=== PATIENT | male | born 1985 | race African-American/Black ===

== ENCOUNTER 2019-12-20 09:15 | Outpatient (REF) | payer OTHER, SELFPAY ==
[2019-12-20 11:02] LABS: Alanine Aminotransferase 74 U/L (0-40); Albumin Level 4.4 g/dL (3.5-5.0); Alkaline Phosphatase 53 U/L (39-117); Anion Gap 12 (12-20); Aspartate Amino Transferase 48 U/L (5-37); Bilirubin Total 0.7 mg/dL (0.0-1.0); Blood Urea Nitrogen 11 mg/dL (9-16); Calcium 8.4 mg/dL (8.4-10.2); Carbon Dioxide 24 mmol/L (22-29); Chloride 105 mmol/L (96-108); Cholesterol 246 mg/dL; Estimated Glomerular Filt Rate > 60; Glucose Fasting 88 mg/dL (60-99); HDL Cholesterol 72 mg/dL; LDL Cholesterol Calculated 153 mg/dl; Potassium 4.1 mmol/l (3.3-5.1); Sodium 137 mmol/L (135-145); Total Protein 7.3 g/dL (6.5-8.0); Triglycerides 105 mg/dL
[2019-12-20 11:11] LABS: Estimated Average Glucose 111 mg/dL; Hemoglobin A1c % 5.5 %
[2019-12-20 11:41] LABS: HBsAGNum1 0.24 S/CO (0.00-0.99); HIV AB/AG Nonreactive (Nonreactive); HIV Num 1 0.07 S/CO (0.00-0.99); Hepatitis B Surface Antigen Negative (Negative)
[2019-12-20 11:44] LABS: HBS Num1 133.55 mIU/mL (0-7.99); HBc Num1 0.05 S/CO (0.00-0.79); Hepatitis B Core Antibody Nonreactive (Nonreactive); ~HepC Num1 0.14 S/CO (0.00-0.79); ~Hepatitis B Surface Antibody REACTIVE (Nonreactive); ~Hepatitis C Antibody Nonreactive (Nonreactive)
[2019-12-20 11:47] LABS: Syphilis Screen Nonreactive (Nonreactive)
[2019-12-25 13:52] LABS: Chlamydia Pneumoniae IgA <1:16 titer (<1:16); Chlamydia Pneumoniae IgM <1:10 titer (<1:10); Chlamydia Psittaci IgA <1:16 titer (<1:16); Chlamydia Psittaci IgG <1:64 titer (<1:64); Chlamydia Psittaci IgM <1:10 titer (<1:10); Chlamydia Trachomatis IgA <1:16 titer (<1:16); Chlamydia Trachomatis IgG <1:64 titer (<1:64); Chlamydia Trachomatis IgM <1:10 titer (<1:10)
== END 2019-12-20 09:16 | disposition home or self-care (01) ==
LOC: HO.LAB 09:15
PROVIDERS: Visit Provider Physician Assistant
DX: Z13.1 Encounter for screening for diabetes mellitus (principal); Z13.220 Encounter for screening for lipoid disorders; Z11.3 Encounter for screening for infections with a predominantly sexual mode of transmission; Z11.4 Encounter for screening for human immunodeficiency virus [HIV]
CPT/HCPCS: 80053; 80061; 83036; 86631; 86632; 86704; 86706; 86780; 86803; 87340; 87389

== ENCOUNTER 2020-02-15 23:30 | Emergency (ER) | payer MEDICARE, MEDICAID, SELFPAY ==
[2020-02-15 23:32] VITALS: BP 131/76; PULSE 120; RESP 18; TEMP 36.4; O2SAT 96; BMI 30.7
--- NOTE | 2020-02-16 | ED_ITS ---
HPI - Chest Pain General Chief Complaint: Chest Pain Stated Complaint: CHEST PAIN Time Seen by Provider: 02/15/20 23:54 Source: patient Mode of arrival: ambulatory Limitations: no limitations History of Present Illness HPI narrative: Patient with no significant risk factor for coronary disease been having pain in the right lower part of the chest continues for last 2 days increases on palpation and movements no shortness of breath feels anxious was at [facility] 2 days ago for headache. complaint: chest pain Onset (ago): day(s) (2) Timing of current episode: constant Prior episodes: No Onset: during rest Pain location: right chest Pain radiation: none Severity: mild Quality: dull Relieving factors: nothing Exacerbating factors: palpation and movement Treatment prior to arrival: none Risk Factors Coronary artery disease risk factors: none Related Data Previous Rx's Medication Instructions Recorded albuterol sulfate 90 mcg/actuation 2 puff INHALATION Q6H PRN 30 Days 12/18/19 aerosol inhaler #8.5 g montelukast 10 mg tablet 10 mg PO BEDTIME 30 Days #30 tab 12/18/19 atomoxetine 40 mg capsule 40 mg PO DAILY #30 cap 02/05/20 Allergies Allergy/AdvReac Type Severity Reaction Status Date / Time No Known Allergies Allergy Verified 12/16/19 15:08 [No Known Allergies*] Review of Systems Review of Systems: Constitutional : No Weight loss, No Fever, No Chills ENT/Mouth : No sore throat, No Rhinorrhea Eyes: No Eye Pain, No Swelling Cardiovascular : + Chest Pain, no palpitations Respiratory : No Cough, No Sputum, no shortness of breath Gastrointestinal : no Nausea, No Vomiting, No Diarrhea, No abdominal Pain, no black stools Genitourinary : No Dysuria, No Urinary Frequency Musculoskeletal : No joint pain, No Myalgias, No Joint Swelling Skin : No Skin Lesions, No rash Neuro : No Weakness, No Numbness, No Dizziness, No Headache Psych : No Anxiety/Panic, No Depression Heme/Lymph: No Bruising, No Lymphadenopathy Endocrine : No Polyuria, No Polydipsia All other systems reviewed and are negative [facility] Past Medical History Medical History ADHD Asthma Social History Social History Alcohol intake: current Smoking Status: Never smoker Advance Directives: No Advance Directives Information Provided: No Physical Exam Vital Signs: Vital Signs: Last Vital Signs Temp 97.8 F 02/16/20 00:03 Pulse 106 H 02/16/20 00:03 Resp 20 02/16/20 00:03 BP 124/86 02/16/20 00:03 Pulse Ox 95 02/16/20 00:03 Body Mass Index 30.7 Appearance: Alert. Oriented X3. No acute distress. Anxious Eyes: Pupils equal, round and reactive to light. ENT: Pharynx normal. Neck: Normal inspection. Neck supple. CVS: Normal heart rate and rhythm. Pulses normal. Local muscular tenderness right lower chest in the front Respiratory: No respiratory distress. Breath sounds normal. Abdomen: Soft and nontender. Bowel sounds are present, no mass palpable, no CVA tenderness Skin: Skin warm and dry. Normal skin color. Normal skin turgor. Extremities: No lower extremity edema. No calf tenderness Neuro: Oriented X 3. No motor deficit. No sensory deficit. MDM - Chest Pain Lab Data Attestation: I reviewed the patient's lab results. ECG Data ECG #1: Attestation: I personally reviewed and interpreted this ECG as follows: Interpretation: Sinus tachycardia heart rate [address] T wave changes normal axis normal intervals impression sinus tachycardia no acute ischemia Discharge Plan Discharge Prescriptions: No Action albuterol sulfate 90 mcg/actuation HFA aerosol inhaler 2 puff inhalation Q6H PRN (Reason: shortness of breath or wheezing) 30 Days Qty: 8.5 RF: 3 montelukast [Singulair] 10 mg tablet 10 mg PO BEDTIME 30 Days Qty: 30 RF: 1 atomoxetine 40 mg capsule 40 mg PO DAILY Qty: 30 RF: 0
[2020-02-16 00:03] VITALS: BP 124/86; PULSE 106; RESP 20; TEMP 36.6; O2SAT 95
--- NOTE | 2020-02-16 00:08 | ECG_ITS ---
Test Reason : CP Blood Pressure : / mmHG Vent. Rate : 111 BPM Atrial Rate : 111 BPM P-R Int : 128 ms QRS Dur : 084 ms QT Int : 322 ms P-R-T Axes : 034 -17 027 degrees QTc Int : 437 ms Sinus tachycardia Otherwise normal ECG No previous ECGs available Referred By: Brandon Mathis Electronically Signed By:HADLEY HITCHCOCK
--- NOTE | 2020-02-16 00:08 | XR_ITS ---
EXAMINATION: XR CHEST CLINICAL INFORMATION: Right-sided chest pain COMPARISON: 11/15/2016 TECHNIQUE: Frontal view of the chest was obtained. FINDINGS: Cardiac leads overlie the chest. Lung volumes are low. There is no focal consolidation, edema, or effusion. No pneumothorax. The cardiomediastinal silhouette is within normal limits. No acute osseous abnormality. XR/XR chest 1V IMPRESSION: Hypoexpanded, clear lungs.
[2020-02-16] MEDS: traMADoL HCL 50 MG TABLET PO (01:03)
== END 2020-02-16 01:06 | disposition home or self-care (01) ==
PROVIDERS: Emergency Provider Internal Medicine; PCP Physician Assistant
DX: R07.9 Chest pain, unspecified (principal); Z79.899 Other long term (current) drug therapy
CPT/HCPCS: 71045; 93005; 99284

== ENCOUNTER 2020-02-21 04:40 | Emergency (ER) | payer MEDICARE, SELFPAY ==
[2020-02-21 04:45] VITALS: BP 165/95; PULSE 106; RESP 18; TEMP 36.8; O2SAT 97; BMI 30.7
--- NOTE | 2020-02-21 05:14 | ECG_ITS ---
Test Reason : CHEST PAIN Blood Pressure : / mmHG Vent. Rate : 105 BPM Atrial Rate : 105 BPM P-R Int : 130 ms QRS Dur : 078 ms QT Int : 338 ms P-R-T Axes : 028 -13 012 degrees QTc Int : 446 ms Sinus tachycardia Otherwise normal ECG When compared with ECG of 15-FEB-2020 23:54, No significant change was found Referred By: Milena Hernandez Electronically Signed By:Feroz Londono
--- NOTE | 2020-02-21 05:14 | XR_ITS ---
EXAMINATION: XR CHEST CLINICAL INFORMATION: Pain COMPARISON: 02/16/2020 TECHNIQUE: Frontal view of the chest was obtained. FINDINGS: Lung volumes are low. No consolidation, edema, or effusion. No pneumothorax. The cardiomediastinal silhouette is within normal limits. XR/XR chest 1V IMPRESSION: Clear lungs.
--- NOTE | 2020-02-21 05:15 | ED_ITS ---
HPI - Chest Pain General Chief Complaint: Chest Pain Stated Complaint: Chest pain Time Seen by Provider: 02/21/20 04:51 Source: patient Mode of arrival: ambulatory Limitations: no limitations History of Present Illness HPI narrative: 34 yo male with asthma comes in with c/o 1 week of chest pain that is reproduceable to palpation and also anxiety, he c/o pain worse at night that is burning in nature and he c/o increased bloating/belching and having the taste of regurgitated food. MD complaint: chest pain Onset (ago): week(s) (1) Timing of current episode: episodic Prior episodes: No Onset: awoke with symptoms and other (worse with laying flat) Pain location: substernal and epigastric Pain radiation: none Severity: moderate Quality: burning Relieving factors: nothing Exacerbating factors: eating and supine Associated symptoms: nausea, dyspnea and other (anxiety) Treatment prior to arrival: none Related Data Previous Rx's Medication Instructions Recorded albuterol sulfate 90 mcg/actuation 2 puff INHALATION Q6H PRN 30 Days 12/18/19 aerosol inhaler #8.5 g montelukast 10 mg tablet 10 mg PO BEDTIME 30 Days #30 tab 12/18/19 atomoxetine 40 mg capsule 40 mg PO DAILY #30 cap 02/05/20 lorazepam [Ativan] 1 mg PO BEDTIME PRN #7 tab 02/16/20 tramadol 50 mg PO Q6H PRN #14 tab 02/16/20 cyclobenzaprine 10 mg PO TID PRN #14 tab 02/21/20 Allergies Allergy/AdvReac Type Severity Reaction Status Date / Time No Known Allergies Allergy Verified 12/16/19 15:08 [No Known Allergies*] Review of Systems Review of Systems: Constitutional : No Weight loss, No Fever, No Chills ENT/Mouth : No sore throat, No Rhinorrhea Eyes: No Eye Pain, No Swelling Cardiovascular : pos Chest Pain, pos SOB, no Dyspnea on Exertion, No Orthopnea, No Edema, No Palpitations Respiratory : No Cough, No Sputum Gastrointestinal : pos Nausea, No Vomiting, No Diarrhea, No abdominal Pain, No Hematochezia, No Melena Genitourinary : No Dysuria, No Urinary Frequency Musculoskeletal : No joint pain, No Myalgias, No Joint Swelling Skin : No Skin Lesions, No rash Neuro : No Weakness, No Numbness, No Dizziness, No Headache Psych : No Anxiety/Panic, No Depression Heme/Lymph: No Bruising, No Lymphadenopathy Endocrine : No Polyuria, No Polydipsia All other systems reviewed and are negative [facility] Past Medical History Attestation statement: The following information was validated with the patient. Medical History ADHD Asthma Social History Social History Alcohol intake: current Smoking Status: Never smoker Advance Directives: No Physical Exam Vital Signs: Vital Signs: Last Vital Signs Temp 98.3 F 02/21/20 04:45 Pulse 106 H 02/21/20 04:45 Resp 18 02/21/20 04:45 BP 165/95 H 02/21/20 04:45 Pulse Ox 97 02/21/20 04:45 Body Mass Index 30.7 Appearance: Alert. Oriented X3. No acute distress. Eyes: Pupils equal, round and reactive to light. ENT: Pharynx normal. Neck: Normal inspection. Neck supple. CVS: Normal heart rate and rhythm. Pulses normal. Chest: ttp along bilateral lower ribs Respiratory: No respiratory distress. Breath sounds normal. Abdomen: Soft and nontender. Skin: Skin warm and dry. Normal skin color. Normal skin turgor. Extremities: No lower extremity edema. No calf ttp Neuro: Oriented X 3. No motor deficit. No sensory deficit. Course Course Course Narrative: patient rude to RN , now stating he refuses blood work and wants to leave, explained to him without labs I cannot fully diagnose what is going on, he states I am not doing bloodwork and still wants to leave MDM - Chest Pain MDM Narrative Medical decision making narrative: 34 yo male here with 1 week of reproduceable chest pain worse at night while laying flat c/o bloating/belching and burning in throat, no sig ACS risk factors, no signs of DVT, no hypxoa seems unusual for PE to be worse at night with associated GERD symptoms, labs, EKG, CXR, GI cocktail ordered, dispo per results and findings. ECG Data ECG #1: Attestation: I personally reviewed and interpreted this ECG as follows: ECG interpretation date: 02/21/20 ECG interpretation time: 05:36 Interpretation: Rate: 105 Rhythm: sinus tachycardia [place]: left Normal P waves. Normal [place]. Normal QRS complex. ST T wave : no MONIKA, normal qTC: normal prior studies: no acute ischemia The study has been interpreted contemporaneously by me. . Discharge Plan Discharge Clinical Impression: Chest pain Patient Disposition: Left Against Medical Advice Instructions: Chest Pain (ED), Against Medical Advice (ED) Additional Instructions: return to ED for any worsening symptoms or concerns you left prior to blood work, you had an EKG and CXR but it cannot be determined at this time what is causing your pain please follow up with your doctor Prescriptions: New cyclobenzaprine 10 mg tablet 10 mg PO TID PRN (Reason: muscle spasm) Qty: 14 RF: 0 No Action albuterol sulfate 90 mcg/actuation HFA aerosol inhaler 2 puff inhalation Q6H PRN (Reason: shortness of breath or wheezing) 30 Days Qty: 8.5 RF: 3 montelukast [Singulair] 10 mg tablet 10 mg PO BEDTIME 30 Days Qty: 30 RF: 1 atomoxetine 40 mg capsule 40 mg PO DAILY Qty: 30 RF: 0 tramadol 50 mg tablet 50 mg PO Q6H PRN (Reason: pain) Qty: 14 RF: 0 lorazepam [Ativan] 1 mg tablet 1 mg PO BEDTIME PRN (Reason: anxiety) Qty: 7 RF: 0 Referrals: Giacomo Chu PA-C [Primary Care Provider] - 2 days Stand Alone Forms: Work/School Release
[2020-02-21] MEDS: Magnesium Hydrox/Alum Hydrox 30 ML ORAL.SUSP PO (05:48)
[2020-02-21] MEDS: Lidocaine HCl Viscous 2 % 15 ML SOLUTION MUCOUS MEM (05:48)
[2020-02-21] MEDS: LORazepam 0.5 MG TABLET PO (05:48)
== END 2020-02-21 06:05 | disposition left against medical advice (07) ==
PROVIDERS: Emergency Provider Emergency Medicine; PCP Physician Assistant
DX: R07.9 Chest pain, unspecified (principal); F41.1 Generalized anxiety disorder; F43.0 Acute stress reaction; Z79.899 Other long term (current) drug therapy
CPT/HCPCS: 71045; 93005; 99283

== ENCOUNTER 2020-02-28 23:17 | Emergency (ER) | payer MEDICARE, MEDICAID, SELFPAY ==
[2020-02-28 23:32] VITALS: BP 134/87; PULSE 112; RESP 16; TEMP 36.6; O2SAT 96; BMI 30.7
--- NOTE | 2020-02-29 00:47 | ECG_ITS ---
Test Reason : HEADACHES Blood Pressure : / mmHG Vent. Rate : 097 BPM Atrial Rate : 097 BPM P-R Int : 132 ms QRS Dur : 076 ms QT Int : 342 ms P-R-T Axes : 043 -15 015 degrees QTc Int : 434 ms Normal sinus rhythm Normal ECG When compared with ECG of 21-FEB-2020 05:30, No significant change was found Referred By: Generic ED Physician Electronically Signed By:GIO TRIPATHI MD
[2020-02-29 01:05] LABS: MANUAL DIFF FLAG NO
[2020-02-29 01:10] LABS: Basophils Percent Auto 0.6 % (0-2); Eosinophils Absolute Auto 0.2 X10*3/uL (0.0-0.4); Eosinophils Percent Auto 3.8 % (0-4); Hematocrit 45.1 % (42-52); Hemoglobin 14.8 g/dl (14.0-18.0); Imm Gran Abs Auto 0.02 X10*3/uL (0.00-0.03); Imm Gran Pct Auto 0.4 % (0.0-0.4); Lymphocytes Absolute Auto 1.8 X10*3/uL (1.2-4.9); Mean Corpuscular HGB Conc 32.8 g/dl (31.0-36.0); Mean Corpuscular Hemoglobin 27.4 pg (27.0-33.0); Mean Corpuscular Volume 83.5 fL (80-98); Mean Platelet Volume 9.6 fL (9.4-12.4); Monocytes Absolute Auto 0.6 X10*3/uL (0.1-1.2); Monocytes Percent Auto 12.1 % (2-11); Neutrophils Absolute Auto 2.1 X10*3/uL (2.0-8.3); Neutrophils Percent Auto 45.1 % (45-73); Platelet Count 273 X10*3/uL (160-400); Red Cell Distribution Width 13.2 % (11.0-16.0); White Blood Count 4.7 X10*3/uL (4.8-10.8)
[2020-02-29 01:33] LABS: Anion Gap 13 (12-20); Blood Urea Nitrogen 12 mg/dL (9-16); Calcium 9.1 mg/dL (8.4-10.2); Carbon Dioxide 24 mmol/L (22-29); Chloride 107 mmol/L (96-108); Creatinine Clr Calc Pharmacy 165.7; Estimated Glomerular Filt Rate > 60; Glucose Random 108 mg/dL (60-115); Sodium 140 mmol/L (135-145)
[2020-02-29 01:38] LABS: Troponin-I High Sensitivity < 3.5 ng/L (<3.5-35.0)
[2020-02-29 02:00] VITALS: BP 106/78; PULSE 98; RESP 18; TEMP 36.6; O2SAT 98
--- NOTE | 2020-02-29 03:33 | ED.HA ---
HPI - Headache General Chief Complaint: General Medical Stated Complaint: MIGRAINE Time Seen by Provider: 02/29/20 03:30 Source: patient Mode of arrival: ambulatory History of Present Illness HPI Narrative: This is a 34-year-old male with ADHD, asthma who presents with a headache that he has been experiencing for the past couple of days and denies any falls, visual changes, but does describe some photosensitivity without neck tenderness and otherwise denies any speech or extremity sensory or motor changes. Related Data Previous Rx's Medication Instructions Recorded albuterol sulfate 90 mcg/actuation 2 puff INHALATION Q6H PRN 30 Days 12/18/19 aerosol inhaler #8.5 g montelukast 10 mg tablet 10 mg PO BEDTIME 30 Days #30 tab 12/18/19 atomoxetine 40 mg capsule 40 mg PO DAILY #30 cap 02/05/20 lorazepam [Ativan] 1 mg PO BEDTIME PRN #7 tab 02/16/20 tramadol 50 mg PO Q6H PRN #14 tab 02/16/20 cyclobenzaprine 10 mg PO TID PRN #14 tab 02/21/20 Allergies Allergy/AdvReac Type Severity Reaction Status Date / Time No Known Allergies Allergy Verified 02/28/20 23:31 [No Known Allergies*] Review of Systems Review of Systems: Pertinent positives and negatives as stated in HPI 10 point review of systems is otherwise negative. PMFSH Past Medical History Source: nursing notes reviewed Medical History ADHD Asthma Social History Social History Alcohol intake: current Smoking Status: Never smoker Advance Directives: No Advance Directives Information Provided: No Physical Exam Vital Signs: Vital Signs: Last Vital Signs Temp 97.8 F 02/29/20 02:00 Pulse 95 02/29/20 04:00 Resp 18 02/29/20 04:00 BP 108/72 02/29/20 04:00 Pulse Ox 98 02/29/20 04:00 Body Mass Index 30.7 VITAL SIGNS: Reviewed. GENERAL: Well developed, well nourished, in no acute distress. HEAD: Normocephalic/atraumatic, EYES: PERRLA, EOMI EARS: Ext canals without abnormality NOSE: Nares patent bilateral OROPHARYNX: no oral lesions noted, posterior pharynx clear NECK: Supple, no adenopathy LUNGS: Normal breath sounds. No adventitious sounds or accessory muscle use. SpO2<96> CARDIOVASCULAR: Regular rate and rhythm without noted murmurs, no JVD or lower extremity edema. ABDOMEN: Soft, non-tender, non-distended with bowel sounds. No rigidity. No guarding. No palpable masses or hernias noted SKIN: Inspection of the skin reveals no rashes NEUROLOGIC: Alert and oriented x 4. Strength and sensation to light touch were grossly intact x 4, no pronator drift. Course Course Course Narrative: This is a 34-year-old male with history and clinical presentation consistent headache associated with likely job-related stress and strain without any concerning findings of neurological deficits. No evidence to suggest intracranial bleeds and patient has been worked up for chest pain previously and again presents with an EKG that does not show any acute findings and a negative high sensitivity troponin. On review of remaining lab work there is no evidence systemic infection or anemia and patient responded well to the migraine cocktail and was discharged in stable condition with instructions to follow-up with his primary care provider. MDM - Headache Lab Data Result diagrams: 02/29/20 00:59 02/29/20 00:59 Labs: Lab Results 02/29/20 02/29/20 02/29/20 Range/Units 00:59 00:59 00:59 WBC 4.7 L (4.8-10.8) X10*3/uL RBC 5.40 (4.60-5.80) X10*6/uL Hgb 14.8 (14.0-18.0) g/dl Hct 45.1 (42-52) % MCV 83.5 (80-98) fL MCH 27.4 (27.0-33.0) pg MCHC 32.8 (31.0-36.0) g/dl RDW 13.2 (11.0-16.0) % Plt Count 273 (160-400) X10*3/uL MPV 9.6 (9.4-12.4) fL Immature Gran % (Auto) 0.4 (0.0-0.4) % Neut % (Auto) 45.1 (45-73) % Lymph % (Auto) 38.0 (20-40) % [place] % (Auto) 12.1 H (2-11) % Eos % (Auto) 3.8 (0-4) % Baso % (Auto) 0.6 (0-2) % Lymph # (Auto) 1.8 (1.2-4.9) X10*3/uL [place] # (Auto) 0.6 (0.1-1.2) X10*3/uL Eos # (Auto) 0.2 (0.0-0.4) X10*3/uL Baso # (Auto) 0.0 (0.0-0.2) X10*3/uL Abs Immat Gran (auto) 0.02 (0.00-0.03) X10*3/uL Absolute Neuts (auto) 2.1 (2.0-8.3) X10*3/uL Absolute Nucleated RBC 0.000 (0.0-0.012) X10*3/uL Nucleated RBC % (auto) 0.0 (0.0-0.2) /100WBC Hold Blue Top SEE NOTE Sodium 140 (135-145) mmol/L Potassium 4.0 (3.3-5.1) mmol/l Chloride 107 (96-108) mmol/L Carbon Dioxide 24 (22-29) mmol/L Anion Gap 13 (12-20) BUN 12 (9-16) mg/dL Creatinine 0.77 (0.5-1.4) mg/dL Estim Creat Clear Calc 165.7 Estimated GFR > 60 Random Glucose 108 (60-115) mg/dL Calcium 9.1 D (8.4-10.2) mg/dL Troponin I High Sens (<3.5-35.0) ng/L 02/29/20 Range/Units 00:59 WBC (4.8-10.8) X10*3/uL RBC (4.60-5.80) X10*6/uL Hgb (14.0-18.0) g/dl Hct (42-52) % MCV (80-98) fL MCH (27.0-33.0) pg MCHC (31.0-36.0) g/dl RDW (11.0-16.0) % Plt Count (160-400) X10*3/uL MPV (9.4-12.4) fL Immature Gran % (Auto) (0.0-0.4) % Neut % (Auto) (45-73) % Lymph % (Auto) (20-40) % [place] % (Auto) (2-11) % Eos % (Auto) (0-4) % Baso % (Auto) (0-2) % Lymph # (Auto) (1.2-4.9) X10*3/uL [place] # (Auto) (0.1-1.2) X10*3/uL Eos # (Auto) (0.0-0.4) X10*3/uL Baso # (Auto) (0.0-0.2) X10*3/uL Abs Immat Gran (auto) (0.00-0.03) X10*3/uL Absolute Neuts (auto) (2.0-8.3) X10*3/uL Absolute Nucleated RBC (0.0-0.012) X10*3/uL Nucleated RBC % (auto) (0.0-0.2) /100WBC Hold Blue Top Sodium (135-145) mmol/L Potassium (3.3-5.1) mmol/l Chloride (96-108) mmol/L Carbon Dioxide (22-29) mmol/L Anion Gap (12-20) BUN (9-16) mg/dL Creatinine (0.5-1.4) mg/dL Estim Creat Clear Calc Estimated GFR Random Glucose (60-115) mg/dL Calcium (8.4-10.2) mg/dL Troponin I High Sens < 3.5 (<3.5-35.0) ng/L ECG Data Attestation: I personally reviewed and interpreted this ECG as follows: Prior ECG tracings: available for review (02/21/2020 no acute changes on comparison) Interpretation: Normal sinus rhythm, HR-97, no evidence of acute ischemia, MT/QRS/QTC are within normal limits. Discharge Plan Discharge Clinical Impression: Headache Qualifiers: Headache type: unspecified Headache chronicity pattern: unspecified pattern Intractability: not intractable Qualified Code(s): R51.9 - Headache, unspecified Patient Disposition: Home, Self-Care Instructions: General Headache (ED) Additional Instructions: 1. Increase fluid hydration especially with water. 2. Tylenol 1000 mg, orally, every 6 hours as needed for headache control. Do not exceed 4000 mg within 24 hours. 3. Ibuprofen 400 mg, orally with milk or food, every 6 hours as needed for headache control. You may take in combination with the Tylenol for increased effect of headache control. 4. Please follow-up with your primary care provider by calling the office this morning. Please do not hesitate to return to the emergency department should she experience any worsening or new symptoms. Prescriptions: No Action albuterol sulfate 90 mcg/actuation HFA aerosol inhaler 2 puff inhalation Q6H PRN (Reason: shortness of breath or wheezing) 30 Days Qty: 8.5 RF: 3 montelukast [Singulair] 10 mg tablet 10 mg PO BEDTIME 30 Days Qty: 30 RF: 1 atomoxetine 40 mg capsule 40 mg PO DAILY Qty: 30 RF: 0 cyclobenzaprine 10 mg tablet 10 mg PO TID PRN (Reason: muscle spasm) Qty: 14 RF: 0 tramadol 50 mg tablet 50 mg PO Q6H PRN (Reason: pain) Qty: 14 RF: 0 lorazepam [Ativan] 1 mg tablet 1 mg PO BEDTIME PRN (Reason: anxiety) Qty: 7 RF: 0 Referrals: Giacomo Chu PA-C [Primary Care Provider] - 2 days (Please re-evaluate for headache that is suspected to be tension in nature.)
[2020-02-29 04:00] VITALS: BP 108/72; PULSE 95; RESP 18; O2SAT 98
[2020-02-29] MEDS: 0.9 % Sodium Chloride 1,000 ML 999 ML IV (04:34)
[2020-02-29] MEDS: diphenhydrAMINE HCL 50 MG/ML VIAL 25 MG IVPUSH (04:35)
[2020-02-29] MEDS: Acetaminophen 325 MG TABLET 975 MG PO (04:35)
[2020-02-29] MEDS: Ketorolac Tromethamine 15 MG/ML VIAL IVPUSH (04:36)
[2020-02-29] MEDS: Metoclopramide HCl 10 MG/2 ML VIAL IVPUSH (04:36)
[2020-02-29 06:00] VITALS: BP 111/71; PULSE 88; RESP 18; O2SAT 98
== END 2020-02-29 06:15 | disposition home or self-care (01) ==
PROVIDERS: Emergency Provider Student in an Organized Health Care Education/Training Program; PCP Physician Assistant
DX: G43.909 Migraine, unspecified, not intractable, without status migrainosus (principal); Z79.899 Other long term (current) drug therapy
CPT/HCPCS: 36415; 80048; 84484; 85025; 93005; 96361; 96374; 96375; 99284; J1200; J1885; J2765

== ENCOUNTER 2020-04-17 18:16 | Emergency (ER) | payer MEDICARE, MEDICAID, SELFPAY ==
--- NOTE | ~2020-04-17 | XR_ITS ---
EXAMINATION: XR CHEST CLINICAL INFORMATION: Upper respiratory tract infection COMPARISON: 02/21/2020 TECHNIQUE: Frontal view of the chest was obtained. FINDINGS: The lungs are hypoexpanded. Heart size is normal. No evidence of CHF. There is some patchy density seen at the left lung base with some new obscuration left hemidiaphragm consistent with a left lower lobe infiltrate. No pleural effusions are seen. The right lung is clear. XR/XR chest 1V IMPRESSION: Patchy density left lung base consistent with infiltrate.
[2020-04-17 18:42] VITALS: BP 123/79; PULSE 108; RESP 18; TEMP 36.7; O2SAT 96; BMI 37.0
--- NOTE | 2020-04-17 19:11 | ED.SOB ---
HPI - SOB/Dyspnea General Chief Complaint: Dyspnea Stated Complaint: sob Time Seen by Provider: 04/17/20 18:57 Source: patient Mode of arrival: ambulatory Limitations: no limitations History of Present Illness HPI Narrative: 34-year-old male with past medical history of asthma and ADHD presents with COVID like symptoms, shortness of breath, subjective fever and chills, sore throat and fatigue for the past 2 days. He does not report any chest pain or pressure, palpitations, abdominal pain, abdominal distention, dysuria, hematuria, loss of balance, weakness, or edema. Related Data Previous Rx's Medication Instructions Recorded albuterol sulfate 90 mcg/actuation 2 puff INHALATION Q6H PRN 30 Days 12/18/19 aerosol inhaler #8.5 g montelukast 10 mg tablet 10 mg PO BEDTIME 30 Days #30 tab 12/18/19 atomoxetine 40 mg capsule 40 mg PO DAILY #30 cap 02/05/20 lorazepam [Ativan] 1 mg PO BEDTIME PRN #7 tab 02/16/20 tramadol 50 mg PO Q6H PRN #14 tab 02/16/20 cyclobenzaprine 10 mg PO TID PRN #14 tab 02/21/20 albuterol sulfate 2 puff INHALATION Q4-6H PRN #8.5 g 04/17/20 azithromycin 250 mg PO DAILY 4 Days #4 tab 04/17/20 benzonatate [Tessalon Perles] 100 mg PO TID PRN #30 cap 04/17/20 cefuroxime axetil 500 mg PO Q12H 7 Days #14 tab 04/17/20 Allergies Allergy/AdvReac Type Severity Reaction Status Date / Time No Known Allergies Allergy Verified 04/17/20 18:47 [No Known Allergies*] Review of Systems Review of Systems: Constitutional: positive Fever, positive Chills, positive fatigue, positive Malaise ENT/Mouth: positive sore throat, positive runny nose Eyes: No Discharge Cardiovascular: No Chest Pain, positive SOB Respiratory: No Cough, No Sputum, No Wheezing, No Smoke Exposure, No Dyspnea Gastrointestinal: No Nausea, No Vomiting, No Diarrhea Genitourinary: no irregular bleeding, No Dysuria, No Urinary Frequency, No Hematuria, No Urinary Incontinence, No Urgency, No Flank Pain, Musculoskeletal: positive Myalgia Skin: No rash Neuro: No Headache Yes all other systems are reviewed and are negative [facility] Past Medical History Attestation statement: The following information was validated with the patient. Source: old records reviewed Medical History ADHD Asthma Social History Social History Alcohol intake: never Smoking Status: Never smoker Advance Directives: No Advance Directives Information Provided: Yes Physical Exam Vital Signs: Vital Signs: Last Vital Signs Temp 98.0 F 04/17/20 18:42 Pulse 108 H 04/17/20 18:42 Resp 18 04/17/20 18:42 BP 123/79 04/17/20 18:42 Pulse Ox 96 04/17/20 18:42 Body Mass Index 37.0 Appearance: Alert. Oriented X3. Mild distress. Appears tired Eyes: Pupils equal, round and reactive to light. EOMI, sclera nonicteric ENT: Pharynx normal. Neck: Normal inspection. Neck supple. CVS: Normal heart rate and rhythm. Pulses normal. Respiratory: No respiratory distress. Breath sounds normal. Abdomen: Soft and nontender. Skin: Skin warm and dry. Normal skin color. Normal skin turgor. Extremities: No lower extremity edema. Neuro: No motor deficit. No sensory deficit. Course Course Course Narrative: At 6:55 p.m. Patient was very upset, rolling his eyes that this INGREDIENT SCALER HELPER, stating that ?he is sick? and that he does not feel like he is being treated properly because he is sitting in a hallway chair. He is not forthcoming with information, upon my 1st assessment he stated that he did not speak Portuguese, once the principal automation engineer arrived, patient stated that he does speak Portuguese does not need an director industrial relations. 7:50 p.m. x-ray indicates suspicion of pneumonia, will order CBC, Chem 7 and D-dimer as heart rate elevated to 120 during ambulatory pulse ox. O2 saturation remains at 97% for pulse ox during ambulation. Fluid resuscitation will be done gently as this is highly suspicious for a viral infection. With his history of asthma, obesity, and body habitus consistent with someone that would have sleep apnea we will treat with azithromycin and ceftriaxone. Patient continues to roll his eyes that tawana INGREDIENT SCALER HELPER during re-evaluation assessment questions. 8:03 p.m. patient is asking for food and water, this INGREDIENT SCALER HELPER and RN went into discussed plan of care, patient is NPO until further testing. Patient visibly upset, rolling his eyes stating that nobody is helping him. Patient was politely reminded that he came to us for assistance. At 9:10 a.m. lab called to inform us that COVID swab was unable to be processed, RN into collect another sample. Patient refused. 9:46 p.m. plan of care is for patient to be discharged home with p.o. antibiotics, nebulizers and albuterol. MDM - SOB/Dyspnea Differential Diagnosis Differential diagnosis: Likely pneumonia and asthma with exacerbation Medical Records Attestation: I reviewed the patient's medical records. Lab Data Attestation: I reviewed the patient's lab results. Result diagrams: 04/17/20 20:19 04/17/20 20:19 Labs: Lab Results 04/17/20 04/17/20 04/17/20 Range/Units 20:18 20:19 20:19 WBC 4.4 L (4.8-10.8) X10*3/uL RBC 4.88 (4.60-5.80) X10*6/uL Hgb 13.7 L (14.0-18.0) g/dl Hct 41.2 L (42-52) % MCV 84.4 (80-98) fL MCH 28.1 (27.0-33.0) pg MCHC 33.3 (31.0-36.0) g/dl RDW 14.0 (11.0-16.0) % Plt Count 280 (160-400) X10*3/uL MPV 9.5 (9.4-12.4) fL Immature Gran % (Auto) 0.2 (0.0-0.4) % Neut % (Auto) 48.2 (45-73) % Lymph % (Auto) 40.1 H (20-40) % [place] % (Auto) 7.8 (2-11) % Eos % (Auto) 3.0 (0-4) % Baso % (Auto) 0.7 (0-2) % Lymph # (Auto) 1.8 (1.2-4.9) X10*3/uL [place] # (Auto) 0.3 (0.1-1.2) X10*3/uL Eos # (Auto) 0.1 (0.0-0.4) X10*3/uL Baso # (Auto) 0.0 (0.0-0.2) X10*3/uL Abs Immat Gran (auto) 0.01 (0.00-0.03) X10*3/uL Absolute Neuts (auto) 2.1 (2.0-8.3) X10*3/uL Absolute Nucleated RBC 0.000 (0.0-0.012) X10*3/uL Nucleated RBC % (auto) 0.0 (0.0-0.2) /100WBC D-Dimer < 200 NG/ML Sodium (135-145) mmol/L Potassium (3.3-5.1) mmol/L Chloride (96-108) mmol/L Carbon Dioxide (22-29) mmol/L Anion Gap (12-20) BUN (9-16) mg/dL Creatinine (0.5-1.4) mg/dL Estim Creat Clear Calc Estimated GFR Random Glucose (60-115) mg/dL Lactic Acid (0.5-2.0) mmol/L Calcium (8.4-10.2) mg/dL Troponin I High Sens < 3.5 (<3.5-35.0) ng/L 04/17/20 04/17/20 Range/Units 20:19 20:19 WBC (4.8-10.8) X10*3/uL RBC (4.60-5.80) X10*6/uL Hgb (14.0-18.0) g/dl Hct (42-52) % MCV (80-98) fL MCH (27.0-33.0) pg MCHC (31.0-36.0) g/dl RDW (11.0-16.0) % Plt Count (160-400) X10*3/uL MPV (9.4-12.4) fL Immature Gran % (Auto) (0.0-0.4) % Neut % (Auto) (45-73) % Lymph % (Auto) (20-40) % [place] % (Auto) (2-11) % Eos % (Auto) (0-4) % Baso % (Auto) (0-2) % Lymph # (Auto) (1.2-4.9) X10*3/uL [place] # (Auto) (0.1-1.2) X10*3/uL Eos # (Auto) (0.0-0.4) X10*3/uL Baso # (Auto) (0.0-0.2) X10*3/uL Abs Immat Gran (auto) (0.00-0.03) X10*3/uL Absolute Neuts (auto) (2.0-8.3) X10*3/uL Absolute Nucleated RBC (0.0-0.012) X10*3/uL Nucleated RBC % (auto) (0.0-0.2) /100WBC D-Dimer NG/ML Sodium 141 (135-145) mmol/L Potassium 4.1 (3.3-5.1) mmol/L Chloride 110 H (96-108) mmol/L Carbon Dioxide 23 (22-29) mmol/L Anion Gap 12 (12-20) BUN 10 (9-16) mg/dL Creatinine 0.82 (0.5-1.4) mg/dL Estim Creat Clear Calc 170.9 Estimated GFR > 60 Random Glucose 113 (60-115) mg/dL Lactic Acid 1.5 (0.5-2.0) mmol/L Calcium 8.4 D (8.4-10.2) mg/dL Troponin I High Sens (<3.5-35.0) ng/L Imaging Data Chest x-ray: Attestation: I personally reviewed and interpreted this imaging study as follows: Radiologist's impression: EXAMINATION: XR CHEST CLINICAL INFORMATION: Upper respiratory tract infection COMPARISON: 02/21/2020 TECHNIQUE: Frontal view of the chest was obtained. FINDINGS: The lungs are hypoexpanded. Heart size is normal. No evidence of CHF. There is some patchy density seen at the left lung base with some new obscuration left hemidiaphragm consistent with a left lower lobe infiltrate. No pleural effusions are seen. The right lung is clear. XR/XR chest 1V IMPRESSION: Patchy density left lung base consistent with infiltrate. ECG Data Attestation: I personally reviewed and interpreted this ECG as follows: ECG interpretation date: 03/05/21 ECG interpretation time: 20:03 Interpretation: Vent. Rate : 101 BPM Atrial Rate : 101 BPM P-R Int : 130 ms QRS Dur : 076 ms QT Int : 342 ms P-R-T Axes : 039 001 017 degrees QTc Int : 443 ms Sinus tachycardia Otherwise normal ECG When compared with ECG of 29-FEB-2020 00:53, No significant change was found Discharge Plan Discharge Clinical Impression: COVID-19 Pneumonia Qualifiers: Pneumonia type: due to unspecified organism Laterality: unspecified laterality Lung location: unspecified part of lung Qualified Code(s): J18.9 - Pneumonia, unspecified organism Patient Disposition: Home, Self-Care Instructions: Pneumonia (ED), COVID-19 (Coronavirus Disease 2019) (ED) Additional Instructions: You were evaluated for shortness of breath. Your x-ray indicates pneumonia. You declined a repeat COVID swab. You could possibly be positive for COVID-19, you must socially isolate per State and Federal guidelines. Please take azithromycin and cefpodoxime as directed. These medications are antibiotics. Use albuterol as needed for shortness of breath. Use Tessalon Perles as needed for coughing. Please follow-up with your primary care physician. If symptoms get worse return to the emergency department. Thank you for choosing this emergency department for evaluation. Please follow-up with primary care physician as needed. Return to the emergency department for any new, concerning, or worsening symptoms. Prescriptions: New benzonatate [Tessalon Perles] 100 mg capsule 100 mg PO TID PRN (Reason: cough) Qty: 30 RF: 0 azithromycin 250 mg tablet 250 mg PO DAILY 4 Days Qty: 4 RF: 0 cefuroxime axetil 500 mg tablet 500 mg PO Q12H 7 Days Qty: 14 RF: 0 albuterol sulfate 90 mcg/actuation HFA aerosol inhaler 2 puff inhalation Q4-6H PRN (Reason: shortness of breath or wheezing) Qty: 8.5 RF: 0 No Action albuterol sulfate 90 mcg/actuation HFA aerosol inhaler 2 puff inhalation Q6H PRN (Reason: shortness of breath or wheezing) 30 Days Qty: 8.5 RF: 3 montelukast [Singulair] 10 mg tablet 10 mg PO BEDTIME 30 Days Qty: 30 RF: 1 atomoxetine 40 mg capsule 40 mg PO DAILY Qty: 30 RF: 0 cyclobenzaprine 10 mg tablet 10 mg PO TID PRN (Reason: muscle spasm) Qty: 14 RF: 0 tramadol 50 mg tablet 50 mg PO Q6H PRN (Reason: pain) Qty: 14 RF: 0 lorazepam [Ativan] 1 mg tablet 1 mg PO BEDTIME PRN (Reason: anxiety) Qty: 7 RF: 0
--- NOTE | 2020-04-17 19:48 | ECG_ITS ---
Test Reason : CHEST PAIN Blood Pressure : / mmHG Vent. Rate : 101 BPM Atrial Rate : 101 BPM P-R Int : 130 ms QRS Dur : 076 ms QT Int : 342 ms P-R-T Axes : 039 001 017 degrees QTc Int : 443 ms Sinus tachycardia Otherwise normal ECG When compared with ECG of 29-FEB-2020 00:53, No significant change was found Referred By: Tia Whitfield Electronically Signed By:HADLEY HITCHCOCK
[2020-04-17 20:00] VITALS: BP 120/70; PULSE 98; RESP 20; TEMP 37; O2SAT 96
[2020-04-17 20:37] LABS: MANUAL DIFF FLAG NO
[2020-04-17 20:38] LABS: Basophils Percent Auto 0.7 % (0-2); Eosinophils Absolute Auto 0.1 X10*3/uL (0.0-0.4); Hematocrit 41.2 % (42-52); Hemoglobin 13.7 g/dl (14.0-18.0); Imm Gran Abs Auto 0.01 X10*3/uL (0.00-0.03); Imm Gran Pct Auto 0.2 % (0.0-0.4); Lymphocytes Absolute Auto 1.8 X10*3/uL (1.2-4.9); Lymphocytes Percent Auto 40.1 % (20-40); Mean Corpuscular HGB Conc 33.3 g/dl (31.0-36.0); Mean Corpuscular Hemoglobin 28.1 pg (27.0-33.0); Mean Corpuscular Volume 84.4 fL (80-98); Mean Platelet Volume 9.5 fL (9.4-12.4); Monocytes Absolute Auto 0.3 X10*3/uL (0.1-1.2); Monocytes Percent Auto 7.8 % (2-11); Neutrophils Absolute Auto 2.1 X10*3/uL (2.0-8.3); Neutrophils Percent Auto 48.2 % (45-73); Platelet Count 280 X10*3/uL (160-400); Red Blood Count 4.88 X10*6/uL (4.60-5.80); White Blood Count 4.4 X10*3/uL (4.8-10.8)
[2020-04-17 20:48] LABS: D Dimer < 200 NG/ML
[2020-04-17 21:11] LABS: Lactic Acid 1.5 mmol/L (0.5-2.0)
[2020-04-17 21:12] LABS: Anion Gap 12 (12-20); Blood Urea Nitrogen 10 mg/dL (9-16); Calcium 8.4 mg/dL (8.4-10.2); Carbon Dioxide 23 mmol/L (22-29); Chloride 110 mmol/L (96-108); Creatinine Clr Calc Pharmacy 170.9; Estimated Glomerular Filt Rate > 60; Glucose Random 113 mg/dL (60-115); Potassium 4.1 mmol/L (3.3-5.1); Sodium 141 mmol/L (135-145)
[2020-04-17 21:21] LABS: Troponin-I High Sensitivity < 3.5 ng/L (<3.5-35.0)
[2020-04-17] MEDS: cefTRIAXone sodium 1 GM in 0.9 % Sodium Chloride 50 ML IV (21:28)
[2020-04-17] MEDS: Ibuprofen 600 MG TABLET PO (21:29)
[2020-04-17] MEDS: Azithromycin 500 MG TABLET PO (21:29)
[2020-04-17] MEDS: 0.9 % Sodium Chloride 1,000 ML 999 ML IVCONT (21:29)
[2020-04-17 22:00] VITALS: BP 130/69; PULSE 96; RESP 18; TEMP 37.2; O2SAT 97
== END 2020-04-17 22:30 | disposition home or self-care (01) ==
PROVIDERS: Nurse Practitioner Family; Emergency Provider Internal Medicine
DX: U07.1 COVID-19 (principal); J12.82 Pneumonia due to coronavirus disease 2019; J45.909 Unspecified asthma, uncomplicated; Z79.899 Other long term (current) drug therapy
CPT/HCPCS: 36415; 71045; 80048; 83605; 84484; 85025; 85379; 87040; 93005; 96361; 96365; 99284; J0696

== ENCOUNTER 2020-07-07 11:11 | Emergency (ER) | payer MEDICARE, MEDICAID, SELFPAY ==
--- NOTE | ~2020-07-07 | XR_ITS ---
EXAMINATION: XR CHEST CLINICAL INFORMATION: Upper back pain COMPARISON: None TECHNIQUE: 2 views of the chest were obtained. FINDINGS: No significant abnormality is noted involving the heart, lungs, mediastinum, bony thorax or soft tissues. XR/XR chest 2V IMPRESSION: Unremarkable chest exam.
[2020-07-07 11:37] VITALS: BP 135/95; PULSE 102; RESP 18; O2SAT 97; BMI 41.8
--- NOTE | 2020-07-07 12:48 | ED_ITS ---
HPI - General Adult General Chief complaint: General Medical Stated complaint: back pain Time Seen by Provider: 07/07/20 12:07 Source: patient, RN notes reviewed and old records reviewed Mode of arrival: ambulatory Limitations: no limitations History of Present Illness HPI narrative: 34-year-old male with a past medical history of asthma, ADHD, obesity is coming here today with multiple complaints. Patient reports low back pain with no injury, swelling in his feet, gout like pain, headache, sore throat. Denies any CP, PND, SOB with or without exertion, palpitations, abdominal pain, epigastric pain, diarrhea. Related Data Home Medications Medication Instructions Recorded Confirmed dextroamphetamine-amphetamine ER 1 cap PO DAILY 06/02/20 25 mg 24hr capsule,extend release zolpidem 10 mg tablet 10 mg PO BEDTIME PRN 06/02/20 Previous Rx's Medication Instructions Recorded albuterol sulfate 90 mcg/actuation 2 puff INHALATION Q6H PRN 30 Days 12/18/19 aerosol inhaler #8.5 g montelukast 10 mg tablet 10 mg PO BEDTIME 30 Days #30 tab 12/18/19 atomoxetine 40 mg capsule 40 mg PO DAILY #30 cap 02/05/20 lorazepam [Ativan] 1 mg PO BEDTIME PRN #7 tab 02/16/20 tramadol 50 mg PO Q6H PRN #14 tab 02/16/20 cyclobenzaprine 10 mg PO TID PRN #14 tab 02/21/20 albuterol sulfate 2 puff INHALATION Q4-6H PRN #8.5 g 04/17/20 azithromycin 250 mg PO DAILY 4 Days #4 tab 04/17/20 benzonatate [Tessalon Perles] 100 mg PO TID PRN #30 cap 04/17/20 cefuroxime axetil 500 mg PO Q12H 7 Days #14 tab 04/17/20 ibuprofen 600 mg PO Q8H PRN #20 tab 07/07/20 loratadine [Claritin RediTabs] 10 mg PO DAILY PRN #20 tab 07/07/20 Allergies Allergy/AdvReac Type Severity Reaction Status Date / Time No Known Allergies Allergy Verified 06/02/20 11:28 [No Known Allergies*] Review of Systems Review of Systems: Constitutional : No Weight loss, No Fever, No Chills, No Night Sweats, No Fatigue, No Malaise ENT/Mouth : No Hearing loss, No Ear Pain, No Nasal Congestion, No Sinus Pain, No Hoarseness, No sore throat, No Rhinorrhea, No Swallowing Difficulty Eyes: No Eye Pain, No Swelling, No Redness, No Foreign Body, No Discharge, No Vision Changes Cardiovascular : No Chest Pain, No SOB, No Dyspnea on Exertion, No Orthopnea, No Edema, No Palpitations Respiratory : No Cough, No Sputum, No Wheezing, No Smoke Exposure, No Dyspnea Gastrointestinal : No Nausea, No Vomiting, No Diarrhea, No Constipation, No abdominal Pain, No Hematochezia, No Melena Genitourinary : no irregular bleeding, No Dysuria, No Urinary Frequency, No Hematuria, No Urinary Incontinence, No Urgency, No Flank Pain, No Urinary Flow Changes, No Hesitancy Musculoskeletal : No joint pain, No Myalgias, Joint Swelling ankle, back pain Skin : No Skin Lesions, No rash Neuro : No Weakness, No Numbness, No Paresthesias, No Loss of Consciousness, No Dizziness, No Headache Psych : No Anxiety/Panic, No Depression, No SI/HI/AH/VH, No Social Issues, Heme/Lymph: No Bruising, No Bleeding,No Lymphadenopathy Endocrine : No Polyuria, No Polydipsia, No Temperature Intolerance Yes all o ther systems are reviewed and are negative [facility] Past Medical History Medical History (Updated 07/07/20 @ 14:44 [address] Vandana Taylor [facility]) ADHD Asthma Surgical History No significant past surgical history Family History Family History Mother No problems noted. Father No problems noted. Social History Social History Alcohol intake: current Alcohol intake frequency: holidays/special occasions only Smoking Status: Never smoker Advance Directives: No Advance Directives Information Provided: No Physical Exam Vital Signs: Vital Signs: Last Vital Signs Pulse 94 07/07/20 12:52 Resp 18 07/07/20 12:52 BP 132/95 H 07/07/20 12:52 Pulse Ox 97 07/07/20 12:52 Body Mass Index 41.8 Const: General: healthy appearing, no acute distress and well developed Nutritional Appearance: well nourished Orientation/consciousness: patient oriented x3 Neck: Neck: Yes normal visual inspection, Yes full ROM and Yes trachea midline Thyroid: Thyroid normal Resp: Auscultation: clear to auscultation bilaterally Cardio: Rate: regular rate Rhythm: regular rhythm GI: Inspection: Yes normal to inspection and No distended Palpation (GI): No hepatosplenomegaly present Auscultation: normal bowel sounds Skin: General skin exam: elasticity normal, turgor normal and dry skin Neuro: General: patient oriented x3 Extrem: General: Yes edema Course Course Course Narrative: 34-year-old male here with multiple complaints. Patient reports of upper and lower back pain with known known surgery. Denies any urinary issues. Reports to be having bilateral lower extremity swelling and pain. Patient states that it feels like he has about. Denies any alcohol int mere for over a week. Will check uric acid and CRP, BNP, CBC, BMP, chest x-ray. We will also swab him for COVID. Patient is agreeable to plan of care and verbalizes understanding he was given the opportunity to ask questions and all questions answered. Patient will be medicated with Toradol for pain Reevaluation(s) Reevaluation #1: Patient was medicated with Toradol, reports some relief from the pain medication. Medical Decision Making Lab Data Result diagrams: 07/07/20 12:51 07/07/20 12:51 Labs: Lab Results 07/07/20 07/07/20 07/07/20 Range/Units 12:51 12:51 12:51 WBC 4.0 L (4.8-10.8) X10*3/uL RBC 4.84 (4.60-5.80) X10*6/uL Hgb 13.4 L (14.0-18.0) g/dl Hct 40.9 L (42-52) % MCV 84.5 (80-98) fL MCH 27.7 (27.0-33.0) pg MCHC 32.8 (31.0-36.0) g/dl RDW 13.8 (11.0-16.0) % Plt Count 238 (160-400) X10*3/uL MPV 9.6 (9.4-12.4) fL Immature Gran % (Auto) 0.5 H (0.0-0.4) % Neut % (Auto) 44.7 L (45-73) % Lymph % (Auto) 36.4 (20-40) % [place] % (Auto) 13.2 H (2-11) % Eos % (Auto) 4.7 H (0-4) % Baso % (Auto) 0.5 (0-2) % Lymph # (Auto) 1.5 (1.2-4.9) X10*3/uL [place] # (Auto) 0.5 (0.1-1.2) X10*3/uL Eos # (Auto) 0.2 (0.0-0.4) X10*3/uL Baso # (Auto) 0.0 (0.0-0.2) X10*3/uL Abs Immat Gran (auto) 0.02 (0.00-0.03) X10*3/uL Absolute Neuts (auto) 1.8 L (2.0-8.3) X10*3/uL Absolute Nucleated RBC 0.000 (0.0-0.012) X10*3/uL Nucleated RBC % (auto) 0.0 (0.0-0.2) /100WBC Sodium 139 (135-145) mmol/L Potassium 4.0 (3.3-5.1) mmol/L Chloride 109 H (96-108) mmol/L Carbon Dioxide 21 L (22-29) mmol/L Anion Gap 13 (12-20) BUN 8 L (9-16) mg/dL Creatinine 0.74 (0.5-1.4) mg/dL Estim Creat Clear Calc 201.9 Estimated GFR > 60 Random Glucose 86 (60-115) mg/dL Uric Acid 7.7 H (3.4-7.0) mg/dL Calcium 8.5 (8.4-10.2) mg/dL Total Bilirubin 0.2 (0.0-1.0) mg/dL AST 50 H (5-37) U/L ALT 86 H (0-40) U/L Alkaline Phosphatase 45 (39-117) U/L C-Reactive Protein 0.37 (< or = 0.50) mg/dL B-Natriuretic Peptide 30 (<100) pg/mL Total Protein 6.2 L (6.5-8.0) g/dL Albumin 3.7 (3.5-5.0) g/dL Urine Color Urine Appearance Urine pH (5.0-8.0) Ur Specific [place] (1.005-1.025) Urine Protein (NEG-TRACE) MG/DL Urine Glucose (UA) (NEG) MG/DL Urine Ketones (NEG) MG/DL Urine Blood (NEG) Urine Nitrite (NEG) Ur Leukocyte Esterase (NEG) Coronavirus (PCR) (Negative) Influenza Type A (PCR) (Negative) Influenza Type B (PCR) (Negative) RSV RNA Qual (PCR) (Negative) 07/07/20 07/07/20 Range/Units 12:58 13:15 WBC (4.8-10.8) X10*3/uL RBC (4.60-5.80) X10*6/uL Hgb (14.0-18.0) g/dl Hct (42-52) % MCV (80-98) fL MCH (27.0-33.0) pg MCHC (31.0-36.0) g/dl RDW (11.0-16.0) % Plt Count (160-400) X10*3/uL MPV (9.4-12.4) fL Immature Gran % (Auto) (0.0-0.4) % Neut % (Auto) (45-73) % Lymph % (Auto) (20-40) % [place] % (Auto) (2-11) % Eos % (Auto) (0-4) % Baso % (Auto) (0-2) % Lymph # (Auto) (1.2-4.9) X10*3/uL [place] # (Auto) (0.1-1.2) X10*3/uL Eos # (Auto) (0.0-0.4) X10*3/uL Baso # (Auto) (0.0-0.2) X10*3/uL Abs Immat Gran (auto) (0.00-0.03) X10*3/uL Absolute Neuts (auto) (2.0-8.3) X10*3/uL Absolute Nucleated RBC (0.0-0.012) X10*3/uL Nucleated RBC % (auto) (0.0-0.2) /100WBC Sodium (135-145) mmol/L Potassium (3.3-5.1) mmol/L Chloride (96-108) mmol/L Carbon Dioxide (22-29) mmol/L Anion Gap (12-20) BUN (9-16) mg/dL Creatinine (0.5-1.4) mg/dL Estim Creat Clear Calc Estimated GFR Random Glucose (60-115) mg/dL Uric Acid (3.4-7.0) mg/dL Calcium (8.4-10.2) mg/dL Total Bilirubin (0.0-1.0) mg/dL AST (5-37) U/L ALT (0-40) U/L Alkaline Phosphatase (39-117) U/L C-Reactive Protein (< or = 0.50) mg/dL B-Natriuretic Peptide (<100) pg/mL Total Protein (6.5-8.0) g/dL Albumin (3.5-5.0) g/dL Urine Color YELLOW Urine Appearance CLEAR Urine pH 6.0 (5.0-8.0) Ur Specific [place] 1.020 (1.005-1.025) Urine Protein NEG (NEG-TRACE) MG/DL Urine Glucose (UA) NEG (NEG) MG/DL Urine Ketones NEG (NEG) MG/DL Urine Blood NEG (NEG) Urine Nitrite NEG (NEG) Ur Leukocyte Esterase NEG (NEG) Coronavirus (PCR) NEGATIVE (Negative) Influenza Type A (PCR) NEGATIVE (Negative) Influenza Type B (PCR) NEGATIVE (Negative) RSV RNA Qual (PCR) NEGATIVE (Negative) Discharge Plan Discharge Clinical Impression: Back pain, Seasonal allergies, Bilateral leg edema Patient Disposition: Home, Self-Care Instructions: Leg Edema (ED), Back Pain (ED) Additional Instructions: You were seen here today for back pain, bilateral lower leg swelling headache and a sore throat. We tested you for COVID which was negative. Please follow- up with your primary care doctor to further investigate your swelling of your lower legs. Your inflammatory markers were negative for any inflammation. Your liver enzymes were slightly elevated please follow-up with your primary care doctor. I will be sending you home with ibuprofen and Claritin for seasonal allergies Prescriptions: New ibuprofen 600 mg tablet 600 mg PO Q8H PRN (Reason: pain) Qty: 20 RF: 0 loratadine [Claritin RediTabs] 10 mg tablet,disintegrating 10 mg PO DAILY PRN (Reason: allergy symptoms) Qty: 20 RF: 0 No Action albuterol sulfate 90 mcg/actuation HFA aerosol inhaler 2 puff inhalation Q6H PRN (Reason: shortness of breath or wheezing) 30 Days Qty: 8.5 RF: 3 montelukast [Singulair] 10 mg tablet 10 mg PO BEDTIME 30 Days Qty: 30 RF: 1 atomoxetine 40 mg capsule 40 mg PO DAILY Qty: 30 RF: 0 cyclobenzaprine 10 mg tablet 10 mg PO TID PRN (Reason: muscle spasm) Qty: 14 RF: 0 tramadol 50 mg tablet 50 mg PO Q6H PRN (Reason: pain) Qty: 14 RF: 0 lorazepam [Ativan] 1 mg tablet 1 mg PO BEDTIME PRN (Reason: anxiety) Qty: 7 RF: 0 benzonatate [Tessalon Perles] 100 mg capsule 100 mg PO TID PRN (Reason: cough) Qty: 30 RF: 0 azithromycin 250 mg tablet 250 mg PO DAILY 4 Days Qty: 4 RF: 0 cefuroxime axetil 500 mg tablet 500 mg PO Q12H 7 Days Qty: 14 RF: 0 albuterol sulfate 90 mcg/actuation HFA aerosol inhaler 2 puff inhalation Q4-6H PRN (Reason: shortness of breath or wheezing) Qty: 8.5 RF: 0 Stand Alone Forms: Work/School Release Interventions: ED Discharge Assessment Last Done: 07/07/20 14:48 Discharge Date/Time: 07/07/20 14:49
[2020-07-07 12:52] VITALS: BP 132/95; PULSE 94; RESP 18; O2SAT 97
--- NOTE | 2020-07-07 12:55 | PC.NURSE ---
PT REFUSED NASAL RESPIRATORY PANEL SWAB. RN AND PROVIDER AWARE.
[2020-07-07 13:02] LABS: MANUAL DIFF FLAG NO
[2020-07-07 13:06] LABS: Basophils Percent Auto 0.5 % (0-2); Eosinophils Absolute Auto 0.2 X10*3/uL (0.0-0.4); Eosinophils Percent Auto 4.7 % (0-4); Hematocrit 40.9 % (42-52); Hemoglobin 13.4 g/dl (14.0-18.0); Imm Gran Abs Auto 0.02 X10*3/uL (0.00-0.03); Imm Gran Pct Auto 0.5 % (0.0-0.4); Lymphocytes Absolute Auto 1.5 X10*3/uL (1.2-4.9); Lymphocytes Percent Auto 36.4 % (20-40); Mean Corpuscular HGB Conc 32.8 g/dl (31.0-36.0); Mean Corpuscular Hemoglobin 27.7 pg (27.0-33.0); Mean Corpuscular Volume 84.5 fL (80-98); Mean Platelet Volume 9.6 fL (9.4-12.4); Monocytes Absolute Auto 0.5 X10*3/uL (0.1-1.2); Monocytes Percent Auto 13.2 % (2-11); Neutrophils Absolute Auto 1.8 X10*3/uL (2.0-8.3); Neutrophils Percent Auto 44.7 % (45-73); Platelet Count 238 X10*3/uL (160-400); Red Blood Count 4.84 X10*6/uL (4.60-5.80); Red Cell Distribution Width 13.8 % (11.0-16.0)
[2020-07-07 13:08] LABS: Glucose Urine UA NEG (NEG); Leukocyte Esterase Urine NEG (NEG); Nitrite Urine NEG (NEG); Urine Blood NEG (NEG); Urine Ketones NEG (NEG); Urine Protein NEG (NEG-TRACE)
[2020-07-07 13:09] LABS: Appearance Urine CLEAR; Color Urine YELLOW
[2020-07-07 13:26] LABS: Alanine Aminotransferase 86 U/L (0-40); Albumin Level 3.7 g/dL (3.5-5.0); Alkaline Phosphatase 45 U/L (39-117); Anion Gap 13 (12-20); Aspartate Amino Transferase 50 U/L (5-37); Bilirubin Total 0.2 mg/dL (0.0-1.0); Blood Urea Nitrogen 8 mg/dL (9-16); C Reactive Protein 0.37 mg/dL (< or = 0.50); Calcium 8.5 mg/dL (8.4-10.2); Carbon Dioxide 21 mmol/L (22-29); Chloride 109 mmol/L (96-108); Creatinine Clr Calc Pharmacy 201.9; Estimated Glomerular Filt Rate > 60; Glucose Random 86 mg/dL (60-115); Sodium 139 mmol/L (135-145); Total Protein 6.2 g/dL (6.5-8.0)
[2020-07-07 13:31] LABS: B Type Natriuretic Peptide 30 pg/mL (<100)
[2020-07-07] MEDS: Ketorolac Tromethamine 30 MG/ML VIAL IVPUSH (13:39)
[2020-07-07 13:44] LABS: Uric Acid 7.7 mg/dL (3.4-7.0)
[2020-07-07 14:11] LABS: Influenza A PCR NEGATIVE (Negative); Influenza B PCR NEGATIVE (Negative); Resp Syncy Virus RNA Qual PCR NEGATIVE (Negative); SARS COV2 PCR INHOUSE NEGATIVE (Negative)
== END 2020-07-07 14:49 | disposition home or self-care (01) ==
PROVIDERS: Nurse Practitioner Family; Emergency Provider Emergency Medicine; PCP Internal Medicine
DX: M54.5 Low back pain (principal); R22.43 Localized swelling, mass and lump, lower limb, bilateral; J30.2 Other seasonal allergic rhinitis; Z20.822 Contact with and (suspected) exposure to COVID-19; J45.909 Unspecified asthma, uncomplicated; F90.9 Attention-deficit hyperactivity disorder, unspecified type; E66.9 Obesity, unspecified; Z79.899 Other long term (current) drug therapy; M79.662 Pain in left lower leg; M79.661 Pain in right lower leg
CPT/HCPCS: 0241U; 36415; 71046; 80053; 81003; 83880; 84550; 85025; 86140; 96374; 99283; 99284; J1885

== ENCOUNTER → 2020-10-13 13:25 | Outpatient (BNVA) | payer MEDICARE, MEDICAID, SELFPAY | PROVIDERS: PCP Internal Medicine; Visit Provider Urology | DX: Z30.09 Encounter for other general counseling and advice on contraception (principal); F41.8 Other specified anxiety disorders | CPT/HCPCS: 99202 ==

== ENCOUNTER 2020-10-23 12:43 | Emergency (ER) | payer MEDICARE, MEDICAID, SELFPAY ==
[2020-10-23 13:09] VITALS: BP 132/77; PULSE 96; RESP 16; TEMP 36.6; O2SAT 98; BMI 29.9
[2020-10-23 15:38] LABS: MANUAL DIFF FLAG NO
[2020-10-23 15:39] LABS: Basophils Percent Auto 0.5 % (0-2); Eosinophils Absolute Auto 0.2 X10*3/uL (0.0-0.4); Eosinophils Percent Auto 3.4 % (0-4); Hematocrit 42.6 % (42-52); Imm Gran Abs Auto 0.02 X10*3/uL (0.00-0.03); Imm Gran Pct Auto 0.3 % (0.0-0.4); Lymphocytes Absolute Auto 1.8 X10*3/uL (1.2-4.9); Lymphocytes Percent Auto 29.7 % (20-40); Mean Corpuscular HGB Conc 32.9 g/dl (31.0-36.0); Mean Corpuscular Hemoglobin 27.2 pg (27.0-33.0); Mean Corpuscular Volume 82.7 fL (80-98); Mean Platelet Volume 9.2 fL (9.4-12.4); Monocytes Absolute Auto 0.7 X10*3/uL (0.1-1.2); Monocytes Percent Auto 12.6 % (2-11); Neutrophils Absolute Auto 3.2 X10*3/uL (2.0-8.3); Neutrophils Percent Auto 53.5 % (45-73); Platelet Count 301 X10*3/uL (160-400); Red Blood Count 5.15 X10*6/uL (4.60-5.80); Red Cell Distribution Width 14.3 % (11.0-16.0); White Blood Count 5.9 X10*3/uL (4.8-10.8)
[2020-10-23 15:53] LABS: Anion Gap 11 (12-20); Blood Urea Nitrogen 11 mg/dL (9-16); Calcium 9.3 mg/dL (8.4-10.2); Carbon Dioxide 24 mmol/L (22-29); Chloride 110 mmol/L (96-108); Creatinine Clr Calc Pharmacy 148.9; Estimated Glomerular Filt Rate > 60; Glucose Random 79 mg/dL (60-115); Potassium 3.9 mmol/L (3.3-5.1); Sodium 141 mmol/L (135-145)
[2020-10-23 15:59] LABS: B Type Natriuretic Peptide < 10 pg/mL (<100)
== END 2020-10-23 17:18 | disposition left against medical advice (07) ==
PROVIDERS: Emergency Provider Emergency Medicine; PCP Internal Medicine
DX: R60.0 Localized edema (principal); M79.662 Pain in left lower leg; M79.661 Pain in right lower leg
CPT/HCPCS: 36415; 80048; 83880; 85025; 99282; 99283

== ENCOUNTER 2020-12-24 10:20 | Outpatient (REF) | payer MEDICARE, MEDICAID, SELFPAY ==
[2020-12-24 12:08] LABS: Cholesterol 212 mg/dL; HDL Cholesterol 69 mg/dL; LDL Cholesterol Calculated 124 mg/dl; Triglycerides 99 mg/dL
[2020-12-24 12:10] LABS: Thyroid Stimulating Hormone 0.69 uIU/mL (0.32-4.0)
== END 2020-12-24 10:21 | disposition home or self-care (01) ==
LOC: HO.LAB 10:20
PROVIDERS: PCP Internal Medicine; Visit Provider Internal Medicine
DX: Z00.00 Encounter for general adult medical examination without abnormal findings (principal); E03.9 Hypothyroidism, unspecified
CPT/HCPCS: 36415; 80061; 84443

== ENCOUNTER 2021-05-31 10:45 | Outpatient (REF) | payer MEDICARE, MEDICAID, SELFPAY ==
[2021-05-31 11:04] LABS: MANUAL DIFF FLAG NO
[2021-05-31 11:12] LABS: Basophils Percent Auto 0.6 % (0-2); Eosinophils Absolute Auto 0.2 X10*3/uL (0.0-0.4); Eosinophils Percent Auto 3.6 % (0-4); Hematocrit 41.5 % (42.0-52.0); Hemoglobin 13.7 g/dl (14.0-18.0); Imm Gran Abs Auto 0.02 X10*3/uL (0.00-0.03); Imm Gran Pct Auto 0.4 % (0.0-0.4); Lymphocytes Absolute Auto 1.6 X10*3/uL (1.2-4.9); Lymphocytes Percent Auto 34.2 % (20-40); Mean Corpuscular Hemoglobin 27.6 pg (27.0-33.0); Mean Corpuscular Volume 83.7 fL (80.0-98.0); Mean Platelet Volume 9.7 fL (9.4-12.4); Monocytes Absolute Auto 0.6 X10*3/uL (0.1-1.2); Neutrophils Absolute Auto 2.3 x10*3/uL (2.0-8.3); Neutrophils Percent Auto 49.2 % (45-73); Platelet Count 263 X10*3/uL (160-400); Red Blood Count 4.96 X10*6/uL (4.60-5.80); Red Cell Distribution Width 14.2 % (11.0-16.0); White Blood Count 4.8 X10*3/uL (4.8-10.8)
[2021-05-31 11:56] LABS: Alanine Aminotransferase 53 U/L (0-40); Albumin Level 3.8 g/dL (3.5-5.0); Alkaline Phosphatase 52 U/L (39-117); Anion Gap 9 (12-20); Aspartate Amino Transferase 45 U/L (5-37); Bilirubin Total 0.5 mg/dL (0.0-1.0); Blood Urea Nitrogen 12 mg/dL (9-16); Calcium 9.3 mg/dL (8.4-10.2); Carbon Dioxide 27 mmol/L (22-29); Chloride 106 mmol/L (96-108); Cholesterol 229 mg/dL; Estimated Glomerular Filt Rate > 60; Glucose Fasting 92 mg/dL (60-99); HDL Cholesterol 66 mg/dL; LDL Cholesterol Calculated 147 mg/dl; Potassium 4.1 mmol/L (3.3-5.1); Sodium 138 mmol/L (135-145); Total Protein 6.8 g/dL (6.5-8.0); Triglycerides 81 mg/dL
[2021-05-31 12:05] LABS: Thyroid Stimulating Hormone 0.85 uIU/mL (0.32-4.0); Vitamin D 25-OH Total 10.6 ng/mL (>30)
== END 2021-05-31 10:46 | disposition home or self-care (01) ==
LOC: HO.LAB 10:45
PROVIDERS: PCP Internal Medicine; Visit Provider Internal Medicine
DX: Z00.00 Encounter for general adult medical examination without abnormal findings (principal); Z13.0 Encounter for screening for diseases of the blood and blood-forming organs and certain disorders involving the immune mechanism; Z13.9 Encounter for screening, unspecified
CPT/HCPCS: 36415; 80053; 80061; 82306; 84443; 85025

== ENCOUNTER 2021-06-08 09:41 | Emergency (ER) | payer MEDICARE, MEDICAID, SELFPAY ==
--- NOTE | ~2021-06-08 | XR_ITS ---
EXAMINATION: XR CHEST CLINICAL INFORMATION: Bilateral lower extremity edema. Rule out CHF. COMPARISON: Prior chest radiographs, most recently 07/07/2020 TECHNIQUE: Frontal view of the chest was obtained. FINDINGS: No significant abnormality is noted involving the heart, lungs, mediastinum, bony thorax or soft tissues. XR/XR chest 1V IMPRESSION: Unremarkable examination.
--- NOTE | ~2021-06-08 | US_ITS ---
EXAMINATION: US VENOUS ULTRASOUND WITH DOPPLER LOWER EXTREMITY, BILATERAL CLINICAL INFORMATION: Bilateral lower extremity edema and pain COMPARISON: None TECHNIQUE: Ultrasound of the deep veins is performed from the hip to the calf with compression sonography and color and pulse Doppler assessment. Spectral analysis with color-flow imaging is performed. FINDINGS: RIGHT: There is normal venous compression and respiratory variation and augmented flow. The visualized common femoral vein, superficial femoral vein, profunda femoral vein, popliteal vein, and the trifurcation region shows no evidence of deep venous thrombosis. There is no significant popliteal fossa cyst. LEFT: There is normal venous compression and respiratory variation and augmented flow. The visualized common femoral vein, superficial femoral vein, profunda femoral vein, popliteal vein, and the trifurcation region shows no evidence of deep venous thrombosis. There is no significant popliteal fossa cyst. If the patient's symptoms persist, followup ultrasound in 5 days 7 days might be of value to exclude proximal propagation from a non-visualized calf vein. US/US venous duplex LE BI IMPRESSION: No DVT demonstrated in the bilateral lower extremities.
[2021-06-08 10:02] VITALS: BP 145/82; PULSE 111; RESP 18; TEMP 36.1; O2SAT 95; BMI 40.0
--- NOTE | 2021-06-08 11:05 | ED.LOWEXIN ---
HPI - Extremity Injury (Lower) General Chief Complaint: Extremity Injury, Lower Stated Complaint: ?gout, foot swelling Time Seen by Provider: 06/08/21 10:55 Source: patient Mode of arrival: ambulatory History of Present Illness HPI Narrative: 35-year-old male with a past medical history of alcoholism, asthma, bipolar, obesity, ADHD, presenting to the ED complaining of bilateral LE pain and swelling x a few weeks. Admits symptoms began after was discharged from [facility]. Admits was seen at urgent care 1 week ago, prescribed Lasix daily with minimal relief. Reports mild intermittent SOB. Denies fever, chills, CP, abdominal pain, history of clots, recent travel Onset (ago): week(s) Related Data Previous Rx's Medication Instructions Recorded albuterol sulfate 2.5 mg (3 mL) INHALATION Q4-6H PRN 11/20/20 #180 ml montelukast 10 mg tablet 10 mg PO BEDTIME #30 tab 03/22/21 (Singulair) naltrexone 50 mg tablet 50 mg PO DAILY #30 tab 03/22/21 thiamine HCl (vitamin B1) 100 mg 100 mg PO DAILY #90 tab 03/22/21 tablet vitamin B comp and C no.3 15 mg-10 1 cap PO DAILY #60 cap 05/26/21 mg-50 mg-5 mg-300 mg capsule (B Complex Plus Vitamin C) albuterol sulfate 90 mcg/actuation 2 puff INHALATION Q4-6H PRN #8.5 g 06/07/21 aerosol inhaler cholecalciferol (vitamin D3) 25 25 mcg PO DAILY #90 tab 06/07/21 mcg (1,000 unit) tablet nicotine 21 mg/24 hr daily 1 patch TRANSDERMAL DAILY #28 ea 06/07/21 transdermal patch furosemide 20 mg tablet (Lasix) 10 mg PO QAM #10 tab 06/08/21 Allergies Allergy/AdvReac Type Severity Reaction Status Date / Time pineapple Allergy Itching Verified 06/08/21 10:02 Review of Systems Review of Systems: Constitutional: No Fever, No Chills, No [place] Fatigue, No Malaise ENT/Mouth: No Ear Pain, No Nasal Congestion, No sore throat, No Rhinorrhea, No Swallowing Difficulty Eyes: No Eye Pain, No Swelling, No Redness Cardiovascular: No Chest Pain, +intermittent SOB, No Dyspnea on Exertion, No Orthopnea, + Edema, No Palpitations Respiratory: No Cough, No Sputum, No Dyspnea Gastrointestinal: No Nausea, No Vomiting, No Diarrhea, No Constipation, No Abdominal pain Genitourinary: No Dysuria, No Urinary Frequency, No Hematuria, No Flank Pain, No Urinary Flow Changes Musculoskeletal: No joint pain, No Myalgias, No Joint Swelling Skin: No Skin Lesions, No rash Neuro: No Weakness, No Dizziness, No Headache Yes all other systems are reviewed and are negative [facility] Past Medical History Attestation statement: The following information was validated with the patient. Medical History ADHD Alcoholism Asthma Bipolar disorder Obesity Surgical History No significant past surgical history Family History Family History Mother No problems noted. Father No problems noted. Social History Social History Housing: Apartment Alcohol intake: current Alcohol intake frequency: does not drink Patient Tobacco Use Status: Never used Tobacco Tobacco use type: Cigarette Smoked in Last 30 Days: No e-Cigarette/Vaping Use: Never Used Second Hand Smoke Exposure: No Use of substances other than those prescribed or required for medical reasons: No Advance Directives: No Advance Directives Information Provided: No service: No Current occupational status: disabled Cognitive needs: No Hearing needs: No Vision needs: No Physical Exam Vital Signs: Vital Signs: Last Vital Signs Temp 97.0 F 06/08/21 10:02 Pulse 111 H 06/08/21 10:02 Resp 18 06/08/21 10:02 BP 145/82 H 06/08/21 10:02 Pulse Ox 95 06/08/21 10:02 BMI result Body Mass Index 40.0 Const: General: cooperative, healthy appearing, no acute distress, alert and awake Orientation/consciousness: patient oriented x3 Limitations: no limitations HEENT: Head: Yes normal to inspection and Yes atraumatic Ears: hearing grossly normal bilaterally General nose exam: Normal external nose present Face and sinus: Yes normal facial exam Eyes: General: appearance normal, both eyes and all related structures EOM: EOMs intact bilaterally Neck: Neck: Yes normal visual inspection and Yes no meningeal signs Resp: Effort & Inspection: normal respiratory effort and no respiratory distress Auscultation: clear to auscultation bilaterally, no rales, no rhonchi and no wheezes Cardio: Rate: regular rate Heart sounds: S1 normal heart sound present and S2 normal heart sound present Peripheral pulses: dorsalis pedis present GI: Inspection: Yes normal to inspection Palpation (GI): Soft to palpation, nontender, no guarding and not rigid Skin: Rashes: no rashes Wounds: no wounds Neuro: General: patient oriented x3, tone normal and no meningeal signs Gait exam (Neuro): Normal gait present Extrem: Other: + bilateral LE nonpitting edema > RLE. + bilateral calf pain. Neurovascular intact distally. No erythema or warmth Course Course Course Narrative: -[id number]--no leukocytosis. H/H stable. AST/ALT chronically elevated. BNP WNL. XR chest 1V IMPRESSION: Unremarkable examination. US venous duplex LE BI IMPRESSION: No DVT demonstrated in the bilateral lower extremities. > results discussed with patient including worrisome signs and symptoms and strict return precautions and need close follow-up with PCP. He verbalized understanding feel safe for discharge home MDM - Extremity Injury (Lower) MDM Narrative Medical decision making narrative: 35-year-old male with a past medical history of alcoholism, asthma, bipolar, obesity, ADHD, presenting to the ED complaining of bilateral LE pain and swelling x a few weeks. On exam tachycardic, NAD/nontoxic, lungs CTA, bilateral LE edema noted with calf tenderness. Concern for edema vs DVT vs CHF. Lower concern for PE. [id number] Medication side effect from Olanzapine started on 05/24/21-- 1-3% of people experience peripheral edema Plan: Labs, venous duplex ultrasound, CXR Medical Records Attestation: I reviewed the patient's medical records. Lab Data Attestation: I reviewed the patient's lab results. Result diagrams: 06/08/21 11:48 06/08/21 11:48 Labs: Lab Results 06/08/21 06/08/21 06/08/21 Range/Units 11:48 11:48 11:48 WBC 5.1 (4.8-10.8) X10*3/uL RBC 4.95 (4.60-5.80) X10*6/uL Hgb 13.6 L (14.0-18.0) g/dl Hct 40.9 L (42.0-52.0) % MCV 82.6 (80.0-98.0) fL MCH 27.5 (27.0-33.0) pg MCHC 33.3 (31.0-36.0) g/dl RDW 14.2 (11.0-16.0) % Plt Count 323 (160-400) X10*3/uL MPV 9.4 (9.4-12.4) fL Immature Gran % (Auto) 0.2 (0.0-0.4) % Neut % (Auto) 50.5 (45-73) % Lymph % (Auto) 32.2 (20-40) % [place] % (Auto) 13.8 H (2-11) % Eos % (Auto) 2.7 (0-4) % Baso % (Auto) 0.6 (0-2) % Lymph # (Auto) 1.7 (1.2-4.9) X10*3/uL [place] # (Auto) 0.7 (0.1-1.2) X10*3/uL Eos # (Auto) 0.1 (0.0-0.4) X10*3/uL Baso # (Auto) 0.0 (0.0-0.2) X10*3/uL Abs Immat Gran (auto) 0.01 (0.00-0.03) X10*3/uL Absolute Neuts (auto) 2.6 (2.0-8.3) x10*3/uL Absolute Nucleated RBC 0.000 (0.0-0.012) X10*3/uL Nucleated RBC % (auto) 0.0 (0.0-0.2) /100WBC Sodium 140 (135-145) mmol/L Potassium 4.1 (3.3-5.1) mmol/L Chloride 110 H (96-108) mmol/L Carbon Dioxide 25 (22-29) mmol/L Anion Gap 9 L (12-20) BUN 13 (9-16) mg/dL Creatinine 0.94 (0.5-1.4) mg/dL Estim Creat Clear Calc 153.8 Estimated GFR > 60 Random Glucose 93 (60-115) mg/dL Calcium 9.1 (8.4-10.2) mg/dL Magnesium 2.1 (1.6-2.6) mg/dL Total Bilirubin 0.5 (0.0-1.0) mg/dL Direct Bilirubin 0.2 (0.0-0.5) mg/dL AST 48 H (5-37) U/L ALT 51 H (0-40) U/L Alkaline Phosphatase 54 (39-117) U/L B-Natriuretic Peptide < 10 (<100) pg/mL Total Protein 6.8 (6.5-8.0) g/dL Albumin 3.8 (3.5-5.0) g/dL Discharge Plan Discharge Clinical Impression: Pedal edema Patient Disposition: Home, Self-Care Instructions: Leg Edema (ED) Additional Instructions: Your ultrasound is negative for any blood clots. The your blood work is also reassuring. your chest x-ray is negative. Continue taking Lasix 20 mg for the next 10 days Elevate her legs. Wear compression stockings. You need to follow-up with her primary care doctor. If symptoms persist or worsen, pain becomes unbearable, if shortness of breath or fever please return to the ED Prescriptions: New furosemide [Lasix] 20 mg tablet 10 mg PO QAM Qty: 10 0RF No Action albuterol sulfate 2.5 mg /3 mL (0.083 %) solution for nebulization 2.5 mg inhalation Q4-6H PRN (Reason: shortness of breath or wheezing) Qty: 180 0RF albuterol sulfate 90 mcg/actuation HFA aerosol inhaler 2 puff inhalation Q4-6H PRN (Reason: shortness of breath or wheezing) Qty: 8.5 7RF cholecalciferol (vitamin D3) 25 mcg (1,000 unit) tablet 25 mcg PO DAILY Qty: 90 8RF nicotine 21 mg/24 hr patch 24 hour 1 patch transdermal DAILY Qty: 28 0RF B Complex Plus Vitamin C 98-15-30-5-300 mg capsule 1 cap PO DAILY Qty: 60 8RF Rx Instructions: give with food (meal/snack) montelukast [Singulair] 10 mg tablet 10 mg PO BEDTIME Qty: 30 8RF naltrexone 50 mg tablet 50 mg PO DAILY Qty: 30 8RF thiamine HCl (vitamin B1) 100 mg tablet 100 mg PO DAILY Qty: 90 8RF Referrals: Joshua Martínez MD [Primary Care Provider] - 3 days
[2021-06-08 11:52] LABS: MANUAL DIFF FLAG NO
[2021-06-08 11:57] LABS: Basophils Percent Auto 0.6 % (0-2); Eosinophils Absolute Auto 0.1 X10*3/uL (0.0-0.4); Eosinophils Percent Auto 2.7 % (0-4); Hematocrit 40.9 % (42.0-52.0); Hemoglobin 13.6 g/dl (14.0-18.0); Imm Gran Abs Auto 0.01 X10*3/uL (0.00-0.03); Imm Gran Pct Auto 0.2 % (0.0-0.4); Lymphocytes Absolute Auto 1.7 X10*3/uL (1.2-4.9); Lymphocytes Percent Auto 32.2 % (20-40); Mean Corpuscular HGB Conc 33.3 g/dl (31.0-36.0); Mean Corpuscular Hemoglobin 27.5 pg (27.0-33.0); Mean Corpuscular Volume 82.6 fL (80.0-98.0); Mean Platelet Volume 9.4 fL (9.4-12.4); Monocytes Absolute Auto 0.7 X10*3/uL (0.1-1.2); Monocytes Percent Auto 13.8 % (2-11); Neutrophils Absolute Auto 2.6 x10*3/uL (2.0-8.3); Neutrophils Percent Auto 50.5 % (45-73); Platelet Count 323 X10*3/uL (160-400); Red Blood Count 4.95 X10*6/uL (4.60-5.80); Red Cell Distribution Width 14.2 % (11.0-16.0); White Blood Count 5.1 X10*3/uL (4.8-10.8)
[2021-06-08 12:12] LABS: B Type Natriuretic Peptide < 10 pg/mL (<100)
[2021-06-08 12:27] LABS: Alanine Aminotransferase 51 U/L (0-40); Albumin Level 3.8 g/dL (3.5-5.0); Alkaline Phosphatase 54 U/L (39-117); Anion Gap 9 (12-20); Aspartate Amino Transferase 48 U/L (5-37); Bilirubin Direct 0.2 mg/dL (0.0-0.5); Bilirubin Total 0.5 mg/dL (0.0-1.0); Blood Urea Nitrogen 13 mg/dL (9-16); Calcium 9.1 mg/dL (8.4-10.2); Carbon Dioxide 25 mmol/L (22-29); Chloride 110 mmol/L (96-108); Creatinine Clr Calc Pharmacy 153.8; Estimated Glomerular Filt Rate > 60; Glucose Random 93 mg/dL (60-115); Magnesium 2.1 mg/dL (1.6-2.6); Potassium 4.1 mmol/L (3.3-5.1); Sodium 140 mmol/L (135-145); Total Protein 6.8 g/dL (6.5-8.0)
== END 2021-06-08 14:30 | disposition home or self-care (01) ==
PROVIDERS: Physician Assistant; Emergency Provider Emergency Medicine; PCP Internal Medicine
DX: R60.0 Localized edema (principal); M79.605 Pain in left leg; M79.604 Pain in right leg; J45.909 Unspecified asthma, uncomplicated
CPT/HCPCS: 36415; 71045; 80048; 80076; 83735; 83880; 85025; 93970; 99284

== ENCOUNTER → 2021-08-05 10:24 | Outpatient (BNVA) | payer MEDICARE, MEDICAID, SELFPAY | PROVIDERS: PCP Internal Medicine; Visit Provider Nurse Practitioner | DX: K59.09 Other constipation (principal) | CPT/HCPCS: 99202 ==

== ENCOUNTER 2021-08-25 15:03 | Emergency (ER) | payer MEDICARE, MEDICAID, SELFPAY ==
--- NOTE | ~2021-08-25 | XR_ITS ---
EXAMINATION: XR CHEST CLINICAL INFORMATION: Cough. Chest pain. COMPARISON: Chest x-ray 06/08/2021 TECHNIQUE: 2 views of the chest were obtained. FINDINGS: No significant abnormality is noted involving the heart, lungs, mediastinum, bony thorax or soft tissues. XR/XR chest 2V IMPRESSION: Unremarkable examination.
[2021-08-25 15:11] VITALS: BP 134/74; PULSE 97; O2SAT 97
[2021-08-25 16:07] VITALS: BP 122/82; PULSE 103; RESP 18; TEMP 36.4; O2SAT 96; BMI 39.1
--- NOTE | 2021-08-25 16:11 | ECG_ITS ---
Test Reason : chest pain Blood Pressure : / mmHG Vent. Rate : 097 BPM Atrial Rate : 097 BPM P-R Int : 136 ms QRS Dur : 082 ms QT Int : 356 ms P-R-T Axes : 030 -18 016 degrees QTc Int : 452 ms Normal sinus rhythm Normal ECG When compared with ECG of 17-APR-2020 20:03, No significant change was found Referred By: Generic ED Physician Electronically Signed By:GIO TRIPATHI MD
--- NOTE | 2021-08-25 16:24 | PC.NURSE ---
pt now stating he has SI. no plan but racing thoughts and anxiety
[2021-08-25 16:30] LABS: MANUAL DIFF FLAG NO
[2021-08-25 16:32] LABS: Basophils Percent Auto 0.6 % (0-2); Eosinophils Absolute Auto 0.1 X10*3/uL (0.0-0.4); Eosinophils Percent Auto 2.7 % (0-4); Hematocrit 43.3 % (42.0-52.0); Hemoglobin 14.2 g/dl (14.0-18.0); Imm Gran Abs Auto 0.02 X10*3/uL (0.00-0.03); Imm Gran Pct Auto 0.4 % (0.0-0.4); Lymphocytes Absolute Auto 1.8 X10*3/uL (1.2-4.9); Lymphocytes Percent Auto 38.3 % (20-40); Mean Corpuscular HGB Conc 32.8 g/dl (31.0-36.0); Mean Corpuscular Volume 82.5 fL (80.0-98.0); Monocytes Absolute Auto 0.5 X10*3/uL (0.1-1.2); Monocytes Percent Auto 9.6 % (2-11); Neutrophils Absolute Auto 2.3 x10*3/uL (2.0-8.3); Neutrophils Percent Auto 48.4 % (45-73); Platelet Count 277 X10*3/uL (160-400); Red Blood Count 5.25 X10*6/uL (4.60-5.80); Red Cell Distribution Width 14.2 % (11.0-16.0); White Blood Count 4.8 X10*3/uL (4.8-10.8)
[2021-08-25 16:46] LABS: COVID-19 Test Negative (Negative); IDNOW Serial# 08D9AD1C
[2021-08-25 16:48] LABS: Alanine Aminotransferase 47 U/L (0-40); Albumin Level 3.9 g/dL (3.5-5.0); Alkaline Phosphatase 60 U/L (39-117); Anion Gap 12 (12-20); Aspartate Amino Transferase 36 U/L (5-37); Bilirubin Total 0.3 mg/dL (0.0-1.0); Blood Urea Nitrogen 10 mg/dL (9-16); Calcium 8.2 mg/dL (8.4-10.2); Carbon Dioxide 23 mmol/L (22-29); Chloride 111 mmol/L (96-108); Creatinine Clr Calc Pharmacy 185.3; Estimated Glomerular Filt Rate > 60; Ethanol 126 mg/dL; Glucose Random 87 mg/dL (60-115); Potassium 4.4 mmol/L (3.3-5.1); Sodium 142 mmol/L (135-145); Total Protein 7.1 g/dL (6.5-8.0)
[2021-08-25 16:53] LABS: Troponin-I High Sensitivity < 3.5 ng/L (<3.5-35.0)
[2021-08-25] MEDS: Acetaminophen 325 MG TABLET 650 MG PO (17:48)
--- NOTE | 2021-08-25 21:26 | ED.CHESTPAIN ---
HPI - Chest Pain General Chief Complaint: Chest Pain Stated Complaint: WEAKNESS,ETOH INTOXX PER EMS Time Seen by Provider: 08/25/21 16:26 Source: patient Mode of arrival: EMS History of Present Illness HPI narrative: 35-year-old male with history of asthma and alcohol dependence as well as smoking and chronic lymphedema presents via EMS where he was found on a park bench with the smell of alcohol complaining of a cough without fevers or chills. Related Data Previous Rx's Medication Instructions Recorded thiamine HCl (vitamin B1) 100 mg 100 mg PO DAILY #90 tabs 03/22/21 tablet vitamin B comp and C no.3 15 mg-10 1 cap PO DAILY #60 caps 05/26/21 mg-50 mg-5 mg-300 mg capsule (B Complex Plus Vitamin C) cholecalciferol (vitamin D3) 25 25 mcg PO DAILY #90 tabs 06/07/21 mcg (1,000 unit) tablet albuterol sulfate 2.5 mg (3 mL) inhalation Q4-6H PRN 06/11/21 shortness of breath or wheezing #180 mL albuterol sulfate 90 mcg/actuation 2 puff inhalation Q4-6H PRN 06/11/21 aerosol inhaler shortness of breath or wheezing #8.5 grams furosemide 40 mg tablet 40 mg PO QAM #15 tabs 08/05/21 linaclotide 72 mcg capsule 72 mcg PO QAM #30 caps 08/05/21 (Linzess) nicotine 21 mg/24 hr daily 1 patch transdermal DAILY #28 ea 08/05/21 transdermal patch prednisone 50 mg tablet 50 mg PO DAILY 4 days #4 tabs 08/25/21 Allergies Allergy/AdvReac Type Severity Reaction Status Date / Time pineapple Allergy Itching Verified 08/25/21 16:07 Review of Systems Review of Systems: Pertinent positives and negatives as stated in HPI 10 point review of systems is otherwise negative. [facility] Past Medical History Source: nursing notes reviewed Medical History ADHD Alcoholism Asthma Bipolar disorder Elevated LFTs Obesity Obesity (BMI 30-39.9) Pure hypercholesterolemia Smoker Vitamin D deficiency Surgical History No significant past surgical history Family History Family History Mother No problems noted. Father No problems noted. Social History Social History Housing: Apartment Alcohol intake: current Alcohol intake frequency: holidays/special occasions only Patient Tobacco Use Status: Current everyday Tobacco user Tobacco use type: Cigarette Cigarettes Per Day: 5 e-Cigarette/Vaping Use: Never Used Second Hand Smoke Exposure: No Advance Directives: No Advance Directives Information Provided: No service: No Current occupational status: disabled Cognitive needs: No Hearing needs: No Vision needs: No Physical Exam Vital Signs: Vital Signs: Last Vital Signs Temp 97.5 F 08/25/21 16:07 Pulse 103 H 08/25/21 16:07 Resp 18 08/25/21 16:07 BP 122/82 08/25/21 16:07 Pulse Ox 96 08/25/21 16:07 O2 Del Method 08/25/21 16:07 BMI result Body Mass Index 39.1 VITAL SIGNS: Reviewed. GENERAL: Well developed, well nourished, in no acute distress. HEAD: Normocephalic/atraumatic EYES: PERRLA, EOMI, conjunctival injection EARS: Ext canals without abnormality, TMs non-bulging and non-erythematous NOSE: Nares patent bilateral OROPHARYNX: no oral lesions noted, posterior pharynx clear and non-erythematous without noted tonsillar enlargement/erythema/exudates NECK: Supple, no adenopathy LUNGS: Good inspiratory effort with minimal expiratory wheeze, no retractions or tachypnea. SpO2<96> CARDIOVASCULAR: Regular rate and rhythm without noted murmurs, no JVD but bilateral lower extremity nonpitting edema baseline ABDOMEN: Soft, non-tender, non-distended with bowel sounds. MUSCULOSKELETAL: No tenderness, deformities, or effusions noted on gross inspection. EXTREMITIES: No cyanosis, clubbing or edema. SKIN: Inspection of the skin reveals no rashes NEUROLOGIC: Sleepy but arousable and oriented x 4. Strength and sensation to light touch were grossly intact x 4. Course Course Course Narrative: 35-year-old male with history and clinical presentation consistent with alcohol intoxication and possible mild asthma exacerbation with trace expiratory wheeze but no tachypnea and patient appears to be oxygenating well on room air. On review of all investigations there are no acute findings other than alcohol intoxication. Patient is COVID-19 was negative. Patient received a Ventolin inhaler as well as initial prednisone and will be discharged with remaining course of steroids. He is otherwise stable for discharge. MDM - Chest Pain Lab Data Result diagrams: 08/25/21 16:24 08/25/21 16:24 Labs: Lab Results 08/25/21 08/25/21 08/25/21 Range/Units 16:24 16:24 16:24 WBC 4.8 (4.8-10.8) X10*3/uL RBC 5.25 (4.60-5.80) X10*6/uL Hgb 14.2 (14.0-18.0) g/dl Hct 43.3 (42.0-52.0) % MCV 82.5 (80.0-98.0) fL MCH 27.0 (27.0-33.0) pg MCHC 32.8 (31.0-36.0) g/dl RDW 14.2 (11.0-16.0) % Plt Count 277 (160-400) X10*3/uL MPV 9.0 L (9.4-12.4) fL Immature Gran % (Auto) 0.4 (0.0-0.4) % Neut % (Auto) 48.4 (45-73) % Lymph % (Auto) 38.3 (20-40) % [place] % (Auto) 9.6 (2-11) % Eos % (Auto) 2.7 (0-4) % Baso % (Auto) 0.6 (0-2) % Lymph # (Auto) 1.8 (1.2-4.9) X10*3/uL [place] # (Auto) 0.5 (0.1-1.2) X10*3/uL Eos # (Auto) 0.1 (0.0-0.4) X10*3/uL Baso # (Auto) 0.0 (0.0-0.2) X10*3/uL Abs Immat Gran (auto) 0.02 (0.00-0.03) X10*3/uL Absolute Neuts (auto) 2.3 (2.0-8.3) x10*3/uL Absolute Nucleated RBC 0.000 (0.0-0.012) X10*3/uL Nucleated RBC % (auto) 0.0 (0.0-0.2) /100WBC Sodium 142 (135-145) mmol/L Potassium 4.4 (3.3-5.1) mmol/L Chloride 111 H (96-108) mmol/L Carbon Dioxide 23 (22-29) mmol/L Anion Gap 12 (12-20) BUN 10 (9-16) mg/dL Creatinine 0.77 (0.5-1.4) mg/dL Estim Creat Clear Calc 185.3 Estimated GFR > 60 Random Glucose 87 (60-115) mg/dL Calcium 8.2 L D (8.4-10.2) mg/dL Total Bilirubin 0.3 (0.0-1.0) mg/dL AST 36 (5-37) U/L ALT 47 H (0-40) U/L Alkaline Phosphatase 60 (39-117) U/L Troponin I High Sens < 3.5 (<3.5-35.0) ng/L B-Natriuretic Peptide (<100) pg/mL Total Protein 7.1 (6.5-8.0) g/dL Albumin 3.9 (3.5-5.0) g/dL Ethyl Alcohol 126 mg/dL COVID-19 ([facility]LEEN) (Negative) COVID-19 Clin Com 08/25/21 08/25/21 Range/Units 16:24 22:08 WBC (4.8-10.8) X10*3/uL RBC (4.60-5.80) X10*6/uL Hgb (14.0-18.0) g/dl Hct (42.0-52.0) % MCV (80.0-98.0) fL MCH (27.0-33.0) pg MCHC (31.0-36.0) g/dl RDW (11.0-16.0) % Plt Count (160-400) X10*3/uL MPV (9.4-12.4) fL Immature Gran % (Auto) (0.0-0.4) % Neut % (Auto) (45-73) % Lymph % (Auto) (20-40) % [place] % (Auto) (2-11) % Eos % (Auto) (0-4) % Baso % (Auto) (0-2) % Lymph # (Auto) (1.2-4.9) X10*3/uL [place] # (Auto) (0.1-1.2) X10*3/uL Eos # (Auto) (0.0-0.4) X10*3/uL Baso # (Auto) (0.0-0.2) X10*3/uL Abs Immat Gran (auto) (0.00-0.03) X10*3/uL Absolute Neuts (auto) (2.0-8.3) x10*3/uL Absolute Nucleated RBC (0.0-0.012) X10*3/uL Nucleated RBC % (auto) (0.0-0.2) /100WBC Sodium (135-145) mmol/L Potassium (3.3-5.1) mmol/L Chloride (96-108) mmol/L Carbon Dioxide (22-29) mmol/L Anion Gap (12-20) BUN (9-16) mg/dL Creatinine (0.5-1.4) mg/dL Estim Creat Clear Calc Estimated GFR Random Glucose (60-115) mg/dL Calcium (8.4-10.2) mg/dL Total Bilirubin (0.0-1.0) mg/dL AST (5-37) U/L ALT (0-40) U/L Alkaline Phosphatase (39-117) U/L Troponin I High Sens (<3.5-35.0) ng/L B-Natriuretic Peptide 20 (<100) pg/mL Total Protein (6.5-8.0) g/dL Albumin (3.5-5.0) g/dL Ethyl Alcohol mg/dL COVID-19 ([facility]LEEN) Negative (Negative) COVID-19 Clin Com See Note ECG Data ECG #1: Attestation: I personally reviewed and interpreted this ECG as follows: Prior ECG tracings: available for review Interpretation: NSR, HR-97, no STEMI, NM/QRS/QTC are within normal limits. Discharge Plan Discharge Clinical Impression: Alcohol intoxication, Bipolar disorder, Lymphedema, Asthma Patient Disposition: Home, Self-Care Instructions: Asthma (ED), Bipolar Disorder (ED), Alcohol Intoxication (ED), Lymphedema (ED), Alcohol Use Disorder (ED) Additional Instructions: 1. Resume your home medications as prescribed. 2. Follow-up with your primary care provider by calling the office in the morning. Return to the ER for worsening symptoms. Prescriptions: New prednisone 50 mg tablet 50 mg PO DAILY 4 Days Qty: 4 0RF No Action cholecalciferol (vitamin D3) 25 mcg (1,000 unit) tablet 25 mcg PO DAILY Qty: 90 8RF furosemide 40 mg tablet 40 mg PO QAM Qty: 15 3RF nicotine 21 mg/24 hr patch 24 hour 1 patch transdermal DAILY Qty: 28 3RF B Complex Plus Vitamin C 41-38-81-5-300 mg capsule 1 cap PO DAILY Qty: 60 8RF Rx Instructions: give with food (meal/snack) albuterol sulfate 2.5 mg /3 mL (0.083 %) solution for nebulization 2.5 mg inhalation Q4-6H PRN (Reason: shortness of breath or wheezing) Qty: 180 0RF albuterol sulfate 90 mcg/actuation HFA aerosol inhaler 2 puff inhalation Q4-6H PRN (Reason: shortness of breath or wheezing) Qty: 8.5 7RF thiamine HCl (vitamin B1) 100 mg tablet 100 mg PO DAILY Qty: 90 8RF Linzess 72 mcg capsule 72 mcg PO QAM Qty: 30 6RF
[2021-08-25] MEDS: predniSONE 10 MG TABLET 50 MG PO (22:15)
[2021-08-25] MEDS: Albuterol Sulfate 90 MCG 8 GM INHALER 4 PUFF INHALE (22:15)
--- NOTE | 2021-08-25 22:49 | PC.NURSE ---
administered medications per MAR
[2021-08-25 22:53] LABS: B Type Natriuretic Peptide 20 pg/mL (<100)
== END 2021-08-25 23:25 | disposition home or self-care (01) ==
PROVIDERS: Emergency Provider Student in an Organized Health Care Education/Training Program
DX: F10.220 Alcohol dependence with intoxication, uncomplicated (principal); Y90.6 Blood alcohol level of 120-199 mg/100 ml; F31.9 Bipolar disorder, unspecified; I89.0 Lymphedema, not elsewhere classified; J45.909 Unspecified asthma, uncomplicated; E78.00 Pure hypercholesterolemia, unspecified; F17.210 Nicotine dependence, cigarettes, uncomplicated; E66.9 Obesity, unspecified; Z68.39 Body mass index [BMI] 39.0-39.9, adult; Z20.822 Contact with and (suspected) exposure to COVID-19; Z79.899 Other long term (current) drug therapy
CPT/HCPCS: 36415; 71046; 80053; 82077; 83880; 84484; 85025; 87635; 93005; 99283; 99284

== ENCOUNTER → 2021-09-09 15:07 | Outpatient (BNVA) | payer MEDICARE, MEDICAID, SELFPAY | PROVIDERS: PCP Internal Medicine; Visit Provider Dietitian, Registered | DX: E66.9 Obesity, unspecified (principal) | CPT/HCPCS: 97802 ==

== ENCOUNTER → 2022-01-12 09:54 | Outpatient (REF) | payer OTHER, SELFPAY ==
--- NOTE | 2022-01-12 10:11 | CA_ITS ---
Acquisition Time: 2022-01-12 10:03:42 Total Exercise Time: 00:06:35 Test Indications: CP Medications: SEE CHART Protocol: JOVANA Max HR: 171 BPM 91% of Pred: 186 BPM Max BP: 140/058 mmHG Max Work Load: 7.9 METS Exercise stress test with exercise 6 min 35 sec of Jovana protocol, achieving 91% MPHR, 7.9 METs, with fatigue and request to stop, without anginal symptoms, with isolated PVC, with normotensive response to exercise, without EKG changes meeting criteria for ischemia, with T wave inversions lead III and V6, slight V5 at baseline and throughtout test and recovery. In later recovery there is T wave inversion in asVF as well. He did have prolonged sinus tachycardia in recovery which gradually improved with relaxation and laying in supine position. Test reviewed with Dr Londono. Referred By: Livan Rosales Overread By: DOYLE GOMEZ
== END ==
LOC: HO.CARD 09:54
PROVIDERS: PCP Internal Medicine; Visit Provider Internal Medicine
DX: R07.9 Chest pain, unspecified (principal)
CPT/HCPCS: 93017

== ENCOUNTER 2022-05-05 12:50 | Outpatient (REF) | payer OTHER, SELFPAY ==
--- NOTE | ~2022-05-05 | XR_ITS ---
EXAMINATION: XR lumbar spine 2-3V CLINICAL INFORMATION: Reason for Exam M54.50 - Low back pain, unspecified COMPARISON: None TECHNIQUE: 3 views of the lumbar spine FINDINGS: 5 nonrib-bearing lumbar-type vertebral bodies. Vertebral body heights are maintained. Alignment is maintained. Disc space heights are maintained. Paravertebral soft tissues are unremarkable. XR/XR lumbar spine 2-3V IMPRESSION: Unremarkable examination.
--- NOTE | ~2022-05-05 | XR_ITS ---
EXAMINATION: XR chest 2V CLINICAL INFORMATION: Reason for Exam R60.9 - Edema, unspecified COMPARISON: Chest radiograph 08/25/2021 TECHNIQUE: 2 views of the chest FINDINGS: Clear lungs. No pneumothorax or pleural effusion. Unchanged cardiomediastinal silhouette. XR/XR chest 2V Impression: No acute cardiopulmonary findings.
[2022-05-05 13:05] LABS: MANUAL DIFF FLAG NO
[2022-05-05 14:08] LABS: Basophils Percent Auto 0.8 % (0-2); Eosinophils Absolute Auto 0.1 X10*3/uL (0.0-0.4); Eosinophils Percent Auto 1.3 % (0-4); Hemoglobin 15.1 g/dl (14.0-18.0); Imm Gran Abs Auto 0.01 X10*3/uL (0.00-0.03); Imm Gran Pct Auto 0.2 % (0.0-0.4); Lymphocytes Absolute Auto 2.1 X10*3/uL (1.2-4.9); Lymphocytes Percent Auto 40.9 % (20-40); Mean Corpuscular HGB Conc 32.1 g/dl (31.0-36.0); Mean Corpuscular Hemoglobin 26.6 pg (27.0-33.0); Mean Corpuscular Volume 82.7 fL (80.0-98.0); Monocytes Absolute Auto 0.4 X10*3/uL (0.1-1.2); Monocytes Percent Auto 8.3 % (2-11); Neutrophils Absolute Auto 2.5 x10*3/uL (2.0-8.3); Neutrophils Percent Auto 48.5 % (45-73); Platelet Count 311 X10*3/uL (160-400); Red Blood Count 5.68 X10*6/uL (4.60-5.80); Red Cell Distribution Width 14.2 % (11.0-16.0); White Blood Count 5.2 X10*3/uL (4.8-10.8)
[2022-05-05 14:09] LABS: Appearance Urine Clear; Color Urine Yellow; Glucose Urine UA Negative (Negative); Leukocyte Esterase Urine Negative (Negative); Nitrite Urine Negative (Negative); PH 7.5 (5.0-9.0); Specific Gravity - Urine 1.015 (1.005-1.025); Urine Blood Negative (Negative); Urine Ketones Negative (Negative); Urine Protein Negative (Neg-Trace)
[2022-05-05 14:30] LABS: B Type Natriuretic Peptide < 10 pg/mL (<100)
[2022-05-05 14:32] LABS: Anion Gap 17 (12-20); Blood Urea Nitrogen 14 mg/dL (9-16); Calcium 9.4 mg/dL (8.4-10.2); Carbon Dioxide 24 mmol/L (22-29); Chloride 105 mmol/L (96-108); Estimated Glomerular Filt Rate > 60; Glucose Random 83 mg/dL (60-115); Potassium 4.3 mmol/L (3.3-5.1); Sodium 142 mmol/L (135-145)
[2022-05-05 14:49] LABS: Alanine Aminotransferase 51 U/L (0-40); Albumin Level 4.2 g/dL (3.5-5.0); Alkaline Phosphatase 60 U/L (39-117); Anion Gap 14 (12-20); Aspartate Amino Transferase 39 U/L (5-37); Bilirubin Total 0.5 mg/dL (0.0-1.0); Blood Urea Nitrogen 14 mg/dL (9-16); Calcium 9.4 mg/dL (8.4-10.2); Carbon Dioxide 26 mmol/L (22-29); Chloride 105 mmol/L (96-108); Cholesterol 224 mg/dL; Estimated Glomerular Filt Rate > 60; Glucose Fasting 84 mg/dL (60-99); HDL Cholesterol 64 mg/dL; LDL Cholesterol Calculated 149 mg/dl; Potassium 4.4 mmol/L (3.3-5.1); Sodium 141 mmol/L (135-145); Total Protein 7.3 g/dL (6.5-8.0); Triglycerides 55 mg/dL
[2022-05-05 14:51] LABS: TSH reflex Free T4 1.41 uIU/mL (0.32-4.0); Vitamin D 25-OH Total 25.2 ng/mL (>30)
[2022-05-05 14:54] LABS: Thyroid Stimulating Hormone 1.36 uIU/mL (0.32-4.0)
[2022-05-05 15:09] LABS: Lithium < 0.10 mmol/L (0.60-1.20)
[2022-05-11 06:08] LABS: Vitamin B1 39 nmol/L (8-30)
[2022-05-11 15:13] LABS: Vitamin B6 95.2 ng/mL (2.1-21.7)
== END 2022-05-05 12:51 | disposition home or self-care (01) ==
LOC: HO.XRAY 12:50
PROVIDERS: Clinical Nurse Specialist Psychiatric/Mental Health, Adult; PCP Internal Medicine; Visit Provider Internal Medicine
DX: R60.9 Edema, unspecified (principal); E78.00 Pure hypercholesterolemia, unspecified; R06.00 Dyspnea, unspecified; F10.20 Alcohol dependence, uncomplicated; R30.0 Dysuria; E55.9 Vitamin D deficiency, unspecified; M54.50 Low back pain, unspecified; Z79.899 Other long term (current) drug therapy
CPT/HCPCS: 36415; 71046; 72100; 80048; 80053; 80061; 80178; 81003; 82306; 83880; 84207; 84425; 84443; 85025

== ENCOUNTER → 2022-06-01 09:08 | Outpatient (REF) | payer OTHER, SELFPAY ==
--- NOTE | 2022-06-01 | CA_ITS ---
Transthoracic Echocardiogram Patient (Last, First, Middle): Danielle Villar H Gender: Male Date of : 1985 Age: 36 Procedure Date: 06/01/2022 Procedure Type: Transthoracic Echocardiogram Location: OP Height: 180.34 cm Weight: 142.88 kg BSA: 2.56 m2 Heart Rate: bpm BP: 120 / 70 mmHg Crop Specialist: TO Referring MD: Livan Rosales MD Symptoms: R06.09 - Other forms of dyspnea Study Quality: Fair/exam terminated by patient ECG Rhythm: Sinus Conclusions: - The left ventricular systolic function is normal. The visually estimated ejection fraction is between 65-70%. - Mild to moderate septal hypertrophy, but difficult to assess. - Small intraventricular/LVOT gradient. - No obvious valvular pathology seen on this study. - Patient could not tolerate examination and terminated it. Anxious. Findings Procedure Information The study quality is limited by the patients inability to tolerate the test. Left Ventricle Normal left ventricular cavity size. The left ventricular systolic function is normal. The visually estimated ejection fraction is between 65-70%. There is no evidence of regional wall motion abnormalities. Diastolic function is normal for age. Mild to moderate septal hypertrophy, but difficult to assess. Small intraventricular/LVOT gradient. No significant change with valsalva. Right Ventricle Normal right ventricular cavity size. Atria Both atria are normal in size. Aortic Valve There is a normal trileaflet aortic valve. There is no aortic valve stenosis. There is no aortic valve regurgitation. Mitral Valve The mitral valve appears normal. There is no mitral valve regurgitation. There is no mitral valve stenosis. Pulmonic Valve The pulmonic valve is likely normal. Tricuspid Valve There is no tricuspid valve regurgitation. Tricuspid regurgitation envelope is inadequate for calculation of right ventricular systolic pressure. Great Vessels The asc aorta is normal in size. Venous The inferior vena cava was not well visualized. Pericardium/Pleural There is no evidence of pericardial effusion. Prior Study Comparison No prior study available for comparison. Recommendations, Care & Conclusions No obvious valvular pathology seen on this study. Measurements 2D Linear Measurements IVSd: 1.71 0.6-0.9/0.6-1.0 cm LVIDd: 4.26 3.9-5.3/4.2-5.9 cm LVIDd Index: 1.66 2.4-3.2/2.2-3.1 cm/m2 LVIDs: 2.09 2.0-3.6 cm LVPWd: 1.15 0.7-1.1 cm LA Diam: 2.80 2.7-3.8/3.0-4.0 cm LAIDs Index: 1.09 1.5-2.3 cm/m2 LV Mass: 294.98 67-162/88-224 g LV Mass Index: 115.23 43-95/49-115 g/m2 LVOT Diam: 2.20 3.0+(-)1.3 cm Mitral Valve MV Pk E: 0.57 MV PK A: 0.47 MV Decel Time: 229.00 E/A: 1.20 E'Lateral: 10.30 E'Medial: 8.38 E/E' Med: 6.80 E/E' Lat: 5.60 PHT: 67.00 MVA PHT: 3.28 Decel Casey: 2.51 LVOT LVOT Pk Eric: 1.27 LVOT Mn Eric: 0.78 LVOT VTI: 0.20 LVOT Pk Grad: 6.00 LVOT Mn Grad: 3.00 LVOT Diam: 2.20 LVOT Area: 3.80 Diastolic Function MV Pk E: 0.57 MV Pk A: 0.47 E/A: 1.20 E'Medial: 8.38 E/E' Med: 6.80 E' Laterial: 10.30 E/E' Lat: 5.60 Great Vessels Aorta Sinus of Valsalva: 3.39 2.0-3.5 cm Ao Asc: 3.10 2.1-3.4 cm Updated in Other Vendor System with Status of Final Adam Baker MD electronically signed on 06/03/2022 1:19:53 PM with status of Final
== END ==
LOC: HO.CARD 09:08
PROVIDERS: PCP Internal Medicine; Visit Provider Internal Medicine
DX: R06.09 Other forms of dyspnea (principal); R60.9 Edema, unspecified
CPT/HCPCS: 93306

== ENCOUNTER 2022-06-20 14:42 | Outpatient (REF) | payer OTHER, SELFPAY ==
--- NOTE | ~2022-06-20 | US_ITS ---
EXAMINATION: Noninvasive assessment of the bilateral lower extremities with ARTERIAL DUPLEX CLINICAL INFORMATION: Peripheral vascular disease with lower extremity claudication TECHNIQUE: Duplex Doppler techniques with waveform analysis and measurement of velocities in the bilateral common femoral, profunda femoris, superficial femoral, popliteal and tibial arteries were performed. COMPARISON: None FINDINGS: DIRECT DUPLEX DOPPLER FINDINGS: RIGHT LEG: Common femoral artery: 88.4 cm/s, phasicity: Triphasic Profunda femoris artery: 60.4 cm/s, phasicity: Triphasic Superficial femoral artery (proximal): 78.5 cm/s, phasicity: Triphasic Superficial femoral artery (mid): 72.4 cm/s, phasicity: Triphasic Superficial femoral artery (distal): 63.2 cm/s, phasicity: Triphasic Popliteal artery: 48.6 cm/s, phasicity: Triphasic Posterior tibial artery: 67.3 cm/s, phasicity: Triphasic Peroneal artery: 39.7 cm/s, phasicity: Triphasic LEFT LEG: Common femoral artery: 93.9 cm/s, phasicity: Triphasic Profunda femoris artery: 80.1 cm/s, phasicity: Triphasic Superficial femoral artery (proximal): 77.0 cm/s, phasicity: Triphasic Superficial femoral artery (mid): 77.7 cm/s, phasicity: Triphasic Superficial femoral artery (distal): 68.8 cm/s, phasicity: Triphasic Popliteal artery: 58.0 cm/s, phasicity: Triphasic Posterior tibial artery: 79.1 cm/s, phasicity: Triphasic Peroneal artery: 37.3 cm/s, phasicity: Triphasic US/US arterial duplex LE BI IMPRESSION: Right leg: Normal duplex arterial evaluation Left leg: Normal duplex arterial evaluation
== END 2022-06-20 14:43 | disposition home or self-care (01) ==
LOC: HO.US 14:42
PROVIDERS: Visit Provider Internal Medicine
DX: I73.9 Peripheral vascular disease, unspecified (principal); I89.0 Lymphedema, not elsewhere classified
CPT/HCPCS: 93925

== ENCOUNTER 2022-10-14 13:26 | Outpatient (AMB) | payer OTHER, SELFPAY ==
--- NOTE | 2022-10-14 13:27 | A.OFFPC_ITS ---
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 Processor Required: No Accompanied by: Self / Same As Patient Allergies pineapple Allergy (Verified 10/14/22 13:50) Itching Medication List - Last Reconciled 10/14/22 by Livan Rosales MD albuterol sulfate 90 mcg/actuation 2 puffs inhalation Q4-6H PRN albuterol sulfate 2.5 mg (3 mL) inhalation Q4-6H PRN bumetanide 2 mg PO DAILY PRN 30 days cholecalciferol (vitamin D3) 25 mcg PO DAILY 90 days dextroamphetamine-amphetamine 30 mg ER (Adderall XR) 30 mg PO QAM dextroamphetamine-amphetamine 5 mg ER (Adderall XR) 5 mg PO QAM linaclotide (Linzess) 72 mcg PO QAM nicotine 1 patch transdermal DAILY 28 days thiamine HCl (vitamin B1) 100 mg PO DAILY 90 days tizanidine 4 mg PO Q8H PRN 30 days vitamin B comp and C no.3 (B Complex Plus Vitamin C) 1 cap PO DAILY 90 days zolpidem 5 mg PO BEDTIME Tobacco use date assessed: 10/14/22 Dental Screening Dental Screen Date: 10/14/22 Did you have a dental visit in the last 12 months?: Yes Did you have a dental problem in the last 6 months where you did not have access to dental care?: No Was dental information given to patient?: Patient has dentist HPI Back Pain HPI Details Patient comes in today for his follow up visit Has gained about 20 pounds again since his last visit States that he eats pretty much the same thing everyday and has not changed much with his diet and daily activities and does not know why he has gained so much weight States that he stopped taking his Aripiprazole injections and also stopped taking his Tecolote as he was concerned that those were contributing to his weight gain - notes that his psychiatrist agreed to him coming off his above meds and states that he is now being prescribed Adderall XR 35 mg total daily dose (30 mg + 5 mg) as well as Zolpidem 5 mg Q HS for sleep and is not taking anything else for his mood or depression Relates increased pain again over his lower back lately (lumbar spine x-rays done in April 2022 came out completely normal) Adds that his stomach often feels bloated and he has a hard time walking or moving around and even bending over - feels that his stomach gets in the way and his stomach now has gotten so big it is interfering with his mobility He denies any nausea/vomiting, abdominal pain or heartburns; states that his bowel movements are normal/regular He denies any headaches or dizziness Denies any chest pains but notes (+) ARMENTA since his weight gain Has also noticed some sweling and tightness over his feet and lower legs lately [facility]LY [facility], [facility] Medical History Alcoholism Asthma Elevated LFTs Morbid obesity with BMI of 40.0-44.9, adult Pure hypercholesterolemia Schizoaffective disorder, bipolar type Smoker Vitamin D deficiency Surgical History No significant past surgical history Family History Mother No problems noted. Father No problems noted. Social History Housing: Apartment Alcohol intake: current Alcohol intake frequency: holidays/special occasions only Patient Tobacco Use Status: Current everyday Tobacco user Tobacco use type: Cigarette Cigarettes Per Day: 5 e-Cigarette/Vaping Use: Never Used Second Hand Smoke Exposure: No service: No Current occupational status: disabled Cognitive needs: No Hearing needs: No Vision needs: No Questionnaire PHQ-9 Over the last 2 weeks, how often have you been bothered by any of the following problems? 1. Little interest or pleasure in doing things: nearly every day 2. Feeling down, depressed, or hopeless: nearly every day 3. Trouble falling or staying asleep, or sleeping too much: nearly every day 4. Feeling tired or having little energy: nearly every day 5. Poor appetite or overeating: nearly every day 6. Feeling bad about yourself - or that you are a failure or have let yourself or your family down: nearly every day 7. Trouble concentrating on things, such as reading the newspaper or watching television: nearly every day 8. Moving or speaking so slowly that other people could have noticed. Or the opposite - being so fidgety or restless that you have been moving around a lot more than usual: not at all 9. Thoughts that you would be better off or of hurting yourself in some way: not at all Total score: 21 Depression Screening Interpretation: Positive Depression Screening Follow-up: Existing condition and In treatment 06903 - PHQ-9 Billing: Yes Source: Developed by Drs. Zay Lopez, Tonya Ornelas, Holger Bourgeois and colleagues, with an educational suellen from [employer]. Thrive Questionnaire Date Thrive assessed: 10/14/22 I am a: Patient What is your living situation today?: I have a steady place to live Within the past 12 months, did the food you bought not last and you didn't have the money to get more?: Never true Within the past 12 months, did you worry whether your food would run out before you got money to buy more?: Never true Do you have trouble paying for medicines?: No Do you have trouble getting transportation to medical appointments?: No Do you have trouble paying your heating and electricity bill?: No Do you have trouble taking care of your child, family member or friend?: No Do you have trouble with day-to-day activities such as bathing, preparing meals, shopping, managing finances, etc.?: No Are you currently unemployed and looking for a job?: No Are you interested in more education?: No Please select the resources that you would like help with: None Currently or been in a relationship where the following occur: no concerns reported AUDIT C Alcohol Use Questionnaire (AUDIT-C) 1. How often do you have a drink containing alcohol?: Never 3. How often do you have six or more drinks on one occasion?: Never Total Score: 0 Score Reviewed/Action Taken: Yes KITTY-7 AMB Questionnaire KITTY-7 Date KITTY - 7 assessed: 10/14/22 Feeling nervous, anxious, or on edge: 0 = Not at all Not being able to stop or control worryin = Not at all Worrying too much about different things: 0 = Not at all Trouble relaxin = Not at all Being so restless that it is hard to sit still: 0 = Not at all Becoming easily annoyed or irritable: 0 = Not at all Feeling afraid as if something awful might happen: 0 = Not at all Total KITTY-7 score (0-4 normal; 5-9 mild; 10-14 moderate; 15-21 severe): 0 Source: Developed by Drs. Zay Lopez, Tonya Ornelas, Holger Bourgeois and colleagues, with an educational suellen from [employer]. Review of Systems Const Reports difficulty sleeping (is now on Zolpidem 5 m Q HS), Reports fatigue, Denies fever(s), Denies headache(s) and Reports weight gain ENT Denies dysphagia, Denies dizziness, Denies otalgia, Denies headache(s), Denies neck pain, Denies odynophagia and Denies sore throat Card Denies chest pain, Reports pedal edema (on and off), Reports leg edema (on and off) and Reports dyspnea on exertion (mild) Resp Denies chest congestion, Denies cough, Reports dyspnea on exertion (mild) and Denies wheezing GI Denies abdominal pain, Reports bloating, Reports constipation (chronic - better with Rx), Denies dysphagia, Denies diarrhea, Denies nausea, Denies odynophagia and Denies vomiting Denies hematuria, Reports nocturia and Reports urinary frequency Musc Details: recurrent leg pain/cramps with walking Reports back pain and Denies neck pain Neuro Denies dizziness and Denies headache(s) Psych Reports anxiety, Denies depression and Denies irritability Endo Reports fatigue Aller/Immun Denies wheezing Physical exam (Primary Care) Vital Signs: Last Vital Signs Pulse 100 10/14/22 13:28 BP 138/76 10/14/22 13:28 Pulse Ox 96 10/14/22 13:28 Oxygen Delivery Method Room Air 10/14/22 13:28 BMI result Body Mass Index 45.3 Tobacco/Smoking Status: Tobacco use Status Tobacco use date assessed 10/14/22 10/14/22 13:34 Patient Tobacco Use Status Current everyday Tobacco 10/14/22 13:34 Tobacco use type Cigarette 10/14/22 13:34 e-Cigarette/Vaping Use Never Used 10/14/22 13:34 PHQ-9: PHQ-9 Score PHQ-9: Total score 21 10/14/22 14:13 Depression Screening Interpretation: Positive Depression Screening Follow-up: Existing condition and In treatment Thrive Assessment: Date of Thrive Assessment Date Thrive assessed 10/14/22 10/14/22 13:34 Currently or been in a relationship where the following occur: no concerns reported Const General: no acute distress and alert HENMT Ears: TM's normal bilaterally and EAC's normal Throat: Yes posterior oropharynx normal and Yes tonsils normal (no TP congestion) Neck Neck: Yes no lymphadenopathy and Yes supple Resp Auscultation: clear to auscultation bilaterally, no rales and no wheezes Cardio Rate: regular rate Rhythm: regular rhythm Heart sounds: no murmurs GI Inspection: Yes Abdominal wall edema and Yes distended (abdomen appears globularly enlarged and distended) Palpation (GI): Soft to palpation, nontender, no guarding and No Rebound tenderness present Auscultation: normal bowel sounds Back/Spine/Pelvis Thoracic/Lumbar Spine: paraspinal muscle tenderness bilaterally in the upper lumbar, in the mid lumbar and in the lower lumbar and lumbar spinal tenderness Skin Rashes: no rashes Extrem General: Yes edema (1+ edema over both lower extremities) Assessment and Plan Assessment & Plan (1) Edema: Code(s): R60.9 - Edema, unspecified Qualifiers: Edema type: generalized Qualified Code(s): R60.1 - Generalized edema Plan: Patient is again advised that his labs done back in April 2022 all came back normal - his renal function was normal Echocardiogram done on 06/01/22 also came back normal with LVEF between 65 to 70%; there is moderate septal hypertrophy but no valvular pathology was seen Arterial duplex done a few months ago came back completely normal as well Patient states that he stopped taking his Tecolote and Abilify a while back and so far has had no significant issues since States that his psychiatrist is aware that he stopped the Rx and is agreeable to this and he is now on Rx for ADHD (Adderall XR) Will have patient start back on Bumetanide 2 mg Q AM x 7 days, then as needed, for his edema Will have him get some labs rechecked ABIGAIL for further evaluation (2) Exertional dyspnea: Code(s): R06.09 - Other forms of dyspnea Plan: Reminded again that this is mostly multifactorial, including due to his weight (gain), edema and physical deconditioning His labs, echocardiogram and chest x-rays done a few months ago all came out normal (3) Asthma: Code(s): J45.909 - Unspecified asthma, uncomplicated Qualifiers: Asthma complication type: uncomplicated Asthma persistence: intermittent Asthma severity: mild Qualified Code(s): J45.20 - Mild intermittent asthma, uncomplicated Plan: Controlled Continue Albuterol HFA 1 to 2 inhalations Q 6 hours as needed (4) Low back pain: Code(s): M54.50 - Low back pain, unspecified Qualifiers: Back pain laterality: midline Chronicity: unspecified Sciatica presence: without sciatica Qualified Code(s): M54.50 - Low back pain, unspecified Plan: Lumbar spine x-rays done back in April 2022 came out unremarkable Will refer him to physical therapy for further evaluation and management Continue Tizanidine 4 mg TID PRN (5) Chronic constipation: Code(s): K59.09 - Other constipation Plan: Currently well-controlled Reinforced increased oral fluids and dietary fiber Continue Linzess 72 mcg QD Follow up with GI as scheduled (6) Abdominal bloating: Code(s): R14.0 - Abdominal distension (gaseous) Plan: Discussed that this is likely due to his globularly distended abdomen, likely related to his weight but patient is concerned about his digestion Will refer him to GI for further evaluation and management (7) Vitamin D deficiency: Code(s): E55.9 - Vitamin D deficiency, unspecified Plan: Continue Vitamin D3 1000 units QD (8) Alcoholism: Code(s): F10.20 - Alcohol dependence, uncomplicated Plan: States that he has not had any alcohol to drink in months now Encouraged to continue to stay sober Continue Thiamine 100 mg QD as well as his Vitamin B complex and Vitamin C daily (9) Schizoaffective disorder, bipolar type: Code(s): F25.0 - Schizoaffective disorder, bipolar type Plan: Was on Aripiprazole ER 400 mg IM Q 30 days and Tecolote 300 mg QD and 600 mg Q HS previously but states that he stopped taking these on his own and that his psychiatrist is agreeable to this and currently has him on Adderall XR 35 mg t otal daily dose QD instead Follow up with psychiatry as scheduled (sees Johnny Macias) (10) Smoker: Code(s): F17.200 - Nicotine dependence, unspecified, uncomplicated Plan: Counseled again on smoking cessation Continue Nicotine patch 21 mg QD (11) Morbid obesity with BMI of 40.0-44.9, adult: Code(s): E66.01 - Morbid (severe) obesity due to excess calories; Z68.41 - Body mass index [BMI] 40.0-44.9, adult Plan: Reinforced diet/exercise as tolerated/lose weight - has gained about 20 pounds since his last visit Plan Follow up in 4 months Orders: Orders PT Evaluation and Treatment Today M54.50 - Low back pain, unspecified Complete Blood Count Auto Diff Today I10 - Essential (primary) hypertension, R63.5 - Abnormal weight gain Comprehensive [place]. Panel Fast Today E78.00 - Pure hypercholesterolemia, unspecified, R63.5 - Abnormal weight gain Lipid Panel Today E78.00 - Pure hypercholesterolemia, unspecified, R63.5 - Abnormal weight gain TSH reflex Free T4 Today E78.00 - Pure hypercholesterolemia, unspecified, R63.5 - Abnormal weight gain UA CC w/rflx Micro + Cult Today R30.0 - Dysuria, R63.5 - Abnormal weight gain Referrals Gastroenterology Referral R14.0 - Abdominal distension (gaseous) Medications: New dextroamphetamine-amphetamine 30 mg ER (Adderall XR) Partial Fill upon patient request. 30 mg PO QAM 30 caps 0RF dextroamphetamine-amphetamine 5 mg ER (Adderall XR) Partial Fill upon patient request. 5 mg PO QAM 30 caps 0RF zolpidem 5 mg PO BEDTIME 30 tabs 0RF Changed From bumetanide 2 mg PO DAILY 30 days 30 tabs 2RF edema To bumetanide 2 mg PO DAILY 30 days PRN 30 tabs 0RF edema Coding Level of Care Code Est Pt Level 4 (04847) Diagnoses Edema R60.1 Edema type: generalized Exertional dyspnea R06.09 Asthma J45.20 Asthma complication type: uncomplicated Asthma persistence: intermittent Asthma severity: mild Low back pain M54.50 Back pain laterality: midline Chronicity: unspecified Sciatica presence: without sciatica Chronic constipation K59.09 Abdominal bloating R14.0 Vitamin D deficiency E55.9 Alcoholism F10.20 Schizoaffective disorder, bipolar type F25.0 Smoker F17.200 Morbid obesity with BMI of 40.0-44.9, adult E66.01; Z68.41
[2022-10-14 13:28] VITALS: BP 138/76; PULSE 100; O2SAT 96; BMI 45.3
== END 2022-10-14 14:03 | disposition home or self-care (01) ==
PROVIDERS: PCP Internal Medicine; Visit Provider Internal Medicine
DX: J45.20 Mild intermittent asthma, uncomplicated (principal); E55.9 Vitamin D deficiency, unspecified; Z68.41 Body mass index [BMI] 40.0-44.9, adult; E66.01 Morbid (severe) obesity due to excess calories; R60.1 Generalized edema; R06.09 Other forms of dyspnea; M54.50 Low back pain, unspecified; K59.09 Other constipation; F10.20 Alcohol dependence, uncomplicated; F25.0 Schizoaffective disorder, bipolar type; R14.0 Abdominal distension (gaseous); F17.210 Nicotine dependence, cigarettes, uncomplicated
CPT/HCPCS: 99214

== ENCOUNTER 2022-11-11 15:37 | Emergency (ER) | payer OTHER, SELFPAY ==
[2022-11-11 15:49] VITALS: BP 162/94; PULSE 118; RESP 18; TEMP 36.8; O2SAT 98; BMI 45.9
--- NOTE | 2022-11-11 15:49 | ED.ANXIETY ---
HPI - Anxiety General Chief Complaint: Anxiety Stated Complaint: Anxiety Time Seen by Provider: 11/11/22 16:03 Source: patient Mode of arrival: ambulatory Limitations: no limitations History of Present Illness HPI narrative: 37 yo male with PMH of obesity, HLD, lymphedema, schizoaffective disorder, alcoholism, here with c/o panic attack today but no SI/HI/ AH/ VH he states he feels safe at home. He states he has had some stress and bad thoughts but no thoughts of self harm and doesn't want to . He has had panic attacks before and this is the same. complaint: anxiety Onset (ago): hour(s) (couple) Symptoms: palpitations, perioral numbness/tingling and sense of impending doom Severity: similar to previous episodes Quality: constant Place: home History of similar episodes: Yes Provoking factors: emotional stress Relieving factors: nothing Exacerbating factors: nothing Associated symptoms: denies other symptoms Related Data Previous Rx's Medication Instructions Recorded albuterol sulfate 90 mcg/actuation 2 puff inhalation Q4-6H PRN 09/10/21 aerosol inhaler shortness of breath or wheezing #8.5 grams albuterol sulfate 2.5 mg/3 mL 2.5 mg (3 mL) inhalation Q4-6H PRN 11/18/21 (0.083 %) solution for nebulization shortness of breath or wheezing #180 mL cholecalciferol (vitamin D3) 25 25 mcg PO DAILY 90 days #90 tabs 05/03/22 mcg (1,000 unit) tablet linaclotide 72 mcg capsule 72 mcg PO QAM #30 caps 05/03/22 (Linzess) nicotine 21 mg/24 hr daily 1 patch transdermal DAILY 28 days 05/03/22 transdermal patch #28 ea thiamine HCl (vitamin B1) 100 mg 100 mg PO DAILY 90 days #90 tabs 05/03/22 tablet vitamin B comp and C no.3 15 mg-10 1 cap PO DAILY 90 days #90 caps 05/03/22 mg-50 mg-5 mg-300 mg capsule (B Complex Plus Vitamin C) tizanidine 4 mg tablet 4 mg PO Q8H PRN low back pain 30 07/22/22 days #90 tabs bumetanide 2 mg tablet 2 mg PO DAILY PRN edema 30 days 09/01/23 #30 tabs dextroamphetamine-amphetamine ER 30 mg PO QAM #30 caps 10/14/22 30 mg 24hr capsule,extend release (Adderall XR) dextroamphetamine-amphetamine ER 5 5 mg PO QAM #30 caps 10/14/22 mg 24hr capsule,extend release (Adderall XR) zolpidem 5 mg tablet 5 mg PO BEDTIME #30 tabs 10/14/22 Allergies Allergy/AdvReac Type Severity Reaction Status Date / Time pineapple Allergy Itching Verified 11/11/22 15:49 Review of Systems Review of Systems: Constitutional : No Fever, No Chills Cardiovascular : No Chest Pain, No SOB, pos heart racing Respiratory : No Cough, No Sputum, No Dyspnea Gastrointestinal : No Nausea, No Vomiting, No Diarrhea, No Hematochezia, No Melena Musculoskeletal : No Myalgias Skin : No Skin Lesions, No rash Neuro : No Weakness, No Numbness, No Paresthesias, No Dizziness, No Headache Psych : positive Anxiety, positive Depression, no SI/HI Heme/Lymph: No Lymphadenopathy Endocrine : No Polyuria, No Polydipsia All other systems reviewed and are negative [facility] Past Medical History Source: old records reviewed Medical History Morbid obesity with BMI of 40.0-44.9, adult Schizoaffective disorder, bipolar type Smoker Vitamin D deficiency Pure hypercholesterolemia Elevated LFTs Alcoholism Asthma Surgical History No significant past surgical history Family History Family History Mother No problems noted. Father No problems noted. Social History Social History Housing: Apartment Alcohol intake: current Alcohol intake frequency: holidays/special occasions only Patient Tobacco Use Status: Current everyday Tobacco user Tobacco use type: Cigarette Cigarettes Per Day: 5 e-Cigarette/Vaping Use: Never Used Second Hand Smoke Exposure: No Advance Directives: No Advance Directives Information Provided: No service: No Current occupational status: disabled Cognitive needs: No Hearing needs: No Vision needs: No Physical Exam Vital Signs: Vital Signs: Last Vital Signs Temp 98.3 F 11/11/22 15:49 Pulse 118 H 11/11/22 15:49 Resp 18 11/11/22 15:49 BP 162/94 H 11/11/22 15:49 Pulse Ox 98 11/11/22 15:49 O2 Del Method Room Air 11/11/22 15:49 BMI result Body Mass Index 45.9 Appearance: Alert. Oriented X3. No acute distress. Eyes: Pupils equal, round and reactive to light. ENT: Pharynx normal. Neck: Normal inspection. Neck supple. CVS: Normal heart rate and rhythm when talking about issues HR up to 115. Pulses normal. Respiratory: No respiratory distress. Breath sounds normal. Abdomen: Soft and non-tender. Skin: Skin warm and dry. Normal skin color. Normal skin turgor. Extremities: No lower extremity edema. Neuro: Oriented X 3. No motor deficit. No sensory deficit. Course Course Course Narrative: This is an RME: Additional HPI, ROS, PE not included below will be deferred to primary provider. Patient is a 37 year male who presents to the emergency department complaining of bad anxiety for the past 30 minutes, denies precipitating events. Denies SI/HI. States he would like testing ran to see that he is okay. Denies any physical complaints when asked. Does not have any therapist or psychiatrist. Not on medication for anxiety currently. Denies drug or alcohol usage. He is calm, cooperative, answering questions appropriately, no apparent distress. Reevaluation(s) Reevaluation #1: asked patient multiple times if they want to talk to CARE team. Medications Administered Discontinued Medications Generic Name Dose Route Start Last Admin Trade Name Mahogany PRN Reason Stop Dose Admin Lorazepam 1 mg 11/11/22 16:14 11/11/22 16:44 Lorazepam 1 Mg Tablet PO 11/11/22 16:15 1 mg ONCE ONE Administration Medical Decision Making Medical Decision Making MDM Narrative: 37 yo male with PMH of obesity, HLD, lymphedema, schizoaffective disorder, alcoholism, here with c/o panic attack today but no SI/HI/ AH/ VH here with panic attacks denies medical complaints to me states this is chronic and he has had this before. He states that this is chronic and not new. He has a psychiatrist and working with [facility] for therapist. At this time will give PO ativan and DC home at his request. Differential Diagnosis Differential Diagnoses: The differential diagnosis associated with the presentation includes anxiety, panic attack Admission/Observation Consideration of admission/observation: Escalation of care including admission/observation considered offered observation for CARE team but declined denies SI/HI External Record Review External record reviewed: Inpatient record Tests considered The following testing was considered but not selected: basic labs and EKG but patient denied any medical complaints Discharge Plan Discharge Clinical Impression: Panic disorder Patient Disposition: Home, Self-Care Instructions: Panic Disorder (ED) Additional Instructions: return for any thoughts of self harm or any other mental health issues. national suicide hotline is 988. Please follow up with your prescribers. you can come back at any time to talk to our CARE team if you feel worse and unsafe. Prescriptions: No Action albuterol sulfate 90 mcg/actuation HFA aerosol inhaler 2 puff inhalation Q4-6H PRN (Reason: shortness of breath or wheezing) Qty: 8.5 7RF albuterol sulfate 2.5 mg /3 mL (0.083 %) solution for nebulization 2.5 mg inhalation Q4-6H PRN (Reason: shortness of breath or wheezing) Qty: 180 0RF tizanidine 4 mg tablet 4 mg PO Q8H PRN (Reason: low back pain) 30 Days Qty: 90 1RF cholecalciferol (vitamin D3) 25 mcg (1,000 unit) tablet 25 mcg PO DAILY 90 Days Qty: 90 3RF Linzess 72 mcg capsule 72 mcg PO QAM Qty: 30 6RF thiamine HCl (vitamin B1) 100 mg tablet 100 mg PO DAILY 90 Days Qty: 90 3RF nicotine 21 mg/24 hr patch 24 hour 1 patch transdermal DAILY 28 Days Qty: 28 1RF B Complex Plus Vitamin C 70-05-95-5-300 mg capsule 1 cap PO DAILY 90 Days Qty: 90 3RF Rx Instructions: give with food (meal/snack) dextroamphetamine-amphetamine [Adderall XR] 30 mg capsule,extended release 24hr 30 mg PO QAM Qty: 30 0RF Rx Instructions: Partial Fill upon patient request. dextroamphetamine-amphetamine [Adderall XR] 5 mg capsule,extended release 24hr 5 mg PO QAM Qty: 30 0RF Rx Instructions: Partial Fill upon patient request. zolpidem 5 mg tablet 5 mg PO BEDTIME Qty: 30 0RF bumetanide 2 mg tablet 2 mg PO DAILY PRN (Reason: edema) 30 Days Qty: 30 0RF
[2022-11-11] MEDS: LORazepam 1 MG TABLET PO (16:44)
[2022-11-11 17:27] VITALS: PULSE 107; RESP 18; O2SAT 98
--- NOTE | 2022-11-11 17:27 | PC.NURSE ---
Pt A&Ox3, slow to responding to questions, reports having a panic attack at home and having voices in my head , denies SI/HI, denies wanting to talk to crisis team. Med given per APR. Pt ambulated independently with steady gait.
== END 2022-11-11 17:32 | disposition home or self-care (01) ==
PROVIDERS: Emergency Provider Emergency Medicine; PCP Internal Medicine
DX: F41.1 Generalized anxiety disorder (principal); F43.0 Acute stress reaction; F41.0 Panic disorder [episodic paroxysmal anxiety]; F17.210 Nicotine dependence, cigarettes, uncomplicated; Z71.6 Tobacco abuse counseling; Z79.899 Other long term (current) drug therapy
CPT/HCPCS: 99283; 99284

== ENCOUNTER 2022-11-25 08:30 | Outpatient (AMB) | payer OTHER, SELFPAY ==
--- NOTE | 2022-11-25 08:59 | MHC.PC.OV ---
Vital Signs 11/25/22 08:59 Height 5 ft 11 in Blood Pressure Location Lt brachial Position Sitting Pulse Source Pulse Oximeter Oxygen Delivery Method Room Air Intake Visit Reasons: Colonoscopy request Intake Note: Telehelth call with pt for vomiting, stomach ache, bloating for 2 months. 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 Accompanied by: Self / Same As Patient Allergies pineapple Allergy (Verified 11/25/22 09:14) Itching Medication List - Last Reconciled 11/25/22 by Livan Rosales MD albuterol sulfate 90 mcg/actuation 2 puffs inhalation Q4-6H PRN albuterol sulfate 2.5 mg (3 mL) inhalation Q4-6H PRN bumetanide 2 mg PO DAILY PRN 30 days cholecalciferol (vitamin D3) 25 mcg PO DAILY 90 days dextroamphetamine-amphetamine 30 mg ER (Adderall XR) 30 mg PO QAM dextroamphetamine-amphetamine 5 mg ER (Adderall XR) 5 mg PO QAM linaclotide (Linzess) 72 mcg PO QAM nicotine 1 patch transdermal DAILY 28 days thiamine HCl (vitamin B1) 100 mg PO DAILY 90 days tizanidine 4 mg PO Q8H PRN 30 days vitamin B comp and C no.3 (B Complex Plus Vitamin C) 1 cap PO DAILY 90 days zolpidem 5 mg PO BEDTIME Tobacco use date assessed: 10/14/22 HPI Colonoscopy request HPI Details Patient's follow-up visit / consultation today is done over the phone - this is a Telehealth visit States that he has been experiencing on and off vomiting and prefers not to come into the office Patient's current medications have been reviewed and verified with patient and / or caregiver / proxy and have been updated accordingly in the medication list Patient states that he would like to get his colon checked out or cleansed as he has been experiencing frequent abdominal bloating and recurrent diffuse abdominal pain and discomfort States that he has been gaining a lot of weight and does not know why Feels that his stomach is getting bigger and bigger with his weight gain and he now feels bloated often Relates also (+) on and off nausea and occasional vomiting and feels that there is something wrong with his bowels and believes that having them cleaned out will help him a lot, not only with his symptoms but may also help him lose some weight Patient has schizoaffective disorder and bipolar disorder and has poor insight and also appears to have some intellectual deficit and it is very difficult to explain to him that his symptoms seem likely more related to his stomach (he has a Hx of alcohol abuse) and not his bowels and he seems to be convinced that he has some bowel issues and procedures involving the bowels are what will help him Also needs his Zolpidem Rx refilled PFSH Medical History Morbid obesity with BMI of 40.0-44.9, adult Schizoaffective disorder, bipolar type Smoker Vitamin D deficiency Pure hypercholesterolemia Elevated LFTs Alcoholism Asthma Surgical History (Reviewed 11/25/22 @ 09: by Livan Rosales MD) No significant past surgical history Family History (Reviewed 11/25/22 @ : by Livan Rosales MD) Mother No problems noted. Father No problems noted. Social History (Reviewed 11/25/22 @ : by Livan Rosales MD) Housing: Apartment Alcohol intake: current Alcohol intake frequency: holidays/special occasions only Patient Tobacco Use Status: Current everyday Tobacco user Tobacco use type: Cigarette Cigarettes Per Day: 5 e-Cigarette/Vaping Use: Never Used Second Hand Smoke Exposure: No Substance Use Type: Marijuana service: No Current occupational status: disabled Cognitive needs: No Hearing needs: No Vision needs: No Questionnaire Thrive Questionnaire Date Thrive assessed: 10/14/22 KITTY-7 AMB Questionnaire KITTY-7 Date KITTY - 7 assessed: 10/14/22 Source: Developed by Drs. Zay Lopez, Tonya Ornelas, Holger Bourgeois and colleagues, with an educational suellen from [employer]. Review of Systems Const Reports difficulty sleeping (Zolpidem helps), Reports fatigue, Denies fever(s), Denies headache(s) and Reports weight gain ENT Denies dysphagia, Denies dizziness, Denies otalgia, Denies headache(s), Denies neck pain, Denies odynophagia and Denies sore throat Card Denies chest pain, Reports pedal edema (on and off), Reports leg edema (on and off) and Reports dyspnea on exertion (mild) Resp Denies chest congestion, Denies cough, Reports dyspnea on exertion (mild) and Denies wheezing GI Reports abdominal pain (on and off), Reports bloating (frequent), Reports constipation (chronic athough he reports moving his bowels daily), Denies dysphagia, Denies diarrhea, Reports nausea (on and off), Denies odynophagia and Reports vomiting (occasional) Denies hematuria, Reports nocturia and Reports urinary frequency Musc Details: recurrent leg pain/cramps with walking Reports back pain and Denies neck pain Neuro Denies dizziness and Denies headache(s) Psych Reports as per HPI, Reports anxiety, Denies depression and Denies irritability Endo Reports fatigue Aller/Immun Denies wheezing Physical exam (Primary Care) Vital Signs: Oxygen Delivery Method Room Air 11/25/22 08:59 Physical examination is not performed as visit / consultation today is done over the phone - Telehealth visit All physical findings indicated here, if present, are as per patient's and / or caregivers / proxy's report Tobacco/Smoking Status: Tobacco use Status Tobacco use date assessed 10/14/22 11/25/22 09:01 Patient Tobacco Use Status Current everyday Tobacco 11/25/22 09:01 Tobacco use type Cigarette 11/25/22 09:01 e-Cigarette/Vaping Use Never Used 11/25/22 09:01 Thrive Assessment: Date of Thrive Assessment Date Thrive assessed 10/14/22 11/25/22 09:01 Telehealth Telehealth Location of provider rendering services: practice address Location of patient: address on file Patient Identification confirmed using: Name, : Yes Telehealth method: voice only Patient verbally consented to treatment: Yes Patient verbally consented to billing insurance company: Yes Patient informed of any privacy concerns related to visit: Yes Minutes spent on Phone/Video with Pt.: 17 Assessment and Plan Assessment & Plan (1) Abdominal pain: Code(s): R10.9 - Unspecified abdominal pain Qualifiers: Abdominal location: generalized Qualified Code(s): R10.84 - Generalized abdominal pain Plan: Patient is advised that given his GI symptoms, it seems more likely that he has some problems with his stomach (he has a Hx of alcohol abuse) rather than his bowels and that an upper endoscopy may be more helpful and informative but he is convinced that he has some bowel issues and that procedures involving the bowels are what will help him better as he has been experiencing frequent abdominal bloating and recurrent diffuse abdominal pain and discomfort and feels that his stomach is getting bigger and bigger with his weight gain and making him feel bloated often Advised that I will refer him to GI and they will see and evaluate him and do what is appropriate Referral done (2) Abdominal bloating: Code(s): R14.0 - Abdominal distension (gaseous) Plan: Advised again that his GI symptoms are more suggestive of a gastric issue and that an EGD may be more appropriate He is insistent that he needs his colon checked out and cleansed Will refer him to GI for further evaluation and management (3) Chronic constipation: Code(s): K59.09 - Other constipation Plan: Reinforced increased oral fluids and dietary fiber Continue Linzess 72 mcg QD Follow up with GI as scheduled (4) Edema: Code(s): R60.9 - Edema, unspecified Qualifiers: Edema type: generalized Qualified Code(s): R60.1 - Generalized edema Plan: Likely multifactorial, including related to his weight and stasis/dependent edema Continue Bumetanide 2 mg Q AM as needed for his edema (5) Asthma: Code(s): J45.909 - Unspecified asthma, uncomplicated Qualifiers: Asthma severity: mild Asthma persistence: intermittent Asthma complication type: uncomplicated Qualified Code(s): J45.20 - Mild intermittent asthma, uncomplicated Plan: Appears controlled Continue Albuterol HFA 1 to 2 inhalations Q 6 hours as needed (6) Vitamin D deficiency: Code(s): E55.9 - Vitamin D deficiency, unspecified Plan: Continue Vitamin D3 1000 units QD (7) Alcoholism: Code(s): F10.20 - Alcohol dependence, uncomplicated Plan: States that he has not had any alcohol to drink for months now Encouraged to continue to stay sober Continue Thiamine 100 mg QD and Vitamin B complex and Vitamin C daily (8) Insomnia: Code(s): G47.00 - Insomnia, unspecified Qualifiers: Insomnia type: unspecified Qualified Code(s): G47.00 - Insomnia, unspecified Plan: Continue Zolpidem 5 mg Q HS PRN - Rx refilled (9) Schizoaffective disorder, bipolar type: Code(s): F25.0 - Schizoaffective disorder, bipolar type Plan: Was on Aripiprazole ER 400 mg IM Q 30 days and Freeman 300 mg QD and 600 mg Q HS previously but states that he stopped taking these on his own and that his psychiatrist is agreeable to this and currently has him on Adderall XR 35 mg total daily dose QD instead Follow up with psychiatry as scheduled (sees Johnny Macias) (10) Smoker: Code(s): F17.200 - Nicotine dependence, unspecified, uncomplicated Plan: Counseled again on smoking cessation Continue Nicotine patch 21 mg QD (11) Morbid obesity with BMI of 40.0-44.9, adult: Code(s): E66.01 - Morbid (severe) obesity due to excess calories; Z68.41 - Body mass index [BMI] 40.0-44.9, adult Plan: Reinforced diet/exercise as tolerated/lose weight Plan Follow up as scheduled next month Orders: Referrals Gastroenterology Referral K59.09 - Other constipation, R10.9 - Unspecified abdominal pain, R14.0 - Abdominal distension (gaseous), R19.00 - Intra-abdominal and pelvic swelling, mass and lump, unspecified site Medications: Refilled zolpidem 5 mg PO BEDTIME 30 tabs 0RF Coding Level of Care Code Tele Est Pt Level 3 (27118) Diagnoses Generalized abdominal pain R10.84 Abdominal location: generalized Abdominal bloating R14.0 Chronic constipation K59.09 Generalized edema R60.1 Edema type: generalized Mild intermittent asthma without complication J45.20 Asthma severity: mild Asthma persistence: intermittent Asthma complication type: uncomplicated Vitamin D deficiency E55.9 Alcoholism F10.20 Insomnia, unspecified type G47.00 Insomnia type: unspecified Schizoaffective disorder, bipolar type F25.0 Smoker F17.200 Morbid obesity with BMI of 40.0-44.9, adult E66.01; Z68.41
== END 2022-11-25 10:11 | disposition home or self-care (01) ==
PROVIDERS: PCP Internal Medicine; Visit Provider Internal Medicine
DX: R10.84 Generalized abdominal pain (principal); F25.0 Schizoaffective disorder, bipolar type; E66.01 Morbid (severe) obesity due to excess calories; Z68.41 Body mass index [BMI] 40.0-44.9, adult; F10.20 Alcohol dependence, uncomplicated; R14.0 Abdominal distension (gaseous); K59.09 Other constipation; R60.1 Generalized edema; J45.20 Mild intermittent asthma, uncomplicated; E55.9 Vitamin D deficiency, unspecified; G47.00 Insomnia, unspecified; F17.200 Nicotine dependence, unspecified, uncomplicated
CPT/HCPCS: 99442

== ENCOUNTER 2022-12-20 11:00 | Outpatient (RCR) | payer OTHER, SELFPAY ==
[2022-12-13 11:20] VITALS: BP 136/92; PULSE 114; O2SAT 99
--- NOTE | 2022-12-13 15:00 | MHC.PT.EP ---
[facility] [place] Office [place] Office [place] Office [address] Coco Chaves [address] [phone] F: [phone] F: [phone] F: [phone] F: [phone] Physical Therapy Plan of Care Date of Evaluation: 12/13/22 Date of Surgery: Diagnosis: low back pain Assessment: Patient is a 37 y.o. male who is referred to PT by Dr. Livan Rosales MD, with Dx of low back pain. His pain is chronic in nature, normal x-ray imaging of lumbar spine. Other concerns regarding patient care include cardiac sxs of angina upon exertion (pt had stress test and echocardiogram but it is unclear if he had appropriate FUPs with diamond cleaver.) as well as possible GERD and/or sxs of abdominal pain, is good candidate for referral to GI specialist. Patient impairments include pain, weakness in hips and core, generalized deconditioning due to sedentary lifestyle. Patient current functional limitations are worse with prolonged walking, bend/squat, avoids stairs ?due to LBP, difficulty putting on shoes/socks. Patient will benefit from skilled PT to address aforementioned impairments and functional limitations to meet established goals. Frequency and Duration: The patient will be seen 1x/week for 4 weeks Short Term Goals: 2 weeks Patient demonstrates consistency and independence with HEP to self manage symptoms. Nursing Home Goals: 4 weeks Patient is able to demonstrate proper bending and good lumbar spine posture/positioning to reduce LBP/strain. Patient presents with increased bilateral hip flexion 5/5 to be able to walk for longer distances at work. Treatment Plan: Modalities to reduce pain, spasms and effusion. Manual therapy to restore motion and function. Therapeutic exercise to improve strength and flexibility. Neuromuscular re-education for posture and balance. Therapeutic activities to return to functional activities of daily living. Electronically signed by: Swetha Betts, PT, DPT Please sign and return to therapist. Thank you for your referral.
--- NOTE | 2023-01-24 11:34 | MHC.PT.DC ---
[facility] [place] Office [place] Office [place] Office [address] Coco Chaves [address] [phone] F: [phone] F: [phone] F: [phone] F: [phone] Physical Therapy Discharge Report Diagnosis: low back pain Date of Surgery: Date of Evaluation: 12/13/22 Date of Discharge: 01/24/23 Treatments to Date: 2 Cancellations to Date: No Shows to Date: 1 Discharge Status: Patient Elected to Stop Visit Non-compliance Discharge Summary: Danielle was only seen for 2 sessions and he ceased attending PT on his own accord and did not show to his last scheduled visit. His last PT treatment on 12/20/22 the assessment reads, I am cautious with his movements, cues for breathing to not hold breath or forcefully hold breath as last session he had some discomfort in chest and abdomen after bending and trying to lift. I focus on massage for tight paraspinals prior to exercises, then began gentle exercises with adequate rest breaks in supine and s/l. I showed him stretching for LEs in supine and standing to practice at home to reduce leg cramps at night to see if it would help. He did not report pain and no SOB during session. Electronically signed by: Swetha Betts, PT, DPT Please sign and return to therapist. Thank you for your referral.
== END 2023-01-24 11:34 | disposition home or self-care (01) ==
LOC: HO.PT 11:00
PROVIDERS: PCP Internal Medicine; Visit Provider Internal Medicine
DX: M54.50 Low back pain, unspecified (principal)
CPT/HCPCS: 97110; 97140; 97162

== ENCOUNTER 2022-12-22 09:16 | Outpatient (AMB) | payer OTHER, SELFPAY ==
--- NOTE | 2022-12-22 09:21 | A.OFFVIS_ITS ---
Intake Vital Signs 12/22/22 09:25 Height 5 ft 11 in Weight 318 lb 12.615 oz BMI 44.5 BP 141/89 H Blood Pressure Location Lt brachial Position Sitting Pulse 104 H Intake Visit Reasons: F/u constipation/abdominal distention Intake Note: Patient presents to in office visit today in follow up of constipation and abdominal distention. CC: Ptient c/o abdominal bloating, gaining a lot of weight. He also reports he sometimes feels like his food is not digesting and it stays in my stomach . He also reports heartburn, constipation, and occasional diarrhea. Dexigraph Operator Required: No Accompanied by: Self / Same As Patient Allergies cat dander Allergy (Severe, Verified 12/22/22 09:30) Itchy Eyes No Known Drug Allergies Allergy (Severe, Verified 12/22/22:30) none Seasonal Allergies Allergy (Intermediate, Verified 12/22/22:30) snee pineapple Allergy (Verified 12/22/22 09:30) Itching HPI F/u constipation/abdominal distention HPI Details Assessment & Plan (1) Chronic constipation: ?Code(s): K59.09 - Other constipation ?Plan: He says this started many years ago, I feel that the bacteria is not coming out and I feel that I can't push everything out of my body. He thinks he needs a colon cleanse - discussed this. He has had trouble since he has been unable to afford to eat healthful foods. He is currently homeless. He does not know his FHX to know if there are similar sx. He has a lot of gas and bloating, he has occasional lower abd sharp pains. Pt very limited understanding, begins yelling at me about his swollen legs why don't you people tell me whats wrong just with talking to me? You always want to do tests and do not give me any answers! He also is very easily distracted and I frequently need repeat when I am trying to tell him because she admits ?I spaced out. ?? He also states that he continues to hear music that is distracting him and I cannot hear any music during the appointment.? He frequently gets up to check his phone.? His behavior is very odd any frequently can not give me an answer as to how frequently he is experiencing various symptoms. Obviously has poor insight and psych issues that are going to complicate his care.? This added on to water obviously psychosocial in income problems could make resolution of all of his health problems quite challenging. ROV 6 weeks. ? ? ? Orders: Orders TSH reflex Free T4 Today K59.09 - Other con stipation ? XR abdomen w decub itus Today K59.09 - Other con stipation ? Medications: New linaclotide (Linze ss) 72 mcg? PO QAM 30 caps 6RF K59.09 - Other con stipation ? linaclotide (Linze ss) 72 mcg? PO QAM 30 caps 6RF K59.09 - Other con stipation LABS: Laboratory Tests 05/05/22 13:03 TSH 1.36 X-RAY OF THE ABDOMEN NOT OBTAINED TODAY'S VISIT This patient has been lost to follow-up since 07/2021 He has been using an OTC supplement with psyllium, alisa and aloe that has moved his bowels well. Long discussion re: wt loss, discussed Wegovy but may be contraindicated in bipolar disorder. Also could consider wt mgmt or metal riveting machine operator referral. He wants me to try to rx magnesium, may not be covered (same with fiber). I will try rx both. ROV 6mos. PFSH Medical History Morbid obesity with BMI of 40.0-44.9, adult Schizoaffective disorder, bipolar type Smoker Vitamin D deficiency Pure hypercholesterolemia Elevated LFTs Alcoholism Asthma Surgical History No significant past surgical history Family History Mother No problems noted. Father No problems noted. Social History (Reviewed 12/22/22 @ 09:34 by TONIA Patricia Housing: Apartment Alcohol intake: current Alcohol intake frequency: holidays/special occasions only Patient Tobacco Use Status: Current everyday Tobacco user Tobacco use type: Cigarette Cigarettes Per Day: 5 e-Cigarette/Vaping Use: Never Used Second Hand Smoke Exposure: No Substance Use Type: Marijuana service: No Current occupational status: disabled Cognitive needs: No Hearing needs: No Vision needs: No Review of Systems Const Denies fatigue, Denies fever(s), Denies night sweats, Denies poor appetite and Denies weight loss ENT Reports Normal hearing present, Denies dysphagia, Denies odynophagia, Denies throat swelling and Denies tongue swelling Card Reports no additional complaints Resp Reports no additional complaints GI Denies abdominal pain, Denies melena, Denies bloating, Denies hematochezia, Re ports constipation, Denies GI cramping, Denies dysphagia, Denies excessive flatus, Denies early satiety, Denies heartburn, Denies diarrhea, Denies nausea, Denies odynophagia, Denies vomiting and Denies hematemesis Skin/Breast Denies pruritus, Denies lesions, Denies rash and Denies jaundice Neuro Reports Normal hearing present and Denies Abnormal speech present Endo Denies fatigue Aller/Immun Denies throat swelling and Denies tongue swelling Physical Exam Vital Signs: Last Vital Signs Pulse 104 H 12/22/22 09:25 BP 141/89 H 12/22/22 09:25 BMI result Body Mass Index 44.5 Const General: cooperative, no acute distress, well developed and well groomed Nutritional Appearance: well nourished and obese Orientation/consciousness: oriented to person, oriented to place and oriented to time Limitations: No language barrier HEENT Head: Yes normocephalic and Yes atraumatic Eyes General: appearance normal, both eyes and all related structures Pupils: Equal, round and reactive pupils present Neck Neck: Yes normal visual inspection and Yes no lymphadenopathy Thyroid: Thyroid normal Resp Effort & Inspection: normal respiratory effort and able to speak in complete sentences Auscultation: clear to auscultation bilaterally Cardio Rate: regular rate Rhythm: regular rhythm Heart sounds: Normal, physiologic split S2 sound present Peripheral pulses: radial pulses present and posterior tibial pulses present GI Inspection: No distended, No Abdominal panniculus present and Yes obesity Palpation (GI): Soft to palpation, nontender, no guarding, not rigid and No hepatosplenomegaly present Percussion: Yes normal to percussion Auscultation: normal bowel sounds Rectal Exam - Male: Yes deferred Skin General skin exam: no rashes or lesions noted, turgor normal, skin not dry, no jaundice, No spider nevi and no striae Rashes: no rashes Nails: normal Neuro General: oriented to person, oriented to place and oriented to time Cranial nerves: Yes Equal, round and reactive pupils present and Yes Normal hearing present Speech: No Abnormal speech present Extrem General: Yes normal to inspection, No clubbing, No cyanosis and No edema Psych Appearance: grossly normal and well kempt Mental Status: mental status grossly normal Speech and movement: Normal speech and movement present Affect: normal affect Attitude: cooperative Thought process: Normal thought process present and not confabulating Thought content: Normal thought content present Insight: Fair insight present (Psych) Judgement: Fair judgement present (Psych) Assessment & Plan Assessment & Plan (1) Chronic constipation: Code(s): K59.09 - Other constipation Plan This patient has been lost to follow-up since 07/2021 He has been using an OTC supplement with psyllium, alisa and aloe that has moved his bowels well. Long discussion re: wt loss, discussed Wegovy but may be contraindicated in bipolar disorder. Also could consider wt mgmt or metal riveting machine operator referral. He wants me to try to rx magnesium, may not be covered (same with fiber). I will try rx both. ROV 6mos. Medications: New psyllium husk (Metamucil) 0.4 grams PO BID PRN 60 caps 6RF constipation K59.09 - Other constipation magnesium oxide 500 mg PO BID 60 caps 6RF K59.09 - Other constipation Coding Level of Care Code Est Pt Level 3 (28163) Diagnoses Chronic constipation K59.09
[2022-12-22 09:25] VITALS: BP 141/89; PULSE 104; BMI 44.5
== END 2022-12-22 10:16 | disposition home or self-care (01) ==
PROVIDERS: PCP Internal Medicine; Visit Provider Nurse Practitioner
DX: K59.09 Other constipation (principal)
CPT/HCPCS: 99213

== ENCOUNTER → 2022-12-22 09:16 | Outpatient (BNVA) | payer OTHER, SELFPAY | PROVIDERS: PCP Internal Medicine; Visit Provider Nurse Practitioner | DX: K59.09 Other constipation (principal) | CPT/HCPCS: 99212 ==

== ENCOUNTER 2023-03-22 08:40 | Outpatient (AMB) | payer OTHER, SELFPAY ==
[2023-03-22 08:54] VITALS: BP 140/98; PULSE 108; O2SAT 96; BMI 44.2
--- NOTE | 2023-03-22 08:54 | A.OFFPC_ITS ---
Vital Signs 03/22/23 08:54 Height 5 ft 11 in Weight 317 lb 4 oz BMI 44.2 BP 140/98 H Blood Pressure Location Lt brachial Position Sitting Pulse 108 H Pulse Source Pulse Oximeter Pulse Oximetry (%) 96 Oxygen Delivery Method Room Air Intake Visit Reasons: FUP MOOD/Requesting new referrals for Derm. & ENT Delivery Driver Required: No Accompanied by: Self / Same As Patient Allergies cat dander Allergy (Severe, Verified 03/22/23 09:52) Itchy Eyes No Known Drug Allergies Allergy (Severe, Verified 03/22/23 09:52) none Seasonal Allergies Allergy (Intermediate, Verified 03/22/23 09:52) snee pineapple Allergy (Verified 03/22/23 09:52) Itching Medication List - Last Reconciled 03/22/23 by Livna Rosales MD albuterol sulfate 90 mcg/actuation 2 puffs inhalation Q4-6H PRN albuterol sulfate 2.5 mg (3 mL) inhalation Q4-6H PRN cholecalciferol (vitamin D3) 25 mcg PO DAILY 90 days dextroamphetamine-amphetamine 30 mg ER (Adderall XR) 30 mg PO QAM dextroamphetamine-amphetamine 5 mg ER (Adderall XR) 5 mg PO QAM duloxetine 30 mg PO DAILY linaclotide (Linzess) 72 mcg PO QAM magnesium oxide 500 mg PO BID nicotine 1 patch transdermal DAILY 28 days psyllium husk (Metamucil) 0.4 grams PO BID PRN thiamine HCl (vitamin B1) 100 mg PO DAILY 90 days vitamin B comp and C no.3 (B Complex Plus Vitamin C) 1 cap PO DAILY 90 days zolpidem 5 mg PO BEDTIME Tobacco use date assessed: 03/22/23 Dental Screening Dental Screen Date: 03/22/23 Did you have a dental visit in the last 12 months?: Yes Did you have a dental problem in the last 6 months where you did not have access to dental care?: No Was dental information given to patient?: Patient has dentist HPI FUP MOOD/Requesting new referrals for Derm. & ENT HPI Details Patient comes in today for his follow up visit States that he is not requesting for referrals to ENT or dermatology so he does not know why these were indicated on his visit report today He actually seems unsure as to what he wants to talk about today and kept looking into some notes he wrote down for himself He appears very easily distracted and jumps from one conversation to the next rapidly, often not even finishing the previous topic that he was talking about He started to say that he feels that the current Adderall XR dose he is on is not helping BUT I have again emphasized to him that he needs to discuss this with his treating psychiatrist as they are now the ones managing and prescribing his psych meds He states that he has gained some weight again lately and is wondering if there are any nutritional supplements that he can take that will help with his weight Still reports some ARMENTA but this has not gotten any worse than before; denies any chest pains Would like to get a nebulizer that he can use when needed for his asthma He denies any headaches or dizziness (+) occasional nausea but he denies any vomiting or abdominal pain No change in bowel habits noted [facility] Medical History Morbid obesity with BMI of 40.0-44.9, adult Schizoaffective disorder, bipolar type Smoker Vitamin D deficiency Pure hypercholesterolemia Elevated LFTs Alcoholism Asthma Surgical History No significant past surgical history Family History Mother No problems noted. Father No problems noted. Social History Housing: Apartment Alcohol intake: current Alcohol intake frequency: holidays/special occasions only Patient Tobacco Use Status: Current everyday Tobacco user Tobacco use type: Cigarette Cigarettes Per Day: 5 e-Cigarette/Vaping Use: Never Used Second Hand Smoke Exposure: No Substance Use Type: Marijuana service: No Current occupational status: disabled Cognitive needs: No Hearing needs: No Vision needs: No Questionnaire PHQ-9 Over the last 2 weeks, how often have you been bothered by any of the following problems? 1. Little interest or pleasure in doing things: nearly every day 2. Feeling down, depressed, or hopeless: nearly every day 3. Trouble falling or staying asleep, or sleeping too much: nearly every day 4. Feeling tired or having little energy: nearly every day 5. Poor appetite or overeating: nearly every day 6. Feeling bad about yourself - or that you are a failure or have let yourself or your family down: nearly every day 7. Trouble concentrating on things, such as reading the newspaper or watching television: nearly every day 8. Moving or speaking so slowly that other people could have noticed. Or the opposite - being so fidgety or restless that you have been moving around a lot more than usual: not at all 9. Thoughts that you would be better off or of hurting yourself in some way: not at all Total score: 21 Depression Screening Interpretation: Positive Depression Screening Follow-up: Existing condition and In treatment Depression Screening Done: Yes 87742 - PHQ-9 Billing: Yes Source: Developed by Drs. Zay Lopez, Tonya Ornelas, Holger Bourgeois and colleagues, with an educational suellen from [employer]. Thrive Questionnaire Date Thrive assessed: 03/22/23 I am a: Patient What is your living situation today?: I have a steady place to live Within the past 12 months, did the food you bought not last and you didn't have the money to get more?: Never true Within the past 12 months, did you worry whether your food would run out before you got money to buy more?: Never true Do you have trouble paying for medicines?: No Do you have trouble getting transportation to medical appointments?: No Do you have trouble paying your heating and electricity bill?: No Do you have trouble taking care of your child, family member or friend?: No Do you have trouble with day-to-day activities such as bathing, preparing meals, shopping, managing finances, etc.?: No Are you currently unemployed and looking for a job?: No Are you interested in more education?: No Please select the resources that you would like help with: None Currently or been in a relationship where the following occur: no concerns reported THRIVE Score: 0 AUDIT C Alcohol Use Questionnaire (AUDIT-C) 1. How often do you have a drink containing alcohol?: Never 3. How often do you have six or more drinks on one occasion?: Never Total Score: 0 Score Reviewed/Action Taken: Yes KITTY-7 AMB Questionnaire KITTY-7 Date KITTY - 7 assessed: 03/22/23 Feeling nervous, anxious, or on edge: 0 = Not at all Not being able to stop or control worryin = Not at all Worrying too much about different things: 0 = Not at all Trouble relaxin = Not at all Being so restless that it is hard to sit still: 0 = Not at all Becoming easily annoyed or irritable: 0 = Not at all Feeling afraid as if something awful might happen: 0 = Not at all Total KITTY-7 score (0-4 normal; 5-9 mild; 10-14 moderate; 15-21 severe): 0 Source: Developed by Drs. Zay Lopez, Tonya Ornelas, Holger Bourgeois and colleagues, with an educational suellen from [employer]. Review of Systems Const Reports difficulty sleeping (Zolpidem helps), Reports fatigue, Denies fever(s), Denies headache(s) and Reports weight gain ENT Denies dysphagia, Denies dizziness, Denies otalgia, Denies headache(s), Denies neck pain, Denies odynophagia and Denies sore throat Card Denies chest pain, Denies pedal edema, Denies leg edema and Reports dyspnea on exertion (mild) Resp Denies chest congestion, Denies cough, Reports dyspnea on exertion (mild) and Denies wheezing GI Denies abdominal pain, Reports constipation (chronic athough he reports moving his bowels daily), Denies dysphagia, Denies diarrhea, Reports nausea (on and off), Denies odynophagia and Denies vomiting Denies hematuria, Reports nocturia and Reports urinary frequency Musc Details: recurrent leg pain/cramps with walking Reports back pain and Denies neck pain Skin/Breast Denies rash Neuro Denies dizziness and Denies headache(s) Psych Reports anxiety, Denies depression, Reports difficulty concentrating and Denies irritability Endo Reports fatigue Aller/Immun Denies wheezing Physical exam (Primary Care) Vital Signs: Last Vital Signs Pulse 108 H 03/22/23 08:54 BP 140/98 H 03/22/23 08:54 Pulse Ox 96 03/22/23 08:54 Oxygen Delivery Method Room Air 03/22/23 08:54 BMI result Body Mass Index 44.2 Tobacco/Smoking Status: Tobacco use Status Tobacco use date assessed 02/07/24 02/07/24 08:58 Patient Tobacco Use Status Current everyday Tobacco 03/22/23 08:58 Tobacco use type Cigarette 03/22/23 08:58 e-Cigarette/Vaping Use Never Used 03/22/23 08:58 PHQ-9: PHQ-9 Score PHQ-9: Total score 21 03/22/23 10:00 Depression Screening Interpretation: Positive Depression Screening Follow-up: Existing condition and In treatment Thrive Assessment: Date of Thrive Assessment Date Thrive assessed 03/22/23 03/22/23 08:58 Currently or been in a relationship where the following occur: no concerns reported Const General: no acute distress and alert HENMT Ears: TM's normal bilaterally and EAC's normal Throat: Yes posterior oropharynx normal and Yes tonsils normal (no TP congestion) Neck Neck: Yes no lymphadenopathy and Yes supple Thyroid: Thyroid normal Resp Auscultation: clear to auscultation bilaterally, no rales and no wheezes Cardio Rate: regular rate Rhythm: regular rhythm Heart sounds: no murmurs GI Inspection: Yes Abdominal wall edema and Yes distended (abdomen appears globularly enlarged and distended) Palpation (GI): Soft to palpation and nontender Auscultation: normal bowel sounds General: Yes no CVA tenderness Back/Spine/Pelvis Back: no CVA tenderness Thoracic/Lumbar Spine: No lumbar spinal tenderness Skin Rashes: no rashes Extrem General: Yes no clubbing, cyanosis or edema Assessment and Plan Assessment & Plan (1) Asthma: Code(s): J45.909 - Unspecified asthma, uncomplicated Qualifiers: Asthma complication type: uncomplicated Asthma persistence: intermittent Asthma severity: mild Qualified Code(s): J45.20 - Mild intermittent asthma, uncomplicated Plan: Continue Albuterol HFA 1 to 2 inhalations Q 6 hours as needed Per request, Rx for nebulizer was printed out and sent to his medical supply store; Rx for Albuterol nebulizer solution was sent to his local pharmacy as well (2) Chronic constipation: Code(s): K59.09 - Other constipation Plan: Currently well-controlled Reinforced increased oral fluids and dietary fiber Continue Metamucil 0.4 gm BID PRN and MagOx 500 mg BID Follow up with GI as scheduled (3) Vitamin D deficiency: Code(s): E55.9 - Vitamin D deficiency, unspecified Plan: Continue Vitamin D3 1000 units QD (4) Edema: Code(s): R60.9 - Edema, unspecified Qualifiers: Edema type: generalized Qualified Code(s): R60.1 - Generalized edema Plan: This appears to be resolved as he states that he has not had any swelling of his legs and feet over the past few months His labs done back in April 2022 all came back normal; his renal function was normal as well Echocardiogram done on 06/01/22 also came back normal with LVEF between 65 to 70%; there is moderate septal hypertrophy but no valvular pathology was seen Arterial duplex also came back completely normal as well Patient feels that his problems improved after he stopped taking his Lilly and Abilify and that they were a significant cause of his edema (5) Exertional dyspnea: Code(s): R06.09 - Other forms of dyspnea Plan: Reminded again that this is mostly multifactorial, including due to his weight (gain) and physical deconditioning His labs, echocardiogram and chest x-rays done last year all came out normal (6) Low back pain: Code(s): M54.50 - Low back pain, unspecified Qualifiers: Back pain laterality: midline Chronicity: unspecified Sciatica presence: without sciatica Qualified Code(s): M54.50 - Low back pain, unspecified Plan: Lumbar spine x-rays done back in April 2022 came out unremarkable Reinforced activity and weight-lifting restrictions Continue Tizanidine 4 mg TID PRN (7) Alcoholism: Code(s): F10.20 - Alcohol dependence, uncomplicated Plan: States that he has not had any alcohol to drink in months now Is encouraged to continue to stay sober Continue Thiamine 100 mg QD as well as his Vitamin B complex and Vitamin C daily (8) Schizoaffective disorder, bipolar type: Code(s): F25.0 - Schizoaffective disorder, bipolar type Plan: Have advised patient again that IF he has any issues, problems or concerns regarding his psych meds and symptoms, his prescribing psychiatrist is the one he should be discussing these with as I tend NOT to interfere or get involved with psychiatric prescriptions when patient has a psychiatrist who is managing and prescribing their Rx to help facilitate continuity and consistence of patient care Have advised him that psychiatrists also do not like other doctors messing with their prescriptions Was on Aripiprazole ER 400 mg IM Q 30 days and Lilly 300 mg QD and 600 mg Q HS previously but states that he stopped taking these on his own and that his psychiatrist is agreeable to this Continue Adderall XR 35 mg total daily dose (30 mg + 5 mg) QD instead Follow up with psychiatry as scheduled (sees Johnny Macias) (9) Smoker: Code(s): F17.200 - Nicotine dependence, unspecified, uncomplicated Plan: Counseled again to continue attempts at smoking cessation Continue Nicotine patch 21 mg QD (10) Morbid obesity with BMI of 40.0-44.9, adult: Code(s): E66.01 - Morbid (severe) obesity due to excess calories; Z68.41 - Body mass index [BMI] 40.0-44.9, adult Plan: Reinforced diet/exercise as tolerated/lose weight - states that he has gained some weight again since his last visit Will send him to get some follow up labs ABIGAIL and will include some additional tests to look into his recent weight gain Plan Follow up in 4 months Orders: Orders Complete Blood Count Auto Diff Today D64.9 - Anemia, unspecified, R63.5 - Abnormal weight gain, R79.89 - Other specified abnormal findings of blood chemistry Comprehensive [employer]. Panel Fast Today E78.00 - Pure hypercholesterolemia, unspecified, R63.5 - Abnormal weight gain, R79.89 - Other specified abnormal findings of blood chemistry Lipid Panel Today E78.00 - Pure hypercholesterolemia, unspecified, R63.5 - Abnormal weight gain, R79.89 - Other specified abnormal findings of blood chemistry Vitamin B12 and Folate Today E53.8 - Deficiency of other specified B group vitamins, R63.5 - Abnormal weight gain, R79.89 - Other specified abnormal findings of blood chemistry Vitamin D 25-OH Total Today E55.9 - Vitamin D deficiency, unspecified, R63.5 - Abnormal weight gain, R79.89 - Other specified abnormal findings of blood chemistry Hemoglobin A1c Today R63.5 - Abnormal weight gain, R73.01 - Impaired fasting glucose, R79.89 - Other specified abnormal findings of blood chemistry Testosterone, Free/Total Today R79.89 - Other specified abnormal findings of blood chemistry TSH reflex Free T4 Today E78.00 - Pure hypercholesterolemia, unspecified, R63.5 - Abnormal weight gain, R79.89 - Other specified abnormal findings of blood chemistry UA CC w/rflx Micro + Cult Today R30.0 - Dysuria, R63.5 - Abnormal weight gain, R79.89 - Other specified abnormal findings of blood chemistry Medications: New [NEBULIZER and all related supplies] Use as directed up to 4 times a day as needed 1 ea 0RF shortness of breath or wheezing J45.909 - Unspecified asthma, uncomplicated Changed From albuterol sulfate 2.5 mg (3 mL) inhalation Q4-6H PRN 180 mL 0RF shortness of breath or wheezing J45.20 - Mild intermittent asthma, uncomplicated To albuterol sulfate 2.5 mg (3 mL) continuous nebulization Q6-8H PRN 180 mL 5RF shortness of breath or wheezing J45.20 - Mild intermittent asthma, uncomplicated Coding Level of Care Code Est Pt Level 4 (35704) Diagnoses Mild intermittent asthma without complication J45.20 Asthma complication type: uncomplicated Asthma persistence: intermittent Asthma severity: mild Chronic constipation K59.09 Vitamin D deficiency E55.9 Generalized edema R60.1 Edema type: generalized Exertional dyspnea R06.09 Midline low back pain without sciatica, unspecified chronicity M54.50 Back pain laterality: midline Chronicity: unspecified Sciatica presence: without sciatica Alcoholism F10.20 Schizoaffective disorder, bipolar type F25.0 Smoker F17.200 Morbid obesity with BMI of 40.0-44.9, adult E66.01; Z68.41
== END 2023-03-22 10:49 | disposition home or self-care (01) ==
PROVIDERS: PCP Internal Medicine; Visit Provider Internal Medicine
DX: J45.20 Mild intermittent asthma, uncomplicated (principal); F10.20 Alcohol dependence, uncomplicated; F25.0 Schizoaffective disorder, bipolar type; E66.01 Morbid (severe) obesity due to excess calories; Z68.41 Body mass index [BMI] 40.0-44.9, adult; K59.09 Other constipation; E55.9 Vitamin D deficiency, unspecified; R60.1 Generalized edema; R06.09 Other forms of dyspnea; M54.50 Low back pain, unspecified; F17.200 Nicotine dependence, unspecified, uncomplicated
CPT/HCPCS: 99214

== ENCOUNTER 2023-03-28 10:48 | Inpatient (IN) | payer OTHER, SELFPAY ==
[2023-03-28 10:51] VITALS: BP 148/97; PULSE 106; RESP 20; TEMP 36.8; O2SAT 96; BMI 44.6
[2023-03-28 11:45] LABS: MANUAL DIFF FLAG NO
[2023-03-28 11:48] LABS: Basophils Percent Auto 0.7 % (0-2); Eosinophils Absolute Auto 0.1 X10*3/uL (0.0-0.4); Hematocrit 45.2 % (42.0-52.0); Hemoglobin 14.9 g/dl (14.0-18.0); Imm Gran Abs Auto 0.01 X10*3/uL (0.00-0.03); Imm Gran Pct Auto 0.2 % (0.0-0.4); Lymphocytes Absolute Auto 1.7 X10*3/uL (1.2-4.9); Lymphocytes Percent Auto 38.8 % (20-40); Mean Corpuscular Hemoglobin 26.7 pg (27.0-33.0); Mean Corpuscular Volume 80.9 fL (80.0-98.0); Mean Platelet Volume 9.5 fL (9.4-12.4); Monocytes Absolute Auto 0.5 X10*3/uL (0.1-1.2); Monocytes Percent Auto 11.1 % (2-11); Neutrophils Absolute Auto 2.1 x10*3/uL (2.0-8.3); Neutrophils Percent Auto 47.2 % (45-73); Platelet Count 276 X10*3/uL (160-400); Red Blood Count 5.59 X10*6/uL (4.60-5.80); Red Cell Distribution Width 13.7 % (11.0-16.0); White Blood Count 4.5 X10*3/uL (4.8-10.8)
[2023-03-28 11:48] LABS: Appearance Urine Clear; Color Urine Dark Yellow; Glucose Urine UA Negative (Negative); Leukocyte Esterase Urine Negative (Negative); Nitrite Urine Negative (Negative); Specific Gravity - Urine >= 1.030 (1.005-1.025); UMIC TRIGGER UACC YES; Urine Blood Negative (Negative); Urine Ketones Trace mg/dL (Negative); Urine Protein 30 (1+) mg/dL (Neg-Trace)
[2023-03-28 11:56] LABS: Amphetamine Screen Urine Not Detected (Not Detect); Barbiturates, Urine Not Detected (Not Detect); Benzodiazepines Screen Urine POSITIVE (Not Detect); Cannabinoid Screen Urine Not Detected (Not Detect); Cocaine Screen Urine Not Detected (Not Detect); Fentanyl, urine Not Detected (Not Detect); Opiate Screen Urine Not Detected (Not Detect); Phencyclidine Screen Urine Not Detected (Not Detect)
[2023-03-28 12:01] LABS: COVID-19 Test Negative (Negative); IDNOW Serial# 152EDE1D
[2023-03-28 12:12] LABS: Alanine Aminotransferase 43 U/L (0-40); Albumin Level 3.9 g/dL (3.5-5.0); Alkaline Phosphatase 73 U/L (39-117); Anion Gap 13 (12-20); Aspartate Amino Transferase 37 U/L (5-37); Bilirubin Total 0.4 mg/dL (0.0-1.0); Blood Urea Nitrogen 9 mg/dL (9-16); Calcium 8.9 mg/dL (8.4-10.2); Carbon Dioxide 25 mmol/L (22-29); Chloride 109 mmol/L (96-108); Estimated Glomerular Filt Rate > 60; Ethanol < 10 mg/dL; Glucose Random 90 mg/dL (60-115); Potassium 4.5 mmol/L (3.3-5.1); Sodium 142 mmol/L (135-145); Total Protein 7.5 g/dL (6.5-8.0)
[2023-03-28 12:18] LABS: Bacteria Urine None Seen (None Seen); Hyaline Casts Urine 0-2 /LPF (0-2); RBC Urine 0-2 /HPF (0-2); Squamous Epithelial Cell Urine 0-2 /HPF (0-2); WBC Urine 0-5 /HPF (0-5)
--- NOTE | 2023-03-28 13:08 | ED_ITS ---
HPI - Psych General Chief Complaint: Psychiatric Symptoms Stated Complaint: Q tip in L ear/Crisis Time Seen by Provider: 03/28/23 11:32 History of Present Illness HPI Narrative: Patient is a 37-year-old male presented today with having care voices, the voices are telling him to kill himself. There was no specific plan. In addition patient elected to use Q-tips. Left some cotton tipped in the left ear. Patient denies any specific plans. Denies recreational drugs. Complaining of pain to the left ear. Related Data Home Medications Medication Instructions Recorded Confirmed duloxetine 30 mg capsule,delayed 30 mg PO DAILY 12/22/22 03/22/23 release Previous Rx's Medication Instructions Recorded albuterol sulfate 90 mcg/actuation 2 puff inhalation Q4-6H PRN 09/10/21 aerosol inhaler shortness of breath or wheezing #8.5 grams cholecalciferol (vitamin D3) 25 25 mcg PO DAILY 90 days #90 tabs 05/03/22 mcg (1,000 unit) tablet linaclotide 72 mcg capsule 72 mcg PO QAM #30 caps 05/03/22 (Linzess) thiamine HCl (vitamin B1) 100 mg 100 mg PO DAILY 90 days #90 tabs 05/03/22 tablet vitamin B comp and C no.3 15 mg-10 1 cap PO DAILY 90 days #90 caps 05/03/22 mg-50 mg-5 mg-300 mg capsule (B Complex Plus Vitamin C) dextroamphetamine-amphetamine ER 30 mg PO QAM #30 caps 10/14/22 30 mg 24hr capsule,extend release (Adderall XR) dextroamphetamine-amphetamine ER 5 5 mg PO QAM #30 caps 10/14/22 mg 24hr capsule,extend release (Adderall XR) zolpidem 5 mg tablet 5 mg PO BEDTIME #30 tabs 11/25/22 magnesium oxide 500 mg capsule 500 mg PO BID #60 caps 12/22/22 psyllium husk 0.4 gram capsule 0.4 g PO BID PRN constipation #60 12/22/22 (Metamucil) caps nicotine 21 mg/24 hr daily 1 patch transdermal DAILY 28 days 02/19/23 transdermal patch #28 ea NEBULIZER and all related supplies #1 ea 03/22/23 albuterol sulfate 2.5 mg/3 mL 2.5 mg (3 mL) continuous 03/22/23 (0.083 %) solution for nebulization nebulization Q6-8H PRN shortness of breath or wheezing #180 mL Allergies Allergy/AdvReac Type Severity Reaction Status Date / Time cat dander Allergy Severe Itchy Eyes Verified 03/28/23 10:57 No Known Drug Allergies Allergy Severe none Verified 03/28/23 10:57 Seasonal Allergies Allergy Intermediate snee Verified 03/28/23 10:57 pineapple Allergy Itching Verified 03/28/23 10:57 Review of Systems 2 Review of Systems: No fever no chills no chest pain Positive foreign body to the left ear Yes all other systems are reviewed and are negative [facility] Past Medical History Attestation statement: The following information was validated with the patient. Medical History Morbid obesity with BMI of 40.0-44.9, adult Schizoaffective disorder, bipolar type Smoker Vitamin D deficiency Pure hypercholesterolemia Elevated LFTs Alcoholism Asthma Surgical History No significant past surgical history Family History Family History Mother No problems noted. Father No problems noted. Social History Social History Housing: Apartment Alcohol intake: current Alcohol intake frequency: holidays/special occasions only Patient Tobacco Use Status: Current everyday Tobacco user Tobacco use type: Cigarette Cigarettes Per Day: 5 e-Cigarette/Vaping Use: Never Used Second Hand Smoke Exposure: No Substance Use Type: Marijuana Advance Directives: No Advance Directives Information Provided: No service: No Current occupational status: disabled Cognitive needs: No Hearing needs: No Vision needs: No Physical Exam 2 Vital Signs: Vital Signs: Last Vital Signs Temp 98.3 F 03/28/23 10:51 Pulse 106 H 03/28/23 10:51 Resp 20 03/28/23 10:51 BP 148/97 H 03/28/23 10:51 Pulse Ox 96 03/28/23 10:51 O2 Del Method Room Air 03/28/23 10:51 BMI result Body Mass Index 44.6 Appearance: Alert. Oriented X3. No acute distress. Eyes: Pupils equal, round and reactive to light. ENT: Pharynx normal. Positive cotton balls in the left ear external canal Neck: Normal inspection. Neck supple. No lymph nodes noted. No crepitus CVS: Normal heart rate and rhythm. Pulses normal. Normal S1 and S2 Respiratory: No respiratory distress. Breath sounds normal. No Wheezing. No rales Abdomen: Soft and nontender. No rigidity. No distention. good BS x4 Skin: Skin warm and dry. Normal skin color. Normal skin turgor. Extremities: No lower extremity edema. Neurovascular intact to all extremities. No Lacerations. No Rash Neuro: Oriented X 3. No motor deficit. No sensory deficit. Moving all extermities. No slurred speech cranial nerves grossly intact Medical Decision Making Medical Decision Making [facility] Narrative: Positive hearing voices with suicidal ideation. Will get crisis evaluate patient. Labs ordered. Tox screen ordered. Previous history of psychiatric illness. 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 03/28/23 11:38 03/28/23 11:38 Labs: Lab Results 03/28/23 03/28/23 Range/Units 11:33 11:38 WBC 4.5 L (4.8-10.8) X10*3/uL RBC 5.59 (4.60-5.80) X10*6/uL Hgb 14.9 (14.0-18.0) g/dl Hct 45.2 (42.0-52.0) % MCV 80.9 (80.0-98.0) fL MCH 26.7 L (27.0-33.0) pg MCHC 33.0 (31.0-36.0) g/dl RDW 13.7 (11.0-16.0) % Plt Count 276 (160-400) X10*3/uL MPV 9.5 (9.4-12.4) fL Immature Gran % (Auto) 0.2 (0.0-0.4) % Neut % (Auto) 47.2 (45-73) % Lymph % (Auto) 38.8 (20-40) % [place] % (Auto) 11.1 H (2-11) % Eos % (Auto) 2.0 (0-4) % Baso % (Auto) 0.7 (0-2) % Lymph # (Auto) 1.7 (1.2-4.9) X10*3/uL [place] # (Auto) 0.5 (0.1-1.2) X10*3/uL Eos # (Auto) 0.1 (0.0-0.4) X10*3/uL Baso # (Auto) 0.0 (0.0-0.2) X10*3/uL Abs Immat Gran (auto) 0.01 (0.00-0.03) X10*3/uL Absolute Neuts (auto) 2.1 (2.0-8.3) x10*3/uL Absolute Nucleated RBC 0.000 (0.0-0.012) X10*3/uL Nucleated RBC % (auto) 0.0 (0.0-0.2) /100WBC Sodium 142 (135-145) mmol/L Potassium 4.5 (3.3-5.1) mmol/L Chloride 109 H (96-108) mmol/L Carbon Dioxide 25 (22-29) mmol/L Anion Gap 13 (12-20) BUN 9 (9-16) mg/dL Creatinine 0.78 (0.5-1.4) mg/dL Estim Creat Clear Calc 193.0 Estimated GFR > 60 Random Glucose 90 (60-115) mg/dL Calcium 8.9 (8.4-10.2) mg/dL Total Bilirubin 0.4 (0.0-1.0) mg/dL AST 37 (5-37) U/L ALT 43 H (0-40) U/L Alkaline Phosphatase 73 (39-117) U/L Total Protein 7.5 (6.5-8.0) g/dL Albumin 3.9 (3.5-5.0) g/dL Urine Color Dark Yellow Urine Appearance Clear Urine pH 7.0 (5.0-9.0) Ur Specific [place] >= 1.030 H (1.005-1.025) Urine Protein 30 (1+) H (Neg-Trace) mg/dL Urine Glucose (UA) Negative (Negative) mg/dL Urine Ketones Trace (Negative) mg/dL Urine Blood Negative (Negative) Urine Nitrite Negative (Negative) Ur Leukocyte Esterase Negative (Negative) Urine RBC 0-2 (0-2) /HPF Urine WBC 0-5 (0-5) /HPF Ur Squamous Epith Cells 0-2 (0-2) /HPF Urine Bacteria None Seen (None Seen) Hyaline Casts 0-2 (0-2) /LPF Urine Opiates Screen Not Detected (Not Detect) Urine Fentanyl Screen Not Detected (Not Detect) Ur Barbiturates Screen Not Detected (Not Detect) Ur Phencyclidine Scrn Not Detected (Not Detect) Ur Amphetamines Screen Not Detected (Not Detect) U Benzodiazepines Scrn POSITIVE H (Not Detect) Urine Cocaine Screen Not Detected (Not Detect) U Marijuana (THC) Screen Not Detected (Not Detect) Ethyl Alcohol < 10 mg/dL COVID-19 ([facility]LEEN) Negative (Negative) COVID-19 Clin Com See Note Procedures Procedure Narrative Procedure Narrative: An otoscope was used. Subsequently using a alligator forceps. To cotton tip was removed from the left ear. There was no complication. Eardrums is grossly intact afterwards. There was no other foreign body noted. Discharge Plan Discharge Clinical Impression: Schizoaffective disorder, Foreign body in left ear Patient Disposition: Still a Patient Prescriptions: No Action albuterol sulfate 90 mcg/actuation HFA aerosol inhaler 2 puff inhalation Q4-6H PRN (Reason: shortness of breath or wheezing) Qty: 8.5 7RF nicotine 21 mg/24 hr patch 24 hour 1 patch transdermal DAILY 28 Days Qty: 28 1RF cholecalciferol (vitamin D3) 25 mcg (1,000 unit) tablet 25 mcg PO DAILY 90 Days Qty: 90 3RF Linzess 72 mcg capsule 72 mcg PO QAM Qty: 30 6RF thiamine HCl (vitamin B1) 100 mg tablet 100 mg PO DAILY 90 Days Qty: 90 3RF B Complex Plus Vitamin C 16-07-10-5-300 mg capsule 1 cap PO DAILY 90 Days Qty: 90 3RF Rx Instructions: give with food (meal/snack) albuterol sulfate 2.5 mg /3 mL (0.083 %) solution for nebulization 2.5 mg continuous nebulization Q6-8H PRN (Reason: shortness of breath or wheezing) Qty: 180 5RF (DME) NEBULIZER and all related supplies See Rx Instructions .Route .MEDSUPPLY Qty: 1 0RF Rx Instructions: Use as directed up to 4 times a day as needed dextroamphetamine-amphetamine [Adderall XR] 30 mg capsule,extended release 24hr 30 mg PO QAM Qty: 30 0RF Rx Instructions: Partial Fill upon patient request. dextroamphetamine-amphetamine [Adderall XR] 5 mg capsule,extended release 24hr 5 mg PO QAM Qty: 30 0RF Rx Instructions: Partial Fill upon patient request. zolpidem 5 mg tablet 5 mg PO BEDTIME Qty: 30 0RF duloxetine 30 mg capsule,delayed release(DR/EC) 30 mg PO DAILY magnesium oxide 500 mg capsule 500 mg PO BID Qty: 60 6RF psyllium husk [Metamucil] 0.4 gram capsule 0.4 g PO BID PRN (Reason: constipation) Qty: 60 6RF
--- NOTE | 2023-03-28 13:58 | PC.NURSE ---
provider meeting with patient, able to remove qtip piece successfully from ear which patient tolerated well. resting quietly at this time, labs/urine obtained and sent. pending care team consult.
--- NOTE | 2023-03-28 15:44 | PC.NURSE ---
patient remains calm and cooperative at this time, sitting on couch in common area watching tv. awaiting consult from care team. no obvious signs/symptoms of distress noted.
--- NOTE | 2023-03-28 20:19 | MHC.CARE ---
CARE Team evaluation complete. Pt is a voluntary inpatient bedsearch and is on a Section 12A. ED provider, POD RN and Pt are aware.
--- NOTE | 2023-03-28 22:50 | MHC.CARE ---
RAD Team conducted a bed search for this pt, bed search is exhausted and will resume tomorrow (03/29) if deemed necessary
[2023-03-29] MEDS: hydrOXYzine HCL 50 MG TABLET PO (01:16)
[2023-03-29 04:22] VITALS: BP 126/68; PULSE 93; RESP 18; TEMP 37.1; O2SAT 98
[2023-03-29] MEDS: Amphetamine Mixed Salts 10 MG TABLET 15 MG PO (08:49)
[2023-03-29] MEDS: Amphetamine Mixed Salts 10 MG TABLET 5 MG PO (08:49)
[2023-03-29] MEDS: Nicotine 21 MG PATCH.TD24 TRANSDERMA (08:50)
[2023-03-29 09:03] VITALS: BP 147/85; PULSE 94; RESP 18; TEMP 37.2; O2SAT 98
--- NOTE | 2023-03-29 09:26 | PC.NURSE ---
Report taken from Lavonne RN assumed care of pt at 0700. Pt resting on bed easily awoken, skin pwd respirations even unlabored. Offers no complaints. Breakfast tray provided 100% consumed. Safety maintained in pod. S12 IPBS continues.Will continue to monitor.
--- NOTE | 2023-03-29 12:55 | PC.NURSE ---
Pt remains calm and cooperative with care, safety maintained in pod, plan for admit to M5 later today. Will continue to monitor.
[2023-03-29] MEDS: hydrOXYzine HCL 25 MG TABLET PO ×2 (13:47→20:53)
[2023-03-29 16:45] VITALS: BP 154/93; PULSE 112; RESP 20; TEMP 37.1; O2SAT 95
[2023-03-29 17:00] VITALS: BP 139/101; PULSE 128; RESP 18; O2SAT 97
--- NOTE | 2023-03-29 17:47 | PC.ADMIT ---
Danielle is a 37-year-old male admitted from [facility] Pod to M3 on a CV for treatment of unspecified psychosis. Tox screen positive for benzodiazepines, pt denies substance use. Pt reports drinking 1 pint adriana on a typical day, last drink was on Monday 03/27. Pt self presented to the ED secondary to command auditory hallucinations to kill himself. Pt has a hx of multiple SI attempts, last being in 2014 with overdose of prescription medications. During admission assessment, pt was pleasant, cooperative but appeared flat, guarded and had delayed responses to questions. Pt appeared paranoid and would frequently look around the room when answering questions. Pt was alert and oriented x4. Pt reports taking Ambien to help with sleep. Pt has medical hx asthma. Pt endorses CAH to harm self and SI but no plan while on the unit. Pt placed on 15 minute safety checks.
[2023-03-29] MEDS: Zolpidem Tartrate 5 MG TABLET PO (23:07)
[2023-03-30] MEDS: hydrOXYzine HCL 25 MG TABLET PO ×2 (05:36→12:40)
[2023-03-30 07:42] VITALS: BP 123/56; PULSE 86; RESP 12; TEMP 36.8; O2SAT 95
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
[2023-03-30] MEDS: Nicotine 21 MG PATCH.TD24 TRANSDERMA (09:18)
[2023-03-30 12:57] VITALS: BMI 43.7
--- NOTE | 2023-03-30 14:25 | PC.NURSE ---
Submitted 3 day notice, up on Monday04/05/23. Treatment team notified.
[2023-03-30] MEDS: LORazepam 1 MG TABLET PO (17:16)
[2023-03-30] MEDS: diphenhydrAMINE HCL 25 MG CAPSULE 50 MG PO (17:17)
[2023-03-30] MEDS: HaloperidoL 5 MG TABLET PO ×2 (17:17→21:07)
[2023-03-30] MEDS: diphenhydrAMINE HCL 25 MG CAPSULE PO (21:07)
[2023-03-30] MEDS: traZODone HCL 50 MG TABLET PO (21:07)
[2023-03-31 09:00] VITALS: BP 127/76; PULSE 92; RESP 20; TEMP 36.7; O2SAT 95
[2023-03-31] MEDS: diphenhydrAMINE HCL 25 MG CAPSULE PO ×2 (09:08→21:06)
[2023-03-31] MEDS: HaloperidoL 5 MG TABLET PO ×2 (09:08→21:05)
[2023-03-31] MEDS: Nicotine 21 MG PATCH.TD24 TRANSDERMA (09:09)
--- NOTE | 2023-03-31 09:41 | PC.NURSE ---
Submitted 3 day notice which is up on 05/05/23. Treatment team notified.
[2023-03-31] MEDS: hydrOXYzine HCL 25 MG TABLET PO (16:41)
[2023-03-31 19:45] VITALS: BP 147/86; PULSE 116; RESP 18; TEMP 36.4; O2SAT 97
[2023-03-31] MEDS: traZODone HCL 50 MG TABLET PO (21:05)
--- NOTE | 2023-03-31 22:42 | HO.PSYCHPN ---
Subjective Subjective Date of Service: 03/31/23 Reason For Visit: Psychosis Interim History: sleeping heavily, difficult to rouse. agreeable to reschedule all meds for HS. per staff, 3-day up . 11/22 anx/dep. flat. eating 50%. slept 8 hours overnight. CIWA 4 this morning, scored for anxiety only. Mental Status Exam Mental Status Exam Narrative: multiple face piercings, obese. calm, cooperative. no PMA/PMR. speech decr rate, amount. soft, flattened tone. incr latency of response. thoughts linear and logical. affect blunted. mood not assessed. no SI/SIBI/HI/AVH expressed. Diagnostics Vital Signs (24Hr): Vital Signs - 24 hr 03/31/23 09:00 03/31/23 20:03 Temperature 98.0 F 97.5 F Pulse Rate 92 100 Respiratory Rate 20 18 Blood Pressure 127/76 146/91 H Pulse Oximetry 95 98 Oxygen Delivery Method Room Air Room Air BMI result Body Mass Index 43.7 Labs 03/28/23 11:38 03/28/23 11:38 Medications Medications Current Medications Acetaminophen (Acetaminophen 325 Mg Tablet) 650 mg PO Q6H PRN PRN Reason: Headache/Pain Mild Scale (1-3) Al Hydroxide/Mg Hydroxide (Magnesium Hydrox/Alum Hydrox 30 Ml Oral.Susp) 30 ml PO Q6H PRN PRN Reason: Heartburn/Nausea Albuterol Sulfate (Albuterol Sulfate 90 Mcg 8 Gm Inhaler) 2 puff INHALE RQ4H PRN PRN Reason: shortness of breath or wheezing Hydroxyzine HCl (Hydroxyzine Hcl 25 Mg Tablet) 25 mg PO Q6H PRN PRN Reason: Anxiety Last Admin: 03/31/23 16:41 Dose: 25 mg Lorazepam (Lorazepam 1 Mg Tablet) 1 mg PO Q2H PRN PRN Reason: CIWA 8-11 Lorazepam (Lorazepam 1 Mg Tablet) 2 mg PO Q2H PRN PRN Reason: CIWA 12-15 Lorazepam (Lorazepam 1 Mg Tablet) 3 mg PO Q2H PRN PRN Reason: CIWA > 15; and call Magnesium Hydroxide (Milk Of Magnesia 30 Ml Oral.Susp) 30 ml PO DAILY PRN PRN Reason: Constipation Nicotine (Nicotine 21 Mg Patch.Td24) 21 mg TRANSDERMA DAILY EDER Last Admin: 03/31/23 09:09 Dose: 21 mg Nicotine Polacrilex (Nicotine Polacrilex 2 Mg Gum) 4 mg BUCCAL Q2H PRN PRN Reason: Nicotine Cravings Trazodone HCl (Trazodone Hcl 50 Mg Tablet) 50 mg PO BEDTIME MRX1 PRN PRN Reason: Insomnia Trazodone HCl (Trazodone Hcl 50 Mg Tablet) 50 mg PO BEDTIME EDER Last Admin: 03/31/23 21:05 Dose: 50 mg Allergies Allergies Allergy/AdvReac Type Severity Reaction Status Date / Time cat dander Allergy Severe Itchy Eyes Verified 03/28/23 10:57 No Known Drug Allergies Allergy Severe none Verified 03/28/23 10:57 Seasonal Allergies Allergy Intermediate snee Verified 03/28/23 10:57 pineapple Allergy Itching Verified 03/28/23 10:57 Assessment & Plan Assessment & Plan (1) Schizoaffective disorder: Status: Acute Code(s): F25.9 - Schizoaffective disorder, unspecified Plan 03/30: start haldol 5 BID, benadryl 25 BID, and trazodone 50 QHS. DC adderall and ambien. T/C antidepressant once psychosis is better addressed. ativan per CIWA protocol for alcohol detox; unclear if necessary, but will start for now to clarify. 03/31: appears sedated. scored 4 on CIWA. reschedule all meds at HS. otherwise continue current mgmt. Reason for continued inpatient stay Substantial Risk for: harm to self, harm to others, inability to function and rapid decompensation Time Spent With Patient Time: Total time managing care of this patient today ____ minutes.
[2023-04-01] MEDS: LORazepam 1 MG TABLET 2 MG PO (01:42)
[2023-04-01] MEDS: hydrOXYzine HCL 25 MG TABLET PO (01:42)
[2023-04-01] MEDS: traZODone HCL 50 MG TABLET PO ×2 (01:42→21:12)
[2023-04-01] MEDS: Acetaminophen 325 MG TABLET 650 MG PO ×2 (07:08→21:14)
[2023-04-01 08:35] VITALS: BP 109/56; PULSE 88; RESP 20; TEMP 37; O2SAT 96
[2023-04-01] MEDS: Throat Lozenge, Medicated LOZENGE 1 LOZENGE MUCOUS MEM ×2 (08:38→21:14)
[2023-04-01] MEDS: Nicotine 21 MG PATCH.TD24 TRANSDERMA (08:39)
--- NOTE | 2023-04-01 11:03 | HO.PSYCHPN ---
Subjective Subjective Date of Service: 04/01/23 Reason For Visit: Psychosis Subjective Notes: Conditional Voluntary Interim History: Pt presents as paranoid, reports hearing voices telling him that someone is trying to harm him and that while he is here on the unit, someone is breaking into his apartment. He asks abruptly to be discharged today as he wants to see who is getting in his apartment. He denied SI/HI. He did agree to increase haldol add morning dose. Review of Systems Review of Systems No fever no chills no chest pain Positive foreign body to the left ear Yes all other systems are reviewed and are negative Mental Status Exam Mental Status Exam Narrative: multiple face piercings, obese. calm, cooperative. no PMA/PMR. speech decr rate, amount. soft, flattened tone. incr latency of response. thoughts linear and logical. affect blunted. mood not assessed. no SI/SIBI/HI/AVH expressed. Diagnostics Vital Signs (24Hr): Vital Signs - 24 hr 03/31/23 19:45 Temperature 97.5 F Pulse Rate 116 H Respiratory Rate 18 Blood Pressure 147/86 H Pulse Oximetry 97 Oxygen Delivery Method Room Air BMI result Body Mass Index 43.7 Labs 03/28/23 11:38 03/28/23 11:38 Medications Medications Current Medications Acetaminophen (Acetaminophen 325 Mg Tablet) 650 mg PO Q6H PRN PRN Reason: Headache/Pain Mild Scale (1-3) Last Admin: 04/01/23 07:08 Dose: 650 mg Al Hydroxide/Mg Hydroxide (Magnesium Hydrox/Alum Hydrox 30 Ml Oral.Susp) 30 ml PO Q6H PRN PRN Reason: Heartburn/Nausea Albuterol Sulfate (Albuterol Sulfate 90 Mcg 8 Gm Inhaler) 2 puff INHALE RQ4H PRN PRN Reason: shortness of breath or wheezing Benzocaine (Throat Lozenge, Medicated Lozenge) 1 lozenge MUCOUS MEM Q2H PRN PRN Reason: Sore Throat Last Admin: 04/01/23 08:38 Dose: 1 lozenge Diphenhydramine HCl (Diphenhydramine Hcl 25 Mg Capsule) 50 mg PO BEDTIME [facility] Haloperidol (Haloperidol 5 Mg Tablet) 10 mg PO BEDTIME [facility] Hydroxyzine HCl (Hydroxyzine Hcl 25 Mg Tablet) 25 mg PO Q6H PRN PRN Reason: Anxiety Last Admin: 04/01/23 01:42 Dose: 25 mg Lorazepam (Lorazepam 1 Mg Tablet) 1 mg PO Q2H PRN PRN Reason: CIWA 8-11 Lorazepam (Lorazepam 1 Mg Tablet) 2 mg PO Q2H PRN PRN Reason: CIWA 12-15 Last Admin: 04/01/23 01:42 Dose: 2 mg Lorazepam (Lorazepam 1 Mg Tablet) 3 mg PO Q2H PRN PRN Reason: CIWA > 15; and call Magnesium Hydroxide (Milk Of Magnesia 30 Ml Oral.Susp) 30 ml PO DAILY PRN PRN Reason: Constipation Nicotine (Nicotine 21 Mg Patch.Td24) 21 mg TRANSDERMA DAILY [facility] Last Admin: 04/01/23 08:39 Dose: 21 mg Nicotine Polacrilex (Nicotine Polacrilex 2 Mg Gum) 4 mg BUCCAL Q2H PRN PRN Reason: Nicotine Cravings Trazodone HCl (Trazodone Hcl 50 Mg Tablet) 50 mg PO BEDTIME MRX1 PRN PRN Reason: Insomnia Last Admin: 04/01/23 01:42 Dose: 50 mg Trazodone HCl (Trazodone Hcl 50 Mg Tablet) 50 mg PO BEDTIME [facility] Last Admin: 03/31/23 21:05 Dose: 50 mg Allergies Allergies Allergy/AdvReac Type Severity Reaction Status Date / Time cat dander Allergy Severe Itchy Eyes Verified 03/28/23 10:57 No Known Drug Allergies Allergy Severe none Verified 03/28/23 10:57 Seasonal Allergies Allergy Intermediate snee Verified 03/28/23 10:57 pineapple Allergy Itching Verified 03/28/23 10:57 Assessment & Plan Assessment & Plan (1) Schizoaffective disorder: Status: Acute Code(s): F25.9 - Schizoaffective disorder, unspecified Plan 03/30: start haldol 5 BID, benadryl 25 BID, and trazodone 50 QHS. DC adderall and ambien. T/C antidepressant once psychosis is better addressed. ativan per CIWA protocol for alcohol detox; unclear if necessary, but will start for now to clarify. 03/31: appears sedated. scored 4 on CIWA. reschedule all meds at HS. otherwise continue current mgmt. 04/01 increase haldol 10mg po qhs and 5mg po daily. Reason for continued inpatient stay Substantial Risk for: inability to function Time Spent With Patient Time: Total time managing care of this patient today ____ minutes.
[2023-04-01] MEDS: clonazePAM 0.5 MG TABLET PO ×3 (12:52→21:11)
[2023-04-01] MEDS: HaloperidoL 5 MG TABLET PO (12:52)
--- NOTE | 2023-04-01 15:04 | MHC.RECOVRN ---
AUDIT-C Brief Intervention Pt had positive screen for unhealthy alcohol use on admission, subsequently met with t/w to discuss alcohol use and recovery supports/options. Pt voices concern regarding alcohol use and is aware that drinking at unhealthy levels is known to increase risk of alcohol related health problems. Pt reports 7-12 nips adriana daily x a long time. Pt expresses how alcohol use has impacted health, including negative impact on mental health. Discussed risk reduction strategies including drinking below the recommended limit. Provided pt with written resources including information on inpatient and outpatient treatment, TAM, harm reduction, and recovery coaching. Pt plans to review resources, specifically TAM, and follow up with outpatient provider. Pt provided with t/w contact information if questions or concerns arise. Denies other questions or concerns at this time.
[2023-04-01 18:20] VITALS: BP 127/74; PULSE 108; RESP 20; TEMP 36.4; O2SAT 95
[2023-04-01] MEDS: HaloperidoL 5 MG TABLET 10 MG PO (21:11)
[2023-04-01] MEDS: diphenhydrAMINE HCL 25 MG CAPSULE 50 MG PO (21:11)
[2023-04-02] MEDS: Acetaminophen 325 MG TABLET 650 MG PO (03:30)
[2023-04-02] MEDS: Throat Lozenge, Medicated LOZENGE 1 LOZENGE MUCOUS MEM ×2 (03:31→08:36)
[2023-04-02] MEDS: hydrOXYzine HCL 25 MG TABLET PO ×3 (03:32→18:52)
[2023-04-02 08:20] VITALS: BP 141/82; PULSE 111; RESP 20; TEMP 36.9; O2SAT 93
[2023-04-02] MEDS: HaloperidoL 5 MG TABLET PO (08:33)
[2023-04-02] MEDS: clonazePAM 0.5 MG TABLET PO ×2 (08:33→20:20)
[2023-04-02] MEDS: Nicotine 21 MG PATCH.TD24 TRANSDERMA (08:34)
[2023-04-02 10:52] LABS: IDNOW Serial# 08D9AD1C; Strep A Nucleic Acid Invalid (Negative)
[2023-04-02 11:22] LABS: IDNOW Serial# 58CA691E; Strep A Nucleic Acid Negative (Negative)
--- NOTE | 2023-04-02 15:36 | P.PNPSI_ITS ---
Subjective Subjective Date of Service: 04/02/23 Reason For Visit: Psychosis Subjective Notes: Conditional Voluntary Interim History: Pt presents as paranoid, reports hearing voices telling him that someone is trying to harm him and that while he is here on the unit, someone is breaking into his apartment. He asks abruptly to be discharged today as he wants to see who is getting in his apartment. He denied SI/HI. He did agree to increase haldol add morning dose. He reports sore throat- strep throat ordered. Review of Systems Review of Systems No fever no chills no chest pain Positive foreign body to the left ear Yes all other systems are reviewed and are negative Mental Status Exam Mental Status Exam Narrative: multiple face piercings, obese. calm, cooperative. no PMA/PMR. speech decr rate, amount. soft, flattened tone. incr latency of response. thoughts linear and logical. affect blunted. mood not assessed. no SI/SIBI/HI/AVH expressed. Diagnostics Vital Signs (24Hr): Vital Signs - 24 hr 04/01/23 18:20 04/02/23 08:20 Temperature 97.5 F 98.4 F Pulse Rate 108 H 111 H Respiratory Rate 20 20 Blood Pressure 127/74 141/82 H Pulse Oximetry 95 93 Oxygen Delivery Method Room Air Room Air BMI result Body Mass Index 43.7 Labs 03/28/23 11:38 03/28/23 11:38 Labs: Laboratory Results - last 48 hr 04/02/23 04/02/23 09:38 11:08 S. pyogenes GrpA MARÍA Invalid Negative Medications Medications Current Medications Acetaminophen (Acetaminophen 325 Mg Tablet) 650 mg PO Q6H PRN PRN Reason: Headache/Pain Mild Scale (1-3) Last Admin: 04/02/23 03:30 Dose: 650 mg Al Hydroxide/Mg Hydroxide (Magnesium Hydrox/Alum Hydrox 30 Ml Oral.Susp) 30 ml PO Q6H PRN PRN Reason: Heartburn/Nausea Albuterol Sulfate (Albuterol Sulfate 90 Mcg 8 Gm Inhaler) 2 puff INHALE RQ4H PRN PRN Reason: shortness of breath or wheezing Benzocaine (Throat Lozenge, Medicated Lozenge) 1 lozenge MUCOUS MEM Q2H PRN PRN Reason: Sore Throat Last Admin: 04/02/23 08:36 Dose: 1 lozenge Clonazepam (Clonazepam 0.5 Mg Tablet) 0.5 mg PO BID [facility] Last Admin: 04/02/23 08:33 Dose: 0.5 mg Diphenhydramine HCl (Diphenhydramine Hcl 25 Mg Capsule) 50 mg PO BEDTIME [facility] Last Admin: 04/01/23 21:11 Dose: 50 mg Haloperidol (Haloperidol 5 Mg Tablet) 10 mg PO BEDTIME [facility] Last Admin: 04/01/23 21:11 Dose: 10 mg Haloperidol (Haloperidol 5 Mg Tablet) 5 mg PO DAILY [facility] Last Admin: 04/02/23 08:33 Dose: 5 mg Hydroxyzine HCl (Hydroxyzine Hcl 25 Mg Tablet) 25 mg PO Q6H PRN PRN Reason: Anxiety Last Admin: 04/02/23 15:18 Dose: 25 mg Magnesium Hydroxide (Milk Of Magnesia 30 Ml Oral.Susp) 30 ml PO DAILY PRN PRN Reason: Constipation Nicotine (Nicotine 21 Mg Patch.Td24) 21 mg TRANSDERMA DAILY [facility] Last Admin: 04/02/23 08:34 Dose: 21 mg Nicotine Polacrilex (Nicotine Polacrilex 2 Mg Gum) 4 mg BUCCAL Q2H PRN PRN Reason: Nicotine Cravings Trazodone HCl (Trazodone Hcl 50 Mg Tablet) 50 mg PO BEDTIME MRX1 PRN PRN Reason: Insomnia Last Admin: 04/01/23 01:42 Dose: 50 mg Trazodone HCl (Trazodone Hcl 50 Mg Tablet) 50 mg PO BEDTIME [facility] Last Admin: 04/01/23 21:12 Dose: 50 mg Allergies Allergies Allergy/AdvReac Type Severity Reaction Status Date / Time cat dander Allergy Severe Itchy Eyes Verified 03/28/23 10:57 No Known Drug Allergies Allergy Severe none Verified 03/28/23 10:57 Seasonal Allergies Allergy Intermediate snee Verified 03/28/23 10:57 pineapple Allergy Itching Verified 03/28/23 10:57 Assessment & Plan Assessment & Plan (1) Schizoaffective disorder: Status: Acute Code(s): F25.9 - Schizoaffective disorder, unspecified Plan 03/30: start haldol 5 BID, benadryl 25 BID, and trazodone 50 QHS. DC adderall and ambien. T/C antidepressant once psychosis is better addressed. ativan per [facility] protocol for alcohol detox; unclear if necessary, but will start for now to clarify. 03/31: appears sedated. scored 4 on CIWA. reschedule all meds at HS. otherwise continue current mgmt. 04/01 increase haldol due to paranoia delusions and psychosis. Reason for continued inpatient stay Substantial Risk for: inability to function Time Spent With Patient Time: Total time managing care of this patient today ____ minutes.
[2023-04-02 19:45] VITALS: BP 131/76; PULSE 115; RESP 15; TEMP 36.8; O2SAT 95
[2023-04-02] MEDS: traZODone HCL 50 MG TABLET PO (20:19)
[2023-04-02] MEDS: HaloperidoL 5 MG TABLET 10 MG PO (20:20)
[2023-04-02] MEDS: diphenhydrAMINE HCL 25 MG CAPSULE 50 MG PO (20:20)
[2023-04-03 07:40] VITALS: BP 132/63; PULSE 106; RESP 16; TEMP 36.8; O2SAT 95
[2023-04-03] MEDS: guaiFENesin DM 100/10/5 ML 5 ML SYRUP PO (09:46)
[2023-04-03] MEDS: Nicotine 21 MG PATCH.TD24 TRANSDERMA (09:47)
[2023-04-03 10:30] LABS: Influenza A PCR NEGATIVE (Negative); Influenza B PCR NEGATIVE (Negative); Resp Syncy Virus RNA Qual PCR NEGATIVE (Negative); SARS COV2 PCR INHOUSE NEGATIVE (Negative)
[2023-04-03] MEDS: Throat Lozenge, Medicated LOZENGE 1 LOZENGE MUCOUS MEM (11:46)
[2023-04-03] MEDS: Magnesium Hydrox/Alum Hydrox 30 ML ORAL.SUSP PO (19:18)
[2023-04-03 19:50] VITALS: BP 149/90; PULSE 131; RESP 16; TEMP 36.5; O2SAT 96
[2023-04-03] MEDS: traZODone HCL 50 MG TABLET PO ×2 (20:21→21:23)
[2023-04-03] MEDS: clonazePAM 0.5 MG TABLET PO (20:21)
[2023-04-03] MEDS: HaloperidoL 5 MG TABLET 10 MG PO (20:21)
[2023-04-03] MEDS: diphenhydrAMINE HCL 25 MG CAPSULE 50 MG PO (20:21)
--- NOTE | 2023-04-03 20:30 | HO.PSYCHPN ---
Subjective Subjective Date of Service: 04/03/23 Reason For Visit: Psychosis Subjective Notes: Conditional Voluntary Interim History: Pt presents as paranoid, reports hearing voices telling him that someone is trying to harm him and that while he is here on the unit, someone is breaking into his apartment. He asks abruptly to be discharged today as he wants to see who is getting in his apartment. He denied SI/HI. He did agree to increase haldol add morning dose. continues to report sore throat and not feeling well. ordered flu/rsv/covid. afebrile. Review of Systems Review of Systems No fever no chills no chest pain Positive foreign body to the left ear Yes all other systems are reviewed and are negative Mental Status Exam Mental Status Exam Narrative: multiple face piercings, obese. calm, cooperative. no PMA/PMR. speech decr rate, amount. soft, flattened tone. incr latency of response. thoughts linear and logical. affect blunted. mood not assessed. no SI/SIBI/HI/AVH expressed. Diagnostics Vital Signs (24Hr): Vital Signs - 24 hr 04/03/23 07:40 Temperature 98.2 F Pulse Rate 106 H Respiratory Rate 16 Blood Pressure 132/63 Pulse Oximetry 95 Oxygen Delivery Method Room Air BMI result Body Mass Index 43.7 Labs 03/28/23 11:38 03/28/23 11:38 Labs: Laboratory Results - last 48 hr 04/02/23 04/02/23 04/03/23 09:38 11:08 09:35 Influenza Type A (PCR) NEGATIVE Influenza Type B (PCR) NEGATIVE RSV RNA Qual (PCR) NEGATIVE SARS-CoV-2 RNA (RT-PCR) NEGATIVE S. pyogenes GrpA MARÍA Invalid Negative Medications Medications Current Medications Acetaminophen (Acetaminophen 325 Mg Tablet) 650 mg PO Q6H PRN PRN Reason: Headache/Pain Mild Scale (1-3) Last Admin: 04/02/23 03:30 Dose: 650 mg Al Hydroxide/Mg Hydroxide (Magnesium Hydrox/Alum Hydrox 30 Ml Oral.Susp) 30 ml PO Q6H PRN PRN Reason: Heartburn/Nausea Last Admin: 04/03/23 19:18 Dose: 30 ml Albuterol Sulfate (Albuterol Sulfate 90 Mcg 8 Gm Inhaler) 2 puff INHALE RQ4H PRN PRN Reason: shortness of breath or wheezing Benzocaine (Throat Lozenge, Medicated Lozenge) 1 lozenge MUCOUS MEM Q2H PRN PRN Reason: Sore Throat Last Admin: 04/03/23 11:46 Dose: 1 lozenge Clonazepam (Clonazepam 0.5 Mg Tablet) 0.5 mg PO BID [facility] Last Admin: 04/03/23 20:21 Dose: 0.5 mg Diphenhydramine HCl (Diphenhydramine Hcl 25 Mg Capsule) 50 mg PO BEDTIME [facility] Last Admin: 04/03/23 20:21 Dose: 50 mg Guaifenesin/Dextromethorphan (Guaifenesin Dm 100/10/5 Ml 5 Ml Syrup) 5 ml PO Q6H PRN PRN Reason: cough/congestion Last Admin: 04/03/23 09:46 Dose: 5 ml Haloperidol (Haloperidol 5 Mg Tablet) 10 mg PO BEDTIME [facility] Last Admin: 04/03/23 20:21 Dose: 10 mg Haloperidol (Haloperidol 5 Mg Tablet) 5 mg PO DAILY [facility] Last Admin: 04/03/23 09:50 Dose: Not Given Magnesium Hydroxide (Milk Of Magnesia 30 Ml Oral.Susp) 30 ml PO DAILY PRN PRN Reason: Constipation Nicotine (Nicotine 21 Mg Patch.Td24) 21 mg TRANSDERMA DAILY [facility] Last Admin: 04/03/23 09:47 Dose: 21 mg Nicotine Polacrilex (Nicotine Polacrilex 2 Mg Gum) 4 mg BUCCAL Q2H PRN PRN Reason: Nicotine Cravings Olanzapine (Olanzapine Odt 10 Mg Tab.Rapdis) 10 mg TRANSLINGU Q6H PRN PRN Reason: agitation Trazodone HCl (Trazodone Hcl 50 Mg Tablet) 50 mg PO BEDTIME MRX1 PRN PRN Reason: Insomnia Last Admin: 04/01/23 01:42 Dose: 50 mg Trazodone HCl (Trazodone Hcl 50 Mg Tablet) 50 mg PO BEDTIME [facility] Last Admin: 04/03/23 20:21 Dose: 50 mg Allergies Allergies Allergy/AdvReac Type Severity Reaction Status Date / Time cat dander Allergy Severe Itchy Eyes Verified 03/28/23 10:57 No Known Drug Allergies Allergy Severe none Verified 03/28/23 10:57 Seasonal Allergies Allergy Intermediate snee Verified 03/28/23 10:57 pineapple Allergy Itching Verified 03/28/23 10:57 Assessment & Plan Assessment & Plan (1) Schizoaffective disorder: Status: Acute Code(s): F25.9 - Schizoaffective disorder, unspecified Plan 03/30: start haldol 5 BID, benadryl 25 BID, and trazodone 50 QHS. DC adderall and ambien. T/C antidepressant once psychosis is better addressed. ativan per CIWA protocol for alcohol detox; unclear if necessary, but will start for now to clarify. 03/31: appears sedated. scored 4 on CIWA. reschedule all meds at HS. otherwise continue current mgmt. 04/01 increase haldol. throat culture sore throat 04/02 pt reports congestion, added rsv/flu/covid. continues to present as very paranoid and psychotic. Reason for continued inpatient stay Substantial Risk for: inability to function Time Spent With Patient Time: Total time managing care of this patient today ____ minutes.
[2023-04-03] MEDS: Dry Mouth Spray 60 ML SPRAY 1 SPRAY MUCOUS MEM (21:18)
[2023-04-03] MEDS: OLANZapine ODT 10 MG TAB.RAPDIS TRANSLINGU (21:23)
[2023-04-04] MEDS: Dry Mouth Spray 60 ML SPRAY 1 SPRAY MUCOUS MEM ×2 (03:05→11:46)
[2023-04-04] MEDS: Throat Lozenge, Medicated LOZENGE 1 LOZENGE MUCOUS MEM (04:54)
[2023-04-04] MEDS: guaiFENesin DM 100/10/5 ML 5 ML SYRUP PO (04:54)
[2023-04-04] MEDS: Acetaminophen 325 MG TABLET 650 MG PO ×3 (04:54→20:01)
--- NOTE | 2023-04-04 08:09 | HO.PSYCHPN ---
Subjective Subjective Date of Service: 04/03/23 Reason For Visit: Psychosis Interim History: Pt presents as paranoid, reports hearing voices telling him that someone is trying to harm him and that while he is here on the unit, someone is breaking into his apartment. He asks abruptly to be discharged today as he wants to see who is getting in his apartment. He denied SI/HI. He did agree to increase haldol add morning dose. continues to report sore throat and not feeling well. ordered flu/rsv/covid. afebrile. Review of Systems Review of Systems No fever no chills no chest pain Positive foreign body to the left ear Yes all other systems are reviewed and are negative Mental Status Exam Mental Status Exam Narrative: multiple face piercings, obese. calm, cooperative. no PMA/PMR. speech decr rate, amount. soft, flattened tone. incr latency of response. thoughts linear and logical. affect blunted. mood not assessed. no SI/SIBI/HI/AVH expressed. Diagnostics Vital Signs (24Hr): Vital Signs - 24 hr 04/03/23 19:50 Temperature 97.7 F Pulse Rate 131 H Respiratory Rate 16 Blood Pressure 149/90 H Pulse Oximetry 96 Oxygen Delivery Method Room Air BMI result Body Mass Index 43.7 Labs 03/28/23 11:38 03/28/23 11:38 Labs: Laboratory Results - last 48 hr 04/02/23 04/02/23 04/03/23 09:38 11:08 09:35 Influenza Type A (PCR) NEGATIVE Influenza Type B (PCR) NEGATIVE RSV RNA Qual (PCR) NEGATIVE SARS-CoV-2 RNA (RT-PCR) NEGATIVE S. pyogenes GrpA MARÍA Invalid Negative Medications Medications Current Medications Acetaminophen (Acetaminophen 325 Mg Tablet) 650 mg PO Q6H PRN PRN Reason: Headache/Pain Mild Scale (1-3) Last Admin: 04/04/23 04:54 Dose: 650 mg Al Hydroxide/Mg Hydroxide (Magnesium Hydrox/Alum Hydrox 30 Ml Oral.Susp) 30 ml PO Q6H PRN PRN Reason: Heartburn/Nausea Last Admin: 04/03/23 19:18 Dose: 30 ml Albuterol Sulfate (Albuterol Sulfate 90 Mcg 8 Gm Inhaler) 2 puff INHALE RQ4H PRN PRN Reason: shortness of breath or wheezing Benzocaine (Throat Lozenge, Medicated Lozenge) 1 lozenge MUCOUS MEM Q2H PRN PRN Reason: Sore Throat Last Admin: 04/04/23 04:54 Dose: 1 lozenge Clonazepam (Clonazepam 0.5 Mg Tablet) 0.5 mg PO BID [facility] Last Admin: 04/03/23 20:21 Dose: 0.5 mg Diphenhydramine HCl (Diphenhydramine Hcl 25 Mg Capsule) 50 mg PO BEDTIME [facility] Last Admin: 04/03/23 20:21 Dose: 50 mg Guaifenesin/Dextromethorphan (Guaifenesin Dm 100/10/5 Ml 5 Ml Syrup) 5 ml PO Q6H PRN PRN Reason: cough/congestion Last Admin: 04/04/23 04:54 Dose: 5 ml Haloperidol (Haloperidol 5 Mg Tablet) 10 mg PO BEDTIME [facility] Last Admin: 04/03/23 20:21 Dose: 10 mg Haloperidol (Haloperidol 5 Mg Tablet) 5 mg PO DAILY [facility] Last Admin: 04/03/23 09:50 Dose: Not Given Magnesium Hydroxide (Milk Of Magnesia 30 Ml Oral.Susp) 30 ml PO DAILY PRN PRN Reason: Constipation Nicotine (Nicotine 21 Mg Patch.Td24) 21 mg TRANSDERMA DAILY [facility] Last Admin: 04/03/23 09:47 Dose: 21 mg Nicotine Polacrilex (Nicotine Polacrilex 2 Mg Gum) 4 mg BUCCAL Q2H PRN PRN Reason: Nicotine Cravings Olanzapine (Olanzapine Odt 10 Mg Tab.Rapdis) 10 mg TRANSLINGU Q6H PRN PRN Reason: agitation Last Admin: 04/03/23 21:23 Dose: 10 mg Saliva Substitute (Dry Mouth [place] 60 Ml [place]) 1 spray MUCOUS MEM Q2H PRN PRN Reason: Dry Mouth Last Admin: 04/04/23 03:05 Dose: 1 spray Trazodone HCl (Trazodone Hcl 50 Mg Tablet) 50 mg PO BEDTIME MRX1 PRN PRN Reason: Insomnia Last Admin: 04/03/23 21:23 Dose: 50 mg Trazodone HCl (Trazodone Hcl 50 Mg Tablet) 50 mg PO BEDTIME [facility] Last Admin: 04/03/23 20:21 Dose: 50 mg Allergies Allergies Allergy/AdvReac Type Severity Reaction Status Date / Time cat dander Allergy Severe Itchy Eyes Verified 03/28/23 10:57 No Known Drug Allergies Allergy Severe none Verified 03/28/23 10:57 Seasonal Allergies Allergy Intermediate snee Verified 03/28/23 10:57 pineapple Allergy Itching Verified 03/28/23 10:57 Assessment & Plan Assessment & Plan (1) Schizoaffective disorder: Status: Acute Code(s): F25.9 - Schizoaffective disorder, unspecified Plan 03/30: start haldol 5 BID, benadryl 25 BID, and trazodone 50 QHS. DC adderall and ambien. T/C antidepressant once psychosis is better addressed. ativan per [facility] protocol for alcohol detox; unclear if necessary, but will start for now to clarify. 03/31: appears sedated. scored 4 on CIWA. reschedule all meds at HS. otherwise continue current mgmt. 04/01 increase haldol. throat culture sore throat 04/02 pt reports congestion, added rsv/flu/covid. continues to present as very paranoid and psychotic. 04/03 continue tx. Reason for continued inpatient stay Substantial Risk for: inability to function Time Spent With Patient Time: Total time managing care of this patient today ____ minutes.
[2023-04-04] MEDS: HaloperidoL 5 MG TABLET PO ×2 (09:26→17:16)
[2023-04-04] MEDS: clonazePAM 0.5 MG TABLET PO ×2 (09:26→20:01)
[2023-04-04] MEDS: Nicotine 21 MG PATCH.TD24 TRANSDERMA (09:26)
--- NOTE | 2023-04-04 14:00 | HO.PSYCHPN ---
Subjective Subjective Date of Service: 04/04/23 Reason For Visit: Psychosis Interim History: hypersomnolent. c/o daytime sedation, dry mouth. agrees to DC olanzapine and use haldol only for anti-psychotic. agrees to sleep study. per staff, 30-day up . denies AVH but seeing things in pictures. sleeping in sensory room. slept about 7 hours. planning to discharge . Mental Status Exam Mental Status Exam Narrative: multiple face piercings, obese. calm, cooperative. no PMA/PMR. speech decr rate, amount. soft, flattened tone. incr latency of response. thoughts linear and logical. affect blunted. mood not assessed. no SI/SIBI/HI/AVH expressed. Diagnostics Vital Signs (24Hr): Vital Signs - 24 hr 04/03/23 19:50 Temperature 97.7 F Pulse Rate 131 H Respiratory Rate 16 Blood Pressure 149/90 H Pulse Oximetry 96 Oxygen Delivery Method Room Air BMI result Body Mass Index 43.7 Labs 03/28/23 11:38 03/28/23 11:38 Labs: Laboratory Results - last 48 hr 04/03/23 09:35 Influenza Type A (PCR) NEGATIVE Influenza Type B (PCR) NEGATIVE RSV RNA Qual (PCR) NEGATIVE SARS-CoV-2 RNA (RT-PCR) NEGATIVE Medications Medications Current Medications Acetaminophen (Acetaminophen 325 Mg Tablet) 650 mg PO Q6H PRN PRN Reason: Headache/Pain Mild Scale (1-3) Last Admin: 04/04/23 11:46 Dose: 650 mg Al Hydroxide/Mg Hydroxide (Magnesium Hydrox/Alum Hydrox 30 Ml Oral.Susp) 30 ml PO Q6H PRN PRN Reason: Heartburn/Nausea Last Admin: 04/03/23 19:18 Dose: 30 ml Albuterol Sulfate (Albuterol Sulfate 90 Mcg 8 Gm Inhaler) 2 puff INHALE RQ4H PRN PRN Reason: shortness of breath or wheezing Benzocaine (Throat Lozenge, Medicated Lozenge) 1 lozenge MUCOUS MEM Q2H PRN PRN Reason: Sore Throat Last Admin: 04/04/23 04:54 Dose: 1 lozenge Clonazepam (Clonazepam 0.5 Mg Tablet) 0.5 mg PO BID [facility] Last Admin: 04/04/23 09:26 Dose: 0.5 mg Diphenhydramine HCl (Diphenhydramine Hcl 25 Mg Capsule) 50 mg PO BEDTIME [facility] Last Admin: 04/03/23 20:21 Dose: 50 mg Guaifenesin/Dextromethorphan (Guaifenesin Dm 100/10/5 Ml 5 Ml Syrup) 5 ml PO Q6H PRN PRN Reason: cough/congestion Last Admin: 04/04/23 04:54 Dose: 5 ml Haloperidol (Haloperidol 5 Mg Tablet) 10 mg PO BEDTIME [facility] Last Admin: 04/03/23 20:21 Dose: 10 mg Haloperidol (Haloperidol 5 Mg Tablet) 5 mg PO DAILY [facility] Last Admin: 04/04/23 09:26 Dose: 5 mg Haloperidol (Haloperidol 5 Mg Tablet) 5 mg PO Q4H PRN PRN Reason: agitation or insomnia Magnesium Hydroxide (Milk Of Magnesia 30 Ml Oral.Susp) 30 ml PO DAILY PRN PRN Reason: Constipation Nicotine (Nicotine 21 Mg Patch.Td24) 21 mg TRANSDERMA DAILY [facility] Last Admin: 04/04/23 09:26 Dose: 21 mg Nicotine Polacrilex (Nicotine Polacrilex 2 Mg Gum) 4 mg BUCCAL Q2H PRN PRN Reason: Nicotine Cravings Saliva Substitute (Dry Mouth [place] 60 Ml [place]) 1 spray MUCOUS MEM Q2H PRN PRN Reason: Dry Mouth Last Admin: 04/04/23 11:46 Dose: 1 spray Trazodone HCl (Trazodone Hcl 50 Mg Tablet) 50 mg PO BEDTIME MRX1 PRN PRN Reason: Insomnia Last Admin: 04/03/23 21:23 Dose: 50 mg Trazodone HCl (Trazodone Hcl 50 Mg Tablet) 50 mg PO BEDTIME [facility] Last Admin: 04/03/23 20:21 Dose: 50 mg Allergies Allergies Allergy/AdvReac Type Severity Reaction Status Date / Time cat dander Allergy Severe Itchy Eyes Verified 03/28/23 10:57 No Known Drug Allergies Allergy Severe none Verified 03/28/23 10:57 Seasonal Allergies Allergy Intermediate snee Verified 03/28/23 10:57 pineapple Allergy Itching Verified 03/28/23 10:57 Assessment & Plan Assessment & Plan (1) Schizoaffective disorder: Status: Acute Code(s): F25.9 - Schizoaffective disorder, unspecified Plan 03/30: start haldol 5 BID, benadryl 25 BID, and trazodone 50 QHS. DC adderall and ambien. T/C antidepressant once psychosis is better addressed. ativan per [facility] protocol for alcohol detox; unclear if necessary, but will start for now to clarify. 03/31: appears sedated. scored 4 on CIWA. reschedule all meds at HS. otherwise continue current mgmt. 04/01 increase haldol. throat culture sore throat 04/02 pt reports congestion, added rsv/flu/covid. continues to present as very paranoid and psychotic. 04/03 continue tx. 04/04: DC olanzapine as likely causing dry mouth and daytime sedation. sleep study for [facility]. make haldol PRNs available. 3-day up . planning to DC . Reason for continued inpatient stay Substantial Risk for: inability to function and rapid decompensation Time Spent With Patient Time: Total time managing care of this patient today __25__ minutes.
[2023-04-04 18:00] VITALS: BP 134/79; PULSE 109; RESP 20; TEMP 36.5; O2SAT 95
[2023-04-04] MEDS: diphenhydrAMINE HCL 25 MG CAPSULE 50 MG PO (20:00)
[2023-04-04] MEDS: HaloperidoL 5 MG TABLET 10 MG PO (20:00)
[2023-04-04] MEDS: traZODone HCL 50 MG TABLET PO (20:01)
--- NOTE | 2023-04-04 22:11 | PC.RT ---
RN states that patient is refusing sleep study. Patient is asleep now but RN and patient's sister both tried to talk him into it. Patient was agitated and wanted nothing to do with it. I went to show patient what a study would initial but he is now asleep and RN did not want him woken up
[2023-04-05] MEDS: HaloperidoL 5 MG TABLET PO (04:38)
--- NOTE | 2023-04-05 06:30 | MHC.RECOVSUP ---
sleep study ended
--- NOTE | 2023-04-05 06:31 | PC.RT ---
sleep study ended, pt was asleep
[2023-04-05 07:44] VITALS: BP 137/89; PULSE 114; RESP 16; TEMP 36.5; O2SAT 98
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
[2023-04-05] MEDS: Milk of Magnesia 30 ML ORAL.SUSP PO (13:31)
[2023-04-05 19:35] VITALS: BP 142/72; PULSE 113; RESP 16; TEMP 36.7; O2SAT 97
[2023-04-05] MEDS: diphenhydrAMINE HCL 25 MG CAPSULE 50 MG PO (20:12)
[2023-04-05] MEDS: HaloperidoL 5 MG TABLET 10 MG PO (20:12)
[2023-04-05] MEDS: clonazePAM 0.5 MG TABLET PO (20:12)
[2023-04-05] MEDS: traZODone HCL 50 MG TABLET PO ×2 (20:12→20:16)
[2023-04-06] MEDS: Throat Lozenge, Medicated LOZENGE 1 LOZENGE MUCOUS MEM ×2 (00:49→06:30)
[2023-04-06] MEDS: traZODone HCL 50 MG TABLET PO (02:35)
[2023-04-06] MEDS: Acetaminophen 325 MG TABLET 650 MG PO (06:30)
[2023-04-06] MEDS: Dry Mouth Spray 60 ML SPRAY 1 SPRAY MUCOUS MEM (06:31)
--- NOTE | 2023-04-06 06:32 | PC.RT ---
Unable to do sleep study last night due to no sitter staff. Pt will still need a sleep study.
[2023-04-06 08:06] VITALS: BP 137/79; PULSE 108; RESP 16; TEMP 36.8; O2SAT 96
[2023-04-06] MEDS: clonazePAM 0.5 MG TABLET PO (08:22)
[2023-04-06] MEDS: HaloperidoL 5 MG TABLET PO (08:22)
[2023-04-06] MEDS: Nicotine 21 MG PATCH.TD24 TRANSDERMA (08:23)
--- NOTE | 2023-04-06 12:22 | PC.RT ---
pt never got sleep study. 1. refused the first time 2. had no staff to watch pt after he decided to get the sleep study done. pt was d/c today from hospital.Will have to do outpatient sleep study.
== END 2023-04-06 10:10 | disposition home or self-care (01) | DRG 885 ==
LOC: HO.ED 13:14 → HO.PADLT16 03-29 15:15
PROVIDERS: Social Worker; Admitting Provider Psychiatry & Neurology Psychiatry; Emergency Provider Emergency Medicine Emergency Medical Services; PCP Internal Medicine; Visit Provider Psychiatry & Neurology Psychiatry
DX: F25.9 Schizoaffective disorder, unspecified (principal); Z20.822 Contact with and (suspected) exposure to COVID-19; Z23 Encounter for immunization; Z79.899 Other long term (current) drug therapy
CPT/HCPCS: 0241U; 36415; 80053; 80307; 81001; 85025; 87070; 87147; 87635; 87651; 90686; 99285; S9485

== ENCOUNTER → 2023-03-29 15:00 | Outpatient (BNV) | payer OTHER, SELFPAY | PROVIDERS: Admitting Provider Psychiatry & Neurology Psychiatry; Emergency Provider Emergency Medicine Emergency Medical Services; PCP Internal Medicine; Visit Provider Psychiatry & Neurology Psychiatry | DX: F25.0 Schizoaffective disorder, bipolar type (principal) | CPT/HCPCS: 90792; 99231; 99232; 99239; 99499 ==

== ENCOUNTER 2023-06-22 10:02 | Outpatient (AMB) | payer OTHER, SELFPAY ==
--- NOTE | 2023-06-22 10:06 | MHC.OFFVIS ---
Vital Signs 06/22/23 10:08 Height 5 ft 11 in Weight 341 lb 11.464 oz BMI 47.7 BP 146/77 H Blood Pressure Location Lt brachial Position Sitting Pulse 101 H Intake Visit Reasons: 6 month follow up Intake Note: Danielle returns to in office 6 months follow up of constipation. CC: Patient c/o LUQ abdominal pain, abdominal bloating, nausea, constipation, and acid reflux. Zoo Veterinarian Required: No Accompanied by: Self / Same As Patient Allergies cat dander Allergy (Severe, Verified 06/22/23 10:09) Itchy Eyes No Known Drug Allergies Allergy (Severe, Verified 06/22/23 10:09) none Seasonal Allergies Allergy (Intermediate, Verified 06/22/23 10:09) snee pineapple Allergy (Verified 06/22/23 10:09) Itching HPI HPI 6 month follow up: Details: Assessment & Plan (1) Chronic constipation: Code(s): K59.09 - Other constipation Plan This patient has been lost to follow-up since 07/2021 He has been using an OTC supplement with psyllium, alisa and aloe that has moved his bowels well. Long discussion re: wt loss, discussed Wegovy but may be contraindicated in bipolar disorder. Also could consider wt mgmt or safety and health manager referral. He wants me to try to rx magnesium, may not be covered (same with fiber). I will try rx both. ROV 6mos. Medications: New psyllium husk (Metamucil) 0.4 grams PO BID PRN 60 caps 6RF constipation K59.09 - Other constipation magnesium oxide 500 mg PO BID 60 caps 6RF K59.09 - Other constipation TODAY'S VISIT . This patient has been lost to follow-up since 07/2021 He is nearly somnolent today. He is having like a gas pain in the LUQ and is constipated. He says his Haldol and clonapin is new. This has been for quite some time. He is also having HB. He says haldol is taken at night but he did not sleep all last night. Took transportation provided by his insurance, did not drive ot take public transporation (worried about his sleepiness). He can't remember if he ever got the fiber or magnesium we discussed last visit. Wants to restart LInzess as this worked well for him in the past. Will restart at 145mcg and titrate. ROV 4 weeks. [facility] Medical History (Updated 07/05/23 @ 12:12 by MONA Segal) Obese Screening for diabetes mellitus (DM) Abdominal pain Abdominal swelling Annual physical exam Upper respiratory infection with cough and congestion Vasectomy evaluation Screening for STD (sexually transmitted disease) Screening for hypercholesterolemia COVID-19 Physical exam COVID-19 Morbid obesity with BMI of 40.0-44.9, adult Schizoaffective disorder, bipolar type Smoker Vitamin D deficiency Pure hypercholesterolemia Elevated LFTs Alcoholism Asthma Surgical History No significant past surgical history Family History Mother No problems noted. Father No problems noted. Social History Household Members: None Housing: Apartment Do you presently have visiting nurse or other home services: No Alcohol intake: current Alcohol intake frequency: holidays/special occasions only Patient Tobacco Use Status: Current someday Tobacco user Tobacco use type: Cigarette Cigarettes Per Day: 5 e-Cigarette/Vaping Use: Never Used Second Hand Smoke Exposure: No Substance Use Type: Marijuana service: No Current occupational status: disabled Sexual orientation: Don't Know Cognitive needs: No Hearing needs: No Vision needs: No Review of Systems Const Denies fatigue, Denies fever(s), Denies night sweats, Denies poor appetite, Reports weight gain and Denies weight loss ENT Reports Normal hearing present, Denies dental pain, Denies dysphagia, Denies hearing loss, Denies mouth pain, Denies odynophagia, Denies throat swelling, Denies tongue swelling and Reports other (Dentition adequate) Card Reports no additional complaints Resp Reports no additional complaints GI Details: Reports abdominal pain, Denies melena, Reports bloating, Denies hematochezia, Reports constipation, Denies GI cramping, Denies dysphagia, Denies excessive flatus, Denies early satiety, Reports heartburn, Denies diarrhea, Denies nausea, Denies odynophagia, Denies vomiting and Denies hematemesis Skin/Breast Denies pruritus, Denies lesions, Denies rash and Denies jaundice Neuro Reports Normal hearing present and Denies Abnormal speech present Endo Denies fatigue Aller/Immun Denies throat swelling and Denies tongue swelling Physical Exam Vital Signs: Last Vital Signs Pulse 101 H 06/22/23 10:08 BP 146/77 H 06/22/23 10:08 BMI result Body Mass Index 47.7 Const General: cooperative, no acute distress, well developed, lethargic, tired appearing and well groomed; No alert Nutritional Appearance: well nourished and obese morbidly obese Orientation/consciousness: oriented to person, oriented to place, oriented to time and lethargic Limitations: No language barrier and other limitations HEENT Head: Yes normocephalic and Yes atraumatic Eyes General: appearance normal, both eyes and all related structures Pupils: Equal, round and reactive pupils present Neck Neck: Yes normal visual inspection and Yes no lymphadenopathy Thyroid: Thyroid normal Resp Effort & Inspection: normal respiratory effort and able to speak in complete sentences Auscultation: clear to auscultation bilaterally Cardio Rate: regular rate Rhythm: regular rhythm Heart sounds: Normal, physiologic split S2 sound present Peripheral pulses: radial pulses present and posterior tibial pulses present GI Inspection: Yes distended, Yes Abdominal panniculus present and Yes obesity Palpation (GI): Soft to palpation, nontender, no guarding, not rigid and No hepatosplenomegaly present Percussion: Yes normal to percussion Auscultation: normal bowel sounds Rectal Exam - Male: Yes deferred Skin General skin exam: no rashes or lesions noted, turgor normal, skin not dry, no jaundice, No spider nevi and no striae Rashes: no rashes Nails: normal Neuro General: oriented to person, oriented to place and oriented to time Cranial nerves: Yes Equal, round and reactive pupils present and Yes Normal hearing present Speech: No Abnormal speech present Extrem General: Yes normal to inspection, No clubbing, No cyanosis and No edema Psych Appearance: grossly normal and well kempt Mental Status: mental status grossly normal Speech and movement: Normal speech and movement present Affect: normal affect Attitude: cooperative Thought process: not confabulating and Impoverished thought process present Thought content: Normal thought content present Insight: Poor insight present (Psych) Judgement: Poor judgement present (Psych) Assessment & Plan Assessment & Plan (1) Chronic constipation: Code(s): K59.09 - Other constipation Category: Medical (2) Abdominal bloating: Code(s): R14.0 - Abdominal distension (gaseous) Category: Medical (3) Heartburn: Code(s): R12 - Heartburn Category: Medical Plan This patient has been lost to follow-up since 07/2021 He is nearly somnolent today. He is having like a gas pain in the LUQ and is constipated. He says his Haldol and clonapin is new. This has been for quite some time. He is also having HB. He says haldol is taken at night but he did not sleep all last night. Took transportation provided by his insurance, did not drive ot take public transporation (worried about his sleepiness). He can't remember if he ever got the fiber or magnesium we discussed last visit. Wants to restart LInzess as this worked well for him in the past. Will restart at 145mcg and titrate. ROV 4 weeks. Medications: New linaclotide (Linzess) 145 mcg PO QAM 30 caps 6RF K59.09 - Other constipation omeprazole 40 mg PO DAILY 30 caps 3RF 30 days Coding Level of Care Code Est Pt Level 4 (33845) Diagnoses Chronic constipation K59.09 Abdominal bloating R14.0 Heartburn R12
[2023-06-22 10:08] VITALS: BP 146/77; PULSE 101; BMI 47.7
== END 2023-06-22 10:34 | disposition home or self-care (01) ==
PROVIDERS: PCP Internal Medicine; Visit Provider Nurse Practitioner
DX: K59.09 Other constipation (principal); R14.0 Abdominal distension (gaseous); R12 Heartburn
CPT/HCPCS: 99214

== ENCOUNTER → 2023-06-22 10:02 | Outpatient (BNVA) | payer OTHER, SELFPAY | PROVIDERS: PCP Internal Medicine; Visit Provider Nurse Practitioner | DX: K59.09 Other constipation (principal); R14.0 Abdominal distension (gaseous); R12 Heartburn | CPT/HCPCS: 99212 ==

== ENCOUNTER 2023-07-13 14:02 | Outpatient (AMB) | payer OTHER, SELFPAY ==
[2023-07-13 14:08] VITALS: BP 140/88; PULSE 104; O2SAT 94; BMI 47.0
--- NOTE | 2023-07-13 14:08 | MHC.PC.OV ---
Vital Signs 07/13/23 14:08 Height 5 ft 11 in Weight 337 lb BMI 47.0 BP 140/88 H Blood Pressure Location Lt brachial Position Sitting Pulse 104 H Pulse Source Pulse Oximeter Pulse Oximetry (%) 94 Oxygen Delivery Method Room Air Intake Visit Reasons: Physical Mud Analysis Supervisor Required: No Applications Processor: Not Required per policy Accompanied by: Self / Same As Patient Allergies cat dander Allergy (Severe, Verified 02/25/25 14:00) Itchy Eyes No Known Drug Allergies Allergy (Severe, Verified 02/25/25 14:00) none Seasonal Allergies Allergy (Intermediate, Verified 02/25/25 14:00) snee pineapple Allergy (Verified 02/25/25 14:00) Itching aripiprazole (From [facility]) Adverse Reaction (Intermediate, Verified 02/25/25 14:00) Swelling of leg Medication List - Last Reconciled 07/13/23 by Livan Roslaes MD acamprosate 333 mg PO BID 30 days albuterol sulfate 90 mcg/actuation 2 puffs inhalation Q4-6H PRN 30 days albuterol sulfate 2.5 mg (3 mL) inhalation Q4-6H PRN clonazepam 0.5 mg PO BID 30 days diphenhydramine HCl 50 mg (2 x 25 mg) PO BEDTIME 30 days furosemide 40 mg PO QAM PRN 30 days linaclotide (Linzess) 145 mcg PO QAM nebulizers (Aeroneb Go Nebulizer) As directed nicotine (Nicoderm CQ) 1 patch transdermal DAILY 28 days nicotine (polacrilex) 4 mg buccal Q2H PRN 30 days omeprazole 40 mg PO DAILY 30 days tizanidine 4 mg PO TID trazodone 50 mg PO BEDTIME 30 days Tobacco use date assessed: 03/22/23 Dental Screening Dental Screen Date: 03/22/23 HPI Physical HPI Details Patient comes in today for his annual physical examination States that he stopped taking most of his psychiatry meds, especially his Haldol, a few weeks ago as he noticed that he has gained a lot of weight since he was started on them back in March 2023, when he presented to the ER with paranoid thoughts and suicidal ideations He was started then on Haldol, Trazodone and Benadryl; Adderall and Ambien were discontinued States that he recently discharged himself from his psychiatrist at [facility] and is now looking for a new psychiatrist - will need new referral States that since he stopped taking his Rx, he has been struggling again and continues to have weird thoughts but he currently denies any intention of self-harm States that he has also been experiencing increased alcohol cravings again recently and would like to get something to help calm the cravings down He has swelled up a lot as well recently and his skin has turned darker in shade, expecially the skin on both of his hands - thinks that these are mostly due to his fluid retention and would like to get back on his medication to help him urinate and get rid of his excess fluids He denies any increased headaches or dizziness Denies any chest pains, no increased SOB No nausea/vomiting, no abdominal pain No change in bowel habits noted He denies any acute urinary symptoms Would also like to get a referral to the weight management program here at [facility] [place] - states that he has read about the program recently and was impressed by what it says - that they can help people lose as much as 30 pounds or more in a few months [facility] Medical History (Updated 02/26/25 @ 06:07 by Livan Rosales MD) Morbid obesity with BMI of 50.0-59.9, adult Rupture of left patellar tendon GERD without esophagitis Schizoaffective disorder Dyspnea Vasectomy evaluation Chronic constipation Obesity (BMI 30-39.9) Morbid obesity with BMI of 40.0-44.9, adult Abdominal pain Abdominal swelling Vasectomy evaluation Schizoaffective disorder, bipolar type Smoker Vitamin D deficiency Pure hypercholesterolemia Elevated LFTs Alcoholism Asthma Surgical History History of surgery on lower extremity No significant past surgical history Family History Mother No problems noted. Father No problems noted. Social History Household Members: None Household Members Other:: none Housing: Apartment Do you presently have visiting nurse or other home services: No Alcohol intake: current Alcohol intake frequency: 3 or more drinks per day Alcohol type: beer and hard liquor Patient Tobacco Use Status: Current everyday Tobacco user Tobacco use type: Cigarette Cigarette Packs Per Day: 0.5 Cigarettes Per Day: 10 e-Cigarette/Vaping Use: Former Use Second Hand Smoke Exposure: Yes Substance Use Type: Marijuana service: No Current occupational status: disabled Sexual orientation: Don't Know Cognitive needs: No Hearing needs: No Vision needs: No Questionnaire Thrive Questionnaire Date Thrive assessed: 03/30/23 KITTY-7 AMB Questionnaire KITTY-7 Date KITTY - 7 assessed: 03/22/23 Source: Developed by Drs. Zay Lopez, Tonya Ornelas, Holger Bourgeois and colleagues, with an educational suellen from [employer] Review of Systems Const Denies chills, Reports difficulty sleeping (Trazodone helps somewhat), Reports fatigue, Denies fever(s), Denies headache(s), Denies malaise and Denies weakness Eyes Denies blurry vision, Denies change in vision, Denies irritation and Denies itchy eyes ENT Denies dysphagia, Denies dizziness, Denies otalgia, Denies headache(s), Denies nasal congestion, Denies neck pain, Denies odynophagia and Denies sore throat Card Denies chest pain, Denies rapid heart rate, Denies irregular heart rhythm, Denies palpitations and Reports dyspnea on exertion (mild) Resp Denies chest congestion, Denies cough, Reports dyspnea on exertion (mild) and Denies wheezing GI Denies abdominal pain, Denies bloating, Reports constipation (is on Rx), Denies dysphagia, Denies heartburn, Denies diarrhea, Denies nausea, Denies odynophagia and Denies vomiting Denies hematuria, Denies difficulty urinating, Denies dysuria, Denies urinary frequency and Denies urinary urgency Musc Reports back pain, Denies arthralgias, Denies joint swelling, Denies muscle weakness and Denies neck pain Skin/Breast Denies change in pigmentation, Denies lesions, Denies rash and Denies unusual bruising Neuro Denies dizziness, Denies headache(s), Denies paresthesias and Denies weakness Psych Reports anxiety (increased), Reports depression, Reports difficulty concentrating, Reports auditory hallucinations, Denies homicidal ideation and Denies suicidal ideation Endo Reports fatigue and Denies palpitations Aller/Immun Denies itchy eyes and Denies wheezing Physical exam (Primary Care) Vital Signs: Last Vital Signs Pulse 104 H 07/13/23 14:08 BP 140/88 H 07/13/23 14:08 Pulse Ox 94 07/13/23 14:08 Oxygen Delivery Method Room Air 07/13/23 14:08 BMI result Body Mass Index 47.0 Tobacco/Smoking Status: Tobacco use Status Tobacco use date assessed 03/22/23 07/13/23 14:09 Patient Tobacco Use Status Current someday Tobacco 07/13/23 14:09 Tobacco use type Cigarette 07/13/23 14:09 e-Cigarette/Vaping Use Never Used 07/13/23 14:09 Thrive Assessment: Date of Thrive Assessment Date Thrive assessed 03/30/23 07/13/23 14:09 Const General: no acute distress, alert and awake Orientation/consciousness: patient oriented x3 HENMT Head: Yes normocephalic and Yes atraumatic Ears: external ears normal, TM's normal bilaterally and EAC's normal General nose exam: No nasal discharge present Face and sinus: Yes normal facial exam and Yes sinuses nontender Teeth and gingiva: dentition normal Throat: Yes posterior oropharynx normal and Yes tonsils normal (no TP congestion) Eyes Eyelids: Yes eyelids normal Conjunctivae: conjunctivae normal Pupils: Equal, round and reactive pupils present EOM: EOMs intact bilaterally Neck Neck: Yes no lymphadenopathy and Yes supple Thyroid: Thyroid normal Resp Auscultation: clear to auscultation bilaterally, no rales and no wheezes Cardio Rate: regular rate Rhythm: regular rhythm Heart sounds: no murmurs GI Palpation (GI): Soft to palpation, nontender and No hepatosplenomegaly present Auscultation: normal bowel sounds General: Yes no CVA tenderness Back/Spine/Pelvis Back: no CVA tenderness Thoracic/Lumbar Spine: thoracic and lumbar spine normal to inspection Skin Lesions: no lesions Rashes: no rashes (but skin on hands look dusky/darker than usual) Neuro General: patient oriented x3, moves all extremities, no focal motor deficits and CN's II-XI intact bilaterally Cranial nerves: Yes Equal, round and reactive pupils present Cognition (Neuro): normal cognition Gait exam (Neuro): Normal gait present Extrem General: No clubbing, No cyanosis and Yes edema (2+, bipedal) Psych Thought content: suicidality Coding Level of Care Code Est Pt Prev Care 18-39y(32487) Diagnoses Annual physical exam Z00.00 Generalized edema R60.1 Edema type: generalized Mild intermittent asthma without complication J45.20 Asthma severity: mild Asthma persistence: intermittent Asthma complication type: uncomplicated Chronic constipation K59.09 Vitamin D deficiency E55.9 Exertional dyspnea R06.09 Midline low back pain without sciatica, unspecified chronicity M54.50 Chronicity: unspecified Back pain laterality: midline Sciatica presence: without sciatica Alcoholism F10.20 Schizoaffective disorder, bipolar type F25.0 Smoker F17.200 Morbid obesity with BMI of 45.0-49.9, adult E66.01; Z68.42
== END 2023-07-13 14:47 | disposition home or self-care (01) ==
PROVIDERS: PCP Internal Medicine; Visit Provider Internal Medicine
DX: Z00.00 Encounter for general adult medical examination without abnormal findings (principal); R60.1 Generalized edema; J45.20 Mild intermittent asthma, uncomplicated; K59.09 Other constipation; E55.9 Vitamin D deficiency, unspecified; R06.09 Other forms of dyspnea; M54.50 Low back pain, unspecified; F10.20 Alcohol dependence, uncomplicated; F25.0 Schizoaffective disorder, bipolar type; F17.200 Nicotine dependence, unspecified, uncomplicated; E66.01 Morbid (severe) obesity due to excess calories; Z68.42 Body mass index [BMI] 45.0-49.9, adult
CPT/HCPCS: 99499

== ENCOUNTER 2023-07-14 06:03 | Outpatient (REF) | payer OTHER, SELFPAY ==
[2023-07-14 06:15] LABS: MANUAL DIFF FLAG NO
[2023-07-14 07:40] LABS: Basophils Percent Auto 0.6 % (0-2); Eosinophils Absolute Auto 0.2 X10*3/uL (0.0-0.4); Hematocrit 46.2 % (42.0-52.0); Hemoglobin 15.2 g/dl (14.0-18.0); Imm Gran Abs Auto 0.01 X10*3/uL (0.00-0.03); Imm Gran Pct Auto 0.2 % (0.0-0.4); Lymphocytes Absolute Auto 2.1 X10*3/uL (1.2-4.9); Lymphocytes Percent Auto 42.5 % (20-40); Mean Corpuscular HGB Conc 32.9 g/dl (31.0-36.0); Mean Corpuscular Hemoglobin 26.7 pg (27.0-33.0); Mean Corpuscular Volume 81.1 fL (80.0-98.0); Monocytes Absolute Auto 0.4 X10*3/uL (0.1-1.2); Monocytes Percent Auto 7.6 % (2-11); Neutrophils Absolute Auto 2.3 x10*3/uL (2.0-8.3); Neutrophils Percent Auto 45.1 % (45-73); Platelet Count 311 X10*3/uL (160-400); Red Cell Distribution Width 14.4 % (11.0-16.0)
[2023-07-14 07:50] LABS: Estimated Average Glucose 143 mg/dL; Hemoglobin A1c % 6.6 % (<6.0)
[2023-07-14 08:06] LABS: Alanine Aminotransferase 45 U/L (0-40); Albumin Level 3.9 g/dL (3.5-5.0); Alkaline Phosphatase 74 U/L (39-117); Anion Gap 13 (12-20); Aspartate Amino Transferase 29 U/L (5-37); Bilirubin Total 0.3 mg/dL (0.0-1.0); Blood Urea Nitrogen 7 mg/dL (9-16); Calcium 9.3 mg/dL (8.4-10.2); Carbon Dioxide 24 mmol/L (22-29); Chloride 108 mmol/L (96-108); Cholesterol 227 mg/dL (<200); Estimated Glomerular Filt Rate > 60; Glucose Fasting 113 mg/dL (60-99); HDL Cholesterol 59 mg/dL (>40); LDL Cholesterol Calculated 148 mg/dL (<100); Potassium 3.9 mmol/L (3.3-5.1); Sodium 141 mmol/L (135-145); Total Protein 7.5 g/dL (6.5-8.0); Triglycerides 103 mg/dL (<150)
[2023-07-14 08:17] LABS: Appearance Urine Clear; Color Urine Yellow; Glucose Urine UA Negative (Negative); Leukocyte Esterase Urine Negative (Negative); Nitrite Urine Negative (Negative); PH 6.5 (5.0-9.0); Urine Blood Negative (Negative); Urine Ketones Negative (Negative); Urine Protein Negative (Neg-Trace)
[2023-07-14 08:26] LABS: TSH reflex Free T4 0.94 uIU/mL (0.32-4.0); Vitamin D 25-OH Total 24.2 ng/mL (>30)
[2023-07-14 08:31] LABS: Folate 9.1 ng/mL (> or = 4.0); Vitamin B12 420 pg/mL (200-900)
[2023-07-19 20:43] LABS: Testosterone, Free 44.5 pg/mL (35.0-155.0); Testosterone, Total 318 ng/dL (250-1100)
== END 2023-07-14 06:04 | disposition home or self-care (01) ==
LOC: HO.LAB 06:03
PROVIDERS: PCP Internal Medicine; Visit Provider Internal Medicine
DX: D64.9 Anemia, unspecified (principal); R63.5 Abnormal weight gain; R79.89 Other specified abnormal findings of blood chemistry; E55.9 Vitamin D deficiency, unspecified; R30.0 Dysuria; E78.00 Pure hypercholesterolemia, unspecified; E53.8 Deficiency of other specified B group vitamins; R73.01 Impaired fasting glucose
CPT/HCPCS: 36415; 80053; 80061; 81003; 82306; 82607; 82746; 83036; 84402; 84403; 84443; 85025

== ENCOUNTER 2023-09-06 09:19 | Outpatient (AMB) | payer OTHER, SELFPAY ==
[2023-09-06 09:22] VITALS: BP 140/98; PULSE 115; O2SAT 96; BMI 47.7
--- NOTE | 2023-09-06 09:22 | MHC.PC.OV ---
Vital Signs 09/06/23 09:22 Height 5 ft 11 in Weight 342 lb 0.4 oz BMI 47.7 BP 140/98 H Blood Pressure Location Lt brachial Position Sitting Pulse 115 H Pulse Source Pulse Oximeter Pulse Oximetry (%) 96 Oxygen Delivery Method Room Air Intake Visit Reasons: follow up Intake Note: Patient is here to follow up Collection Coordinator Required: No Allergies cat dander Allergy (Severe, Verified 09/06/23 09:56) Itchy Eyes No Known Drug Allergies Allergy (Severe, Verified 09/06/23 09:56) none Seasonal Allergies Allergy (Intermediate, Verified 09/06/23 09:56) snee pineapple Allergy (Verified 09/06/23 09:56) Itching Medication List - Last Reconciled 09/06/23 by Livan Rosales MD acamprosate 333 mg PO BID 30 days albuterol sulfate 90 mcg/actuation 2 puffs inhalation Q4-6H PRN 30 days albuterol sulfate 2.5 mg (3 mL) inhalation Q4-6H PRN clonazepam 0.5 mg PO BID 30 days furosemide 40 mg PO QAM PRN 30 days linaclotide (Linzess) 145 mcg PO QAM lorazepam 1 mg PO DAILY PRN nebulizers (Aeroneb Go Nebulizer) As directed nicotine (Nicoderm CQ) 1 patch transdermal DAILY 28 days omeprazole 40 mg PO DAILY 30 days tizanidine 4 mg PO TID trazodone 50 mg PO BEDTIME 30 days Tobacco use date assessed: 03/22/23 Dental Screening Dental Screen Date: 03/22/23 HPI follow up HPI Details Patient comes in today for his follow up visit States that he continues to experience recurrent chest discomfort and pressure - states that this has been going on for a couple of years now and he describes it as a feeling of somebody sitting on his chest when his symptoms occur He had stress testing and echocardiogram done back in December 2021 - stress testing was not completed and it was terminated around 91% due to fatigue and patient request His EKG at the time did not meet ischemic criteria - EKG showed T wave inversions in leads III and V6, slight V5 at baseline and throughout test and recovery. He did have prolonged sinus tachycardia in recovery which gradually improved with relaxation and laying in supine position His echocardiogram was also not completed as patient terminated exam due to not being able to tolerate it - exam did show normal EF and (+) mild to moderate septal hypertrophy, but difficult to assess. There was also a small intraventricular/LVOT gradient with no obvious valvular pathology seen on the study He also currently reports (+) frequent ARMENTA and on and off lower extremity edema that is relieved with oral diuretics He denies any headaches or dizziness lately No nausea/vomiting, no abdominal pain No change in bowel habits noted States that he has not yet received a call from weight management so far and is wondering if he will be a good candidate for the GLP-1s out in the market that can help him lose weight [facility] Medical History (Updated 09/06/23 @ 10:56 by Livan Rosales MD) GERD without esophagitis Schizoaffective disorder Dyspnea Obesity Vasectomy evaluation Abdominal pain Chronic constipation Obesity (BMI 30-39.9) Weight gain Morbid obesity with BMI of 40.0-44.9, adult Annual physical exam Obese Screening for diabetes mellitus (DM) Abdominal pain Abdominal swelling Upper respiratory infection with cough and congestion Vasectomy evaluation Screening for STD (sexually transmitted disease) Screening for hypercholesterolemia COVID-19 Physical exam COVID-19 Schizoaffective disorder, bipolar type Smoker Vitamin D deficiency Pure hypercholesterolemia Elevated LFTs Alcoholism Asthma Surgical History No significant past surgical history Family History Mother No problems noted. Father No problems noted. Social History Household Members: None Housing: Apartment Do you presently have visiting nurse or other home services: No Alcohol intake: current Alcohol intake frequency: holidays/special occasions only Patient Tobacco Use Status: Current someday Tobacco user Tobacco use type: Cigarette Cigarettes Per Day: 5 e-Cigarette/Vaping Use: Never Used Second Hand Smoke Exposure: No Substance Use Type: Marijuana service: No Current occupational status: disabled Sexual orientation: Don't Know Cognitive needs: No Hearing needs: No Vision needs: No Questionnaire Thrive Questionnaire Date Thrive assessed: 03/30/23 I am a: Patient What is your living situation today?: I have a steady place to live Within the past 12 months, did the food you bought not last and you didn't have the money to get more?: Never true Within the past 12 months, did you worry whether your food would run out before you got money to buy more?: Never true Do you have trouble paying for medicines?: No Do you have trouble getting transportation to medical appointments?: No Do you have trouble paying your heating and electricity bill?: No Do you have trouble taking care of your child, family member or friend?: No Do you have trouble with day-to-day activities such as bathing, preparing meals, shopping, managing finances, etc.?: No Are you currently unemployed and looking for a job?: No Are you interested in more education?: No Please select the resources that you would like help with: None THRIVE Score: 0 AUDIT C Alcohol Use Questionnaire (AUDIT-C) 1. How often do you have a drink containing alcohol?: Never 3. How often do you have six or more drinks on one occasion?: Never Total Score: 0 Score Reviewed/Action Taken: Yes KITTY-7 AMB Questionnaire KITTY-7 Date KITTY - 7 assessed: 03/22/23 Source: Developed by Drs. Zay Lopez, Tonya Ornelas, Holger Bourgeois and colleagues, with an educational suellen from [employer]. Review of Systems Const Denies chills, Reports difficulty sleeping (Zolpidem helps), Reports fatigue, Denies fever(s), Denies headache(s) and Reports weight gain ENT Denies dysphagia, Denies dizziness, Denies otalgia, Denies headache(s), Denies neck pain, Denies odynophagia and Denies sore throat Card Denies chest pain (but reports frequent chest pressure and discomfort - see HPI), Denies pedal edema, Denies leg edema and Reports dyspnea on exertion (mild) Resp Denies chest congestion, Denies cough, Reports dyspnea on exertion (mild) and Denies wheezing GI Denies abdominal pain, Reports constipation (chronic athough he reports moving his bowels daily), Denies dysphagia, Denies diarrhea, Denies nausea, Denies odynophagia and Denies vomiting Denies hematuria, Reports nocturia and Reports urinary frequency Musc Details: recurrent leg pain/cramps with walking Reports back pain and Denies neck pain Skin/Breast Denies rash Neuro Denies dizziness and Denies headache(s) Psych Reports anxiety, Denies depression, Reports difficulty concentrating and Denies irritability Endo Reports fatigue Aller/Immun Denies wheezing Physical exam (Primary Care) Vital Signs: Last Vital Signs Pulse 115 H 09/06/23 09:22 BP 140/98 H 09/06/23 09:22 Pulse Ox 96 09/06/23 09:22 Oxygen Delivery Method Room Air 09/06/23 09:22 BMI result Body Mass Index 47.7 Tobacco/Smoking Status: Tobacco use Status Tobacco use date assessed 03/22/23 09/06/23 09:23 Patient Tobacco Use Status Current someday Tobacco 09/06/23 09:23 Tobacco use type Cigarette 09/06/23 09:23 e-Cigarette/Vaping Use Never Used 09/06/23 09:23 Thrive Assessment: Date of Thrive Assessment Date Thrive assessed 03/30/23 09/06/23 09:23 Const General: no acute distress and alert HENMT Ears: TM's normal bilaterally and EAC's normal Throat: Yes posterior oropharynx normal and Yes tonsils normal (no TP congestion) Neck Neck: Yes no lymphadenopathy and Yes supple Thyroid: Thyroid normal Resp Auscultation: clear to auscultation bilaterally, no rales and no wheezes Cardio Rate: regular rate Rhythm: regular rhythm Heart sounds: no murmurs GI Inspection: Yes Abdominal wall edema and Yes distended (abdomen appears globularly enlarged and distended) Palpation (GI): Soft to palpation and nontender Auscultation: normal bowel sounds General: Yes no CVA tenderness Back/Spine/Pelvis Back: no CVA tenderness Thoracic/Lumbar Spine: No lumbar spinal tenderness Skin Rashes: no rashes Extrem General: Yes no clubbing, cyanosis or edema Results Reviewed Results Reviewed: Laboratory Tests 07/14/23 07/14/23 06:14 06:46 WBC 5.0 Hgb 15.2 Hct 46.2 Plt Count 311 Sodium 141 Potassium 3.9 Creatinine 0.77 Estimated GFR > 60 Fasting Glucose 113 H Hemoglobin A1c % 6.6 H Calcium 9.3 AST 29 ALT 45 H Triglycerides 103 Cholesterol 227 H LDL Cholesterol, Calc 148 H HDL Cholesterol 59 Vitamin B12 420 25-OH Vitamin D Total 24.2 L TSH 0.94 Total Testosterone 318 Fr Testosterone Dialys 44.5 Ur Specific [place] 1.010 Urine Protein Negative Urine Glucose (UA) Negative Urine Blood Negative Urine Nitrite Negative Ur Leukocyte Esterase Negative Assessment and Plan Assessment & Plan (1) Pure hypercholesterolemia: Code(s): E78.00 - Pure hypercholesterolemia, unspecified Plan: Results of his labs done a couple of months ago reviewed and discussed with patient He is advised that his cholesterol levels, especially his total and LDL cholesterol, are still elevated and mostly unchanged from last year Reinforced low cholesterol diet Patient asked for a chance today to try to get his cholesterol numbers improved with diet modification - he was advised that if he cannot get his cholesterol numbers improved significantly with diet modification and lifestyle changes over the next few months, then we really should consider starting him on pharmacotherapy to help lower his cholesterol levels and overall cardiac risks, especially since he now also has diabetes Will have him recheck his labs and fasting lipids in 4 months for follow up (2) Diabetes mellitus: Code(s): E11.9 - Type 2 diabetes mellitus without complications Qualifiers: Diabetes mellitus type: type 2 Diabetes mellitus care home insulin use: without care home use Diabetes mellitus complication status: with hyperglycemia Qualified Code(s): E11.65 - Type 2 diabetes mellitus with hyperglycemia Plan: He is advised that his HgbA1c is now at 6.6%, which officially makes him a diabetic (HgbA1c was at 5.5% when previously checked in 2019) - goal is ideally <6.5% Reinforced diabetic diet Per request, will refer him to medical representative for dietary counseling regarding both his diabetes and hypercholesterolemia Have advised patient that I will hold off on starting him on diabetes Rx for now but will consider this as well if he cannot get his glycemic control and HgbA1c improved significantly over the next few months (3) Chest pressure: Code(s): R07.89 - Other chest pain Plan: Patient he continues to complain of recurrent chest discomfort and pressure, which have reportedly been ongoing for a few years now He describes his symptoms as a feeling of somebody sitting on his chest when they occur He had stress testing and echocardiogram done back in December 2021 but tests were not completed His stress testing was terminated around 91% due to fatigue and patient request EKG at the time did not meet ischemic criteria and showed (+) T wave inversions in leads III and V6, slight V5 at baseline and throughout test and recovery. He did have prolonged sinus tachycardia in recovery which gradually improved with relaxation and laying in supine position His echocardiogram was also not completed as patient terminated exam due to not being able to tolerate it - echo did show normal EF and (+) mild to moderate septal hypertrophy, but was difficult to completely assess. There was also a small intraventricular/LVOT gradient with no obvious valvular pathology seen on the study He also reports (+) frequent ARMENTA and recurrent edema of the lower extremities - patient also has asthma so his symptoms again may be misleading Will refer him to cardiology for urgent evaluation and management of his recurrent chest symptoms, in light of his new comorbidities which increase his risks for CV disease (4) Asthma: Code(s): J45.909 - Unspecified asthma, uncomplicated Qualifiers: Asthma severity: mild Asthma persistence: intermittent Asthma complication type: uncomplicated Qualified Code(s): J45.20 - Mild intermittent asthma, uncomplicated Plan: Continue Albuterol HFA 1 to 2 inhalations Q 6 hours as needed (5) Chronic constipation: Code(s): K59.09 - Other constipation Plan: Patient states that this is currently well-controlled Reinforced increased oral fluids and dietary fiber Continue Linzess 145 mcg Q AM, Metamucil 0.4 gm BID PRN and MagOx 500 mg BID Follow up with GI as scheduled (6) GERD without esophagitis: Code(s): K21.9 - Gastro-esophageal reflux disease without esophagitis Plan: Dietary restrictions reinforced Continue Omeprazole 40 mg QD Follow up with GI as scheduled (7) Vitamin D deficiency: Code(s): E55.9 - Vitamin D deficiency, unspecified Plan: Continue Vitamin D3 1000 units QD - Rx refilled (8) Edema: Code(s): R60.9 - Edema, unspecified Qualifiers: Edema type: generalized Qualified Code(s): R60.1 - Generalized edema Plan: Continue Furosemide 40 mg Q AM PRN (9) Low back pain: Code(s): M54.50 - Low back pain, unspecified Qualifiers: Chronicity: unspecified Back pain laterality: midline Sciatica presence: without sciatica Qualified Code(s): M54.50 - Low back pain, unspecified Plan: Lumbar spine x-rays done back in April 2022 came out unremarkable Reinforced activity and weight-lifting restrictions Continue Tizanidine 4 mg TID PRN (10) Alcoholism: Code(s): F10.20 - Alcohol dependence, uncomplicated Plan: States that he has not had any alcohol to drink in several months now He is encouraged to continue to stay sober Continue Campral 333 mg BID Continue Thiamine 100 mg QD as well as his Vitamin B complex and Vitamin C daily (11) Insomnia: Code(s): G47.00 - Insomnia, unspecified Qualifiers: Insomnia type: unspecified Qualified Code(s): G47.00 - Insomnia, unspecified Plan: Sleep hygiene reinforced Continue Trazodone 50 mg Q HS (12) Schizoaffective disorder, bipolar type: Code(s): F25.0 - Schizoaffective disorder, bipolar type Plan: He was on Aripiprazole ER 400 mg IM Q 30 days and [place] 300 mg QD and 600 mg Q HS previously but states that he stopped taking these on his own and states that his psychiatrist was agreeable to this He was also on Adderall XR 35 mg total daily dose (30 mg + 5 mg) QD instead previously but now appears to be only on Lorazepam 1 mg QD PRN Follow up with psychiatry as scheduled (sees Johnny Macias) (13) Smoker: Code(s): F17.200 - Nicotine dependence, unspecified, uncomplicated Plan: Counseled again to continue attempts at smoking cessation Continue Nicotine patch 21 mg QD (14) Morbid obesity with BMI of 45.0-49.9, adult: Code(s): E66.01 - Morbid (severe) obesity due to excess calories; Z68.42 - Body mass index [BMI] 45.0-49.9, adult Plan: Reinforced diet/exercise as tolerated/lose weight He was previously referred to weight management but states that he has not yet been contacted regarding his referral Have provided patient with the phone number for weight management and he can try calling them on his own to schedule his appt Have also advised patient that he should try to get his cardiac symptoms checked out first and get them cleared before he start considering the GLP-1s to help him lose weight Plan Follow up in 4 months Orders: Orders Lipid Panel 12/15/23 E78.00 - Pure hypercholesterolemia, unspecified Comprehensive [place]. Panel Fast 12/15/23 E78.00 - Pure hypercholesterolemia, unspecified Complete Blood Count Auto Diff 12/15/23 D64.9 - Anemia, unspecified TSH reflex Free T4 12/15/23 E78.00 - Pure hypercholesterolemia, unspecified UA CC w/rflx Micro + Cult 12/15/23 R30.0 - Dysuria Hemoglobin A1c 12/15/23 E11.9 - Type 2 diabetes mellitus without complications Vitamin D 25-OH Total 12/15/23 E55.9 - Vitamin D deficiency, unspecified Referrals Cardiology Referral R07.89 - Other chest pain Nutrition/Dietitian Referral E11.9 - Type 2 diabetes mellitus without complications, E78.00 - Pure hypercholesterolemia, unspecified Coding Level of Care Code Est Pt Level 4 (30879) Complex EM visit Add On G2211 Diagnoses Pure hypercholesterolemia E78.00 Type 2 diabetes mellitus with hyperglycemia, without long-term current use of insulin E11.65 Diabetes mellitus type: type 2 Diabetes mellitus care home insulin use: without termite helper use Diabetes mellitus complication status: with hyperglycemia Chest pressure R07.89 Mild intermittent asthma without complication J45.20 Asthma severity: mild Asthma persistence: intermittent Asthma complication type: uncomplicated Chronic constipation K59.09 GERD without esophagitis K21.9 Vitamin D deficiency E55.9 Generalized edema R60.1 Edema type: generalized Midline low back pain without sciatica, unspecified chronicity M54.50 Chronicity: unspecified Back pain laterality: midline Sciatica presence: without sciatica Alcoholism F10.20 Insomnia, unspecified type G47.00 Insomnia type: unspecified Schizoaffective disorder, bipolar type F25.0 Smoker F17.200 Morbid obesity with BMI of 45.0-49.9, adult E66.01; Z68.42
== END 2023-09-06 10:26 | disposition home or self-care (01) ==
PROVIDERS: PCP Internal Medicine; Visit Provider Internal Medicine
DX: E11.65 Type 2 diabetes mellitus with hyperglycemia (principal); F10.20 Alcohol dependence, uncomplicated; E66.01 Morbid (severe) obesity due to excess calories; Z68.42 Body mass index [BMI] 45.0-49.9, adult; F25.0 Schizoaffective disorder, bipolar type; E78.00 Pure hypercholesterolemia, unspecified; J45.20 Mild intermittent asthma, uncomplicated; R07.89 Other chest pain; K59.09 Other constipation; K21.9 Gastro-esophageal reflux disease without esophagitis; E55.9 Vitamin D deficiency, unspecified; R60.1 Generalized edema
CPT/HCPCS: 99214; G2211

== ENCOUNTER 2023-09-07 14:43 | Emergency (ER) | payer OTHER, SELFPAY ==
[2023-09-07] VITALS (8 sets, daily range): BP systolic 123–152; BP diastolic 85–103; PULSE 93–110; RESP 16–18; TEMP 36.8–37.1; O2SAT 94–98; BMI 43.2
--- NOTE | 2023-09-07 14:48 | ED.GENADULT ---
HPI - General Adult General Chief complaint: Abdominal Pain Stated complaint: lightheaded, weak, nausea Time Seen by Provider: 09/07/23 16:17 Related Data Previous Rx's ?Medication ?Instructions ?Recorded albuterol sulfate 90 mcg/actuation 2 puff inhalation RQ4H PRN 09/13/23 aerosol inhaler (Ventolin HFA) Shortness Of Breath/Wheezing 30 days #8.5 grams chlorpromazine 50 mg tablet 50 mg PO BEDTIME 30 days #30 tabs 09/13/23 clonidine HCl 0.1 mg tablet 0.1 mg PO BID 30 days #60 tabs 09/13/23 dextroamphetamine-amphetamine 30 1 tab PO DAILY 30 days #30 tabs 09/13/23 mg tablet furosemide 40 mg tablet 40 mg PO DAILY 30 days #30 tabs 09/13/23 hydroxyzine pamoate 50 mg capsule 50 mg PO TID 30 days #90 caps 09/13/23 lorazepam 1 mg tablet 1 mg PO DAILY Anxiety 30 days #30 09/13/23 tabs trazodone 50 mg tablet 50 mg PO BEDTIME 30 days #30 tabs 09/13/23 Allergies Allergy/AdvReac Type Severity Reaction Status Date / Time cat dander Allergy Severe Itchy Eyes Verified 09/08/23 05:32 No Known Drug Allergies Allergy Severe none Verified 09/08/23 05:32 Seasonal Allergies Allergy Intermediate snee Verified 09/08/23 05:32 pineapple Allergy Itching Verified 09/08/23 05:32 [facility] Past Medical History Medical History GERD without esophagitis Schizoaffective disorder Dyspnea Obesity Vasectomy evaluation Abdominal pain Chronic constipation Obesity (BMI 30-39.9) Weight gain Morbid obesity with BMI of 40.0-44.9, adult Annual physical exam Obese Screening for diabetes mellitus (DM) Abdominal pain Abdominal swelling Upper respiratory infection with cough and congestion Vasectomy evaluation Screening for STD (sexually transmitted disease) Screening for hypercholesterolemia COVID-19 Physical exam COVID-19 Schizoaffective disorder, bipolar type Smoker Vitamin D deficiency Pure hypercholesterolemia Elevated LFTs Alcoholism Asthma Surgical History No significant past surgical history Family History Family History Mother No problems noted. Father No problems noted. Social History Social History Household Members: None Household Members Other:: none Housing: Apartment Do you presently have visiting nurse or other home services: No Alcohol intake: current Alcohol intake frequency: 3 or more drinks per day Alcohol type: beer and hard liquor Patient Tobacco Use Status: Current everyday Tobacco user Tobacco use type: Cigarette Cigarette Packs Per Day: 1 Cigarettes Per Day: 20.0 e-Cigarette/Vaping Use: Former Use Second Hand Smoke Exposure: No Substance Use Type: Marijuana service: No Current occupational status: disabled Sexual orientation: Don't Know Cognitive needs: No Hearing needs: No Vision needs: No Physical Exam ED Vital Signs: BMI result Body Mass Index 43.2 Course Course Course Narrative: This is a rapid medical exam performed by Garcia Geiger NP: Additional HPI, ROS, PE not included below will be deferred to primary provider. Patient is a 37-year-old male presenting to the ED with diarrhea, lightheadedness and nausea since this morning. Generalized abdominal pain. Plan: viral swabs, UA, labs Medications Administered Discontinued Medications Generic Name Dose Route Start Last Admin Trade Name Freq PRN Reason Stop Dose Admin Acetaminophen 975 mg 09/07/23 19:11 09/07/23 19:36 Acetaminophen 325 Mg Tablet PO 09/07/23 19:12 975 mg ONCE ONE Administration Sodium Chloride 1,000 mls @ 999 mls/hr 09/07/23 16:23 09/07/23 18:22 Ns IVCONT 09/07/23 17:23 Infused .Q1H1M ONE Infusion Loperamide HCl 4 mg 09/07/23 16:23 09/07/23 16:39 Loperamide Hcl 2 Mg Capsule PO 09/07/23 16:24 4 mg ONCE ONE Administration Ondansetron HCl 4 mg 09/07/23 16:23 09/07/23 16:39 Ondansetron Hcl 4 Mg/2 Ml Vial IVPUSH 09/07/23 16:24 4 mg ONCE ONE Administration Medical Decision Making Lab Data 09/07/23 15:28 09/07/23 15:28 Labs: Lab Results 09/07/23 Range/Units 15:28 WBC 4.4 L (4.8-10.8) X10*3/uL RBC 5.08 (4.60-5.80) X10*6/uL Hgb 13.8 L (14.0-18.0) g/dl Hct 41.2 L (42.0-52.0) % MCV 81.1 (80.0-98.0) fL MCH 27.2 (27.0-33.0) pg MCHC 33.5 (31.0-36.0) g/dl RDW 14.6 (11.0-16.0) % Plt Count 302 (160-400) X10*3/uL MPV 9.3 L (9.4-12.4) fL Immature Gran % (Auto) 0.2 (0.0-0.4) % Neut % (Auto) 42.6 L (45-73) % Lymph % (Auto) 43.5 H (20-40) % [place] % (Auto) 10.7 (2-11) % Eos % (Auto) 2.3 (0-4) % Baso % (Auto) 0.7 (0-2) % Lymph # (Auto) 1.9 (1.2-4.9) X10*3/uL [place] # (Auto) 0.5 (0.1-1.2) X10*3/uL Eos # (Auto) 0.1 (0.0-0.4) X10*3/uL Baso # (Auto) 0.0 (0.0-0.2) X10*3/uL Abs Immat Gran (auto) 0.01 (0.00-0.03) X10*3/uL Absolute Neuts (auto) 1.9 L (2.0-8.3) x10*3/uL Absolute Nucleated RBC 0.000 (0.0-0.012) X10*3/uL Nucleated RBC % (auto) 0.0 (0.0-0.2) /100WBC Sodium 140 (135-145) mmol/L Potassium 3.9 (3.3-5.1) mmol/L Chloride 107 (96-108) mmol/L Carbon Dioxide 23 (22-29) mmol/L Anion Gap 14 (12-20) BUN 9 (9-16) mg/dL Creatinine 0.83 (0.5-1.4) mg/dL Estim Creat Clear Calc 178.2 Estimated GFR > 60 Random Glucose 115 (60-115) mg/dL Calcium 8.4 D (8.4-10.2) mg/dL Magnesium 1.8 (1.6-2.6) mg/dL Total Bilirubin 0.4 (0.0-1.0) mg/dL AST 49 H (5-37) U/L ALT 67 H (0-40) U/L Alkaline Phosphatase 65 (39-117) U/L Total Protein 7.1 (6.5-8.0) g/dL Albumin 3.7 (3.5-5.0) g/dL Amylase 64 (28-100) U/L Lipase 21 (8-78) U/L Influenza Type A (PCR) NEGATIVE (Negative) Influenza Type B (PCR) NEGATIVE (Negative) RSV RNA Qual (PCR) NEGATIVE (Negative) SARS-CoV-2 RNA (RT-PCR) NEGATIVE (Negative) Discharge Plan Discharge Clinical Impression: Abdominal pain, Nausea vomiting and diarrhea, Dizziness Patient Disposition: Home, Self-Care Instructions: Acute Nausea and Vomiting (ED), Acute Diarrhea (ED), Abdominal Pain (ED) Additional Instructions: Please follow-up with your primary care physician tomorrow. If you have any worsening or new symptoms, please return to the emergency room or call 911 Prescriptions: No Action chlorpromazine 50 mg tablet 50 mg PO BEDTIME 30 Days Qty: 30 0RF lorazepam 1 mg Tablet 1 mg PO DAILY 30 Days Qty: 30 0RF furosemide 40 mg Tablet 40 mg PO DAILY 30 Days Qty: 30 0RF Protocol: Hold for SBP< HOLD for SBP < : 90 albuterol sulfate [Ventolin HFA] 90 mcg/actuation Hfa Aerosol Inhaler 2 puff inhalation RQ4H PRN (Reason: Shortness Of Breath/Wheezing) 30 Days Qty: 8.5 0RF clonidine HCl 0.1 mg Tablet 0.1 mg PO BID 30 Days Qty: 60 0RF trazodone 50 mg tablet 50 mg PO BEDTIME 30 Days Qty: 30 0RF hydroxyzine pamoate 50 mg capsule 50 mg PO TID 30 Days Qty: 90 0RF dextroamphetamine-amphetamine 30 mg tablet 1 tab PO DAILY 30 Days Qty: 30 0RF Interventions: ED Discharge Assessment Last Done: 09/07/23 21:31 Discharge Date/Time: 09/07/23 21:33 Print Language: Filipino
[2023-09-07 15:31] LABS: MANUAL DIFF FLAG NO
[2023-09-07 15:45] LABS: Basophils Percent Auto 0.7 % (0-2); Eosinophils Absolute Auto 0.1 X10*3/uL (0.0-0.4); Eosinophils Percent Auto 2.3 % (0-4); Hematocrit 41.2 % (42.0-52.0); Hemoglobin 13.8 g/dl (14.0-18.0); Imm Gran Abs Auto 0.01 X10*3/uL (0.00-0.03); Imm Gran Pct Auto 0.2 % (0.0-0.4); Lymphocytes Absolute Auto 1.9 X10*3/uL (1.2-4.9); Lymphocytes Percent Auto 43.5 % (20-40); Mean Corpuscular HGB Conc 33.5 g/dl (31.0-36.0); Mean Corpuscular Hemoglobin 27.2 pg (27.0-33.0); Mean Corpuscular Volume 81.1 fL (80.0-98.0); Mean Platelet Volume 9.3 fL (9.4-12.4); Monocytes Absolute Auto 0.5 X10*3/uL (0.1-1.2); Monocytes Percent Auto 10.7 % (2-11); Neutrophils Absolute Auto 1.9 x10*3/uL (2.0-8.3); Neutrophils Percent Auto 42.6 % (45-73); Platelet Count 302 X10*3/uL (160-400); Red Blood Count 5.08 X10*6/uL (4.60-5.80); Red Cell Distribution Width 14.6 % (11.0-16.0); White Blood Count 4.4 X10*3/uL (4.8-10.8)
[2023-09-07 15:54] LABS: Alanine Aminotransferase 67 U/L (0-40); Albumin Level 3.7 g/dL (3.5-5.0); Alkaline Phosphatase 65 U/L (39-117); Anion Gap 14 (12-20); Aspartate Amino Transferase 49 U/L (5-37); Bilirubin Total 0.4 mg/dL (0.0-1.0); Blood Urea Nitrogen 9 mg/dL (9-16); Calcium 8.4 mg/dL (8.4-10.2); Carbon Dioxide 23 mmol/L (22-29); Chloride 107 mmol/L (96-108); Creatinine Clr Calc Pharmacy 178.2; Estimated Glomerular Filt Rate > 60; Glucose Random 115 mg/dL (60-115); Lipase 21 U/L (8-78); Magnesium 1.8 mg/dL (1.6-2.6); Potassium 3.9 mmol/L (3.3-5.1); Sodium 140 mmol/L (135-145); Total Protein 7.1 g/dL (6.5-8.0)
[2023-09-07 16:09] LABS: Amylase 64 U/L (28-100)
--- NOTE | 2023-09-07 16:24 | ED_ITS ---
HPI - Abdominal Pain General Chief Complaint: Abdominal Pain Stated Complaint: lightheaded, weak, nausea Time Seen by Provider: 09/07/23 16:17 Source: patient Mode of arrival: ambulatory Limitations: no limitations History of Present Illness ED Provider: Dr. Martha Flowers HPI narrative: Patient comes to the emergency room complaining of several weeks of nausea vomiting diarrhea. However, patient states that today he started feeling lightheaded, denies syncope or near-syncope. Patient complaining of generalized abdominal cramping. Denies any fever chills, no hematuria or dysuria, no flank pain. Related Data Home Medications ?Medication ?Instructions ?Recorded ?Confirmed tizanidine 4 mg tablet 4 mg PO TID 06/22/23 09/06/23 lorazepam 1 mg tablet 1 mg PO DAILY PRN 09/06/23 09/06/23 Previous Rx's ?Medication ?Instructions ?Recorded albuterol sulfate 90 mcg/actuation 2 puff inhalation Q4-6H PRN 04/05/23 aerosol inhaler shortness of breath or wheezing 30 days #1 inhaler clonazepam 0.5 mg tablet 0.5 mg PO BID 30 days #60 tabs 04/05/23 trazodone 50 mg tablet 50 mg PO BEDTIME 30 days #30 tabs 04/05/23 nicotine 14 mg/24 hr daily 1 patch transdermal DAILY 28 days 05/23/23 transdermal patch (Nicoderm CQ) #28 ea albuterol sulfate 2.5 mg/3 mL 2.5 mg (3 mL) inhalation Q4-6H PRN 06/21/23 (0.083 %) solution for nebulization shortness of breath or wheezing #180 mL nebulizers (AeroneJuv [employer] Go Nebulizer) #1 ea 06/21/23 omeprazole 40 mg capsule,delayed 40 mg PO DAILY 30 days #30 caps 06/22/23 release linaclotide 145 mcg capsule 145 mcg PO QAM #30 caps 06/23/23 (Linzess) acamprosate 333 mg tablet,delayed 333 mg PO BID 30 days #60 tabs 07/13/23 release furosemide 40 mg tablet 40 mg PO QAM PRN edema 30 days #30 07/13/23 tabs loperamide 2 mg tablet 2 mg PO Q4H PRN loose stool #10 09/07/23 (Anti-Diarrheal (loperamide)) tabs ondansetron 4 mg disintegrating 4 mg PO Q6H PRN nausea and 09/07/23 tablet vomiting #14 tabs Allergies Allergy/AdvReac Type Severity Reaction Status Date / Time cat dander Allergy Severe Itchy Eyes Verified 09/07/23 14:49 No Known Drug Allergies Allergy Severe none Verified 09/07/23 14:49 Seasonal Allergies Allergy Intermediate snee Verified 09/07/23 14:49 pineapple Allergy Itching Verified 09/07/23 14:49 Review of Systems Review of Systems Constitutional : No Weight loss, No Fever, No Chills, No Night Sweats, No Fatigue, No Malaise ENT/Mouth : No Hearing loss, No Ear Pain, No Nasal Congestion, No Sinus Pain, No Hoarseness, No sore throat, No Rhinorrhea, No Swallowing Difficulty Eyes: No Eye Pain, No Swelling, No Redness, No Foreign Body, No Discharge, No Vision Changes Cardiovascular : No Chest Pain, No SOB, No Dyspnea on Exertion, No Orthopnea, No Edema, No Palpitations Respiratory : No Cough, No Sputum, No Wheezing, No Smoke Exposure, No Dyspnea Gastrointestinal : Complaining of nausea vomiting and diarrhea and diffuse abdominal cramping intermittently, No Constipation, No Hematochezia, No Melena Genitourinary : no irregular bleeding, No Dysuria, No Urinary Frequency, No Hematuria, No Urinary Incontinence, No Urgency, No Flank Pain, No Urinary Flow Changes, No Hesitancy Musculoskeletal : No joint pain, No Myalgias, No Joint Swelling Skin : No Skin Lesions, No rash Neuro : No Weakness, No Numbness, No Paresthesias, No Loss of Consciousness, No Dizziness, No Headache Psych : No Anxiety/Panic, No Depression, No SI/HI/AH/VH, No Social Issues, Heme/Lymph: No Bruising, No Bleeding,No Lymphadenopathy Endocrine : No Polyuria, No Polydipsia, No Temperature Intolerance PMFSH Past Medical History Medical History GERD without esophagitis Schizoaffective disorder Dyspnea Obesity Vasectomy evaluation Abdominal pain Chronic constipation Obesity (BMI 30-39.9) Weight gain Morbid obesity with BMI of 40.0-44.9, adult Annual physical exam Obese Screening for diabetes mellitus (DM) Abdominal pain Abdominal swelling Upper respiratory infection with cough and congestion Vasectomy evaluation Screening for STD (sexually transmitted disease) Screening for hypercholesterolemia COVID-19 Physical exam COVID-19 Schizoaffective disorder, bipolar type Smoker Vitamin D deficiency Pure hypercholesterolemia Elevated LFTs Alcoholism Asthma Surgical History No significant past surgical history Family History Family History Mother No problems noted. Father No problems noted. Social History Social History Household Members: None Housing: Apartment Do you presently have visiting nurse or other home services: No Alcohol intake: current Alcohol intake frequency: holidays/special occasions only Patient Tobacco Use Status: Current someday Tobacco user Tobacco use type: Cigarette Cigarettes Per Day: 5 e-Cigarette/Vaping Use: Never Used Second Hand Smoke Exposure: No Substance Use Type: Marijuana Advance Directives: No Advance Directives Information Provided: No Do you have a plan to hurt others: No Plan service: No Current occupational status: disabled Sexual orientation: Don't Know Cognitive needs: No Hearing needs: No Vision needs: No Physical Exam ED Vital Signs: Vital Signs - 24 hr 09/07/23 14:48 09/07/23 16:18 09/07/23 16:24 Temperature 98.7 F Pulse Rate 106 H 93 96 Respiratory Rate 18 18 Blood Pressure 150/103 H 151/97 H 123/85 Pulse Oximetry 94 98 Oxygen Delivery Method Room Air Room Air 09/07/23 16:28 09/07/23 16:28 09/07/23 16:29 Temperature Pulse Rate 95 107 H 110 H Respiratory Rate Blood Pressure 123/85 139/103 H 144/94 H Pulse Oximetry Oxygen Delivery Method BMI result Body Mass Index 43.2 Const Other: Appearance: Alert. Oriented X3. No acute distress. Eyes: Pupils equal, round and reactive to light. ENT: Pharynx normal. Neck: Normal inspection. Neck supple. No lymph nodes noted. No crepitus CVS: Normal heart rate and rhythm. Pulses normal. Normal S1 and S2 Respiratory: No respiratory distress. Breath sounds normal. No Wheezing. No rales Abdomen: Soft , no significant tenderness to palpation in all quadrants, no rigidity or distention, no rebound or guarding Skin: Skin warm and dry. Normal skin color. Normal skin turgor. Extremities: No lower extremity edema. No Lacerations. No Rash Neuro: Oriented X 3. No motor deficit. No sensory deficit. Moving all extremities. No slurred speech. CN 2 through 12 grossly intact Psych: calm, cooperative, normal affect Medical Decision Making Medical Decision Making [facility] Narrative: -my interpretation of labs: Normal hematology and chemistry, normal LFTs and lipase. -my interpretation of EKG: Normal sinus rhythm, heart rate 94, no ST segment depression or elevation, no T-wave inversion, QTC 445 -patient receiving IV fluids, loperamide and Zofran -orthostatic vitals negative -overall patient feeling better, patient did not have any episodes of abdominal pain nausea vomiting or diarrhea in the ED -patient's dizziness resolved after IV fluids. Patient likely dehydrated Differential Diagnosis Differential Diagnoses: The differential diagnosis associated with the presentation includes (Gastroenteritis, viral syndrome, colitis) Admission/Observation Consideration of admission/observation: Escalation of care including admission/observation considered (Given patient's length of symptoms, observation was considered) Lab Data [facility] Lab Attestation statement: I reviewed the patient's lab results. 09/07/23 15:28 09/07/23 15:28 Labs: Lab Results 09/07/23 Range/Units 15:28 WBC 4.4 L (4.8-10.8) X10*3/uL RBC 5.08 (4.60-5.80) X10*6/uL Hgb 13.8 L (14.0-18.0) g/dl Hct 41.2 L (42.0-52.0) % MCV 81.1 (80.0-98.0) fL MCH 27.2 (27.0-33.0) pg MCHC 33.5 (31.0-36.0) g/dl RDW 14.6 (11.0-16.0) % Plt Count 302 (160-400) X10*3/uL MPV 9.3 L (9.4-12.4) fL Immature Gran % (Auto) 0.2 (0.0-0.4) % Neut % (Auto) 42.6 L (45-73) % Lymph % (Auto) 43.5 H (20-40) % [place] % (Auto) 10.7 (2-11) % Eos % (Auto) 2.3 (0-4) % Baso % (Auto) 0.7 (0-2) % Lymph # (Auto) 1.9 (1.2-4.9) X10*3/uL [place] # (Auto) 0.5 (0.1-1.2) X10*3/uL Eos # (Auto) 0.1 (0.0-0.4) X10*3/uL Baso # (Auto) 0.0 (0.0-0.2) X10*3/uL Abs Immat Gran (auto) 0.01 (0.00-0.03) X10*3/uL Absolute Neuts (auto) 1.9 L (2.0-8.3) x10*3/uL Absolute Nucleated RBC 0.000 (0.0-0.012) X10*3/uL Nucleated RBC % (auto) 0.0 (0.0-0.2) /100WBC Sodium 140 (135-145) mmol/L Potassium 3.9 (3.3-5.1) mmol/L Chloride 107 (96-108) mmol/L Carbon Dioxide 23 (22-29) mmol/L Anion Gap 14 (12-20) BUN 9 (9-16) mg/dL Creatinine 0.83 (0.5-1.4) mg/dL Estim Creat Clear Calc 178.2 Estimated GFR > 60 Random Glucose 115 (60-115) mg/dL Calcium 8.4 D (8.4-10.2) mg/dL Magnesium 1.8 (1.6-2.6) mg/dL Total Bilirubin 0.4 (0.0-1.0) mg/dL AST 49 H (5-37) U/L ALT 67 H (0-40) U/L Alkaline Phosphatase 65 (39-117) U/L Total Protein 7.1 (6.5-8.0) g/dL Albumin 3.7 (3.5-5.0) g/dL Amylase 64 (28-100) U/L Lipase 21 (8-78) U/L Influenza Type A (PCR) NEGATIVE (Negative) Influenza Type B (PCR) NEGATIVE (Negative) RSV RNA Qual (PCR) NEGATIVE (Negative) SARS-CoV-2 RNA (RT-PCR) NEGATIVE (Negative) Medications Administered Discontinued Medications Generic Name Dose Route Start Last Admin Trade Name Freq PRN Reason Stop Dose Admin Sodium Chloride 1,000 mls @ 999 mls/hr 09/07/23 16:23 09/07/23 16:47 Ns IVCONT 09/07/23 17:23 999 mls/hr .Q1H1M ONE Administration Loperamide HCl 4 mg 09/07/23 16:23 09/07/23 16:39 Loperamide Hcl 2 Mg Capsule PO 09/07/23 16:24 4 mg ONCE ONE Administration Ondansetron HCl 4 mg 09/07/23 16:23 09/07/23 16:39 Ondansetron Hcl 4 Mg/2 Ml Vial IVPUSH 09/07/23 16:24 4 mg ONCE ONE Administration Critical Care Time Critical Care Time Critical Care Time: Yes Total Critical Care Time: 35 Attestation: I have personally provided critical care time. Time includes review of lab data, radiology results, discussion with consultants, and monitoring for potential decompensation. Intervention performed as documented. Discharge Plan Discharge Clinical Impression: Abdominal pain, Nausea vomiting and diarrhea, Dizziness Patient Disposition: Home, Self-Care Instructions: Acute Nausea and Vomiting (ED), Acute Diarrhea (ED), Abdominal Pain (ED) Additional Instructions: Please follow-up with your primary care physician tomorrow. If you have any worsening or new symptoms, please return to the emergency room or call 911 Prescriptions: New ondansetron 4 mg tablet,disintegrating 4 mg PO Q6H PRN (Reason: nausea and vomiting) Qty: 14 0RF loperamide [Anti-Diarrheal (loperamide)] 2 mg tablet 2 mg PO Q4H PRN (Reason: loose stool) Qty: 10 0RF Rx Instructions: administer after each loose stool until symptoms controlled; do not exceed 8 mg per 24 hrs No Action nicotine [Nicoderm CQ] 14 mg/24 hr patch 24 hour 1 patch transdermal DAILY 28 Days Qty: 28 1RF albuterol sulfate 2.5 mg /3 mL (0.083 %) solution for nebulization 2.5 mg inhalation Q4-6H PRN (Reason: shortness of breath or wheezing) Qty: 180 0RF (DME) nebulizers [Aeroneb Go Nebulizer] Misc See Rx Instructions .Route Qty: 1 0RF Rx Instructions: As directed Janiyas 145 mcg capsule 145 mcg PO QAM Qty: 30 6RF clonazepam 0.5 mg Tablet 0.5 mg PO BID 30 Days Qty: 60 0RF albuterol sulfate 90 mcg/actuation HFA aerosol inhaler 2 puff inhalation Q4-6H PRN (Reason: shortness of breath or wheezing) 30 Days Qty: 1 7RF trazodone 50 mg tablet 50 mg PO BEDTIME 30 Days Qty: 30 0RF Rx Instructions: may repeat x1 1-2 hours after initial dose as needed for sleep furosemide 40 mg tablet 40 mg PO QAM PRN (Reason: edema) 30 Days Qty: 30 0RF acamprosate 333 mg tablet,delayed release (DR/EC) 333 mg PO BID 30 Days Qty: 60 1RF Rx Instructions: administer with mid-day and evening meals lorazepam 1 mg tablet 1 mg PO DAILY PRN tizanidine 4 mg tablet 4 mg PO TID omeprazole 40 mg capsule,delayed release(DR/EC) 40 mg PO DAILY 30 Days Qty: 30 3RF Print Language: [place] Citizen
--- NOTE | 2023-09-07 16:28 | ECG_ITS ---
Test Reason : DIZZINESS Blood Pressure : / mmHG Vent. Rate : 094 BPM Atrial Rate : 094 BPM P-R Int : 142 ms QRS Dur : 082 ms QT Int : 356 ms P-R-T Axes : 066 -15 009 degrees QTc Int : 445 ms Normal sinus rhythm Normal ECG When compared with ECG of 25-AUG-2021 16:07, No significant change was found Referred By: Martha Flowers Electronically Signed By:HADLEY HITCHCOCK
[2023-09-07 16:33] LABS: Influenza A PCR NEGATIVE (Negative); Influenza B PCR NEGATIVE (Negative); Resp Syncy Virus RNA Qual PCR NEGATIVE (Negative); SARS COV2 PCR INHOUSE NEGATIVE (Negative)
[2023-09-07] MEDS: ondansetron HCL 4 MG/2 ML VIAL IVPUSH (16:39)
[2023-09-07] MEDS: Loperamide HCl 2 MG CAPSULE 4 MG PO (16:39)
[2023-09-07] MEDS: 0.9 % Sodium Chloride 1,000 ML 999 ML IVCONT (16:47)
--- NOTE | 2023-09-07 19:12 | PC.NURSE ---
This RN assumed care of pt at 1900 and attempted to discharge. Pt c/o abdominal pain and full bag of fluids still running. RN spoke to and verbal order for PO Tylenol given. Pt will get Tylenol and finish IV fluids prior to discharge.
--- NOTE | 2023-09-07 19:18 | MHC.EDTECH ---
This Tech took over care as PCT @1900 pt expresses no other needs at this time Call light within reach Plan of care ongoing
[2023-09-07] MEDS: Acetaminophen 325 MG TABLET 975 MG PO (19:36)
== END 2023-09-07 21:33 | disposition home or self-care (01) ==
PROVIDERS: Registered Nurse Emergency; Emergency Provider Emergency Medicine; PCP Internal Medicine
DX: R11.2 Nausea with vomiting, unspecified (principal); R42 Dizziness and giddiness; R10.9 Unspecified abdominal pain; F17.210 Nicotine dependence, cigarettes, uncomplicated; Z79.899 Other long term (current) drug therapy
CPT/HCPCS: 0241U; 80053; 82150; 83690; 83735; 85025; 93005; 99285; J2405

== ENCOUNTER → 2023-09-07 16:28 | Outpatient (BNV) | payer OTHER, SELFPAY | PROVIDERS: Emergency Provider Emergency Medicine; PCP Internal Medicine; Visit Provider Internal Medicine | DX: R42 Dizziness and giddiness (principal) | CPT/HCPCS: 93010 ==

== ENCOUNTER 2023-09-08 05:09 | Inpatient (IN) | payer OTHER, SELFPAY ==
[2023-09-08 05:29] VITALS: BP 130/88; PULSE 110; RESP 18; TEMP 37.1; O2SAT 95; BMI 43.5
[2023-09-08 05:54] LABS: MANUAL DIFF FLAG NO
[2023-09-08 05:56] LABS: Appearance Urine Clear; Color Urine Yellow; Glucose Urine UA Negative (Negative); Leukocyte Esterase Urine Negative (Negative); Nitrite Urine Negative (Negative); Specific Gravity - Urine 1.015 (1.005-1.025); Urine Blood Negative (Negative); Urine Ketones Negative (Negative); Urine Protein Negative (Neg-Trace)
[2023-09-08 05:58] LABS: Basophils Percent Auto 0.6 % (0-2); Eosinophils Absolute Auto 0.1 X10*3/uL (0.0-0.4); Eosinophils Percent Auto 2.1 % (0-4); Hematocrit 41.1 % (42.0-52.0); Hemoglobin 14.1 g/dl (14.0-18.0); Imm Gran Abs Auto 0.01 X10*3/uL (0.00-0.03); Imm Gran Pct Auto 0.2 % (0.0-0.4); Lymphocytes Absolute Auto 2.2 X10*3/uL (1.2-4.9); Lymphocytes Percent Auto 40.6 % (20-40); Mean Corpuscular HGB Conc 34.3 g/dl (31.0-36.0); Mean Corpuscular Hemoglobin 28.1 pg (27.0-33.0); Mean Corpuscular Volume 81.9 fL (80.0-98.0); Mean Platelet Volume 9.6 fL (9.4-12.4); Monocytes Absolute Auto 0.4 X10*3/uL (0.1-1.2); Monocytes Percent Auto 8.1 % (2-11); Neutrophils Absolute Auto 2.6 x10*3/uL (2.0-8.3); Neutrophils Percent Auto 48.4 % (45-73); Platelet Count 309 X10*3/uL (160-400); Red Blood Count 5.02 X10*6/uL (4.60-5.80); Red Cell Distribution Width 14.8 % (11.0-16.0); White Blood Count 5.3 X10*3/uL (4.8-10.8)
[2023-09-08 06:07] LABS: Amphetamine Screen Urine Not Detected (Not Detect); Barbiturates, Urine Not Detected (Not Detect); Benzodiazepines Screen Urine Not Detected (Not Detect); Buprenorphine Scr Not Detected (Not Detect); Cannabinoid Screen Urine Not Detected (Not Detect); Cocaine Screen Urine Not Detected (Not Detect); Fentanyl, urine Not Detected (Not Detect); Methadone Screen, Urine Not Detected (Not Detect); Opiate Screen Urine Not Detected (Not Detect); Oxycodone Screen Urine Not Detected (Not Detect); Phencyclidine Screen Urine Not Detected (Not Detect)
[2023-09-08 06:14] LABS: Alanine Aminotransferase 66 U/L (0-40); Albumin Level 3.8 g/dL (3.5-5.0); Alkaline Phosphatase 67 U/L (39-117); Anion Gap 17 (12-20); Aspartate Amino Transferase 48 U/L (5-37); Bilirubin Total 0.3 mg/dL (0.0-1.0); Blood Urea Nitrogen 8 mg/dL (9-16); Calcium 8.9 mg/dL (8.4-10.2); Carbon Dioxide 20 mmol/L (22-29); Chloride 109 mmol/L (96-108); Creatinine Clr Calc Pharmacy 170.6; Estimated Glomerular Filt Rate > 60; Ethanol 26 mg/dL; Glucose Random 137 mg/dL (60-115); Potassium 3.7 mmol/L (3.3-5.1); Sodium 142 mmol/L (135-145); Total Protein 7.4 g/dL (6.5-8.0)
--- NOTE | 2023-09-08 06:38 | PC.NURSE ---
pt reporting thoughts of self harm, racing thoughts, panic attack prior to ED arrival, over thinking to the point of not being able to do things around his house, [place], non compliant with medications. daily etoh, CIWA ordered.
--- NOTE | 2023-09-08 07:06 | PC.NURSE ---
Assumed care of patient at 0645. Patient is observed resting quietly in their room. No signs of distress observed, breathing is even and unlabored.
[2023-09-08] MEDS: LORazepam 1 MG TABLET PO ×3 (07:25→23:08)
[2023-09-08 07:28] LABS: Magnesium 1.9 mg/dL (1.6-2.6)
--- NOTE | 2023-09-08 08:09 | ED.PSYCH ---
HPI - Psych General Chief Complaint: Psychiatric Symptoms Stated Complaint: anxiety attack Time Seen by Provider: 09/08/23 06:36 Source: patient, RN notes reviewed and old records reviewed Mode of arrival: ambulatory History of Present Illness ED Provider: Columba Keller PA-C HPI Narrative: 37-year-old male with a past medical history for GERD, schizoaffective disorder, chronic constipation, ETOH abuse, asthma, presenting to the ED complaining of suicidal ideations with plan, states I have a lot of plans , increasing anxiety/panic attacks, mood fluctuations and auditory hallucinations. Reports noncompliance with medications. Patient also reports homicidal ideations. Admits to illicit substance and ETOH use however will not give further information. MD complaint: suicidal ideation, anxiety, substance abuse and hallucinations Related Data Home Medications ?Medication ?Instructions ?Recorded ?Confirmed dextroamphetamine-amphetamine 30 1 tab PO DAILY 09/08/23 09/08/23 mg tablet hydroxyzine pamoate 50 mg capsule 50 mg PO TID 09/08/23 09/08/23 lorazepam 1 mg tablet 1 mg PO DAILY PRN Anxiety 09/08/23 09/08/23 risperidone 1 mg tablet 1 mg PO BID 09/08/23 09/08/23 trazodone 50 mg tablet 50 mg PO BEDTIME 09/08/23 09/08/23 Allergies Allergy/AdvReac Type Severity Reaction Status Date / Time cat dander Allergy Severe Itchy Eyes Verified 09/08/23 05:32 No Known Drug Allergies Allergy Severe none Verified 09/08/23 05:32 Seasonal Allergies Allergy Intermediate snee Verified 09/08/23 05:32 pineapple Allergy Itching Verified 09/08/23 05:32 Review of Systems Review of Systems: Constitutional: No Fever, No Chills, No Night Sweats, No Fatigue, No Malaise ENT/Mouth: No Hearing loss, No Ear Pain, No Nasal Congestion, No sore throat, No Rhinorrhea, No Swallowing Difficulty Eyes: No Eye Pain, No Swelling, No Redness Cardiovascular: No Chest Pain, No SOB Respiratory: No Cough, No Dyspnea Gastrointestinal: No Nausea, No Vomiting, No Diarrhea, No Constipation, No Abdominal pain Skin: No Skin Lesions, No rash Neuro: No Weakness, No Numbness, No Dizziness, No Headache Psych: + Anxiety/Panic, +Depression, +SI/HI/AH, No VH, No Social Issues Yes all other systems are reviewed and are negative Constitutional: Constitutional: Reports as per [facility] Past Medical History Attestation statement: The following information was validated with the patient. Source: old records reviewed Medical History GERD without esophagitis Schizoaffective disorder Dyspnea Obesity Vasectomy evaluation Abdominal pain Chronic constipation Obesity (BMI 30-39.9) Weight gain Morbid obesity with BMI of 40.0-44.9, adult Annual physical exam Obese Screening for diabetes mellitus (DM) Abdominal pain Abdominal swelling Upper respiratory infection with cough and congestion Vasectomy evaluation Screening for STD (sexually transmitted disease) Screening for hypercholesterolemia COVID-19 Physical exam COVID-19 Schizoaffective disorder, bipolar type Smoker Vitamin D deficiency Pure hypercholesterolemia Elevated LFTs Alcoholism Asthma Surgical History No significant past surgical history Family History Family History Mother No problems noted. Father No problems noted. Social History Social History Household Members: None Housing: Apartment Do you presently have visiting nurse or other home services: No Alcohol intake: current Alcohol intake frequency: 3 or more drinks per day Alcohol type: beer and hard liquor Patient Tobacco Use Status: Current someday Tobacco user Tobacco use type: Cigarette Cigarettes Per Day: 5 Smoked in Last 30 Days: No e-Cigarette/Vaping Use: Never Used Second Hand Smoke Exposure: No Use of substances other than those prescribed or required for medical reasons: No Substance Use Type: Marijuana Advance Directives: No Advance Directives Information Provided: No Do you have a plan to hurt others: No Plan service: No Current occupational status: disabled Sexual orientation: Don't Know Cognitive needs: No Hearing needs: No Vision needs: No Physical Exam Vital Signs: Vital Signs: Last Vital Signs Temp 98.7 F 09/08/23 05:29 Pulse 110 H 09/08/23 05:29 Resp 18 09/08/23 05:29 BP 130/88 09/08/23 05:29 Pulse Ox 95 09/08/23 05:29 O2 Del Method Room Air 09/08/23 05:29 BMI result Body Mass Index 43.5 Const: General: cooperative and no acute distress Orientation/consciousness: patient oriented x3 Limitations: no limitations HEENT: Head: Yes normal to inspection and Yes atraumatic Ears: hearing grossly normal bilaterally General nose exam: Normal external nose present Face and sinus: Yes normal facial exam Eyes: General: appearance normal, both eyes and all related structures EOM: EOMs intact bilaterally Neck: Neck: Yes normal visual inspection and Yes no meningeal signs Resp: Effort & Inspection: normal respiratory effort and no respiratory distress Cardio: Rate: regular rate : General: Yes no CVA tenderness Back/Spine/Pelvis: Back: no CVA tenderness Skin: Rashes: no rashes Wounds: no wounds Neuro: General: patient oriented x3, tone normal, no meningeal signs and CN's II-XI intact bilaterally Cranial nerves: Yes CN's II-XII intact bilaterally Gait exam (Neuro): Normal gait present Extrem: General: Yes normal to inspection Psych: Affect: Anxious affect present Attitude: cooperative Thought content: Suicidality present, Homicidality present and Hallucination(s) present Course Course Course Narrative: -829--labs reassuring. Ethanol 26 > will monitor CIWA. Tox screen otherwise negative -physician observation initiated at 08:31 as patient needs more time to be evaluated by care team Physician observation completed at 15:09 as patient will be transferred to inpatient Medications Administered Discontinued Medications Generic Name Dose Route Start Last Admin Trade Name Freq PRN Reason Stop Dose Admin Lorazepam 1 mg 09/08/23 07:21 09/08/23 07:25 Lorazepam 1 Mg Tablet PO 09/08/23 07:22 1 mg ONCE ONE Administration Lorazepam 1 mg 09/08/23 12:35 09/08/23 12:42 Lorazepam 1 Mg Tablet PO 09/08/23 12:36 1 mg ONCE ONE Administration Olanzapine 10 mg 09/08/23 12:35 09/08/23 12:42 Olanzapine Odt 10 Mg Tab.Rapdis TRANSLINGU 09/08/23 12:36 10 mg ONCE ONE Administration Medical Decision Making Medical Decision Making [facility] Narrative: 37-year-old male with a past medical history for GERD, schizoaffective disorder, chronic constipation, ETOH abuse, asthma, presenting to the ED complaining of suicidal ideations with plan, states I have a lot of plans , increasing anxiety/panic attacks, mood fluctuations and auditory hallucinations. On exam tachycardic, NAD, nontoxic appearing. Reports SI/HI,& hallucinations. Concern for medication noncompliance and polysubstance use/ETOH use vs schizoaffective disorder. Rule out organic causes Plan: Labs, tox screen, care team consult Please refer to course for remaining clinical decision making, interpretation of labs/imaging results, and discussions with consultants and/or family members. Differential Diagnosis Differential Diagnoses: The differential diagnosis associated with the presentation includes As above Admission/Observation Consideration of admission/observation: Escalation of care including admission/observation considered Consult Healthcare Provider Management of the patient was discussed with: Behavioral Health Provider Lab Data [facility] Lab Attestation statement: I reviewed the patient's lab results. 09/08/23 05:45 09/08/23 05:45 Labs: Lab Results 09/08/23 09/08/23 Range/Units 05:45 05:46 WBC 5.3 (4.8-10.8) X10*3/uL RBC 5.02 (4.60-5.80) X10*6/uL Hgb 14.1 (14.0-18.0) g/dl Hct 41.1 L (42.0-52.0) % MCV 81.9 (80.0-98.0) fL MCH 28.1 (27.0-33.0) pg MCHC 34.3 (31.0-36.0) g/dl RDW 14.8 (11.0-16.0) % Plt Count 309 (160-400) X10*3/uL MPV 9.6 (9.4-12.4) fL Immature Gran % (Auto) 0.2 (0.0-0.4) % Neut % (Auto) 48.4 (45-73) % Lymph % (Auto) 40.6 H (20-40) % [place] % (Auto) 8.1 (2-11) % Eos % (Auto) 2.1 (0-4) % Baso % (Auto) 0.6 (0-2) % Lymph # (Auto) 2.2 (1.2-4.9) X10*3/uL [place] # (Auto) 0.4 (0.1-1.2) X10*3/uL Eos # (Auto) 0.1 (0.0-0.4) X10*3/uL Baso # (Auto) 0.0 (0.0-0.2) X10*3/uL Abs Immat Gran (auto) 0.01 (0.00-0.03) X10*3/uL Absolute Neuts (auto) 2.6 (2.0-8.3) x10*3/uL Absolute Nucleated RBC 0.000 (0.0-0.012) X10*3/uL Nucleated RBC % (auto) 0.0 (0.0-0.2) /100WBC Sodium 142 (135-145) mmol/L Potassium 3.7 (3.3-5.1) mmol/L Chloride 109 H (96-108) mmol/L Carbon Dioxide 20 L (22-29) mmol/L Anion Gap 17 (12-20) BUN 8 L (9-16) mg/dL Creatinine 0.87 (0.5-1.4) mg/dL Estim Creat Clear Calc 170.6 Estimated GFR > 60 Random Glucose 137 H (60-115) mg/dL Calcium 8.9 (8.4-10.2) mg/dL Magnesium 1.9 (1.6-2.6) mg/dL Total Bilirubin 0.3 (0.0-1.0) mg/dL AST 48 H (5-37) U/L ALT 66 H (0-40) U/L Alkaline Phosphatase 67 (39-117) U/L Total Protein 7.4 (6.5-8.0) g/dL Albumin 3.8 (3.5-5.0) g/dL Urine Color Yellow Urine Appearance Clear Urine pH 6.0 (5.0-9.0) Ur Specific [place] 1.015 (1.005-1.025) Urine Protein Negative (Neg-Trace) mg/dL Urine Glucose (UA) Negative (Negative) mg/dL Urine Ketones Negative (Negative) mg/dL Urine Blood Negative (Negative) Urine Nitrite Negative (Negative) Ur Leukocyte Esterase Negative (Negative) Urine Opiates Screen Not Detected (Not Detect) Ur Buprenorphine Scrn Not Detected (Not Detect) ng/mL Ur Oxycodone Screen Not Detected (Not Detect) ng/mL Urine Methadone Screen Not Detected (Not Detect) ng/mL Urine Fentanyl Screen Not Detected (Not Detect) Ur Barbiturates Screen Not Detected (Not Detect) Ur Phencyclidine Scrn Not Detected (Not Detect) Ur Amphetamines Screen Not Detected (Not Detect) U Benzodiazepines Scrn Not Detected (Not Detect) Urine Cocaine Screen Not Detected (Not Detect) U Marijuana (THC) Screen Not Detected (Not Detect) Ethyl Alcohol 26 mg/dL Radiology Impression Discussion of test interpretation with radiology: I have reviewed the radiologist's reading. External Record Review External record reviewed: Inpatient record, Office record, Outpatient record, Prior outpatient labs, Prior outpatient radiology, Primary care record and Outside ED record Tests considered The following testing was considered but not selected: As above Chronic Conditions Patient?s care impacted by: Other Social Determinants Patient?s care significantly limited by Social Determinants of Health including: Inadequate housing, Low income, Alcoholism and drug addiction in family and Problems related to primary support group Discharge Plan Discharge Clinical Impression: Schizoaffective disorder, Suicidal ideation, Acute anxiety, Homicidal ideations Patient Disposition: Still a Patient Interventions: [place]-Suicide Risk Severity Scale Last Done: 09/08/23 05:47
--- NOTE | 2023-09-08 11:39 | MHC.CARE ---
[facility] auth is as follows. Jesus Alberto from [facility] approved 6 days. 09/07-09/12 with review on the . Auth#[id number]
[2023-09-08] MEDS: OLANZapine ODT 10 MG TAB.RAPDIS TRANSLINGU (12:42)
[2023-09-08 15:35] VITALS: BP 183/92; PULSE 105; RESP 18; TEMP 36.5; O2SAT 97
[2023-09-08 15:40] VITALS: BMI 47.6
[2023-09-08] MEDS: hydrOXYzine HCL 50 MG TABLET PO ×2 (16:15→20:09)
--- NOTE | 2023-09-08 17:48 | PC.ADMIT ---
Mr. Villar was admitted from the pod to room 322-1 at 3:35pm for psychosis, unspecified. He signed a CV upon admission. He is a SBM aged 37 who identifies as bisexual and uses he/ him pronouns. Per crisis report, Mr. Villar brought himself to the Emergency room early this morning for suicidal ideation, reporting to them that he has, many plans . In addition per the crisis report, he is a smoker and drinker but on the unit, he reported to this script writer that he quit tobacco 3 months ago. He reports that he drinks 10+ nips of whiskey per day and his last drink was yesterday however his tox screen was negative. He said he stopped his meds about 3 months ago. He also reports a history of A/V hallucinations which are currently active and manifest in the form of derogatory, self loathing comments such as, you are stupid, you are a pussy, you are retarded. He endorses active suicidal ideation but states he is safe on the unit and can seek out staff if the ideation intensifies or he starts thinking about a plan. Additionally, Mr. Villar is a moderate fall risk and at 5'11 at 341lbs, he ambulates slowly and suffers with asthma. He also reported to this script writer that he is pre-diabetic but on no meds or POC at this time. CIWA ordered q 4 hours and he scored a 2 upon admission (for anxiety). Much of the admission assessment was quite difficult to complete as he was continually falling asleep while sitting up and needed to be awakened to answer each question. He is a heavy snorer and denies having sleep apnea but this should be reassessed when he is more alert. Admission BP= 183/92, pulse= 105 via automated cuff. This script writer re-checked his BP with a manual cuff after his admission assessment and was 160/92 at approximately 5:15pm.
[2023-09-08 20:00] VITALS: BP 141/69; PULSE 110; RESP 18; TEMP 36.8; O2SAT 95
[2023-09-08] MEDS: cloNIDine HCL 0.1 MG TABLET PO (20:09)
[2023-09-08] MEDS: traZODone HCL 50 MG TABLET PO (20:09)
[2023-09-08] MEDS: risperiDONE 1 MG TABLET PO (20:09)
[2023-09-09 08:00] VITALS: BP 139/83; PULSE 114; RESP 14; TEMP 37.1; O2SAT 95
[2023-09-09] MEDS: hydrOXYzine HCL 50 MG TABLET PO ×3 (09:01→20:39)
[2023-09-09] MEDS: risperiDONE 1 MG TABLET PO ×2 (09:01→20:40)
[2023-09-09] MEDS: Amphetamine Mixed Salts 10 MG TABLET 30 MG PO (09:01)
[2023-09-09 09:05] LABS: Cholesterol 196 mg/dL (<200); HDL Cholesterol 67 mg/dL (>40); LDL Cholesterol Calculated 79 mg/dL (<100); Triglycerides 251 mg/dL (<150)
[2023-09-09 09:22] LABS: Free T4 (Free Thyroxine) 0.73 ng/dL (0.71-1.85); Thyroid Stimulating Hormone 1.08 uIU/mL (0.32-4.0)
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
[2023-09-09 09:35] LABS: Folate 12.4 ng/mL (> or = 4.0); Vitamin B12 373 pg/mL (200-900)
[2023-09-09 10:21] LABS: Estimated Average Glucose 154 mg/dL
--- NOTE | 2023-09-09 11:54 | PC.NURSE ---
Patient submitted 3 day note
[2023-09-09 12:27] VITALS: BP 167/105
[2023-09-09] MEDS: LORazepam 1 MG TABLET PO (12:27)
[2023-09-09] MEDS: cloNIDine HCL 0.1 MG TABLET PO ×2 (12:27→20:39)
[2023-09-09] MEDS: Acetaminophen 325 MG TABLET 650 MG PO (15:58)
[2023-09-09 20:30] VITALS: BP 140/80; PULSE 120; RESP 16; TEMP 36.9; O2SAT 96
[2023-09-09 20:39] VITALS: BP 140/80
[2023-09-09] MEDS: traZODone HCL 50 MG TABLET PO (20:39)
[2023-09-09 22:40] VITALS: BP 129/78; PULSE 109
[2023-09-10] MEDS: LORazepam 1 MG TABLET PO (00:04)
[2023-09-10] MEDS: Magnesium Hydrox/Alum Hydrox 30 ML ORAL.SUSP PO ×2 (06:53→16:44)
[2023-09-10 08:00] VITALS: BP 126/71; PULSE 108; RESP 14; TEMP 36.4; O2SAT 94
--- NOTE | 2023-09-10 08:41 | HO.PSYCHPN ---
Subjective Subjective Date of Service: 09/10/23 Reason For Visit: mental health crisis Subjective Notes: Conditional Voluntary Interim History: Patient was seen and discussed in rounds today. Records and plans were reviewed. He has been doing better but continues to complain of auditory and some visual hallucinations. He denies any side effects to his medications. I will increase the Risperdal to 2 mg b.i.d.. He is scoring minimally on his CIWA and Ativan protocol was ordered. Eating adequately. No SI. Medication Compliance: Yes Review of Systems Review of Systems Yes all other systems are reviewed and are negative Mental Status Exam Mental Status Exam Narrative: In today's visit he is alert, oriented and pleasant. Normal speech. Good eye contact. Affect is appropriate. No acute observable signs of psychosis but admits to AVH. No active SI. Cognitively is intact. Judgment is intact. No abnormalities of gait. Can move all limbs. Diagnostics Vital Signs (24Hr): Vital Signs - 24 hr 09/09/23 12:27 09/09/23 20:30 09/09/23 20:39 Temperature 98.5 F Pulse Rate 120 H Respiratory Rate 16 Blood Pressure 167/105 H 140/80 H 140/80 H Pulse Oximetry 96 Oxygen Delivery Method Room Air 09/09/23 22:40 09/10/23 08:00 Temperature 97.6 F Pulse Rate 109 H 108 H Respiratory Rate 14 Blood Pressure 129/78 126/71 Pulse Oximetry 94 Oxygen Delivery Method Room Air BMI result Body Mass Index 47.6 Labs 09/08/23 05:45 09/08/23 05:45 Labs: Laboratory Results - last 48 hr 09/09/23 07:54 Estimat Average Glucose 154 Hemoglobin A1c % 7.0 H Triglycerides 251 H Cholesterol 196 LDL Cholesterol, Calc 79 HDL Cholesterol 67 Vitamin B12 373 Folate 12.4 TSH 1.08 Free T4 0.73 Medications Medications Current Medications Acetaminophen (Acetaminophen 325 Mg Tablet) 650 mg PO Q6H PRN PRN Reason: Headache/Pain Mild Scale (1-3) Last Admin: 09/09/23 15:58 Dose: 650 mg Al Hydroxide/Mg Hydroxide (Magnesium Hydrox/Alum Hydrox 30 Ml Oral.Susp) 30 ml PO Q6H PRN PRN Reason: Heartburn/Nausea Last Admin: 09/10/23 06:53 Dose: 30 ml Albuterol Sulfate (Albuterol Sulfate 90 Mcg 8 Gm Inhaler) 2 puff INHALE RQ4H PRN PRN Reason: Shortness of Breath/Wheezing Amphetamine/Dextroamphetamine (Amphetamine Mixed Salts 10 Mg Tablet) 35 mg PO DAILY EDER Clonidine HCl (Clonidine Hcl 0.1 Mg Tablet) 0.1 mg PO Q4H PRN PRN Reason: HTN Last Admin: 09/09/23 20:39 Dose: 0.1 mg Hydroxyzine HCl (Hydroxyzine Hcl 50 Mg Tablet) 50 mg PO TID EDER Last Admin: 09/09/23 20:39 Dose: 50 mg Lorazepam (Lorazepam 1 Mg Tablet) 1 mg PO DAILY PRN PRN Reason: Anxiety Last Admin: 09/10/23 00:04 Dose: 1 mg Lorazepam (Lorazepam 1 Mg Tablet) 1 mg PO Q4H PRN PRN Reason: Breakthrough alcohol withdrawa Stop: 09/14/23 08:13 Magnesium Hydroxide (Milk Of Magnesia 30 Ml Oral.Susp) 30 ml PO DAILY PRN PRN Reason: Constipation Nicotine Polacrilex (Nicotine Polacrilex 2 Mg Gum) 4 mg BUCCAL Q2H PRN PRN Reason: Nicotine Cravings Risperidone (Risperidone 2 Mg Tablet) 2 mg PO BID [facility] Trazodone HCl (Trazodone Hcl 50 Mg Tablet) 50 mg PO BEDTIME [facility] Allergies Allergies Allergy/AdvReac Type Severity Reaction Status Date / Time cat dander Allergy Severe Itchy Eyes Verified 09/08/23 05:32 No Known Drug Allergies Allergy Severe none Verified 09/08/23 05:32 Seasonal Allergies Allergy Intermediate snee Verified 09/08/23 05:32 pineapple Allergy Itching Verified 09/08/23 05:32 Assessment & Plan Assessment & Plan (1) Schizoaffective disorder: Status: Acute Code(s): F25.9 - Schizoaffective disorder, unspecified (2) Suicidal ideation: Status: Acute Code(s): R45.851 - Suicidal ideations Plan Patient was seen and evaluated and meets criteria for IP LOC for safet09/08: Continue current regimen and plansy and stabilization. Current medication was continued and placed on Risperdal 1 mg b.i.d.. Questions about Risperdal discussed. Side effects discussed. Admission workup to be done. Labs were reviewed. He will meet with his treatment team on 09/11/202309/09: Continue current regimen and plans. Increased Risperdal to 2 mg b.i.d.. Reason for continued inpatient stay Substantial Risk for: med/psych decompensation Time Spent With Patient Time: Total time managing care of this patient today ____ minutes.
[2023-09-10] MEDS: Amphetamine Mixed Salts 10 MG TABLET 35 MG PO (08:50)
[2023-09-10] MEDS: risperiDONE 2 MG TABLET PO ×2 (08:51→20:06)
[2023-09-10] MEDS: hydrOXYzine HCL 50 MG TABLET PO ×3 (08:51→20:06)
[2023-09-10 10:49] VITALS: BP 129/74
[2023-09-10] MEDS: Furosemide 20 MG TABLET PO (10:49)
[2023-09-10 19:54] VITALS: BP 133/80; PULSE 127; RESP 20; TEMP 36.9; O2SAT 95
[2023-09-10] MEDS: traZODone HCL 50 MG TABLET PO ×2 (20:06→22:28)
[2023-09-11 07:38] VITALS: BP 140/100; PULSE 114; RESP 16; TEMP 36.8; O2SAT 96
[2023-09-11] MEDS: Furosemide 20 MG TABLET PO (08:32)
[2023-09-11] MEDS: Amphetamine Mixed Salts 10 MG TABLET 35 MG PO (08:36)
--- NOTE | 2023-09-11 09:03 | PC.NURSE ---
Pt refusing all medications r/t beliefs that medications are causing his bilateral edema. BP 140/100, P14. Pt offered Clonidine and refused. Pt was verbally explosive and swatted water pitcher off the table. pt upset there is no ice cream snacks. Pt offered several alternatives, but only became angrier with interaction. Staff provided pt space and notified.
--- NOTE | 2023-09-11 17:12 | HO.PSYCHPN ---
Subjective Subjective Date of Service: 09/11/23 Reason For Visit: mental health crisis Subjective Notes: 3 Day Interim History: Reviewed with Dr. Camarillo. Pt reports feeling anxious and depressed ; pt reports suicidal ideation with no plan. pt stated, I'm suicidal because look at me. I can feel my stomach hanging over my legs. I live in [place]. I get bullied . Pt reports auditory hallucinations of his mother which pt reports he hates ; pt reports visual hallucinations of people in my face and running my pockets . 3 day up on 09/13/23 Increased lasix to 40mg PO daily; pt's home medications. decreased risperidal to 1mg PO BID. Start Thorazine 50mg PO bedtime;reviewed risks/benefits with pt; pt agreed to trial. Medication Compliance: Yes Side effects from medications: No Attending Groups: Intermittent Review of Systems Constitutional: Reports as per HPI Eyes: Reports as per HPI Reports as per HPI Cardiovascular: Reports as per HPI Respiratory: Reports as per HPI Gastrointestinal: Reports as per HPI Genitourinary: Reports as per HPI Musculoskeletal: Reports as per HPI Skin/Breast: Reports as per HPI Reports as per HPI Psychiatric: Reports as per HPI Endocrine: Reports as per HPI Hematologic/Lymphatic: Reports as per HPI Allergic/Immunologic: Reports as per HPI Mental Status Exam Mental Status Exam Narrative: Pt is alert and oriented; behavior is cooperative and calm; dressed in casual attire; mood is described as anxious and depressed ; eye contact appropriate; Speech is normal rate, volume and not pressured; thought process is organized; Thought content is on tx; denies HI. Pt reports suicidal ideation with no plan. Pt reports auditory and visual hallucinations. Diagnostics Vital Signs (24Hr): Vital Signs - 24 hr 09/10/23 19:54 09/11/23 07:38 Temperature 98.4 F 98.3 F Pulse Rate 127 H 114 H Respiratory Rate 20 16 Blood Pressure 133/80 140/100 H Pulse Oximetry 95 96 Oxygen Delivery Method Room Air Room Air BMI result Body Mass Index 47.6 Labs 09/08/23 05:45 09/08/23 05:45 Medications Medications Current Medications Acetaminophen (Acetaminophen 325 Mg Tablet) 650 mg PO Q6H PRN PRN Reason: Headache/Pain Mild Scale (1-3) Last Admin: 09/09/23 15:58 Dose: 650 mg Al Hydroxide/Mg Hydroxide (Magnesium Hydrox/Alum Hydrox 30 Ml Oral.Susp) 30 ml PO Q6H PRN PRN Reason: Heartburn/Nausea Last Admin: 09/10/23 16:44 Dose: 30 ml Albuterol Sulfate (Albuterol Sulfate 90 Mcg 8 Gm Inhaler) 2 puff INHALE RQ4H PRN PRN Reason: Shortness of Breath/Wheezing Amphetamine/Dextroamphetamine (Amphetamine Mixed Salts 10 Mg Tablet) 35 mg PO DAILY EDER Last Admin: 09/11/23 08:36 Dose: 35 mg Chlorpromazine HCl (Chlorpromazine Hcl 25 Mg Tablet) 50 mg PO BEDTIME EDER Clonidine HCl (Clonidine Hcl 0.1 Mg Tablet) 0.1 mg PO Q4H PRN PRN Reason: HTN Last Admin: 09/09/23 20:39 Dose: 0.1 mg Furosemide (Furosemide 40 Mg Tablet) 40 mg PO DAILY EDER; Protocol Hydroxyzine HCl (Hydroxyzine Hcl 50 Mg Tablet) 50 mg PO TID EDER Last Admin: 09/11/23 14:55 Dose: Not Given Lorazepam (Lorazepam 1 Mg Tablet) 1 mg PO DAILY PRN PRN Reason: Anxiety Last Admin: 09/10/23 00:04 Dose: 1 mg Lorazepam (Lorazepam 1 Mg Tablet) 1 mg PO Q4H PRN PRN Reason: Breakthrough alcohol withdrawa Stop: 09/14/23 08:13 Magnesium Hydroxide (Milk Of Magnesia 30 Ml Oral.Susp) 30 ml PO DAILY PRN PRN Reason: Constipation Nicotine Polacrilex (Nicotine Polacrilex 2 Mg Gum) 4 mg BUCCAL Q2H PRN PRN Reason: Nicotine Cravings Risperidone (Risperidone 1 Mg Tablet) 1 mg PO BID EDER Trazodone HCl (Trazodone Hcl 50 Mg Tablet) 50 mg PO BEDTIME [facility] Last Admin: 09/10/23 22:28 Dose: 50 mg Allergies Allergies Allergy/AdvReac Type Severity Reaction Status Date / Time cat dander Allergy Severe Itchy Eyes Verified 09/08/23 05:32 No Known Drug Allergies Allergy Severe none Verified 09/08/23 05:32 Seasonal Allergies Allergy Intermediate snee Verified 09/08/23 05:32 pineapple Allergy Itching Verified 09/08/23 05:32 Assessment & Plan Assessment & Plan (1) Schizoaffective disorder: Status: Acute Code(s): F25.9 - Schizoaffective disorder, unspecified (2) Suicidal ideation: Status: Acute Code(s): R45.851 - Suicidal ideations Plan Patient was seen and evaluated and meets criteria for IP LOC for safet09/08: Continue current regimen and plansy and stabilization. Current medication was continued and placed on Risperdal 1 mg b.i.d.. Questions about Risperdal discussed. Side effects discussed. Admission workup to be done. Labs were reviewed. He will meet with his treatment team on 09/11/202309/09: Continue current regimen and plans. Increased Risperdal to 2 mg b.i.d.. 09/10: Pt reports feeling anxious and depressed ; pt reports suicidal ideation with no plan. pt stated, I'm suicidal because look at me. I can feel my stomach hanging over my legs. I live in [place]. I get bullied . Pt reports auditory hallucinations of his mother which pt reports he hates ; pt reports visual hallucinations of people in my face and running my pockets . 3 day up on 09/13/23 Increased lasix to 40mg PO daily; pt's home medications. decreased risperidal to 1mg PO BID. Start Thorazine 50mg PO bedtime;reviewed risks/benefits with pt; pt agreed to trial. Patient educated on: diagnosis, medication risk/benefits and therapeutic strategies Informed Consent: understands Reason for continued inpatient stay Substantial Risk for: harm to self and med/psych decompensation Time Spent With Patient Time: Total time managing care of this patient today _30___ minutes.
--- NOTE | 2023-09-11 17:29 | PC.NURSE ---
Pt has new order for DONNELL stockings on lower bilateral legs. Pt measured for TEDS, 31cm x 51 cm. XL stockings placed in pt room, will attempt to place on pt in the am.
[2023-09-11 20:00] VITALS: BP 137/86; PULSE 120; RESP 18; TEMP 36.9; O2SAT 96
--- NOTE | 2023-09-11 23:21 | PC.NURSE ---
Addendum entered by Bárbara Carver 09/11/23 23:31: Danielle approached [facility] and requested HS meds. Given without problems. Original Note: Danielle was offered HS meds x 3, continues to decline. I'm not tired! When I'm done with what I'm doing! Continues to sit at table in the corner, eating, self dialogue. Prescriber updated on refusals. NNO>
[2023-09-11] MEDS: chlorproMAZINE HCl 25 MG TABLET 50 MG PO (23:26)
[2023-09-11] MEDS: risperiDONE 1 MG TABLET PO (23:27)
[2023-09-11] MEDS: traZODone HCL 50 MG TABLET PO (23:27)
[2023-09-11] MEDS: hydrOXYzine HCL 50 MG TABLET PO (23:27)
[2023-09-12] MEDS: Acetaminophen 325 MG TABLET 650 MG PO (01:05)
[2023-09-12 08:00] VITALS: BP 143/83; PULSE 108; RESP 18; TEMP 36.4; O2SAT 96
[2023-09-12] MEDS: Furosemide 40 MG TABLET PO (08:34)
[2023-09-12] MEDS: Amphetamine Mixed Salts 10 MG TABLET 35 MG PO (08:35)
[2023-09-12] MEDS: Magnesium Hydrox/Alum Hydrox 30 ML ORAL.SUSP PO (15:14)
--- NOTE | 2023-09-12 15:19 | HO.PSYCHPN ---
Subjective Subjective Date of Service: 09/12/23 Reason For Visit: mental health crisis Subjective Notes: 3 Day Interim History: Reviewed with Dr. Camarillo. Pt stated, I'm anxious about leaving to see if I can stay sober. I'm telling myself things will be better and that I have to pray. I'm trying to be optimistic . Pt future oriented during conversation. Pt stated, I want to be . I would get help before trying to do anything. I plan on leaving here and achieving my goals of traveling, following up with my recovery manager, staying sober and getting a home health aid. I don't want to drink alcohol because it makes me paranoid . pt reports passive suicidal ideation with no plan. pt denies HI/VH/AH. Pt reports sleeping better with thorazine. 3 day notice up tomorrow. Decreased risperidal to 0.5mg PO BID. DC CIWA; pt no longer having symptoms. Medication Compliance: Yes Side effects from medications: No Attending Groups: Intermittent Review of Systems Constitutional: Reports as per HPI Eyes: Reports as per HPI Reports as per HPI Cardiovascular: Reports as per HPI Respiratory: Reports as per HPI Gastrointestinal: Reports as per HPI Genitourinary: Reports as per HPI Musculoskeletal: Reports as per HPI Skin/Breast: Reports as per HPI Reports as per HPI Psychiatric: Reports as per HPI Endocrine: Reports as per HPI Hematologic/Lymphatic: Reports as per HPI Allergic/Immunologic: Reports as per HPI Mental Status Exam Mental Status Exam Narrative: Pt is alert and oriented; behavior is cooperative and calm; dressed in casual attire; mood is described as anxious and depressed ; eye contact appropriate; Speech is normal rate, volume and not pressured; thought process is organized, future oriented; Thought content is on tx; denies HI/AH/VH. Pt reports passive suicidal ideation with no plan. Diagnostics Vital Signs (24Hr): Vital Signs - 24 hr 09/11/23 20:00 09/12/23 08:00 Temperature 98.4 F 97.6 F Pulse Rate 120 H 108 H Respiratory Rate 18 18 Blood Pressure 137/86 143/83 H Pulse Oximetry 96 96 Oxygen Delivery Method Room Air Room Air BMI result Body Mass Index 47.6 Labs 09/08/23 05:45 09/08/23 05:45 Medications Medications Current Medications Acetaminophen (Acetaminophen 325 Mg Tablet) 650 mg PO Q6H PRN PRN Reason: Headache/Pain Mild Scale (1-3) Last Admin: 09/12/23 01:05 Dose: 650 mg Al Hydroxide/Mg Hydroxide (Magnesium Hydrox/Alum Hydrox 30 Ml Oral.Susp) 30 ml PO Q6H PRN PRN Reason: Heartburn/Nausea Last Admin: 09/12/23 15:14 Dose: 30 ml Albuterol Sulfate (Albuterol Sulfate 90 Mcg 8 Gm Inhaler) 2 puff INHALE RQ4H PRN PRN Reason: Shortness of Breath/Wheezing Amphetamine/Dextroamphetamine (Amphetamine Mixed Salts 10 Mg Tablet) 35 mg PO DAILY EDER Last Admin: 09/12/23 08:35 Dose: 35 mg Chlorpromazine HCl (Chlorpromazine Hcl 25 Mg Tablet) 50 mg PO BEDTIME EDER Last Admin: 09/11/23 23:26 Dose: 50 mg Clonidine HCl (Clonidine Hcl 0.1 Mg Tablet) 0.1 mg PO Q4H PRN PRN Reason: HTN Last Admin: 09/09/23 20:39 Dose: 0.1 mg Furosemide (Furosemide 40 Mg Tablet) 40 mg PO DAILY EDER; Protocol Last Admin: 09/12/23 08:34 Dose: 40 mg Hydroxyzine HCl (Hydroxyzine Hcl 50 Mg Tablet) 50 mg PO TID EDER Last Admin: 09/12/23 15:14 Dose: Not Given Lorazepam (Lorazepam 1 Mg Tablet) 1 mg PO DAILY PRN PRN Reason: Anxiety Last Admin: 09/10/23 00:04 Dose: 1 mg Lorazepam (Lorazepam 1 Mg Tablet) 1 mg PO Q4H PRN PRN Reason: Breakthrough alcohol withdrawa Stop: 09/14/23 08:13 Magnesium Hydroxide (Milk Of Magnesia 30 Ml Oral.Susp) 30 ml PO DAILY PRN PRN Reason: Constipation Nicotine Polacrilex (Nicotine Polacrilex 2 Mg Gum) 4 mg BUCCAL Q2H PRN PRN Reason: Nicotine Cravings Risperidone (Risperidone 1 Mg Tablet) 1 mg PO BID [facility] Last Admin: 09/12/23 08:37 Dose: Not Given Trazodone HCl (Trazodone Hcl 50 Mg Tablet) 50 mg PO BEDTIME EDER Last Admin: 09/11/23 23:27 Dose: 50 mg Allergies Allergies Allergy/AdvReac Type Severity Reaction Status Date / Time cat dander Allergy Severe Itchy Eyes Verified 09/08/23 05:32 No Known Drug Allergies Allergy Severe none Verified 09/08/23 05:32 Seasonal Allergies Allergy Intermediate snee Verified 09/08/23 05:32 pineapple Allergy Itching Verified 09/08/23 05:32 Assessment & Plan Assessment & Plan (1) Schizoaffective disorder: Status: Acute Code(s): F25.9 - Schizoaffective disorder, unspecified (2) Suicidal ideation: Status: Acute Code(s): R45.851 - Suicidal ideations Plan Patient was seen and evaluated and meets criteria for IP LOC for safet09/08: Continue current regimen and plansy and stabilization. Current medication was continued and placed on Risperdal 1 mg b.i.d.. Questions about Risperdal discussed. Side effects discussed. Admission workup to be done. Labs were reviewed. He will meet with his treatment team on 09/11/202309/09: Continue current regimen and plans. Increased Risperdal to 2 mg b.i.d.. 09/10: Pt reports feeling anxious and depressed ; pt reports suicidal ideation with no plan. pt stated, I'm suicidal because look at me. I can feel my stomach hanging over my legs. I live in [place]. I get bullied . Pt reports auditory hallucinations of his mother which pt reports he hates ; pt reports visual hallucinations of people in my face and running my pockets . 3 day up on 09/13/23 Increased lasix to 40mg PO daily; pt's home medications. decreased risperidal to 1mg PO BID. Start Thorazine 50mg PO bedtime;reviewed risks/benefits with pt; pt agreed to trial. 09/11: Pt stated, I'm anxious about leaving to see if I can stay sober. I'm telling myself things will be better and that I have to pray. I'm trying to be optimistic . Pt future oriented during conversation. Pt stated, I want to be . I would get help before trying to do anything. I plan on leaving here and achieving my goals of traveling, following up with my recovery manager, staying sober and getting a home health aid. I don't want to drink alcohol because it makes me paranoid . pt reports passive suicidal ideation with no plan. pt denies HI/VH/AH. Pt reports sleeping better with thorazine. 3 day notice up tomorrow. Decreased risperidal to 0.5mg PO BID. DC CIWA; pt no longer having symptoms. Patient educated on: diagnosis, medication risk/benefits, substance abuse and therapeutic strategies Informed Consent: understands Reason for continued inpatient stay Substantial Risk for: med/psych decompensation Time Spent With Patient Time: Total time managing care of this patient today _20___ minutes.
[2023-09-12 20:00] VITALS: BP 152/84; PULSE 115; RESP 16; TEMP 37.1; O2SAT 94
[2023-09-12] MEDS: traZODone HCL 50 MG TABLET PO (23:09)
[2023-09-12] MEDS: LORazepam 1 MG TABLET PO (23:09)
[2023-09-13] MEDS: traZODone HCL 50 MG TABLET PO (02:13)
[2023-09-13 07:25] VITALS: BP 136/88; PULSE 111; RESP 16; TEMP 36.7; O2SAT 97
[2023-09-13 08:00] VITALS: BP 136/88; PULSE 111; RESP 16; TEMP 36.7; O2SAT 97
[2023-09-13] MEDS: Amphetamine Mixed Salts 10 MG TABLET 35 MG PO (08:18)
[2023-09-13 08:20] VITALS: BP 136/88
[2023-09-13] MEDS: Furosemide 40 MG TABLET PO (08:20)
--- NOTE | 2023-09-13 10:30 | P.DS_ITS ---
DS: Providers Provider Date of Service: 09/13/23 Date of admission: 09/08/23 15:11 Date of discharge: 09/13/23 Primary care physician: Livan Rosales MD Attending physician on admission: Wen Prather Attending physician on discharge: Rocky Camarillo Discharging clinician: Dina Roach DS: Diagnosis Discharge Diagnosis (1) Schizoaffective disorder: Status: Acute (2) Suicidal ideation: Status: Acute DS: Medications Discharge Medications Home Medications: Home Medications ?Medication ?Instructions ?Recorded ?Confirmed dextroamphetamine-amphetamine 30 1 tab PO DAILY 09/08/23 09/08/23 mg tablet hydroxyzine pamoate 50 mg capsule 50 mg PO TID 09/08/23 09/08/23 lorazepam 1 mg tablet 1 mg PO DAILY PRN Anxiety 09/08/23 09/08/23 risperidone 1 mg tablet 1 mg PO BID 09/08/23 09/08/23 trazodone 50 mg tablet 50 mg PO BEDTIME 09/08/23 09/08/23 Mental Status Exam Mental Status Exam Narrative: Pt is alert and oriented; behavior is cooperative and calm; dressed in casual attire; mood is described as good ; eye contact appropriate; Speech is normal rate, volume and not pressured; thought process is organized and goal directed; Thought content is on discharge; denies SI/HI/VH/AH. Data Data Completed and Pending Completed studies during hospitalization [Text1]: 09/08/23 09/08/23 09/09/23 05:45 05:46 07:54 WBC 5.3 RBC 5.02 Hgb 14.1 Hct 41.1 L MCV 81.9 MCH 28.1 MCHC 34.3 RDW 14.8 Plt Count 309 MPV 9.6 Immature Gran % (Auto) 0.2 Neut % (Auto) 48.4 Lymph % (Auto) 40.6 H [place] % (Auto) 8.1 Eos % (Auto) 2.1 Baso % (Auto) 0.6 Lymph # (Auto) 2.2 [place] # (Auto) 0.4 Eos # (Auto) 0.1 Baso # (Auto) 0.0 Abs Immat Gran (auto) 0.01 Absolute Neuts (auto) 2.6 Absolute Nucleated RBC 0.000 Nucleated RBC % (auto) 0.0 Sodium 142 Potassium 3.7 Chloride 109 H Carbon Dioxide 20 L Anion Gap 17 BUN 8 L Creatinine 0.87 Estim Creat Clear Calc 170.6 Estimated GFR > 60 Random Glucose 137 H Estimat Average Glucose 154 Hemoglobin A1c % 7.0 H Calcium 8.9 Magnesium 1.9 Total Bilirubin 0.3 AST 48 H ALT 66 H Alkaline Phosphatase 67 Total Protein 7.4 Albumin 3.8 Triglycerides 251 H Cholesterol 196 LDL Cholesterol, Calc 79 HDL Cholesterol 67 Vitamin B12 373 Folate 12.4 TSH 1.08 Free T4 0.73 Urine Color Yellow Urine Appearance Clear Urine pH 6.0 Ur Specific [place] 1.015 Urine Protein Negative Urine Glucose (UA) Negative Urine Ketones Negative Urine Blood Negative Urine Nitrite Negative Ur Leukocyte Esterase Negative Urine Opiates Screen Not Detected Ur Buprenorphine Scrn Not Detected Ur Oxycodone Screen Not Detected Urine Methadone Screen Not Detected Urine Fentanyl Screen Not Detected Ur Barbiturates Screen Not Detected Ur Phencyclidine Scrn Not Detected Ur Amphetamines Screen Not Detected U Benzodiazepines Scrn Not Detected Urine Cocaine Screen Not Detected U Marijuana (THC) Screen Not Detected Ethyl Alcohol 26 DS: Summary Hospital Course Hospital Course: Danielle is a 37-year-old , single, man who lives alone and supports himself through his father's pension. This is 1 of several psychiatric hospitalizations. He self presented to the emergency room because of suicidal ideations and having ?many plans?, anxiety and anxiety attacks. He has history of schizoaffective disorder. He has history of medication noncompliant but can not give me any reliable list of his medication list except for Adderall 30 mg. He has services through [facility]. He has had previous suicide attempts, the last in 2014 by overdosing on Adderall. He has history of substance abuse but currently and recently only alcohol up to ?10 nips a day?. He has been having trouble sleeping. He admits to auditory and visual hallucinations that are derogatory in nature. He is followed through [facility] Patient was seen and evaluated and meets criteria for LOC for safety and stabilization. Current medication was continued and placed on Risperdal 1 mg b.i.d.. Questions about Risperdal discussed. Side effects discussed. Admission workup to be done. Labs were reviewed. He will meet with his treatment team on 09/11/2023 Increased Risperdal to 2 mg b.i.d. Pt reports feeling anxious and depressed ; pt reports suicidal ideation with no plan. pt stated, I'm suicidal because look at me. I can feel my stomach hanging over my legs. I live in [place]. I get bullied . Pt reports auditory hallucinations of his mother which pt reports he hates ; pt reports visual hallucinations of people in my face and running my pockets . 3 day up on 09/13/23 Increased lasix to 40mg PO daily; pt's home medications. decreased risperidal to 1mg PO BID. Start Thorazine 50mg PO bedtime;reviewed risks/benefits with pt; pt agreed to trial. Pt stated, I'm anxious about leaving to see if I can stay sober. I'm telling myself things will be better and that I have to pray. I'm trying to be optimistic . Pt future oriented during conversation. Pt stated, I want to be . I would get help before trying to do anything. I plan on leaving here and achieving my goals of traveling, following up with my assistant golf coach, staying sober and getting a home health aid. I don't want to drink alcohol because it makes me paranoid . pt reports passive suicidal ideation with no plan. pt denies HI/VH/AH. Pt reports sleeping better with thorazine. 3 day notice up tomorrow. Decreased risperidal to 0.5mg PO BID. DC CIWA; pt no longer having symptoms. T/W spoke to patient's sister, Laura, with patient's consent. Laura stated she plans on having the patient stay with her in [place] for the week to celebrate his birthday. Laura stated, I'm not worried about him hurting himself or anyone. He just says those things when he's frustrated but wouldn't act on it . Pt reports feeling good today; pt stated, I'm looking forward to leaving. I'm planning on going to [place] and spending time with my sister for my birthday. It should be fun . Pt discussed plans to meet with his assistant golf coach and attend AA meetings to maintain sobriety. Pt reports he plans on following up with his outpatient providers. Pt denies SI/HI/VH/AH. Time spent discussing smoking cessation with patient: 3 to 10 minutes Status at Discharge Cognitive/behavioral status at discharge: Patient was interviewed prior to discharge and found to be fully oriented and without SI or HI. Patient has insight and demonstrates good judgment in terms of wanting to pursue treatment. Patient has a safety plan that includes presenting to the closest ER or calling 911 if feeling unsafe. Functional status at discharge: independent ambulation Overall status at discharge: patient is back to baseline Time Spent with Patient Time attestation: Total time managing care of this patient today _30___ minutes. Time spent: Less than 30 minutes Discharge Plan Discharge Anticipated Discharge Date/Time: 09/13/23 10:57 Patient Disposition: Home, Self-Care Discharge Diagnosis: Schizoaffective d/o Referrals: [facility]: ([facility]) Lali Loe [Other] - 09/14/23 12:00 pm (Hospital Discharge Appointment for therapy Appointment in office at [facility]) [facility] ([facility]): Shayan Neil [Other] - 09/25/23 10:20 am (Hospital Discharge Appointment Appointment in person for psychiatric medication management at [facility].) Livan Rosales MD [Primary Care Provider] - 1 Week (Dr. Rosales's office advised that they would contact patient directly to schedule follow up appointment. There were no appts available at this time so they are going to se e what they can do to get him in to see PCP as soon as possible.) Discharge Medications: New chlorpromazine 50 mg tablet 50 mg PO BEDTIME 30 Days Qty: 30 0RF lorazepam 1 mg Tablet 1 mg PO DAILY 30 Days Qty: 30 0RF furosemide 40 mg Tablet 40 mg PO DAILY 30 Days Qty: 30 0RF Protocol: Hold for SBP< HOLD for SBP < : 90 albuterol sulfate [Ventolin HFA] 90 mcg/actuation Hfa Aerosol Inhaler 2 puff inhalation RQ4H PRN (Reason: Shortness Of Breath/Wheezing) 30 Days Qty: 8.5 0RF clonidine HCl 0.1 mg Tablet 0.1 mg PO BID 30 Days Qty: 60 0RF Continued trazodone 50 mg tablet 50 mg PO BEDTIME 30 Days Qty: 30 0RF hydroxyzine pamoate 50 mg capsule 50 mg PO TID 30 Days Qty: 90 0RF dextroamphetamine-amphetamine 30 mg tablet 1 tab PO DAILY 30 Days Qty: 30 0RF Discontinued lorazepam 1 mg tablet 1 mg PO DAILY PRN (Reason: Anxiety) risperidone 1 mg tablet 1 mg PO BID Discharge Orders: Discharge Order (Routine); Ordered 09/13/23 Ordered By: Dina Roach Diet: Regular diet Activity on Discharge: As tolerated Stand Alone Forms: Patient Portal Discharge page, Community Support Print Language: Malay Care Plan Goals: Maintain mood and safe behaviors Take medications as prescribed Continue to pursue sobriety Practice coping skills Continue with outpatient providers and reach out to them as needed Health Concerns: Mood stability and behaviors Sobriety Plan of Treatment: Follow up with your PCP, psychiatric provider and other outpatient providers regarding above concerns Take medications as prescribed Assessment: Patient was interviewed prior to discharge and found to be fully oriented and without SI or HI. Patient has insight and demonstrates good judgment in terms of wanting to pursue treatment. Patient has a safety plan that includes presenting to the closest ER or calling 911 if feeling unsafe. Discharge Date/Time: 09/13/23 11:38
== END 2023-09-13 11:38 | disposition home or self-care (01) | DRG 885 ==
LOC: HO.ED 08:32 → HO.PADLT16 15:14
PROVIDERS: Physician Assistant; Admitting Provider Psychiatry & Neurology Psychiatry; Emergency Provider Emergency Medicine; PCP Internal Medicine; Responsible Provider Registered Nurse; Visit Provider Psychiatry & Neurology Psychiatry
DX: F25.9 Schizoaffective disorder, unspecified (principal); R45.851 Suicidal ideations; R45.850 Homicidal ideations; F17.210 Nicotine dependence, cigarettes, uncomplicated; K59.09 Other constipation; Z71.6 Tobacco abuse counseling; Z91.51 Personal history of suicidal behavior; F10.10 Alcohol abuse, uncomplicated; Z79.899 Other long term (current) drug therapy
CPT/HCPCS: 0241U; 36415; 80053; 80061; 80307; 81003; 82150; 82607; 82746; 83036; 83690; 83735; 84439; 84443; 85025; 93005; 96361; 96374; 99284; 99285; J2405; S9485

== ENCOUNTER → 2023-09-08 15:11 | Outpatient (BNV) | payer OTHER, SELFPAY | PROVIDERS: Admitting Provider Psychiatry & Neurology Psychiatry; Emergency Provider Emergency Medicine; PCP Internal Medicine; Visit Provider Psychiatry & Neurology Psychiatry | DX: F25.9 Schizoaffective disorder, unspecified (principal); R45.851 Suicidal ideations | CPT/HCPCS: 90792; 99232; 99238 ==

== ENCOUNTER 2023-09-15 06:17 | Outpatient (REF) | payer OTHER, SELFPAY ==
[2023-09-15 06:37] LABS: MANUAL DIFF FLAG NO
[2023-09-15 07:21] LABS: Basophils Percent Auto 0.3 % (0-2); Eosinophils Absolute Auto 0.1 X10*3/uL (0.0-0.4); Eosinophils Percent Auto 2.1 % (0-4); Hematocrit 41.8 % (42.0-52.0); Hemoglobin 14.1 g/dl (14.0-18.0); Imm Gran Abs Auto 0.01 X10*3/uL (0.00-0.03); Imm Gran Pct Auto 0.2 % (0.0-0.4); Lymphocytes Absolute Auto 2.2 X10*3/uL (1.2-4.9); Lymphocytes Percent Auto 35.6 % (20-40); Mean Corpuscular HGB Conc 33.7 g/dl (31.0-36.0); Mean Corpuscular Hemoglobin 27.6 pg (27.0-33.0); Mean Platelet Volume 9.6 fL (9.4-12.4); Monocytes Absolute Auto 0.7 X10*3/uL (0.1-1.2); Monocytes Percent Auto 10.8 % (2-11); Neutrophils Absolute Auto 3.2 x10*3/uL (2.0-8.3); Platelet Count 322 X10*3/uL (160-400); Red Cell Distribution Width 14.6 % (11.0-16.0); White Blood Count 6.3 X10*3/uL (4.8-10.8)
[2023-09-15 07:46] LABS: Estimated Average Glucose 166 mg/dL; Hemoglobin A1c % 7.4 % (<6.0)
[2023-09-15 07:49] LABS: Appearance Urine Clear; Color Urine Dark Yellow; Glucose Urine UA Negative (Negative); Leukocyte Esterase Urine Negative (Negative); Nitrite Urine Negative (Negative); Specific Gravity - Urine >= 1.030 (1.005-1.025); UMIC TRIGGER UACC YES; Urine Blood Negative (Negative); Urine Ketones Trace mg/dL (Negative); Urine Protein 30 (1+) mg/dL (Neg-Trace)
[2023-09-15 07:50] LABS: Alanine Aminotransferase 67 U/L (0-40); Alkaline Phosphatase 70 U/L (39-117); Anion Gap 15 (12-20); Aspartate Amino Transferase 69 U/L (5-37); Bilirubin Total 0.6 mg/dL (0.0-1.0); Blood Urea Nitrogen 9 mg/dL (9-16); Calcium 9.4 mg/dL (8.4-10.2); Carbon Dioxide 25 mmol/L (22-29); Chloride 105 mmol/L (96-108); Cholesterol 238 mg/dL (<200); Estimated Glomerular Filt Rate > 60; Glucose Fasting 114 mg/dL (60-99); HDL Cholesterol 59 mg/dL (>40); LDL Cholesterol Calculated 141 mg/dL (<100); Potassium 3.7 mmol/L (3.3-5.1); Sodium 141 mmol/L (135-145); Total Protein 7.6 g/dL (6.5-8.0); Triglycerides 192 mg/dL (<150)
[2023-09-15 08:01] LABS: Bacteria Urine None Seen (None Seen); Hyaline Casts Urine 0-2 /LPF (0-2); RBC Urine 0-2 /HPF (0-2); Squamous Epithelial Cell Urine 0-2 /HPF (0-2); WBC Urine 0-5 /HPF (0-5)
[2023-09-15 08:06] LABS: TSH reflex Free T4 2.26 uIU/mL (0.32-4.0); Vitamin D 25-OH Total 19.7 ng/mL (>30)
== END 2023-09-15 06:18 | disposition home or self-care (01) ==
LOC: HO.LAB 06:17
PROVIDERS: PCP Internal Medicine; Visit Provider Internal Medicine
DX: D64.9 Anemia, unspecified (principal); E78.00 Pure hypercholesterolemia, unspecified; E11.9 Type 2 diabetes mellitus without complications; E55.9 Vitamin D deficiency, unspecified; R30.0 Dysuria
CPT/HCPCS: 36415; 80053; 80061; 81001; 82306; 83036; 84443; 85025

== ENCOUNTER 2023-09-22 09:29 | Outpatient (AMB) | payer OTHER, SELFPAY ==
--- NOTE | 2023-09-22 09:29 | MHC.PC.OV ---
Vital Signs 09/22/23 09:30 Height 5 ft 11 in Weight 337 lb 0.8 oz BMI 47.0 BP 140/86 H Blood Pressure Location Lt brachial Position Sitting Pulse 114 H Pulse Source Pulse Oximeter Pulse Oximetry (%) 96 Oxygen Delivery Method Room Air Intake Visit Reasons: HDF [facility] 09/12 Acute Anxiety Intake Note: Patient is here for hospital discharge follow up. 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 He was admitted to [facility] for Suicidal ideation and Schizo-affective disorder. He was discharged home on 09/13/23. He was started on new medications: Chlorpromazine 50 mg, Lorazepam 1 mg and Clonidine 0.1 mg. Pt reports not taking his medications because of bad side effects such as Swollen feet, low back pain and hearing voices/thoughts in his head. Denies Suicide thoughts or homicidal thoughts. He has f/u with Psych 09/25/23 Advised Pt to go to Emergency room if he develops Suicidal or homicidal thoughts. Pt agreed to the plan. [facility] Medical History GERD without esophagitis Schizoaffective disorder Dyspnea Obesity Vasectomy evaluation Abdominal pain Chronic constipation Obesity (BMI 30-39.9) Weight gain Morbid obesity with BMI of 40.0-44.9, adult Annual physical exam Obese Screening for diabetes mellitus (DM) Abdominal pain Abdominal swelling Upper respiratory infection with cough and congestion Vasectomy evaluation Screening for STD (sexually transmitted disease) Screening for hypercholesterolemia COVID-19 Physical exam COVID-19 Schizoaffective disorder, bipolar type Smoker Vitamin D deficiency Pure hypercholesterolemia Elevated LFTs Alcoholism Asthma Surgical History No significant past surgical history Family History Mother No problems noted. Father No problems noted. Social History Household Members: None Household Members Other:: none Housing: Apartment Do you presently have visiting nurse or other home services: No Alcohol intake: current Alcohol intake frequency: 3 or more drinks per day Alcohol type: beer and hard liquor Patient Tobacco Use Status: Current everyday Tobacco user Tobacco use type: Cigarette Cigarette Packs Per Day: 1 Cigarettes Per Day: 20.0 e-Cigarette/Vaping Use: Former Use Second Hand Smoke Exposure: No Substance Use Type: Marijuana service: No Current occupational status: disabled Sexual orientation: Don't Know Cognitive needs: No Hearing needs: No Vision needs: No Questionnaire Thrive Questionnaire Date Thrive assessed: 09/11/23 AUDIT C Alcohol Use Questionnaire (AUDIT-C) 1. How often do you have a drink containing alcohol?: Never 3. How often do you have six or more drinks on one occasion?: Never Total Score: 0 Score Reviewed/Action Taken: Yes KITTY-7 AMB Questionnaire KITTY-7 Date KITTY - 7 assessed: 03/22/23 Source: Developed by Drs. Zay Lopez, Tonya Ornelas, Holger Bourgeois and colleagues, with an educational suellen from [employer]. Review of Systems Const All systems reviewed & are unremarkable except as noted in HPI and below Physical exam (Primary Care) Vital Signs: Last Vital Signs Pulse 114 H 09/22/23 09:30 BP 140/86 H 09/22/23 09:30 Pulse Ox 96 09/22/23 09:30 Oxygen Delivery Method Room Air 09/22/23 09:30 BMI result Body Mass Index 47.0 Tobacco/Smoking Status: Tobacco use Status Tobacco use date assessed 09/22/23 09/22/23 09:35 Patient Tobacco Use Status Current everyday Tobacco 09/22/23 09:35 Tobacco use type Cigarette 09/22/23 09:35 e-Cigarette/Vaping Use Former Use 09/22/23 09:35 Thrive Assessment: Date of Thrive Assessment Date Thrive assessed 09/11/23 09/22/23 09:35 Const General: cooperative and no acute distress Nutritional Appearance: obese Orientation/consciousness: patient oriented x3 Skin General skin exam: no rashes or lesions noted Neuro General: patient oriented x3, gait normal and moves all extremities Psych Speech and movement: Normal speech and movement present Attitude: cooperative Thought process: Racing thoughts present Thought content: suicidality, no homicidality, Paranoid delusions present (Hearing voices and bad thoughts per patient) and Hallucination(s) present auditory Judgement: Poor judgement present (Psych) Vital Signs: Last Vital Signs Pulse 114 H 09/22/23 09:30 BP 140/86 H 09/22/23 09:30 Pulse Ox 96 09/22/23 09:30 Oxygen Delivery Method Room Air 09/22/23 09:30 BMI result Body Mass Index 47.0 Const General: cooperative and no acute distress Nutritional Appearance: obese Orientation/consciousness: patient oriented x3 Skin General skin exam: no rashes or lesions noted Neuro General: patient oriented x3, gait normal and moves all extremities Psych Speech and movement: Normal speech and movement present Attitude: cooperative Thought process: Racing thoughts present Thought content: suicidality, no homicidality, Paranoid delusions present (Hearing voices and bad thoughts per patient) and Hallucination(s) present auditory Judgement: Poor judgement present (Psych) Assessment and Plan Assessment & Plan (1) Schizoaffective disorder: Code(s): F25.9 - Schizoaffective disorder, unspecified Qualifiers: Schizoaffective disorder type: other Qualified Code(s): F25.8 - Other schizoaffective disorders Plan: Pt reports hearing voices and having Bad thoughts. But refuses to take his medications due to Horrible Side effects. Advised Pt to take his medications to help eliminate bad thoughts and Hallucinations. Advised Pt to check himself to the hospital if he develops SA or SI. Pt reports understanding. He has scheduled appointment with Monday with Psych. (2) Suicidal ideation: Code(s): R45.851 - Suicidal ideations Plan: None present today. Denies SA or SI. Pt aware of the Crisis line and when to call for help. Coding Level of Care Code Est Pt Level 4 (75203) Diagnoses Other schizoaffective disorders F25.8 Schizoaffective disorder type: other Suicidal ideation R45.851 Time Spent (min) 20 Comment Spent on reviewing hospital notes and Patient education
[2023-09-22 09:30] VITALS: BP 140/86; PULSE 114; O2SAT 96; BMI 47.0
== END 2023-09-22 10:25 | disposition home or self-care (01) ==
PROVIDERS: PCP Internal Medicine; Visit Provider Nurse Practitioner Family
DX: F25.8 Other schizoaffective disorders (principal); R45.851 Suicidal ideations
CPT/HCPCS: 99214

== ENCOUNTER 2023-10-03 14:13 | Outpatient (AMB) | payer OTHER, SELFPAY ==
--- NOTE | 2023-10-03 14:28 | A.OFFVIS_ITS ---
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: No Accompanied by: Self / Same As Patient Allergies cat dander Allergy (Severe, Verified 09/22/23 09:30) Itchy Eyes No Known Drug Allergies Allergy (Severe, Verified 09/22/23 09:30) none Seasonal Allergies Allergy (Intermediate, Verified 09/22/23 09:30) snee pineapple Allergy (Verified 09/22/23 09:30) Itching Medication List - Last Reconciled 10/03/23 by Adam Baker MD albuterol sulfate 90 mcg/actuation (Ventolin HFA) 2 puffs inhalation RQ4H PRN 30 days chlorpromazine 50 mg PO BEDTIME 30 days clonidine HCl 0.1 mg PO BID 30 days dextroamphetamine-amphetamine 30 mg 1 tab PO DAILY 30 days furosemide 40 mg See Protocol PO DAILY 30 days [hand held shower head As directed] [Hip Kit with long handle As directed] hydroxyzine pamoate 50 mg PO TID 30 days lorazepam 1 mg PO DAILY 30 days [Shoe horn As directed] [Sock aid As directed] trazodone 50 mg PO BEDTIME 30 days HPI Comments Details: Danielle has been referred for evaluation of chest pain. He is morbidly obese at over 300 lb. No documented cardiac issues in the past like coronary disease or myocardial infarction or cardiomyopathy. He states he gets random chest pains even while resting. Nothing clearly exertional. He has been referred for cardiac evaluation because of his comorbidities. [facility]LY [facility] Medical History GERD without esophagitis Schizoaffective disorder Dyspnea Obesity Vasectomy evaluation Abdominal pain Chronic constipation Obesity (BMI 30-39.9) Weight gain Morbid obesity with BMI of 40.0-44.9, adult Annual physical exam Obese Screening for diabetes mellitus (DM) Abdominal pain Abdominal swelling Upper respiratory infection with cough and congestion Vasectomy evaluation Screening for STD (sexually transmitted disease) Screening for hypercholesterolemia COVID-19 Physical exam COVID-19 Schizoaffective disorder, bipolar type Smoker Vitamin D deficiency Pure hypercholesterolemia Elevated LFTs Alcoholism Asthma Surgical History No significant past surgical history Family History Mother No problems noted. Father No problems noted. Social History Household Members: None Household Members Other:: none Housing: Apartment Do you presently have visiting nurse or other home services: No Alcohol intake: current Alcohol intake frequency: 3 or more drinks per day Alcohol type: beer and hard liquor Patient Tobacco Use Status: Current everyday Tobacco user Tobacco use type: Cigarette Cigarette Packs Per Day: 1 Cigarettes Per Day: 20.0 e-Cigarette/Vaping Use: Former Use Second Hand Smoke Exposure: No Substance Use Type: Marijuana service: No Current occupational status: disabled Sexual orientation: Don't Know Cognitive needs: No Hearing needs: No Vision needs: No Review of Systems Const Denies chills, Denies daytime sleepiness, Denies fatigue, Denies fever(s), Denies poor appetite, Denies snoring, Denies stops breathing during sleep, Denies weakness, Denies weight gain and Denies weight loss Eyes Denies loss of vision ENT Denies dizziness and Denies hearing loss Card Denies chest pain, Denies irregular heart rhythm, Denies claudication, Denies leg edema, Denies lightheadedness, Denies palpitations, Denies dyspnea on exertion and Denies orthopnea Resp Denies cough, Denies excessive phlegm production, Denies dyspnea on exertion, Denies snoring and Denies wheezing GI Denies abdominal pain, Denies hematochezia, Denies change in bowel habits, Denies nausea and Denies vomiting Denies dysuria and Denies urinary frequency Musc Denies arthralgias, Denies muscle weakness, Denies numbness and Denies other Skin/Breast Denies nail changes and Denies rash Neuro Denies Abnormal speech present, Denies dizziness, Denies loss of vision, Denies memory loss, Denies numbness and Denies weakness Psych Denies depression and Denies memory loss Endo Denies fatigue and Denies palpitations Leonel/Lymph Denies easy bruising Aller/Immun Denies wheezing Physical Exam Vital Signs: Last Vital Signs Pulse 122 H 10/03/23 14:30 BP 138/80 10/03/23 14:30 BMI result Body Mass Index 48.0 Const General: comfortable and no acute distress Orientation/consciousness: patient oriented x3 HEENT Other: Unremarkable Head: Yes normal to inspection Neck Neck: Yes normal visual inspection Chest Chest palpation & inspection: normal inspection of the chest Resp Auscultation: clear to auscultation bilaterally Cardio Palpation: normal PMI Heart sounds: S1 normal heart sound present, S2 normal heart sound present, no gallops, no murmurs and no rubs GI Palpation (GI): Soft to palpation Back/Spine/Pelvis Other: unremarkable Skin General skin exam: no rashes or lesions noted Neuro General: patient oriented x3 Speech: No Abnormal speech present Extrem General: Yes normal to inspection Psych Mental Status: mental status grossly normal Office Procedures EKG Details: EKG with sinus tachycardia at 122/Min; no significant ST-T changes and otherwise [place]remarkable[place] [address]-[id number], Complete Assessment & Plan Assessment & Plan (1) Precordial chest pain: Code(s): R07.2 - Precordial pain Category: Medical Plan Atypical sounding chest pain but cardiac risk factors include morbid obesity and history of smoking. He also seems to have chronic sinus tachycardia which could be related to obesity. In a prior echocardiogram from last year, preserved LVEF at 65-70%; suspected septal hypertrophy; small LVOT/intraventricular gradient otherwise unremarkable. Study was limited due to patient cooperation. In the stress test from 2021, he was able to exercise for 7.9 METS, no angina no clear EKG evidence of ischemia. Prolonged sinus tachycardia after the stress test. Due to his recent complaints of chest pain, we will plan on repeating stressing. However, overall it does sound atypical. Follow-up after the above. Orders: Orders CA echo transthoracic complete Today R07.2 - Precordial pain NM cardiolite stress test Today R07.2 - Precordial pain CA stress test Today R07.2 - Precordial pain Coding Level of Care Code New Pt Level 4 (90214) Diagnoses Precordial chest pain R07.2 CPT Codes EKG - CPT: 28289-[id number], Complete ([id number])
[2023-10-03 14:30] VITALS: BP 138/80; PULSE 122; BMI 48.0
== END 2023-10-03 14:49 | disposition home or self-care (01) ==
PROVIDERS: PCP Internal Medicine; Visit Provider Internal Medicine
DX: R07.2 Precordial pain (principal); R00.0 Tachycardia, unspecified
CPT/HCPCS: 93010; 99214

== ENCOUNTER → 2023-10-03 14:13 | Outpatient (BNVA) | payer OTHER, SELFPAY | PROVIDERS: PCP Internal Medicine; Visit Provider Internal Medicine | DX: R07.2 Precordial pain (principal) | CPT/HCPCS: 93005; 99212 ==

== ENCOUNTER 2023-10-10 09:44 | Outpatient (AMB) | payer OTHER, SELFPAY ==
--- OUTSIDE RECORDS SUMMARY | 2023-10-10 09:45 | XMS_ITS | Continuity of Care Document ---
Author Organization [facility] Address [address] [place] [address]- Care Team Providers Care Jackhammer Operator Name Role Phone Not on Staff, PCP Primary Care Physician Unavail able [facility] 01/27/[address] [address]- [facility] Encounter Diagnosis Leg cramp(Final) - 01/28/19 Lightheaded(Final) - 01/28/19 Shortness of breath(Final) - 01/28/19 Discharge Disposition: A-D/C Home Attending Physician: Rian Bishop MD Admitting Physician: Rian Bishop MD Referring Physician: Not on Staff, Referring MD Allergies, Adverse Reactions, Alerts Substance Reaction Severity Status Cats 1 Active 1itchy eyes, throat irritation, runny nose Immunizations Given and Recorded Vaccine Date Status Refusal Reason influenza virus vaccine, inactivated 12/21/17 Give n influenza virus vaccine, inactivated 1 10/31/16 Gi nish influenza virus vaccine, inactivated 2 10/23/08 Gi nish Hepatitis A-Hepatitis B Vaccine 3 12/16/10 Given pneumococcal 23-valent vaccine 4 07/23/10 Given tetanus/diphtheria/pertussis, acel(Tdap) 08/06/08 Given Influenza Vaccine (oldterm) 5 12/06/07 Given Measles/Mumps/Rubella Virus Vaccine 6 05/16/05 Rec orded Measles/Mumps/Rubella Virus Vaccine 7 09/18/91 Rec orded Measles/Mumps/Rubella Virus Vaccine 05/22/88 Recor ded Varicella Virus Vaccine 8 04/12/05 Recorded Varicella Virus Vaccine 9 04/12/05 Recorded Varicella Virus Vaccine 10 07/12/02 Recorded hepatitis B pediatric vaccine 11 04/13/00 Recorded hepatitis B pediatric vaccine 12 07/31/99 Recorded hepatitis B pediatric vaccine 13 06/30/99 Recorded tetanus-diphtheria toxoids (Td) 14 06/30/99 Record ed Poliovirus Vaccine, Inactivated 15 04/28/93 Record ed Poliovirus Vaccine, Inactivated 16 05/17/89 Record ed Poliovirus Vaccine, Inactivated 17 09/21/88 Record ed Poliovirus Vaccine, Inactivated 18 03/03/88 Record ed diphtheria/tetanus/pertussis, acel(DTaP) 19 05/17/89 Recorded diphtheria/tetanus/pertussis, acel(DTaP) 20 07/07/88 Recorded diphtheria/tetanus/pertussis, acel(DTaP) 21 03/03/88 Recorded diphtheria/tetanus/pertussis, acel(DTaP) 22 87 Recorded diphtheria/tetanus/pertussis, acel(DTaP) 87 Recorded haemophilus b conjugate (PRP-T) vaccine 23 05/17/89 Recorded 1Admin Note: [facility] [id number] 2Admin Note: VIS GIVEN 09/23/08 indonesian 3Admin Note: 1st in series. [id number] exp 08/15/11 4Admin Note: vis 05/22 5Admin Note: VIS given 6Result Comment: [12/21/2017] JOSÉ MIGUEL MIDDLETON MA OF 05/16/05 7Result Comment: [12/21/2017] JOSÉ MIGUEL MIDDLETON MA OF 05/16/05 8Result Comment: [12/21/2017] JOSÉ MIGUEL MIDDLETON MA OF 05/16/05 9Result Comment: [12/21/2017] copy of immunization flow sheet from [facility] nurse emi estrella[12/21/2017 Uncharted] duplicate notation 10Result Comment: [12/21/2017] JOSÉ MIGUEL MIDDLETON MA OF 05/16/05 11Result Comment: [12/21/2017] JOSÉ MIGUEL MIDDLETON MA OF 05/16/05 12Result Comment: [12/21/2017] JOSÉ MIGUEL MIDDLETON MA OF 05/16/05 13Result Comment: [12/21/2017] JOSÉ MIGUEL MIDDLETON MA OF 05/16/05 14Result Comment: [12/21/2017] JOSÉ MIGUEL MIDDLETON MA OF 05/16/05 15Result Comment: [12/21/2017] JOSÉ MIGUEL MIDDLETON MA OF 05/16/05 16Result Comment: [12/21/2017] ADDIELeonor EMI, MA OF 05/16/05 17Result Comment: [12/21/2017] ADDIELeonor EMI, MA OF 05/16/05 18Result Comment: [12/21/2017] ADDIELeonor EMI, MA OF 05/16/05 19Result Comment: [12/21/2017] ADDIELeonor EMI, MA OF 05/16/05 20Result Comment: [12/21/2017] ADDIELeonor EMI, MA OF 05/16/05 21Result Comment: [12/21/2017] ADDIELeonor EMI, MA OF 05/16/05 22Result Comment: [12/21/2017] ADDIELeonor EMI, MA OF 05/16/05 23Result Comment: [12/21/2017] ADDIELeonor EMI, MA OF 05/16/05 Medications albuterol CFC free 90 mcg/inh inhalation aerosol 2, puffs, Inhalation, 4 times a day, PRN, USE NEEDED, # 1 each, Refills 4, Tot. Refills 4, Maintenance, 11/06/18 10:52:56 EDT, Aerosol, Route to Pharmacy Electronically, [id number], [facility]. Start Date: 11/06/18 Stop Date: 04/05/19 Status: Ordered benzoyl peroxide 2.5% topical liquid 1 application, Topically, 2 times a day, # 22.5 mL, 3 Refills, Maintenance, 12/05/18 10:59:42 EDT, Liquid, please d/c script for cream. this is formulary covered, 1 application Topically 2 times a day Start Date: 12/05/18 Status: Ordered finasteride 5 mg oral tablet 0.25 tablet = 1.25 mg, By Mouth, Daily, # 22.5 tablet, 1 Refills, Maintenance, 12/05/18 10:58:35 EDT, Tablet, please pre-cut Start Date: 12/05/18 Stop Date: 06/03/19 Status: Ordered multivitamin Multiple Vitamins oral tablet 1 tablet, By Mouth, Daily, # 90 tablet, 3 Refills, Maintenance, 12/05/18 10:57:05 EDT, Tablet, 1 tablet By Mouth Daily Start Date: 12/05/18 Status: Ordered Nicotine 2 mg gum 1 each = 2 mg, Chew, Every 2 hours, PRN as needed for smoking cessation, # 40 each, 3 Refills, Maintenance, 11/06/18 10:53:46 EDT, Gum Start Date: 11/06/18 Status: Ordered nicotine 21 mg/24 hr transdermal film, extended release 1 patch, Topically, Daily, # 30 patch, 5 Refills, Maintenance, 11/06/18 10:53:25 EDT, Patch, pleasenotify our clinic if this isn't covered., 1 patch Topically Daily Start Date: 11/06/18 Status: Ordered Problem List Condition Effective Dates Status Health Status Inform ant Allergy(Confirmed) 1 Active Anxiety disorder(Confirmed) Active Asthma(Confirmed) Active Attention deficit hyperactiv ity disorder(Confirmed) Active 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 Intermittent explosive disorder(Confirmed) Active Mood disorder(Confirmed) Active 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 Psychotic disorder(Confirmed) Active Tobacco abuse(Confirmed) Active 1animal dander Vital Signs Most recent to oldest [Reference Range]: 1 2 Oxygen Saturation [94-100 %] 100 % (01/27/19 10:25 PM) 99 % (01/27/19 7:52 PM) Pulse Rate [55-90 bpm] 98 bpm *H* (01/27/19 10:25 PM) 99 bpm *H* (01/27/19 7:52 PM) Blood Pressure [90-138/55-84 mm Hg] 142/ 81mm Hg *H* (01/27/19 10:25 PM) 139/96mm Hg *H* (01/27/19 7:52 PM) Respiratory Rate [16-30 br/min] 16 br/mi n (01/27/19 10:25 PM) 16 br/min (01/27/19 7:52 PM) Temperature [96.8-100.4 DegF] 98.1 DegF (01/27/19 10:25 PM) 97.4 DegF (01/27/19 7:52 PM) Mode of Delivery (Oxygen) Room air (01/27/19 10:25 PM) Room air (01/27/19 7:52 PM) Blood pressure sites Arm, left (01/27/19 10:25 PM) Arm, right (01/27/19 7:52 PM) Temperature Route Oral (01/27/19 10:25 PM) Oral (01/27/19 7:52 PM) Social History Social History Type Response Tobacco Other: PT STATES SMO KE A PACK A DAY AND WANTS TO QUIT. Type: Cigarettes. Previous treatment: Counseling, Nicotine replacement. Sex
--- OUTSIDE RECORDS SUMMARY | 2023-10-10 09:45 | XMS_ITS | Continuity of Care Document ---
Author Organization [facility] ter Address [address] [place] [id number]- Care Team Providers Care Director Of Student Life Name Role Phone Not on Staff, PCP Primary Care Physician Unavail able [facility] - 01/30/[address] [address]- [facility] Discharge Disposition: A-D/C Home Attending Physician: Monty Pearson MD Admitting Physician: Monty Pearson MD Referring Physician: Not on Staff, Referring [...] (PRP-T) vaccine 23 05/17/89 Recorded 1Admin Note: [facility] [id number] 2Admin Note: VIS GIVEN 09/23/08 [email or web address] 3Admin Note: 1st in series. [id number] exp 08/15/11 4Admin Note: vis 05/22 5Admin Note: VIS given 6Result Comment: [12/21/2017] OJSÉ MIGUEL MIDDLETON MA OF 05/16/05 7Result Comment: [12/21/2017] JOSÉ MIGUEL MIDDLETON MA OF 05/16/05 8Result Comment: [12/21/2017] JOSÉ MIGUEL MIDDLETON MA OF 05/16/05 9Result Comment: [12/21/2017] copy of immunization flow sheet from [facility] nurse emi estrella[12/21/2017 Uncharted] duplicate notation 10Result Comment: [12/21/2017] JOSÉ MIGUEL MIDDLETON MA OF 05/16/05 11Result Comment: [12/21/2017] JOSÉ MIGUEL MIDDLETON MA OF 05/16/05 12Result Comment: [12/21/2017] JOSÉ MIGUEL MIDDLETON MA OF 05/16/05 13Result Comment: [12/21/2017] JOSÉ MIGUEL MIDDLETON MA OF 05/16/05 14Result Comment: [12/21/2017] JOSÉ MIGUEL MIDDLETON MA OF 05/16/05 15Result Comment: [12/21/2017] JOSÉ MIGUEL MIDDLETON MA OF 05/16/05 16Result Comment: [12/21/2017] JOSÉ MIGUEL MIDDLETON MA OF 05/16/05 17Result Comment: [12/21/2017] JOSÉ MIGUEL MIDDLETONGRISELDA OF 05/16/05 18Result Comment: [12/21/2017] ADDIELeonor EMI, MA OF 05/16/05 19Result Comment: [12/21/2017] ADDIELeonor EMIGRISELDA OF 05/16/05 20Result Comment: [12/21/2017] ADDIELeonor EMIGRISELDA OF 05/16/05 21Result Comment: [12/21/2017] ADDIELeonor EMI, MA OF 05/16/05 22Result Comment: [12/21/2017] ADDIELeonor EMIGRISELDA OF 05/16/05 23Result Comment: [12/21/2017] ADDIELeonor EMI, MA OF 05/16/05 Medications albuterol CFC free 90 mcg/inh inhalation aerosol 2, puffs, Inhalation, 4 times a day, PRN, USE NEEDED, # 1 each, Refills 4, Tot. Refills 4, Maintenance, 11/06/18 10:52:56 EDT, Aerosol, Route to Pharmacy Electronically, [id number], [facility] Start Date: 11/06/18 Stop Date: 04/05/19 Status: [...] disorder(Confirmed) Active Tobacco abuse(Confirmed) Active 1animal dander Results Radiology Reports * Exam Date Time Procedure Performing Provider Status 01/30/19 5:35 AM Chest 2 Views Frontal and Lat Allyssa Pineda; Lorena (Verified) Notes: (Chest 2 Views Frontal and Lat) Reason For Exam: chest pain;Other: RESULT: Chest 2 Views Frontal and Lat Chest 2 Views Frontal and Lat INDICATION / CLINICAL QUESTION: pt reports midsternal squeezing chest pain, intermittently x1 day, denies pain at this time. COMPARISON: 09/27/2018 FINDINGS: LINES AND TUBES: None. LUNGS AND PLEURA: Clear lungs. Normal pulmonary vascularity. No pleural effusion. No pneumothorax. HEART, MEDIASTINUM AND LETICIA: Normal. BONES AND SOFT TISSUES: Normal. IMPRESSION: Normal. WSN: [id number] Dictated By: Cezar Martinez MD Dictated Date/Time: 01/30/19 7:56 am Reviewed By: Cezar Martinez MD Signed By: Cezar Martinez MD Signed Date/Time: 01/30/19 7:56 am Transcribed By: LJ Transcribed Date/Time: 01/30/19 7:55 am Vital Signs Most recent to oldest [Reference Range]: 1 2 3 Oxygen Saturation [94-100 %] 97 % (01/30/19 6:42 AM) 99 % (01/30/19 5:00 AM) 98 % (01/30/19 3:19 AM) Pulse Rate [55-90 bpm] 83 bpm (01/30/19 6:42 AM) 90 bpm (01/30/19 5:00 AM) 111 bpm *H* (01/30/19 3:19 AM) Blood Pressure [90-138/55-84 mm Hg] 122/65mm Hg (01/30/19 6:42 AM) 124/79mm Hg (01/30/19 5:00 AM) 143/81mm Hg *H* (01/30/19 3:19 AM) Respiratory Rate [16-30 br/min] 16 br/min (01/30/19 6:42 AM) 20 br/min (01/30/19 5:00 AM) 18 br/min (01/30/19 3:19 AM) Temperature [96.8-100.4 DegF] 98.4 DegF (01/30/19 6:42 AM) 97.7 DegF (01/30/19:19 AM) Mode of Delivery (Oxygen) Room air (01/30/19 6:42 AM) Room air (01/30/19 5:00 AM) Nasal cannula (01/30/19 3:19 AM) Blood pressure sites Arm, left (01/30/19 6:42 AM) Arm, left (01/30/19 5:00 AM) Arm, left (01/30/19 3:19 AM) Temperature Route Oral (01/30/19 6:42 AM) Oral (01/30/19 3:19 AM) Social History Social History Type Response Tobacco Other: PT STATES SMO KE A PACK A DAY AND WANTS TO QUIT. Type: Cigarettes. Previous treatment: Counseling, Nicotine replacement. Sex
--- OUTSIDE RECORDS SUMMARY | 2023-10-10 09:45 | XMS_ITS | Continuity of Care Document ---
Author Organization [facility] ter Address [address] [place] [address]- Care Team Providers Care Inspector Watch Assembly Name Role Phone Not on Staff, PCP Primary Care Physician Unavail able [facility] - 02/17/[address] [address]- [facility] Discharge Disposition: A-D/C Walkout Attending Physician: Not on Staff, Attending MD Admitting Physician: Not on Staff, Admitting MD Referring Physician: Not on Staff, Referring [...] (PRP-T) vaccine 23 05/17/89 Recorded 1Admin Note: [facility] [id number] 2Admin Note: VIS GIVEN 09/23/08 ethiopian 3Admin Note: 1st in series. [id number] exp 08/15/11 4Admin Note: vis 05/22 5Admin Note: VIS given 6Result Comment: [12/21/2017] JOSÉ MIGUEL MIDDLETON MA OF 05/16/05 7Result Comment: [12/21/2017] JOSÉ MIGUEL MIDDLETON MA OF 05/16/05 8Result Comment: [12/21/2017] JOSÉ MIGUEL MIDDLETON MA OF 05/16/05 9Result Comment: [12/21/2017] copy of immunization flow sheet from [facility] nurse emi estrella[12/21/2017 Uncharted] duplicate notation 10Result [...] OF 05/16/05 17Result Comment: [12/21/2017] JOSÉ MIGUEL MIDDLETON GRISELDA OF 05/16/05 18Result Comment: [12/21/2017] JOSÉ MIGUEL MIDDLETONGRISELDA OF 05/16/05 19Result Comment: [12/21/2017] JOSÉ MIGUEL MIDDLETONGRISELDA OF 05/16/05 20Result Comment: [12/21/2017] JOSÉ MIGUEL MIDDLETONGRISELDA OF 05/16/05 21Result Comment: [12/21/2017] ADDIELeonor EMIGRISELDA OF 05/16/05 22Result Comment: [12/21/2017] JOSÉ MIGUEL MIDDLETONGRISELDA OF 05/16/05 23Result Comment: [12/21/2017] JOSÉ MIGUEL MARINGRISELDA RICHARDSON OF 05/16/05 Medications acetaminophen 325 mg oral tablet 650 mg, 2, tablet, By Mouth, Every 6 hours, PRN, # 50 tablet, Refills 0, Tot. Refills 0, Maintenance, as needed for pain, 02/05/19 6:27:00 EST, Print Requisition Start Date: 02/05/19 Status: Ordered albuterol CFC free 90 mcg/inh inhalation aerosol 2, puffs, Inhalation, 4 times a day, PRN, USE NEEDED, # 1 each, Refills 4, Tot. Refills 4, Maintenance, 11/06/18 10:52:56 EDT, Aerosol, Route to Pharmacy Electronically, [id number], [facility] Start Date: 11/06/18 Stop Date: 04/05/19 Status: [...] Date: 12/05/18 Stop Date: 06/03/19 Status: Ordered ibuprofen 400 mg oral tablet 400 mg, 1, tablet, By Mouth, Every 6 hours, PRN, # 60 tablet, Refills 0, Tot. Refills 0, Maintenance, Pain , Moderate, 02/05/19 6:27:00 EST, Print Requisition Start Date: 02/05/19 Status: Ordered multivitamin Multiple Vitamins oral tablet [...] recent to oldest [Reference Range]: 1 2 Weight 101 kg (02/17/19 3:23 AM) Oxygen Saturation [94-100 %] 99 % (02/17/19 6:11 AM) 99 % (02/17/19 3:23 AM) Pulse Rate [55-90 bpm] 91 bpm *H* (02/17/19 6:11 AM) 88 bpm (02/17/19 3:23 AM) Blood Pressure [90-138/55-84 mm Hg] 139/ 89mm Hg *H* (02/17/19 6:11 AM) 123/88mm Hg (02/17/19 3:23 AM) Respiratory Rate [16-30 br/min] 16 br/mi n (02/17/19 6:11 AM) 16 br/min (02/17/19 3:23 AM) Temperature [96.8-100.4 DegF] 97.5 DegF (02/17/19 6:11 AM) 97.6 DegF (02/17/19 3:23 AM) Mode of Delivery (Oxygen) Room air (02/17/19 6:11 AM) Room air (02/17/19 3:23 AM) Blood pressure sites Arm, right (02/17/19 6:11 AM) Arm, left (02/17/19 3:23 AM) Temperature Route Oral (02/17/19 6:11 AM) Oral (02/17/19 3:23 AM) Dry Weight 101 kg (02/17/19 3:23 AM) Social History Social History Type Response Tobacco Other: PT STATES SMO KE A PACK A DAY AND WANTS TO QUIT. Type: Cigarettes. Previous treatment: Counseling, Nicotine replacement. Sex Male
--- OUTSIDE RECORDS SUMMARY | 2023-10-10 09:46 | XMS_ITS | Continuity of Care Document ---
Author Organization [facility] ter Address [address] [place] [address]- Care Team Providers Care Supervisor Heat Treating Name Role Phone Reilly GOODE, Tracy Lorenz Primary Care Physician Encounter [facility] Date(s): 10/22/20 - 10/22/[address] [address]- Encounter Diagnosis Ankle swelling(Final) - 10/22/20 Discharge Disposition: A-D/C Home Attending Physician: Dean Glasgow MD Admitting Physician: Dean Glasgow MD Referring Physician: Not on Staff, Referring [...] (PRP-T) vaccine 23 05/17/89 Recorded 1Admin Note: [facility] [place] [id number] 2Admin Note: VIS GIVEN 09/23/08 tajik 3Admin Note: 1st in series. [id number] exp 08/15/11 4Admin Note: vis 05/22 5Admin Note: VIS given 6Result Comment: [12/21/2017] JOSÉ MIGUEL MIDDLETON MA OF 05/16/05 7Result Comment: [12/21/2017] JOSÉ MIGUEL MIDDLETON MA OF 05/16/05 8Result Comment: [12/21/2017] JOSÉ MIGUEL MIDDLETON MA OF 05/16/05 9Result Comment: [12/21/2017] copy of immunization flow sheet from [facility] nurse emi estrella[12/21/2017 Uncharted] duplicate notation [...] EMI, MA OF 05/16/05 19Result Comment: [12/21/2017] JOSÉ MIGUEL MIDDLETONGRISELDA OF 05/16/05 20Result Comment: [12/21/2017] ADDIELeonor EMI, MA OF 05/16/05 21Result Comment: [12/21/2017] JOSÉ MIGUEL MARINGRISELDA RICHARDSON OF 05/16/05 22Result Comment: [12/21/2017] JOSÉ MIGUEL MARINGRISELDA RICHARDSON OF 05/16/05 23Result Comment: [12/21/2017] ADDIELeonor MIDDLETON MA OF 05/16/05 Medications albuterol CFC free 90 mcg/inh inhalation aerosol 2, puffs, Inhalation, 4 times a day, PRN, USE NEEDED, # 1 each, Refills 4, Tot. Refills 4, Maintenance, 11/06/18 10:52:56 EDT, Aerosol, Route to Pharmacy Electronically, [id number], [facility] Start Date: 11/06/18 Stop Date: 04/05/19 Status: Ordered famotidine 20 mg oral tablet 20 mg, 1, tablet, By Mouth, 2 times a day, avoid eating and drinking for 10 minutes after each dose, # 28 tablet, Refills 0, Tot. Refills 0, Maintenance, 05/06/20 12:56:00 EDT, Route to Pharmacy Electronically, [facility]/pharmacy #[id number], Partial fill upon pa... Start Date: 05/06/20 Stop Date: 05/20/20 Status: Ordered Problem List Condition Effective Dates [...] Exam Date Time Procedure Performing Provider Status 10/22/20 11:24 AM Chest 2 Views Frontal and Lat Salud Cho; Lorena (Verified) Notes: (Chest 2 Views Frontal and Lat) Reason For Exam: BL ankle swelling;Other: RESULT: Chest 2 Views Frontal and Lat Chest 2 Views Frontal and Lat Hx of Present Illness: Bilateral feet and ankle pain. Swelling. Question CHF. COMPARISON: 08/12/2020 FINDINGS: LINES AND TUBES: None. LUNGS AND PLEURA: Low lung volumes with mild basilar atelectasis. Lungs are otherwise clear with no consolidation. No pleural effusion. No pneumothorax. HEART, MEDIASTINUM AND LETICIA: Heart is normal in size. Normal upper mediastinal and hilar contour. BONES AND SOFT TISSUES: No acute abnormality. IMPRESSION: No acute abnormality. WSN: [id number] Ordering Physician: Dean Glasgow Dictated By: Narinder Neal MD Dictated Date/Time: 10/22/20 11:40 a Reviewed By: Narinder Neal MD Signed By: Narinder Neal MD Signed Date/Time: 10/22/20 11:40 am Transcribed By: LJ Transcribed Date/Time: 10/22/20 11:39 am Vital Signs Most recent to oldest [Reference Range]: 1 2 3 Oxygen Saturation [94-100 %] 100 % (10/22/20 12:02 PM) 98 % (10/22/20 9:25 AM) 99 % (10/22/20 9:15 AM) Pulse Rate [55-90 bpm] 96 bpm *H* (10/22/20 12:02 PM) 121 bpm *H* (10/22/20 9:25 AM) 124 bpm *H* (10/22/20 9:15 AM) Blood Pressure [90-138/55-84 mm Hg] 140/76mm Hg *H* (10/22/20 12:02 PM) 145/84mm Hg *H* (10/22/20 9:25 AM) Respiratory Rate [16-30 br/min] 21 br/min (10/22/20 12:02 PM) 26 br/min (10/22/20 9:25 AM) 18 br/min (10/22/20 9:15 AM) Temperature [96.8-100.4 DegF] 98.2 DegF (10/22/20 12:02 PM) 98.4 DegF (10/22/20 9:25 AM) Mode of Delivery (Oxygen) Room air (10/22/20 12:02 PM) Room air (10/22/20 9:25 AM) Blood pressure sites Arm, right (10/22/20 12:02 PM) Arm, right (10/22/20 9:25 AM) Temperature Route Oral (10/22/20 12:02 PM) Oral (10/22/20 9:25 AM) Social History Social History Type Response Tobacco Other: PT STATES SMO KE A PACK A DAY AND WANTS TO QUIT. Type: Cigarettes. Previous treatment: Counseling, Nicotine replacement. Sex Male
--- OUTSIDE RECORDS SUMMARY | 2023-10-10 09:46 | XMS_ITS | Continuity of Care Document ---
Author Organization [facility] ter Address [address] [place] [address]- Care Team Providers Care Spray Painter Helper Name Role Phone Not on Staff, PCP Primary Care Physician Unavail able Encounter [facility] Date(s): 02/21/22 - 02/23/[address] [address]- Discharge Disposition: A-D/C Home Attending Physician: John Lara DO Admitting Physician: John Lara DO Referring Physician: Not on Staff, Referring MD Allergies, Adverse Reactions, Alerts Substance Reaction Severity Status Cats 1 Active Pineapple Active 1itchy eyes, throat irritation, runny nose [...] (PRP-T) vaccine 23 05/17/89 Recorded 1Admin Note: [facility] [id number] 2Admin Note: VIS GIVEN 09/23/08 german 3Admin Note: 1st in series. [id number] exp 08/15/11 4Admin Note: vis 05/22 5Admin Note: VIS given 6Result Comment: [12/21/2017] JOSÉ MIGUEL MIDDLETON MA OF 05/16/05 7Result Comment: [12/21/2017] JOSÉ MIGUEL MIDDLETON MA OF 05/16/05 8Result Comment: [12/21/2017] JOSÉ MIGUEL MIDDLETON MA OF 05/16/05 9Result Comment: [12/21/2017] copy of immunization flow sheet from [facility] nurse conrado estrella[12/21/2017 Uncharted] duplicate notation 10Result Comment: [12/21/2017] [...] 05/16/05 17Result Comment: [12/21/2017] JOSÉ MIGUEL MIDDLETON MA OF 05/16/05 18Result Comment: [12/21/2017] JOSÉ MIGUEL MIDDLETON MA OF 05/16/05 19Result Comment: [12/21/2017] JOSÉ MIGUEL MIDDLETON MA OF 05/16/05 20Result Comment: [12/21/2017] JOSÉ MIGUEL MIDDLETON MA OF 05/16/05 21Result Comment: [12/21/2017] JOSÉ MIGUEL MIDDLETON MA OF 05/16/05 22Result Comment: [12/21/2017] JOSÉ MIGUEL MIDDLETON MA OF 05/16/05 23Result Comment: [12/21/2017] JOSÉ MIGUEL MIDDLETON MA OF 05/16/05 Medications albuterol CFC free 90 mcg/inh inhalation aerosol 2, puffs, Inhalation, 4 times a day, PRN, USE NEEDED, # 1 each, Refills 4, Tot. Refills 4, Maintenance, 11/06/18 10:52:56 EDT, Aerosol, Route to Pharmacy Electronically, [id number], [facility]. Start Date: 11/06/18 Stop Date: 04/05/19 Status: Ordered D3 1000 intl units (25 mcg) oral tablet 0 Refills, Maintenance, 07/23/21 22:25:00 EDT, Partial fill upon patient request if the prescription is for a schedule II opioid drug. Start Date: 07/23/21 Status: Ordered escitalopram 5 mg oral tablet 0 Refills, Maintenance, 07/23/21 22:31:00 EDT, Partial fill upon patient request if the prescription is for a schedule II opioid drug. Start Date: 07/23/21 Status: Ordered furosemide 40 mg oral tablet Refills 0, Maintenance, 07/23/21 22:25:00 EDT, Partial fill upon patient request if the prescription is for a schedule II opioid drug. Start Date: 07/23/21 Status: Ordered hydrOXYzine hydrochloride 50 mg oral tablet 0 Refills, Maintenance, 07/23/21 22:32:00 EDT, Partial fill upon patient request if the prescription is for a schedule II opioid drug. Start Date: 07/23/21 Status: Ordered lithium 300 mg oral tablet 1 tablet = 300 mg, By Mouth, 2 times a day, # 28 tablet, 0 Refills, Maintenance, 12/16/20 9:23:00 EDT, Tablet, [facility]/pharmacy #[id number], Partial fill upon patient request if the prescription is for a schedule II opioid drug., 180, cm, 12/05/20 9:27:00 EDT,... Start Date: 12/16/20 Stop Date: 12/30/20 Status: Ordered morphine 15 mg oral tablet, immediate release 0.5 tablet = 7.5 mg, By Mouth, Every 4 hours, PRN as needed for pain, # 5 tablet, 0 Refills, Maintenance, 04/24/21 11:05:00 EST, Tablet, [facility]/pharmacy #[id number], Partial fill upon patient request, 180, cm, 12/05/20 9:27:00 EDT, Height, 118.2, kg, 12/05/20... Start Date: 04/24/21 Status: Ordered naltrexone 50 mg oral tablet 0 Refills, Maintenance, 07/23/21 22:31:00 EDT, Partial fill upon patient request if the prescription is for a schedule II opioid drug. Start Date: 07/23/21 Status: Ordered naproxen 500 mg oral tablet 0 Refills, Maintenance, 07/23/21 22:28:00 EDT, Partial fill upon patient request if the prescription is for a schedule II opioid drug. Start Date: 07/23/21 Status: Ordered nicotine 21 mg/24 hr transdermal film, extended release 0 Refills, Maintenance, 07/23/21 22:28:00 EDT, Partial fill upon patient request if the prescription is for a schedule II opioid drug. Start Date: 07/23/21 Status: Ordered olanzapine 20 mg oral tablet 0 Refills, Maintenance, 07/23/21 22:29:00 EDT, Partial fill upon patient request if the prescription is for a schedule II opioid drug. Start Date: 07/23/21 Status: Ordered QUEtiapine 100 mg oral tablet 100 mg, 1, tablet, By Mouth, 2 times a day, # 28 tablet, Refills 0, Tot. Refills 0, Maintenance, 12/16/20 9:23:00 EDT, Route to Pharmacy Electronically, [facility]/pharmacy #[id number], Partial fill upon patient request if the prescription is for a schedule II opi... Start Date: 12/16/20 Stop Date: 12/30/20 Status: Ordered Singulair 10 mg oral tablet 10 mg, 1, tablet, By Mouth, Daily, Refills 0, Maintenance, 12/05/20 9:28:00 EDT, Partial fill upon patient request if the prescription is for a schedule II opioid drug. Start Date: 12/05/20 Status: Ordered Ventolin HFA 108 mcg/inh inhalation aerosol with adapter 0 Refills, Maintenance, 07/23/21 22:27:00 EDT, Partial fill upon patient request if the prescription is for a schedule II opioid drug. Start Date: 07/23/21 Status: Ordered Vitamin B1 100 mg oral tablet Refills 0, Maintenance, 07/23/21 22:30:00 EDT, Partial fill upon patient request if the prescription is for a schedule II opioid drug. 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 Psychotic disorder Confirmed Active Tobacco abuse Confirmed Active 1animal dander Vital Signs Most recent to oldest [Reference Range]: 1 2 3 Oxygen Saturation [94-100 %] 98 % (02/23/22 10:22 AM) 98 % (02/23/22 6:20 AM) 99 % (02/22/22 7:32 PM) Pulse Rate [55-90 bpm] 86 bpm (02/23/22 10:22 AM) 92 bpm *H* (02/23/22 6:20 AM) 110 bpm *H* (02/22/22 7:32 PM) Blood Pressure [90-138/55-84 mm Hg] 122/78mm Hg (02/23/22 10:22 AM) 124/82mm Hg (02/23/22 6:20 AM) 150/96mm Hg *H* (02/22/22 7:32 PM) Respiratory Rate [16-30 br/min] 16 br/min (02/23/22 10:22 AM) 17 br/min (02/23/22 6:20 AM) 16 br/min (02/22/22 7:32 PM) Temperature [96.8-100.4 DegF] 98.4 DegF (02/23/22 10:22 AM) 96.5 DegF *L* (02/23/22 6:20 AM) 98.1 DegF (02/22/22 7:32 PM) Mode of Delivery (Oxygen) Room air (02/23/22 10:22 AM) Room air (02/23/22 6:20 AM) Room air (02/22/22 7:32 PM) Blood pressure sites Arm, right (02/23/22 10:22 AM) Arm, right (02/23/22 6:20 AM) Arm, right (02/22/22 7:32 PM) Temperature Route Oral (02/23/22 10:22 AM) Oral (02/23/22 6:20 AM) Oral (02/22/22 7:32 PM) Social History Social History Type Response Tobacco Use: 4 or less cigar ettes(less than 1/4 pack)/day in last 30 days. Other: states smoke some days. Type: Cigarettes. Previous treatment: Counseling, Nicotine replacement. Sex Male Patient Care team information Care Team Personnel Name: Not on Staff, PCP Position: [facility] Physician (General Medicine) Member Role: PCP Name: *[facility], ED Attending Position: [facility] ED Attendings Patient Name: Bharat Harper RN Position: [facility] ED RN W/OE and Tasks Member Role: Patient Care Provider Name: Susan Fang Position: [facility] ED TA [facility] Member Role: Patient Care Provider Name: John Lara DO Position: [facility] Resident Member Role: Admitting Physician Address: Address: [address] [place] [address] Dept [place] [address]- Care Team Related Persons Name: ALFRED SEXTON Address: home [address] [place] [address] Name: PT STATES, NO ONE
--- OUTSIDE RECORDS SUMMARY | 2023-10-10 09:46 | XMS_ITS | Continuity of Care Document ---
Author Organization [facility] ter Address [address] [place] [id number]- Care Team Providers Care Sample Maker Original Name Role Phone Not on Staff, PCP Primary Care Physician Unavail able Encounter [facility] Date(s): 08/26/21 - 08/26/[address] [address]- Discharge Disposition: A-D/C Walkout Attending Physician: Not on Staff, Attending MD Admitting Physician: Not on Staff, Admitting MD Referring Physician: Not on Staff, Referring MD Allergies, Adverse Reactions, Alerts Substance Reaction Severity Status Pineapple Active Cats 1 Active 1itchy eyes, throat irritation, [...] (PRP-T) vaccine 23 05/17/89 Recorded 1Admin Note: [facility] [id number] 2Admin Note: VIS GIVEN 09/23/08 mongolian 3Admin Note: 1st in series. [id number] exp 08/15/11 4Admin Note: vis 05/22 5Admin [...] 10:52:56 EDT, Aerosol, Route to Pharmacy Electronically, [id number], [facility]. Start Date: 11/06/18 Stop Date: 04/05/19 Status: [...] 0 Refills, Maintenance, 12/16/20 9:23:00 EDT, Tablet, [facility]/pharmacy #[id number], Partial fill upon patient request if the prescription is for a schedule II opioid drug., 180, cm, 12/05/20 9:27:00 EDT,... Start Date: 12/16/20 Stop Date: 12/30/20 Status: Ordered morphine 15 mg oral tablet, immediate release 0.5 tablet = 7.5 mg, By Mouth, Every 4 hours, PRN as needed for pain, # 5 tablet, 0 Refills, Maintenance, 04/24/21 11:05:00 EST, Tablet, [facility]/pharmacy #[id number], Partial fill upon patient request, [...] 12/16/20 9:23:00 EDT, Route to Pharmacy Electronically, [facility]/pharmacy #[id number], Partial fill upon patient request [...] Date: 07/23/21 Status: Ordered Problem List Condition Effective Dates Status Health Status Inform ant Allergy(Confirmed) 1 Active Anxiety disorder(Confirmed) Active Asthma(Confirmed) Active Attention deficit hyperactiv ity disorder(Confirmed) Active COVID-19(Confirmed) Active 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 Intermittent explosive disorder(Confirmed) Active Mood disorder(Confirmed) Active 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 Psychotic disorder(Confirmed) Active Tobacco abuse(Confirmed) Active 1animal dander Vital Signs Most recent to oldest [Reference Range]: 1 Oxygen Saturation [94-100 %] 94 % (08/26/21 4:24 AM) Pulse Rate [55-90 bpm] 109 bpm *H* (08/26/21 4:24 AM) Blood Pressure [90-138/55-84 mm Hg] 143/ 97mm Hg *H* (08/26/21 4:24 AM) Respiratory Rate [16-30 br/min] 18 br/mi n (08/26/21 4:24 AM) Temperature [96.8-100.4 DegF] 97.8 DegF (08/26/21 4:24 AM) Mode of Delivery (Oxygen) Room air (08/26/21 4:24 AM) Blood pressure sites Arm, right (08/26/21 4:24 AM) Temperature Route Oral (08/26/21 4:24 AM) Social History Social History Type Response Tobacco Use: 4 or less cigar ettes(less than 1/4 pack)/day in last 30 days. Other: states smoke some days. Type: Cigarettes. Previous treatment: Counseling, Nicotine replacement. Sex Male
--- OUTSIDE RECORDS SUMMARY | 2023-10-10 09:46 | XMS_ITS | Continuity of Care Document ---
Author Organization [facility] Address [address] [place] [address]- Care Team Providers Care Furnace Checker Name Role Phone Reilly OGODE, Tracy Lorenz Primary Care Physician Encounter [facility] Date(s): 05/06/20 - 05/13/20 [facility] [address] [place] [address]- Encounter Diagnosis Candidal intertrigo(Discharge Diagnosis) - 05/06/20 Abdominal pain(Discharge Diagnosis) - 05/06/20 Leg cramps(Discharge Diagnosis) - 05/06/20 Attending Physician: Daniel Barajas MD Allergies, Adverse Reactions, Alerts Substance Reaction [...] (PRP-T) vaccine 23 05/17/89 Recorded 1Admin Note: [facility] [id number] 2Admin Note: VIS GIVEN 09/23/08 divehi 3Admin Note: 1st in series. [id number] exp 08/15/11 4Admin Note: vis 05/22 5Admin Note: VIS given 6Result Comment: [12/21/2017] JOSÉ MIGUEL MIDDLETON MA OF 05/16/05 7Result Comment: [12/21/2017] JOSÉ MIGUEL MIDDLETON MA OF 05/16/05 8Result Comment: [12/21/2017] JOSÉ MIGUEL MIDDLETON MA OF 05/16/05 9Result Comment: [12/21/2017] copy of immunization flow sheet from [facility] nurse conrado estrella[12/21/2017 Uncharted] duplicate notation 10Result [...] 05/16/05 18Result Comment: [12/21/2017] JOSÉ MIGUEL MIDDLETON GRISELDA OF 05/16/05 19Result Comment: [12/21/2017] JOSÉ MIGUEL MIDDLETON MA OF 05/16/05 20Result Comment: [12/21/2017] JOSÉ MIGUEL MIDDLETON GRISELDA OF 05/16/05 21Result Comment: [12/21/2017] JOSÉ MIGUEL MIDDLETON MA OF 05/16/05 22Result Comment: [12/21/2017] JOSÉ MIGUEL MIDDLETON GRISELDA OF 05/16/05 23Result Comment: [12/21/2017] JOSÉ MIGUEL MIDDLETON GRISELDA OF 05/16/05 Medications albuterol CFC free 90 mcg/inh inhalation aerosol 2, puffs, Inhalation, 4 times a day, PRN, USE NEEDED, # 1 each, Refills 4, Tot. Refills 4, Maintenance, 11/06/18 10:52:56 EDT, Aerosol, Route to Pharmacy Electronically, [id number], [facility] Start Date: 11/06/18 Stop Date: 04/05/19 Status: Ordered clotrimazole 1% topical cream 1 application, Topically, 2 times a day, for 14 days, # 30 Gm, 0 Refills, Acute 05/20/20 12:52:00 EDT, 05/06/20 12:52:00 EDT, Cream, [facility]/pharmacy #[id number], Partial fill upon patient request if the prescription is for a schedule II opioid drug., 1 applica... Start Date: 05/06/20 Stop Date: 05/20/20 Status: Ordered famotidine 20 mg oral tablet 20 mg, 1, tablet, By Mouth, 2 times a day, avoid eating and drinking for 10 minutes after each dose, # 28 tablet, Refills 0, Tot. Refills 0, Maintenance, 05/06/20 12:56:00 EDT, Route to Pharmacy Electronically, [facility]/pharmacy #[id number], Partial fill upon pa... Start Date: 05/06/20 [...] disorder(Confirmed) Active Tobacco abuse(Confirmed) Active 1animal dander Diagnosis Diagnosis Type Effective Dates Health Status Clinical Service Informant Candidal intertrigo Discharge Diagnosis 05/06/20 Abdominal pain Discharge Diagnosis 05/06/20 Leg cramps Discharge Diagnosis 05/06/20 Vital Signs Most recent to oldest [Reference Range]: 1 Height 180 cm (05/06/20 11:59 AM) Weight 257.4 kg (05/06/20 11:59 AM) Oxygen Saturation [94-100 %] 99 % (05/06/20 11:59 AM) Pulse Rate [55-90 bpm] 123 bpm *H* (05/06/20 11:59 AM) Body Mass Index [18.5-24.99] 79.44 *>HHI* (05/06/20 11:59 AM) Blood Pressure [90-138/55-84 mm Hg] 136/ 87mm Hg (05/06/20 11:59 AM) Respiratory Rate [16-30 br/min] 19 br/mi n (05/06/20 11:59 AM) Temperature [96.8-100.4 DegF] 98.8 DegF (05/06/20 11:59 AM) Mode of Delivery (Oxygen) Room air (05/06/20 11:59 AM) Blood pressure sites Arm, right (05/06/20 11:59 AM) Temperature Route Temporal (05/06/20 11:59 AM) Dry Weight 257.4 kg (05/06/20 11:59 AM) Weight Obtained Via Standing scale (05/06/20 11:59 AM) Dry Weight Obtained Via Standing scale (05/06/20 11:59 AM) Social History Social History Type Response Tobacco Other: PT STATES SMO KE A PACK A DAY AND WANTS TO QUIT. Type: Cigarettes. Previous treatment: Counseling, Nicotine replacement. Sex Male
--- OUTSIDE RECORDS SUMMARY | 2023-10-10 09:46 | XMS_ITS | Continuity of Care Document ---
Author Organization [facility] Address [address] [place] [address]- Care Team Providers Care Senior Accounting Specialist Name Role Phone Reilly GOODE, Tracy Lorenz Primary Care Physician Encounter [facility] Date(s): 10/21/20 - 11/20/20 [facility] [address], [place] [address] Attending Physician: Marco A Kuhn Allergies, Adverse Reactions, Alerts Substance Reaction Severity [...] (PRP-T) vaccine 23 05/17/89 Recorded 1Admin Note: [facility] [id number] 2Admin Note: VIS GIVEN 09/23/08 faroese 3Admin Note: 1st in series. [id number] exp 08/15/11 4Admin Note: vis 05/22 5Admin Note: VIS given 6Result Comment: [12/21/2017] JOSÉ MIGUEL MIDDLETON MA OF 05/16/05 7Result Comment: [12/21/2017] JOSÉ MIGUEL MIDDLETON MA OF 05/16/05 8Result Comment: [12/21/2017] JOSÉ MIGUEL MIDDLETON MA OF 05/16/05 9Result Comment: [12/21/2017] copy of immunization flow sheet from [facility] nurse conrado estrella[12/21/2017 Uncharted] duplicate notation [...] 10:52:56 EDT, Aerosol, Route to Pharmacy Electronically, [id number], [facility] Start Date: 11/06/18 Stop Date: 04/05/19 Status: Ordered famotidine 20 mg oral tablet 20 mg, 1, tablet, By Mouth, 2 times a day, avoid eating and drinking for 10 minutes after each dose, # 28 tablet, Refills 0, Tot. Refills 0, Maintenance, 05/06/20 12:56:00 EDT, Route to Pharmacy Electronically, [facility]/pharmacy #[id number], Partial fill upon pa... Start Date: 05/06/20 [...] disorder(Confirmed) Active Tobacco abuse(Confirmed) Active 1animal dander Social History Social History Type Response Tobacco Other: PT STATES SMO KE A PACK A DAY AND WANTS TO QUIT. Type: Cigarettes. Previous treatment: Counseling, Nicotine replacement. Sex Male
--- OUTSIDE RECORDS SUMMARY | 2023-10-10 09:46 | XMS_ITS | Continuity of Care Document ---
Author Organization [facility] ter Address [address] [place] [address]- Care Team Providers Care Street Openings Inspector Name Role Phone Not on Staff, PCP Primary Care Physician Unavail able Encounter [facility] Date(s): 06/08/21 - 06/08/[address] [address]- Discharge Disposition: A-D/C Walkout Attending Physician: Not on Staff, Attending MD Admitting Physician: Not on Staff, Admitting MD Referring Physician: Not on Staff, Referring MD Allergies, Adverse Reactions, Alerts No Known Medication Allergies Substance Reaction Severity Status Pineapple Active Cats [...] vaccine 23 05/17/89 Recorded 1Admin Note: [facility] [id number] 2Admin Note: VIS GIVEN 09/23/08 solomon islander 3Admin Note: 1st in series. [id number] exp 08/15/11 4Admin Note: vis 05/22 5Admin Note: VIS given 6Result Comment: [12/21/2017] JOSÉ MIGUEL MIDDLETON MA OF 05/16/05 7Result Comment: [12/21/2017] JOSÉ MIGUEL MIDDLETON MA OF 05/16/05 8Result Comment: [12/21/2017] JOSÉ MIGUEL MIDDLETON MA OF 05/16/05 9Result Comment: [12/21/2017] copy of immunization flow sheet from [facility] nurse emi estrella[12/21/2017 Uncharted] duplicate notation [...] MIDDLETONGRISELDA OF 05/16/05 18Result Comment: [12/21/2017] ADDIELeonor EMIGRISELDA OF 05/16/05 19Result Comment: [12/21/2017] ADDIELeonor EMI, MA OF 05/16/05 20Result Comment: [12/21/2017] JOSÉ MIGUEL MIDDLETON GRISELDA OF 05/16/05 21Result Comment: [12/21/2017] JOSÉ MIGUEL MIDDLETON GRISELDA OF 05/16/05 22Result Comment: [12/21/2017] JOSÉ MIGUEL MIDDLETON GRISELDA OF 05/16/05 23Result Comment: [12/21/2017] JOSÉ MIGUEL MIDDLETON GRISELDA OF 05/16/05 Medications albuterol CFC free 90 mcg/inh inhalation aerosol 2, puffs, Inhalation, 4 times a day, PRN, USE NEEDED, # 1 each, Refills 4, Tot. Refills 4, Maintenance, 11/06/18 10:52:56 EDT, Aerosol, Route to Pharmacy Electronically, [id number], [facility] Start Date: 11/06/18 Stop Date: 04/05/19 Status: Ordered lithium 300 mg oral tablet [...] kg, 12/05/20... Start Date: 04/24/21 Status: Ordered QUEtiapine 100 mg oral tablet 100 mg, 1, tablet, By Mouth, 2 times a day, # 28 tablet, Refills 0, Tot. Refills 0, Maintenance, 12/16/20 9:23:00 EDT, Route to Pharmacy Electronically, [facility]/pharmacy #[id number], Partial fill upon patient request if the prescription is for a schedule II opi... Start Date: 12/16/20 Stop Date: 12/30/20 Status: Ordered Singulair 10 mg oral tablet 10 mg, 1, tablet, By Mouth, Daily, Refills 0, Maintenance, 12/05/20 9:28:00 EDT, Partial fill upon patient request if the prescription is for a schedule II opioid drug. Start Date: 12/05/20 Status: Ordered Problem List Condition Effective Dates [...] to oldest [Reference Range]: 1 2 Weight 105 kg (06/08/21 2:22 AM) Oxygen Saturation [94-100 %] 100 % (06/08/21 4:59 AM) 98 % (06/08/21 2:22 AM) Pulse Rate [55-90 bpm] 95 bpm *H* (06/08/21 4:59 AM) 95 bpm *H* (06/08/21 2:22 AM) Blood Pressure [90-138/55-84 mm Hg] 142/ 94mm Hg *H* (06/08/21 4:59 AM) 127/84mm Hg (06/08/21 2:22 AM) Respiratory Rate [16-30 br/min] 17 br/mi n (06/08/21 2:22 AM) Temperature [96.8-100.4 DegF] 97.9 DegF (06/08/21 4:59 AM) 97.3 DegF (06/08/21 2:22 AM) Mode of Delivery (Oxygen) Room air (06/08/21 2:22 AM) Blood pressure sites Arm, right (06/08/21 4:59 AM) Temperature Route Oral (06/08/21 4:59 AM) Oral (06/08/21 2:22 AM) Weight Obtained Via Patient/family state d (06/08/21 2:22 AM) Social History Social History Type Response Tobacco Use: 4 or less cigar ettes(less than 1/4 pack)/day in last 30 days. Other: states smoke some days. Type: Cigarettes. Previous treatment: Counseling, Nicotine replacement. Sex Male
--- OUTSIDE RECORDS SUMMARY | 2023-10-10 09:46 | XMS_ITS | Continuity of Care Document ---
Author Organization [facility] ter Address [address] [place] [address]- Care Team Providers Care Pourer Buggy Ladle Name Role Phone Reilly GOODE, Tracy Lorenz Primary Care Physician Encounter [facility] Date(s): 10/28/20 - 10/28/[address] [address]- Discharge Disposition: A-D/C Walkout Attending Physician: Not [...] (PRP-T) vaccine 23 05/17/89 Recorded 1Admin Note: [facility] [id number] 2Admin Note: VIS GIVEN 09/23/08 djiboutian 3Admin Note: 1st in series. [id number] exp 08/15/11 4Admin Note: vis 05/22 5Admin [...] MIDDLETON MA OF 05/16/05 18Result Comment: [12/21/2017] ADDIELeonor EMIGRISELDA OF 05/16/05 19Result Comment: [12/21/2017] JOSÉ MIGUEL MIDDLETONGRISELDA OF 05/16/05 20Result Comment: [12/21/2017] JOSÉ MIGUEL MIDDLETON MA OF 05/16/05 21Result Comment: [12/21/2017] ADDIELeonor EMI GRISELDA OF 05/16/05 22Result Comment: [12/21/2017] JOSÉ MIGUEL MIDDLETON MA OF 05/16/05 23Result Comment: [12/21/2017] ADDIELeonor EMIGRISELDA OF 05/16/05 Medications albuterol CFC free 90 mcg/inh inhalation aerosol 2, puffs, Inhalation, 4 times a day, PRN, USE NEEDED, # 1 each, Refills 4, Tot. Refills 4, Maintenance, 11/06/18 10:52:56 EDT, Aerosol, Route to Pharmacy Electronically, [id number], [facility] Start Date: 11/06/18 Stop Date: 04/05/19 Status: Ordered famotidine 20 mg oral tablet 20 mg, 1, tablet, By Mouth, 2 times a day, avoid eating and drinking for 10 minutes after each dose, # 28 tablet, Refills 0, Tot. Refills 0, Maintenance, 05/06/20 12:56:00 EDT, Route to Pharmacy Electronically, [facility]/pharmacy #[id number], Partial fill upon pa... Start Date: 05/06/20 [...] Exam Date Time Procedure Performing Provider Status 10/28/20 2:36 AM Chest Portable Allyssa Pineda; Auth (V erified) Notes: (Chest Portable) Reason For Exam: Cough RESULT: Chest Portable Chest Portable INDICATION: Dyspnea. COMPARISON: Multiple priors, the most recent 10/22/2020. FINDINGS: LINES AND TUBES: None. LUNGS AND PLEURA: Low lung volumes with bronchovascular crowding. Lungs are otherwise clear with no consolidation. No pleural effusion. No pneumothorax. HEART, MEDIASTINUM AND LETICIA: Heart is normal in size. Normal upper mediastinal and hilar contour. BONES AND SOFT TISSUES: No acute abnormality. IMPRESSION: No acute abnormality. I have personally reviewed the images and I agree with this report. WSN: [id number] Ordering Physician: Akosua Monge Dictated By: Forest[Radiology] Allegra CORTES Dictated Date/Time: 10/28/20 8:10 am Reviewed By: Bobby Cormier MD Signed By: Bobby Cormier MD Signed Date/Time: 10/28/20 8:15 am Transcribed By: LJ Transcribed Date/Time: 10/28/20 8:07 am Vital Signs Most recent to oldest [Reference Range]: 1 Oxygen Saturation [94-100 %] 98 % (10/28/20 2:14 AM) Pulse Rate [55-90 bpm] 116 bpm *H* (10/28/20 2:14 AM) Blood Pressure [90-138/55-84 mm Hg] 152/ 90mm Hg *H* (10/28/20 2:14 AM) Respiratory Rate [16-30 br/min] 18 br/mi n (10/28/20 2:57 AM) Temperature [96.8-100.4 DegF] 98.3 DegF (10/28/20 2:14 AM) Mode of Delivery (Oxygen) Room air (10/28/20 2:14 AM) Blood pressure sites Arm, left (10/28/20 2:14 AM) Temperature Route Oral (10/28/20 2:14 AM) Social History Social History Type Response Tobacco Other: PT STATES SMO KE A PACK A DAY AND WANTS TO QUIT. Type: Cigarettes. Previous treatment: Counseling, Nicotine replacement. Sex Male
--- OUTSIDE RECORDS SUMMARY | 2023-10-10 09:46 | XMS_ITS | Continuity of Care Document ---
Author Organization [facility] Address [address] [place] [address]- Care Team Providers Care Orchestra Leader Name Role Phone Reilly GOODE, Tracy Lorenz Primary Care Physician Encounter [facility] Date(s): 05/06/20 - 06/05/20 [facility] [address] [place] [address]- Attending Physician: AdmMarco A reyez Admitting Physician: AdmtrMarco A Referring Physician: Admtr, Ar8 Allergies, Adverse Reactions, Alerts Substance Reaction Severity [...] (PRP-T) vaccine 23 05/17/89 Recorded 1Admin Note: [facility] [id number] 2Admin Note: VIS GIVEN 09/23/08 divehi 3Admin Note: 1st in series. [id number] exp 08/15/11 4Admin Note: vis 05/22 5Admin Note: VIS given 6Result Comment: [12/21/2017] JOSÉ MIGUEL MIDDLETON MA OF 05/16/05 7Result Comment: [12/21/2017] JOSÉ MIGUEL MIDDLETON MA OF 05/16/05 8Result Comment: [12/21/2017] JOSÉ MIGUEL MIDDLETON MA OF 05/16/05 9Result Comment: [12/21/2017] copy of immunization flow sheet from [facility] nurse conrado estrella[12/21/2017 Uncharted] duplicate notation [...] 10:52:56 EDT, Aerosol, Route to Pharmacy Electronically, [id number], [facility] Start Date: 11/06/18 Stop Date: 04/05/19 Status: Ordered famotidine 20 mg oral tablet 20 mg, 1, tablet, By Mouth, 2 times a day, avoid eating and drinking for 10 minutes after each dose, # 28 tablet, Refills 0, Tot. Refills 0, Maintenance, 05/06/20 12:56:00 EDT, Route to Pharmacy Electronically, [facility]/pharmacy #[id number], Partial fill upon pa... Start Date: 05/06/20 [...]
--- OUTSIDE RECORDS SUMMARY | 2023-10-10 09:46 | XMS_ITS | Continuity of Care Document ---
Author Organization [facility] ter Address [address] [place] [address]- Care Team Providers Care Speech Therapy Director Name Role Phone eRilly GOODE, Tracy Lorenz Primary Care Physician Encounter [facility] Date(s): 08/12/20 - 08/12/[address] [address]- Encounter Diagnosis Chest pain(Final) - 08/12/20 Malaise(Final) - 08/12/20 Discharge Disposition: A-D/C Home Attending Physician: Guero Mclean DO Admitting Physician: Guero Mclean DO Referring Physician: Not on Staff, Referring [...] (PRP-T) vaccine 23 05/17/89 Recorded 1Admin Note: [facility][NOTE 3] [id number] 2Admin Note: VIS GIVEN 09/23/08 slovenian 3Admin Note: 1st in series. [id number] exp 08/15/11 4Admin Note: vis 05/22 5Admin Note: VIS given 6Result Comment: [12/21/2017] JOSÉ MIGUEL MIDDLETON MA OF 05/16/05 7Result Comment: [12/21/2017] JOSÉ MIGUEL MIDDLETON MA OF 05/16/05 8Result Comment: [12/21/2017] JOSÉ MIGUEL MIDDLETON MA OF 05/16/05 9Result Comment: [12/21/2017] copy of immunization flow sheet from [facility] nurse emi estrella[12/21/2017 Uncharted] duplicate notation [...] OF 05/16/05 16Result Comment: [12/21/2017] JOSÉ MIGUEL MIDDLETONGRISELDA OF 05/16/05 17Result Comment: [12/21/2017] ADDIELeonor EMI, MA OF 05/16/05 18Result Comment: [12/21/2017] ADDIELeonor EMIGRISELDA OF 05/16/05 19Result Comment: [12/21/2017] ADDIELeonor EMIGRISELDA OF 05/16/05 20Result Comment: [12/21/2017] ADDIELeonor EMI, MA OF 05/16/05 21Result Comment: [12/21/2017] ADDIELeonor EMIGRISELDA OF 05/16/05 22Result Comment: [12/21/2017] ADDIELeonor EMI, MA OF 05/16/05 23Result Comment: [12/21/2017] JOSÉ MIGUEL MIDDLETONGRISELDA OF 05/16/05 Medications albuterol CFC free 90 mcg/inh inhalation aerosol 2, puffs, Inhalation, 4 times a day, PRN, USE NEEDED, # 1 each, Refills 4, Tot. Refills 4, Maintenance, 11/06/18 10:52:56 EDT, Aerosol, Route to Pharmacy Electronically, [id number], [facility] Start Date: 11/06/18 Stop Date: 04/05/19 Status: Ordered famotidine 20 mg oral tablet 20 mg, 1, tablet, By Mouth, 2 times a day, avoid eating and drinking for 10 minutes after each dose, # 28 tablet, Refills 0, Tot. Refills 0, Maintenance, 05/06/20 12:56:00 EDT, Route to Pharmacy Electronically, [facility]/pharmacy #[id number], Partial fill upon pa... Start Date: 05/06/20 [...] Exam Date Time Procedure Performing Provider Status 08/12/20 1:52 AM Chest 2 Views Frontal and Lat Nita Casey; Lorena (Verified) Notes: (Chest 2 Views Frontal and Lat) Reason For Exam: Chest Pain;Other: RESULT: Chest 2 Views Frontal and Lat Chest 2 Views Frontal and Lat INDICATION: Nausea, chest pressure COMPARISON: 08/09/2020, 02/22/2019 FINDINGS: LINES AND TUBES: None. LUNGS AND PLEURA: Low lung volumes, resulting in mild bronchovascular crowding. Clear lungs. No pleural effusion. No pneumothorax. HEART, MEDIASTINUM AND LETICIA: The heart is of normal size. Mediastinal contour normal. BONES AND SOFT TISSUES: Normal. IMPRESSION: No acute abnormality. I have personally reviewed the images and I agree with this report. WSN: [id number] Ordering Physician: Maxx Alves Dictated By: Jaylen Pace DO Dictated Date/Time: 08/12/20 9:10 am Reviewed By: Cassius Brown MD Signed By: Cassius Brown MD Signed Date/Time: 08/12/20 9:15 am Transcribed By: LJ Transcribed Date/Time: 08/12/20 8:37 am Vital Signs Most recent to oldest [Reference Range]: 1 2 3 Oxygen Saturation [94-100 %] 99 % (08/12/20 7:06 AM) 98 % (08/12/20 2:57 AM) 97 % (08/12/20 12:34 AM) Pulse Rate [55-90 bpm] 87 bpm (08/12/20 7:06 AM) 78 bpm (08/12/20 2:57 AM) 95 bpm *H* (08/12/20 12:34 AM) Blood Pressure [90-138/55-84 mm Hg] 153/107mm Hg *H* (08/12/20 7:06 AM) 119/76mm Hg (08/12/20 2:57 AM) 137/92mm Hg (08/12/20 12:34 AM) Respiratory Rate [16-30 br/min] 18 br/min (08/12/20 7:06 AM) 18 br/min (08/12/20 2:57 AM) 16 br/min (08/12/20 12:34 AM) Temperature [96.8-100.4 DegF] 97.6 DegF (08/12/20 2:57 AM) 98.7 DegF (08/12/20 12:34 AM) Mode of Delivery (Oxygen) Room air (08/12/20 7:06 AM) Room air (08/12/20 2:57 AM) Room air (08/12/20 12:34 AM) Blood pressure sites Arm, right (08/12/20 7:06 AM) Arm, right (08/12/20 2:57 AM) Arm, right (08/12/20 12:34 AM) Temperature Route Oral (08/12/20 2:57 AM) Oral (08/12/20 12:34 AM) Social History Social History Type Response Tobacco Other: PT STATES SMO KE A PACK A DAY AND WANTS TO QUIT. Type: Cigarettes. Previous treatment: Counseling, Nicotine replacement. Sex Male
--- OUTSIDE RECORDS SUMMARY | 2023-10-10 09:46 | XMS_ITS | Continuity of Care Document ---
Author Organization [facility] Address [address] [place] [address]- Care Team Providers Care Crystalizer Tender Name Role Phone Reilly GOODE, Tracy Lorenz Primary Care Physician Encounter [facility] Date(s): 03/21/19 - 03/31/19 [facility] [address] [place] [address]- [facility] Attending Physician: Admtr, Ar8 Allergies, Adverse Reactions, Alerts [...] (PRP-T) vaccine 23 05/17/89 Recorded 1Admin Note: [facility] [id number] 2Admin Note: VIS GIVEN 09/23/08 estonian 3Admin Note: 1st in series. [id number] exp 08/15/11 4Admin Note: vis 05/22 5Admin [...] MIDDLETON MA OF 05/16/05 17Result Comment: [12/21/2017] ADDIELeonor EMIGRISELDA OF 05/16/05 18Result Comment: [12/21/2017] ADDIELeonor EMI, MA OF 05/16/05 19Result Comment: [12/21/2017] ADDIELeonor EMI, MA OF 05/16/05 20Result Comment: [12/21/2017] ADDIELeonor EMI, MA OF 05/16/05 21Result Comment: [12/21/2017] JOSÉ MIGUEL EMI, MA OF 05/16/05 22Result Comment: [12/21/2017] ADDIELeonor EMI, MA OF 05/16/05 23Result Comment: [12/21/2017] JOSÉ MIGUEL MIDDLETON MA OF 05/16/05 Medications acetaminophen 325 mg oral [...] 10:52:56 EDT, Aerosol, Route to Pharmacy Electronically, [id number], [facility] Start Date: 11/06/18 Stop Date: 04/05/19 Status: Ordered benzoyl peroxide 2.5% topical liquid 1 application, Topically, 2 times a day, # 22.5 mL, 3 Refills, Maintenance, 12/05/18 10:59:42 EDT, Liquid, please d/c script for cream. this is formulary covered, 1 application Topically 2 times a day Start Date: 12/05/18 Status: Ordered ibuprofen 400 mg oral tablet 400 mg, 1, tablet, By Mouth, Every 6 hours, PRN, # 60 tablet, Refills 0, Tot. Refills 0, Maintenance, Pain , Moderate, 02/05/19 6:27:00 EST, Print Requisition Start Date: 02/05/19 Status: Ordered multivitamin Multiple Vitamins oral tablet 1 tablet, By Mouth, Daily, # 90 tablet, 3 Refills, Maintenance, 03/07/19 17:50:00 EST, Tablet, [facility]., 1 tablet By Mouth Daily, 180, cm, 03/07/19 17:23:00 EST, Height, 101, kg, 02/17/19 3:23:00 EST, Dry Weight Start Date: 03/07/19 Status: Ordered Nicotine 2 mg gum 1 [...] Topically Daily Start Date: 11/06/18 Status: Ordered SEROquel 25 mg oral tablet 25 mg, 1, tablet, By Mouth, 3 times a day, # 30 tablet, Refills 0, Tot. Refills 0, Maintenance, 03/07/19 17:50:00 EST, Route to Pharmacy Electronically, [facility]., 180, cm, 03/07/19 17:23:00 EST, Height, 101, kg, 02/17/19 3:23:00 EST,... Start Date: 03/07/19 Stop Date: 04/06/19 Status: Ordered Problem List Condition Effective Dates [...]
--- OUTSIDE RECORDS SUMMARY | 2023-10-10 09:46 | XMS_ITS | Continuity of Care Document ---
Author Organization [facility] Address [address] [place] [address]- Care Team Providers Care Diet Attendant Name Role Phone Reilly GOODE, Tracy Lorenz Primary Care Physician Encounter [facility] Date(s): 12/10/20 - 01/09/21 [facility] [address] [place], [place] [address] Attending Physician: Tracy Grover NP Admitting Physician: Reilly GOODE, Tracy Lorenz Allergies, Adverse Reactions, Alerts No Known Medication Allergies Substance Reaction Severity Status Cats 1 Active [...] (PRP-T) vaccine 23 05/17/89 Recorded 1Admin Note: [facility] [id number] 2Admin Note: VIS GIVEN 09/23/08 canadian 3Admin Note: 1st in series. [id number] exp 08/15/11 4Admin Note: vis 05/22 5Admin Note: VIS given 6Result Comment: [12/21/2017] JOSÉ MIGUEL MIDDLETON MA OF 05/16/05 7Result Comment: [12/21/2017] JOSÉ MIGUEL MIDDLETON MA OF 05/16/05 8Result Comment: [12/21/2017] JOSÉ MIGUEL MIDDLETON MA OF 05/16/05 9Result Comment: [12/21/2017] copy of immunization flow sheet from [facility] nurse emi estrella[12/21/2017 Uncharted] duplicate notation [...] MA OF 05/16/05 20Result Comment: [12/21/2017] ADDIELeonor EMIGRISELDA [...] 10:52:56 EDT, Aerosol, Route to Pharmacy Electronically, [id number], [facility] Start Date: 11/06/18 Stop Date: 04/05/19 Status: Ordered lithium 300 mg oral tablet 1 tablet = 300 mg, By Mouth, 2 times a day, # 28 tablet, 0 Refills, Maintenance, 12/16/20 9:23:00 EDT, Tablet, [facility]/pharmacy #[id number], Partial fill upon patient request if the prescription is for a schedule II opioid drug., 180, cm, 12/05/20 9:27:00 EDT,... Start Date: 12/16/20 Stop Date: 12/30/20 Status: Ordered QUEtiapine 100 mg oral tablet 100 mg, 1, tablet, By Mouth, 2 times a day, # 28 tablet, Refills 0, Tot. Refills 0, Maintenance, 12/16/20 9:23:00 EDT, Route to Pharmacy Electronically, [facility]/pharmacy #[id number], Partial fill upon patient request [...]
--- OUTSIDE RECORDS SUMMARY | 2023-10-10 09:46 | XMS_ITS | Continuity of Care Document ---
Author Organization [facility] ter Address [address] [place] [address]- Care Team Providers Care Ambulance Mechanic Name Role Phone Reilly GOODE, Tracy Lorenz Primary Care Physician [place] [facility] [place] 05/08/21 - 05/08/[address] [address]- Encounter Diagnosis Dental caries(Final) - 05/08/21 Dental infection(Final) - 05/08/21 Discharge Disposition: A-D/C Home Attending Physician: Robyn King DO Admitting Physician: Robyn King DO Referring Physician: Not on Staff, Referring [...] vaccine 23 05/17/89 Recorded 1Admin Note: [facility] [id number] 2Admin Note: VIS GIVEN 09/23/08 ivorian 3Admin Note: 1st in series. [id number] exp 08/15/11 4Admin Note: vis 05/22 5Admin Note: VIS given 6Result Comment: [12/21/2017] JOSÉ MIGUEL MIDDLETON MA OF 05/16/05 7Result Comment: [12/21/2017] JOSÉ MIGUEL MIDDLETON MA OF 05/16/05 8Result Comment: [12/21/2017] JOSÉ MIGUEL MIDDLETON MA OF 05/16/05 9Result Comment: [12/21/2017] copy of immunization flow sheet from [facility] nurse emi estrella[12/21/2017 Uncharted] duplicate notation [...] MA OF 05/16/05 16Result Comment: [12/21/2017] ADDIELeonor EMIGRISELDA OF 05/16/05 17Result Comment: [12/21/2017] ADDIELeonor EMI, MA OF 05/16/05 18Result Comment: [12/21/2017] ADDIELeonor EIM, MA OF 05/16/05 19Result Comment: [12/21/2017] ADDIELeonor EMI, MA OF 05/16/05 20Result Comment: [12/21/2017] JOSÉ MIGUEL EMI, MA OF 05/16/05 21Result Comment: [12/21/2017] ADDIELeonor EMI, MA OF 05/16/05 22Result Comment: [12/21/2017] ADDIELeonor EMI, MA OF 05/16/05 23Result Comment: [12/21/2017] ADDIELeonor EMI, MA OF 05/16/05 Medications albuterol CFC free 90 mcg/inh inhalation aerosol 2, puffs, Inhalation, 4 times a day, PRN, USE NEEDED, # 1 each, Refills 4, Tot. Refills 4, Maintenance, 11/06/18 10:52:56 EDT, Aerosol, Route to Pharmacy Electronically, [id number], [facility] Start Date: 11/06/18 Stop Date: 04/05/19 Status: Ordered amoxicillin 500 mg oral capsule 1 capsule = 500 mg, By Mouth, 3 times a day, for 10 days, # 30 capsule, 0 Refills, Acute 05/18/21 3:23:00 EDT, 05/08/21 3:23:00 EDT, Capsule, [facility]/pharmacy #[id number], Partial fill upon patient request if the prescription is for a schedule II opioid drug.,... Start Date: 05/08/21 Stop Date: 05/18/21 Status: Ordered ibuprofen 400 mg oral tablet 400 mg, 1, tablet, By Mouth, Every 4 hours, PRN, for 14 days, # 60 tablet, Refills 0, Tot. Refills 0, Acute 05/22/21 4:32:00 EDT, Pain , Moderate, 05/08/21 4:32:00 EDT, Route to Pharmacy Electronically, [facility]/pharmacy #[id number], Partial fill upon patient re... Start Date: 05/08/21 Stop Date: 05/22/21 Status: Ordered lithium 300 mg oral tablet 1 tablet = 300 mg, By Mouth, 2 times a day, # 28 tablet, 0 Refills, Maintenance, 12/16/20 9:23:00 EDT, Tablet, [facility]/pharmacy #[id number], Partial fill upon patient request if the prescription is for a schedule II opioid drug., 180, cm, 12/05/20 9:27:00 EDT,... Start Date: 12/16/20 Stop Date: 12/30/20 Status: Ordered morphine 15 mg oral tablet, immediate release 0.5 tablet = 7.5 mg, By Mouth, Every 4 hours, PRN as needed for pain, # 5 tablet, 0 Refills, Maintenance, 04/24/21 11:05:00 EST, Tablet, [facility]/pharmacy #[id number], Partial fill upon patient request, 180, cm, 12/05/20 9:27:00 EDT, Height, 118.2, kg, 12/05/20... Start Date: 04/24/21 Status: Ordered QUEtiapine 100 mg oral tablet 100 mg, 1, tablet, By Mouth, 2 times a day, # 28 tablet, Refills 0, Tot. Refills 0, Maintenance, 12/16/20 9:23:00 EDT, Route to Pharmacy Electronically, [facility]/pharmacy #[id number], Partial fill upon patient request [...] Range]: 1 2 Oxygen Saturation [94-100 %] 98 % (05/08/21 4:47 AM) 95 % (05/08/21 2:15 AM) Pulse Rate [55-90 bpm] 98 bpm *H* (05/08/21 4:47 AM) 104 bpm *H* (05/08/21 2:15 AM) Blood Pressure [90-138/55-84 mm Hg] 144/ 81mm Hg *H* (05/08/21 4:47 AM) 137/95mm Hg (05/08/21 2:15 AM) Respiratory Rate [16-30 br/min] 16 br/mi n (05/08/21 4:47 AM) 16 br/min (05/08/21 2:15 AM) Temperature [96.8-100.4 DegF] 97.9 DegF (05/08/21 2:15 AM) Mode of Delivery (Oxygen) Room air (05/08/21 4:47 AM) Room air (05/08/21 2:15 AM) Blood pressure sites Arm, left (05/08/21 4:47 AM) Arm, left (05/08/21 2:15 AM) Temperature Route Oral (05/08/21 2:15 AM) Social History Social History Type Response Tobacco Use: 4 or less cigar ettes(less than 1/4 pack)/day in last 30 days. Other: states smoke some days. Type: Cigarettes. Previous treatment: Counseling, Nicotine replacement. Sex Male
--- OUTSIDE RECORDS SUMMARY | 2023-10-10 09:46 | XMS_ITS | Continuity of Care Document ---
Author Organization [facility] ter Address [address] [place] [address]- Care Team Providers Care Production Cost Estimator Name Role Phone Not on Staff, PCP Primary Care Physician Unavail able [facility] Date[facility] - 02/10/[address] [address]- [facility] Discharge Disposition: A-D/C Walkout Attending [...] (PRP-T) vaccine 23 05/17/89 Recorded 1Admin Note: [facility] [id number] 2Admin Note: VIS GIVEN 09/23/08 korean 3Admin Note: 1st in series. [id number] exp 08/15/11 4Admin Note: vis 05/22 5Admin Note: VIS given 6Result Comment: [12/21/2017] JOSÉ MIGUEL MIDDLETON MA OF 05/16/05 7Result Comment: [12/21/2017] JOSÉ MIGUEL MIDDLETON MA OF 05/16/05 8Result Comment: [12/21/2017] JOÉS MIGUEL MIDDLETON MA OF 05/16/05 9Result Comment: [12/21/2017] copy of immunization flow sheet from [facility] nurse emi estrella[12/21/2017 [...] 10:52:56 EDT, Aerosol, Route to Pharmacy Electronically, [id number], [facility] Start Date: 11/06/18 Stop Date: 04/05/19 [...] Most recent to oldest [Reference Range]: 1 Weight 97.7 kg (02/10/19 3:30 AM) Oxygen Saturation [94-100 %] 96 % (02/10/19 3:30 AM) Pulse Rate [55-90 bpm] 101 bpm *H* (02/10/19 3:30 AM) Blood Pressure [90-138/55-84 mm Hg] 150/ 87mm Hg *H* (02/10/19 3:30 AM) Respiratory Rate [16-30 br/min] 18 br/mi n (02/10/19 3:30 AM) Temperature [96.8-100.4 DegF] 97.8 DegF (02/10/19 3:30 AM) Mode of Delivery (Oxygen) Room air (02/10/19 3:30 AM) Blood pressure sites Arm, right (02/10/19 3:30 AM) Temperature Route Oral (02/10/19 3:30 AM) Dry Weight 97.7 kg (02/10/19 3:30 AM) Weight Obtained Via Standing scale (02/10/19 3:30 AM) Dry Weight Obtained Via Standing scale (02/10/19 3:30 AM) Social History Social History Type Response Tobacco Other: PT STATES SMO KE A PACK A DAY AND WANTS TO QUIT. Type: Cigarettes. Previous treatment: Counseling, Nicotine replacement. Sex Male
--- OUTSIDE RECORDS SUMMARY | 2023-10-10 09:46 | XMS_ITS | Continuity of Care Document ---
Author Organization [facility] Address [address] [place] [address]- Care Team Providers Care Professor Of Communication Name Role Phone Not on Staff, PCP Primary Care Physician Unavail able [facility] Date[facility]s): 06/03/21 - 06/10/21 [facility] [address] [place] [address]- Attending Physician: Marvin Bloom DO Referring Physician: Not on Staff, Referring [...] (PRP-T) vaccine 23 05/17/89 Recorded 1Admin Note: [facility] [id number] 2Admin Note: VIS GIVEN 09/23/08 hebrew 3Admin Note: 1st in series. [id number] exp 08/15/11 4Admin Note: vis 05/22 5Admin [...] MIGUEL MIDDLETONGRISELDA OF 05/16/05 19Result Comment: [12/21/2017] ADDIELeonor MEI, MA OF 05/16/05 20Result Comment: [12/21/2017] ADDIELeonor EMIGRISELDA OF 05/16/05 21Result Comment: [12/21/2017] ADIDELeonor EMIGRISELDA OF 05/16/05 22Result Comment: [12/21/2017] ADDIELeonor EMI, MA OF 05/16/05 23Result Comment: [12/21/2017] ADDIELeonor EMIGRISELDA OF 05/16/05 Medications albuterol CFC free 90 mcg/inh inhalation aerosol 2, puffs, Inhalation, 4 times a day, PRN, USE NEEDED, # 1 each, Refills 4, Tot. Refills 4, Maintenance, 11/06/18 10:52:56 EDT, Aerosol, Route to Pharmacy Electronically, [id number], [facility] Start Date: 11/06/18 Stop Date: 04/05/19 Status: Ordered lithium 300 mg oral tablet 1 tablet = 300 mg, By Mouth, 2 times a day, # 28 tablet, 0 Refills, Maintenance, 12/16/20 9:23:00 EDT, Tablet, [facility]/pharmacy #[id number], Partial fill upon patient request if the prescription is for a schedule II opioid drug., 180, cm, 12/05/20 9:27:00 EDT,... Start Date: 12/16/20 Stop Date: 12/30/20 Status: Ordered morphine 15 mg oral tablet, immediate release 0.5 tablet = 7.5 mg, By Mouth, Every 4 hours, PRN as needed for pain, # 5 tablet, 0 Refills, Maintenance, 04/24/21 11:05:00 EST, Tablet, [facility]/pharmacy #[id number], Partial fill upon patient request, 180, cm, 12/05/20 9:27:00 EDT, Height, 118.2, kg, 12/05/20... Start Date: 04/24/21 Status: Ordered QUEtiapine 100 mg oral tablet 100 mg, 1, tablet, By Mouth, 2 times a day, # 28 tablet, Refills 0, Tot. Refills 0, Maintenance, 12/16/20 9:23:00 EDT, Route to Pharmacy Electronically, [facility]/pharmacy #[id number], Partial fill upon patient request if the [...] oldest [Reference Range]: 1 Height 180 cm (06/03/21 5:13 PM) Oxygen Saturation [94-100 %] 100 % (06/03/21 5:13 PM) Pulse Rate [55-90 bpm] 126 bpm *H* (06/03/21 5:13 PM) Blood Pressure [90-138/55-84 mm Hg] 137/ 75mm Hg (06/03/21 5:13 PM) Temperature [96.8-100.4 DegF] 98.4 DegF (06/03/21 5:13 PM) Mode of Delivery (Oxygen) Room air (06/03/21 5:13 PM) Blood pressure sites Arm, right (06/03/21 5:13 PM) Temperature Route Temporal (06/03/21 5:13 PM) Social History Social History Type Response Tobacco Use: 4 or less cigar ettes(less than 1/4 pack)/day in last 30 days. Other: states smoke some days. Type: Cigarettes. Previous treatment: Counseling, Nicotine replacement. Sex Male
--- OUTSIDE RECORDS SUMMARY | 2023-10-10 09:46 | XMS_ITS | Continuity of Care Document ---
Author Organization [facility] ter Address [address] [place] [address]- Care Team Providers Care Snow Removal/Plowing Name Role Phone Livan Rosales MD Primary Care Physician Encounter [facility] Date(s): 08/27/23 - 08/28/[address] [address]- Encounter Diagnosis Suicidal ideation(Final) - 08/27/23 Discharge Disposition: Transfer to [facility] Facility Attending Physician: Petey Hensley MD Admitting Physician: Petey Hensley MD Referring Physician: Not on Staff, Referring [...] 8 04/12/05 Recorded Varicella Virus Vaccine 9 07/12/02 Recorded hepatitis B pediatric vaccine 10 04/13/00 Recorded hepatitis B pediatric vaccine 11 07/31/99 Recorded hepatitis B pediatric vaccine 12 06/30/99 Recorded tetanus-diphtheria toxoids (Td) 13 06/30/99 Record ed Poliovirus Vaccine, Inactivated 14 04/28/93 Record ed Poliovirus Vaccine, Inactivated 15 05/17/89 Record ed Poliovirus Vaccine, Inactivated 16 09/21/88 Record ed Poliovirus Vaccine, Inactivated 17 03/03/88 Record ed diphtheria/tetanus/pertussis, acel(DTaP) 18 05/17/89 Recorded diphtheria/tetanus/pertussis, acel(DTaP) 19 07/07/88 Recorded diphtheria/tetanus/pertussis, acel(DTaP) 20 03/03/88 Recorded diphtheria/tetanus/pertussis, acel(DTaP) 21 87 Recorded diphtheria/tetanus/pertussis, acel(DTaP) 87 Recorded haemophilus b conjugate (PRP-T) vaccine 22 05/17/89 Recorded 1Admin Note: [facility] [id number] 2Admin Note: VIS GIVEN 09/23/08 uzbek 3Admin Note: 1st in series. [id number] exp 08/15/11 4Admin Note: vis 05/22 5Admin Note: VIS given 6Result Comment: [12/21/2017] JOSÉ MIGUEL MIDDLETON MA OF 05/16/05 7Result Comment: [12/21/2017] JOSÉ MIGUEL MIDDLETON MA OF 05/16/05 8Result Comment: [12/21/2017] JOSÉ MIGUEL MIDDLETON MA OF 05/16/05 9Result Comment: [12/21/2017] JOSÉ MIGUEL MIDDLETON MA OF 05/16/05 10Result Comment: [12/21/2017] JOSÉ MIGUEL MIDDLETON MA [...] MIDDLETON GRISELDA OF 05/16/05 21Result Comment: [12/21/2017] ADDIELeonor EMIGRISELDA OF 05/16/05 22Result Comment: [12/21/2017] JOSÉ MIGUEL MIDDLETON MA OF 05/16/05 Medications albuterol CFC free 90 mcg/inh inhalation aerosol 2, puffs, Inhalation, 4 times a day, PRN, USE NEEDED, # 1 each, Refills 4, Tot. Refills 4, Maintenance, 11/06/18 10:52:56 EDT, Aerosol, Route to Pharmacy Electronically, [id number], [facility]. Start Date: 11/06/18 Stop Date: 04/05/19 [...] 0 Refills, Maintenance, 12/16/20 9:23:00 EDT, Tablet, [facility]/pharmacy #[id number], Partial fill upon patient request if the prescription is for a schedule II opioid drug., 180, cm, 12/05/20 9:27:00 EDT,... 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 Psychotic disorder Confirmed Active Severe obesity Confirmed Active Tobacco abuse Confirmed Active 1animal dander Results Radiology Reports * Exam Date Time Procedure Performing Provider Status 08/27/23 1:[address] Head/Brain W/O Contrast Carina Arias n; Auth (Verified) Notes: (CT Head/Brain W/O Contrast) Reason For Exam: Brain mass or lesion;Other: RESULT: CT Head/Brain W/O Contrast CT Head/Brain W/O Contrast INDICATION: Hx of Present Illness: : Headache, abd pain, NV pt now stated he is having mood changesand feels SI with plan but vague to what the plan is; Reason: Other:; Brain mass or lesion; Clinical Question(s): Hematoma; Order Comment: TECHNIQUE: Noncontrast head CT using axial technique and reconstructed in axial and coronal planes.Iterative reconstruction techniques are used to optimize dose and image quality. COMPARISON: February 22, 2019 FINDINGS: Machine Packer view findings, lines and tubes: None. BRAIN AND EXTRA-AXIAL SPACES: No parenchymal hemorrhage, midline shift, or mass effect. Moura-white matter differentiation is wellpreserved. No acute infarct. Ventricles, sulci, and basilar cisterns are normal. No white matter lesions. No subarachnoid hemorrhage. No subdural or epidural collection. CALVARIUM, SKULL BASE, AND SOFT TISSUES: No fractures or suspicious bony lesions. The paranasal sinuses and mastoid air cells are clear. Visualized orbits and globes are intact. The extracranial soft tissues are unremarkable aside from mild chronic soft tissue thickening in the left parietal region. IMPRESSION: 1. No acute intracranial pathology. 2. No intracranial mass effect. If there is concern for intracranial lesion, MRI is more sensitive. WSN: [id number] Ordering Physician: Brendon Draper Dictated By: Guero Almazan MD Dictated Date/Time: 08/27/23 1:25 pm Reviewed By: Guero Almazan MD Signed By: Guero Almazan MD Signed Date/Time: 08/27/23 1:25 pm Transcribed By: LJ Transcribed Date/Time: 08/27/23 1:23 pm Vital Signs Most recent to oldest [Reference Range]: 1 2 3 Height 180 cm (08/28/23 11: AM) 180 cm (08/27/23 8:12 PM) 180 cm (08/27/23 4:09 PM) Weight 145.4 kg (08/28/23 11: AM) 145.4 kg (08/27/23 8:12 PM) 145.4 kg (08/27/23 4:09 PM) Oxygen Saturation [94-100 %] 96 % (08/28/23 11: AM) 99 % (08/28/23 4:09 AM) 96 % (08/28/23 1:19 AM) Pulse Rate [55-90 bpm] 106 bpm *H* (08/28/23 11:26 AM) 104 bpm *H* (08/28/23 4:09 AM) 114 bpm *H* (08/28/23 1:19 AM) Body Mass Index [18.5-24.99 kg/m2] 44.88 kg/m2 *>HHI* (08/28/23 11:26 AM) 44.88 kg/m2 *>HHI* (08/27/23 8:12 PM) 44.88 kg/m2 *>HHI* (08/27/23 4:09 PM) Blood Pressure [90-138/55-84 mm Hg] 144/96mm Hg *H* (08/28/23 11:26 AM) 153/75mm Hg *H* (08/28/23 4:09 AM) 146/104mm Hg *H* (08/28/23 1:19 AM) Respiratory Rate [16-30 br/min] 20 br/min (08/28/23 11:26 AM) 16 br/min (08/28/23 4:09 AM) 18 br/min (08/28/23 1:19 AM) Temperature [96.8-100.4 DegF] 98.1 DegF (08/27/23 8:12 PM) 98.4 DegF (08/27/23 4:09 PM) 97.7 DegF (08/27/23 2:44 PM) Liters per Minute 2 L/min (08/27/23 10:05 AM) Mode of Delivery (Oxygen) Room air (08/28/23 11:26 AM) Room air (08/28/23 4:09 AM) Room air (08/28/23 1:19 AM) Blood pressure sites Arm, left (08/28/23 4:09 AM) Arm, left (08/28/23 1:19 AM) Arm, right (08/27/23 8:12 PM) Temperature Route Oral (08/27/23 8:12 PM) Oral (08/27/23 4:09 PM) Oral (08/27/23 2:44 PM) Dry Weight 145.4 kg (08/28/23 11:26 AM) 145.4 kg (08/27/23 8:12 PM) 145.4 kg (08/27/23 4:09 PM) Weight Obtained Via Patient/family state d (08/27/23 10:17 AM) Dry Weight Obtained Via Patient/family s tated (08/27/23 10:17 AM) Social History Social History Type Response Tobacco Use: 4 or less cigar ettes(less than 1/4 pack)/day in last 30 days. Other: states smoke some days. Type: Cigarettes. Previous treatment: Counseling, Nicotine replacement. Sex Male Patient Care team information Care Team Personnel Name: Livan Rosales MD Position: Reference Physician Member Role: PCP Address: Address: [address] [place] [address] Drive [address] [place] [address]- Care Team Related Persons Name: ALFRED SEXTON Address: home [address] [place] [address] Name: PT STATES, NO ONE
--- OUTSIDE RECORDS SUMMARY | 2023-10-10 09:46 | XMS_ITS | Continuity of Care Document ---
Author Organization [facility] Address [address] [place] [address]- Care Team Providers Care Mac Operator Name Role Phone Reilly GOODE, Tracy Lorenz Primary Care Physician Encounter [facility] Date(s): 12/10/20 - 01/13/21 [facility] [address] [place] [address]- Attending Physician: Tracy Grover NP Admitting Physician: [...] [facility] [id number] 2Admin Note: VIS GIVEN 09/23/08 italian 3Admin Note: 1st in series. [id number] exp 08/15/11 4Admin Note: vis 05/22 5Admin Note: VIS given 6Result Comment: [12/21/2017] JOSÉ MIGUEL MIDDLETON MA OF 05/16/05 7Result Comment: [12/21/2017] JOSÉ MIGUEL MIDDLETON MA OF 05/16/05 8Result Comment: [12/21/2017] JOSÉ MIGUEL MIDDLETON MA OF 05/16/05 9Result Comment: [12/21/2017] copy of immunization flow sheet from [facility] nurse emi estrella[12/21/2017 Uncharted] duplicate notation [...] 10:52:56 EDT, Aerosol, Route to Pharmacy Electronically, [id number], [facility] Start Date: 11/06/18 Stop Date: 04/05/19 Status: Ordered lithium 300 mg oral tablet 1 tablet = 300 mg, By Mouth, 2 times a day, # 28 tablet, 0 Refills, Maintenance, 12/16/20 9:23:00 EDT, Tablet, [facility]/pharmacy #[id number], Partial fill upon patient request if the prescription is for a schedule II opioid drug., 180, cm, 12/05/20 9:27:00 EDT,... Start Date: 12/16/20 Stop Date: 12/30/20 Status: Ordered QUEtiapine 100 mg oral tablet 100 mg, 1, tablet, By Mouth, 2 times a day, # 28 tablet, Refills 0, Tot. Refills 0, Maintenance, 12/16/20 9:23:00 EDT, Route to Pharmacy Electronically, [facility]/pharmacy #[id number], Partial fill upon patient request if [...]
--- OUTSIDE RECORDS SUMMARY | 2023-10-10 09:46 | XMS_ITS | Continuity of Care Document ---
Author Organization [facility] Address [address] [place] [address]- Care Team Providers Care Forestry Aide Name Role Phone Not on Staff, PCP Primary Care Physician Unavail able [facility] Date[facility]s): 05/18/21 - 07/03/21 [facility] [address] [place], [place] [address] Attending Physician: Reilly GOODE, Tracy Lorenz Admitting Physician: Reilly GOODE, Tracy Lorenz Allergies, [...] (PRP-T) vaccine 23 05/17/89 Recorded 1Admin Note: [facility] [id number] 2Admin Note: VIS GIVEN 09/23/08 micronesian 3Admin Note: 1st in series. [id number] exp 08/15/11 4Admin Note: vis 05/22 5Admin Note: VIS given 6Result Comment: [12/21/2017] JOSÉ MIGUEL MIDDLETON MA OF 05/16/05 7Result Comment: [12/21/2017] JOSÉ MIGUEL MIDDLETON MA OF 05/16/05 8Result Comment: [12/21/2017] JOSÉ MIGUEL MIDDLETON MA OF 05/16/05 9Result Comment: [12/21/2017] copy of immunization flow sheet from [facility] nurse emi estrella[12/21/2017 Uncharted] duplicate notation [...] MIDDLETONGRISELDA OF 05/16/05 19Result Comment: [12/21/2017] ADDIELeonor EMIGRISELDA OF 05/16/05 20Result Comment: [12/21/2017] JOSÉ MIGUEL MIDDLETONGRISELDA OF 05/16/05 21Result Comment: [12/21/2017] JOSÉ MIGUEL MIDDLETONGRISELDA OF 05/16/05 22Result Comment: [12/21/2017] JOSÉ MIGUEL MIDDLETONGRISELDA OF 05/16/05 23Result Comment: [12/21/2017] JOSÉ MIGUEL MIDDLETONGRISELDA OF 05/16/05 Medications albuterol CFC free 90 mcg/inh inhalation aerosol 2, puffs, Inhalation, 4 times a day, PRN, USE NEEDED, # 1 each, Refills 4, Tot. Refills 4, Maintenance, 11/06/18 10:52:56 EDT, Aerosol, Route to Pharmacy Electronically, [id number], [facility] Start Date: 11/06/18 Stop Date: 04/05/19 Status: Ordered lithium 300 mg oral tablet 1 tablet = 300 mg, By Mouth, 2 times a day, # 28 tablet, 0 Refills, Maintenance, 12/16/20 9:23:00 EDT, Tablet, [facility]/pharmacy #[id number], Partial fill upon patient request if the prescription is for a schedule II opioid drug., 180, cm, 12/05/20 9:27:00 EDT,... Start Date: 12/16/20 Stop Date: 12/30/20 Status: Ordered morphine 15 mg oral tablet, immediate release 0.5 tablet = 7.5 mg, By Mouth, Every 4 hours, PRN as needed for pain, # 5 tablet, 0 Refills, Maintenance, 04/24/21 11:05:00 EST, Tablet, [facility]/pharmacy #[id number], Partial fill upon patient request, 180, cm, 12/05/20 9:27:00 EDT, Height, 118.2, kg, 12/05/20... Start Date: 04/24/21 Status: Ordered QUEtiapine 100 mg oral tablet 100 mg, 1, tablet, By Mouth, 2 times a day, # 28 tablet, Refills 0, Tot. Refills 0, Maintenance, 12/16/20 9:23:00 EDT, Route to Pharmacy Electronically, [facility]/pharmacy #[id number], Partial fill upon patient request if the [...]
--- OUTSIDE RECORDS SUMMARY | 2023-10-10 09:46 | XMS_ITS | Continuity of Care Document ---
Author Organization [facility] ter Address [address] [place] [address]- Care Team Providers Care Forming Machine Adjuster Name Role Phone Not on Staff, PCP Primary Care Physician Unavail able [facility]counter [facility] Date(s): 06/30/21 - 07/01/[address] [address]- Discharge Disposition: A-D/C Walkout Attending Physician: Not [...] Recorded 1Admin Note: [facility] [id number] 2Admin Note: VIS GIVEN 09/23/08 burkinan 3Admin Note: 1st in series. [id number] exp 08/15/11 4Admin Note: vis 05/22 5Admin [...] 10:52:56 EDT, Aerosol, Route to Pharmacy Electronically, [id number], [facility] Start Date: 11/06/18 Stop Date: 04/05/19 Status: Ordered lithium 300 mg oral tablet 1 tablet = 300 mg, By Mouth, 2 times a day, # 28 tablet, 0 Refills, Maintenance, 12/16/20 9:23:00 EDT, Tablet, [facility]/pharmacy #[id number], Partial fill upon patient request if the prescription is for a schedule II opioid drug., 180, cm, 12/05/20 9:27:00 EDT,... Start Date: 12/16/20 Stop Date: 12/30/20 Status: Ordered morphine 15 mg oral tablet, immediate release 0.5 tablet = 7.5 mg, By Mouth, Every 4 hours, PRN as needed for pain, # 5 tablet, 0 Refills, Maintenance, 04/24/21 11:05:00 EST, Tablet, [facility]/pharmacy #[id number], Partial fill upon patient request, 180, cm, 12/05/20 9:27:00 EDT, Height, 118.2, kg, 12/05/20... Start Date: 04/24/21 Status: Ordered QUEtiapine 100 mg oral tablet 100 mg, 1, tablet, By Mouth, 2 times a day, # 28 tablet, Refills 0, Tot. Refills 0, Maintenance, 12/16/20 9:23:00 EDT, Route to Pharmacy Electronically, [facility]/pharmacy #[id number], Partial fill upon patient request if the [...] 3 Oxygen Saturation [94-100 %] 100 % (06/30/21 4:19 PM) 98 % (06/30/21 11:33 AM) 97 % (06/30/21 7:32 AM) Pulse Rate [55-90 bpm] 111 bpm *H* (06/30/21 4:19 PM) 95 bpm *H* (06/30/21 11:33 AM) 102 bpm *H* (06/30/21 7:32 AM) Blood Pressure [90-138/55-84 mm Hg] 146/111mm Hg *H* (06/30/21 4:19 PM) 145/105mm Hg *H* (06/30/21 11:33 AM) 152/93mm Hg *H* (06/30/21 7:32 AM) Respiratory Rate [16-30 br/min] 18 br/min (06/30/21 4:19 PM) 20 br/min (06/30/21 7:32 AM) Temperature [96.8-100.4 DegF] 97.8 DegF (06/30/21 4:19 PM) 97.2 DegF (06/30/21 11:33 AM) 98.2 DegF (06/30/21 7:32 AM) Mode of Delivery (Oxygen) Room air (06/30/21 11:33 AM) Room air (06/30/21 7:32 AM) Blood pressure sites Arm, right (06/30/21 4:19 PM) Arm, left (06/30/21 11:33 AM) Arm, left (06/30/21 7:32 AM) Temperature Route Oral (06/30/21 4:19 PM) Temporal (06/30/21 11:33 AM) Oral (06/30/21 7:32 AM) Social History Social History Type Response Tobacco Use: 4 or less cigar ettes(less than 1/4 pack)/day in last 30 days. Other: states smoke some days. Type: Cigarettes. Previous treatment: Counseling, Nicotine replacement. Sex Male
--- OUTSIDE RECORDS SUMMARY | 2023-10-10 09:46 | XMS_ITS | Continuity of Care Document ---
Author Organization [facility] ter Address [address] [place] [address]- Care Team Providers Care Elevator Inspector Name Role Phone Not on Staff, PCP Primary Care Physician Unavail able [facility]counter [facility] Date(s): 10/31/21 - 10/31/[address] [address]- Encounter Diagnosis Anxiety(Final) - 10/31/21 Discharge Disposition: A-D/C Home Attending Physician: Homero Quezada MD Admitting Physician: Homero Quezada MD Referring Physician: Not on Staff, Referring [...] (PRP-T) vaccine 23 05/17/89 Recorded 1Admin Note: [facility] [id number] 2Admin Note: VIS GIVEN 09/23/08 vietnamese 3Admin Note: 1st in series. [id number] exp 08/15/11 4Admin Note: vis 05/22 5Admin Note: VIS given 6Result Comment: [12/21/2017] JOSÉ MIGUEL MIDDLETON MA OF 05/16/05 7Result Comment: [12/21/2017] JOSÉ MIGUEL MIDDLETON MA OF 05/16/05 8Result Comment: [12/21/2017] JOSÉ MIGUEL MIDDLETON MA OF 05/16/05 9Result Comment: [12/21/2017] copy of immunization flow sheet from [facility] nurse conrado estrella[12/21/2017 Uncharted] duplicate notation [...] 10:52:56 EDT, Aerosol, Route to Pharmacy Electronically, [id number], [facility]. Start Date: 11/06/18 Stop Date: 04/05/19 [...] 0 Refills, Maintenance, 12/16/20 9:23:00 EDT, Tablet, [facility]/pharmacy #[id number], Partial fill upon patient request if the prescription is for a schedule II opioid drug., 180, cm, 12/05/20 9:27:00 EDT,... Start Date: 12/16/20 Stop Date: 12/30/20 Status: Ordered morphine 15 mg oral tablet, immediate release 0.5 tablet = 7.5 mg, By Mouth, Every 4 hours, PRN as needed for pain, # 5 tablet, 0 Refills, Maintenance, 04/24/21 11:05:00 EST, Tablet, [facility]/pharmacy #[id number], Partial fill upon patient [...] 12/16/20 9:23:00 EDT, Route to Pharmacy Electronically, [facility]/pharmacy #[id number], Partial fill upon patient [...] 3 Oxygen Saturation [94-100 %] 98 % (10/31/21 12:29 PM) 94 % (10/31/21 10:00 AM) 99 % (10/31/21 6:34 AM) Pulse Rate [55-90 bpm] 122 bpm *H* (10/31/21 12:29 PM) 122 bpm *H* (10/31/21 10:00 AM) 127 bpm *H* (10/31/21 6:34 AM) Blood Pressure [90-138/55-84 mm Hg] 153/105mm Hg *H* (10/31/21 12:29 PM) 180/100mm Hg *H* (10/31/21 10:00 AM) 147/108mm Hg *H* (10/31/21 6:34 AM) Respiratory Rate [16-30 br/min] 20 br/min (10/31/21 12:29 PM) 16 br/min (10/31/21 10:00 AM) 20 br/min (10/31/21 6:34 AM) Temperature [96.8-100.4 DegF] 98.6 DegF (10/31/21 12:29 PM) 98.6 DegF (10/31/21 10:00 AM) 98.2 DegF (10/31/21 6:34 AM) Mode of Delivery (Oxygen) Room air (10/31/21 12:29 PM) Room air (10/31/21 10:00 AM) Room air (10/31/21 6:34 AM) Blood pressure sites Arm, right (10/31/21 12:29 PM) Arm, left (10/31/21 6:34 AM) Temperature Route Oral (10/31/21 12:29 PM) Oral (10/31/21 10:00 AM) Oral (10/31/21 6:34 AM) Social History Social History Type Response Tobacco Use: 4 or less cigar ettes(less than 1/4 pack)/day in last 30 days. Other: states smoke some days. Type: Cigarettes. Previous treatment: Counseling, Nicotine replacement. Sex Male Care Team Personnel Name: Not on Staff, PCP
--- OUTSIDE RECORDS SUMMARY | 2023-10-10 09:46 | XMS_ITS | Continuity of Care Document ---
Author Organization [facility] Address [address] [place] [address]- Care Team Providers Care Certification Officer Name Role Phone Not on Staff, PCP Primary Care Physician Unavail able Encounter [facility] Date(s): 06/03/21 - 07/03/21 [facility] [address] [place] [address]- Attending Physician: Marco A Kuhn Admitting Physician: AdmtrMarco A Referring Physician: trMarco A Allergies, Adverse Reactions, Alerts No Known Medication [...] vaccine 23 05/17/89 Recorded 1Admin Note: [facility] [id number] 2Admin Note: VIS GIVEN 09/23/08 estonian 3Admin Note: 1st in series. [id number] exp 08/15/11 4Admin Note: vis 05/22 5Admin Note: VIS given 6Result Comment: [12/21/2017] JOSÉ MIGUEL MIDDLETON MA OF 05/16/05 7Result Comment: [12/21/2017] JOSÉ MIGUEL MIDDLETON MA OF 05/16/05 8Result Comment: [12/21/2017] JOSÉ MIGUEL MIDDLETON MA OF 05/16/05 9Result Comment: [12/21/2017] copy of immunization flow sheet from [facility] nurse emi estrella[12/21/2017 Uncharted] duplicate notation [...] MIDDLETON MA OF 05/16/05 20Result Comment: [12/21/2017] ADDIELeonor [...] 10:52:56 EDT, Aerosol, Route to Pharmacy Electronically, [id number], [facility] Start Date: 11/06/18 Stop Date: 04/05/19 Status: Ordered lithium 300 mg oral tablet 1 tablet = 300 mg, By Mouth, 2 times a day, # 28 tablet, 0 Refills, Maintenance, 12/16/20 9:23:00 EDT, Tablet, [facility]/pharmacy #[id number], Partial fill upon patient request if the prescription is for a schedule II opioid drug., 180, cm, 12/05/20 9:27:00 EDT,... Start Date: 12/16/20 Stop Date: 12/30/20 Status: Ordered morphine 15 mg oral tablet, immediate release 0.5 tablet = 7.5 mg, By Mouth, Every 4 hours, PRN as needed for pain, # 5 tablet, 0 Refills, Maintenance, 04/24/21 11:05:00 EST, Tablet, [facility]/pharmacy #[id number], Partial fill upon patient request, 180, cm, 12/05/20 9:27:00 EDT, Height, 118.2, kg, 12/05/20... Start Date: 04/24/21 Status: Ordered QUEtiapine 100 mg oral tablet 100 mg, 1, tablet, By Mouth, 2 times a day, # 28 tablet, Refills 0, Tot. Refills 0, Maintenance, 12/16/20 9:23:00 EDT, Route to Pharmacy Electronically, [facility]/pharmacy #[id number], Partial fill upon patient request if the [...]
--- OUTSIDE RECORDS SUMMARY | 2023-10-10 09:47 | XMS_ITS | Continuity of Care Document ---
Author Organization [facility] ter Address [address] [place] [address]- Care Team Providers Care Bander Hand Name Role Phone Reilly GOODE, Tracy Lorenz Primary Care Physician [place] [facility] [place] 12/15/20 - 12/16/[address] [address]- Encounter Diagnosis Suicidal ideation(Final) - 12/15/20 Discharge Disposition: A-D/C Home Attending Physician: Conchita Montiel MD Admitting Physician: Conchita Montiel MD Referring Physician: Not on Staff, Referring [...] (PRP-T) vaccine 23 05/17/89 Recorded 1Admin Note: [facility] [id number] 2Admin Note: VIS GIVEN 09/23/08 pashto 3Admin Note: 1st in series. [id number] exp 08/15/11 4Admin Note: vis 05/22 5Admin [...] EMI, MA OF 05/16/05 18Result Comment: [12/21/2017] JOSÉ MIGUEL MIDDLETON MA OF 05/16/05 19Result Comment: [12/21/2017] ADDIELeonor EMI, MA OF 05/16/05 20Result Comment: [12/21/2017] JOSÉ MIGUEL MIDDLETON MA OF 05/16/05 21Result Comment: [12/21/2017] JOSÉ MIGUEL MIDDLETON MA OF 05/16/05 22Result Comment: [12/21/2017] ADDIELeonor MIDDLETON MA OF 05/16/05 23Result Comment: [12/21/2017] JOSÉ MIGUEL MIDDLETON MA OF 05/16/05 Medications albuterol CFC free 90 mcg/inh inhalation aerosol 2, puffs, Inhalation, 4 times a day, PRN, USE NEEDED, # 1 each, Refills 4, Tot. Refills 4, Maintenance, 11/06/18 10:52:56 EDT, Aerosol, Route to Pharmacy Electronically, [id number], [facility] Start Date: 11/06/18 Stop Date: 04/05/19 Status: Ordered lithium 300 mg oral tablet 1 tablet = 300 mg, By Mouth, 2 times a day, # 28 tablet, 0 Refills, Maintenance, 12/16/20 9:23:00 EDT, Tablet, [facility]/pharmacy #[id number], Partial fill upon patient request if the prescription is for a schedule II opioid drug., 180, cm, 12/05/20 9:27:00 EDT,... Start Date: 12/16/20 Stop Date: 12/30/20 Status: Ordered QUEtiapine 100 mg oral tablet 100 mg, 1, tablet, By Mouth, 2 times a day, # 28 tablet, Refills 0, Tot. Refills 0, Maintenance, 12/16/20 9:23:00 EDT, Route to Pharmacy Electronically, [facility]/pharmacy #[id number], Partial fill upon patient request if [...] 1 2 3 Oxygen Saturation [94-100 %] 9 % *L* (12/16/20 11:26 AM) 100 % (12/16/20 9:24 AM) 99 % (12/15/20 7:30 PM) Pulse Rate [55-90 bpm] 86 bpm (12/16/20 11:26 AM) 95 bpm *H* (12/16/20 9:24 AM) 88 bpm (12/15/20 7:30 PM) Blood Pressure [90-138/55-84 mm Hg] 118/67mm Hg (12/16/20 11:26 AM) 117/72mm Hg (12/16/20 9:24 AM) 120/72mm Hg (12/15/20 7:30 PM) Respiratory Rate [16-30 br/min] 18 br/min (12/16/20 11:26 AM) 20 br/min (12/16/20 9:24 AM) 15 br/min *L* (12/15/20 7:30 PM) Temperature [96.8-100.4 DegF] 97.8 DegF (12/16/20 9:24 AM) 98.3 DegF (12/15/20 6:20 PM) Mode of Delivery (Oxygen) Room air (12/16/20 11:26 AM) Room air (12/16/20 9:24 AM) Room air (12/15/20 7:30 PM) Blood pressure sites Arm, right (12/16/20 11:26 AM) Arm, right (12/16/20 9:24 AM) Arm, left (12/15/20 7:30 PM) Temperature Route Oral (12/16/20 9:24 AM) Oral (12/15/20 6:20 PM) Social History Social History Type Response Tobacco Other: PT STATES SMO KE A PACK A DAY AND WANTS TO QUIT. Type: Cigarettes. Previous treatment: Counseling, Nicotine replacement. Sex Male
--- OUTSIDE RECORDS SUMMARY | 2023-10-10 09:47 | XMS_ITS | Continuity of Care Document ---
Author Organization [facility] ter Address [address] [place] [address]- Care Team Providers Care Cloth Hauler Name Role Phone Reilly GOODE, Tracy Lorenz Primary Care Physician Encounter [facility] Date(s): 01/16/21 - 01/17/[address] [address]- Discharge Disposition: Transfer to [facility] Facility Attending Physician: Arianne Pascual MD Admitting Physician: Arianne Pascual MD Referring Physician: Not on Staff, Referring [...] Recorded 1Admin Note: [facility] [id number] 2Admin Note: VIS GIVEN 09/23/08 norwegian 3Admin Note: 1st in series. [id number] exp 08/15/11 4Admin Note: vis 05/22 5Admin [...] MA OF 05/16/05 23Result Comment: [12/21/2017] ADDIELeonor MIDDLETON MA OF 05/16/05 Medications albuterol CFC free 90 mcg/inh inhalation aerosol 2, puffs, Inhalation, 4 times a day, PRN, USE NEEDED, # 1 each, Refills 4, Tot. Refills 4, Maintenance, 11/06/18 10:52:56 EDT, Aerosol, Route to Pharmacy Electronically, [id number], [facility] Start Date: 11/06/18 Stop Date: 04/05/19 Status: Ordered lithium 300 mg oral tablet 1 tablet = 300 mg, By Mouth, 2 times a day, # 28 tablet, 0 Refills, Maintenance, 12/16/20 9:23:00 EDT, Tablet, [facility]/pharmacy #[id number], Partial fill upon patient request if the prescription is for a schedule II opioid drug., 180, cm, 12/05/20 9:27:00 EDT,... Start Date: 12/16/20 Stop Date: 12/30/20 Status: Ordered QUEtiapine 100 mg oral tablet 100 mg, 1, tablet, By Mouth, 2 times a day, # 28 tablet, Refills 0, Tot. Refills 0, Maintenance, 12/16/20 9:23:00 EDT, Route to Pharmacy Electronically, [facility]/pharmacy #[id number], Partial fill upon patient request if [...] 3 Oxygen Saturation [94-100 %] 99 % (01/17/21 6:21 AM) 97 % (01/16/21 4:12 PM) 100 % (01/16/21 9:07 AM) Pulse Rate [55-90 bpm] 90 bpm (01/17/21 6:21 AM) 101 bpm *H* (01/16/21 4:12 PM) 76 bpm (01/16/21 9:07 AM) Blood Pressure [90-138/55-84 mm Hg] 122/82mm Hg (01/17/21 6:21 AM) 127/86mm Hg (01/16/21 4:12 PM) 146/81mm Hg *H* (01/16/21 9:07 AM) Respiratory Rate [16-30 br/min] 16 br/min (01/17/21 6:21 AM) 18 br/min (01/16/21 4:12 PM) 17 br/min (01/16/21 9:07 AM) Temperature [96.8-100.4 DegF] 98.5 DegF (01/17/21 6:21 AM) 98.1 DegF (01/16/21 4:12 PM) 98.1 DegF (01/16/21 9:07 AM) Mode of Delivery (Oxygen) Room air (01/17/21 6:21 AM) Room air (01/16/21 4:12 PM) Room air (01/16/21 9:07 AM) Blood pressure sites Arm, right (01/17/21 6:21 AM) Arm, left (01/16/21 4:12 PM) Arm, right (01/16/21 9:07 AM) Temperature Route Oral (01/17/21 6:21 AM) Oral (01/16/21 4:12 PM) Oral (01/16/21 9:07 AM) Social History Social History Type Response Tobacco Other: PT STATES SMO KE A PACK A DAY AND WANTS TO QUIT. Type: Cigarettes. Previous treatment: Counseling, Nicotine replacement. Sex Male
--- OUTSIDE RECORDS SUMMARY | 2023-10-10 09:47 | XMS_ITS | Continuity of Care Document ---
Author Organization [facility] ter Address [address] [place] [address]- Care Team Providers Care Handbook Writer Name Role Phone Not on Staff, PCP Primary Care Physician Unavail able [facility]counter [facility] Date(s): 06/01/21 - 06/01/[address] [address]- Discharge Disposition: A-D/C Walkout Attending Physician: Not [...] (PRP-T) vaccine 23 05/17/89 Recorded 1Admin Note: [facility] [id number] 2Admin Note: VIS GIVEN 09/23/08 belarusian 3Admin Note: 1st in series. [id number] exp 08/15/11 4Admin Note: vis 05/22 5Admin Note: VIS given 6Result Comment: [12/21/2017] JOSÉ MIGUEL MIDDLETON MA OF 05/16/05 7Result Comment: [12/21/2017] JOSÉ MIGUEL MIDDLETON MA OF 05/16/05 8Result Comment: [12/21/2017] JOSÉ MIGUEL MIDDLETON MA OF 05/16/05 9Result Comment: [12/21/2017] copy of immunization flow sheet from [facility] nurse emi estrella[12/21/2017 Uncharted] duplicate notation [...] 10:52:56 EDT, Aerosol, Route to Pharmacy Electronically, [id number], [facility] Start Date: 11/06/18 Stop Date: 04/05/19 Status: Ordered lithium 300 mg oral tablet 1 tablet = 300 mg, By Mouth, 2 times a day, # 28 tablet, 0 Refills, Maintenance, 12/16/20 9:23:00 EDT, Tablet, [facility]/pharmacy #[id number], Partial fill upon patient request if the prescription is for a schedule II opioid drug., 180, cm, 12/05/20 9:27:00 EDT,... Start Date: 12/16/20 Stop Date: 12/30/20 Status: Ordered morphine 15 mg oral tablet, immediate release 0.5 tablet = 7.5 mg, By Mouth, Every 4 hours, PRN as needed for pain, # 5 tablet, 0 Refills, Maintenance, 04/24/21 11:05:00 EST, Tablet, [facility]/pharmacy #[id number], Partial fill upon patient request, 180, cm, 12/05/20 9:27:00 EDT, Height, 118.2, kg, 12/05/20... Start Date: 04/24/21 Status: Ordered QUEtiapine 100 mg oral tablet 100 mg, 1, tablet, By Mouth, 2 times a day, # 28 tablet, Refills 0, Tot. Refills 0, Maintenance, 12/16/20 9:23:00 EDT, Route to Pharmacy Electronically, [facility]/pharmacy #[id number], Partial fill upon patient request if the [...] Exam Date Time Procedure Performing Provider Status 06/01/21 8:52 PM Foot Min 3 Views Right Milvia Collazo (Verified) Notes: (Foot Min 3 Views Right) Reason For Exam: with Pain;Trauma RESULT: Foot Min 3 Views Right Foot Min 3 Views Right CLINICAL INDICATION: Hx of Present Illness: SOB and MCO; Reason: Trauma; with Pain; Clinical Question(s): Fracture; Special Instructions: This is a protocol film and radiologist should call any findings to the Charge Nurse COMPARISONS: None TECHNIQUE: AP, lateral and oblique views of the right foot were obtained. FINDINGS: There is mild soft tissue swelling along the dorsum of the foot. There is no fracture or dislocation. MTP and IP joint spaces are maintained. The Lisfranc joint space is normally aligned. No retained foreign body. Hindfoot midfoot alignment is normal. IMPRESSION: Soft tissue swelling. No fracture or dislocation. If patient is unable to bear weight or pain is out of proportion to negative x-ray findings consider follow- up CT. WSN: [id number] Ordering Physician: Sathya Odom Dictated By: Jericho Dorado MD Dictated Date/Time: 06/01/21 9:20 pm Reviewed By: Jericho Dorado MD Signed By: Jericho Dorado MD Signed Date/Time: 06/01/21 9:20 pm Transcribed By: LJ Transcribed Date/Time: 06/01/21 9:13 pm Vital Signs Most recent to oldest [Reference Range]: 1 2 3 Oxygen Saturation [94-100 %] 96 % (06/01/21 10:00 PM) 98 % (06/01/21 8:31 PM) 95 % (06/01/21 6:41 PM) Pulse Rate [55-90 bpm] 84 bpm (06/01/21 10:00 PM) 97 bpm *H* (06/01/21 8:31 PM) 110 bpm *H* (06/01/21 6:41 PM) Blood Pressure [90-138/55-84 mm Hg] 115/73mm Hg (06/01/21 10:00 PM) 121/80mm Hg (06/01/21 8:31 PM) 147/66mm Hg *H* (06/01/21 6:41 PM) Respiratory Rate [16-30 br/min] 18 br/min (06/01/21 8:31 PM) 20 br/min (06/01/21 6:41 PM) Temperature [96.8-100.4 DegF] 97.7 DegF (06/01/21 10:00 PM) 98.4 DegF (06/01/21 8:31 PM) 98.0 DegF (06/01/21 6:41 PM) Mode of Delivery (Oxygen) Room air (06/01/21 10:00 PM) Room air (06/01/21 8:31 PM) Room air (06/01/21 6:41 PM) Blood pressure sites Arm, right (06/01/21 10:00 PM) Arm, right (06/01/21 6:41 PM) Temperature Route Oral (06/01/21 10:00 PM) Oral (06/01/21 8:31 PM) Oral (06/01/21 6:41 PM) Social History Social History Type Response Tobacco Use: 4 or less cigar ettes(less than 1/4 pack)/day in last 30 days. Other: states smoke some days. Type: Cigarettes. Previous treatment: Counseling, Nicotine replacement. Sex Male
--- OUTSIDE RECORDS SUMMARY | 2023-10-10 09:47 | XMS_ITS | Continuity of Care Document ---
Author Organization [facility] ter Address [address] [place] [address]- Care Team Providers Care Coffee Blender Name Role Phone Reilly GOODE, Tracy Lorenz Primary Care Physician [place] [facility] Date(s): 12/10/20 - 12/10/[address] [address]- Discharge Disposition: A-D/C Home Attending Physician: Amadeo Diana MD Admitting Physician: Amadeo Diana MD Referring Physician: Not on Staff, Referring [...] (PRP-T) vaccine 23 05/17/89 Recorded 1Admin Note: [facility] [id number] 2Admin Note: VIS GIVEN 09/23/08 pashto 3Admin Note: 1st in series. [id number] exp 08/15/11 4Admin Note: vis 05/22 5Admin [...] EMIGRISELDA OF 05/16/05 23Result Comment: [12/21/2017] ADDIELeonor MIDDLETON MA OF 05/16/05 Medications albuterol CFC free 90 mcg/inh inhalation aerosol 2, puffs, Inhalation, 4 times a day, PRN, USE NEEDED, # 1 each, Refills 4, Tot. Refills 4, Maintenance, 11/06/18 10:52:56 EDT, Aerosol, Route to Pharmacy Electronically, [id number], [facility] Start Date: 11/06/18 Stop Date: 04/05/19 Status: Ordered Flagyl 500 mg oral tablet 1 tablet = 500 mg, By Mouth, 3 times a day, for 10 days, # 30 tablet, 0 Refills, Acute 12/15/20 13:06:00 EDT, 12/05/20 13:06:00 EDT, Tablet, [facility]/pharmacy #[id number], Partial fill upon patient request if the prescription is for a schedule II opioid drug., 1... Start Date: 12/05/20 Stop Date: 12/15/20 Status: Ordered Flagyl 500 mg oral tablet 1 tablet = 500 mg, By Mouth, Every 8 hours, for 7 days, # 21 tablet, 0 Refills, Acute 12/12/20 17:26:00 EDT, 12/05/20 17:26:00 EDT, Tablet, [facility]/pharmacy #[id number], Partial fill upon patient request if the prescription is for a schedule II opioid drug., 18... Start Date: 12/05/20 Stop Date: 12/12/20 Status: Ordered Keflex monohydrate 500 mg oral capsule 1 capsule = 500 mg, By Mouth, 4 times a day, for 10 days, # 40 capsule, 0 Refills, Acute 12/15/20 13:06:00 EDT, 12/05/20 13:06:00 EDT, Capsule, [facility]pharmacy [id number], Partial fill upon patient request if the prescription is for a schedule II opioid drug.... Start Date: 12/05/20 Stop Date: 12/15/20 Status: Ordered Keflex monohydrate 500 mg oral capsule 1 capsule = 500 mg, By Mouth, 4 times a day, for 7 days, # 28 capsule, 0 Refills, Acute 12/12/20 17:25:00 EDT, 12/05/20 17:25:00 EDT, Capsule, [facility]acy [id number], Partial fill upon patient request ifthe prescription is for a schedule II opioid drug.,... Start Date: 12/05/20 Stop Date: 12/12/20 Status: Ordered Singulair 10 mg oral tablet [...] [Reference Range]: 1 Oxygen Saturation [94-100 %] 99 % (12/10/20 6:40 AM) Pulse Rate [55-90 bpm] 92 bpm *H* (12/10/20 6:40 AM) Blood Pressure [90-138/55-84 mm Hg] 137/ 91mm Hg (12/10/20 6:40 AM) Respiratory Rate [16-30 br/min] 16 br/mi n (12/10/20 6:40 AM) Temperature [96.8-100.4 DegF] 97.9 DegF (12/10/20 6:40 AM) Mode of Delivery (Oxygen) Room air (12/10/20 6:40 AM) Blood pressure sites Arm, left (12/10/20 6:40 AM) Temperature Route Oral (12/10/20 6:40 AM) Social History Social History Type Response Tobacco Other: PT STATES SMO KE A PACK A DAY AND WANTS TO QUIT. Type: Cigarettes. Previous treatment: Counseling, Nicotine replacement. Sex Male
--- OUTSIDE RECORDS SUMMARY | 2023-10-10 09:47 | XMS_ITS | Continuity of Care Document ---
Author Organization [facility] Address [address] [place] [address]- Care Team Providers Care Powered Bridge Specialist Name Role Phone Reilly GOODE, Tracy Lorenz Primary Care Physician [facility] Date(s): 12/14/20 - 01/13/21 [facility] [address], [place] [address] Attending Physician: Marco A Kuhn Allergies, Adverse Reactions, Alerts No Known Medication [...] (PRP-T) vaccine 23 05/17/89 Recorded 1Admin Note: [facility] [id number] 2Admin Note: VIS GIVEN 09/23/08 wolof 3Admin Note: 1st in series. [id number] exp 08/15/11 4Admin Note: vis 05/22 5Admin Note: VIS given 6Result Comment: [12/21/2017] JOSÉ MIGUEL MIDDLETON MA OF 05/16/05 7Result Comment: [12/21/2017] JOSÉ MIGUEL MIDDLETON MA OF 05/16/05 8Result Comment: [12/21/2017] JOSÉ MIGUEL MIDDLETON MA OF 05/16/05 9Result Comment: [12/21/2017] copy of immunization flow sheet from [facility] nurse emi estrella[12/21/2017 Uncharted] duplicate notation 10Result [...] MIDDLETONGRISELDA OF 05/16/05 19Result Comment: [12/21/2017] ADDIELeonor EMI, MA OF 05/16/05 20Result Comment: [12/21/2017] ADDIELeonor EMIGRISELDA OF 05/16/05 21Result Comment: [12/21/2017] ADDIELeonor EMIGRISELDA OF 05/16/05 22Result Comment: [12/21/2017] ADDIELeonor EMI, MA OF 05/16/05 23Result Comment: [12/21/2017] ADDIELeonor EMIGRISELDA OF 05/16/05 Medications albuterol CFC free 90 mcg/inh inhalation aerosol 2, puffs, Inhalation, 4 times a day, PRN, USE NEEDED, # 1 each, Refills 4, Tot. Refills 4, Maintenance, 11/06/18 10:52:56 EDT, Aerosol, Route to Pharmacy Electronically, [id number], [facility] Start Date: 11/06/18 Stop Date: 04/05/19 Status: Ordered lithium 300 mg oral tablet 1 tablet = 300 mg, By Mouth, 2 times a day, # 28 tablet, 0 Refills, Maintenance, 12/16/20 9:23:00 EDT, Tablet, [facility]/pharmacy #[id number], Partial fill upon patient request if the prescription is for a schedule II opioid drug., 180, cm, 12/05/20 9:27:00 EDT,... Start Date: 12/16/20 Stop Date: 12/30/20 Status: Ordered QUEtiapine 100 mg oral tablet 100 mg, 1, tablet, By Mouth, 2 times a day, # 28 tablet, Refills 0, Tot. Refills 0, Maintenance, 12/16/20 9:23:00 EDT, Route to Pharmacy Electronically, [facility]/pharmacy #[id number], Partial fill upon patient request if [...]
--- OUTSIDE RECORDS SUMMARY | 2023-10-10 09:47 | XMS_ITS | Continuity of Care Document ---
Author Organization [facility] ter Address [address] [place] [address]- Care Team Providers Care Tube Machine Operator Name Role Phone Reilly GOODE, Tracy Lorenz Primary Care Physician [place] [facility]09[place] - 08/09/[address] [address]- Encounter Diagnosis Fatigue(Final) - 08/09/20 Discharge Disposition: A-D/C Home Attending Physician: Guero [...] vaccine 23 05/17/89 Recorded 1Admin Note: [facility] [id number] 2Admin Note: VIS GIVEN 09/23/08 romanian 3Admin Note: 1st in series. [id number] exp 08/15/11 4Admin Note: vis 05/22 5Admin [...] EMI, MA OF 05/16/05 22Result Comment: [12/21/2017] JOSÉ MIGUEL MIDDLETONGRISELDA OF 05/16/05 23Result Comment: [12/21/2017] ADDIELeonor MIDDLETON MA OF 05/16/05 Medications albuterol CFC free 90 mcg/inh inhalation aerosol 2, puffs, Inhalation, 4 times a day, PRN, USE NEEDED, # 1 each, Refills 4, Tot. Refills 4, Maintenance, 11/06/18 10:52:56 EDT, Aerosol, Route to Pharmacy Electronically, [id number], [facility] Start Date: 11/06/18 Stop Date: 04/05/19 Status: Ordered famotidine 20 mg oral tablet 20 mg, 1, tablet, By Mouth, 2 times a day, avoid eating and drinking for 10 minutes after each dose, # 28 tablet, Refills 0, Tot. Refills 0, Maintenance, 05/06/20 12:56:00 EDT, Route to Pharmacy Electronically, [facility]/pharmacy #[id number], Partial fill upon pa... Start Date: 05/06/20 [...] Exam Date Time Procedure Performing Provider Status 08/09/20 6:48 AM Chest Portable Nikki Martinez; Auth (Verified) Notes: (Chest Portable) Reason For Exam: Chest Pain;Other: RESULT: Chest Portable Examination: Portable chest performed on 08/09/2020. History: Dizzy and lightheaded. Chest pain. Findings: A frontal view of the chest is compared to a prior study dated 02/22/2019. The cardiac and mediastinal silhouettes are within normal limits. The lungs are clear. The osseous and soft tissue structures are unremarkable. IMPRESSION: There is no acute cardiopulmonary disease. WSN: [id number] Ordering Physician: Vivienne Duckworth Dictated By: Tabatha Jansen MD Dictated Date/Time: 08/09/20 9:28 am Reviewed By: Tabatha Jansen MD Signed By: Tabatha Jansen MD Signed Date/Time: 08/09/20 9:28 am Transcribed By: LJ Transcribed Date/Time: 08/09/20 9:27 am Vital Signs Most recent to oldest [Reference Range]: 1 2 3 Oxygen Saturation [94-100 %] 99 % (08/09/20 8:46 AM) 99 % (08/09/20 7:56 AM) 98 % (08/09/20 6:26 AM) Pulse Rate [55-90 bpm] 86 bpm (08/09/20 8:46 AM) 85 bpm (08/09/20 7:56 AM) 90 bpm (08/09/20 6:26 AM) Blood Pressure [90-138/55-84 mm Hg] 140/88mm Hg *H* (08/09/20 8:46 AM) 147/98mm Hg *H* (08/09/20 7:56 AM) 144/96mm Hg *H* (08/09/20 6:26 AM) Respiratory Rate [16-30 br/min] 16 br/min (08/09/20 8:46 AM) 20 br/min (08/09/20 7:56 AM) 18 br/min (08/09/20 6:26 AM) Temperature [96.8-100.4 DegF] 97.9 DegF (08/09/20 8:46 AM) 97.8 DegF (08/09/20 7:56 AM) 98.2 DegF (08/09/20 6:26 AM) Liters per Minute 0 L/min (08/09/20 7:56 AM) Mode of Delivery (Oxygen) Room air (08/09/20 8:46 AM) Room air (08/09/20 7:56 AM) Room air (08/09/20 6:26 AM) Blood pressure sites Arm, left (08/09/20 8:46 AM) Arm, left (08/09/20 7:56 AM) Arm, left (08/09/20 6:26 AM) Temperature Route Oral (08/09/20 8:46 AM) Oral (08/09/20 7:56 AM) Oral (08/09/20 6:26 AM) Social History Social History Type Response Tobacco Other: PT STATES SMO KE A PACK A DAY AND WANTS TO QUIT. Type: Cigarettes. Previous treatment: Counseling, Nicotine replacement. Sex Male
--- OUTSIDE RECORDS SUMMARY | 2023-10-10 09:47 | XMS_ITS | Continuity of Care Document ---
Author Organization [facility] ter Address [address] [place] [address]- Care Team Providers Care Mechanical Process Engineer Name Role Phone Reilly GOODE, Tracy Lorenz Primary Care Physician [place] [facility] [place] - 04/24/[address] [address]- Encounter Diagnosis Pain, dental(Final) - 04/24/21 Pain, dental(Final) - 04/24/21 Discharge Disposition: A-D/C Home Attending Physician: Sharlene Queen MD Admitting Physician: Sharlene Queen MD Referring Physician: Not on Staff, Referring [...] vaccine 23 05/17/89 Recorded 1Admin Note: [facility] [id number] 2Admin Note: VIS GIVEN 09/23/08 bulgarian 3Admin Note: 1st in series. [id number] exp 08/15/11 4Admin Note: vis 05/22 5Admin Note: VIS given 6Result Comment: [12/21/2017] JOSÉ MIGUEL MIDDLETON MA OF 05/16/05 7Result Comment: [12/21/2017] JOSÉ MIGUEL MIDDLETON MA OF 05/16/05 8Result Comment: [12/21/2017] JOSÉ MIGUEL MIDDLETON MA OF 05/16/05 9Result Comment: [12/21/2017] copy of immunization flow sheet from [facility] nurse emi estrella[12/21/2017 Uncharted] duplicate notation [...] EMI, MA OF 05/16/05 17Result Comment: [12/21/2017] JOSÉ MIGUEL MIDDLETON MA OF 05/16/05 18Result Comment: [12/21/2017] ADDIELeonor EMI, MA OF 05/16/05 19Result Comment: [12/21/2017] JOSÉ MIGUEL EMI, MA OF 05/16/05 20Result Comment: [12/21/2017] [...] 10:52:56 EDT, Aerosol, Route to Pharmacy Electronically, [id number], [facility] Start Date: 11/06/18 Stop Date: 04/05/19 Status: Ordered lithium 300 mg oral tablet 1 tablet = 300 mg, By Mouth, 2 times a day, # 28 tablet, 0 Refills, Maintenance, 12/16/20 9:23:00 EDT, Tablet, [facility]/pharmacy #[id number], Partial fill upon patient request if the prescription is for a schedule II opioid drug., 180, cm, 12/05/20 9:27:00 EDT,... Start Date: 12/16/20 Stop Date: 12/30/20 Status: Ordered morphine 15 mg oral tablet, immediate release 0.5 tablet = 7.5 mg, By Mouth, Every 4 hours, PRN as needed for pain, # 5 tablet, 0 Refills, Maintenance, 04/24/21 11:05:00 EST, Tablet, [facility]/pharmacy #[id number], Partial fill upon patient request, 180, cm, 12/05/20 9:27:00 EDT, Height, 118.2, kg, 12/05/20... Start Date: 04/24/21 Status: Ordered MorPHINE Inj 4 mg, Injection, IV Push Slowly, Every 15 minutes for 3 doses/times, PRN for Pain , Moderate, and SBP greater than 100, STAT, 04/24/21 8:11:00 EST, Stop date Limited # of times Start Date: 04/24/21 Stop Date: 04/24/21 Status: Discontinued QUEtiapine 100 mg oral tablet 100 mg, 1, tablet, By Mouth, 2 times a day, # 28 tablet, Refills 0, Tot. Refills 0, Maintenance, 12/16/20 9:23:00 EDT, Route to Pharmacy Electronically, [facility]/pharmacy #[id number], Partial fill upon patient request if the [...] 3 Oxygen Saturation [94-100 %] 99 % (04/24/21 11:00 AM) 96 % (04/24/21 8:13 AM) 97 % (04/24/21 6:46 AM) Pulse Rate [55-90 bpm] 95 bpm *H* (04/24/21 11:00 AM) 107 bpm *H* (04/24/21 8:13 AM) 110 bpm *H* (04/24/21 6:46 AM) Blood Pressure [90-138/55-84 mm Hg] 156/100mm Hg *H* (04/24/21 11:00 AM) 143/82mm Hg *H* (04/24/21 8:13 AM) 161/105mm Hg *H* (04/24/21 6:46 AM) Respiratory Rate [16-30 br/min] 18 br/min (04/24/21 11:00 AM) 18 br/min (04/24/21 8:58 AM) 18 br/min (04/24/21 8:13 AM) Temperature [96.8-100.4 DegF] 98.0 DegF (04/24/21 8:13 AM) 97.7 DegF (04/24/21 6:46 AM) Mode of Delivery (Oxygen) Room air (04/24/21 11:00 AM) Room air (04/24/21 8:13 AM) Room air (04/24/21 6:46 AM) Blood pressure sites Arm, left (04/24/21 11:00 AM) Arm, left (04/24/21 8:13 AM) Arm, right (04/24/21 6:46 AM) Temperature Route Oral (04/24/21 8:13 AM) Oral (04/24/21 6:46 AM) Social History Social History Type Response Tobacco Use: 4 or less cigar ettes(less than 1/4 pack)/day in last 30 days. Other: states smoke some days. Type: Cigarettes. Previous treatment: Counseling, Nicotine replacement. Sex Male
--- OUTSIDE RECORDS SUMMARY | 2023-10-10 09:47 | XMS_ITS | Continuity of Care Document ---
Author Organization [facility] Address [address] [place] [address]- Care Team Providers Care Benefits Analyst Name Role Phone Not on Staff, PCP Primary Care Physician Unavail able [facility] Date[facility]s): 02/[facility]/19 - 02/03/[address] [address]- [facility] Encounter Diagnosis Chest cold(Final) - 02/03/19 Discharge Disposition: A-D/C Home Attending Physician: Kashmir Dewitt MD Admitting Physician: Kashmir Dewitt MD Referring Physician: Not on Staff, Referring [...] Note: [facility] [place] [id number] 2Admin Note: VIS GIVEN 09/23/08 norwegian 3Admin Note: 1st in series. [id number] exp 08/15/11 4Admin Note: vis 05/22 5Admin [...] EMIGRISELDA OF 05/16/05 22Result Comment: [12/21/2017] ADDIELeonor EMIGRISELDA OF 05/16/05 23Result Comment: [12/21/2017] ADDIELeonor EMI, MA OF 05/16/05 Medications albuterol CFC free 90 mcg/inh inhalation aerosol 2, puffs, Inhalation, 4 times a day, PRN, USE NEEDED, # 1 each, Refills 4, Tot. Refills 4, Maintenance, 11/06/18 10:52:56 EDT, Aerosol, Route to Pharmacy Electronically, [id number], [facility] Start Date: 11/06/18 Stop Date: 04/05/19 [...] Exam Date Time Procedure Performing Provider Status 02/03/19 6:26 AM Chest 2 Views Frontal and Lat Sabrina Torres (Verified) Notes: (Chest 2 Views Frontal and Lat) Reason For Exam: Shortness of Breath, Fever;Other: RESULT: Chest 2 Views Frontal and Lat Chest 2 Views Frontal and Lat Indication: Shortness of breath, fever. COMPARISON: 01/30/2019 FINDINGS: LINES AND TUBES: None. LUNGS AND PLEURA: Low lung volumes with mild basilar atelectasis. Lungs are otherwise clear with no consolidation. No pleural effusion. No pneumothorax. HEART, MEDIASTINUM AND LETICIA: Heart is normal in size. Normal mediastinal and hilar contour. BONES AND SOFT TISSUES: No acute abnormality. IMPRESSION: No acute abnormality. WSN: [id number] Dictated By: Narinder Neal MD Dictated Date/Time: 02/03/19 9:44 am Reviewed By: Narinder Neal MD Signed By: Narinder Neal MD Signed Date/Time: 02/03/19 9:44 am Transcribed By: LJ Transcribed Date/Time: 02/03/19 9:44 am Vital Signs Most recent to oldest [Reference Range]: 1 2 3 Weight 100.710 kg (02/03/19 3:56 AM) 100.710 kg (02/03/19 1:32 AM) Oxygen Saturation [94-100 %] 99 % (02/03/19 7:02 AM) 97 % (02/03/19 5:14 AM) 97 % (02/03/19 3:56 AM) Pulse Rate [55-90 bpm] 83 bpm (02/03/19 7:02 AM) 90 bpm (02/03/19 5:14 AM) 73 bpm (02/03/19 3:56 AM) Blood Pressure [90-138/55-84 mm Hg] 125/81mm Hg (02/03/19 7:02 AM) 138/95mm Hg (02/03/19 5:14 AM) 144/109mm Hg *H* (02/03/19 3:56 AM) Respiratory Rate [16-30 br/min] 18 br/min (02/03/19 7:02 AM) 18 br/min (02/03/19 5:14 AM) 20 br/min (02/03/19 3:56 AM) Temperature [96.8-100.4 DegF] 98.3 DegF (02/03/19 7:02 AM) 98.1 DegF (02/03/19 3:56 AM) 97.5 DegF (02/03/19 1:32 AM) Mode of Delivery (Oxygen) Room air (02/03/19 7:02 AM) Room air (02/03/19 5:14 AM) Room air (02/03/19 3:56 AM) Blood pressure sites Arm, right (02/03/19 3:56 AM) Temperature Route Oral (02/03/19 3:56 AM) Oral (02/03/19 1:32 AM) Social History Social History Type Response Tobacco Other: PT STATES SMO KE A PACK A DAY AND WANTS TO QUIT. Type: Cigarettes. Previous treatment: Counseling, Nicotine replacement. Sex
--- OUTSIDE RECORDS SUMMARY | 2023-10-10 09:47 | XMS_ITS | Continuity of Care Document ---
Author Organization [facility] ter Address [address] [place] [address]- Care Team Providers Care Cnc Maintenance Technician Name Role Phone Not on Staff, PCP Primary Care Physician Unavail able [facility] Date[facility]s): [facility] - 02/05/[address] [address]- [facility] Encounter Diagnosis Abdominal pain(Final) - 02/05/19 Discharge Disposition: A-D/C Home Attending Physician: Monty [...] 05/17/89 Recorded 1Admin Note: [facility] [id number] 2Admin Note: VIS GIVEN 09/23/08 french 3Admin Note: 1st in series. [id number] exp 08/15/11 4Admin Note: vis 05/22 5Admin [...] MIDDLETONGRISELDA OF 05/16/05 23Result Comment: [12/21/2017] ADDIELeonor EMI, MA OF 05/16/05 Medications acetaminophen 325 mg [...] 10:52:56 EDT, Aerosol, Route to Pharmacy Electronically, [id number], [facility] Start Date: 11/06/18 Stop Date: 04/05/19 [...] Range]: 1 2 Oxygen Saturation [94-100 %] 99 % (02/05/19 6:17 AM) 100 % (02/05/19 4:23 AM) Pulse Rate [55-90 bpm] 89 bpm (02/05/19 6:17 AM) 81 bpm (02/05/19 4:23 AM) Blood Pressure [90-138/55-84 mm Hg] 131/ 74mm Hg (02/05/19 6:17 AM) 146/92mm Hg *H* (02/05/19 4:23 AM) Respiratory Rate [16-30 br/min] 16 br/mi n (02/05/19 6:17 AM) 16 br/min (02/05/19 4:23 AM) Temperature [96.8-100.4 DegF] 97.4 DegF (02/05/19 6:17 AM) 97.4 DegF (02/05/19 4:23 AM) Mode of Delivery (Oxygen) Room air (02/05/19 6:17 AM) Room air (02/05/19 4:23 AM) Blood pressure sites Arm, left (02/05/19 6:17 AM) Arm, right (02/05/19 4:23 AM) Temperature Route Oral (02/05/19 6:17 AM) Oral (02/05/19 4:23 AM) Social History Social History Type Response Tobacco Other: PT STATES SMO KE A PACK A DAY AND WANTS TO QUIT. Type: Cigarettes. Previous treatment: Counseling, Nicotine replacement. Sex Male
--- OUTSIDE RECORDS SUMMARY | 2023-10-10 09:47 | XMS_ITS | Continuity of Care Document ---
Author Organization [facility] ter Address [address] [place] [address]- Care Team Providers Care Regional Administrative Assistant Name Role Phone Not on Staff, PCP Primary Care Physician Unavail able [facility]counter [facility] Date(s): 07/25/21 - 07/25/[address] [address]- Encounter Diagnosis Suicidal ideation(Final) - 07/25/21 Discharge Disposition: A-D/C Home Attending Physician: Jesus Alberto Hernandez MD Admitting Physician: Jesus Alberto Hernandez MD Referring Physician: Not on Staff, Referring [...] vaccine 23 05/17/89 Recorded 1Admin Note: [facility] [id number] 2Admin Note: VIS GIVEN 09/23/08 belarusian 3Admin Note: 1st in series. [id number] exp 08/15/11 4Admin Note: vis 05/22 5Admin [...] 10:52:56 EDT, Aerosol, Route to Pharmacy Electronically, [id number], [facility]. Start Date: 11/06/18 Stop Date: 04/05/19 [...] 0 Refills, Maintenance, 12/16/20 9:23:00 EDT, Tablet, [facility]/pharmacy #[id number], Partial fill upon patient request if the prescription is for a schedule II opioid drug., 180, cm, 12/05/20 9:27:00 EDT,... Start Date: 12/16/20 Stop Date: 12/30/20 Status: Ordered morphine 15 mg oral tablet, immediate release 0.5 tablet = 7.5 mg, By Mouth, Every 4 hours, PRN as needed for pain, # 5 tablet, 0 Refills, Maintenance, 04/24/21 11:05:00 EST, Tablet, [facility]/pharmacy #[id number], Partial fill upon patient request, [...] 12/16/20 9:23:00 EDT, Route to Pharmacy Electronically, [facility]/pharmacy #[id number], Partial fill upon patient request if the [...] 2 Oxygen Saturation [94-100 %] 99 % (07/25/21 2:37 AM) 100 % (07/25/21 1:01 AM) Pulse Rate [55-90 bpm] 93 bpm *H* (07/25/21 2:37 AM) 90 bpm (07/25/21 1:01 AM) Blood Pressure [90-138/55-84 mm Hg] 135/ 93mm Hg (07/25/21 2:37 AM) 146/95mm Hg *H* (07/25/21 1:01 AM) Respiratory Rate [16-30 br/min] 20 br/mi n (07/25/21 2:37 AM) 20 br/min (07/25/21 1:01 AM) Temperature [96.8-100.4 DegF] 97.9 DegF (07/25/21 2:37 AM) 97.4 DegF (07/25/21 1:01 AM) Mode of Delivery (Oxygen) Room air (07/25/21 2:37 AM) Room air (07/25/21 1:01 AM) Blood pressure sites Arm, right (07/25/21 2:37 AM) Arm, right (07/25/21 1:01 AM) Temperature Route Oral (07/25/21 2:37 AM) Oral (07/25/21 1:01 AM) Social History Social History Type Response Tobacco Use: 4 or less cigar ettes(less than 1/4 pack)/day in last 30 days. Other: states smoke some days. Type: Cigarettes. Previous treatment: Counseling, Nicotine replacement. Sex Male
--- OUTSIDE RECORDS SUMMARY | 2023-10-10 09:47 | XMS_ITS | Continuity of Care Document ---
Author Organization [facility] ter Address [address] [place] [address]- Care Team Providers Care Housing Management Officer Name Role Phone Not on Staff, PCP Primary Care Physician Unavail able [facility]counter [facility] Date(s): 08/02/21 - 08/03/[address] [address]- Encounter Diagnosis Alcohol intoxication(Final) - 08/03/21 Discharge Disposition: A-D/C Home Attending Physician: Robyn [...] (PRP-T) vaccine 23 05/17/89 Recorded 1Admin Note: [facility] [id number] 2Admin Note: VIS GIVEN 09/23/08 irish 3Admin Note: 1st in series. [id number] exp 08/15/11 4Admin Note: vis 05/22 5Admin [...] OF 05/16/05 21Result Comment: [12/21/2017] JOSÉ MIGUEL MDIDLETON GRISELDA OF 05/16/05 22Result Comment: [12/21/2017] JOSÉ MIGUEL MIDDLETON MA OF 05/16/05 23Result Comment: [12/21/2017] JOSÉ MIGUEL MIDDLTEON GRISELDA OF 05/16/05 Medications albuterol CFC free 90 mcg/inh inhalation aerosol 2, puffs, Inhalation, 4 times a day, PRN, USE NEEDED, # 1 each, Refills 4, Tot. Refills 4, Maintenance, 11/06/18 10:52:56 EDT, Aerosol, Route to Pharmacy Electronically, [id number], [facility]. Start Date: 11/06/18 Stop Date: 04/05/19 Status: [...] Refills, Maintenance, 12/16/20 9:23:00 EDT, Tablet, [facility]/pharmacy #[id number], Partial fill upon patient request if the prescription is for a schedule II opioid drug., 180, cm, 12/05/20 9:27:00 EDT,... Start Date: 12/16/20 Stop Date: 12/30/20 Status: Ordered morphine 15 mg oral tablet, immediate release 0.5 tablet = 7.5 mg, By Mouth, Every 4 hours, PRN as needed for pain, # 5 tablet, 0 Refills, Maintenance, 04/24/21 11:05:00 EST, Tablet, [facility]/pharmacy #[id number], Partial fill upon patient request, [...] 9:23:00 EDT, Route to Pharmacy Electronically, [facility]/pharmacy #[id number], Partial fill upon patient request [...] Exam Date Time Procedure Performing Provider Status 08/03/21 4:41 AM Chest 2 Views Frontal and Lat Case , Len; Auth (Verified) Notes: (Chest 2 Views Frontal and Lat) Reason For Exam: Chest Pain;Other: RESULT: Chest 2 Views Frontal and Lat Examination: Chest performed on 08/03/2021. History: Chest pain. Findings: Frontal and lateral views of the chest are compared to a prior study dated 05/17/21. The cardiac and mediastinal silhouettes are within normal limits. Low lung volumes are present The lungs are clear. The osseous and soft tissue structures are unremarkable. Impression: There is no acute cardiopulmonary disease. WSN: [id number] Ordering Physician: Georgia Gomez Dictated By: Tabatha Jansen MD Dictated Date/Time: 08/03/21 7:53 am Reviewed By: Tabatha Jansen MD Signed By: Tabatha Jansen MD Signed Date/Time: 08/03/21 7:53 am Transcribed By: LJ Transcribed Date/Time: 08/03/21 7:53 am Vital Signs Most recent to oldest [Reference Range]: 1 2 3 Oxygen Saturation [94-100 %] 95 % (08/03/21 9:17 AM) 96 % (08/03/21 4:42 AM) 96 % (08/03/21 1:35 AM) Pulse Rate [55-90 bpm] 92 bpm *H* (08/03/21 9:17 AM) 98 bpm *H* (08/03/21 4:42 AM) 103 bpm *H* (08/03/21 1:35 AM) Blood Pressure [90-138/55-84 mm Hg] 107/87mm Hg (08/03/21 9:17 AM) 127/87mm Hg (08/03/21 4:42 AM) 119/70mm Hg (08/03/21 12:17 AM) Respiratory Rate [16-30 br/min] 20 br/min (08/03/21 9:17 AM) 20 br/min (08/03/21 4:42 AM) 18 br/min (08/03/21 1:35 AM) Temperature [96.8-100.4 DegF] 97.1 DegF (08/03/21 1:35 AM) Liters per Minute 4 L/min (08/03/21 12:18 AM) Mode of Delivery (Oxygen) Room air (08/03/21 9:17 AM) Room air (08/03/21 4:42 AM) Room air (08/03/21 1:35 AM) Blood pressure sites Arm, right (08/03/21 12:17 AM) Temperature Route Axillary (08/03/21 1:35 AM) Social History Social History Type Response Tobacco Use: 4 or less cigar ettes(less than 1/4 pack)/day in last 30 days. Other: states smoke some days. Type: Cigarettes. Previous treatment: Counseling, Nicotine replacement. Sex Male
--- OUTSIDE RECORDS SUMMARY | 2023-10-10 09:47 | XMS_ITS | Continuity of Care Document ---
Author Organization [facility] Address [address] [place] [address]- Care Team Providers Care Piece Hand Name Role Phone Not on Staff, PCP Primary Care Physician Unavail able [facility] Date[facility]s): 06[facility] - 07/03/21 [facility] [address] [place], [place] [address] Attending Physician: trMarco A Allergies, Adverse Reactions, Alerts No Known Medication Allergies Substance Reaction Severity Status Cats 1 Active Pineapple Active 1itchy eyes, throat irritation, runny nose Immunizations Given and Recorded Vaccine Date Status Refusal Reason influenza virus vaccine, inactivated 12/21/17 Give n influenza virus vaccine, inactivated 1 10/31/16 Gi nish influenza virus vaccine, inactivated 2 10/23/08 Gi nsih Hepatitis A-Hepatitis B Vaccine 3 12/16/10 Given [...] (PRP-T) vaccine 23 05/17/89 Recorded 1Admin Note: [facility] [id number] 2Admin Note: VIS GIVEN 09/23/08 faroese 3Admin Note: 1st in series. [id number] exp 08/15/11 4Admin Note: vis 05/22 5Admin Note: VIS given 6Result Comment: [12/21/2017] JOSÉ MIGUEL MIDDLETON MA OF 05/16/05 7Result Comment: [12/21/2017] JOSÉ MIGUEL MIDDLETON MA OF 05/16/05 8Result Comment: [12/21/2017] JOSÉ MIGUEL MIDDLETON MA OF 05/16/05 9Result Comment: [12/21/2017] copy of immunization flow sheet [facility] emi estrella[12/21/2017 Uncharted] duplicate notation [...] ADDIELeonor EMIGRISELDA OF 05/16/05 21Result Comment: [12/21/2017] JOSÉ MIGUEL MIDDLETONGRISELDA OF 05/16/05 22Result Comment: [12/21/2017] ADDIELeonor EMI, MA OF 05/16/05 23Result Comment: [12/21/2017] ADDIELeonor EMIGRISELDA OF 05/16/05 Medications albuterol CFC free 90 mcg/inh inhalation aerosol 2, puffs, Inhalation, 4 times a day, PRN, USE NEEDED, # 1 each, Refills 4, Tot. Refills 4, Maintenance, 11/06/18 10:52:56 EDT, Aerosol, Route to Pharmacy Electronically, [id number], [facility] Start Date: 11/06/18 Stop Date: 04/05/19 Status: Ordered lithium 300 mg oral tablet 1 tablet = 300 mg, By Mouth, 2 times a day, # 28 tablet, 0 Refills, Maintenance, 12/16/20 9:23:00 EDT, Tablet, [facility]/pharmacy #[id number], Partial fill upon [...] 0 Refills, Maintenance, 04/24/21 11:05:00 EST, Tablet, [facility]/pharmacy #[id number], Partial fill upon patient request, 180, cm, 12/05/20 9:27:00 EDT, Height, 118.2, kg, 12/05/20... Start Date: 04/24/21 Status: Ordered QUEtiapine 100 mg oral tablet 100 mg, 1, tablet, By Mouth, 2 times a day, # 28 tablet, Refills 0, Tot. Refills 0, Maintenance, 12/16/20 9:23:00 EDT, Route to Pharmacy Electronically, [facility]/pharmacy #[id number], Partial fill upon patient request if the [...]
--- OUTSIDE RECORDS SUMMARY | 2023-10-10 09:47 | XMS_ITS | Continuity of Care Document ---
Author Organization [facility] ter Address [address] [place] [address]- Care Team Providers Care Slinger Sequins Name Role Phone Reilly OGODE, Tracy Lorenz Primary Care Physician [place] [facility] [place] - 10/02/[address] [address]- Discharge Disposition: A-D/C Walkout Attending Physician: Not [...] vaccine 23 05/17/89 Recorded 1Admin Note: [facility] [id number] 2Admin Note: VIS GIVEN 09/23/08 australian 3Admin Note: 1st in series. [id number] exp 08/15/11 4Admin Note: vis 05/22 5Admin Note: VIS given 6Result Comment: [12/21/2017] JOSÉ MIGUEL MIDDLETON MA OF 05/16/05 7Result Comment: [12/21/2017] JOSÉ MIGUEL MIDDLETON MA OF 05/16/05 8Result Comment: [12/21/2017] JOSÉ MIGUEL MIDDLETON MA OF 05/16/05 9Result Comment: [12/21/2017] copy of immunization flow sheet from [facility] nurse conrado estrella[12/21/2017 Uncharted] duplicate notation 10Result [...] 10:52:56 EDT, Aerosol, Route to Pharmacy Electronically, [id number], [facility] Start Date: 11/06/18 Stop Date: 04/05/19 Status: Ordered famotidine 20 mg oral tablet 20 mg, 1, tablet, By Mouth, 2 times a day, avoid eating and drinking for 10 minutes after each dose, # 28 tablet, Refills 0, Tot. Refills 0, Maintenance, 05/06/20 12:56:00 EDT, Route to Pharmacy Electronically, [facility]/pharmacy #[id number], Partial fill upon pa... Start Date: 05/06/20 [...] [Reference Range]: 1 Oxygen Saturation [94-100 %] 97 % (10/02/20 1:55 AM) Pulse Rate [55-90 bpm] 119 bpm *H* (10/02/20 1:55 AM) Blood Pressure [90-138/55-84 mm Hg] 127/ 75mm Hg (10/02/20 1:55 AM) Respiratory Rate [16-30 br/min] 16 br/mi n (10/02/20 1:55 AM) Temperature [96.8-100.4 DegF] 98.4 DegF (10/02/20 1:55 AM) Mode of Delivery (Oxygen) Room air (10/02/20 1:55 AM) Blood pressure sites Arm, left (10/02/20 1:55 AM) Temperature Route Oral (10/02/20 1:55 AM) Social History Social History Type Response Tobacco Other: PT STATES SMO KE A PACK A DAY AND WANTS TO QUIT. Type: Cigarettes. Previous treatment: Counseling, Nicotine replacement. Sex Male
--- OUTSIDE RECORDS SUMMARY | 2023-10-10 09:47 | XMS_ITS | Continuity of Care Document ---
Author Organization [facility] ter Address [address] [place] [address]- Care Team Providers Care Sponsorship Manager Name Role Phone Not on Staff, PCP Primary Care Physician Unavail able Encounter [facility] Date(s): 07/23/21 - 07/24/[address] [address]- Encounter Diagnosis Acute depression(Final) - 07/24/21 Discharge Disposition: A-D/C Home Attending Physician: Robyn [...] 06/30/99 Record ed Poliovirus Vaccine, Inactivated 15 3/16/94 Record ed Poliovirus Vaccine, Inactivated 16 05/17/89 Record ed Poliovirus Vaccine, Inactivated 17 09/21/88 Record ed Poliovirus Vaccine, Inactivated 18 03/03/88 Record ed diphtheria/tetanus/pertussis, acel(DTaP) 19 05/17/89 Recorded diphtheria/tetanus/pertussis, acel(DTaP) 20 07/07/88 Recorded diphtheria/tetanus/pertussis, acel(DTaP) 21 03/03/88 Recorded diphtheria/tetanus/pertussis, acel(DTaP) 22 87 Recorded diphtheria/tetanus/pertussis, acel(DTaP) 87 Recorded haemophilus b conjugate (PRP-T) vaccine 23 05/17/89 Recorded 1Admin Note: [facility] [id number] 2Admin Note: VIS GIVEN 09/23/08 [place] 3Admin Note: 1st in series. [id number] exp 08/15/11 4Admin Note: vis 05/22 5Admin [...] OF 05/16/05 17Result Comment: [12/21/2017] JOSÉ MIGUEL EMI, MA OF 05/16/05 18Result Comment: [12/21/2017] JOSÉ MIGUEL MIDDLETON MA OF 05/16/05 19Result Comment: [12/21/2017] JOSÉ MIGUEL MIDDLETON MA OF 05/16/05 20Result Comment: [12/21/2017] JOSÉ MIGUEL MIDDLETON MA OF 05/16/05 21Result Comment: [12/21/2017] JOSÉ MIGUEL MIDDLETON MA OF 05/16/05 22Result Comment: [12/21/2017] JOSÉ MIGUEL MIDDLETON MA OF 05/16/05 23Result Comment: [12/21/2017] JOSÉ MIGUEL MIDDLETON MA OF 05/16/05 Medications Acetaminophen Tablet 650 mg, Tablet, By Mouth, Every 8 hours, PRN for Pain , Moderate, STAT, 07/23/21 22:10:00 EDT Start Date: 07/23/21 Stop Date: 07/24/21 Status: Discontinued albuterol CFC free 90 mcg/inh inhalation aerosol 2, puffs, Inhalation, 4 times a day, PRN, USE NEEDED, # 1 each, Refills 4, Tot. Refills 4, Maintenance, 11/06/18 10:52:56 EDT, Aerosol, Route to Pharmacy Electronically, [id number], [facility]. Start Date: 11/06/18 Stop Date: 04/05/19 [...] opioid drug. Start Date: 07/23/21 Status: Ordered Ibuprofen Tablet 400 mg, Tablet, By Mouth, Every 8 hours, PRN for Pain , Moderate, STAT, 07/23/21 22:10:00 EDT Start Date: 07/23/21 Stop Date: 07/24/21 Status: Discontinued lithium 300 mg oral tablet 1 tablet = 300 mg, By Mouth, 2 times a day, # 28 tablet, 0 Refills, Maintenance, 12/16/20 9:23:00 EDT, Tablet, [facility]/pharmacy #[id number], Partial fill upon patient request if the prescription is for a schedule II opioid drug., 180, cm, 12/05/20 9:27:00 EDT,... Start Date: 12/16/20 Stop Date: 12/30/20 Status: Ordered morphine 15 mg oral tablet, immediate release 0.5 tablet = 7.5 mg, By Mouth, Every 4 hours, PRN as needed for pain, # 5 tablet, 0 Refills, Maintenance, 04/24/21 11:05:00 EST, Tablet, [facility]/pharmacy #[id number], Partial fill upon patient request, [...] 12/16/20 9:23:00 EDT, Route to Pharmacy Electronically, [facility]/pharmacy #[id number], Partial fill upon patient request if the [...] 3 Oxygen Saturation [94-100 %] 99 % (07/24/21 6:20 AM) 95 % (07/23/21 11:02 PM) 99 % (07/23/21 9:47 PM) Pulse Rate [55-90 bpm] 100 bpm *H* (07/24/21 6:20 AM) 101 bpm *H* (07/23/21 11:02 PM) 101 bpm *H* (07/23/21 9:47 PM) Blood Pressure [90-138/55-84 mm Hg] 143/96mm Hg *H* (07/24/21 6:20 AM) 140/95mm Hg *H* (07/23/21 11:02 PM) 145/100mm Hg *H* (07/23/21 9:47 PM) Respiratory Rate [16-30 br/min] 18 br/min (07/24/21 6:20 AM) 17 br/min (07/24/21 1:56 AM) 17 br/min (07/24/21 1:55 AM) Temperature [96.8-100.4 DegF] 97.8 DegF (07/23/21 11:02 PM) 98.7 DegF (07/23/21 9:47 PM) Mode of Delivery (Oxygen) Room air (07/24/21 6:20 AM) Room air (07/23/21 11:02 PM) Room air (07/23/21 9:47 PM) Blood pressure sites Arm, right (07/24/21 6:20 AM) Arm, left (07/23/21 11:02 PM) Arm, left (07/23/21 9:47 PM) Temperature Route Oral (07/23/21 11:02 PM) Oral (07/23/21 9:47 PM) Social History Social History Type Response Tobacco Use: 4 or less cigar ettes(less than 1/4 pack)/day in last 30 days. Other: states smoke some days. Type: Cigarettes. Previous treatment: Counseling, Nicotine replacement. Sex Male
--- OUTSIDE RECORDS SUMMARY | 2023-10-10 09:47 | XMS_ITS | Continuity of Care Document ---
Author Organization [facility] ter Address [address] [place] [address]- Care Team Providers Care Rehab Office Coordinator Name Role Phone Reilly GOODE, Tracy Lorenz Primary Care Physician Encounter [facility] Date(s): 05/17/21 - 05/17/[address] [address]- Encounter Diagnosis Alcohol intoxication(Final) - 05/17/21 Discharge Disposition: A-D/C Home Attending Physician: Sim Chavez MD Admitting Physician: Sim Chavez MD Referring Physician: Not on Staff, Referring [...] 1Admin Note: [facility] [id number] 2Admin Note: VIS GIVEN 09/23/08 swedish 3Admin Note: 1st in series. [id number] exp 08/15/11 4Admin Note: vis 05/22 5Admin Note: VIS given 6Result Comment: [12/21/2017] JOSÉ MIGUEL MIDDLETON MA OF 05/16/05 7Result Comment: [12/21/2017] JOSÉ MIGUEL MIDDLETON MA OF 05/16/05 8Result Comment: [12/21/2017] JOSÉ MIGUEL MIDDLETON MA OF 05/16/05 9Result Comment: [12/21/2017] copy of immunization flow sheet from [facility] nurse conrado estrella[12/21/2017 Uncharted] duplicate notation [...] 10:52:56 EDT, Aerosol, Route to Pharmacy Electronically, [id number], [facility] Start Date: 11/06/18 Stop Date: 04/05/19 Status: Ordered amoxicillin 500 mg oral capsule 1 capsule = 500 mg, By Mouth, 3 times a day, for 10 days, # 30 capsule, 0 Refills, Acute 05/18/21 3:23:00 EDT, 05/08/21 3:23:00 EDT, Capsule, [facility]/pharmacy #[id number], Partial fill upon patient request if the prescription is for a schedule II opioid drug.,... Start Date: 05/08/21 Stop Date: 05/18/21 Status: Ordered Augmentin 875 mg-125 mg oral tablet 1 tablet, By Mouth, Every 12 hours, for 7 days, # 14 tablet, 0 Refills, Acute 05/24/21 7:19:00 EDT,05/17/21 7:19:00 EDT, Tablet, [facility]/pharmacy #[id number], Partial fill upon patient request if the prescription is for a schedule II opioid drug., 180, cm, 10/... Start Date: 05/17/21 Stop Date: 05/24/21 Status: Ordered ibuprofen 400 mg oral tablet 400 mg, 1, tablet, By Mouth, Every 4 hours, PRN, for 14 days, # 60 tablet, Refills 0, Tot. Refills 0, Acute 05/22/21 4:32:00 EDT, Pain , Moderate, 05/08/21 4:32:00 EDT, Route to Pharmacy Electronically, [facility]/pharmacy #[id number], Partial fill upon patient re... Start [...] 0 Refills, Maintenance, 04/24/21 11:05:00 EST, Tablet, [facility]/pharmacy #[id number], Partial fill upon patient request, 180, [...] Exam Date Time Procedure Performing Provider Status 05/17/21 3:21 AM Chest Portable Case , Len; Auth (Veri fied) Notes: (Chest Portable) Reason For Exam: Shortness of Breath RESULT: Chest Portable Chest Portable Reason: Shortness of Breath; Clinical Question(s): CHF COMPARISON: 10/28/2020. Earlier studies reviewed. FINDINGS: LINES AND TUBES: None. LUNGS AND PLEURA: Moderate to severe hypoinflation. Mild bibasilar opacity, left more than right, probably atelectasis but cannot exclude mild infiltrate, particularly near the left lateral costophrenic angle. Mild vascular crowding about the leticia but the vessels remain well-defined. No edema. No evidence of right pleural effusion. Cannot exclude small left pleural effusion due to opacity inthe lateral costophrenic angle region. No pneumothorax. HEART, MEDIASTINUM AND LETICIA: Heart is normal in size. Normal upper mediastinal and hilar contour. BONES AND SOFT TISSUES: No acute abnormality. IMPRESSION: Hypoinflation. Lateral left base opacity likely reflects atelectasis, but cannot exclude superimposed infiltrate or trace left pleural effusion. No evidence of edema. WSN: [id number] Ordering Physician: Keith Christy V Dictated By: Jericho Diaz MD Dictated Date/Time: 05/17/21 8:29 am Reviewed By: Jericho Diaz MD Signed By: Jericho Diaz MD Signed Date/Time: 05/17/21 8:29 am Transcribed By: LJ Transcribed Date/Time: 05/17/21 8:28 am Vital Signs Most recent to oldest [Reference Range]: 1 2 Oxygen Saturation [94-100 %] 95 % (05/17/21 5:12 AM) 97 % (05/17/21 3:20 AM) Pulse Rate [55-90 bpm] 110 bpm *H* (05/17/21 5:12 AM) 101 bpm *H* (05/17/21 3:20 AM) Blood Pressure [90-138/55-84 mm Hg] 118/ 65mm Hg (05/17/21 5:12 AM) 144/90mm Hg *H* (05/17/21 3:20 AM) Respiratory Rate [16-30 br/min] 18 br/mi n (05/17/21 5:12 AM) 18 br/min (05/17/21 3:20 AM) Temperature [96.8-100.4 DegF] 98.9 DegF (05/17/21 3:20 AM) Mode of Delivery (Oxygen) Room air (05/17/21 5:12 AM) Room air (05/17/21 3:20 AM) Temperature Route Oral (05/17/21 3:20 AM) Social History Social History Type Response Tobacco Use: 4 or less cigar ettes(less than 1/4 pack)/day in last 30 days. Other: states smoke some days. Type: Cigarettes. Previous treatment: Counseling, Nicotine replacement. Sex Male
--- OUTSIDE RECORDS SUMMARY | 2023-10-10 09:47 | XMS_ITS | Continuity of Care Document ---
Author Organization [facility] Address [address] [place] [address]- Care Team Providers Care Theoretical Physics Teacher Name Role Phone Not on Staff, PCP Primary Care Physician Unavail able [facility] Date(s): 05/31/21 - 06/30/21 [facility] [address] [place] [address]- Allergies, Adverse Reactions, Alerts No Known Medication [...] vaccine 23 05/17/89 Recorded 1Admin Note: [facility] [id number] 2Admin Note: VIS GIVEN 09/23/08 hungarian 3Admin Note: 1st in series. [id number] exp 08/15/11 4Admin Note: vis 05/22 5Admin Note: VIS given 6Result Comment: [12/21/2017] JOSÉ MIGUEL MIDDLETON MA OF 05/16/05 7Result Comment: [12/21/2017] JOSÉ MIGUEL MIDDLETON MA OF 05/16/05 8Result Comment: [12/21/2017] JOSÉ MIGUEL MIDDLETON MA OF 05/16/05 9Result Comment: [12/21/2017] copy of immunization flow sheet from [facility] nurse emi estrella[12/21/2017 Uncharted] duplicate notation [...] OF 05/16/05 18Result Comment: [12/21/2017] JOSÉ MIGUEL IMDDLETON MA OF 05/16/05 19Result Comment: [12/21/2017] ADDIELeonor [...] 10:52:56 EDT, Aerosol, Route to Pharmacy Electronically, [id number], [facility] Start Date: 11/06/18 Stop Date: 04/05/19 Status: Ordered lithium 300 mg oral tablet 1 tablet = 300 mg, By Mouth, 2 times a day, # 28 tablet, 0 Refills, Maintenance, 12/16/20 9:23:00 EDT, Tablet, [facility]/pharmacy #[id number], Partial fill upon patient request if the prescription is for a schedule II opioid drug., 180, cm, 12/05/20 9:27:00 EDT,... Start Date: 12/16/20 Stop Date: 12/30/20 Status: Ordered morphine 15 mg oral tablet, immediate release 0.5 tablet = 7.5 mg, By Mouth, Every 4 hours, PRN as needed for pain, # 5 tablet, 0 Refills, Maintenance, 04/24/21 11:05:00 EST, Tablet, [facility]/pharmacy #[id number], Partial fill upon patient request, 180, cm, 12/05/20 9:27:00 EDT, Height, 118.2, kg, 12/05/20... Start Date: 04/24/21 Status: Ordered QUEtiapine 100 mg oral tablet 100 mg, 1, tablet, By Mouth, 2 times a day, # 28 tablet, Refills 0, Tot. Refills 0, Maintenance, 12/16/20 9:23:00 EDT, Route to Pharmacy Electronically, [facility]/pharmacy #[id number], Partial fill upon patient request if the [...]
--- OUTSIDE RECORDS SUMMARY | 2023-10-10 09:47 | XMS_ITS | Continuity of Care Document ---
Author Organization [facility] ter Address [address] [place] [address]- Care Team Providers Care Windows Systems Administrator Name Role Phone Reilly GOODE, Tracy Lorenz Primary Care Physician Encounter [facility] Date(s): 02/12/20 - 02/12/[address] [address]- Discharge Disposition: A-D/C Walkout Attending Physician: Not [...] (PRP-T) vaccine 23 05/17/89 Recorded [facility] [id number] 2Admin Note: VIS GIVEN 09/23/08 french 3Admin Note: 1st in series. [id number] exp 08/15/11 4Admin Note: vis 05/22 5Admin Note: VIS given 6Result Comment: [12/21/2017] JOSÉ MIGUEL MIDDLETON MA OF 05/16/05 7Result Comment: [12/21/2017] JOSÉ MIGUEL MIDDLETON MA OF 05/16/05 8Result Comment: [12/21/2017] JOSÉ MIGUEL MIDDLETON MA OF 05/16/05 9Result Comment: [12/21/2017] copy of immunization flow sheet from [facility] nurse emi estrella[12/21/2017 Uncharted] duplicate [...] MIGUEL MIDDLETONGRISELDA OF 05/16/05 18Result Comment: [12/21/2017] JOSÉ MIGUEL MIDDLETONGRISELDA OF 05/16/05 19Result Comment: [12/21/2017] ADDIELeonor EMIGRISELDA OF 05/16/05 20Result Comment: [12/21/2017] JOSÉ MIGUEL MIDDLETON MA OF 05/16/05 21Result Comment: [12/21/2017] JOSÉ MIGUEL MIDDLETON GRISELDA OF 05/16/05 22Result Comment: [12/21/2017] JOSÉ MIGUEL MIDDLETON GRISELDA OF 05/16/05 23Result Comment: [12/21/2017] JOSÉ MIGUEL MIDDLETON GRISELDA OF 05/16/05 Medications acetaminophen 325 mg oral [...] 10:52:56 EDT, Aerosol, Route to Pharmacy Electronically, [id number], [facility] Start Date: 11/06/18 Stop Date: 04/05/19 [...] 3 Refills, Maintenance, 03/07/19 17:50:00 EST, Tablet, [facility]., 1 tablet By Mouth Daily, 180, cm, [...] 03/07/19 17:50:00 EST, Route to Pharmacy Electronically, [facility]., 180, cm, 03/07/19 17:23:00 EST, Height, 101, [...] 2 Oxygen Saturation [94-100 %] 99 % (02/12/20 3:26 AM) 100 % (02/12/20 3:16 AM) Pulse Rate [55-90 bpm] 98 bpm *H* (02/12/20 3:26 AM) 110 bpm *H* (02/12/20 3:16 AM) Blood Pressure [90-138/55-84 mm Hg] 141/ 93mm Hg *H* (02/12/20 3:26 AM) Respiratory Rate [16-30 br/min] 16 br/mi n (02/12/20 3:26 AM) 20 br/min (02/12/20 3:16 AM) Temperature [96.8-100.4 DegF] 98.2 DegF (02/12/20 3:26 AM) Mode of Delivery (Oxygen) Room air (02/12/20 3:26 AM) Room air (02/12/20 3:16 AM) Blood pressure sites Arm, right (02/12/20 3:26 AM) Temperature Route Oral (02/12/20 3:26 AM) Social History Social History Type Response Tobacco Other: PT STATES SMO KE A PACK A DAY AND WANTS TO QUIT. Type: Cigarettes. Previous treatment: Counseling, Nicotine replacement. Sex Male
--- OUTSIDE RECORDS SUMMARY | 2023-10-10 09:47 | XMS_ITS | Continuity of Care Document ---
Author Organization [facility] Address [address] [place] [address]- Care Team Providers Care Procurement Accountant Name Role Phone Reilly GOODE, Tracy Lorenz Primary Care Physician [facility] Date[facility]s): 11/07/19 - 12/07/19 [facility] [address] [place] [address]- [facility] Attending Physician: Admtr, Ar8 Allergies, [...] vaccine 23 05/17/89 Recorded 1Admin Note: [facility] [id number] 2Admin Note: VIS GIVEN 09/23/08 martiniquais 3Admin Note: 1st in series. [id number] exp 08/15/11 4Admin Note: vis 05/22 5Admin Note: VIS given 6Result Comment: [12/21/2017] JOSÉ MIGUEL MIDLDETON MA OF 05/16/05 7Result Comment: [12/21/2017] JOSÉ [...] 10:52:56 EDT, Aerosol, Route to Pharmacy Electronically, [id number], [facility] Start Date: 11/06/18 Stop [...] 3 Refills, Maintenance, 03/07/19 17:50:00 EST, Tablet, [facility] 1 tablet By Mouth Daily, 180, [...] 03/07/19 17:50:00 EST, Route to Pharmacy Electronically, [facility]., 180, cm, 03/07/19 17:23:00 EST, Height, [...]
--- OUTSIDE RECORDS SUMMARY | 2023-10-10 09:47 | XMS_ITS | Continuity of Care Document ---
Author Organization [facility] Address [address] [place] [address]- Care Team Providers Care Matrix Inspector Name Role Phone Reilly GOODE, Tracy Lorenz Primary Care Physician [facility] Date[facility]s): 03/07/19 - 04/20/19 [facility] [address] [place] [address]- [facility] Attending Physician: Not on Staff, Attending MD Allergies, Adverse Reactions, Alerts Substance Reaction [...] (PRP-T) vaccine 23 05/17/89 Recorded 1Admin Note: [facility] [id number] 2Admin Note: VIS GIVEN 09/23/08 georgian 3Admin Note: 1st in series. [id number] exp 08/15/11 4Admin Note: vis 05/22 5Admin Note: VIS given 6Result Comment: [12/21/2017] JOSÉ MIGUEL MIDDLETON MA OF 05/16/05 7Result Comment: [12/21/2017] JOSÉ MIGUEL MIDDLETON MA OF 05/16/05 8Result Comment: [12/21/2017] JOSÉ MIGUEL MIDDLETON MA OF 05/16/05 9Result Comment: [12/21/2017] copy of immunization flow sheet from [facility] nurse emi estrella[12/21/2017 [...] OF 05/16/05 16Result Comment: [12/21/2017] JOSÉ MIGUEL MDIDLETON MA OF 05/16/05 17Result Comment: [12/21/2017] JOSÉ MIGUEL MIDDLETONGRISELDA OF 05/16/05 18Result Comment: [12/21/2017] ADDIELeonor EMI, MA OF 05/16/05 19Result Comment: [12/21/2017] ADDIELeonor EMIGRISELDA OF 05/16/05 20Result Comment: [12/21/2017] ADDIELeonor EMIGRISELDA OF 05/16/05 21Result Comment: [12/21/2017] ADDIELeonor EMI, MA OF 05/16/05 22Result Comment: [12/21/2017] ADDIELeonor EMIGRISELDA OF 05/16/05 23Result Comment: [12/21/2017] ADDIELeonor MIDDLETON MA OF 05/16/05 Medications acetaminophen 325 [...] 10:52:56 EDT, Aerosol, Route to Pharmacy Electronically, [id number], [facility] Start Date: 11/06/18 Stop Date: 04/05/19 [...] 3 Refills, Maintenance, 03/07/19 17:50:00 EST, Tablet, [facility] 1 tablet By Mouth Daily, 180, cm, [...] 03/07/19 17:50:00 EST, Route to Pharmacy Electronically, [facility] 180, cm, 03/07/19 17:23:00 EST, Height, 101, [...]
--- OUTSIDE RECORDS SUMMARY | 2023-10-10 09:47 | XMS_ITS | Continuity of Care Document ---
Author Organization [facility] ter Address [address] [place] [address]- Care Team Providers Care Broiler Chef Or Cook Name Role Phone Not on Staff, PCP Primary Care Physician Unavail able [facility]counter [facility] Date(s): 01/03/22 - 01/04/[address] [address]- Discharge Disposition: A-D/C Walkout Attending Physician: Not [...] (PRP-T) vaccine 23 05/17/89 Recorded 1Admin Note: [facility] [id number] 2Admin Note: VIS GIVEN 09/23/08 afghan 3Admin Note: 1st in series. [id number] exp 08/15/11 4Admin Note: vis 05/22 5Admin Note: VIS given 6Result Comment: [12/21/2017] JOSÉ MIGUEL MIDDLETON MA OF 05/16/05 7Result Comment: [12/21/2017] JOSÉ MIGUEL MIDDLETON MA OF 05/16/05 8Result Comment: [12/21/2017] JOSÉ MIGUEL MIDDLETON MA OF 05/16/05 9Result Comment: [12/21/2017] copy of immunization flow sheet from [facility] nurse conrado estrella[12/21/2017 Uncharted] duplicate notation [...] 10:52:56 EDT, Aerosol, Route to Pharmacy Electronically, [id number], [facility]. Start Date: 11/06/18 Stop Date: 04/05/19 [...] Maintenance, 12/16/20 9:23:00 EDT, Tablet, [facility]/pharmacy #[id number], Partial fill upon patient [...] Refills, Maintenance, 04/24/21 11:05:00 EST, Tablet, [facility]/pharmacy #[id number], Partial fill upon patient [...] EDT, Route to Pharmacy Electronically, [facility]/pharmacy #[id number], Partial fill upon patient [...] Exam Date Time Procedure Performing Provider Status 01/04/22 1:01 AM Chest 2 Views Frontal and Lat Priscilla Winter; Lorena (Verified) Notes: (Chest 2 Views Frontal and Lat) Reason For Exam: Chest Pain;Other: RESULT: Chest 2 Views Frontal and Lat Chest 2 Views Frontal and Lat Hx of Present Illness: body pain; Reason: Other:; Chest Pain; Clinical Question(s): Other: COMPARISON: 08/03/2021 FINDINGS: LINES AND TUBES: None. LUNGS AND PLEURA: Low lung volumes with mild basilar atelectasis. Lungs are otherwise clear with no consolidation. No pleural effusion. No pneumothorax. HEART, MEDIASTINUM AND LETICIA: Heart is normal in size. Normal mediastinal and hilar contour. BONES AND SOFT TISSUES: No acute abnormality. IMPRESSION: No acute abnormality. WSN: [id number] Ordering Physician: Cody Saunders Dictated By: Abdias Mitchell MD Dictated Date/Time: 01/04/22 8:06 am Reviewed By: Abdias Mitchell MD Signed By: Abdias Mitchell MD Signed Date/Time: 01/04/22 8:06 am Transcribed By: LJ Transcribed Date/Time: 01/04/22 8:05 am Vital Signs Most recent to oldest [Reference Range]: 1 2 3 Height 180 cm (01/04/22 2:07 AM) 180 cm (01/03/22 10:48 PM) 180 cm (01/03/22 10:45 PM) Weight 127.7 kg (01/04/22 2:07 AM) 127.7 kg (01/03/22 10:48 PM) 127.7 kg (01/03/22 10:45 PM) Oxygen Saturation [94-100 %] 99 % (01/04/22 5:49 AM) 99 % (01/04/22 3:21 AM) 98 % (01/04/22 2:07 AM) Pulse Rate [55-90 bpm] 109 bpm *H* (01/04/22 5:49 AM) 116 bpm *H* (01/04/22 3:21 AM) 116 bpm *H* (01/04/22 2:07 AM) Body Mass Index [18.5-24.99 kg/m2] 39.41 kg/m2 *>HHI* (01/04/22 2:07 AM) 39.41 kg/m2 *>HHI* (01/03/22 10:45 PM) Blood Pressure [90-138/55-84 mm Hg] 143/95mm Hg *H* (01/04/22 5:49 AM) 136/93mm Hg (01/04/22 3:21 AM) 143/86mm Hg *H* (01/04/22 2:07 AM) Respiratory Rate [16-30 br/min] 18 br/min (01/04/22 2:07 AM) 22 br/min (01/03/22 10:48 PM) 22 br/min (01/03/22 10:45 PM) Temperature [96.8-100.4 DegF] 98.0 DegF (01/04/22 5:49 AM) 98.2 DegF (01/04/22 3:21 AM) 97.8 DegF (01/04/22 2:07 AM) Mode of Delivery (Oxygen) Room air (01/04/22 5:49 AM) Room air (01/04/22 3:21 AM) Room air (01/04/22 2:07 AM) Blood pressure sites Arm, left (01/04/22 5:49 AM) Arm, right (01/04/22 3:21 AM) Arm, left (01/04/22 2:07 AM) Temperature Route Oral (01/04/22 5:49 AM) Oral (01/04/22 3:21 AM) Oral (01/04/22 2:07 AM) Dry Weight 127.7 kg (01/04/22 2:07 AM) 127.7 kg (01/03/22 10:48 PM) 127.7 kg (01/03/22 10:45 PM) Weight Obtained Via Standing scale (01/03/22 10:45 PM) Dry Weight Obtained Via Standing scale (01/03/22 10:45 PM) Social History Social History Type Response Tobacco Use: 4 or less cigar ettes(less than 1/4 pack)/day in last 30 days. Other: states smoke some days. Type: Cigarettes. Previous treatment: Counseling, Nicotine replacement. Sex Male EKG study * Event Display: EKG Authored Date: * Event Display: ECG 12-Lead Authored Date: Please click on pdf link to open report * Event Display: ECG 12-Lead Authored Date: Ventricular Rate: 111 BPM Atrial Rate: 111 BPM P-R Interval: 130 ms QRS Duration: 80 ms Q-T Interval: 344 ms QTC Calculation(Bazett): 467 ms P [place]: 59 degrees R [place]: -19 degrees T [place]: 13 degrees Sinus tachycardia with occasional Premature ventricular complexes Otherwise normal ECG When compared with ECG of 31-OCT-2021 08:23, Premature ventricular complexes are now Present Confirmed by DANA GRULLON ([id number]) on 01/04/2022 11:59:44 AM [place]: DANA GRULLON Note * BHSPowerscribe , CIS S: TRANSCRIBE Abdias Mitchell MD S: VERIFY Event Display: Result: Authored Date: Chest 2 Views Frontal and Lat Hx of Present Illness: body pain; Reason: Other:; Chest Pain; Clinical Question(s): Other: COMPARISON: 08/03/2021 FINDINGS: LINES AND TUBES: None. LUNGS AND PLEURA: Low lung volumes with mild basilar atelectasis. Lungs are otherwise clear with no consolidation. No pleural effusion. No pneumothorax. HEART, MEDIASTINUM AND LETICIA: Heart is normal in size. Normal mediastinal and hilar contour. BONES AND SOFT TISSUES: No acute abnormality. IMPRESSION: No acute abnormality. WSN: [id number] Ordering Physician: Cody Saunders Dictated By: Abdias Mitchell MD Dictated Date/Time: 01/04/22 8:06 am Reviewed By: Abdias Mitchell MD Signed By: Abdias Mitchell MD Signed Date/Time: 01/04/22 8:06 am Transcribed By: LJ Transcribed Date/Time: 01/04/22 8:05 am Patient Care team information Care Team Personnel Name: Not on Staff, PCP Position: S Physician (General Medicine) Member Role: PCP Care Team Related Persons Name: ALFRED SEXTON Address: [place] [address] Name: PT STATES, NO ONE
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
--- OUTSIDE RECORDS SUMMARY | 2023-10-10 09:47 | XMS_ITS | Continuity of Care Document ---
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 [id number] exp 08/15/11 4Admin Note: vis 05/22 5Admin [...] MIDDLETONGRISELDA OF 05/16/05 20Result Comment: [12/21/2017] ADDIELeonor EMIGRISELDA [...] 10:52:56 EDT, Aerosol, Route to Pharmacy Electronically, [id number], [facility] Start Date: 11/06/18 Stop [...] Exam Date Time Procedure Performing Provider Status 02/22/19 9:25 PM Chest 2 Views Frontal and Lat Rosanne Duckworth; Lorena (Verified) Notes: (Chest 2 Views Frontal and Lat) Reason For Exam: Shortness of Breath, Fever;Other: RESULT: Chest 2 Views Frontal and Lat Chest 2 Views Frontal and Lat Reason: Other:; Shortness of Breath, Fever; Clinical Question(s): Pneumonia; Hx of Present Illness:Pt report hearing voices telling him to kill himself, He has been hearing voice but today its been worse. COMPARISON: None. FINDINGS: LINES AND TUBES: None. LUNGS AND PLEURA: Clear lungs. Normal pulmonary vascularity. No pleural effusion. No pneumothorax. HEART, MEDIASTINUM AND LETICIA: Heart is normal in size. Normal mediastinal and hilar contour. BONES AND SOFT TISSUES: No acute abnormality. IMPRESSION: No acute abnormality. WSN: [id number] Dictated By: Bobby Cormier MD Dictated Date/Time: 02/22/19 9:30 pm Reviewed By: Bobby Cormier MD Signed By: Bobby Cormier MD Signed Date/Time: 02/22/19 9:30 pm Transcribed By: LJ Transcribed Date/Time: 02/22/19 9:29 pm Vital Signs Most recent to oldest [Reference Range]: 1 2 3 Oxygen Saturation [94-100 %] 100 % (02/26/19 2:40 AM) 99 % (02/25/19 6:11 PM) 97 % (02/25/19 6:55 AM) Pulse Rate [55-90 bpm] 102 bpm *H* (02/26/19 2:40 AM) 84 bpm (02/25/19 6:11 PM) 73 bpm (02/25/19 6:55 AM) Blood Pressure [90-138/55-84 mm Hg] 108/70mm Hg (02/26/19 2:40 AM) 112/76mm Hg (02/25/19 6:11 PM) 94/58mm Hg (02/25/19 6:55 AM) Respiratory Rate [16-30 br/min] 17 br/min (02/26/19 1:37 PM) 16 br/min (02/26/19 2:40 AM) 16 br/min (02/25/19 6:11 PM) Temperature [96.8-100.4 DegF] 97.3 DegF (02/25/19 6:55 AM) 97.3 DegF (02/24/19 3:39 PM) 97.3 DegF (02/23/19 10:19 PM) Mode of Delivery (Oxygen) Room air (02/26/19 2:40 AM) Room air (02/25/19 6:11 PM) Room air (02/25/19 6:55 AM) Blood pressure sites Arm, right (02/26/19 2:40 AM) Arm, left (02/25/19 6:11 PM) Arm, left (02/25/19 6:55 AM) Temperature Route Oral (02/25/19 6:55 AM) Oral (02/24/19 3:39 PM) Oral (02/23/19 10:19 PM) Social History Social History Type Response Tobacco Other: PT STATES SMO KE A PACK A DAY AND WANTS TO QUIT. Type: Cigarettes. Previous treatment: Counseling, Nicotine replacement. Sex Male
--- OUTSIDE RECORDS SUMMARY | 2023-10-10 09:48 | XMS_ITS | Continuity of Care Document ---
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 [id number] exp 08/15/11 4Admin Note: vis 05/22 5Admin [...] 10:52:56 EDT, Aerosol, Route to Pharmacy Electronically, [id number], [facility] Start Date: 11/06/18 Stop Date: 04/05/19 [...] 3 Refills, Maintenance, 03/07/19 17:50:00 EST, Tablet, [facility] 1 tablet By Mouth Daily, 180, [...] 03/07/19 17:50:00 EST, Route to Pharmacy Electronically, [facility]., 180, cm, 03/07/19 17:23:00 EST, Height, [...]
--- OUTSIDE RECORDS SUMMARY | 2023-10-10 09:48 | XMS_ITS | Patient Health Record ---
Author Organization [facility] Address [address] [place], [place] [address] Care Team Providers Care Wire Steward Name Role Phone [facility] Primary Care Provider Un available Calista Jeffers Unavailable [phone] REASON FOR REFERRAL No Information SOCIAL HISTORY Sex Assigned At : Social History Observation Description Sex Assigned At Unknown PLAN OF TREATMENT No Information Insurance Providers Payer Name Payer Address Payer Phone Subscriber Number Group Number Insured Name Patient Relationship to Insured Coverage Start Date Coverage End Date [employer] [address] [place] [id number] Danielle Villar Self - patient is the insured
[2023-10-10 09:54] VITALS: BP 124/88; PULSE 147; O2SAT 97; BMI 47.4
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
== END 2023-10-10 10:42 | disposition home or self-care (01) ==
LOC: HO.HMGH 09:44
PROVIDERS: PCP Internal Medicine
DX: S16.1XXA Strain of muscle, fascia and tendon at neck level, initial encounter (principal); V89.2XXA Person injured in unspecified motor-vehicle accident, traffic, initial encounter
CPT/HCPCS: 99214

== ENCOUNTER 2023-11-24 14:18 | Emergency (ER) | payer OTHER, SELFPAY ==
[2023-11-24 14:26] VITALS: BP 151/76; PULSE 110; RESP 18; TEMP 37; O2SAT 100; BMI 50.2
--- NOTE | 2023-11-24 14:28 | ED_ITS ---
HPI - General Adult General Chief complaint: Abdominal Pain Stated complaint: Nausea Time Seen by Provider: 11/24/23 20:04 History of Present Illness ED Provider: Lindsay HERNANDEZ narrative: The patient is a 38-year-old male with a history of schizoaffective disorder. He also has a fairly regular heavy alcohol user. He says he usually drinks about 10 nips per day. The patient is an extremely vague historian. at triage he had reportedly stated that he has had abdominal symptoms that had been bothering him for a few weeks but more severely over the last few days. Symptoms described triage included nausea, vomiting, diarrhea, and generalized abdominal discomfort. When I spoke to the patient however he was Very vague and my impression was that his chief complaint was nausea and general feeling of not being well together with some diffuse body aches. He really had trouble giving any timing to his symptoms and described feeling unwell for a long time. I was unable to get more specific answers to questions. He denies suicidality. He says that he did not think that he was here because of any problems related to alcohol although he told me he takes 10 nips per day. His nurse told me that he takes 10-20 nips per day. Related Data Home Medications ?Medication ?Instructions ?Recorded ?Confirmed ziprasidone HCl 40 mg capsule mg PO DAILY 10/10/23 10/10/23 Previous Rx's ?Medication ?Instructions ?Recorded albuterol sulfate 90 mcg/actuation 2 puff inhalation RQ4H PRN 09/13/23 aerosol inhaler (Ventolin HFA) Shortness Of Breath/Wheezing 30 days #8.5 grams chlorpromazine 50 mg tablet 50 mg PO BEDTIME 30 days #30 tabs 09/13/23 clonidine HCl 0.1 mg tablet 0.1 mg PO BID 30 days #60 tabs 09/13/23 dextroamphetamine-amphetamine 30 1 tab PO DAILY 30 days #30 tabs 09/13/23 mg tablet furosemide 40 mg tablet 40 mg PO DAILY 30 days #30 tabs 09/13/23 hydroxyzine pamoate 50 mg capsule 50 mg PO TID 30 days #90 caps 09/13/23 lorazepam 1 mg tablet 1 mg PO DAILY Anxiety 30 days #30 09/13/23 tabs trazodone 50 mg tablet 50 mg PO BEDTIME 30 days #30 tabs 09/13/23 Hip Kit with long handle #1 ea 09/21/23 Shoe horn #1 ea 09/21/23 Sock aid #1 ea 09/21/23 hand held shower head #1 ea 09/21/23 cyclobenzaprine 5 mg tablet 5 mg PO BEDTIME #20 tabs 10/10/23 semaglutide 0.25 mg or 0.5 mg (2 0.5 mg (0.736 mL) subcut QWEEK 4 11/22/23 mg/3 mL) subcutaneous pen injector weeks #3 mL (Ozempic) Allergies Allergy/AdvReac Type Severity Reaction Status Date / Time cat dander Allergy Severe Itchy Eyes Verified 11/24/23 14:30 No Known Drug Allergies Allergy Severe none Verified 11/24/23 14:30 Seasonal Allergies Allergy Intermediate snee Verified 11/24/23 14:30 pineapple Allergy Itching Verified 11/24/23 14:30 Review of Systems 2 Review of Systems: Yes all other systems are reviewed and are negative [facility] Past Medical History Medical History GERD without esophagitis Schizoaffective disorder Dyspnea Obesity Vasectomy evaluation Abdominal pain Chronic constipation Obesity (BMI 30-39.9) Weight gain Morbid obesity with BMI of 40.0-44.9, adult Annual physical exam Obese Screening for diabetes mellitus (DM) Abdominal pain Abdominal swelling Upper respiratory infection with cough and congestion Vasectomy evaluation Screening for STD (sexually transmitted disease) Screening for hypercholesterolemia COVID-19 Physical exam COVID-19 Schizoaffective disorder, bipolar type Smoker Vitamin D deficiency Pure hypercholesterolemia Elevated LFTs Alcoholism Asthma Surgical History No significant past surgical history Family History Family History Mother No problems noted. Father No problems noted. Social History Social History Household Members: None Household Members Other:: none Housing: Apartment Do you presently have visiting nurse or other home services: No Alcohol intake: current Alcohol intake frequency: 3 or more drinks per day Alcohol type: beer and hard liquor Patient Tobacco Use Status: Current everyday Tobacco user Tobacco use type: Cigarette Cigarette Packs Per Day: 1 Cigarettes Per Day: 20.0 e-Cigarette/Vaping Use: Former Use Second Hand Smoke Exposure: No Substance Use Type: Marijuana Advance Directives: No Advance Directives Information Provided: No Do you have a plan to hurt others: No Plan service: No Current occupational status: disabled Sexual orientation: Don't Know Cognitive needs: No Hearing needs: No Vision needs: No Physical Exam ED Vital Signs: Vital Signs - 24 hr 11/24/23 14:26 11/24/23 20:09 11/24/23 22:18 Temperature 98.6 F 98.6 F 98.1 F Pulse Rate 110 H 108 H 107 H Respiratory Rate 18 16 16 Blood Pressure 151/76 H 155/98 H 154/96 H Pulse Oximetry 100 97 97 Oxygen Delivery Method Room Air Room Air Room Air 11/24/23 22:33 Temperature 98.1 F Pulse Rate 100 Respiratory Rate 18 Blood Pressure 147/82 H Pulse Oximetry 94 Oxygen Delivery Method Room Air BMI result Body Mass Index 50.2 Const Other: The patient is a large ( BMI 50) 38-year-old male who was awake and alert. He did not seem in distress. He does not seem obviously acutely ill. HENMT Other: Face is symmetrical. Mucous membranes moist. Eyes Other: Pupils are round equal, conjunctivae clear, extraocular movements intact Neck Other: moving his neck easily Resp Effort & Inspection: normal respiratory effort Auscultation: clear to auscultation bilaterally Cardio Rate: regular rate Rhythm: regular rhythm Heart sounds: S1 normal heart sound present and S2 normal heart sound present GI Other: the abdomen was soft. I did not feel he had any significant tenderness in any quadrant. Skin Other: Skin was dry and unremarkable Neuro Other: the patient was awake and alert. He was oriented and appropriate. He was an extremely vague historian but did not seem to have any confusion or sign of mental status changes. Cranial nerves are grossly intact. He moves his extremities normally and appropriately. Extrem Other: No peripheral edema Course Course Course Narrative: This is an RME performed by Bernardo Baltazar CNP: Additional HPI, ROS, PE not included below will be deferred to primary provider. Patient is a 38-year-old male who presents to the emergency department for evaluation of Nausea vomiting and diarrhea diffuse abdominal pain, that is constant for the past few weeks but reports significantly worse the past couple of days. Feeling fatigued, associated dizziness. Denies symptoms. Denies hematochezia or melena. Plan: Serum labs, urinalysis, viral serologies Medications Administered Discontinued Medications Generic Name Dose Route Start Last Admin Trade Name Mahogany PRN Reason Stop Dose Admin Droperidol 1.25 mg 11/24/23 20:25 11/24/23 20:55 Droperidol 5 Mg/2 Ml Vial IVPUSH 11/24/23 20:26 1.25 mg ONCE ONE Administration Famotidine 20 mg 11/24/23 20:25 11/24/23 20:55 Famotidine/Pf 20 Mg/2 Ml Vial IVPUSH 11/24/23 20:26 20 mg ONCE ONE Administration Sodium Chloride 1,000 mls @ 999 mls/hr 11/24/23 20:30 11/24/23 22:32 Ns IV 11/24/23 21:30 Infused .Q1H1M EDER Infusion Lorazepam 2 mg 11/24/23 22:39 11/24/23 22:43 Lorazepam 1 Mg Tablet PO 11/24/23 22:40 2 mg ONCE ONE Administration Medical Decision Making Medical Decision Making [facility] Narrative: patient is a 38-year-old male with history of chronic mental illness the who I believe is also an alcoholic who presents for evaluation of abdominal symptoms. Unfortunately the patient is an extremely vague historian so that it was really hard to have a good understanding of his symptoms. His abdominal exam seemed benign. Given his history of alcohol use I had concerns he might have pancreatitis or alcoholic ketoacidosis. His lipase was normal. His metabolic panel was unremarkable. No sign of acidosis or anion gap. His white count and differential were unremarkable. His CRP is normal. Hemoglobin is stable. His urinalysis shows trace ketones. Ethanol was 41. The patient was treated with IV fluids, droperidol, and for monitoring. He fell asleep for a few hours. He said that he felt better. he was not showing obvious signs of significant alcohol withdrawal although he had some mild tachycardia at times. His clinical exam does not suggest an acute surgical Abdominal process. He did not seem particularly interested in going to detox. He says he has previously done detox at [facility] in [place]. No suicidality or homicidality or other obvious indication for a crisis team evaluation. Ultimately the patient seemed content to take a taxi back to his apartment in [place]. He was given 2 mg of oral lorazepam at the time of discharge. He should follow up with his regular doctor. He should return if worse. He was given information for local detox facilities. He was also given the contact information for the [place] addiction medicine clinic. Lab Data 11/24/23 14:44 11/24/23 14:44 Labs: Lab Results 11/24/23 11/24/23 Range/Units 14:44 20:07 WBC 4.3 L (4.8-10.8) X10*3/uL RBC 5.28 (4.60-5.80) X10*6/uL Hgb 14.8 (14.0-18.0) g/dl Hct 43.1 (42.0-52.0) % MCV 81.6 (80.0-98.0) fL MCH 28.0 (27.0-33.0) pg MCHC 34.3 (31.0-36.0) g/dl RDW 14.6 (11.0-16.0) % Plt Count 294 (160-400) X10*3/uL MPV 8.8 L (9.4-12.4) fL Immature Gran % (Auto) 0.2 (0.0-0.4) % Neut % (Auto) 46.5 (45-73) % Lymph % (Auto) 42.3 H (20-40) % Iroquois % (Auto) 9.4 (2-11) % Eos % (Auto) 0.9 (0-4) % Baso % (Auto) 0.7 (0-2) % Lymph # (Auto) 1.8 (1.2-4.9) X10*3/uL [place]roquois # (Auto) 0.4 (0.1-1.2) X10*3/uL Eos # (Auto) 0.0 (0.0-0.4) X10*3/uL Baso # (Auto) 0.0 (0.0-0.2) X10*3/uL Abs Immat Gran (auto) 0.01 (0.00-0.03) X10*3/uL Absolute Neuts (auto) 2.0 (2.0-8.3) x10*3/uL Absolute Nucleated RBC 0.000 (0.0-0.012) X10*3/uL Nucleated RBC % (auto) 0.0 (0.0-0.2) /100WBC Sodium 141 (135-145) mmol/L Potassium 3.4 (3.3-5.1) mmol/L Chloride 107 (96-108) mmol/L Carbon Dioxide 22 (22-29) mmol/L Anion Gap 15 (12-20) BUN 10 (9-16) mg/dL Creatinine 0.85 (0.5-1.4) mg/dL Estim Creat Clear Calc 187.7 Estimated GFR > 60 POC Glucose 98 (60-115) mg/dL Random Glucose 105 (60-115) mg/dL Calcium 8.8 D (8.4-10.2) mg/dL Total Bilirubin 0.8 (0.0-1.0) mg/dL AST 80 H (5-37) U/L ALT 63 H (0-40) U/L Alkaline Phosphatase 69 (39-117) U/L C-Reactive Protein 0.13 (< or = 0.50) mg/dL Total Protein 7.2 (6.5-8.0) g/dL Albumin 3.9 (3.5-5.0) g/dL Lipase 50 (8-78) U/L Ethyl Alcohol 41 mg/dL Influenza Type A (PCR) NEGATIVE (Negative) Influenza Type B (PCR) NEGATIVE (Negative) RSV RNA Qual (PCR) NEGATIVE (Negative) SARS-CoV-2 RNA (RT-PCR) NEGATIVE (Negative) Discharge Plan Discharge Clinical Impression: Nausea Patient Disposition: Home, Self-Care Additional Instructions: Your testing in the emergency room today is reassuring from the point of view of any acutely dangerous process. Please continue your regular medications. Please consider alcohol detox. You have been given some information about detox facilities in [facility]. It might also be useful for you to contact the addiction Medicine Clinic here at [facility]. You have been given the contact information for the addiction Medicine Clinic and I would recommend calling them on Monday (Monday is a holiday). Please also follow up with your regular doctor. If at any point you feel significantly worse please return to the emergency department. Prescriptions: No Action (DME) hand held shower head See Rx Instructions .Route .MEDSUPPLY Qty: 1 0RF Rx Instructions: As directed (DME) Hip Kit with long handle See Rx Instructions .Route .MEDSUPPLY Qty: 1 0RF Rx Instructions: As directed (DME) Shoe horn See Rx Instructions .Route .MEDSUPPLY Qty: 1 0RF Rx Instructions: As directed (DME) Sock aid See Rx Instructions .Route .MEDSUPPLY Qty: 1 0RF Rx Instructions: As directed Ozempic 0.25 mg or 0.5 mg (2 mg/3 mL) pen injector 0.5 mg subcut QWEEK 28 Days Qty: 3 0RF chlorpromazine 50 mg tablet 50 mg PO BEDTIME 30 Days Qty: 30 0RF lorazepam 1 mg Tablet 1 mg PO DAILY 30 Days Qty: 30 0RF furosemide 40 mg Tablet 40 mg PO DAILY 30 Days Qty: 30 0RF Protocol: Hold for SBP< HOLD for SBP < : 90 albuterol sulfate [Ventolin HFA] 90 mcg/actuation Hfa Aerosol Inhaler 2 puff inhalation RQ4H PRN (Reason: Shortness Of Breath/Wheezing) 30 Days Qty: 8.5 0RF clonidine HCl 0.1 mg Tablet 0.1 mg PO BID 30 Days Qty: 60 0RF trazodone 50 mg tablet 50 mg PO BEDTIME 30 Days Qty: 30 0RF hydroxyzine pamoate 50 mg capsule 50 mg PO TID 30 Days Qty: 90 0RF dextroamphetamine-amphetamine 30 mg tablet 1 tab PO DAILY 30 Days Qty: 30 0RF ziprasidone HCl 40 mg capsule PO DAILY cyclobenzaprine 5 mg tablet 5 mg PO BEDTIME Qty: 20 0RF Referrals: Livan Rosales MD [Primary Care Provider] - (Nausea, alcohol use) Zenia Martinez CNP [Nurse Practitioner] - (10-20 nips per day) Interventions: ED Discharge Assessment Last Done: 11/24/23 22:33 Discharge Date/Time: 11/24/23 22:49 Print Language: Faroese
[2023-11-24 14:53] LABS: MANUAL DIFF FLAG NO
[2023-11-24 14:57] LABS: Basophils Percent Auto 0.7 % (0-2); Eosinophils Percent Auto 0.9 % (0-4); Hematocrit 43.1 % (42.0-52.0); Hemoglobin 14.8 g/dl (14.0-18.0); Imm Gran Abs Auto 0.01 X10*3/uL (0.00-0.03); Imm Gran Pct Auto 0.2 % (0.0-0.4); Lymphocytes Absolute Auto 1.8 X10*3/uL (1.2-4.9); Lymphocytes Percent Auto 42.3 % (20-40); Mean Corpuscular HGB Conc 34.3 g/dl (31.0-36.0); Mean Corpuscular Volume 81.6 fL (80.0-98.0); Mean Platelet Volume 8.8 fL (9.4-12.4); Monocytes Absolute Auto 0.4 X10*3/uL (0.1-1.2); Monocytes Percent Auto 9.4 % (2-11); Neutrophils Percent Auto 46.5 % (45-73); Platelet Count 294 X10*3/uL (160-400); Red Blood Count 5.28 X10*6/uL (4.60-5.80); Red Cell Distribution Width 14.6 % (11.0-16.0); White Blood Count 4.3 X10*3/uL (4.8-10.8)
[2023-11-24 15:18] LABS: Alanine Aminotransferase 63 U/L (0-40); Albumin Level 3.9 g/dL (3.5-5.0); Alkaline Phosphatase 69 U/L (39-117); Anion Gap 15 (12-20); Aspartate Amino Transferase 80 U/L (5-37); Bilirubin Total 0.8 mg/dL (0.0-1.0); Blood Urea Nitrogen 10 mg/dL (9-16); Calcium 8.8 mg/dL (8.4-10.2); Carbon Dioxide 22 mmol/L (22-29); Chloride 107 mmol/L (96-108); Creatinine Clr Calc Pharmacy 187.7; Estimated Glomerular Filt Rate > 60; Glucose Random 105 mg/dL (60-115); Lipase 50 U/L (8-78); Potassium 3.4 mmol/L (3.3-5.1); Sodium 141 mmol/L (135-145); Total Protein 7.2 g/dL (6.5-8.0)
[2023-11-24 16:09] LABS: Influenza A PCR NEGATIVE (Negative); Influenza B PCR NEGATIVE (Negative); Resp Syncy Virus RNA Qual PCR NEGATIVE (Negative); SARS COV2 PCR INHOUSE NEGATIVE (Negative)
[2023-11-24 20:09] VITALS: BP 155/98; PULSE 108; RESP 16; TEMP 37; O2SAT 97
--- NOTE | 2023-11-24 20:11 | PC.NURSE ---
patient reports heavy ETOH use of 10-15 nips of whiskey daily until today states he has had nothing to drink. Patient reports drinking has been ongoing for months.
[2023-11-24 20:12] LABS: Glucose, Whole Blood 98 mg/dL (60-115)
--- NOTE | 2023-11-24 20:26 | ECG_ITS ---
Test Reason : ABDOMINAL PAIN Blood Pressure : / mmHG Vent. Rate : 109 BPM Atrial Rate : 109 BPM P-R Int : 140 ms QRS Dur : 082 ms QT Int : 356 ms P-R-T Axes : 066 -12 019 degrees QTc Int : 479 ms Sinus tachycardia Otherwise normal ECG When compared with ECG of 07-SEP-2023 16:48, No significant change was found Referred By: Chas Montoya Electronically Signed By:GIO TRIPATHI MD
--- OUTSIDE RECORDS SUMMARY | 2023-11-24 20:34 | XMS_ITS | Patient Health Record ---
Author Organization [facility] Address [address], [place] [id number] Care Team Providers Care Cylinder Steamer Name Role Phone [facility] Primary Care Provider Un available Calista Jeffers Unavailable REASON FOR REFERRAL No Information SOCIAL HISTORY Sex Assigned At : Social History Observation Description Sex Assigned At Unknown PLAN OF TREATMENT No Information Insurance Providers Payer Name Payer Address Payer Phone Subscriber Number Group Number Insured Name Patient Relationship to Insured Coverage Start Date Coverage End Date [employer] [address] [place] [id number] Danielle Villar Self - patient is the insured
[2023-11-24 20:44] LABS: C Reactive Protein 0.13 mg/dL (< or = 0.50); Ethanol 41 mg/dL
[2023-11-24] MEDS: Famotidine/PF 20 MG/2 ML VIAL IVPUSH (20:55)
[2023-11-24] MEDS: droPERidol 5 MG/2 ML VIAL 1.25 MG IVPUSH (20:55)
[2023-11-24] MEDS: 0.9 % Sodium Chloride 1,000 ML 999 ML IV (20:56)
[2023-11-24 22:18] VITALS: BP 154/96; PULSE 107; RESP 16; TEMP 36.7; O2SAT 97
--- NOTE | 2023-11-24 22:27 | PC.NURSE ---
patient reports feeling better after medication administration. pt resting again comfortably on stretcher without any further complaints or concerns.
[2023-11-24 22:33] VITALS: BP 147/82; PULSE 100; RESP 18; TEMP 36.7; O2SAT 94
[2023-11-24] MEDS: LORazepam 1 MG TABLET 2 MG PO (22:43)
== END 2023-11-24 22:49 | disposition home or self-care (01) ==
PROVIDERS: Nurse Practitioner Family; Emergency Provider Emergency Medicine; PCP Internal Medicine
DX: R11.0 Nausea (principal); E78.00 Pure hypercholesterolemia, unspecified; E11.9 Type 2 diabetes mellitus without complications; F10.20 Alcohol dependence, uncomplicated; Y90.2 Blood alcohol level of 40-59 mg/100 ml; F17.210 Nicotine dependence, cigarettes, uncomplicated; F12.90 Cannabis use, unspecified, uncomplicated; Z79.899 Other long term (current) drug therapy; Z03.818 Encounter for observation for suspected exposure to other biological agents ruled out; J45.909 Unspecified asthma, uncomplicated
CPT/HCPCS: 0241U; 80053; 80307; 82947; 83690; 85025; 86140; 93005; 96361; 96374; 96375; 99284; J1790

== ENCOUNTER → 2023-11-24 20:26 | Outpatient (BNV) | payer OTHER, SELFPAY | PROVIDERS: Emergency Provider Emergency Medicine; PCP Internal Medicine; Visit Provider Internal Medicine Cardiovascular Disease | DX: R00.0 Tachycardia, unspecified (principal) | CPT/HCPCS: 93010 ==

== ENCOUNTER 2023-12-13 12:52 | Outpatient (AMB) | payer OTHER, SELFPAY ==
[2023-12-13 12:56] VITALS: BP 136/84; PULSE 105; O2SAT 96; BMI 46.8
--- NOTE | 2023-12-13 12:56 | MHC.PC.OV ---
Vital Signs 12/13/23 12:56 Height 5 ft 11 in Weight 335 lb 6 oz BMI 46.8 BP 136/84 Blood Pressure Location Lt brachial Position Sitting Pulse 105 H Pulse Source Pulse Oximeter Pulse Oximetry (%) 96 Oxygen Delivery Method Room Air Intake Visit Reasons: Body Pain Plate Embosser Required: No Accompanied by: Self / Same As Patient Allergies cat dander Allergy (Severe, Verified 12/13/23 13:27) Itchy Eyes No Known Drug Allergies Allergy (Severe, Verified 12/13/23 13:27) none Seasonal Allergies Allergy (Intermediate, Verified 12/13/23 13:27) snee pineapple Allergy (Verified 12/13/23 13:27) Itching Medication List - Last Reconciled 12/13/23 by Livan Rosales MD albuterol sulfate 90 mcg/actuation (Ventolin HFA) 2 puffs inhalation RQ4H PRN 30 days chlorpromazine 50 mg PO BEDTIME 30 days clonidine HCl 0.1 mg PO BID 30 days cyclobenzaprine 5 mg PO BEDTIME dextroamphetamine-amphetamine 30 mg 1 tab PO DAILY 30 days furosemide 40 mg See Protocol PO DAILY 30 days [hand held shower head As directed] [Hip Kit with long handle As directed] hydroxyzine pamoate 50 mg PO TID 30 days lorazepam 1 mg PO DAILY 30 days semaglutide (Ozempic) 0.5 mg (0.736 mL) subcut QWEEK 4 weeks [Shoe horn As directed] [Sock aid As directed] trazodone 50 mg PO BEDTIME 30 days ziprasidone HCl mg PO DAILY Tobacco use date assessed: 12/13/23 Dental Screening Dental Screen Date: 12/13/23 Did you have a dental visit in the last 12 months?: Yes Did you have a dental problem in the last 6 months where you did not have access to dental care?: No Was dental information given to patient?: Patient has dentist HPI Body Pain HPI Details Patient comes in today complaining of diffuse pain all over , which is not new as these have been going on for months now He relates (+) epigastric pain as well as occasional nausea; denies any vomiting Patient continues to drink alcohol regularly - reportedly takes about 10 to 20 nips a day He denies any headaches or dizziness Denies any exertional chest pains, no increased SOB No change in bowel habits noted He apparently went to the ER with similar complaints of abdominal pain about 3 weeks ago and had some labs done at the ER, which I will go over with him in detail during his visit today [facility] Medical History (Updated 12/17/23 @ 21:52 by Livan Rosales MD) Abdominal pain GERD without esophagitis Schizoaffective disorder Dyspnea Obesity Vasectomy evaluation Chronic constipation Obesity (BMI 30-39.9) Weight gain Morbid obesity with BMI of 40.0-44.9, adult Annual physical exam Obese Screening for diabetes mellitus (DM) Abdominal pain Abdominal swelling Upper respiratory infection with cough and congestion Vasectomy evaluation Screening for STD (sexually transmitted disease) Screening for hypercholesterolemia COVID-19 Physical exam COVID-19 Schizoaffective disorder, bipolar type Smoker Vitamin D deficiency Pure hypercholesterolemia Elevated LFTs Alcoholism Asthma Surgical History No significant past surgical history Family History Mother No problems noted. Father No problems noted. Social History Household Members: None Household Members Other:: none Housing: Apartment Do you presently have visiting nurse or other home services: No Alcohol intake: current Alcohol intake frequency: 3 or more drinks per day Alcohol type: beer and hard liquor Patient Tobacco Use Status: Current everyday Tobacco user Tobacco use type: Cigarette Cigarette Packs Per Day: 1 Cigarettes Per Day: 20.0 e-Cigarette/Vaping Use: Former Use Second Hand Smoke Exposure: No Substance Use Type: Marijuana service: No Current occupational status: disabled Sexual orientation: Don't Know Cognitive needs: No Hearing needs: No Vision needs: No Questionnaire PHQ-9 Over the last 2 weeks, how often have you been bothered by any of the following problems? 1. Little interest or pleasure in doing things: nearly every day 2. Feeling down, depressed, or hopeless: nearly every day 3. Trouble falling or staying asleep, or sleeping too much: nearly every day 4. Feeling tired or having little energy: nearly every day 5. Poor appetite or overeating: nearly every day 6. Feeling bad about yourself - or that you are a failure or have let yourself or your family down: nearly every day 7. Trouble concentrating on things, such as reading the newspaper or watching television: nearly every day 8. Moving or speaking so slowly that other people could have noticed. Or the opposite - being so fidgety or restless that you have been moving around a lot more than usual: not at all 9. Thoughts that you would be better off or of hurting yourself in some way: not at all Total score: 21 Depression Screening Interpretation: Positive Depression Screening Follow-up: Existing condition and In treatment Depression Screening Done: Yes 73443 - PHQ-9 Billing: Yes Source: Developed by Drs. Zay Lopez, Tonya Ornelas, Holger Bourgeois and colleagues, with an educational suellen from [employer]. Thrive Questionnaire Date Thrive assessed: 12/13/23 I am a: Patient What is your living situation today?: I have a steady place to live Within the past 12 months, did the food you bought not last and you didn't have the money to get more?: Never true Within the past 12 months, did you worry whether your food would run out before you got money to buy more?: Never true Do you have trouble paying for medicines?: No Do you have trouble getting transportation to medical appointments?: No Do you have trouble paying your heating and electricity bill?: No Do you have trouble taking care of your child, family member or friend?: No Do you have trouble with day-to-day activities such as bathing, preparing meals, shopping, managing finances, etc.?: No Are you currently unemployed and looking for a job?: No Are you interested in more education?: No Please select the resources that you would like help with: None Currently or been in a relationship where the following occur: No concerns reported THRIVE Score: 0 AUDIT C Alcohol Use Questionnaire (AUDIT-C) 1. How often do you have a drink containing alcohol?: 2-4 times a month 2. How many drinks containing alcohol do you have on a typical day when you are drinking?: 3 or 4 3. How often do you have six or more drinks on one occasion?: Weekly Total Score: 6 Score Reviewed/Action Taken: Yes (he has been advised several times to at least cut back on his drinking) KITTY-7 AMB Questionnaire KITTY-7 Date KITTY - 7 assessed: 12/13/23 Feeling nervous, anxious, or on edge: 0 = Not at all Not being able to stop or control worryin = Not at all Worrying too much about different things: 0 = Not at all Trouble relaxin = Not at all Being so restless that it is hard to sit still: 0 = Not at all Becoming easily annoyed or irritable: 0 = Not at all Feeling afraid as if something awful might happen: 0 = Not at all Total KITTY-7 score (0-4 normal; 5-9 mild; 10-14 moderate; 15-21 severe): 0 Source: Developed by Drs. Zay Lopez, Tonya Ornelas, Holger Bourgeois and colleagues, with an educational suellen from [employer]. Review of Systems Const Denies chills, Reports difficulty sleeping (Zolpidem helps), Reports fatigue, Denies fever(s) and Denies headache(s) ENT Denies dysphagia, Denies dizziness, Denies otalgia, Denies headache(s), Denies neck pain, Denies odynophagia and Denies sore throat Card Denies chest pain, Denies pedal edema, Denies leg edema and Reports dyspnea on exertion (mild) Resp Denies chest congestion, Denies cough and Reports dyspnea on exertion (mild) GI Reports abdominal pain (especially over the epigastric area lately), Reports constipation (chronic athough he reports moving his bowels daily), Denies dysphagia, Denies diarrhea, Reports nausea (occasional), Denies odynophagia and Denies vomiting Denies hematuria, Reports nocturia and Reports urinary frequency Musc Details: recurrent leg pain/cramps with walking Reports back pain, Reports myalgias (diffuse) and Denies neck pain Skin/Breast Denies rash Neuro Denies dizziness and Denies headache(s) Psych Reports anxiety, Denies depression, Reports difficulty concentrating and Denies irritability Endo Reports fatigue Physical exam (Primary Care) Vital Signs: Last Vital Signs Pulse 105 H 12/13/23 12:56 BP 136/84 12/13/23 12:56 Pulse Ox 96 12/13/23 12:56 Oxygen Delivery Method Room Air 12/13/23 12:56 BMI result Body Mass Index 46.8 Tobacco/Smoking Status: Tobacco use Status Tobacco use date assessed 12/13/23 12/13/23 12:59 Patient Tobacco Use Status Current everyday Tobacco 12/13/23 12:59 Tobacco use type Cigarette 12/13/23 12:59 e-Cigarette/Vaping Use Former Use 12/13/23 12:59 PHQ-9: PHQ-9 Score PHQ-9: Total score 21 12/13/23 13:29 Depression Screening Interpretation: Positive Depression Screening Follow-up: Existing condition and In treatment Thrive Assessment: Date of Thrive Assessment Date Thrive assessed 12/13/23 12/13/23 12:59 Currently or been in a relationship where the following occur: No concerns reported Const General: no acute distress and alert HENMT Throat: Yes posterior oropharynx normal and Yes tonsils normal (no TP congestion) Neck Neck: Yes no lymphadenopathy and Yes supple Thyroid: Thyroid normal Resp Auscultation: clear to auscultation bilaterally, no rales and no wheezes Cardio Rate: regular rate Rhythm: regular rhythm Heart sounds: no murmurs GI Inspection: Yes distended (abdomen appears globularly enlarged and distended) Palpation (GI): Soft to palpation, Tenderness to palpation present (GI) (mild) in the epigastrum, no guarding, not rigid and No Rebound tenderness present Auscultation: normal bowel sounds General: Yes no CVA tenderness Back/Spine/Pelvis Back: no CVA tenderness Thoracic/Lumbar Spine: No lumbar spinal tenderness Skin Rashes: no rashes Extrem General: Yes no clubbing, cyanosis or edema Office Procedures Flu Questionnaire Does the patient have a severe egg allergy?: No Immunizations Fluarix Triv [id number] (PF) 45 mcg (15 mcg x 3)/0.5 mL IM syringe Performing Provider: Livan Rosales MD [place] [facility] [place] [facility] Documented (not given) by: KHUSHI Sibley on 12/13/23 13:10 Reason Not Given: Patient Refused Results Reviewed Results Reviewed: Laboratory Tests 11/24/23 14:44 WBC 4.3 L Hgb 14.8 Hct 43.1 Plt Count 294 Sodium 141 Potassium 3.4 Creatinine 0.85 Estimated GFR > 60 Random Glucose 105 Calcium 8.8 D AST 80 H ALT 63 H Lipase 50 Coding Level of Care Code Est Pt Level 4 (82807) Diagnoses Generalized abdominal pain R10.84 Abdominal location: generalized GERD without esophagitis K21.9 Pure hypercholesterolemia E78.00 Vitamin D deficiency E55.9 Type 2 diabetes mellitus with hyperglycemia, without long-term current use of insulin E11.65 Diabetes mellitus type: type 2 Diabetes mellitus fci insulin use: without long chain beamer use Diabetes mellitus complication status: with hyperglycemia Mild intermittent asthma without complication J45.20 Asthma severity: mild Asthma persistence: intermittent Asthma complication type: uncomplicated Chronic idiopathic constipation K59.04 Generalized edema R60.1 Edema type: generalized Midline low back pain without sciatica, unspecified chronicity M54.50 Chronicity: unspecified Back pain laterality: midline Sciatica presence: without sciatica Alcoholism F10.20 Insomnia, unspecified type G47.00 Insomnia type: unspecified Schizoaffective disorder, bipolar type F25.0 Smoker F17.200 Morbid obesity with BMI of 45.0-49.9, adult E66.01; Z68.42 Assessment & Plan Assessment & Plan (1) Abdominal pain: Code(s): R10.9 - Unspecified abdominal pain Category: Medical Qualifiers: Abdominal location: generalized Qualified Code(s): R10.84 - Generalized abdominal pain Plan: Have advised patient that it is unclear at this time what is the actual source of his abdominal pain but there are a few likely possibilities, including gastritis related to his regular alcohol intake His serum lipase level was normal when checked at the ER about 2 to 3 weeks ago so pancreatitis is less likely Have also advised him that his LFTs are significantly elevated on his labs done at the ER a few weeks ago and that these are likely related to hsi weight and also to his frequent alcohol intake Will send him for abdominal US for further evaluation (2) GERD without esophagitis: Code(s): K21.9 - Gastro-esophageal reflux disease without esophagitis Category: Medical Plan: Dietary restrictions reinforced Continue Omeprazole 40 mg QD Follow up with GI as scheduled (3) Pure hypercholesterolemia: Code(s): E78.00 - Pure hypercholesterolemia, unspecified Category: Medical Plan: He is advised that his cholesterol levels are still elevated when they were last checked in September 2023, with his LDL cholesterol still at 142 mg/dl back then Reinforced low cholesterol diet We have been holding off on starting him on cholesterol-lowering medications due to his elevated LFTs (4) Vitamin D deficiency: Code(s): E55.9 - Vitamin D deficiency, unspecified Category: Medical Plan: Have advised him that his Vitamin D level was still low back in September 2023 Continue Vitamin D3 1000 units QD - Rx refilled (5) Diabetes mellitus: Code(s): E11.9 - Type 2 diabetes mellitus without complications Category: Medical Qualifiers: Diabetes mellitus type: type 2 Diabetes mellitus long chain beamer insulin use: without long chain beamer use Diabetes mellitus complication status: with hyperglycemia Qualified Code(s): E11.65 - Type 2 diabetes mellitus with hyperglycemia Plan: His HgbA1c was at 7.4% back in September 2023 (was at 6.6% back in June 2023) - goal is at least <7.0% Reinforced diabetic diet He was also previously referred for dietary counseling He is currently on Semaglutide 0.5 mg SQ once a week (6) Asthma: Code(s): J45.909 - Unspecified asthma, uncomplicated Category: Medical Qualifiers: Asthma severity: mild Asthma persistence: intermittent Asthma complication type: uncomplicated Qualified Code(s): J45.20 - Mild intermittent asthma, uncomplicated Plan: Continue Albuterol HFA 1 to 2 inhalations Q 6 hours as needed (7) Chronic idiopathic constipation: Code(s): K59.04 - Chronic idiopathic constipation Category: Medical Plan: Patient states that this is currently well-controlled Reinforced increased oral fluids and dietary fiber Continue Linzess 145 mcg Q AM, Metamucil 0.4 gm BID PRN and MagOx 500 mg BID Follow up with GI as scheduled (8) Edema: Code(s): R60.9 - Edema, unspecified Category: Medical Qualifiers: Edema type: generalized Qualified Code(s): R60.1 - Generalized edema Plan: Continue Furosemide 40 mg Q AM PRN (9) Low back pain: Code(s): M54.50 - Low back pain, unspecified Category: Medical Qualifiers: Chronicity: unspecified Back pain laterality: midline Sciatica presence: without sciatica Qualified Code(s): M54.50 - Low back pain, unspecified Plan: Lumbar spine x-rays done back in April 2022 came out unremarkable Reinforced activity and weight-lifting restrictions Continue Tizanidine 4 mg TID PRN (10) Alcoholism: Code(s): F10.20 - Alcohol dependence, uncomplicated Category: Medical Plan: Patient is currently still taking about 10 to 20 nips a day - is encouraged to try to quit drinking again Continue Campral 333 mg BID Continue Thiamine 100 mg QD as well as his Vitamin B complex and Vitamin C daily (11) Insomnia: Code(s): G47.00 - Insomnia, unspecified Category: Medical Qualifiers: Insomnia type: unspecified Qualified Code(s): G47.00 - Insomnia, unspecified Plan: Sleep hygiene reinforced Continue Trazodone 50 mg Q HS (12) Schizoaffective disorder, bipolar type: Code(s): F25.0 - Schizoaffective disorder, bipolar type Category: Medical Plan: He was on Aripiprazole ER 400 mg IM Q 30 days and [place] 300 mg QD and 600 mg Q HS previously but states that he stopped taking these on his own and states that his psychiatrist was agreeable to this He was also on Adderall XR 35 mg total daily dose (30 mg + 5 mg) QD instead previously but now appears to be only on Lorazepam 1 mg QD PRN Follow up with psychiatry as scheduled (sees Johnny Macias) (13) Smoker: Code(s): F17.200 - Nicotine dependence, unspecified, uncomplicated Category: Social Hx Plan: Patient is counseled again on smoking cessation (14) Morbid obesity with BMI of 45.0-49.9, adult: Code(s): E66.01 - Morbid (severe) obesity due to excess calories; Z68.42 - Body mass index [BMI] 45.0-49.9, adult Category: Medical Plan: Reinforced diet/exercise as tolerated/lose weight He was previously referred to weight management but states that he has not yet been contacted regarding his referral He is again encouraged to reach out to them and request for an appointment ABIGAIL Plan Follow up in 4 months Orders: Orders Influenza [id number] Immunization 12/13/23 Z23 - Encounter for immunization US abdomen complete 12/13/23 R10.9 - Unspecified abdominal pain Medications: New B-complex with vitamin C 1 cap PO DAILY 90 days 90 caps 3RF Refilled cholecalciferol (vitamin D3) 25 mcg PO DAILY 90 days 90 tabs 3RF
== END 2023-12-13 13:42 | disposition home or self-care (01) ==
LOC: HO.HMCH 12:53
PROVIDERS: PCP Internal Medicine; Visit Provider Internal Medicine
DX: E11.65 Type 2 diabetes mellitus with hyperglycemia (principal); F25.0 Schizoaffective disorder, bipolar type; E66.01 Morbid (severe) obesity due to excess calories; Z68.42 Body mass index [BMI] 45.0-49.9, adult; F10.20 Alcohol dependence, uncomplicated; R10.84 Generalized abdominal pain; K21.9 Gastro-esophageal reflux disease without esophagitis; E78.00 Pure hypercholesterolemia, unspecified; E55.9 Vitamin D deficiency, unspecified; J45.20 Mild intermittent asthma, uncomplicated; K59.04 Chronic idiopathic constipation; R60.1 Generalized edema

== ENCOUNTER → 2023-12-13 12:52 | Outpatient (BNVA) | payer OTHER, SELFPAY | PROVIDERS: PCP Internal Medicine; Visit Provider Internal Medicine | DX: R10.84 Generalized abdominal pain (principal); K21.9 Gastro-esophageal reflux disease without esophagitis; E78.00 Pure hypercholesterolemia, unspecified; E55.9 Vitamin D deficiency, unspecified; E11.65 Type 2 diabetes mellitus with hyperglycemia; J45.20 Mild intermittent asthma, uncomplicated; K59.04 Chronic idiopathic constipation; R60.1 Generalized edema; M54.50 Low back pain, unspecified | CPT/HCPCS: 90471; 96127; 99212 ==

== ENCOUNTER 2024-01-09 07:59 | Outpatient (REF) | payer OTHER, SELFPAY | END 2024-01-09 08:00 | disposition home or self-care (01) | LOC: HO.US 07:59 | PROVIDERS: PCP Internal Medicine; Visit Provider Internal Medicine | DX: R10.9 Unspecified abdominal pain (principal) | CPT/HCPCS: 76700 ==

== ENCOUNTER 2024-01-23 14:51 | Outpatient (AMB) | payer OTHER, SELFPAY ==
[2024-01-23 14:52] VITALS: BP 136/70; RESP 112; O2SAT 97
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
--- OUTSIDE RECORDS SUMMARY | 2024-01-24 22:13 | XMS_ITS ---
Care Plan - [facility] Created on: January 24, 2024 Danielle Villar : 1985 Sex: Male Author Organization [facility] Address [address] [place] [address] Phone Care Team Providers Care Personnel Monitor Name Role Phone Livan Rosales Primary Care Provider [phone] [facility] Unavailable [phone]
--- OUTSIDE RECORDS SUMMARY | 2024-01-24 22:13 | XMS_ITS ---
Author Organization [facility] Address [address] [place] [address] Phone Care Team Providers Care Astrophysics Professor Name Role Phone Livan Rosales Primary Care Provider [phone] [facility] Un[facility] [phone] Plan of Treatment Future Appointments Date Time Location Provi dylan Post Op Visit/Follow Up 02/05/2024 8:20AM [facility] Wei Duckworth MD Last Documented On 4 9:46AM ; [facility] Assessments Includes: Assessments for all patient encounters No Assessments Recorded Medical Equipment - Implanted Devices Includes: Current and historical Devices No Medical Equipment Recorded Medications Administered Includes: Administered Medications in patient's chart No Administered Medications Recorded Results Includes: Results from 01/23/2023 through 01/24/2024 No Results Recorded For Specified Dates History of Present Illness History of Present Illness not supported for this document type No History of Present Illness Recorded Social History No Social History Recorded - Smoking Status Unknown Procedures and Surgical History Includes: Procedures from 01/23/2023 through 01/24/2024 Procedures Code Diagnosis Performing Provider Service Location Service Date 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 Of 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, 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, 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) 54851 Strain of musc/tend at lower leg level, left leg, init Jolynn SCHWARZ [facility] 01/18/2024 Last Documented On 4 2:46PM ; [facility] Repair Of 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) 57317 Strain of musc/tend at lower leg level, left leg, init Tiburcio Johnson MD [facility] 01/18/2024 Last Documented On 4 2:46PM ; [facility] Medical History Includes: Medical History in patient's chart No Medical History Recorded Family History Includes: Family History in patient's chart No Family History Recorded Review of Systems Review of Systems not supported for this document type No Review of Systems Recorded Mental Status No Mental Status Recorded Functional Status No Functional Status Recorded Physical Exam Physical Exam not supported for this document type No Physical Exam Recorded Insurance Includes: Active Insurance Policies Plan Name Member ID Group # Subscriber Relationship Effect brianda Dates 1 - [facility] [id number] Danielle Mccormack Clinical Notes Includes: Signed Clinical Notes starting from 01/23/2022 No Clinical Notes Recorded
== END 2024-01-23 15:28 | disposition home or self-care (01) ==
PROVIDERS: PCP Internal Medicine; Visit Provider Internal Medicine
DX: E11.65 Type 2 diabetes mellitus with hyperglycemia (principal); F10.20 Alcohol dependence, uncomplicated; E66.01 Morbid (severe) obesity due to excess calories; Z68.42 Body mass index [BMI] 45.0-49.9, adult; F25.0 Schizoaffective disorder, bipolar type; S89.91XS Unspecified injury of right lower leg, sequela; R60.1 Generalized edema; K21.9 Gastro-esophageal reflux disease without esophagitis; E78.00 Pure hypercholesterolemia, unspecified; E55.9 Vitamin D deficiency, unspecified; J45.20 Mild intermittent asthma, uncomplicated; K59.04 Chronic idiopathic constipation

== ENCOUNTER → 2024-01-23 14:51 | Outpatient (BNVA) | payer OTHER, SELFPAY | PROVIDERS: PCP Internal Medicine; Visit Provider Internal Medicine | DX: S89.91XS Unspecified injury of right lower leg, sequela (principal); R60.1 Generalized edema; K21.9 Gastro-esophageal reflux disease without esophagitis; E78.00 Pure hypercholesterolemia, unspecified; E11.65 Type 2 diabetes mellitus with hyperglycemia; E55.9 Vitamin D deficiency, unspecified; J45.20 Mild intermittent asthma, uncomplicated; K59.04 Chronic idiopathic constipation; M54.50 Low back pain, unspecified; F10.20 Alcohol dependence, uncomplicated; G47.00 Insomnia, unspecified; F25.0 Schizoaffective disorder, bipolar type; E66.01 Morbid (severe) obesity due to excess calories; Z68.42 Body mass index [BMI] 45.0-49.9, adult; F17.200 Nicotine dependence, unspecified, uncomplicated; Z71.6 Tobacco abuse counseling; Z71.3 Dietary counseling and surveillance | CPT/HCPCS: 96127; 99212 ==

== ENCOUNTER 2024-03-26 10:54 | Outpatient (AMB) | payer OTHER, SELFPAY ==
[2024-03-26 11:03] VITALS: BP 130/96; PULSE 105; O2SAT 97
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
--- OUTSIDE RECORDS SUMMARY | 2024-03-26 12:15 | XMS_ITS | Data Portability ---
Author Organization [facility], Main Office Address [address], [address] [place] [address] Care Team Providers Care Claims Support Specialist Name Role Phone [facility] OTHER Assessment No assessment recorded. Plan of Treatment Reminders Order Date Submit Date Provider Last Modified By Organization Details Last Modified Time Details Appointments None record ed. Lab None record ed. Referral None record ed. Procedures None record ed. Surgeries None record ed. Imaging None record ed. Medication Orders None record ed. Patient TargetsNo targets recorded. Patient InstructionsNo instructions recorded. Reason for Referral None Reported. Problems Name Problem SNOMED Code Status Onset Date Resolution Date Notes Provider Name and Address Organization Details Recorded Time Left patellar tendon rupture [id number] 9100 Active 2024 [facility] [address], [address], [place], [address], [facility] 5 05:39:03 Acute pain 122421750 Active 2024 [facility] [address], [address], [place], [address], [facility] 5 05:39:18 Fracture of upper end of fibula 81507930 Active 2024 [facility] [facility] [address], [address], [place], [address], [facility] 5 05:40:07 Anxiety 63719908 Active 2024 [facility] [facility] [address], [place], [address], [facility] 5 05:40:50 Attention deficit hyperactivi ty disorder 382810292 Active 2024 [facility] [address], [address], [place], [address], [facility] 5 05:40:57 Tachycardia 1081374 Active 2024 [facility] [address] [facility], [address], [place], [address], [facility] 5 05:41:05 Asthenia 71943801 Active 2024 [facility] [address], [address], [place], [address], [facility] 5 05:42:19 Obstructive sleep apnea syndrome 69803820 Active 2024 [facility] [address] [facility] [address], [address], [place], [address], [facility] 5 05:42:29 Problem Notes None recorded. Medical Equipment None Reported. Vitals Date Recorded Heart rate Respiratory rate Body temperature Oxygen saturation Oxygen saturation in Arterial blood by Pulse oximetry Systolic blood pressure Diastolic blood pressure Provider Name and Address Organization Details Last Updated DateTime 5 100 /min 18 /min 97.9 [degF] 94 % 94 % 140 mm[Hg] 71 mm[Hg] GENET WHITE NP [address] [facility] [address], [address], [place], [address], [facility] 5 14:20:45 Social History None recorded. Functional Status None recorded. Mental Status None recorded. Family History Nothing Reported. Medical History No medical history recorded. Gynecological HistoryNo gynecological history recorded. Obstetrics History GPAL:G 0 P 0 0 0 0 Past Encounters Encounter ID Performer Location Encounter Start Date Encounter Closed Date Diagnosis/Indication Diagnosis SNOMED-CT Code Diagnosis ICD10 Code Diagnosis Note [id number] [place] [address] 02/20/2024 11:22:09 02/21/2024 12:21:51 Fracture of upper end of fibula 43612322 S89.D Left patellar tendon rupture requiring revision and placement of external fixator by Dr. Esquivel.Nonw eightbeari ng left lower extremityc ontinue to use walker or crutches for ambulation .continue oxycodone 5-10 mg q4h prncontinu e gabapentin 200 mg bidasa 81 mg bid x 3 moscontinu e PT Ara/up with orthopedic surgery as planned Left bowser lar tendon rupture [id number] 2149681 S76.112D see above Acute pain 679874743 R52 see pain med plan abovemonit or painmonito r utilizatio n of narcs and wean as tolerated Asthenia 13083452 R53.1 continue PT OTindepend ent at baseline Tachycardia 5966221 R00. 0 tachycardi c 150s with [id number] -130s at restdrinki ng a monster and on adderall (see HPI)check HR prior to adderall administra tionwill obtain an ECG to make sure hes not in afibmonito r vitals qshift x 3 days Obstructiv e sleep apnea syndrome 52750812 G47.33 not on CPAPshould have outpatient sleep study Attention deficit hyperactivity disorder 605955083 F90.9 continue adderall 35 mg dailymonit or HR prior to giving med Anxiety 59655355 F41.9 continue sertraline 50 mg qhscontinu e ambien 5 mg qhs prn for sleeprefus ed psych eval with [facility] [address] [id number] GENET WHITE NP [facility] [address] [place] [address] 02/26/2024 14:20:03 02/28/2024 08:26:45 Fracture of upper end of fibula 07293373 S89.202D Left patellar tendon rupture requiring revision and placement of external fixator by Dr. Esquivel.Nonw eightbeari ng left lower extremityc ontinue to use walker or crutches for ambulation .continue oxycodone 5-10 mg q4h prn - occasional use per MARcontinu e gabapentin 200 mg bidasa 81 mg bid x 3 moscontinu e PT Ara/up with orthopedic surgery tomorrow. D/C plans discussed, he would like to go home soon if possible. Reviewed that he needs to be both medically stable as well as strong enough and safe enough to return to his home living situation per rehab staff. SS notified, will be up to see pt. Medically, no concerns here. Encouraged to discuss discharge with Ortho during visit tomorrow, and encouraged pt. to talk with therapy tomorrow to find out if he is at a safe level to go home. Left bowser lar tendon rupture [id number] 1073100 S76.112D see above Acute pain 427683244 R52 Pain controlled - continue APAP, gabapentin , and oxycodone. monitor pain, adjust meds as needed.mon itor utilizatio n of narcs and wean as tolerated Asthenia 30018880 R53.1 continue PT OTindepend ent at baseline Tachycardia 2514054 R00. 0 Monitor HR, check prior to adderall use daily.Avoi d caffeine - encouraged pt. to drink decaf coffee and avoid other drinks with high caffeine levels Check with nsg. re: EKG results Obstructiv e sleep apnea syndrome 63587983 G47.33 not on CPAPshould have outpatient sleep study Attention deficit hyperactivity disorder 699934747 F90.9 continue adderall 35 mg dailymonit or HR prior to giving med Anxiety 24937096 F41.9 continue sertraline 50 mg qhscontinu e ambien 5 mg qhs prn for sleeprefus ed psych eval with [employer] [employer] [facility] [id number] JASPAL BENDER, OFFICE ADMIN-C [facility] [address] [place] [address] 03/05/2024 08:14:56 03/06/2024 15:48:02 Fracture of upper end of fibula 25539379 S89.202D Left patellar tendon rupture requiring revision and placement of external fixator by Dr. Esquivel.Nonw eightbeari ng left lower extremityc ontinue to use walker or crutches for ambulation .will send home with oxycodone 5 mg q8h prn x 14 dayscontin ue gabapentin 200 mg bidasa 81 mg bid x 3 moscontinu e PT OThad f/up with ortho surgery 02/26 with routine healingfol low up with ortho surgery fe Left bowser lar tendon rupture [id number] 7013597 S76.112D see above Asthenia 09831020 R53.1 returning home tomorrowin dependent at baselineus ing crutches and cane to ambulateho me PT OT set up Tachycardia 8286157 R00. 0 Monitor HR while on adderallAv oid caffeine - encouraged pt. to drink decaf coffee and avoid other drinks with high caffeine levels f/up with pcp Obstructiv e sleep apnea syndrome 09661157 G47.33 not on CPAPshould have outpatient sleep study Attention deficit hyperactivity disorder 400160576 F90.9 continue adderall 35 mg dailymonit or HR prior to taking medf/up with pcp Anxiety 87982798 F41.9 continue sertraline 50 mg qhscontinu e ambien 5 mg qhs prn for sleeprefus ed psych eval with health drive while heref/up with pcp Health Concerns Section Related Observation LastModified by Organization Detai ls LastModified Time None Recorded Concern Status LastModified by Organization Details LastModified Time None Recorded Advance Directives Directive None Recorded Payers Encounter Date Sequence Insurance Name Policy Number Policy Steve Covered Member ID Steve Member ID Guarantor Name 02/20/2024 1 [facility] - DOS ON OR AFTER 2022 - MEDICARE ADVANTAGE [place]EMENT/ADV ANTAGE - PPO) Danielle Villar [id number] Danielle Villar 02/26/2024 1 [facility] - DOS ON OR AFTER 2022 - [place]V ANTAGE - [place]PO) Danielle Villar [id number] Danielle Villar 03/05/2024 1 [facility] - DOS ON OR AFTER 2022 - [place]V ANTAGE - PPO) Danielle Villar [id number] Danielle Villar Notes Date Note Type Note Provider Name and Address Organization Details Recorded Time 02/20/2024 text/html Pt is a 38-year- old male being seen today for a transfer of care. Pt has a recent fall with left patellar tendon rupture s/p repair on 01/18/2024. Once stable he was transferred to [place] to complete rehab. He was seen today with tachycardia. Nursing reports his HR was in the 150s with therapy and then 120-130s at rest. Upon review pt was found to have bottles of his adderall meds in his room over the weekend, which he was reportedly taking per staff report. These were taken from him. Today is mon. Upon entering the room pt is drinking a monster energy drink. He tells me he is anxious, but have baseline anxiety. He denies cp or palpitations. He appears comfortable with controlled pain. He tells me that at times he does have pain. PMH obesity, OSMAR, anxiety JASPAL BENDER NP-C [address], [address], [place], [address], [facility] 02/21/2024 06:04:41 02/26/2024 text/html Danielle is seen tod ay for an acute visit. He is a 38-year-old male, here for rehab and continued care after a hospitalization due to a patellar tendon rupture and repair on 01/17/25. He was seen last week due to tachycardia, felt related to possible excess adderall use and excess caffeine intake.EKG done, no results found in EMR. Upon exam today, Danielle is up OOB in his w/c, alert, NAD. Discharge plans discussed, and he would like to get home sooner rather than later. Explained he needs to be medically stable, and to be cleared by rehab that he is strong enough and safe enough to go home to his living situation. He has Ortho follow up tomorrow, encouraged pt. to also discuss discharge plans with Ortho. Pain is currently tolerable, offers no other complaints.Tachycardi a discussed, says he only had one Monster drink today and 1 cup of coffee.VSS, apical HR today 104.Labs stable. PMH obesity, OSMAR, anxiety GENET WHITE NP [address], [address], [place], [address], [facility] 02/26/2024 14:45:59 03/05/2024 text/html Pt is a 38-year- old male being seen today for a discharge summary visit. Pt has a recent fall with left patellar tendon rupture s/p repair on 01/18/2024. Once stable he was transferred to [place] to complete rehab. Patient is being discharge home today with meds and services. He has been referred for services for PT OT. During his admit he was found to be tachycardic, an ecg was obtained showing sinus tach. This was likely in the setting of adderall dosing and drinking caffeine energy drinks. He denies cp, sob, or palpitations. He does struggle with anxiety. He feels ready to go home and is medically clear. He will need ortho on mar 18 and PCP follow up. PMH obesity, OSMAR, anxiety [facility] [address] [facility] [address], [address], [place], [address], [facility] 03/05/2024 09:04:12 OBGyn Episode No OBEpisode recorded.
--- OUTSIDE RECORDS SUMMARY | 2024-03-26 12:16 | XMS_ITS | Encounter Summary ---
Author Organization [facility] Address [address] [place] [address] Care Team Providers Care International Marketing Intern Name Role Phone Livan Rosales MD Primary Care Provider Encounter Details Date Type Department Care Team (Late st Contact Info) Description 02/21/2024 Lab Requisition [facility] - Main Lab [address] [facility] [place] [address] Berry Garcia MD [address] [facility] [address] [place], [address] Tachycardia, unspecified Social History Tobacco Use Types Packs/Day Years Used Date Smoking Tobacco: Former Cigarettes Smokeless Tobacco: Never Housing Instability Answer Date Recorde d Are you worried that in the next 2 months you may not have stable housing? Patient declined 01/28/2024 Food Access & Nutrition Answer Date Rec orded Do you have access to a vari ety of food including fruits and vegetables? Patient declined 01/28/2024 Access to Healthcare Answer Date Record ed Within the last 3 months, ho w many times did you visit the emergency department for your medical care? 2 01/28/2024 Health Literacy Answer Date Recorded How often do you need to hav e someone help you when you read instructions, pamphlets, or other written material from your doctor or pharmacy? Patient declined 01/28/2024 Caregiver: How often do you need to have someone help you when you read instructions, pamphlets, or other written material from your doctor or pharmacy? Not on file 024 Financial Risk Answer Date Recorded How hard is it for you to pa y for the very basics like food, housing, medical care, and air conditioning / heating? Patient declined 01/28/2024 Transportation Answer Date Recorded Has the lack of transportati on kept you from meetings, work, or from getting things needed for daily living? Patient declined 01/28/2024 Has the lack of transportati on kept you from medical appointments or from getting medications? Patient declined 01/28/2024 Social Isolation Answer Date Recorded How often do you feel lonely or isolated from those around you? Patient declined 01/28/2024 Food Risk Answer Date Recorded Within the past 12 months we worried whether our food would run out before we got money to buy more. Patient declined 024 Within the past 12 months th e food we bought just didn't last and we didn't have money to get more. Patient declined 01/13 Dependent Care Answer Date Recorded Do you need help finding or paying for care for your loved ones. For example, early childhood services coordinator or elderly care for an older adult? Patient declined 01/28/2024 Education Answer Date Recorded Do you think completing more education or training, like finishing a GED, going to college, or learning a trade, would be helpful for you? Patient declined 01/28/2024 Employment and Income Answer Date Recor ded During the last four weeks, have you been actively looking for work? Patient declined 01/28/2024 Living Situation Answer Date Recorded What is your living situation? 1 03/30/2023 Interpersonal Safety Answer Date Record ed Physical Abuse 01/28/2024 Verbal Abuse 01/28/2024 Sex and Gender Information Value Date Recorded Sex Assigned at Male 01/17/2024 7:59 AM EST Legal Sex Male 1:22 AM EST Gender Identity Male 01/17/2024 7:59 AM EST Sexual Orientation Lesbian or Varela 01/18/2024 2: 59 AM EST documented as of this encounter Functional Status * Are you deaf or do you have serious difficulty hearing? Answer Date of Assessment Author No 01/17/2024 8:00 AM EST Azevedo RN * Are you blind or do you have serious difficulty seeing, even when wearing glasses? Answer Date of Assessment Author No 01/17/2024 8:00 AM Walker RN * Do you have serious difficulty walking or climbing stairs? Answer Date of Assessment Author No 01/17/2024 8:00 AM Walker RN * Do you have serious difficulty dressing or bathing? Answer Date of Assessment Author No 01/17/2024 8:00 AM Walker RN * Because of a physical, mental, or emotional condition, do you have serious difficulty doing errandsalone such as visiting the doctor? Answer Date of Assessment Author No 01/17/2024 8:00 AM Walker RN documented as of this encounter Mental Status * Because of a physical, mental, or emotional condition, do you have serious difficulty concentrating, remembering, or making decisions? (5 years old or older) Answer Entry Date Author No 01/17/2024 8:00 AM Walker RN documented in this encounter Plan of Treatment Not on file documented as of this encounter Procedures Procedure Name Priority Date/Time Associated Diagnosis Comments COMPLETE BLOOD COUNT Routine 02/21/2024 5:32 AM EST Tachycardia, unspecified BASIC METABOLIC PANEL Routine 02/21/2024 5:32 AM EST Tachycardia, unspecified documented in this encounter Results * (ABNORMAL) Basic metabolic panel (02/21/2024 5:32 AM EST) Pathologist [facility] Sodium 139 133 - 145 mmol/L LAB CHEMISTRY METHOD 02/21/2024 10:07 AM [facility] Potassium 4.3 3.5 - 5.5 mmol/L LAB CHEMISTRY METHOD 02/21/2024 10:07 AM [facility] Chloride 107 96 - 110 mmol/L LAB CHEMISTRY METHOD 02/21/2024 10:07 AM [facility] CO2 26 21 - 32 mmol/L LAB CHEMISTRY METHOD 02/21/2024 10:07 AM [facility] Anion Gap 6 3 - 11 LAB CHEMISTRY METHOD 02/21/2024 10:07 AM [facility] Glucose 86 70 - 100 mg/dL LAB CHEMISTRY METHOD 02/21/2024 10:07 AM [facility] BUN 8 5 - 25 mg/dL LAB CHEMISTRY METHOD 02/21/2024 10:07 AM [facility] Creatinine 0.79 0.70 - 1.30 mg/dL LAB CHEMISTRY METHOD 02/21/2024 10:07 AM [facility] eGFR 118 >=60 mL/min/1. 73m2 LAB CHEMISTRY METHOD 02/21/2024 10:07 AM [facility] Comment:Calculation based on the??Chronic Kidney Disease Epidemiology Collaboration (CKD-EPI) equation refit??without adjustment for race. BUN/Creatinine Ratio 10.1 LAB CHEMISTRY METHOD 02/21/2024 10:07 AM [facility] Calcium 8.3(L) 8.5 - 10.5 mg/dL LAB CHEMISTRY METHOD 02/21/2024 10:07 AM [facility] Blood Venous blood specimen / Unknown Venipuncture / Unknown 02/21/2024 5:32 AM EST 02/21/2024 9:14 AM EST us Berry Garcia MD LAB BLOOD ORDERABLES Final Resul t [facility] [address] [place] [address], [place] [phone] * (ABNORMAL) Complete blood count (02/21/2024 5:32 AM EST) WBC 6.0 4.8 - 10.8 K/mcL LAB HEMETOLOGY METHOD 02/21/2024 9:57 AM [facility] RBC 4.40(L) 4.50 - 5.50 M/mcL LAB HEMETOLOGY METHOD 02/21/2024 9:57 AM [facility] Hemoglobin 11.3(L) 13.5 - 17.5 g/dL LAB HEMETOLOGY METHOD 02/21/2024 9:57 AM [facility] Hematocrit 35.8(L) 42.0 - 54.0 % LAB HEMETOLOGY METHOD 02/21/2024 9:57 AM [facility] MCV 82.1 79.0 - 98.0 FL LAB HEMETOLOGY METHOD 02/21/2024 9:57 AM EST [facility] MCH 25.9(L) 27.0 - 32.0 pcg LAB HEMETOLOGY METHOD 02/21/2024 9:57 AM [facility] MCHC 31.6(L) 32.0 - 37.0 g/dL LAB HEMETOLOGY METHOD 02/21/2024 9:57 AM EST [facility] RDW 13.9 11.0 - 15.0 % LAB HEMETOLOGY METHOD 02/21/2024 9:57 AM EST [facility] Platelets 385 130 - 400 K/mcL LAB HEMETOLOGY METHOD 02/21/2024 9:57 AM [facility] MPV 9.3 7.0 - 11.0 FL LAB HEMETOLOGY METHOD 02/21/2024 9:57 AM EST [facility] NRBC 0.0 <1.0 % LAB HEMETOLOGY METHOD 02/21/2024 9:57 AM [facility] NRBC Absolute 0.00 <0.10 K/mcL LAB HEMETOLOGY METHOD 02/21/2024 9:57 AM [facility] Blood Venous blood specimen / Unknown Venipuncture / Unknown 02/21/2024 5:32 AM EST 02/21/2024 9:14 AM EST us Berry Garcia MD LAB BLOOD ORDERABLES Final Resul t [facility] [address] [place] [address], documented in this encounter Visit Diagnoses Diagnosis Tachycardia, unspecified documented in this encounter Care Teams International Marketing Intern Relationship Specialty Start Date End Date Livan Rosales MD [address] [place] [address] Dr [address] GRISELDA Moore PCP - General Internal Medicine 01/17/24 documented as of this encounter
--- OUTSIDE RECORDS SUMMARY | 2024-03-26 12:16 | XMS_ITS ---
Care Plan - [facility] Created on: March 26, 2024 Danielle Villar : 1985 Sex: Male Author Organization [facility] Address [address] [place] [address] Phone Care Team Providers Care Revenue Stamper Name Role Phone Livan Rosales Primary Care Provider [phone] [facility] Unavailable [phone]
--- OUTSIDE RECORDS SUMMARY | 2024-03-26 12:16 | XMS_ITS | Clinical Summary ---
Author Organization [facility] Address [address] [place] [address] Phone Care Team Providers Care Workforce Management Consultant Name Role Phone Livan Rosales MD Primary Care Provider Allergies Active Allergy Reactions Criticality Noted Date Comments Cat Dander 01/27/2024 itchy eyes, throat irritation, runny nose Pineapple 01/27/2024 Medications aspirin 81 mg EC tablet Take 1 tablet (81 mg total) by mouth 2 (two) times a day. 4 05/07/19 Active gabapentin (NEURONTIN) 100 mg capsule Take 1 capsule (100 mg total) by mouth 2 (two) times a day. Active sertraline (ZOLOFT) 50 mg tablet Take 1 tablet (50 mg total) by mouth at bedtime. Active oxyCODONE (ROXICODONE) 10 mg immediate release tablet Take 1 tablet (10 mg total) by mouth every 4 (four) hours if needed for severe pain. Max Daily Amount: 60 mg 15 tablet 4 Active oxyCODONE (ROXICODONE) 5 mg immediate release tablet Take 1 tablet (5 mg total) by mouth every 4 (four) hours if needed for moderate pain. Max Daily Amount: 30 mg 15 tablet 4 Active psyllium (METAMUCIL) 3.4 gram packet Take 1 packet by mouth 1 (one) time each day. 03/08/19 Active Problems Problem Noted Date Diagnosed Date Patellar tendon avulsion, left, sequela 01/30/20 Resolved Problems Problem Noted Date Diagnosed Date Resolved Date Patellar tendon rupture, lef t, subsequent encounter 01/29/2024 02/06/2024 Rupture of left patellar ten don, subsequent encounter 01/27/2024 02/06/2024 Patellar fracture 01/17/2024 01/19/2024 Encounters Date Type Department Care Team Description 02/21/2024 Lab Requisition [facility] - Main Lab [address] [place] [phone] Berry Garcia MD Tachycardia, unspecified 01/31/2024 12:30 PM EST - 01/31/2024 2:[address] [facility] [place] [address] [place] [phone] Leann Esquivel MD REPAIR LIGAMENT OR TENDON PATELLA, revision repair spanning external fixator to left lower extremity [93259 (CPT??)] 01/31/2024 12:17 PM EST [address]hesia Event [facility] [place] [address] [place] [phone] Gucci Rodriguez MD 01/27/2024 2:02 PM EST - 02/06/2024 5:43 PM EST Hospital Encounter [facility] Medical Surgical Unit [address] [place] [phone] Mitchell Corley MD Sondhi, Vikram, MD Alam, Aroosa, MD Bell, Alistair A, MD Kokosadze, Estate, MD Patellar tendon rupture, left, subsequent encounter (Primary Dx); Rupture of left patellar tendon, subsequent encounter; Pain Discharge Disposition: Group Home Facility 01/18/2024 10:29 AM EST Anesthesia Event [facility] OR [address] [place] [phone] Mitchell Monge MD 01/18/2024 9:30 AM EST - 01/18/2024 11:[address] [facility] OR [address] [place] [phone] Jericho Dominguez MD REPAIR LIGAMENT OR TENDON PATELLA 01/17/2024 7:54 AM EST - 01/19/2024 4:11 PM EST Hospital Encounter [facility] Urology Unit [address] [place] [phone] Jelani Johnson, Kieran Low MD Acute pain of left knee (Primary Dx) Discharge Disposition: Home or Self Care from Last 3 Months Surgical History Surgery Date Site/Laterality Comments PATELLAR TENDON REPAIR 01/18/2024 Left Medical History Medical History Date Comments Patellar tendon rupture 01/17/2024 left Obesity (BMI 30.0-34.9) Social History Tobacco Use Types Packs/Day Years Used Date Smoking Tobacco: Former Cigarettes Smokeless Tobacco: Never Tobacco Cessation:Counseling Given: Not Answered Housing Instability Answer Date Recorde d Are [...] got money to buy more. Patient declined Within the past 12 months th e food we bought just didn't last and we didn't have money to get more. Patient declined 01/13 Dependent Care Answer Date Recorded Do you need help finding or paying for care for your loved ones. For example, exceptional children teacher or elderly care for an older adult? [...] or Varela 01/18/2024 2: 59 AM EST Obstetrics History Last Filed Vital Signs Vital Sign Reading Time Taken Comments Blood Pressure 139/90 02/06/2024 2:57 PM EST Pulse 95 02/06/2024 2:57 PM EST Temperature 36.9 ??C (98.4 ??F) 02/06/2024 2:57 PM ES T Respiratory Rate 17 02/06/2024 2:57 PM EST Oxygen Saturation 99% 02/06/2024 2:57 PM EST Inhaled Oxygen Concentration - - Weight 152 kg (335 lb 11.2 oz) 01/28/2024 7:55 A M EST Height 180.3 cm (5' 10.98 ) 01/28/2024 7:[address] Body Mass Index 46.84 01/28/2024 7:55 AM EST Plan of Treatment Health Maintenance Due Date Last Done Comments Pneumococcal Vaccine: Pediatrics (0 to 5 Years) and At-Risk Patients (6 to 64 Years) (2 of 2 - PCV) 07/24/2011 07/23/2010 DTaP,Tdap,and Td Vaccines (7 - Td or Tdap) 08/06/2018 08/06/2008, 06/30/1999, 05/17/1989, Additional history exists Cholesterol Screening (Lipid Panel) 01/16/2022 Depression Screening 01/16/2022 HIV Screening 01/16/2022 Hepatitis C Screening 01/16/2022 Medicare Annual Wellness Visit 01/16/2022 COVID-19 Vaccine ( season) 2023 Influenza Vaccine (#1) 2023 8, 10/31/2016, 10/23/2008, Additional history exists Social Influencers of Health Screening 01/27/2025 01/28/2024 HIB Vaccines Completed 05/17/1989 IPV Vaccines Completed 04/28/1993, 05/1989, 09/21/1988, Additional history exists Varicella Vaccines Completed 04/12/2005, 07/12/2002 MMR Vaccines Completed 05/16/2005, 06/1991, 05/22/1988 Hepatitis A Vaccines Aged Out 12/16/2010 No long er eligible based on patient's age to complete this topic Hepatitis B Vaccines Completed 12/16/2010, 04/13/2000, 07/31/1999, Additional history exists HPV Vaccines Aged Out No longer eligi ble based on patient's age to complete this topic Meningococcal ACWY Vaccine Aged Out N o longer eligible based on patient's age to complete this topic Meningococcal B Vacine Aged Out No lo nger eligible based on patient's age to complete this topic RSV Immunization Patients Under 20 months Aged Out No longer eligible based on patient's age to complete this topic Medical Devices Implanted Type Area Voice Instructor Device Identifier Shelf Expiration Date Model / Serial / Lot Clamp [place] 4h Arbor Returned Case Inspector Fixation - Sn/A - [id number] Implanted:Qty: 10 on 01/31/2024 by Leann Esquivel MD at [facility] Internal and External Fixation Left: Leg [facility] [id number] / N/A / N/A Bar Carbn Fiber [id number] Abror Returned Case Inspector Fixation - Sn/A - [id number] Implanted:Qty: 4 on 01/31/2024 by Leann Esquivel MD at [facility] Internal and External Fixation Left: Femur [facility] [id number] / N/A / N/A Pin Schanz [id number] Slf Drill 40mm Cortical Thrd Ss Arbor - Sn/A - [id number] Implanted:Qty: 2 on 01/31/2024 by Leann Esquivel MD at [facility] Internal and External Fixation Left: Femur [facility] [id number] / N/A / N/A Pin Schanz [id number] Slf Drill 40mm Cortical Thrd Arbor - Sn/A - [id number] Implanted:Qty: 2 on 01/31/2024 by Leann Esquivel MD at [facility] Internal and External Fixation Left: Leg [facility] [id number] / N/A / N/A Procedures Procedure Name Priority Date/Time Associated Diagnosis Comments BASIC METABOLIC PANEL Routine 02/21/2024 5:32 AM EST Tachycardia, unspecified COMPLETE BLOOD COUNT Routine 02/21/2024 5:32 AM EST Tachycardia, unspecified ECG 12-LEAD STAT 02/01/2024 1:36 PM EST CBC WITH AUTO DIFFERENTIAL Routine 02/01/2024 8:21 AM EST CBC AND DIFFERENTIAL Routine 02/01/2024 8:21 AM EST BASIC METABOLIC PANEL Routine 02/01/2024 8:21 AM EST XR KNEE 1-2 VIEWS LEFT Routine 4 1:53 PM EST Pain TH AN LMA(NO CHARGE) Routine 01/31/2024 12:49 PM EST [place] SUTURE OF INFRAPATELLAR TENDON PRIMARY 01/31/2024 12:18 PM EST Patellar tendon avulsion, left, sequela ARTERIAL BLOOD GAS STAT 01/29/2024 10 :47 AM EST CBC WITH AUTO DIFFERENTIAL Routine 01/29/2024 8:37 AM EST BASIC METABOLIC PANEL Routine 01/29/2024 8:37 AM EST CBC AND DIFFERENTIAL Routine 01/29/2024 8:37 AM EST CPAP NIV Routine 01/28/2024 10:52 PM EST MR KNEE WO CONTRAST LEFT Routine 01/28/2024 3:26 PM EST OPIATES CONFIRMATION, URINE Routine 01/28/2024 11:50 AM EST AMPHETAMINES, QUANTITATIVE, URINE Routine 01/28/2024 11:50 AM EST DRUG ABUSE SCREEN EXPANDED WITH REFLEX CONFIRMATION, URINE Routine 01/28/2024 11:50 AM EST HEPATIC FUNCTION PANEL Add-On 5:57 AM EST THYROID STIMULATING HORMONE WITH REFLEX TO FREE T4 AND FREE T3 Routine 01/28/2024 5:57 AM EST HEMOGLOBIN A1C Routine 01/28/2024 5:57 AM EST COMPLETE BLOOD COUNT Routine 01/28/2024 5:57 AM EST PHOSPHORUS Routine 01/28/2024 5:57 AM EST MAGNESIUM Routine 01/28/2024 5:57 AM EST BASIC METABOLIC PANEL Routine 01/28/2024 5:57 AM EST AMMONIA Routine 01/27/2024 8:05 PM EST COMPLETE BLOOD COUNT Routine 01/19/2024 6:27 AM EST BASIC METABOLIC PANEL Routine 01/19/2024 6:27 AM EST XR KNEE 1-2 VIEWS LEFT STAT 4 2:14 PM EST POTASSIUM Routine 01/18/2024 1:51 PM EST OXYGEN THERAPY, ADULT Routine 01/18/2024 12:57 PM EST OXYGEN THERAPY, ADULT Routine 01/18/2024 12:57 PM EST TH AN ENDOTRACHEAL(NO CHARGE) Routine 01/18/2024 11:08 AM EST REPAIR LIGAMENT OR TENDON PATELLA 01/18/2024 10:26 AM EST Ruptured patellar tendon, left, initial encounter PROCEDURAL ECG Routine 01/18/2024 10:17 AM EST COMPLETE BLOOD COUNT Routine 01/18/2024 6:32 AM EST BASIC METABOLIC PANEL Routine 01/18/2024 6:32 AM EST XR KNEE 4+ VIEWS LEFT STAT 01/17/2024 7:50 AM EST CBC WITH AUTO DIFFERENTIAL STAT 01/17/2024 2:22 AM EST LIPASE STAT 01/17/2024 2:22 AM EST COMPREHENSIVE METABOLIC PANEL STAT 01/17/2024 2:22 AM EST CBC AND DIFFERENTIAL STAT 01/17/2024 2:22 AM EST from Last 3 Months Results * (ABNORMAL) Complete blood count (02/21/2024 5:32 AM EST) Only the most recent of4 resultswithin the time period is included. WBC 6.0 4.8 - 10.8 K/mcL LAB HEMETOLOGY METHOD 02/21/2024 9:57 AM [facility] RBC 4.40(L) 4.50 - 5.50 M/mcL LAB HEMETOLOGY METHOD 02/21/2024 9:57 AM [facility] Hemoglobin 11.3(L) 13.5 - 17.5 g/dL LAB HEMETOLOGY METHOD 02/21/2024 9:57 AM [facility] Hematocrit 35.8(L) 42.0 - 54.0 % LAB HEMETOLOGY METHOD 02/21/2024 9:57 AM [facility] MCV 82.1 79.0 - 98.0 FL LAB HEMETOLOGY METHOD 02/21/2024 9:57 AM EST [facility] MCH 25.9(L) 27.0 - 32.0 pcg LAB HEMETOLOGY METHOD 02/21/2024 9:57 AM [facility] MCHC 31.6(L) 32.0 - 37.0 g/dL LAB HEMETOLOGY METHOD 02/21/2024 9:57 AM EST [facility] RDW 13.9 11.0 - 15.0 % LAB HEMETOLOGY METHOD 02/21/2024 9:57 AM [facility] Platelets 385 130 - 400 K/mcL LAB HEMETOLOGY METHOD 02/21/2024 9:57 AM [facility] MPV 9.3 7.0 - 11.0 FL LAB HEMETOLOGY METHOD 02/21/2024 9:57 AM EST [facility] NRBC 0.0 <1.0 % LAB HEMETOLOGY METHOD 02/21/2024 9:57 AM [facility] NRBC Absolute 0.00 <0.10 K/mcL LAB HEMETOLOGY METHOD 02/21/2024 9:57 AM [facility] Blood Venous blood specimen / Unknown Venipuncture / Unknown 02/21/2024 5:32 AM EST 02/21/2024 9:14 AM EST us Berry Garcia MD LAB BLOOD ORDERABLES Final Resul t [facility] [address] [place] [address], * (ABNORMAL) Basic metabolic panel (02/21/2024 5:32 AM EST) Only the most recent of6 resultswithin the time period is included. [facility] Sodium 139 133 - 145 mmol/L LAB CHEMISTRY METHOD 02/21/2024 10:07 AM [facility] Potassium 4.3 3.5 - 5.5 mmol/L LAB CHEMISTRY METHOD 02/21/2024 10:07 AM [facility] Chloride 107 96 - 110 mmol/L LAB CHEMISTRY METHOD 02/21/2024 10:07 AM [facility] CO2 26 21 - 32 mmol/L LAB CHEMISTRY METHOD 02/21/2024 10:07 AM [facility] Anion Gap 6 3 - 11 LAB CHEMISTRY METHOD 02/21/2024 10:07 AM [facility] Glucose 86 70 - 100 mg/dL LAB CHEMISTRY METHOD 02/21/2024 10:07 AM [facility] BUN 8 5 - 25 mg/dL LAB CHEMISTRY METHOD 02/21/2024 10:07 AM [facility] Creatinine 0.79 0.70 - 1.30 mg/dL LAB CHEMISTRY METHOD 02/21/2024 10:07 AM [facility] eGFR 118 >=60 mL/min/1. 73m2 LAB CHEMISTRY METHOD 02/21/2024 10:07 AM [facility] Comment:Calculation based on the??Chronic Kidney Disease Epidemiology Collaboration (CKD-EPI) equation refit??without adjustment for race. BUN/Creatinine Ratio 10.1 LAB CHEMISTRY METHOD 02/21/2024 10:07 AM [facility] Calcium 8.3(L) 8.5 - 10.5 mg/dL LAB CHEMISTRY METHOD 02/21/2024 10:07 AM [facility] Blood Venous blood specimen / Unknown Venipuncture / Unknown 02/21/2024 5:32 AM EST 02/21/2024 9:14 AM EST us Berry Garcia MD LAB BLOOD ORDERABLES Final Resul t [facility] [address] [place] [address], * ECG 12 lead (02/01/2024 1:36 PM EST) Pathologist [facility] Ventricular Rate ECG 92 BPM GEMUSE Atrial Rate 92 BPM GEMUSE P-R Interval 136 ms GEMUSE QRS Duration 92 ms GEMUSE Q-T Interval 374 ms GEMUSE QTc 462 ms GEMUSE P Wave [place] 36 degrees GEMUSE R [place] -12 degrees GEMUSE T [place] 6 degrees GEMUSE ECG Interpretation Normal sinus rhythm Nonspecific T wave abnormality Abnormal ECG When compared with ECG of 18-JAN-2024 10:17, No significant change was found Confirmed by Remington CAMPBELL JOHN ([id number]) on 02/02/2024 6:49:38 PM GEMUSE 02/01/2024 1:36 PM EST 02/02/2024 6:49 PM EST Murray Neil MD ECG ORDERABLES Final Result GEMUSE * (ABNORMAL) CBC auto differential (02/01/2024 8:21 AM EST) Only the most recent of3 resultswithin the time period is included. Pathologist [facility] WBC 10.1 4.8 - 10.8 K/mcL LAB HEMETOLOGY METHOD 02/01/2024 9:41 AM [facility] RBC 4.70 4.50 - 5.50 M/mcL LAB HEMETOLOGY METHOD 02/01/2024 9:41 AM [facility] Hemoglobin 12.6(L) 13.5 - 17.5 g/dL LAB HEMETOLOGY METHOD 02/01/2024 9:41 AM [facility] Hematocrit 39.9(L) 42.0 - 54.0 % LAB HEMETOLOGY METHOD 02/01/2024 9:41 AM [facility] MCV 84.7 79.0 - 98.0 FL LAB HEMETOLOGY METHOD 02/01/2024 9:41 AM [facility] MCH 26.8(L) 27.0 - 32.0 pcg LAB HEMETOLOGY METHOD 02/01/2024 9:41 AM [facility] MCHC 31.6(L) 32.0 - 37.0 g/dL LAB HEMETOLOGY METHOD 02/01/2024 9:41 AM [facility] RDW 13.6 11.0 - 15.0 % LAB HEMETOLOGY METHOD 02/01/2024 9:41 AM [facility] Platelets 410(H) 130 - 400 K/mcL LAB HEMETOLOGY METHOD 02/01/2024 9:41 AM [facility] MPV 9.5 7.0 - 11.0 FL LAB HEMETOLOGY METHOD 02/01/2024 9:41 AM [facility] NRBC 0.0 <1.0 % LAB HEMETOLOGY METHOD 02/01/2024 9:41 AM [facility] NRBC Absolute 0.00 <0.10 K/mcL LAB HEMETOLOGY METHOD 02/01/2024 9:41 AM [facility] Neutrophils Relative 69.3 % LAB HEMETOLOGY METHOD 02/01/2024 9:41 AM [facility] Lymphocytes Relative 20.4 % LAB HEMETOLOGY METHOD 02/01/2024 9:41 AM [facility] Monocytes Relative 9.2 % LAB HEMETOLOGY METHOD 02/01/2024 9:41 AM [facility] Eosinophils Relative 0.4 % LAB HEMETOLOGY METHOD 02/01/2024 9:41 AM [facility] Basophils Relative 0.3 % LAB HEMETOLOGY METHOD 02/01/2024 9:41 AM [facility] Immature Granulocytes Relative 0.4 % LAB HEMETOLOGY METHOD 02/01/2024 9:41 AM [facility] Neutrophils Absolute 7.00 1.50 - 7.00 K/[facility] LAB HEMETOLOGY METHOD 02/01/2024 9:41 AM EST [facility] Lymphocytes Absolute 2.06 1.00 - 5.00 K/mcL LAB HEMETOLOGY METHOD 02/01/2024 9:41 AM EST [facility] Monocytes Absolute 0.93 0.20 - 1.00 K/[facility] LAB HEMETOLOGY METHOD 02/01/2024 9:41 AM EST [facility] Eosinophils Absolute 0.04 0.00 - 0.50 K/[facility] LAB HEMETOLOGY METHOD 02/01/2024 9:41 AM EST [facility] Basophils Absolute 0.03 0.00 - 0.20 K/[facility] LAB HEMETOLOGY METHOD 02/01/2024 9:41 AM EST [facility] Immature Granulocytes Absolute 0.04(H) 0.00 - 0.03 K/[facility] LAB HEMETOLOGY METHOD 02/01/2024 9:41 AM EST [facility] Blood Venous blood specimen / Unknown Venipuncture / Unknown 02/01/2024 8:21 AM EST 02/01/2024 9:17 AM EST us Murray Neil MD LAB BLOOD ORDERABLES Final Re sult [facility] [address] [place] [address], * XR Knee 1-2 Views Left (01/31/2024 1:53 PM EST) Only the most recent of2 resultswithin the time period is included. Anatomical Region Laterality Modality Lower Extremities, Knee Left Radio Fl uoroscopy 02/01/2024 7:38 AM EST Narrative 02/01/2024 7:39 AM EST Fluoroscopic spot radiographs obtained during left patellar tendon repair are submitted. No radiologist consultation was requested or provided during this procedure and there is no radiologist professional charge. This report is generated for documentation purposes only. The dose-area product for this procedure was 1624.4 Gy*cm2. PQRI CPT II G9500 -------- FINAL REPORT -------- Dictated By: Maxime Vargas Dictated Date: 02/01/2024 07:38 ET Assigned Physician: Maxime Vargas Reviewed and Electronically Signed By: Maxime Vargas Signed Date: 02/01/2024 07:39 ET Workstation ID: [id number] Transcribed By: Self Edit Transcribed Date: 02/01/2024 07:38 ET Procedure Note Maxime Vargas MD - 02/01/2024 Fluoroscopic spot radiographs obtained during left patellar tendon repairare submitted. No radiologist consultation was requested or providedduring this procedure and there is no radiologist professional charge.This report is generated for documentation purposes only. The dose-area product for this procedure was 1624.4 Gy*cm2. PQRI CPT II G9500 -------- FINAL REPORT -------- Dictated By: Maxime Vargas Dictated Date: 02/01/2024 07:38 ET Assigned Physician: Maxime Vargas Reviewed and Electronically Signed By: Maxime Vargas Signed Date: 02/01/2024 07:39 ET Workstation ID: [id number] Transcribed By: Self Edit Transcribed Date: 02/01/2024 07:38 ET Leann Esquivel MD IMG XR PROCEDURES Final Result * TH AN LMA(NO CHARGE) (01/31/2024 12:49 PM EST) Jamie Gudino CRNA - 01/31/2024 12:49 PM EST Jamie Cummins CRNA ? 01/31/2024 12:50 PM General Information and Staff Patient location during procedure: OR Resident/BOTTLE INSPECTOR: Jamie Cummins CRNA Performed: resident/PATTY/CAA Performed by: Jamie Cummins CRNA Authorized by: Gucci Rodriguez MD ?? Intubation Airway not difficult Urgency: elective Final Airway Details Number of attempts at approach: 1Final airway type: LMA Indications and Patient Condition Indications for airway management: anesthesia Spontaneous Ventilation: absent Sedation level: Yes Preoxygenated: yes Soft Tissue Damage: No Dentition Unchanged: Yes Patient position: sniffing MILS maintained throughout Mask difficulty assessment: 0 - not attempted us Gucci Rodriguez MD ANESTHESIA ORDERABLES Final Re sult * (ABNORMAL) Arterial blood gas (01/29/2024 10:47 AM EST) pH, Arterial 7.43 7.35 - 7.45 pH 01/29/2024 10:57 AM [facility] pCO2, Arterial 41 35 - 45 mmHg 01/29/2024 10:57 AM [facility] pO2, Arterial 102(H) 80 - 100 mmHg 01/29/2024 10:57 AM [facility] HCO3, Arterial 26.9(H) 22.0 - 26.0 mmol/L 01/29/2024 10:57 AM [facility] O2 Sat, Arterial 97.3 95.0 - 98.0 % 01/29/2024 10:57 AM [facility] Base Excess, Arterial 2.6(H) -2.0 - 2.0 mmol/L 01/29/2024 10:57 AM [facility] Domenico Test Pass Pass, Unresponsi ve, Line 01/29/2024 10:57 AM [facility] FIO2 28.00 01/29/2024 10:57 AM [facility] Blood Arterial blood specimen / Unknown Arterial Puncture / Unknown 01/29/2024 10:47 AM EST 01/29/2024 10:52 AM EST us Murray Neil MD LAB BLOOD ORDERABLES Final Re sult [facility] [address] [place] [address], * MR Knee wo Contrast Left (01/28/2024 3:26 PM EST) Anatomical Region Laterality Modality Lower Extremities, Knee Left Magnetic Resonance 01/28/2024 3:36 PM EST Impressions 01/28/2024 3:47 PM EST 1. ??Rupture of the recently repaired patellar tendon. 2. ??Fracture the proximal fibular head. -------- FINAL REPORT -------- Dictated By: Jericho Salguero Dictated Date: 01/28/2024 15:36 ET Assigned Physician: Jericho Salguero Reviewed and Electronically Signed By: Jericho Salguero Signed Date: 01/28/2024 15:47 ET Workstation ID: [id number] Transcribed By: Self Edit Transcribed Date: 01/28/2024 15:36 ET Narrative 01/28/2024 3:47 PM EST MRI right knee without contrast HISTORY: Left knee trauma. ??Ligamentous injury suspected. ??Recent patellar tendon repair. COMPARISON: Knee radiograph January 17 and January 16 TECHNIQUE: Multiple MRI sequences were performed of the right knee without gadolinium. FINDINGS: Bones: Fracture line is noted in the fibular head with associated edema. ??Only minimal displacement is noted. ??Other bones appear within normal limits. ??Postsurgical changes of the patella are noted. Joints: Joint spaces preserved. ??Moderate joint effusion noted. Collateral ligaments: MCL and LCL appear normal Cruciate ligaments: ACL and PCL appear normal. Meniscus: Lateral and medial meniscus appear intact Patella: Discontinuity of the proximal portions of the patellar tendon consistent with rupture. ??Small regions of signal void are noted with in the near the tendon consistent with a history of recent surgical repair. Soft tissues: Soft tissue edema is noted and minimal fluid along the anterior lateral aspect of the knee. ??Evidence of surgical changes along the anterior knee consistent with history of recent patellar tendon repair. Procedure Note Jericho Salguero MD - 01/28/2024 MRI right knee without contrast HISTORY: Left knee trauma. Ligamentous injury suspected. Recent patellartendon repair. COMPARISON: Knee radiograph January 17 and January 16 TECHNIQUE: Multiple MRI sequences were performed of the right knee withoutgadolinium. FINDINGS: Bones: Fracture line is noted in the fibular head with associated edema.Only minimal displacement is noted. Other bones appear within normallimits. Postsurgical changes of the patella are noted. Joints: Joint spaces preserved. Moderate joint effusion noted. Collateral ligaments: MCL and LCL appear normal Cruciate ligaments: ACL and PCL appear normal. Meniscus: Lateral and medial meniscus appear intact Patella: Discontinuity of the proximal portions of the patellar tendonconsistent with rupture. Small regions of signal void are noted with inthe near the tendon consistent with a history of recent surgical repair. Soft tissues: Soft tissue edema is noted and minimal fluid along theanterior lateral aspect of the knee. Evidence of surgical changes alongthe anterior knee consistent with history of recent patellar tendonrepair. IMPRESSION: 1. Rupture of the recently repaired patellar tendon. 2. Fracture the proximal fibular head. -------- FINAL REPORT -------- Dictated By: Jericho Salguero Dictated Date: 01/28/2024 15:36 ET Assigned Physician: Jericho Salguero Reviewed and Electronically Signed By: Jericho Salguero Signed Date: 01/28/2024 15:47 ET Workstation ID: [id number] Transcribed By: Self Edit Transcribed Date: 01/28/2024 15:36 ET Jamel Kaplan MD [facility] MRI PROCEDURES Final Result * (ABNORMAL) Drug abuse screen expanded with reflex confirmation, urine (01/28/2024 11:50 AM EST) Amphetamine Screen, Ur Positive(A ) Negative LAB CHEMISTRY METHOD 4 1:24 PM [facility] Comment:Certain OTC medicati ons containing ephedrine, phenylephrine, pseudoephedrine and phenylpropanolamine can cause false positive results. Barbiturate Screen, Ur Negative Negative LAB CHEMISTRY METHOD 4 1:24 PM [facility] Benzodiazepine Screen, Ur Negative Negative LAB CHEMISTRY METHOD 4 1:24 PM [facility] Cocaine Screen, Ur Negative Negative LAB CHEMISTRY METHOD 4 1:24 PM [facility] Opiate Screen, Ur Negative Negative LAB CHEMISTRY METHOD 4 1:24 PM EST [facility] Cannabinoid (THC) Screen, Ur Negative Negative LAB CHEMISTRY METHOD 4 1:24 PM EST [facility] Comment:Specimens from patie nts taking pantoprazole sodium (Protonix) have been shown to produce false positive results. Fentanyl, Ur Negative Negative LAB CHEMISTRY METHOD 4 1:24 PM EST [facility] Oxycodone Screen, Ur Positive(A ) Negative LAB CHEMISTRY METHOD 4 1:24 PM EST [facility] Urine Urine specimen obtained by clean catch procedure / Unknown Non-blood Collection / Unknown 01/28/2024 11:50 AM EST 01/28/2024 12:45 PM EST Narrative [facility] - 01/28/2024 1:24 PM EST Assay cutoffs: Amphetamines ? 1000 ng/mL Barbiturates ?200 ng/mL Benzodiazepines ?? 200 ng/mL Cocaine ? 300 ng/mL Fentanyl ?1 ng/mL Opiates ? 300 ng/mL Oxycodone ? 100 ng/mL THC ?50 ng/mL Semi-quantitative assay for screening purposes only. Unconfirmed screening result should not be used for non-medical purposes. *POSITIVE RESULTS ARE AUTOMATICALLY SENT FOR ALTERNATE METHOD CONFIRMATION* us Lupe SCHWARZ LAB URINE ORDERABLES Final Result [facility] [address] [place] [address], * Opiates confirmation, urine (01/28/2024 11:50 AM EST) Morphine Confirm, Urine Negative ng/mL 01/31/2024 6:24 PM EST [facility] Codeine Confirm, Urine Negative ng/mL 01/31/2024 6:24 PM EST [facility] Hydrocodone Confirm, Urine Negative ng/mL 01/31/2024 6:24 PM EST [facility] Hydromorphone Confirm, Urine Negative ng/mL 01/31/2024 6:24 PM EST [facility] Oxycodone Confirm, Urine 475 ng/mL 01/31/2024 6:24 PM EST [facility] Oxymorphone Confirm, Urine 663 ng/mL 01/31/2024 6:24 PM EST [facility] Creatinine 133 20 - 250 mg/dL 01/31/2024 6:24 PM EST [facility] Adulterants Negative 01/31/2024 6:24 PM EST [facility] Comment: ? Confirmation (LC/MS/MS) Decision Limits ?Morphine ?25 ng/mL ?Codeine ? 25 ng/mL ?Hydrocodone ? 25 ng/mL ?Hydromorphone ? 25 ng/mL ?Oxycodone ? 25 ng/mL ?Oxymorphone ? 25 ng/mL ?Adulterant Decision Limit: ? General Oxidants ? 200 ug/mL ?The adulterant assay tests for General Oxidants, ??including Chromates and Nitrites. ??Adulterants are ??substances either ingested or added directly to a ??urine specimen to prevent the detection of drug use. If applicable, any drug confirmation testing reported here was developed and the performance characteristics determined by [facility]. This confirmation testing has not been cleared or approved by the FDA. The laboratory is regulated under CLIA as qualified to perform high-complexity testing. This test is used for patient testing purposes. It should not be regarded as investigational or for research. Test performed at [facility], [address] , [place], [place] ??[address] ? [phone] Sally Rhodes MD, PhD - Senior Sales Executive Urine Urine specimen obtained by clean catch procedure / Unknown Non-blood Collection / Unknown 01/28/2024 11:50 AM EST 01/28/2024 1:24 PM EST Lupe SCHWARZ LAB URINE ORDERABLES Final Result Performing Organization Address City/State/[facility] Co de Phone Number [facility] [address] [place] [address] * Amphetamines, urine quantitative (01/28/2024 11:50 AM EST) [facility] Amphetamine 1238 ng/mL 02/01/2024 7:44 AM EST [facility] Comment: ? Methamphetamine and amphetamine (a metabolite of ? methamphetamine) can be present in urine through ? ingestion of legal drugs. ??Please contact laboratory ? if more information is needed. Analysis for ? (d) vs (l)-isomers is possible and may help clarify ? Interpretation in some cases. Methamphetamine Confirm Urine Negative ng/mL 02/01/2024 7:44 AM EST [facility] MDA Confirm, Urine Negative ng/mL 2023 7:44 AM EST [facility] MDMA Confirm, Urine Negative ng/mL 01/31 7:44 AM EST [facility] MDEA Confirm, Urine Negative ng/mL 01/31 7:44 AM EST [facility] Urine Creatinine 131 20 - 250 mg/dL 02/01/2024 7:44 AM EST [facility] Adulterants Negative 02/01/2024 7:44 AM EST [facility] Comment: ? Confirmation (GC/MS) Decision Limits ?Amphetamine ? 100 ng/mL ??Methamphetamine ? 100 ng/mL ?MDA ? 100 ng/mL ??MDMA ?100 ng/mL ??MDEA ?100 ng/mL ??Adulterant Decision Limit: ? General Oxidants ? 200 ug/mL ?The adulterant assay tests for General Oxidants, ??including Chromates and Nitrites. ??Adulterants are ??substances either ingested or added directly to a ??urine specimen to prevent the detection of drug use. If applicable, any drug confirmation testing reported here was developed and the performance characteristics determined by [facility]. This confirmation testing has not been cleared or approved by the FDA. The laboratory is regulated under CLIA as qualified to perform high-complexity testing. This test is used for patient testing purposes. It should not be regarded as investigational or for research. Test performed at [facility], [facility] [place], [place] ??[address] ? [phone] Sally Rhodes MD, PhD - Senior Sales Executive Urine Urine specimen obtained by clean catch procedure / Unknown Non-blood Collection / Unknown 01/28/2024 11:50 AM EST 01/28/2024 1:24 PM EST Lupe SCHWARZ LAB URINE ORDERABLES Final Result J[facility] NORMAN [address] [place] [address] * Thyroid stimulating hormone with reflex to free t4 and free t3 (01/28/2024 5:57 AM EST) TSH 1.76 0.40 - 4.00 mcIU/mL LAB CHEMISTRY METHOD 01/28/2024 6:54 AM EST [facility] Blood Venous blood specimen / Unknown Venipuncture / Unknown 01/28/2024 5:57 AM EST 01/28/2024 6:03 AM EST us Jamel Kaplan MD LAB BLOOD ORDERABLES Final Resu lt Performing Organization Address [facility] Co de Phone Number [facility] [address] [place] [address], [place] [phone] * Phosphorus (01/28/2024 5:57 AM EST) Phosphorus 4.3 2.5 - 4.5 mg/dL LAB CHEMISTRY METHOD 01/28/2024 6:42 AM EST [facility] Blood Venous blood specimen / Unknown Venipuncture / Unknown 01/28/2024 5:57 AM EST 01/28/2024 6:03 AM EST us Jamel Kaplan MD LAB BLOOD ORDERABLES Final Resu lt Performing Organization Address City/[facility]/ZIP Co de Phone Number [facility] [address] [place] [address], [place] [phone] * Magnesium (01/28/2024 5:57 AM EST) Magnesium 2.2 1.9 - 2.6 mg/dL LAB CHEMISTRY METHOD 01/28/2024 6:42 AM EST [facility] Blood Venous blood specimen / Unknown Venipuncture / Unknown 01/28/2024 5:57 AM EST 01/28/2024 6:03 AM EST us Jamel Kaplan MD LAB BLOOD ORDERABLES Final Resu lt [facility] [address] [place] [address], [place] [phone] * (ABNORMAL) Hemoglobin A1c (01/28/2024 5:57 AM EST) Pathologist [facility] Hemoglobin A1C 6.9(H) <6.5 % LAB CHEMISTRY METHOD 01/28/2024 8:19 AM EST [facility] Mean Bld Glu Estim. 151 mg/dL LAB CHEMISTRY METHOD 01/28/2024 8:19 AM EST [facility] Blood Venous blood specimen / Unknown Venipuncture / Unknown 01/28/2024 5:57 AM EST 01/28/2024 6:04 AM EST us Jamel Kaplan MD LAB BLOOD ORDERABLES Final Resu lt [facility] [address] [place] [address], [place] [phone] * (ABNORMAL) Hepatic function panel (01/28/2024 5:57 AM EST) Total Protein 6.5 6.0 - 8.0 g/dL LAB CHEMISTRY METHOD 01/28/2024 12:23 PM [facility] Albumin 3.0(L) 3.2 - 5.0 g/dL LAB CHEMISTRY METHOD 01/28/2024 12:23 PM [facility] Total Bilirubin 0.4 0.0 - 1.4 mg/dL LAB CHEMISTRY METHOD 01/28/2024 12:23 PM [facility] Bilirubin, Direct 0.1 0.0 - 0.3 mg/dL LAB CHEMISTRY METHOD 01/28/2024 12:23 PM EST [facility] Bilirubin, Indirect 0.3 0.0 - 1.1 mg/dL LAB CHEMISTRY METHOD 01/28/2024 12:23 PM EST [facility] ALT (SGPT) 44 10 - 60 unit/L LAB CHEMISTRY METHOD 01/28/2024 12:23 PM [facility] AST (SGOT) 26 10 - 42 unit/L LAB CHEMISTRY METHOD 01/28/2024 12:23 PM EST [facility] Alkaline Phosphatase 72 42 - 121 unit/L LAB CHEMISTRY METHOD 01/28/2024 12:23 PM EST [facility] Blood Venous blood specimen / Unknown Venipuncture / Unknown 01/28/2024 5:57 AM EST 01/28/2024 6:03 AM EST Lupe SCHWARZ LAB BLOOD ORDERABLES Final Result Performing Organization Address [facility]/ZIP Co de Phone Number [facility] [address] [place] [address], [place] [phone] * (ABNORMAL) Ammonia (01/27/2024 8:05 PM EST) Ammonia 58(H) 11 - 35 mcmol/L LAB CHEMISTRY METHOD 01/27/2024 8:31 PM EST [facility] Blood Venous blood specimen / Unknown Venipuncture / Unknown 01/27/2024 8:05 PM EST 01/27/2024 8:10 PM EST Jamel Kaplan MD LAB BLOOD ORDERABLES Final Resu lt Performing Organization Address [facility]/ZIP Co de Phone Number [facility] [address] [place] [address], [place] [phone] * Potassium (01/18/2024 1:51 PM EST) Potassium 4.3 3.5 - 5.5 mmol/L LAB CHEMISTRY METHOD 01/18/2024 2:32 PM EST [facility] Blood Venous blood specimen / Unknown Venipuncture / Unknown 01/18/2024 1:51 PM EST 01/18/2024 2:05 PM EST us Mitchell Monge MD LAB BLOOD ORDERABLES Final Res ult [facility] [address] [place] [address], [place] [phone] * TH AN ENDOTRACHEAL(NO CHARGE) (01/18/2024 11:08 AM EST) Narrative Fifi Redmond CRNA - 01/18/2024 11:08 AM EST Fifi Redmond CRNA ? 01/18/2024 11:12 AM General Information and Staff Patient location during procedure: OR Anesthesiologist: Mitchell Monge MD Resident/BOTTLE INSPECTOR: Fifi Redmond CRNA Performed: resident/BOTTLE INSPECTOR/CAA Performed by: Fifi Redmond CRNA Authorized by: Mitchell Monge MD ?? Intubation Airway not difficult Urgency: elective Final Airway Details Successful airway: ETT Cuffed: yes Successful intubation technique: video laryngoscopy Facilitating devices/methods: intubating stylet and OPA Endotracheal tube insertion site: oral Blade size: #4 ETT size (mm): 7.5 Cormack-Lehane Classification: grade I - full view of glottis Placement verified by: chest auscultation and capnometry Measured from: teeth ETT to teeth (cm): 22 Number of attempts at approach: 1Final airway type: endotracheal airway Indications and Patient Condition Indications for airway management: anesthesia Start Time: 01/18/2024 10:37 AMStop Time: 01/18/2024 10:38 AM us Mitchell Monge MD ANESTHESIA ORDERABLES Final Re sult * ECG 12 lead - Procedural (No Charge) (01/18/2024 10:17 AM EST) Ventricular Rate ECG 95 BPM GEMUSE Atrial Rate 95 BPM GEMUSE P-R Interval 138 ms GEMUSE QRS Duration 88 ms GEMUSE Q-T Interval 362 ms GEMUSE QTc 454 ms GEMUSE P Wave [place] 63 degrees GEMUSE R [place] -7 degrees GEMUSE T [place] 12 degrees GEMUSE ECG Interpretation Normal sinus rhythm Nonspecific T wave abnormality Abnormal ECG When compared with ECG of 17-OCT-2023 02:07, Nonspecific T wave abnormality, worse in Inferior leads Confirmed by MD Pruitt Christopher ([id number]) on 01/19/2024 6:57:13 AM GEMUSE 01/18/2024 10:1 7 AM EST 01/19/2024 6:57 AM EST us Mitchell Monge MD ECG ORDERABLES Final Result GEMUSE * XR Knee 4+ Views Left (01/17/2024 7:50 AM EST) Anatomical Region Laterality Modality Lower Extremities, Knee Left Radiogra phic Imaging 01/17/2024 8:14 AM EST Impressions 01/17/2024 8:15 AM EST FINDINGS/IMPRESSION: Soft tissue swelling anterior to the knee with high riding patella raising the possibility of patellar tendon rupture. ??MRI could further evaluate. ??No acute fracture. ??Joint spaces are preserved. -------- FINAL REPORT -------- Dictated By: HARSHAD STARK Dictated Date: 01/17/2024 08:14 ET Assigned Physician: HARSHAD STARK Reviewed and Electronically Signed By: HARSHAD STARK Signed Date: 01/17/2024 08:15 ET Workstation ID: [id number] Transcribed By: Self Edit Transcribed Date: 01/17/2024 08:14 ET Narrative 01/17/2024 8:15 AM EST XR KNEE 4+ VIEWS LEFT INDICATION: ??Pain TECHNIQUE: XR KNEE 4+ VIEWS LEFT COMPARISON: No priors available. Procedure Note Harshad Stark MD - 01/17/2024 XR KNEE 4+ VIEWS LEFT INDICATION: Pain TECHNIQUE: XR KNEE 4+ VIEWS LEFT COMPARISON: No priors available. IMPRESSION: FINDINGS/IMPRESSION: Soft tissue swelling anterior to the knee with highriding patella raising the possibility of patellar tendon rupture. MRIcould further evaluate. No acute fracture. Joint spaces are preserved. -------- FINAL REPORT -------- Dictated By: HARSHAD STARK Dictated Date: 01/17/2024 08:14 ET Assigned Physician: HARSHAD STARK Reviewed and Electronically Signed By: HARSHAD STARK Signed Date: 01/17/2024 08:15 ET Workstation ID: [id number] Transcribed By: Self Edit Transcribed Date: 01/17/2024 08:14 ET us Rudy Ruiz MD IMG XR PROCEDURES Final R esult * Lipase (01/17/2024 2:22 AM EST) Pathologist [facility] Lipase 25 13 - 75 unit/L LAB CHEMISTRY METHOD 01/17/2024 2:51 AM [facility] Blood Venous blood specimen / Unknown Venipuncture / Unknown 01/17/2024 2:22 AM EST 01/17/2024 2:28 AM EST us Ilya Westbrook MD LAB BLOOD ORDERABLES Final Resu lt [facility] [address] [place] [address], [place] [phone] * (ABNORMAL) Comprehensive metabolic panel (01/17/2024 2:22 AM EST) [facility] Sodium 141 133 - 145 mmol/L LAB CHEMISTRY METHOD 01/17/2024 2:51 AM EST [facility] Potassium 3.9 3.5 - 5.5 mmol/L LAB CHEMISTRY METHOD 01/17/2024 2:51 AM [facility] Chloride 111(H) 96 - 110 mmol/L LAB CHEMISTRY METHOD 01/17/2024 2:51 AM [facility] CO2 23 21 - 32 mmol/L LAB CHEMISTRY METHOD 01/17/2024 2:51 AM EST [facility] Anion Gap 7 3 - 11 LAB CHEMISTRY METHOD 01/17/2024 2:51 AM [facility] Glucose 118(H) 70 - 100 mg/dL LAB CHEMISTRY METHOD 01/17/2024 2:51 AM [facility] BUN 11 5 - 25 mg/dL LAB CHEMISTRY METHOD 01/17/2024 2:51 AM [facility] Creatinine 0.83 0.70 - 1.30 mg/dL LAB CHEMISTRY METHOD 01/17/2024 2:51 AM [facility] eGFR 116 >=60 mL/min/1. 73m2 LAB CHEMISTRY METHOD 01/17/2024 2:51 AM [facility] Comment:Calculation based on the??Chronic Kidney Disease Epidemiology Collaboration (CKD-EPI) equation refit??without adjustment for race. BUN/Creatinine Ratio 13.3 LAB CHEMISTRY METHOD 01/17/2024 2:51 AM [facility] Calcium 8.9 8.5 - 10.5 mg/dL LAB CHEMISTRY METHOD 01/17/2024 2:51 AM [facility] AST (SGOT) 54(H) 10 - 42 unit/L LAB CHEMISTRY METHOD 01/17/2024 2:51 AM [facility] ALT (SGPT) 77(H) 10 - 60 unit/L LAB CHEMISTRY METHOD 01/17/2024 2:51 AM [facility] Alkaline Phosphatase 72 42 - 121 unit/L LAB CHEMISTRY METHOD 01/17/2024 2:51 AM [facility] Total Protein 7.0 6.0 - 8.0 g/dL LAB CHEMISTRY METHOD 01/17/2024 2:51 AM [facility] Albumin 3.5 3.2 - 5.0 g/dL LAB CHEMISTRY METHOD 01/17/2024 2:51 AM [facility] Total Bilirubin 0.4 0.0 - 1.4 mg/dL LAB CHEMISTRY METHOD 01/17/2024 2:51 AM [facility] Blood Venous blood specimen / Unknown Venipuncture / Unknown 01/17/2024 2:22 AM EST 01/17/2024 2:28 AM EST us Ilya [place] MD LAB BLOOD ORDERABLES Final Resu lt [facility] [address] [place] [address], from Last 3 Months Insurance [facility] Member Subscriber Plan / Payer (Ef fective 2021-Present) Name:Danielle Villar Relation to Subscriber:Self Name:VillarDanielle Payer ID:[id number] Group ID:[id number] Type:Not on file Address: [place] [address] [address] [phone] Advance Directives Documents on File Type Date Recorded 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 Do not modify or discontinue any currently active code status orders. * Full Code - Default Date Activated Date Inactivated Comments 01/17/2024 10:44 AM 01/18/2024 12:55 PM This is or dylan is used when code status has not been discussed with the patient, or code status is otherwise unknown/unconfirmed To update the patient's code status, place a code status order. Do not modify or discontinue any currently active code status orders. Care Teams Workforce Management Consultant Relationship Specialty Start Date End Date Livan Rosales MD [address] [place] [address] [address] GRISELDA Moore PCP - General Internal Medicine 01/17/24
--- OUTSIDE RECORDS SUMMARY | 2024-03-26 12:16 | XMS_ITS ---
Author Organization [facility] Address Unknown Allergies, Adverse Reactions, Alerts Substance Reaction Status Noted Date Resolved Date Pineapple active 02/08/2024 Cat dandylan active 02/08/2024 Medications Medication Dose Frequency Directions Start Date End Hadley e Sertraline HCl Oral Tablet 50 MG 1 {tbl} Give 1 tablet by lili th at bedtime for Increased Anxiety 02/08/2024 03/06/2024 Fleet Enema Enema 7-19 GM/118ML 1 Insert 1 unit rectal ly every 24 hours as needed for Constipation Use only if Bisacodyl Suppository is ineffective 02/08/2024 03/06/2024 Gabapentin Oral Capsule 100 MG 2 {Capsule} 12 h Give 2 capsule by mouth two times a day for pain 02/07/2024 03/06/2024 Bisacodyl Suppository 10 MG 1 Insert 1 suppository rectally every 24 hours as needed for constipation Use if Senna is Ineffective 02/08/2024 03/06/2024 Senna Tablet 8.6 MG 1 {tbl} Give 1 t ablet by mouth every 24 hours as needed for Constipation 02/08/2024 03/06/2024 Metamucil 4 in 1 Fiber Oral Packet 3.4 24 h Give 3.4 gram by lili th one time a day for Constipation Give 2 hours apart from other oral medications 02/07/2024 03/06/2024 Senna Tablet 8.6 MG 2 {tbl} Give 2 t ablet by mouth every 12 hours as needed for constipation 02/07/2024 03/06/2024 oxyCODONE HCl Oral Tablet 5 MG 1 {tbl} Give 1 tablet by lili th every 4 hours as needed for moderate pain DO NOT EXCEED 30mg daily-hold for sedation 02/07/2024 03/06/2024 oxyCODONE HCl Oral Tablet 10 MG 1 {tbl} Give 1 tablet by lili th every 4 hours as needed for severe pain DO NOT EXCEED 30mg daily-hold for sedation 02/07/2024 03/06/2024 Aspirin EC Tablet Delayed Release 81 MG 1 {tbl} 12 h Give 1 tablet by lili th two times a day for pain Take with full glass of water, do not crush. Monitor for bleeding, bruising, and black tarry stools. Give with food to minimize GI irritation 02/07/2024 03/06/2024 Adderall Oral Tablet 15 MG 30 mg 24 h Give 30 mg by mouth one time a day for ADHD take 30 mg along with 5 mg for total dose of 35 mg 02/20/2024 03/06/2024 Adderall Oral Tablet 5 MG 5 mg 24 h Give 5 mg by mouth o ne time a day for ADHD take 5 mg along with 30 mg for total dose of 35 mg 02/20/2024 03/06/2024 Ambien Oral Tablet 5 MG 5 mg Give 5 mg by mouth a s needed for for sleep as needed at Bedtime until 03/04/2024 23:59 02/20/2024 03/05/2024 EPINEPHrine Solution Prefilled Syringe 0.3 MG/0.3ML 0.3 mL Inject 0.3 ml intramuscularly as needed for Anaphylaxis, Loss of consciousness Repeat one time in 3 to 5 minutes. 03/04/2024 03/06/2024 Ambien Oral Tablet 5 MG 1 {tbl} Give 1 tablet by lili th one time only for Insomnia until 03/05/2024 22:14 at bedtime prn 03/06/2024 03/06/2024 Medications Administered Medication Dose Frequency Status Start Date End Date Sertraline HCl Oral Tablet 50 MG 1 {tbl} 03/06/2024 Fleet Enema Enema 7-19 GM/118ML 1 02/08/2024 Gabapentin Oral Capsule 100 MG 2 {Capsule} 12 h 03/06/2024 Bisacodyl Suppository 10 MG 1 Senna Tablet 8.6 MG 1 {tbl} 02/08/2024 Metamucil 4 in 1 Fiber Oral Packet 3.4 24 h 03/06/2024 Senna Tablet 8.6 MG 2 {tbl} 02/19/2024 oxyCODONE HCl Oral Tablet 5 MG 1 {tbl} 03/02/2024 oxyCODONE HCl Oral Tablet 10 MG 1 {tbl} 03/06/2024 Aspirin EC Tablet Delayed Re lease 81 MG 1 {tbl} 12 h 03/06/2024 Adderall Oral Tablet 15 MG 30 mg 24 h Adderall Oral Tablet 5 MG 5 mg 24 h 02/14 Ambien Oral Tablet 5 MG 5 mg 2024 EPINEPHrine Solution Prefill ed Syringe 0.3 MG/0.3ML 0.3 mL 03/04/2024 Ambien Oral Tablet 5 MG 1 {tbl} 2024 Problems Problem Status Start Date End Date SPONTANEOUS RUPTURE OF EXTEN SOR TENDONS, LEFT LOWER LEG (Primary) (M66.262 - ICD-10-CM) ACTIVE 02/06/2024 UNSPECIFIED FALL, SUBSEQUENT ENCOUNTER (W19.XXXD - ICD-10-CM) ACTIVE 02/06/2024 OTHER FRACTURE OF UPPER AND LOWER END OF RIGHT FIBULA, SUBSEQUENT ENCOUNTER FOR CLOSED FRACTURE WITH ROUTINE HEALING (S82.831D - ICD-10-CM) ACTIVE 02/06/2024 ANXIETY DISORDER, UNSPECIFIED (F41.9 - ICD-10-CM) ACTI VE 02/06/2024 SPONTANEOUS RUPTURE OF OTHER TENDONS, LEFT LOWER LEG (M66.862 - ICD-10-CM) ACTIVE 02/06/2024 MUSCLE WEAKNESS (GENERALIZED) (M62.81 - ICD-10-CM) ACT BEE 02/06/2024 UNSTEADINESS ON FEET (R26.81 - ICD-10-CM) ACTIVE 02/06/2024 DIFFICULTY IN WALKING, NOT E LSEWHERE CLASSIFIED (R26.2 - ICD-10-CM) ACTIVE 02/06/2024 MORBID (SEVERE) OBESITY DUE TO EXCESS CALORIES (E66.01 - ICD-10-CM) ACTIVE 02/06/2024 Encounters Encounter Performer Performer Role Encounter Diagnoses Location Date Discharge - Discharged to home or self care - Home (Agency Unknown) - Private home/apt. with home health services [facility] 02/06/2024 08:01 pm EST - 03/06/2024 11:26 am EST Immunizations Vaccine Date Influenza 10/11/2023 12:00 am EDT TB 2 Step Mantoux Skin Test 02/08/2024 1 2:00 pm EST RSV, bivalent, protein subunit RSVpreF, diluent rec Social History Vital Signs Vital Sign Reading Time Taken temperature 96.9 [degF] 03/06/2024 10:36 am EST temperature 97.2 [degF] 03/06/2024 04:41 am EST temperature 98.1 [degF] 03/05/2024 06:03 am EST temperature 98.1 [degF] 03/04/2024 06:23 am EST temperature 98.1 [degF] 03/04/2024 01:25 am EST temperature 97.3 [degF] 03/03/2024 01:31 am EST heartrate 107 /min 03/06/2024 10:35 am EST heartrate 107 /min 03/06/2024 08:30 am EST heartrate 88 /min 03/06/2024 04:41 am EST heartrate 102 /min 03/05/2024 08:43 am EST heartrate 92 /min 03/05/2024 06:03 am EST heartrate 112 /min 03/04/2024 08:18 am EST heartrate 100 /min 03/04/2024 06:23 am EST heartrate 110 /min 03/04/2024 01:25 am EST heartrate 107 /min 03/03/2024 08:59 am EST heartrate 98 /min 03/03/2024 01:31 am EST systolicValue 90 mm[Hg] 03/06/2024 10:35 am EST diastolicValue 62 mm[Hg] 03/06/2024 10:35 am EST systolicValue 105 mm[Hg] 03/06/2024 04:41 am EST diastolicValue 68 mm[Hg] 03/06/2024 04:41 am EST systolicValue 112 mm[Hg] 03/05/2024 06:03 am EST diastolicValue 70 mm[Hg] 03/05/2024 06:03 am EST systolicValue 110 mm[Hg] 03/04/2024 06:23 am EST diastolicValue 63 mm[Hg] 03/04/2024 06:23 am EST systolicValue 110 mm[Hg] 03/04/2024 01:25 am EST diastolicValue 63 mm[Hg] 03/04/2024 01:25 am EST systolicValue 130 mm[Hg] 03/03/2024 01:31 am EST diastolicValue 78 mm[Hg] 03/03/2024 01:31 am EST painLevel 10 {score} 03/06/2024 09:46 am EST painLevel 2 {score} 03/06/2024 04:42 am EST painLevel 9 {score} 03/06/2024 03:38 am EST painLevel 0 {score} 03/05/2024 11:06 pm EST painLevel 0 {score} 03/05/2024 03:37 pm EST painLevel 0 {score} 03/05/2024 11:23 am EST painLevel 0 {score} 03/04/2024 11:36 pm EST painLevel 2 {score} 03/04/2024 07:51 pm EST painLevel 7 {score} 03/04/2024 06:05 pm EST painLevel 7 {score} 03/04/2024 06:05 pm EST painLevel 3 {score} 03/04/2024 09:53 am EST painLevel 7 {score} 03/04/2024 01:34 am EST painLevel 0 {score} 03/03/2024 11:52 pm EST painLevel 0 {score} 03/03/2024 10:07 pm EST painLevel 6 {score} 03/03/2024 09:17 am EST painLevel 0 {score} 03/02/2024 11:26 pm EST painLevel 0 {score} 03/02/2024 07:39 pm EST oxygenSaturation 100 % 03/06/2024 04:4 1 am EST oxygenSaturation 95 % 03/05/2024 06:0 3 am EST oxygenSaturation 96 % 03/04/2024 06:2 3 am EST oxygenSaturation 96 % 03/04/2024 01:2 5 am EST oxygenSaturation 95 % 03/03/2024 01:3 1 am EST respirations 16 /min 03/06/2024 04:41 am EST respirations 18 /min 03/05/2024 06:03 am EST respirations 20 /min 03/04/2024 06:23 am EST respirations 20 /min 03/04/2024 01:25 am EST respirations 18 /min 03/03/2024 01:31 am EST
--- OUTSIDE RECORDS SUMMARY | 2024-03-26 12:17 | XMS_ITS | Continuity of Care Document ---
Author Organization [facility] Address [address] [address] Care Team Providers Care Solution Design Engineer Name Role Phone [facility] OTHER Assessment No assessment recorded. Plan [...] Details Recorded Time Left patellar tendon rupture [id number] 9100 Active [address] [address], [address], [place], [address], [facility] [employer] [facility] 5 05:39:03 Acute pain 538911151 Active 2024 [facility] [address], [address], [place], [address], [facility] [employer] [facility] 5 05:39:18 Fracture of upper end of fibula 53771019 Active 2024 [facility] [address], [address], [place], [address], [facility] [employer] [facility] 5 05:40:07 Anxiety 56995921 Active 2024 [facility] [address], [address], [place], [address], [facility] [employer] [facility] 5 05:40:50 Attention deficit hyperactivi ty disorder 070267424 Active 2024 [facility] [address], [address], [place], [address], [facility] [employer] 5 05:40:57 Tachycardia 3761013 Active 2024 [facility] [address] [facility], [address], [place], [address], [facility] 5 05:41:05 Asthenia 54372877 Active 2024 [facility] [address] [facility], [facility] [address], [place], [address], [facility] 5 05:42:19 Obstructive sleep apnea syndrome 66444660 Active 2024 [facility] [address] [facility], [facility] [address], [place], [address], [facility] [employer] [facility] 5 05:42:29 Problem Notes None recorded. Medical [...] 71 mm[Hg] GENET WHITE NP [address] [facility], [facility] [address], [place], [address], [facility] [employer] 5 14:20:45 Social History None recorded. Functional Status None recorded. Mental Status None recorded. Family History Nothing Reported. Medical History No medical history recorded. Gynecological HistoryNo gynecological history recorded. Obstetrics History GPAL:G 0 P 0 0 0 0 Past Encounters Encounter ID Performer Location Encounter Start Date Encounter Closed Date Diagnosis/Indication Diagnosis SNOMED-CT Code Diagnosis ICD10 Code Diagnosis Note [id number] [place] [address] 02/20/2024 11:22:09 02/21/2024 12:21:51 Fracture of upper end of fibula 52456600 S89.D Left patellar tendon rupture requiring revision and placement of external fixator by Dr. Esquivel.Nonw eightbeari ng left lower extremityc ontinue to use walker or crutches for ambulation .continue oxycodone 5-10 mg q4h prncontinu e gabapentin 200 mg bidasa 81 mg bid x 3 moscontinu e PT Ara/up with orthopedic surgery as planned Left bowser lar tendon rupture [id number] 7762076 S76.112D see above Acute pain 896398622 R52 see pain med plan abovemonit or painmonito r utilizatio n of narcs and wean as tolerated Asthenia 38787486 R53.1 continue PT OTindepend ent at baseline Tachycardia 8132831 R00. 0 tachycardi c 150s with [id number] -130s at restdrinki ng a monster and on adderall (see HPI)check HR prior to adderall administra tionwill obtain an ECG to make sure hes not in afibmonito r vitals qshift x 3 days Obstructiv e sleep apnea syndrome 42886238 G47.33 not on CPAPshould have outpatient sleep study Attention deficit hyperactivity disorder 867538366 F90.9 continue adderall 35 mg dailymonit or HR prior to giving med Anxiety 92646512 F41.9 continue sertraline 50 mg qhscontinu e ambien 5 mg qhs prn for sleeprefus ed psych eval with [employer] [id number] GENET WHITE NP [facility] [address] [place] [address] 02/26/2024 14:20:03 02/28/2024 08:26:45 Fracture of upper end of fibula 22596823 S89.202D Left patellar tendon rupture requiring revision [...] go home. Left bowser lar tendon rupture [id number] 3987283 S76.112D see above Acute pain 059936824 R52 Pain controlled - continue APAP, gabapentin , and oxycodone. monitor pain, adjust meds as needed.mon itor utilizatio n of narcs and wean as tolerated Asthenia 26966688 R53.1 continue PT OTindepend ent at baseline Tachycardia 7977888 R00. 0 Monitor HR, check prior to adderall use daily.Avoi d caffeine - encouraged pt. to drink decaf coffee and avoid other drinks with high caffeine levels Check with nsg. re: EKG results Obstructiv e sleep apnea syndrome 64559080 G47.33 not on CPAPshould have outpatient sleep study Attention deficit hyperactivity disorder 978559311 F90.9 continue adderall 35 mg dailymonit or HR prior to giving med Anxiety 99681390 F41.9 continue sertraline 50 mg qhscontinu e ambien 5 mg qhs prn for sleeprefus ed psych eval with [facility] Health Concerns Section Related Observation LastModified by Organization Detai ls LastModified Time None Recorded Concern Status LastModified by Organization Details LastModified Time None Recorded Payers Encounter Date Sequence Insurance Name Policy Number Policy Steve Covered Member ID Steve Member ID Guarantor Name 02/26/2024 1 [facility] - DOS ON OR AFTER 2022 - MEDICARE [place]VANTAGE [place] (MEDICARE REPLACEMENT/ADV ANTAGE - PPO) Danielle Villar [id number] Danielle Villar Notes Date Note Type Note Provider Name and Address Organization Details Recorded Time 02/26/2024 text/html Danielle is seen tod ay [...] Pain is currently tolerable, offers no other complaints.Tachycjonn doe discussed, says he only had one Monster drink today and 1 cup of coffee.VSS, apical HR today 104.Labs stable. PMH obesity, OSMAR, anxiety GENET WHITE NP [address] [place] [address], [address], [place], [address], [facility] [employer] 02/26/2024 14:45:59 OBGyn Episode No OBEpisode recorded.
--- OUTSIDE RECORDS SUMMARY | 2024-03-26 12:17 | XMS_ITS | Clinical Summary ---
Author Organization [facility] Address [address] [place] [address] Phone Care Team Providers Care Production Supv Name Role Phone Livan Rosales Primary Care Provider [phone] [facility] Unavailable [phone] Reason for Visit and Chief Complaint Post Op Visit/Follow Up Plan of Treatment Pending Tests Order Diagnosis Results Due Ordering P rovider Follow Up - Appointment 1 Month Unsp fra cture of left patella, init for clos fx 02/15/24 Elie Ruiz MD Last Documented On 5 10:45AM ; [facility] Future Appointments Date Time Location Provi dylan Post Op Visit/Follow Up 04/01/2024 10:20AM [facility] Leann Esquivel MD Last Documented On 5 1:25PM ; [facility]/Follow Up 04/16/2024 9:00AM [facility] Wei Duckworth MD Last Documented On 5 9:19AM ; [facility] Assessments Includes: Assessments from this encounter No Assessments Recorded Medical Equipment - Implanted Devices Includes: Current Devices No Medical Equipment Recorded Medications Administered Includes: Administered Medications from this encounter No Administered Medications Recorded Results Includes: Results discussed during this encounter No Results Recorded For Specified Dates History of Present Illness Includes: History of Present Illness from this encounter No History of Present Illness Recorded Social History No Social History Recorded - Smoking Status Unknown Medical History Includes: Medical History addressed during this encounter No Medical History Recorded Family History Includes: Family History addressed during this encounter No Family History Recorded Review of Systems Includes: Review of Systems from this encounter Status post left patellar tendon rupture with surgery on 01/17 and then subsequent revision surgery on 01/30 Noncompliant patient with a left patella tendon rupture who did not follow instructions after initial surgery on 01/18/2024 who presents today for follow-up after his more recent revision surgery. He is at a nursing facility. He was Ex- Fix to keep his leg straight. Per nursing And physical therapy documentation he has been noncompliant and has been putting weight on his leg even though he was told not to. Seen today with the medical records analyst in the room. States the pain is improved. States there is no numbness or tingling. Physical examination Karlee in position. Wound healing well. No signs of infection or drainage. Pin sites are healthy and clean. Warm well-perfused toes. Able to wiggle his toes and his ankle. Sensation intact light touch in his foot. Assessment and plan Continue nonweightbearing left lower extremity. Karlee removed. Steri-Strips placed. Pin sites cleaned and covered. Follow-up in 4 weeks. Discussed that he will likely be Ex-Fix in a straight leg position for another 2 months.Spent over 20 minutes today in the office with him discussing that he needs to follow instructions and be compliant Mental Status Includes: Mental Status from this encounter No Mental Status Recorded Functional Status Includes: Functional Status from this encounter No Functional Status Recorded Physical Exam Includes: Physical Exam from this encounter No Physical Exam Recorded Encounters Encounter Provider Location Date Check-In Time Check-Out Time Diagnosis Post Op Visit/Follow Up Elie Ruiz MD [facility], 02/14/19 25 9:40AM 9:57AM Insurance Includes: Active Insurance Policies Plan Name Member ID Group # Subscriber Relationship Effect brianda Dates 1 - [facility] [id number] Danielle Mccormack Clinical Notes Includes: Clinical Notes from this encounter * Progress note Date Encounter Last Documented by 02/15/2024 Post Op Visit/Follow Up Last doc umented on 02/15/2024; 10:45 AM, Elie Ruiz MD; [facility], Plan StartCited - Unsp fracture of left patella, init for clos fx Follow Up/Appointment: 1 Month EndCited User Defined 4 Status post left patellar tendon rupture with surgery on 01/17 and then subsequent revision surgery on 01/30 Noncompliant patient with a left patella tendon rupture who did not follow instructions after initial surgery on 01/18/2024 who presents today for follow-up after his more recent revision surgery. He is at a nursing facility. He was Ex- Fix to keep his leg straight. Per nursing And physical therapy documentation he has been noncompliant and has been putting weight on his leg even though he was told not to. Seen today with the medical records analyst in the room. States the pain is improved. States there is no numbness or tingling. Physical examination Karlee in position. Wound healing well. No signs of infection or drainage. Pin sites are healthy and clean. Warm well-perfused toes. Able to wiggle his toes and his ankle. Sensation intact light touch in his foot. Assessment and plan Continue nonweightbearing left lower extremity. [place] removed. Steri-Strips placed. Pin sites cleaned and covered. Follow-up in 4 weeks. Discussed that he will likely be Ex-Fix in a straight leg position for another 2 months.Spent over 20 minutes today in the office with him discussing that he needs to follow instructions and be compliant
--- OUTSIDE RECORDS SUMMARY | 2024-03-26 12:17 | XMS_ITS | Continuity of Care Document ---
Author Organization [facility] Address [address] [place] [address] Care Team Providers Care Assistant Vice President Name Role Phone [facility]) OTHER Assessment No assessment recorded. Plan [...] Details Recorded Time Left patellar tendon rupture [id number] 9100 Active [address] [facility] [address], [address], [place], [address], [facility] Oration [facility] 5 05:39:03 Acute pain 952495951 Active 2024 [facility] [address], [address], [place], [address], [facility] 5 05:39:18 Fracture of upper end of fibula 66656586 Active 20[address] [facility] [address], [address], [place], [address], [facility] 5 05:40:07 Anxiety 41903611 Active 20[address] [facility] [address], [address], [place], [address], [facility] 5 05:40:50 Attention deficit hyperactivi ty disorder 405289892 Active 20[address] [facility] [address], [address], [place], [address], [facility] 5 05:40:57 Tachycardia 6127229 Active 20[address] [facility] [address], [address], [place], [address], [facility] 5 05:41:05 Asthenia 83442698 Active 20[address] [facility] [address], [address], [place], [address], [facility] 5 05:42:19 Obstructive sleep apnea syndrome 41454269 Active 20[address] [facility] [address], [address], [place], [address], [facility] 5 05:42:29 Problem Notes None recorded. Medical Equipment None Reported. Vitals None Recorded Social History None recorded. Functional Status None recorded. Mental Status None recorded. Family History Nothing Reported. Medical History No medical history recorded. Gynecological HistoryNo gynecological history recorded. Obstetrics History GPAL:G 0 P 0 0 0 0 Past Encounters Encounter ID Performer Location Encounter Start Date Encounter Closed Date Diagnosis/Indication Diagnosis SNOMED-CT Code Diagnosis ICD10 Code Diagnosis Note [id number] [facility] [address] [place] [address] 02/20/2024 11:22:09 02/21/2024 12:21:51 Fracture of upper end of fibula 77609336 S89.202D Left patellar tendon rupture requiring revision and placement of external fixator by Dr. Esquivel.Nonw eightbeari ng left lower extremityc ontinue to use walker or crutches for ambulation .continue oxycodone 5-10 mg q4h prncontinu e gabapentin 200 mg bidasa 81 mg bid x 3 moscontinu e PT Ara/up with orthopedic surgery as planned Left bowser lar tendon rupture [id number] 4580053 S76.112D see above Acute pain 044307876 R52 see pain med plan abovemonit or painmonito r utilizatio n of narcs and wean as tolerated Asthenia 89927011 R53.1 continue PT OTindepend ent at baseline Tachycardia 3200843 R00. 0 tachycardi c 150s with [id number] -130s at restdrinki ng a monster and on adderall (see HPI)check HR prior to adderall administra tichris obtain an ECG to make sure hes not in afibmonito r vitals qshift x 3 days Obstructiv e sleep apnea syndrome 56290914 G47.33 not on CPAPshould have outpatient sleep study Attention deficit hyperactivity disorder 942829528 F90.9 continue adderall 35 mg dailymonit or HR prior to giving med Anxiety 63149958 F41.9 continue sertraline 50 mg qhscontinu e ambien 5 mg qhs prn for sleeprefus ed psych eval with [address] [id number] GENET WHITE NP [facility] [address] [address] 02/26/2024 14:20:03 02/28/2024 08:26:45 Fracture of upper end of fibula 20143782 S89.202D Left patellar tendon rupture requiring revision and placement of external fixator by Dr. Esquivel.Nonw eightbeari ng left lower extremityc ontinue to use walker or crutches for ambulation .continue oxycodone 5-10 mg q4h prn - occasional use per Joseph e gabapentin 200 mg bidasa 81 mg [...] go home. Left bowser lar tendon rupture [id number] 6298347 S76.112D see above Acute pain 543428515 R52 Pain controlled - continue APAP, gabapentin , and oxycodone. monitor pain, adjust meds as needed.mon itor utilizatio n of narcs and wean as tolerated Asthenia 39925819 R53.1 continue PT OTindepend ent at baseline Tachycardia 7821224 R00. 0 Monitor HR, check prior to adderall use daily.Avoi d caffeine - encouraged pt. to drink decaf coffee and avoid other drinks with high caffeine levels Check with nsg. re: EKG results Obstructiv e sleep apnea syndrome 02928454 G47.33 not on CPAPshould have outpatient sleep study Attention deficit hyperactivity disorder 817160765 F90.9 continue adderall 35 mg dailymonit or HR prior to giving med Anxiety 40015047 F41.9 continue sertraline 50 mg qhscontinu e ambien 5 mg qhs prn for sleeprefus ed psych eval with [facility] [address] [id number] JASPAL BENDER, [facility] [place] [address] [place] [address] 03/05/2024 08:14:56 03/06/2024 15:48:02 Fracture of upper end of fibula 68146956 S89.D Left patellar tendon rupture requiring revision [...] routine healingfol low up with ortho surgery mar 18 Left bowser lar tendon rupture [id number] 0741973 S76.112D see above Asthenia 76602566 R53.1 returning home tomorrowin dependent at baselineus ing crutches and cane to ambulateho me PT OT set up Tachycardia 5486653 R00. 0 Monitor HR while on adderallAv oid caffeine - encouraged pt. to drink decaf coffee and avoid other drinks with high caffeine levels f/up with pcp Obstructiv e sleep apnea syndrome 04948311 G47.33 not on CPAPshould have outpatient sleep study Attention deficit hyperactivity disorder 473974097 F90.9 continue adderall 35 mg dailymonit or HR prior to taking medf/up with pcp Anxiety 72489482 F41.9 continue sertraline 50 mg qhscontinu e [...] Member ID Steve Member ID Guarantor Name 03/05/2024 1 [facility] - DOS ON OR AFTER 2022 - MEDICARE ADVANTAGE [place] (MEDICARE REPLACEMENT/ADV ANTAGE - PPO) Danielle Villar [id number] Danielle Villar Notes Date Note Type Note Provider Name and Address Organization Details Recorded Time 03/05/2024 text/html Pt is a 38-year-old male being seen today for a discharge summary visit. Pt has a recent fall with left patellar tendon rupture s/p repair on 01/18/2024. Once stable he was transferred to [place] to complete rehab. Patient is being discharge [...] PCP follow up. PMH obesity, OSMAR, anxiety JASPAL BENDER NP-C [address], [address], [place], [address], [facility] - Plored 03/05/2024 09:04:12 OBGyn Episode No OBEpisode recorded.
--- OUTSIDE RECORDS SUMMARY | 2024-03-26 12:18 | XMS_ITS ---
Author Organization [facility] Address [address] [place] [address] Phone Care Team Providers Care Water Valve Repairer Name Role Phone Livan Rosales Primary Care Provider [phone] [facility] Unavailable [phone] Plan of Treatment Future Appointments Date Time Location [facility] Post Op Visit/Follow Up 04/01/2024 10:20AM [facility] Leann Esquivel MD Last Documented On 5 1:25PM ; [facility] Post Op Visit/Follow Up 04/16/2024 9:00AM [facility] Wei Duckworth MD Last Documented On 5 9:19AM ; [facility] Assessments Includes: Assessments for all patient encounters No Assessments Recorded Medical Equipment - Implanted Devices Includes: Current and historical Devices No Medical Equipment Recorded Medications Administered Includes: Administered Medications in patient's chart No Administered Medications Recorded Results Includes: Results from 03/26/2023 through 03/26/2024 No Results Recorded For Specified Dates History of Present Illness History of Present Illness not supported for this document type No History of Present Illness Recorded Social History No Social History Recorded - Smoking Status Unknown Procedures and Surgical History Includes: Procedures from 03/26/2023 through 03/26/2024 Procedures Code Diagnosis Performing Provider Service Location Service Date Apply Bone Fixation Device (Left) Pain due to internal orthopedic prosth dev/grft, gorge Esquivel MD [facility] - Inpatient 01/31/2024 Last Documented On 4 3:12PM ; [facility], Repair/Graft 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) 16489 Strain of musc/tend at lower leg level, left leg, gorge Esquivel MD [facility] - Inpatient 01/31/2024 Last Documented On 4 3:12PM ; [facility], Apply Bone Fixation Device (Left, Brokerage Manager Surgeon) 60599 Strain of musc/tend at lower leg level, left leg, init Tiburcio Johnson MD [facility] - Inpatient 01/31/2024 Last Documented On 4 3:12PM ; [facility], Repair/Graft 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, Brokerage Manager Surgeon) 26211 Strain of musc/tend at lower leg level, left leg, init Tiburcio Johnson MD [facility] - Inpatient 01/31/2024 Last Documented On 4 3:12PM ; [facility], Repair Of 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) 01672 Strain of musc/tend at lower leg level, left leg, init Tiburcio Johnson MD [facility] - Inpatient 01/18/2024 Last Documented On 4 2:46PM ; [facility] 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, Brokerage Manager Surgeon, penology teacher) 12800 Strain of musc/tend at lower leg level, left leg, init Jolynn SCHWARZ [facility] - Inpatient 01/18/2024 Last Documented On 4 2:46PM ; [facility], Medical History Includes: Medical History in patient's [...] this document type No Physical Exam Recorded Encounters Includes: Encounters from 03/26/2023 through 03/26/2024 Encounter Provider Location Date Check-In Time Check-Out Time Diagnosis Post Op Visit/Follow Up Jericho Dominguez MD [facility] 03/18/19 25 9:00AM 9:35AM Post Op Visit/Follow Up Elie Ruiz MD [facility] 02/14/19 9:40AM 9:57AM Insurance Includes: Active Insurance Policies Plan Name Member ID Group # Subscriber Relationship Effect brianda Dates 1 - [facility] [id number] Danielle Mccormack Clinical Notes Includes: Signed Clinical Notes starting from 01/23/2022 * Progress note Date Encounter Last Documented by 03/18/2024 Post Op Visit/Follow Up Last doc umented on 03/18/2024; 9:24 AM, Jericho Dominguez MD; [facility], Chief Complaint Dx: Left patella tendon rupture S/p repair 01/18/2024 S/p revision repair with application of external fixator 01/31/2024 HPI: 38-year-old male with multiple psychosocial con founders noncompliant removed cast after initial surgery underwent revision with application of external fixator returns today overall doing well Pin sites clean Does have some concerns about bounding Strict nonweightbearing External fixator tight no sign of loosening Ultimate importance of compliance with risk of amputation or fusion if fails therapy recommendations/orders and compromises repair Plan: Follow-up: 1 month repeat exam Pin site care Nonweightbearing left lower extremity * Progress note Date Encounter Last Documented by 02/15/2024 Post Op Visit/Follow Up Last doc umented on 02/15/2024; 10:45 AM, Elie Ruiz MD; [facility], Plan StartCited - Unsp fracture [...] not to. Seen today with the medical scientific liaison in the room. States the pain is [...]
--- OUTSIDE RECORDS SUMMARY | 2024-03-26 12:18 | XMS_ITS | Clinical Summary ---
Author Organization [facility] Address [address] [place] [address] Phone Care Team Providers Care Drum Straightener Name Role Phone Livan Rosales Primary Care Provider [phone] [facility] Un[facility] [phone] Reason for Visit and Chief Complaint Post Op Visit/Follow Up Plan of Treatment Future Appointments Date Time Location Provi dylan Post Op Visit/Follow Up 04/01/2024 10:20AM [facility], Leann Esquivel MD Last Documented On 5 1:25PM ; [facility] Post Op Visit/Follow Up 04/16/2024 9:00AM [facility], Wei Duckworth MD Last Documented On 9:19AM ; [facility] Assessments Includes: Assessments from this encounter [...] Includes: Review of Systems from this encounter No Review of Systems Recorded Mental Status Includes: Mental Status from this encounter No Mental Status Recorded Functional Status Includes: Functional Status from this encounter No Functional Status Recorded Physical Exam Includes: Physical Exam from this encounter No Physical Exam Recorded Encounters Encounter Provider Location Date Check-In Time Check-Out Time Diagnosis Post Op Visit/Follow Up Jericho Dominguez MD [facility] 03/18/19 9:00AM 9:35AM Insurance Includes: Active Insurance Policies Plan Name Member ID Group # Subscriber Relationship Effect brianda Dates 1 - [facility] [id number] Danielle Villar Self Clinical Notes Includes: Clinical Notes from this encounter * Progress note Date Encounter Last Documented by 03/18/2024 Post Op Visit/Follow Up Last doc umented on 03/18/2024; 9:24 AM, Jericho Dominguez MD; [facility], Chief Complaint Dx: Left patella tendon rupture [...]
== END 2024-03-26 11:56 | disposition home or self-care (01) ==
PROVIDERS: PCP Internal Medicine; Visit Provider Physician Assistant Medical
DX: G47.00 Insomnia, unspecified (principal); R06.83 Snoring
CPT/HCPCS: 99204

== ENCOUNTER → 2024-03-26 10:54 | Outpatient (BNVA) | payer OTHER, SELFPAY | PROVIDERS: PCP Internal Medicine; Visit Provider Physician Assistant Medical | DX: G47.00 Insomnia, unspecified (principal); R06.83 Snoring | CPT/HCPCS: 99202 ==

== ENCOUNTER 2024-04-15 14:35 | Outpatient (AMB) | payer OTHER, SELFPAY ==
[2024-04-15 14:47] VITALS: BP 136/82; PULSE 136; O2SAT 98; BMI 45.0
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
--- OUTSIDE RECORDS SUMMARY | 2024-04-15 17:23 | XMS_ITS | Clinical Summary ---
Author Organization [facility] Address [address] [place] [address] Phone Care Team Providers Care Vice President Of Finance Name Role Phone Livan Rosales Primary Care Provider [phone] [facility] [phone] Reason for Visit and Chief Complaint Post Op Visit/Follow Up Plan of Treatment Future Appointments Date Time Location [facility] Post Op Visit/Follow Up 04/16/2024 9:00AM [facility] Leann Esquivel MD Last Documented On 5 10:31AM ; [facility] Post Op Visit/Follow Up 04/29/2024 9:20AM [facility] Leann Esquivel MD Last Documented On 5 10:49AM ; [facility] Assessments Includes: Assessments from this encounter [...] Check-Out Time Diagnosis Post Op Visit/Follow Up Leann Esquivel MD [facility] 04/17/19 9:00AM 11:59PM Insurance Includes: Active Insurance Policies Plan Name Member ID Group # Subscriber Relationship Effect brianda Dates 1 - [facility] [id number] Danielle Mccormack Clinical Notes Includes: Clinical Notes from this encounter No Clinical Notes Recorded
--- OUTSIDE RECORDS SUMMARY | 2024-04-15 17:23 | XMS_ITS | Clinical Summary ---
Author Organization [facility] Address [address] [place] [address] Phone Care Team Providers Care Office Copy Selector Name Role Phone Livan Rosales Primary Care Provider [phone] [facility] [phone] Reason for Visit and Chief Complaint Post Op Visit/Follow Up Plan of Treatment Future Appointments Date Time Location [facility] Post Op Visit/Follow Up 04/16/2024 9:00AM [facility] Leann Esquivel MD Last Documented On 5 10:31AM ; [facility] Post Op Visit/Follow Up 04/29/2024 9:20AM [facility] Leann Esquivel MD Last Documented On 5 10:49AM ; [facility] Assessments Includes: Assessments from this encounter [...] Post Op Visit/Follow Up Leann Esquivel MD [facility] 04/01/19 10:20AM 10:50AM Insurance Includes: Active Insurance Policies Plan Name Member ID Group # Subscriber Relationship Effect brianda Dates 1 - [facility] [id number] Danielle Villar Self Clinical Notes Includes: Clinical Notes from this encounter * Progress note Date Encounter Last Documented by 04/01/2024 Post Op Visit/Follow Up Last doc umented on 04/01/2024; 10:54 AM, Leann Esquivel MD; [facility], Top of Document Dx: Left patella tendon rupture S/p repair 01/18/2024 S/p revision repair with application of external fixator 01/31/2024 The patient presents for evaluation of the above. His pin sites look fantastic there is minimal drainage no sign of purulence no sign of infection. He can now shower he should keep the leg straight. His patella tendon incision is well-healed no erythema no drainage. As such she is progressing nicely. He should continue with daily pin care. He reports he has adequate dressings to do this at home. He will follow-up now in 1 month for repeat evaluation. If the pin sites continue to look good he should be seen then. If he has any issues he knows to call to be seen sooner I did discuss this with him. If everything looks good at next visit we will plan to remove the external fixator and place him in a hinged knee brace with gradual progression in range of motion. The patient is already looking forward to having a brace that he can take off. I informed him that he will have restrictions postoperatively in his brace and it is imperative that he follows these restrictions.
--- OUTSIDE RECORDS SUMMARY | 2024-04-15 17:23 | XMS_ITS | Clinical Summary ---
Author Organization [facility] Address [address] [place] [address] Phone Care Team Providers Care Electronics System Mechanic Name Role Phone Livan Rosales Primary Care Provider [phone] [facility] [phone] Reason for Visit and Chief Complaint Post Op Visit/Follow Up Plan of Treatment Future Appointments Date Time Location [facility] Post Op Visit/Follow Up 04/16/2024 9:00AM [facility] Leann Esquivel MD Last Documented On 5 10:31AM ; [facility] Post Op Visit/Follow Up 04/29/2024 9:20AM [facility] Leann Esquivel MD Last Documented On 5 10:49AM ; [facility] Assessments Includes: Assessments from this encounter [...] Post Op Visit/Follow Up Jericho Dominguez MD [facility] 03/18/19 9:00AM 9:35AM Insurance Includes: Active Insurance Policies Plan Name Member ID Group # Subscriber Relationship Effect brianda Dates 1 - [facility] [id number] Danielle Mccormack Clinical Notes Includes: Clinical Notes from this encounter * Progress note Date Encounter Last Documented by 03/18/2024 Post Op Visit/Follow Up Last doc umented on 03/18/2024; 9:24 AM, Jericho Dominguez MD; [facility], Chief Complaint Dx: Left patella tendon rupture [...]
--- OUTSIDE RECORDS SUMMARY | 2024-04-15 17:23 | XMS_ITS | Clinical Summary ---
Author Organization [facility] Address [address] [place] [address] Phone Care Team Providers Care Route Rider Supervisor Name Role Phone Livan Rosales MD Primary Care Provider + [phone] Allergies Active Allergy Reactions Criticality Noted Date Comments Cat Dander 01/27/2024 itchy eyes, throat irritation, runny nose Pineapple 01/27/2024 Medications aspirin 81 mg EC tablet Take 1 tablet (81 mg total) by mouth 2 (two) times a day. 02/06/2024 05/07/19 25 Active gabapentin (NEURONTIN) 100 mg capsule Take 1 capsule (100 mg total) by mouth 2 (two) times a day. 02/06/2024 Active sertraline (ZOLOFT) 50 mg tablet Take 1 tablet (50 mg total) by mouth at bedtime. 02/06/2024 Active oxyCODONE (ROXICODONE) 10 mg immediate release tablet Take 1 tablet (10 mg total) by mouth every 4 (four) hours if needed for severe pain. Max Daily Amount: 60 mg 15 tablet 02/06/2024 Active oxyCODONE (ROXICODONE) 5 mg immediate release tablet Take 1 tablet (5 mg total) by mouth every 4 (four) hours if needed for moderate pain. Max Daily Amount: 30 mg 15 tablet 02/06/2024 Active Active Problems Problem Noted Date Diagnosed Date Patellar tendon avulsion, left, sequela 01/30/20 Resolved Problems Problem Noted Date Diagnosed Date Resolved Date Patellar tendon rupture, lef t, subsequent encounter 01/29/2024 02/06/2024 Rupture of left patellar ten don, subsequent encounter 01/27/2024 02/06/2024 Patellar fracture 01/17/2024 01/19/2024 Encounters Date Type Department Care Team Description 04/09/2024 3:33 PM EST - 04/09/2024 7:[address] [facility] Emergency [address] [place] [address] Pain (Primary Dx); Traumatic medial retinacular tear of right knee, initial encounter Discharge Disposition: Home or Self Care 02/21/2024 Lab Requisition [facility] Lab [address] [place] [phone] Berry Garcia MD Tachycardia, unspecified 01/31/2024 12:30 PM EST - 01/31/2024 2:[address] [facility] OR [address] [place] [phone] Leann Esquivel MD REPAIR LIGAMENT OR TENDON PATELLA, revision repair spanning external fixator to left lower extremity [73299 (CPT??)] 01/31/2024 12:17 PM EST Anesthesia Event [facility] OR [address] [place] [phone] Gucci Rodriguez MD 01/27/2024 2:02 PM EST - 02/06/2024 5:43 PM EST Hospital Encounter [facility] Medical Surgical Unit [address] [place] [phone] Mitchell Corley MD Sondhi, Vikram, MD Alam, Aroosa, MD Bell, Alistair A, MD Kokosadze, Estate, MD Patellar tendon rupture, left, subsequent encounter (Primary Dx); Rupture of left patellar tendon, subsequent encounter; Pain Discharge Disposition: Longterm Facility 01/18/2024 10:29 AM EST Anesthesia Event [facility] OR [address] [place] [phone] Mitchell Monge MD 01/18/2024 9:30 AM EST - 01/18/2024 11:[address] [facility] OR [address] [place] [phone] Jericho Dominguez MD REPAIR LIGAMENT OR TENDON PATELLA 01/17/2024 7:54 AM EST - 01/19/2024 4:11 PM EST Hospital Encounter [facility] Urology Unit [address] [place] [phone] Jelani Johnson, Kieran Low MD Acute pain [...] care for your loved ones. For example, child nurse or elderly care for an older adult? [...] Sign Reading Time Taken Comments Blood Pressure 164/100 04/09/2024 6:33 PM EST Pulse 105 04/09/2024 6:33 PM EST Temperature 36.9 ??C (98.4 ??F) 04/09/2024 6:33 PM ES T Respiratory Rate 20 04/09/2024 6:33 PM EST Oxygen Saturation 98% 04/09/2024 6:33 PM EST Inhaled Oxygen Concentration - - Weight 150 kg (330 lb) 04/09/2024 1:22 PM EST Height 180.3 cm (5' 11 ) 04/09/2024 1:22 PM EST Body Mass Index 46.03 04/09/2024 1:22 PM EST Plan of Treatment Health Maintenance Due [...] this topic Medical Devices Implanted Type Area Cooking Casing And Drying Supervisor Device Identifier Shelf Expiration Date Model / Serial / Lot Clamp Latty 4h Arbor Beeswax Bleacher Fixation - Sn/A - [id number] Implanted:Qty: 10 on 01/31/2024 by Leann Esquivel MD at [facility] Internal and External Fixation Left: Leg [facility] 1173.0001 / N/A / N/A Bar Carbn Fiber [id number] Abror Beeswax Bleacher Fixation - Sn/A - [id number] Implanted:Qty: 4 on 01/31/2024 by Leann Esquivel MD at [facility] Internal and External Fixation Left: Femur [facility] [id number] / N/A / N/A Pin Schanz [id number] Slf Drill 40mm Cortical Thrd Ss [facility] - Sn/A - [id number] Implanted:Qty: 2 on 01/31/2024 by Leann Esquivel MD at [facility] Internal and External Fixation Left: Femur [facility] [id number] / N/A / N/A Pin Schanz [id number] Slf Drill 40mm Cortical Thrd Ss [facility] - Sn/A - [id number] Implanted:Qty: 2 on 01/31/2024 by Leann Esquivel MD at [facility] Internal and External Fixation Left: Leg [facility] [id number] / N/A / N/A Procedures Procedure Name Priority Date/Time Associated Diagnosis Comments CT LOWER EXTREMITY WO CONTRAST LEFT STAT 04/09/2024 4:24 PM EST CBC WITH AUTO DIFFERENTIAL STAT 04/09/2024 4:07 PM EST CBC AND DIFFERENTIAL STAT 04/09/2024 4:07 PM EST BASIC METABOLIC PANEL STAT 04/09/2024 4:07 PM EST XR KNEE 1-2 VIEWS LEFT STAT 3:59 PM EST VAS US DUPLEX LOWER EXT VENOUS LEFT STAT 04/09/2024 2:59 PM EST Pain BASIC METABOLIC PANEL Routine 02/21/2024 5:32 AM [...] LMA(NO CHARGE) Routine 01/31/2024 12:49 PM EST LA SUTURE OF INFRAPATELLAR TENDON PRIMARY 01/31/2024 12:18 [...] EST XR KNEE 1-2 VIEWS LEFT STAT 2:14 PM EST POTASSIUM Routine 01/18/2024 1:51 [...] EST from Last 3 Months Results * CT Lower Extremity wo Contrast Left (04/09/2024 4:24 PM EST) Anatomical Region Laterality Modality Lower Extremities Left Computed Tomog milan 04/09/2024 5:02 PM EST Impressions 04/09/2024 5:06 PM EST Examination for articular soft tissue structures are limited on CT, however there is lateral subluxation of the patella suggesting retinacular tear. ??The quadriceps and patellar tendons are not well evaluated on this exam. ??There is severe osteopenia without acute fracture. -------- FINAL REPORT -------- Dictated By: Mónica Garg Dictated Date: 04/09/2024 17:02 ET Assigned Physician: Mónica Garg Reviewed and Electronically Signed By: Mónica Garg Signed Date: 04/09/2024 17:06 ET Workstation ID: [id number] Transcribed By: Self Edit Transcribed Date: 04/09/2024 17:02 ET Narrative 04/09/2024 5:06 PM EST PROCEDURE: CT LOWER EXTREMITY WO CONTRAST LEFT INDICATION: Knee pain, stress fracture suspected, no prior imaging TECHNIQUE: Dedicated CT examination was performed of the left lower extremity with multiplanar reformats. The examination was performed utilizing dose reduction techniques. ?? Total DLP: 482 mGy/cm COMPARISON: ??No priors available. FINDINGS: ??Examination of the knee demonstrates severe osteopenia without evidence for acute fracture though given significant osteopenic changes subtle fractures would be difficult to exclude. ??There is severe osteoarthritis as well with near rlws-bi-qejw articulation. ??The quadriceps and patellar tendons are not well identified on this CT scan, there is some question of patellar tendon tear. ??Though there is lateral subluxation of the patella suggesting retinacular tear. ??There is diffuse soft tissue edema. Procedure Note Mónica Garg MD - 04/09/2024 PROCEDURE: CT LOWER EXTREMITY WO CONTRAST LEFT INDICATION: Knee pain, stress fracture suspected, no prior imaging TECHNIQUE: Dedicated CT examination was performed of the left lowerextremity with multiplanar reformats. The examination was performedutilizing dose reduction techniques. Total DLP: 482 mGy/cm COMPARISON: No priors available. FINDINGS: Examination of the knee demonstrates severe osteopenia withoutevidence for acute fracture though given significant osteopenic changessubtle fractures would be difficult to exclude. There is severeosteoarthritis as well with near oaeq-[id number]-[id number] articulation. Thequadriceps and patellar tendons are not well identified on this CT scan,there is some question of patellar tendon tear. Though there is lateralsubluxation of the patella suggesting retinacular tear. There is diffusesoft tissue edema. IMPRESSION: Examination for articular soft tissue structures are limited on CT,however there is lateral subluxation of the patella suggesting retinaculartear. The quadriceps and patellar tendons are not well evaluated on thisexam. There is severe osteopenia without acute fracture. -------- FINAL REPORT -------- Dictated By: Mónica Garg Dictated Date: 04/09/2024 17:02 ET Assigned Physician: Mónica Garg Reviewed and Electronically Signed By: Mónica Garg Signed Date: 04/09/2024 17:06 ET Workstation ID: [id number] Transcribed By: Self Edit Transcribed Date: 04/09/2024 17:02 ET [facility] IM CT PROCEDURES Final Resu lt * (ABNORMAL) CBC auto differential (04/09/2024 4:07 PM EST) Only the most recent of4 resultswithin the time period is included. WBC 7.1 4.8 - 10.8 K/mcL LAB HEMETOLOGY METHOD 04/09/2024 4:14 PM [facility] RBC 5.10 4.50 - 5.50 M/mcL LAB HEMETOLOGY METHOD 04/09/2024 4:14 PM [facility] LAB Hemoglobin 13.0(L) 13.5 - 17.5 g/dL LAB HEMETOLOGY METHOD 04/09/2024 4:14 PM [facility] LAB Hematocrit 41.8(L) 42.0 - 54.0 % LAB HEMETOLOGY METHOD 04/09/2024 4:14 PM [facility] LAB MCV 82.3 79.0 - 98.0 FL LAB HEMETOLOGY METHOD 04/09/2024 4:14 PM [facility] LAB MCH 25.6(L) 27.0 - 32.0 pcg LAB HEMETOLOGY METHOD 04/09/2024 4:14 PM [facility] MCHC 31.1(L) 32.0 - 37.0 g/dL LAB HEMETOLOGY METHOD 04/09/2024 4:14 PM [facility] RDW 16.4(H) 11.0 - 15.0 % LAB HEMETOLOGY METHOD 04/09/2024 4:14 PM [facility] Platelets 383 130 - 400 K/mcL LAB HEMETOLOGY METHOD 04/09/2024 4:14 PM [facility] MPV 9.0 7.0 - 11.0 FL LAB HEMETOLOGY METHOD 04/09/2024 4:14 PM [facility] NRBC 0.0 <1.0 % LAB HEMETOLOGY METHOD 04/09/2024 4:14 PM [facility] NRBC Absolute 0.00 <0.10 K/mcL LAB HEMETOLOGY METHOD 04/09/2024 4:14 PM [facility] Neutrophils Relative 53.4 % LAB HEMETOLOGY METHOD 04/09/2024 4:14 PM [facility] Lymphocytes Relative 35.0 % LAB HEMETOLOGY METHOD 04/09/2024 4:14 PM [facility] Monocytes Relative 8.3 % LAB HEMETOLOGY METHOD 04/09/2024 4:14 PM [facility] Eosinophils Relative 2.7 % LAB HEMETOLOGY METHOD 04/09/2024 4:14 PM [facility] Basophils Relative 0.3 % LAB HEMETOLOGY METHOD 04/09/2024 4:14 PM EST [facility] Immature Granulocytes Relative 0.3 % LAB HEMETOLOGY METHOD 04/09/2024 4:14 PM EST [facility] Neutrophils Absolute 3.82 1.50 - 7.00 K/[facility] LAB HEMETOLOGY METHOD 04/09/2024 4:14 PM [facility] Lymphocytes Absolute 2.50 1.00 - 5.00 K/mcL LAB HEMETOLOGY METHOD 04/09/2024 4:14 PM [facility] Monocytes Absolute 0.59 0.20 - 1.00 K/mcL LAB HEMETOLOGY METHOD 04/09/2024 4:14 PM [facility] Eosinophils Absolute 0.19 0.00 - 0.50 K/[facility] LAB HEMETOLOGY METHOD 04/09/2024 4:14 PM [facility] Basophils Absolute 0.02 0.00 - 0.20 K/mcL LAB HEMETOLOGY METHOD 04/09/2024 4:14 PM [facility] Immature Granulocytes Absolute 0.02 0.00 - 0.03 K/mcL LAB HEMETOLOGY METHOD 04/09/2024 4:14 PM [facility] Blood Venous blood specimen / Unknown Venipuncture / Unknown 04/09/2024 4:07 PM EST 04/09/2024 4:11 PM EST us [facility] LAB BLOOD ORDERABLES Final R esult [facility] [address] [place] [address], * Basic Metabolic Panel (BMP) (04/09/2024 4:07 PM EST) Only the most recent of7 resultswithin the time period is included. Sodium 142 133 - 145 mmol/L LAB CHEMISTRY METHOD 04/09/2024 4:45 PM EST [facility] Potassium 4.0 3.5 - 5.5 mmol/L LAB CHEMISTRY METHOD 04/09/2024 4:45 PM [facility] Chloride 110 96 - 110 mmol/L LAB CHEMISTRY METHOD 04/09/2024 4:45 PM [facility] CO2 26 21 - 32 mmol/L LAB CHEMISTRY METHOD 04/09/2024 4:45 PM [facility] Anion Gap 6 3 - 11 LAB CHEMISTRY METHOD 04/09/2024 4:45 PM [facility] Glucose 82 70 - 100 mg/dL LAB CHEMISTRY METHOD 04/09/2024 4:45 PM [facility] BUN 9 5 - 25 mg/dL LAB CHEMISTRY METHOD 04/09/2024 4:45 PM [facility] Creatinine 0.80 0.70 - 1.30 mg/dL LAB CHEMISTRY METHOD 04/09/2024 4:45 PM [facility] LAB eGFR 118 >=60 mL/min/1. 73m2 LAB CHEMISTRY METHOD 04/09/2024 4:45 PM [facility] Comment:Calculation based on the??Chronic Kidney Disease Epidemiology Collaboration (CKD-EPI) equation refit??without adjustment for race. BUN/Creatinine Ratio 11.3 LAB CHEMISTRY METHOD 04/09/2024 4:45 PM [facility] Calcium 9.1 8.5 - 10.5 mg/dL LAB CHEMISTRY METHOD 04/09/2024 4:45 PM [facility] Blood Venous blood specimen / Unknown Venipuncture / Unknown 04/09/2024 4:07 PM EST 04/09/2024 4:11 PM EST us [facility] LAB BLOOD ORDERABLES Final R esult [facility] [address] [place] [address], * XR Knee 1-2 Views Left (04/09/2024 3:59 PM EST) Only the most recent of3 resultswithin the time period is included. Anatomical Region Laterality Modality Lower Extremities, Knee Left Radiogra phic Imaging 04/09/2024 4:14 PM EST Impressions 04/09/2024 4:16 PM EST FINDINGS/IMPRESSION: Two views of the knee demonstrating severe osteopenia. ??Significant soft tissue swelling. ??No visible fracture. ??Mild patella dayana. -------- FINAL REPORT -------- Dictated By: Mónica Garg Dictated Date: 04/09/2024 16:14 ET Assigned Physician: Mónica Garg Reviewed and Electronically Signed By: Mónica Garg Signed Date: 04/09/2024 16:16 ET Workstation ID: [id number] Transcribed By: Self Edit Transcribed Date: 04/09/2024 16:14 ET Narrative 04/09/2024 4:16 PM EST XR KNEE 1-2 VIEWS LEFT INDICATION: pain TECHNIQUE: XR KNEE 1-2 VIEWS LEFT COMPARISON: No priors available. Procedure Note Mónica Garg MD - 04/09/2024 XR KNEE 1-2 VIEWS LEFT INDICATION: pain TECHNIQUE: XR KNEE 1-2 VIEWS LEFT COMPARISON: No priors available. IMPRESSION: FINDINGS/IMPRESSION: Two views of the knee demonstrating severeosteopenia. Significant soft tissue swelling. No visible fracture. Mildpatella dayana. -------- FINAL REPORT -------- Dictated By: Mónica Garg Dictated Date: 04/09/2024 16:14 ET Assigned Physician: Mónica Garg Reviewed and Electronically Signed By: Mónica Garg Signed Date: 04/09/2024 16:16 ET Workstation ID: [id number] Transcribed By: Self Edit Transcribed Date: 04/09/2024 16:14 ET us Maria Luz Elizondo DO IMG XR PROCEDURES Final R esult * Vascular US duplex lower extremity venous left (04/09/2024 2:59 PM EST) Anatomical Region Laterality Modality Vascular, Abdomen Ultrasound 04/09/2024 2:53 PM EST Impressions 04/09/2024 2:53 PM EST NO LEFT LOWER EXTREMITY DEEP VENOUS THROMBOSIS. -------- FINAL REPORT -------- Dictated By: HARSHAD STARK Dictated Date: 04/09/2024 14:53 ET Assigned Physician: HARSHAD STARK Reviewed and Electronically Signed By: HARSHAD STARK Signed Date: 04/09/2024 14:53 ET Workstation ID: [id number] Transcribed By: Self Edit Transcribed Date: 04/09/2024 14:53 ET Narrative 04/09/2024 2:53 PM EST PROCEDURE: VAS US DUPLEX LOWER EXT VENOUS LEFT INDICATION: Pain TECHNIQUE: 2-D and color Doppler imaging of the left lower extremity venous vasculature with compression and augmentation maneuvers. COMPARISON: No priors available. FINDINGS: There is normal flow, compression, and augmentation from the common femoral through the popliteal vein. Visualized calf veins are patent Procedure Note Harshad Stark MD - 04/09/2024 PROCEDURE: VAS US DUPLEX LOWER EXT VENOUS LEFT INDICATION: Pain TECHNIQUE: 2-D and color Doppler imaging of the left lower extremityvenous vasculature with compression and augmentation maneuvers. COMPARISON: No priors available. FINDINGS: There is normal flow, compression, and augmentation from the commonfemoral through the popliteal vein. Visualized calf veins are patent IMPRESSION: NO LEFT LOWER EXTREMITY DEEP VENOUS THROMBOSIS. -------- FINAL REPORT -------- Dictated By: HARSHAD STARK Dictated Date: 04/09/2024 14:53 ET Assigned Physician: HARSHAD STARK Reviewed and Electronically Signed By: HARSHAD STARK Signed Date: 04/09/2024 14:53 ET Workstation ID: [id number] Transcribed By: Self Edit Transcribed Date: 04/09/2024 14:53 ET us Maria Luz Hensleyny Mikhail DO CV VASCULAR PROCEDURES Fi nal Result * (ABNORMAL) Complete blood count (02/21/2024 5:32 AM EST) Only the most recent of4 resultswithin the time period is included. Pathologist [facility] WBC 6.0 4.8 - 10.8 K/mcL LAB HEMETOLOGY METHOD 02/21/2024 9:57 AM [facility] RBC 4.40(L) 4.50 - 5.50 M/mcL LAB HEMETOLOGY METHOD 02/21/2024 9:57 AM [facility] Hemoglobin 11.3(L) 13.5 - 17.5 g/dL LAB HEMETOLOGY METHOD 02/21/2024 9:57 AM [facility] Hematocrit 35.8(L) 42.0 - 54.0 % LAB HEMETOLOGY METHOD 02/21/2024 9:57 AM [facility] MCV 82.1 79.0 - 98.0 FL LAB HEMETOLOGY METHOD 02/21/2024 9:57 AM [facility] MCH 25.9(L) 27.0 - 32.0 pcg LAB HEMETOLOGY METHOD 02/21/2024 9:57 AM [facility] MCHC 31.6(L) 32.0 - 37.0 g/dL LAB HEMETOLOGY METHOD 02/21/2024 9:57 AM [facility] RDW 13.9 11.0 - 15.0 % LAB HEMETOLOGY METHOD 02/21/2024 9:57 AM [facility] Platelets 385 130 - 400 K/mcL LAB HEMETOLOGY METHOD 02/21/2024 9:57 AM [facility] MPV 9.3 7.0 - 11.0 FL LAB HEMETOLOGY METHOD 02/21/2024 9:57 AM [facility] NRBC 0.0 <1.0 % LAB HEMETOLOGY METHOD 02/21/2024 9:57 AM [facility] NRBC Absolute 0.00 <0.10 K/mcL LAB HEMETOLOGY METHOD 02/21/2024 9:57 AM [facility] Blood Venous blood specimen / Unknown Venipuncture / Unknown 02/21/2024 5:32 AM EST 02/21/2024 9:14 AM EST us Berry Garcia MD LAB BLOOD ORDERABLES Final Resul t [facility]) [facility] [address] [place] [address], [place] [phone] * ECG 12 lead (02/01/2024 1:36 PM EST) Ventricular Rate ECG 92 BPM GEMUSE Atrial Rate 92 BPM GEMUSE P-R Interval 136 ms GEMUSE QRS Duration 92 ms GEMUSE Q-T Interval 374 ms GEMUSE QTc 462 ms GEMUSE P Wave [place] 36 degrees GEMUSE R [place] -12 degrees GEMUSE T [place] 6 degrees GEMUSE ECG Interpretation Normal sinus rhythm Nonspecific T wave abnormality Abnormal ECG When compared with ECG of 18-JAN-2024 10:17, No significant change was found Confirmed by Remington CAMPBELL JOHN ([id number]) on 02/02/2024 6:49:38 PM GEMUSE 02/01/2024 1:36 PM EST 02/02/2024 6:49 PM EST us Murray Neil MD ECG ORDERABLES Final Result GEMUSE * TH AN LMA(NO CHARGE) (01/31/2024 12:49 PM EST) Narrative Jamie Cummins CRNA - 01/31/2024 12:49 PM EST Jamie Cummins CRNA ? 01/31/2024 12:50 PM General Information and Staff Patient location during procedure: OR Resident/SALES AND LEASING AGENT: Jamie Cummins CRNA Performed: resident/SALES AND LEASING AGENT/CAA Performed by: Jamie Cummins CRNA Authorized by: [...] 7.35 - 7.45 pH 01/29/2024 10:57 AM [facility] pCO2, Arterial 41 35 - 45 mmHg 01/29/2024 10:57 AM [facility] pO2, Arterial 102(H) 80 - 100 mmHg 01/29/2024 10:57 AM [facility] HCO3, Arterial 26.9(H) 22.0 - 26.0 mmol/L 01/29/2024 10:57 AM [facility] O2 Sat, Arterial 97.3 95.0 - 98.0 % 01/29/2024 10:57 AM [facility] Base Excess, Arterial 2.6(H) -2.0 - 2.0 mmol/L 01/29/2024 10:57 AM [facility] Domenico Test Pass Pass, Unresponsi ve, Line 01/29/2024 10:57 AM [facility] FIO2 28.00 01/29/2024 10:57 AM [facility] Blood Arterial blood specimen / Unknown Arterial Puncture / Unknown 01/29/2024 10:47 AM EST 01/29/2024 10:52 AM EST us Murray Neil MD LAB BLOOD ORDERABLES Final Re sult [facility] [address] [place] [address], * MR Knee wo Contrast Left (01/28/2024 [...] Signed Date: 01/28/2024 15:47 ET Workstation ID: [id number] Transcribed By: Self Edit Transcribed Date: 01/28/2024 [...] Signed Date: 01/28/2024 15:47 ET Workstation ID: [id number] Transcribed By: Self Edit Transcribed Date: 01/28/2024 15:36 ET Jamel Kaplan MD [facility] MRI PROCEDURES Final Result * (ABNORMAL) Drug abuse screen expanded with reflex confirmation, urine (01/28/2024 11:50 AM EST) Amphetamine Screen, Ur Positive(A ) Negative LAB CHEMISTRY METHOD 4 1:24 PM [facility] Comment:Certain OTC medicati ons containing ephedrine, phenylephrine, pseudoephedrine and phenylpropanolamine can cause false positive results. Barbiturate Screen, Ur Negative Negative LAB CHEMISTRY METHOD 4 1:24 PM EST [facility] Benzodiazepine Screen, Ur Negative Negative LAB CHEMISTRY METHOD 4 1:24 PM [facility] Cocaine Screen, Ur Negative Negative LAB CHEMISTRY METHOD 4 1:24 PM [facility] Opiate Screen, Ur Negative Negative LAB CHEMISTRY METHOD 4 1:24 PM EST [facility] Cannabinoid (THC) Screen, Ur Negative Negative LAB CHEMISTRY METHOD 4 1:24 PM EST [facility] Comment:Specimens from patie nts taking pantoprazole sodium (Protonix) have been shown to produce false positive results. Fentanyl, Ur Negative Negative LAB CHEMISTRY METHOD 4 1:24 PM EST [facility] Oxycodone Screen, Ur Positive(A ) Negative LAB CHEMISTRY METHOD 4 1:24 PM EST [facility] Urine Urine specimen obtained by clean catch procedure / Unknown Non-blood Collection / Unknown 01/28/2024 11:50 AM EST 01/28/2024 12:45 PM EST [facility] - 01/28/2024 1:24 PM EST Assay [...] [facility]pe [facility] LAB URINE ORDERABLES Final Result [facility]) [facility] [address] [place] [address], * Opiates confirmation, urine (01/28/2024 11:50 AM [...] developed and the performance characteristics determined by [facility]. This confirmation testing has not been cleared or approved by the FDA. The laboratory is regulated under CLIA as qualified to perform high-complexity testing. This test is used for patient testing purposes. It should not be regarded as investigational or for research. Test performed at [facility], [address] , [place], [place] ??[address] ? [phone] Sally Rhodes MD, PhD - Billet Checker Urine Urine specimen obtained by clean catch procedure / Unknown Non-blood Collection / Unknown 01/28/2024 11:50 AM EST 01/28/2024 1:24 PM EST [facility] URINE ORDERABLES Final Result [facility] [address] [place] [address] * Amphetamines, urine quantitative (01/28/2024 11:50 AM EST) Amphetamine 1238 ng/mL 02/01/2024 7:44 AM EST [facility] Comment: ? Methamphetamine and amphetamine (a metabolite of ? methamphetamine) can be present in urine through ? ingestion of legal drugs. ??Please contact laboratory ? if more information is needed. Analysis for ? (d) vs (l)-isomers is possible and may help clarify ? Interpretation in some cases. Methamphetamine Confirm Urine Negative ng/mL 02/01/2024 7:44 AM EST [facility] MDA Confirm, Urine Negative ng/mL 2023 7:44 AM EST [facility] MDMA Confirm, Urine Negative ng/mL 01/31 7:44 AM EST [facility] MDEA Confirm, Urine Negative ng/mL 01/31 7:44 AM EST [facility] Urine Creatinine 131 20 - 250 mg/dL 02/01/2024 7:44 AM EST [facility] Adulterants Negative 02/01/2024 7:44 AM EST [facility] Comment: ? Confirmation (GC/MS) Decision Limits [...] developed and the performance characteristics determined [facility] [facility]. This confirmation testing has not been cleared or approved by the FDA. The laboratory is regulated under CLIA as qualified to perform high-complexity testing. This test is used for patient testing purposes. It should not be regarded as investigational or for research. Test performed at [facility], [address], [place], [place] ??[address] ? [phone] Sally Rhodes MD, PhD - Billet Checker Urine Urine specimen obtained by clean catch procedure / Unknown Non-blood Collection / Unknown 01/28/2024 11:50 AM EST 01/28/2024 1:24 PM EST us Lupe Murry [place] LAB URINE ORDERABLES Final Result Performing Organization Address City/State/[facility] Co de Phone Number [facility] [address] [place] [address] * Thyroid stimulating hormone with reflex to free t4 and free t3 (01/28/2024 5:57 AM EST) TSH 1.76 0.40 - 4.00 mcIU/mL LAB CHEMISTRY METHOD 01/28/2024 6:54 AM EST [facility] Blood Venous blood specimen / Unknown Venipuncture / Unknown 01/28/2024 5:57 AM EST 01/28/2024 6:03 AM EST us Jamel Kaplan MD LAB BLOOD ORDERABLES Final Resu lt [facility] [address] [place] [address], [place] [phone] * Phosphorus (01/28/2024 5:57 AM EST) Pathologist [facility] Phosphorus 4.3 2.5 - 4.5 mg/dL LAB CHEMISTRY METHOD 01/28/2024 6:42 AM EST [facility] Blood Venous blood specimen / Unknown Venipuncture / Unknown 01/28/2024 5:57 AM EST 01/28/2024 6:03 AM EST us Jamel Kaplan MD LAB BLOOD ORDERABLES Final Resu lt [facility] [address] [place] [address], [place] [phone] * Magnesium (01/28/2024 5:57 AM EST) Magnesium 2.2 1.9 - 2.6 mg/dL LAB CHEMISTRY METHOD 01/28/2024 6:42 AM EST [facility] Blood Venous blood specimen / Unknown Venipuncture / Unknown 01/28/2024 5:57 AM EST 01/28/2024 6:03 AM EST us Jamel Kaplan MD LAB BLOOD ORDERABLES Final Resu lt [facility] [address] [place] [address], [place] [phone] * (ABNORMAL) Hemoglobin A1c (01/28/2024 5:57 AM EST) Pathologist [facility] Hemoglobin A1C 6.9(H) <6.5 % LAB CHEMISTRY METHOD 01/28/2024 8:19 AM EST [facility] Mean Bld Glu Estim. 151 mg/dL LAB CHEMISTRY METHOD 01/28/2024 8:19 AM EST [facility] Blood Venous blood specimen / Unknown Venipuncture / Unknown 01/28/2024 5:57 AM EST 01/28/2024 6:04 AM EST Jamel Kaplan MD LAB BLOOD ORDERABLES Final Resu lt Performing Organization Address City/[facility]/ZIP Co de Phone Number [facility] [address] [place] [address], [place] [phone] * (ABNORMAL) Hepatic function panel (01/28/2024 5:57 AM EST) Pathologist [facility] Total Protein 6.5 6.0 - 8.0 g/dL LAB CHEMISTRY METHOD 01/28/2024 12:23 PM [facility] Albumin 3.0(L) 3.2 - 5.0 g/dL LAB CHEMISTRY METHOD 01/28/2024 12:23 PM [facility] Total Bilirubin 0.4 0.0 - 1.4 mg/dL LAB CHEMISTRY METHOD 01/28/2024 12:23 PM [facility] Bilirubin, Direct 0.1 0.0 - 0.3 mg/dL LAB CHEMISTRY METHOD 01/28/2024 12:23 PM [facility] Bilirubin, Indirect 0.3 0.0 - 1.1 mg/dL LAB CHEMISTRY METHOD 01/28/2024 12:23 PM [facility] ALT (SGPT) 44 10 - 60 unit/L LAB CHEMISTRY METHOD 01/28/2024 12:23 PM [facility] AST (SGOT) 26 10 - 42 unit/L LAB CHEMISTRY METHOD 01/28/2024 12:23 PM [facility] Alkaline Phosphatase 72 42 - 121 unit/L LAB CHEMISTRY METHOD 01/28/2024 12:23 PM [facility] Blood Venous blood specimen / Unknown Venipuncture / Unknown 01/28/2024 5:57 AM EST 01/28/2024 6:03 AM EST Lupe SCHWARZ LAB BLOOD ORDERABLES Final Result Performing Organization Address [facility]/ZIP Co de Phone Number [facility] [address] [place] [address], [place] [phone] * (ABNORMAL) Ammonia (01/27/2024 8:05 PM EST) Ammonia 58(H) 11 - 35 mcmol/L LAB CHEMISTRY METHOD 01/27/2024 8:31 PM EST [facility] Blood Venous blood specimen / Unknown Venipuncture / Unknown 01/27/2024 8:05 PM EST 01/27/2024 8:10 PM EST Jamel Kaplan MD LAB BLOOD ORDERABLES Final Resu lt [facility] [address] [place] [address], [place] [phone] * Potassium (01/18/2024 1:51 PM EST) Potassium 4.3 3.5 - 5.5 mmol/L LAB CHEMISTRY METHOD 01/18/2024 2:32 PM EST [facility] Blood Venous blood specimen / Unknown Venipuncture / Unknown 01/18/2024 1:51 PM EST 01/18/2024 2:05 PM EST us Mitchell Monge MD LAB BLOOD ORDERABLES Final Res ult [facility]) [facility] [address] [place] [address], [place] [phone] * TH AN ENDOTRACHEAL(NO CHARGE) (01/18/2024 11:08 AM EST) Narrative Fifi Redmond CRNA - 01/18/2024 11:08 AM EST Fifi Redmond CRNA ? 01/18/2024 11:12 AM General Information and Staff Patient location during procedure: [place] Anesthesiologist: Mitchell Monge MD Resident/SALES AND LEASING AGENT: Fifi Redmond CRNA Performed: resident/SALES AND LEASING AGENT/CAA Performed by: Fifi Redmond CRNA Authorized by: [...] GEMUSE QTc 454 ms GEMUSE P Wave [place] 63 degrees GEMUSE R [place] -7 degrees GEMUSE T [place] 12 degrees GEMUSE ECG Interpretation Normal sinus [...] Signed Date: 01/17/2024 08:15 ET Workstation ID: [id number] Transcribed By: Self Edit Transcribed Date: 01/17/2024 [...] Signed Date: 01/17/2024 08:15 ET Workstation ID: [id number] Transcribed By: Self Edit Transcribed Date: 01/17/2024 08:14 ET us Rudy Ruiz MD IMG XR PROCEDURES Final R esult * Lipase (01/17/2024 2:22 AM EST) Pathologist [facility] Lipase 25 13 - 75 unit/L LAB CHEMISTRY METHOD 01/17/2024 2:51 AM [facility] Blood Venous blood specimen / Unknown Venipuncture / Unknown 01/17/2024 2:22 AM EST 01/17/2024 2:28 AM EST us Ilya Westbrook MD LAB BLOOD ORDERABLES Final Resu lt [facility] [address] [place] [address], [place] [phone] * (ABNORMAL) Comprehensive metabolic panel (01/17/2024 2:22 AM EST) Pathologist [facility] Sodium 141 133 - 145 mmol/L LAB CHEMISTRY METHOD 01/17/2024 2:51 AM EST [facility] Potassium 3.9 3.5 - 5.5 mmol/L LAB CHEMISTRY METHOD 01/17/2024 2:51 AM [facility] Chloride 111(H) 96 - 110 mmol/L LAB CHEMISTRY METHOD 01/17/2024 2:51 AM [facility] CO2 23 21 - 32 mmol/L LAB CHEMISTRY METHOD 01/17/2024 2:51 AM [facility] Anion Gap 7 3 - 11 LAB CHEMISTRY METHOD 01/17/2024 2:51 AM [facility] Glucose 118(H) 70 - 100 mg/dL LAB CHEMISTRY METHOD 01/17/2024 2:51 AM [facility] BUN 11 5 - 25 mg/dL LAB CHEMISTRY METHOD 01/17/2024 2:51 AM [facility] Creatinine 0.83 0.70 - 1.30 mg/dL LAB CHEMISTRY METHOD 01/17/2024 2:51 AM [facility] eGFR 116 >=60 mL/min/1. 73m2 LAB CHEMISTRY METHOD 01/17/2024 2:51 AM [facility] Comment:Calculation based on the??Chronic Kidney Disease Epidemiology Collaboration (CKD-EPI) equation refit??without adjustment for race. BUN/Creatinine Ratio 13.3 LAB CHEMISTRY METHOD 01/17/2024 2:51 AM [facility] Calcium 8.9 8.5 - 10.5 mg/dL LAB CHEMISTRY METHOD 01/17/2024 2:51 AM [facility] AST (SGOT) 54(H) 10 - 42 unit/L LAB CHEMISTRY METHOD 01/17/2024 2:51 AM [facility] ALT (SGPT) 77(H) 10 - 60 unit/L LAB CHEMISTRY METHOD 01/17/2024 2:51 AM [facility] Alkaline Phosphatase 72 42 - 121 unit/L LAB CHEMISTRY METHOD 01/17/2024 2:51 AM [facility] Total Protein 7.0 6.0 - 8.0 g/dL LAB CHEMISTRY METHOD 01/17/2024 2:51 AM [facility] Albumin 3.5 3.2 - 5.0 g/dL LAB CHEMISTRY METHOD 01/17/2024 2:51 AM [facility] Total Bilirubin 0.4 0.0 - 1.4 mg/dL LAB CHEMISTRY METHOD 01/17/2024 2:51 AM [facility] Blood Venous blood specimen / Unknown Venipuncture / Unknown 01/17/2024 2:22 AM EST 01/17/2024 2:28 AM EST us Ilya Westbrook MD LAB BLOOD ORDERABLES Final Resu lt [facility] (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 Care Teams Route Rider Supervisor Relationship Specialty Start Date End Date Livan Rosales MD NPI: [id number] [place] [address] Dr Patricia Moore MA PCP - General Internal Medicine 01/17/24
--- OUTSIDE RECORDS SUMMARY | 2024-04-15 17:23 | XMS_ITS | Encounter Summary ---
Author Organization [facility] Address [address] [place] [address] Care Team Providers Care Mechanical Process Engineer Name Role Phone Livan Rosales MD Primary Care Provider + [phone] Reason for Visit * Reason Comments Leg Pain PT COMES IN WITH REP ORTS OF LEFT PAIN, GETTING WORSE AFTER TENDON RUPTURE REPAIR, CURRENTLY IN A BRACE. STATES FELT A POPPING SOUND. NO FALL OR INJURY. Encounter Details Date Type Department Care Team (Late st Contact Info) Description 04/09/2024 3:33 PM EST - 04/09/2024 7:02 PM EST Emergency [facility] Emergency [address] [place] [address] Pain (Primary Dx); Traumatic medial retinacular tear of right knee, initial encounter Discharge Disposition: Home or Self Care Social History Tobacco Use Types Packs/Day Years [...] Record ed Within the last 3 months, arlene viera many times did you visit the emergency [...] your doctor or pharmacy? Not on file Financial Risk Answer Date Recorded How hard [...] for your loved ones. For example, child daycare worker or elderly care for an older adult? [...] AM EST documented as of this encounter Last Filed Vital Signs Vital Sign Reading [...] Mass Index 46.03 04/09/2024 1:22 PM EST documented in this encounter Functional Status * Are you deaf or do you have serious difficulty hearing? Answer Date of Assessment Author No 01/17/2024 8:00 AM Walker RN * Are you blind or do [...] AM Walker RN documented in this encounter Discharge Instructions * Discharge Instructions* CHONG Jacinto - 04/09/2024 5:55 PM EST The CAT scan shows that you do have retinacular tear in the knee but that does not involve where you had the surgery. Please follow-up with orthopedics as scheduled. Rest and elevate when possible. Take Motrin or Tylenol as needed for discomfort. * Attachments The following attachments cannot be sent through Care Everywhere. * Muscle Strain (Danish) documented in this encounter Medications at Time of Discharge aspirin 81 mg EC tablet Take 1 tablet (81 mg total) by mouth 2 (two) times a day. 02/06/2024 05/06/2024 oxyCODONE (ROXICODONE) 10 mg immediate release tablet Take 1 tablet (10 mg total) by mouth every 4 (four) hours if needed for severe pain. Max Daily Amount: 60 mg 15 tablet 02/06/2024 oxyCODONE (ROXICODONE) 5 mg immediate release tablet Take 1 tablet (5 mg total) by mouth every 4 (four) hours if needed for moderate pain. Max Daily Amount: 30 mg 15 tablet 02/06/2024 documented as of this encounter Discharge Disposition Disposition Code Departure Means Destination Comment s Home or Self Care documented in this encounter Progress Notes * Jericho Dominguez MD - 04/09/2024 6:19 PM EST CC: Left knee pain HPI: 38-year-old male well-known to service 01/17/2024 mechanical fall with patella tendon rupture 01/18/2024: Primary repair with application long-leg cast 01/27/2024 readmission: Patient had unilaterally removed long-leg cast and compromise/reruptured repair 01/31/2024: Revision repair with application of external fixator 04/09/2023 patient presented to clinic with onset of knee pain Denied fevers chills sweats significant discomfort Patient denied fevers chills sweats drainage Denied shortness of breath pain globally about the knee after a popping sound X-rays negative for patella [place] or [place] Patient referred to ER for further workup Laboratory values negative for infection CT performed significant for lateral subluxation of the patella Imaging studies reviewed with patient discussed with service I have offered and recommended flexion of the knee to approximately 20 degrees in OR Patient declines at this time Severity/gravity of situation and long-term outcomes discussed with patient Patient wishes to think about it Plan: Nonweightbearing left lower extremity Continue pin site care Has appointment scheduled for Monday for April [address] Duckworth I have also discussed with the patient that if his pain becomes intractable and he feels that he isunsafe he is to return to the hospital and we will attempt to perform the external fixator adjustment I have also offered to have a second opinion in [place] if the patient lacks confidence Patient declines that offer KRISTI Dominguez MD * Allison Waldrop RN - 04/09/2024 12:47 PM EST PT COMES IN WITH REPORTS OF LEFT PAIN, GETTING WORSE AFTER TENDON RUPTURE REPAIR, CURRENTLY IN A BRACE. STATES FELT A POPPING SOUND. NO FALL OR INJURY. * CHONG Jacinto - 04/09/2024 12:40 PM EST Emergency Medicine Note Patient Name: Danielle Villar Initial Evaluation: 04/09/2024 : 1985 Patient's PCP: Livan Rosales MD Emergency Physician: CHONG Jacinto History of Present Illness Chief Complaint: Chief Complaint Patient presents with ??? Leg Pain PT COMES IN WITH REPORTS OF LEFT PAIN, GETTING WORSE AFTER TENDON RUPTURE REPAIR, CURRENTLY IN A BRACE. STATES FELT A POPPING SOUND. NO FALL OR INJURY. HPI: 38-year-old male with a history of left patellar tendon rupture on January 17. He had surgicalrepair, however he reruptured the tendon after removing some of the cast. On January 30 patient then had a revision and spanning external fixator to the left leg. Patient states that he got out of [facility] approximately 4 weeks ago had been doing well but is now experiencing pain around the left knee. This started while he was bending over just to put on his slipper on Monday. Describes a burning/numb sensation primarily around the knee. Denies fever chills nausea vomiting. States thatwhen in a car hitting any bumps he gets a very severe vibration sensation around the fixator. ROS: I have performed a ROS with the pertinent positives and negatives documented in the history ofpresent illness. Previous History Past Medical History: Diagnosis Date ??? Obesity (BMI 30.0-34.9) ??? Patellar tendon rupture 01/17/2024 left Past Surgical History: Procedure Laterality Date ??? PATELLAR TENDON REPAIR Left 01/18/2024 Social History Tobacco Use ??? Smoking status: Former Types: Cigarettes ??? Smokeless tobacco: Never No family history on file. is allergic to cat dander and pineapple. No current facility-administered medications on file prior to encounter. Current Outpatient Medications on File Prior to Encounter Medication Sig Dispense Refill ??? aspirin 81 mg EC tablet Take 1 tablet (81 mg total) by mouth 2 (two) times a day. ??? gabapentin (NEURONTIN) 100 mg capsule Take 1 capsule (100 mg total) by mouth 2 (two) times a day. ??? oxyCODONE (ROXICODONE) 10 mg immediate release tablet Take 1 tablet (10 mg total) by mouth every 4 (four) hours if needed for severe pain. Max Daily Amount: 60 mg 15 tablet 0 ??? oxyCODONE (ROXICODONE) 5 mg immediate release tablet Take 1 tablet (5 mg total) by mouth every 4 (four) hours if needed for moderate pain. Max Daily Amount: 30 mg 15 tablet 0 ??? sertraline (ZOLOFT) 50 mg tablet Take 1 tablet (50 mg total) by mouth at bedtime. Physical Exam ED Triage Vitals [04/09/24 1322] Temp Heart Rate Resp BP 36.7 ??C (98.1 ??F) 100 20 128/88 SpO2 Temp Source Heart Rate Source Patient Position 97 % Oral Radial Standing BP Location FiO2 (%) Right arm -- General: Well-appearing, well nourished, in no acute distress HEENT: PERRL, EOMI, external ears and nose appear unremarkable, airway is patent Neck: Supple, full range of motion Chest: Clear to auscultation; no evidence of respiratory distress Circulatory: RRR, extremities well perfused Abdomen: Non-distended, Non-Tender Extremities: Normal ROM, No edema external fixator that goes from left thigh to lower leg is intact. It is rigid patient cannot flex his knee. There is some diffuse posterior and anterior knee tenderness but no erythema. Hardware appears intact. There is no erythema at the anchor sites in the skin of thigh and lower leg Skin: Warm and dry Neuro: Alert and oriented, no focal deficits Results Labs Reviewed - No data to display Abnormal Labs Reviewed - No data to display Vascular US duplex lower extremity venous left Final Result NO LEFT LOWER EXTREMITY DEEP VENOUS THROMBOSIS. -------- FINAL REPORT -------- Dictated By: HARSHAD POSEY Dictated Date: 04/09/2024 14:53 ET Assigned Physician: HARSHAD POSEY Reviewed and Electronically Signed By: HARSHAD POSEY Signed Date: 04/09/2024 14:53 ET Workstation ID: [id number] Transcribed By: Self Edit Transcribed Date: 04/09/2024 14:53 ET XR Knee 3 Views Left (Results Pending) I have discussed the incidental/abnormal imaging and/or lab abnormalities with the patient and haveinstructed them the need for further evaluation and workup with their primary care doctor. I have provided the patient with a paper copy of the abnormality. The laboratory results, imaging results and other diagnostic exam results were reviewed in the EMR. EKG Interpretation Critical Care Time None Medical Decision Making Medications - No data to display Clinical Impressions as of 04/09/241754 Pain Traumatic medial retinacular tear of right knee, initial encounter Patient was evaluated. I contacted Dr. Dominguez, orthopedist on-call. He states that he actually saw the patient earlier today did x-rays and did not realize the patient was going to be coming to the emergency department. He requests ultrasound to rule out DVT and a CT of the knee. The ultrasound already been ordered at triage and it was negative for evidence of DVT. We will add on a CBC and a Chem-7. Lab work is negative. CAT scan shows lateral subluxation of the patella suggesting a retinaculartear. There is severe osteopenia without acute fracture. Patient has an external fixator which is keeping his leg in an extended position so he has not been able to flex the knee so there is no concer n regarding patellar ligament or quadriceps tendon injury. Procedures Procedures Diagnosis 1. Pain Vascular US duplex lower extremity venous left Vascular US duplex lower extremity venous left Left knee pain/retinacular tear Disposition Data Unavailable Discharge ED Prescriptions None Physician Attestation CHONG Jacinto 04/09/24 1558 CHONG Jacinto 04/09/24 1744 CHONG Jacinto 04/09/241753 Cosigned by Kush Leon MD at 04/09/2024 10:49 PM EST documented in this encounter Plan of Treatment [...] EST XR KNEE 1-2 VIEWS LEFT STAT 04/09/2024 3:59 PM EST VAS US DUPLEX LOWER EXT VENOUS LEFT STAT 04/09/2024 2:59 PM EST Pain documented in this encounter Results * CT Lower Extremity wo Contrast [...] Signed Date: 04/09/2024 17:06 ET Workstation ID: [id number] Transcribed By: Self Edit Transcribed Date: 04/09/2024 [...] is severe osteoarthritis as well with near kmyv-nd-veil articulation. ??The quadriceps and patellar tendons are [...] There is severeosteoarthritis as well with near rjgi-go-rupp articulation. Thequadriceps and patellar tendons are not [...] Signed Date: 04/09/2024 17:06 ET Workstation ID: [id number] Transcribed By: Self Edit Transcribed Date: 04/09/2024 17:02 ET [facility] IMG CT PROCEDURES Final Resu lt * (ABNORMAL) CBC auto differential (04/09/2024 4:07 PM EST) WBC 7.1 4.8 - 10.8 K/mcL LAB HEMETOLOGY METHOD 04/09/2024 4:14 PM [facility] RBC 5.10 4.50 - 5.50 M/mcL LAB HEMETOLOGY METHOD 04/09/2024 4:14 PM [facility] Hemoglobin 13.0(L) 13.5 - 17.5 g/dL LAB HEMETOLOGY METHOD 04/09/2024 4:14 PM [facility] Hematocrit 41.8(L) 42.0 - 54.0 % LAB HEMETOLOGY METHOD 04/09/2024 4:14 PM [facility] MCV 82.3 79.0 - 98.0 FL LAB HEMETOLOGY METHOD 04/09/2024 4:14 PM [facility] MCH 25.6(L) 27.0 - 32.0 pcg LAB HEMETOLOGY METHOD 04/09/2024 4:14 PM [facility] MCHC 31.1(L) 32.0 - 37.0 g/dL LAB HEMETOLOGY METHOD 04/09/2024 4:14 PM [facility] RDW 16.4(H) 11.0 - 15.0 % LAB HEMETOLOGY METHOD 04/09/2024 4:14 PM [facility] Platelets 383 130 - 400 K/mcL LAB HEMETOLOGY METHOD 04/09/2024 4:14 PM [facility] MPV 9.0 7.0 - 11.0 FL LAB HEMETOLOGY METHOD 04/09/2024 4:14 PM [facility] NRBC 0.0 <1.0 % LAB HEMETOLOGY METHOD 04/09/2024 4:14 PM [facility] NRBC Absolute 0.00 <0.10 K/mcL LAB HEMETOLOGY METHOD 04/09/2024 4:14 PM [facility] Neutrophils Relative 53.4 % LAB HEMETOLOGY METHOD 04/09/2024 4:14 PM [facility] Lymphocytes Relative 35.0 % LAB HEMETOLOGY METHOD 04/09/2024 4:14 PM [facility] Monocytes Relative 8.3 % LAB HEMETOLOGY METHOD 04/09/2024 4:14 PM [facility] Eosinophils Relative 2.7 % LAB HEMETOLOGY METHOD 04/09/2024 4:14 PM [facility] Basophils Relative 0.3 % LAB HEMETOLOGY METHOD 04/09/2024 4:14 PM [facility] Immature Granulocytes Relative 0.3 % LAB HEMETOLOGY METHOD 04/09/2024 4:14 PM [facility] Neutrophils Absolute 3.82 1.50 - 7.00 K/mcL LAB HEMETOLOGY METHOD 04/09/2024 4:14 PM [facility] Lymphocytes Absolute 2.50 1.00 - 5.00 K/mcL LAB HEMETOLOGY METHOD 04/09/2024 4:14 PM [facility] Monocytes Absolute 0.59 0.20 - 1.00 K/mcL LAB HEMETOLOGY METHOD 04/09/2024 4:14 PM [facility] Eosinophils Absolute 0.19 0.00 - 0.50 K/mcL LAB HEMETOLOGY METHOD 04/09/2024 4:14 PM [facility] Basophils Absolute 0.02 0.00 - 0.20 K/mcL LAB HEMETOLOGY METHOD 04/09/2024 4:14 PM [facility] Immature Granulocytes Absolute 0.02 0.00 - 0.03 K/mcL LAB HEMETOLOGY METHOD 04/09/2024 4:14 PM [facility] Blood Venous blood specimen / Unknown Venipuncture / Unknown 04/09/2024 4:07 PM EST 04/09/2024 4:11 PM EST us [facility] LAB BLOOD ORDERABLES Final R esult [facility] [address] [place] [address], * Basic Metabolic Panel (BMP) (04/09/2024 4:07 PM EST) Sodium 142 133 - 145 mmol/L LAB CHEMISTRY METHOD 04/09/2024 4:45 PM [facility] Potassium 4.0 3.5 - 5.5 mmol/L LAB CHEMISTRY METHOD 04/09/2024 4:45 PM [facility] Chloride 110 96 - 110 mmol/L LAB CHEMISTRY METHOD 04/09/2024 4:45 PM [facility] CO2 26 21 - 32 mmol/L LAB CHEMISTRY METHOD 04/09/2024 4:45 PM [facility] Anion Gap 6 3 - 11 LAB CHEMISTRY METHOD 04/09/2024 4:45 PM [facility] Glucose 82 70 - 100 mg/dL LAB CHEMISTRY METHOD 04/09/2024 4:45 PM [facility] BUN 9 5 - 25 mg/dL LAB CHEMISTRY METHOD 04/09/2024 4:45 PM [facility] Creatinine 0.80 0.70 - 1.30 mg/dL LAB CHEMISTRY METHOD 04/09/2024 4:45 PM [facility] eGFR 118 >=60 mL/min/1. 73m2 LAB CHEMISTRY METHOD 04/09/2024 4:45 PM [facility] Comment:Calculation based on the??Chronic Kidney Disease Epidemiology Collaboration (CKD-EPI) equation refit??without adjustment for race. BUN/Creatinine Ratio 11.3 LAB CHEMISTRY METHOD 04/09/2024 4:45 PM EST [facility] Calcium 9.1 8.5 - 10.5 mg/dL LAB CHEMISTRY METHOD 04/09/2024 4:45 PM EST [facility] Blood Venous blood specimen / Unknown Venipuncture / Unknown 04/09/2024 4:07 PM EST 04/09/2024 4:11 PM EST us [facility] LAB BLOOD ORDERABLES Final R esult [facility] [address] [place] [address], * XR Knee 1-2 Views Left (04/09/2024 3:59 PM EST) Anatomical Region Laterality Modality Lower [...] Signed Date: 04/09/2024 16:16 ET Workstation ID: [id number] Transcribed By: Self Edit Transcribed Date: 04/09/2024 [...] Signed Date: 04/09/2024 16:16 ET Workstation ID: [id number] Transcribed By: Self Edit Transcribed Date: 04/09/2024 16:14 ET us Marting Arlene Elizondo DO IMG XR PROCEDURES Final R esult * Vascular US duplex lower extremity venous left (04/09/2024 2:59 PM EST) Anatomical Region Laterality Modality Vascular, Abdomen Ultrasound 04/09/2024 2:53 PM EST Impressions 04/09/2024 2:53 PM EST NO LEFT LOWER EXTREMITY DEEP VENOUS THROMBOSIS. -------- FINAL REPORT -------- Dictated By: HARSHAD POSEY Dictated Date: 04/09/2024 14:53 ET Assigned Physician: HARSHAD POSEY Reviewed and Electronically Signed By: HARSHAD POSEY Signed Date: 04/09/2024 14:53 ET Workstation ID: [id number] Transcribed By: Self Edit Transcribed Date: 04/09/2024 [...] calf veins are patent Procedure Note Harshad Posey MD - 04/09/2024 PROCEDURE: VAS US DUPLEX [...] -------- FINAL REPORT -------- Dictated By: HARSHAD POSEY Dictated Date: 04/09/2024 14:53 ET Assigned Physician: HARSHAD POSEY Reviewed and Electronically Signed By: HARSHAD POSEY Signed Date: 04/09/2024 14:53 ET Workstation ID: [id number] Transcribed By: Self Edit Transcribed Date: 04/09/2024 14:53 ET Maria Luz Elizondo DO CV VASCULAR PROCEDURES Fi nal Result documented in this encounter Visit Diagnoses Diagnosis Pain- Primary Generalized pain Traumatic medial retinacular tear of right knee, initial encounter documented in this encounter Administered Medications Inactive Administered Medications - up to 3 most recent administrations Medication Order MAR Action Action Date Dose Rate Site acetaminophen (TYLENOL) tablet 1,000 mg 1,000 mg, oral, Once, On 04/09/24 at 1818, For 1 dose Given 04/09/2024 6:26 PM EST 1,000 mg documented in this encounter Active and Recently Administered Medications Times are shown in EST. Scheduled Medication Order 04/07/2024 04/08/2024 04/09/2024 acetaminophen (TYLENOL) tablet 1,000 mg (COMPLETED) 1,000 mg, oral, Once, On e 04/09/24 at 1818, For 1 dose 1826 (Given - Provid er: Floridalma Parra RN) documented in this encounter Orders Medications Ordered That Robi ht Not Have Been Administered Count Last Ordered Date First Ordered Date acetaminophen (TYLENOL) tablet 1,000 mg 1 0 04/09/2024 documented in this encounter Care Teams Mechanical Process Engineer Relationship Specialty Start Date End Date Livan Rosales MD [address] [place] [address] [address] GRISELDA Moore PCP - General Internal Medicine 01/17/24 documented as of this encounter
--- OUTSIDE RECORDS SUMMARY | 2024-04-15 17:23 | XMS_ITS ---
Care Plan - [facility] Created on: April 15, 2024 Danielle Villar : 1985 Sex: Male Author Organization [facility] Address [address] [place] [address] Phone Care Team Providers Care Supervisor Park Workers Name Role Phone Livan Rosales Primary Care Provider [phone] [facility] Unavailable [phone]
--- OUTSIDE RECORDS SUMMARY | 2024-04-15 17:23 | XMS_ITS | Encounter Summary ---
Author Organization [facility] Address [address] [place] [address] Care Team Providers Care Therapeutic Activities Services Worker Name Role Phone Livan Rosales MD Primary Care Provider + [phone] Encounter Details Date Type Department Care Team (Late st Contact Info) Description 02/21/2024 Lab Requisition [facility] - Main Lab [address] [facility] [place] [address] Berry Garcia MD [address] [facility] [address] [place], [address] Tachycardia, unspecified Social History Tobacco Use [...] care for your loved ones. For example, school child care attendant or elderly care for an older adult? [...] Basic metabolic panel (02/21/2024 5:32 AM EST) [facility] Signature Sodium 139 133 - 145 mmol/L LAB CHEMISTRY METHOD 02/21/2024 10:07 AM [facility] Potassium 4.3 3.5 - 5.5 mmol/L LAB CHEMISTRY METHOD 02/21/2024 10:07 AM [facility] Chloride 107 96 - 110 mmol/L LAB CHEMISTRY METHOD 02/21/2024 10:07 AM [facility] CO2 26 21 - 32 mmol/L LAB CHEMISTRY METHOD 02/21/2024 10:07 AM [facility] Anion Gap 6 3 - 11 LAB CHEMISTRY METHOD 02/21/2024 10:07 AM [facility] Glucose 86 70 - 100 mg/dL LAB CHEMISTRY METHOD 02/21/2024 10:07 AM [facility] BUN 8 5 - 25 mg/dL LAB CHEMISTRY METHOD 02/21/2024 10:07 AM EST [facility] Creatinine 0.79 0.70 - 1.30 mg/dL LAB CHEMISTRY METHOD 02/21/2024 10:07 AM [facility] eGFR 118 >=60 mL/min/1. 73m2 LAB CHEMISTRY METHOD 02/21/2024 10:07 AM [facility] Comment:Calculation based on the??Chronic Kidney Disease Epidemiology Collaboration (CKD-EPI) equation refit??without adjustment for race. BUN/Creatinine Ratio 10.1 LAB CHEMISTRY METHOD 02/21/2024 10:07 AM [facility] Calcium 8.3(L) 8.5 - 10.5 mg/dL LAB CHEMISTRY METHOD 02/21/2024 10:07 AM [facility] Blood Venous blood specimen / Unknown Venipuncture / Unknown 02/21/2024 5:32 AM EST 02/21/2024 9:14 AM EST us Berry Garcia MD LAB BLOOD ORDERABLES Final Resul t [facility] [address] [place] [address], [place] [phone] * (ABNORMAL) Complete blood count (02/21/2024 5:32 [...] MD LAB BLOOD ORDERABLES Final Resul t [facility] [address] [place] [address], documented in this encounter Visit Diagnoses Diagnosis Tachycardia, unspecified documented in this encounter Care Teams Therapeutic Activities Services Worker Relationship Specialty Start Date End Date Livan Rosales MD [address] [facility] [facility] [address] GRISELDA Moore PCP - General Internal Medicine 01/17/24 documented as of this encounter
--- OUTSIDE RECORDS SUMMARY | 2024-04-15 17:23 | XMS_ITS | Clinical Summary ---
Author Organization [facility] Address [address] [place] [address] Phone Care Team Providers Care Kidney Trimmer Name Role Phone Livan Rosales Primary Care Provider [phone] [facility] Un[facility] [phone] Reason for Visit and Chief Complaint Post Op Visit/Follow Up Plan of Treatment Pending Tests Order Diagnosis Results Due Ordering P rovider Follow Up - Appointment 1 Month Unsp fra cture of left patella, init for clos fx 02/15/24 Elie Ruiz MD Last Documented On 5 10:45AM ; [facility] Future Appointments Date Time Location Provi dylan Post Op Visit/Follow Up 04/16/2024 9:00AM [place] [facility] Leann Esquivel MD Last Documented On 5 10:31AM ; [facility]Follow Up 04/29/2024 9:20AM [place] [facility] Leann Esquivel MD Last Documented On 5 10:49AM ; [facility] Assessments Includes: Assessments from this encounter [...] not to. Seen today with the medical voucher clerk in the room. States the pain is improved. States there is no numbness or tingling. Physical examination Karlee in position. Wound healing well. No signs of infection or drainage. Pin sites are healthy and clean. Warm well-perfused toes. Able to wiggle his toes and his ankle. Sensation intact light touch in his foot. Assessment and plan Continue nonweightbearing left lower extremity. Hills removed. Steri-Strips placed. Pin sites cleaned and [...] Post Op Visit/Follow Up Elie Ruiz MD [facility], 02/14/19 25 9:40AM 9:57AM Insurance Includes: Active Insurance Policies Plan Name Member ID Group # Subscriber Relationship Effect brianda Dates 1 - [facility] [id number] Danielle Mccormack Clinical Notes Includes: Clinical Notes from this encounter * Progress note Date Encounter Last Documented by 02/15/2024 Post Op Visit/Follow Up Last doc umented on 02/15/2024; 10:45 AM, lEie Ruiz MD[facility] StartCited - Unsp fracture of left [...] not to. Seen today with the medical voucher clerk in the room. States the pain is improved. States there is no numbness or tingling. Physical examination Hills in position. Wound healing well. No signs of infection or drainage. Pin sites are healthy and clean. Warm well-perfused toes. Able to wiggle his toes and his ankle. Sensation intact light touch in his foot. Assessment and plan Continue nonweightbearing left lower extremity. Hills removed. Steri-Strips placed. Pin sites cleaned and covered. Follow-up in 4 weeks. Discussed that he will likely be Ex-Fix in a straight leg position for another 2 months.Spent over 20 minutes today in the office with him discussing that he needs to follow instructions and be compliant
--- OUTSIDE RECORDS SUMMARY | 2024-04-15 17:23 | XMS_ITS ---
Author Organization [facility] Address [address] [place] [address] Phone Care Team Providers Care Field Property Loss Specialist Name Role Phone Livan Rosales Primary Care Provider [phone] [facility] Un[facility] [phone] Plan of Treatment Future Appointments Date Time Location Provi dylan Post Op Visit/Follow Up 04/16/2024 9:00AM [place] [facility] Leann Esquivel MD Last Documented On 5 10:31AM ; [facility] Post Op Visit/Follow Up 04/29/2024 9:20AM [place] [facility] Leann Esquivel MD Last Documented On 5 10:49AM ; [facility] Assessments Includes: Assessments for all patient encounters No Assessments Recorded Medical Equipment - Implanted Devices Includes: Current and historical Devices No Medical Equipment Recorded Medications Administered Includes: Administered Medications in patient's chart No Administered Medications Recorded Results Includes: Results from 04/16/2023 through 04/15/2024 No Results Recorded For Specified Dates History of Present Illness History of Present Illness not supported for this document type No History of Present Illness Recorded Social History No Social History Recorded - Smoking Status Unknown Procedures and Surgical History Includes: Procedures from 04/16/2023 through 04/15/2024 Procedures Code Diagnosis Performing Provider Service Location Service Date X-Ray Exam Of Knee, 3 views (Left) 92728 Pain in left leg Jericho Dominguez MD [facility] 04/09/2024 Last Documented On 5 10:31AM ; [facility] X-Ray of tibia and fibia, 2 views (Left) 06590 Pain in left leg Jericho Dominguez MD [facility] 04/09/2024 Last Documented On 5 10:31AM ; [facility], X-Ray of Femur, minimum 2 views (Left) 67777 Pain in left leg Jericho Dominguez MD [facility], 04/09/2024 Last Documented On 5 10:31AM ; [facility], Repair/Graft 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, Bus Cleaner Surgeon) 88429 Strain of musc/tend at lower leg level, left leg, init Tiburcio Johnson MD [facility] 01/31/2024 Last Documented On 4 3:12PM ; [facility], Apply Bone Fixation Device (Left, Bus Cleaner Surgeon) 14272 Strain of musc/tend at lower leg level, left leg, init Tiburcio Johnson MD [facility] 01/31/2024 Last Documented On 4 3:12PM ; [facility], Repair/Graft 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) 61981 Strain of musc/tend at lower leg level, left leg, init Leann Esquivel MD [facility] 01/31/2024 Last Documented On 4 3:12PM ; [facility], Apply Bone Fixation Device (Left) 71199 Pain due to internal orthopedic prosth dev/grft, init Leann Esquivel MD [facility] 01/31/2024 Last Documented On 4 3:12PM ; [facility], Repair Of 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, Bus Cleaner Surgeon, 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 producing farm) 39898 Strain of musc/tend at lower leg level, left leg, init Jolynn SCHWARZ [facility] 01/18/2024 Last Documented On 5 1:36PM ; [facility], Repair Of 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) 76350 Strain of musc/tend at lower leg level, left leg, init Tiburcio Johnson MD [facility] 01/18/2024 Last Documented On 4 2:46PM ; [facility], Medical History Includes: Medical History in patient's [...] Physical Exam Recorded Encounters Includes: Encounters from 04/16/2023 through 04/15/2024 Encounter Provider Location Date Check-In Time Check-Out Time Diagnosis Post Op Visit/Follow Up [facility] 10:20AM 11:43AM Post Op Visit/Follow Up [facility]ivel [facility] 04/01/19 10:20AM 10:50AM Post Op Visit/Follow Up Jericho Dominguez MD [facility] 03/18/19 9:00AM 9:35AM Post Op Visit/Follow Up Elie Ruiz MD [facility] 02/14/19 9:40AM 9:57AM Insurance Includes: Active Insurance Policies Plan Name Member ID Group # Subscriber Relationship Effect brianda Dates 1 - [facility] [id number] Danielle Mccormack Clinical Notes Includes: Signed Clinical Notes starting from 01/23/2022 * Progress note Date Encounter Last Documented by 04/09/2024 Post Op Visit/Follow Up Last doc umented on 04/09/2024; 11:46 AM, Jericho Dominguez MD; [facility] Chief Complaint Dx: Left patella tendon rupture S/p repair: 01/18/2024 S/p revision repair with application of external fixator 01/31/2024 Most recent office visit 04/01/2024 38-year-old male well-known to service returns today Patient states he had a sudden onset of pain during a nonweightbearing episode complains of left lower extremity pain moderate to severe since then Denies numbness ting paresthesias denies fevers chills sweats Expresses frustration with the duration of the external fixator Patient states he was attempted to place a sock in his foot and felt a sudden pop. He states he did not flex the knee no was weightbearing on at this time He states the frame has remained rigid and has not loosened Complains of a Physical exam alert oriented nondistressed 38-year-old male Left lower extremity There is no swelling Pin sites: Pristine There is no palpable defect noted in the extensor mechanism. His calf is nontender to palpation Foot is sensate dorsoplantar deep peroneal Good capillary refill distally No buttock pain or low back pain Tenderness to palpation mid femur X-rays left knee 2 views Negative for patella dayana, negative for patella baja negative for fracture Imaging studies left femur/tibia Plan: Referral to ER #1 rule out DVT with ultrasound 2. Laboratory values CBC ESR CRP 3. Imaging studies Patient is most likely not a candidate for MRI secondary to external fixator pins will attempt CT with soft tissue enhancement and an ultrasound Awaiting results I have explained in detail the importance of retaining to frame as long as possible Patient understands that if the Frain is removed early or the repair fails treatment options are limited would include allograft with a increased failure rate and increased infection rate Arthrodesis which would require total loss of knee motion Continued/permanent use of a drop lock brace and Left above-knee amputation KRISTI Dominguez MD * Progress note Date Encounter Last Documented by 04/01/2024 Post Op Visit/Follow Up Last doc umented on 04/01/2024; 10:54 AM, Leann Esquivel MD; [facility], Top of Document Dx: Left patella tendon [...] is imperative that he follows these restrictions. * Progress note Date Encounter Last Documented by 03/18/2024 Post Op Visit/Follow Up Last doc umented on 03/18/2024; 9:24 AM, Jericho Dominguez MD; [facility], Chief Complaint Dx: Left patella tendon rupture [...] on 02/15/2024; 10:45 AM, Elie Ruiz MD; [facility], Plan StartCited - Unsp fracture of left [...] not to. Seen today with the medical administrative specialist in the room. States the pain is improved. States there is no numbness or tingling. Physical examination [place] in position. Wound healing well. No signs of infection or drainage. Pin sites are healthy and clean. Warm well-perfused toes. Able to wiggle his toes and his ankle. Sensation intact light touch in his foot. Assessment and plan Continue nonweightbearing left lower extremity. [place] removed. Steri-Strips placed. Pin sites cleaned and covered. Follow-up in 4 weeks. Discussed that he will likely be Ex-Fix in a straight leg position for another 2 months.Spent over 20 minutes today in the office with him discussing that he needs to follow instructions and be compliant
--- OUTSIDE RECORDS SUMMARY | 2024-04-15 17:23 | XMS_ITS | Data Portability ---
Author Organization [facility], Main Office Address [address] [place] [address] Care Team Providers Care Weave Defect Charting Clerk Name Role Phone [facility] OTHER Assessment No assessment recorded. Plan of [...] Details Recorded Time Left patellar tendon rupture [id number] 9100 Active [address], [place], [address], [facility] 5 05:39:03 Acute pain 140892075 Active 2024 [address], [place], [address], [facility] 5 05:39:18 Fracture of upper end of fibula 81218095 Active 20[address], [address], [place], [address], [facility] 5 05:40:07 Anxiety 13405801 Active 20[address], [place], [address], [facility] 5 05:40:50 Attention deficit hyperactivi ty disorder 931878350 Active 20[address], [place], [address], [facility]y 5 05:40:57 Tachycardia 7328192 Active [address], [address], [place], [address], [facility] 5 05:41:05 Asthenia 89660908 Active 20[address], [address], [place], [address], [facility] 5 05:42:19 Obstructive sleep apnea syndrome 39432123 Active 20[address], [address], [place], [address], [facility] ipsy 5 05:42:29 Problem Notes None recorded. Medical [...] 71 mm[Hg] GENET WHITE NP [address], [address], [place], [address], [facility] ipsy 5 14:20:45 Social History None recorded. Functional Status None recorded. Mental Status None recorded. Family History Nothing Reported. Medical History No medical history recorded. Gynecological HistoryNo gynecological history recorded. Obstetrics History GPAL:G 0 P 0 0 0 0 Past Encounters Encounter ID Performer Location Encounter Start Date Encounter Closed Date Diagnosis/Indication Diagnosis SNOMED-CT Code Diagnosis ICD10 Code Diagnosis Note [id number] [place] [address] 02/20/2024 11:22:09 02/21/2024 12:21:51 Fracture of upper end of fibula 99317605 S89.D Left patellar tendon rupture requiring revision and placement of external fixator by Dr. Esquivel.Nonw eightbeari ng left lower extremityc ontinue to use walker or crutches for ambulation .continue oxycodone 5-10 mg q4h prncontinu e gabapentin 200 mg bidasa 81 mg bid x 3 moscontinu e PT Ara/up with orthopedic surgery as planned Left bowser lar tendon rupture [id number] 6469672 S76.112D see above Acute pain 162251483 R52 see pain med plan abovemonit or painmonito r utilizatio n of narcs and wean as tolerated Asthenia 59627371 R53.1 continue PT OTindepend ent at baseline Tachycardia 8081636 R00. 0 tachycardi c 150s with [id number] -130s at restdrinki ng a monster and on adderall (see HPI)check HR prior to adderall administra tionwill obtain an ECG to make sure hes not in afibmonito r vitals qshift x 3 days Obstructiv e sleep apnea syndrome 58485251 G47.33 not on CPAPshould have outpatient sleep study Attention deficit hyperactivity disorder 210942469 F90.9 continue adderall 35 mg dailymonit or HR prior to giving med Anxiety 89494574 F41.9 continue sertraline 50 mg qhscontinu e ambien 5 mg qhs prn for sleeprefus ed psych eval with health drive [id number] GENET WHITE NP [facility] [address] [place] [address] 02/26/2024 14:20:03 02/28/2024 08:26:45 Fracture of upper end of fibula 90679178 S89.202D Left patellar tendon rupture requiring revision [...] go home. Left bowser lar tendon rupture [id number] 6562951 S76.112D see above Acute pain 468249726 R52 Pain controlled - continue APAP, gabapentin , and oxycodone. monitor pain, adjust meds as needed.mon itor utilizatio n of narcs and wean as tolerated Asthenia 94789164 R53.1 continue PT OTindepend ent at baseline Tachycardia 1197315 R00. 0 Monitor HR, check prior to adderall use daily.Avoi d caffeine - encouraged pt. to drink decaf coffee and avoid other drinks with high caffeine levels Check with nsg. re: EKG results Obstructiv e sleep apnea syndrome 10656875 G47.33 not on CPAPshould have outpatient sleep study Attention deficit hyperactivity disorder 888733886 F90.9 continue adderall 35 mg dailymonit or HR prior to giving med Anxiety 16271718 F41.9 continue sertraline 50 mg qhscontinu e ambien 5 mg qhs prn for sleeprefus ed psych eval with [employer] [address] [id number] JASPAL BENDER, TRUCK DOCK MATERIAL MOVER-C [facility] [address] [place] [address] 03/05/2024 08:14:56 03/06/2024 15:48:02 Fracture of upper end of fibula 29611701 S89.202D Left patellar tendon rupture requiring revision [...] surgery fe Left bowser lar tendon rupture [id number] 5257901 S76.112D see above Asthenia 03100418 R53.1 returning home tomorrowin dependent at baselineus ing crutches and cane to ambulateho me PT OT set up Tachycardia 8460006 R00. 0 Monitor HR while on adderallAv oid caffeine - encouraged pt. to drink decaf coffee and avoid other drinks with high caffeine levels f/up with pcp Obstructiv e sleep apnea syndrome 15913040 G47.33 not on CPAPshould have outpatient sleep study Attention deficit hyperactivity disorder 350845776 F90.9 continue adderall 35 mg dailymonit or HR prior to taking medf/up with pcp Anxiety 13706189 F41.9 continue sertraline 50 mg qhscontinu e [...] Steve Member ID Guarantor Name 02/20/2024 1 [facility] - DOS ON OR AFTER 2022 - MEDICARE ADVANTAGE [place] (MEDICARE REPLACEMENT/ADV ANTAGE - PPO) Danielle Villar [id number] Danielle Villar 02/26/2024 1 [facility] - DOS ON OR AFTER 2022 - [place]V ANTAGE - PPO) Danielle Villar [id number] Danielle Villar 03/05/2024 1 [facility] - DOS ON OR AFTER 2022 - [place]IC[place]AGE [place]/ADV ANTAGE - PPO) Danielle Villar [id number] Danielle Villar Notes Date Note Type Note Provider Name and Address Organization Details Recorded Time 02/20/2024 text/html Pt is a 38-year- old male being seen today for a transfer of care. Pt has a recent fall with left patellar tendon rupture s/p repair on 01/18/2024. Once stable he was transferred to [place] to complete rehab. He was seen today [...] OSMAR, anxiety JASPAL BENDER NP-C [address], [address], [place], [address], [facility] 02/21/2024 06:04:41 02/26/2024 text/html Danielle is [...] OSMAR, anxiety GENET WHITE NP [address], [address], [place], [address], [facility] 02/26/2024 14:45:59 03/05/2024 text/html Pt is a 38-year- old male being seen today for a discharge summary visit. Pt has a recent fall with left patellar tendon rupture s/p repair on 01/18/2024. Once stable he was transferred to [place] to complete rehab. Patient is being discharge [...] obesity, OSMAR, anxiety [facility] [address], [address], [place], [address], [facility] - ipsy 03/05/2024 09:04:12 OBGyn Episode No OBEpisode recorded.
--- OUTSIDE RECORDS SUMMARY | 2024-04-15 17:23 | XMS_ITS | Clinical Summary ---
Author Organization [facility] Address [address] [place] [address] Phone Care Team Providers Care Land Mobile Radio Technician Name Role Phone Livan Rosales Primary Care Provider [phone] [facility] Un[facility] [phone] Reason for Visit and Chief Complaint Post Op Visit/Follow Up Plan of Treatment Future Appointments Date Time Location Provi dylan Post Op Visit/Follow Up 04/16/2024 9:00AM [place] [facility] Leann Esquivel MD Last Documented On 5 10:31AM ; [facility] Post Op Visit/Follow Up 04/29/2024 9:20AM [facility] Leann Esquivel MD Last Documented On 5 10:49AM ; [facility] Assessments Includes: Assessments from this encounter [...] Procedures and Surgical History Includes: Procedures from this encounter Procedures Code Diagnosis Performing Provider Service Location Service Date X-Ray of Femur, minimum 2 views (Left) 61885 Pain in left leg Jericho Dominguez MD [facility] 04/09/2024 Last Documented On 5 10:31AM ; [facility] X-Ray of tibia and fibia, 2 views (Left) 47540 Pain in left leg Jericho Dominguez MD [facility] 04/09/2024 Last Documented On 5 10:31AM ; [facility] X-Ray Exam Of Knee, 3 views (Left) 74955 Pain in left leg Jericho Dominguez MD [facility] 04/09/2024 Last Documented On 10:31AM ; [facility] Medical History Includes: Medical History addressed during [...] Post Op Visit/Follow Up Jericho Dominguez MD [facility] 04/09/19 10:20AM 11:43AM Insurance Includes: Active Insurance Policies Plan Name Member ID Group # Subscriber Relationship Effect brianda Dates 1 - [facility] [id number] Danielle Mccormack Clinical Notes Includes: Clinical Notes from this encounter * Progress note Date Encounter Last Documented by 04/09/2024 Post Op Visit/Follow Up Last doc umented on 04/09/2024; 11:46 AM, Jericho Dominguez MD; [facility] Chief Complaint Dx: Left patella tendon rupture [...]
== END 2024-04-15 16:23 | disposition home or self-care (01) ==
PROVIDERS: PCP Internal Medicine; Visit Provider Internal Medicine
DX: E11.65 Type 2 diabetes mellitus with hyperglycemia (principal); F10.20 Alcohol dependence, uncomplicated; E66.01 Morbid (severe) obesity due to excess calories; Z68.42 Body mass index [BMI] 45.0-49.9, adult; F25.0 Schizoaffective disorder, bipolar type; S86.812S Strain of other muscle(s) and tendon(s) at lower leg level, left leg, sequela; S89.91XS Unspecified injury of right lower leg, sequela; R60.1 Generalized edema; K21.9 Gastro-esophageal reflux disease without esophagitis; E78.00 Pure hypercholesterolemia, unspecified; E55.9 Vitamin D deficiency, unspecified; J45.20 Mild intermittent asthma, uncomplicated

== ENCOUNTER → 2024-04-15 14:35 | Outpatient (BNVA) | payer OTHER, SELFPAY | PROVIDERS: PCP Internal Medicine; Visit Provider Internal Medicine | DX: S86.812S Strain of other muscle(s) and tendon(s) at lower leg level, left leg, sequela (principal); S89.91XS Unspecified injury of right lower leg, sequela; R60.1 Generalized edema; K21.9 Gastro-esophageal reflux disease without esophagitis; E78.00 Pure hypercholesterolemia, unspecified; E11.65 Type 2 diabetes mellitus with hyperglycemia; E59 Dietary selenium deficiency; J45.20 Mild intermittent asthma, uncomplicated; K59.04 Chronic idiopathic constipation; M54.50 Low back pain, unspecified; F10.20 Alcohol dependence, uncomplicated; G47.00 Insomnia, unspecified; F25.0 Schizoaffective disorder, bipolar type; E66.01 Morbid (severe) obesity due to excess calories; Z68.42 Body mass index [BMI] 45.0-49.9, adult; F17.200 Nicotine dependence, unspecified, uncomplicated; Z71.3 Dietary counseling and surveillance; Z71.6 Tobacco abuse counseling | CPT/HCPCS: 96127; 99212 ==

== ENCOUNTER 2024-05-18 09:33 | Outpatient (AMB) | payer OTHER, SELFPAY ==
--- OUTSIDE RECORDS SUMMARY | 2024-05-18 09:35 | XMS_ITS ---
Care Plan - [facility] Created on: May 18, 2024 Danielle Villar : 1985 Sex: Male Author Organization [facility] Address [address] [place] [address] Phone Care Team Providers Care Aba Therapist Name Role Phone Livan Rosales Primary Care Provider [phone] [facility] Unavailable [phone]
--- OUTSIDE RECORDS SUMMARY | 2024-05-18 09:35 | XMS_ITS | Clinical Summary ---
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 This document has been electronically signed by: Ciaran Turcios MD on 04/24/2024 22:31:54 Narrative 04/24/2024 10:31 PM EDT INDICATION: pain, paresthesias, external fixation Arterial duplex ultrasound left lower extremity Comparison: None Findings: Proximal anterior tibial artery is not seen due to external fixation. Otherwise continuous, pulsatile flow with normal waveforms from common femoral arteries through the posterior tibial and dorsalis pedis arteries. No focal stenosis, aneurysm or occlusion identified. Velocities are slightly elevated in the PROGRAM DEVELOPMENT MANAGER and SFA with normal velocities distally. Procedure Note Ciaran Turcios MD - 04/24/2024 INDICATION: pain, paresthesias, external fixation Arterial duplex ultrasound left lower extremity Comparison: None Findings: Proximal anterior tibial artery is not seen due to external fixation. Otherwise continuous, pulsatile flow with normal waveforms from common femoral arteries through the posterior tibial and dorsalis pedisarteries. No focal stenosis, aneurysm or occlusion identified. Velocities are slightly elevated in the PROGRAM DEVELOPMENT MANAGER and SFA with normalvelocities distally. IMPRESSION: No focal stenosis, aneurysm or occlusion identified. This document has been electronically signed by: Ciaran Turcios MD on 04/24/2024 22:31:54 us Fifi SCHWARZ CV VASCULAR PROCEDURES Final Re sult * Vascular US Duplex Lower Extremity Venous Left (04/24/2024 9:42 PM EDT) Only the most recent of2 resultswithin the time period is included. Anatomical Region Laterality Modality Vascular, Abdomen Ultrasound 04/24/2024 10:3 6 PM EDT Impressions 04/24/2024 10:36 PM EDT 1. Negative for left lower extremity deep vein thrombosis in the CFV and GSV. Distal veins were not assessed. This document has been electronically signed by: Ciaran Turcios MD on 04/24/2024 22:36:21 Narrative 04/24/2024 10:36 PM EDT INDICATION: edema Venous duplex ultrasound left lower extremity Comparison: None Findings: The common femoral vein and proximal greater saphenous veins are fully compressible with normal Doppler color flow and spectral tracings. Study was not completed due to patient pain. Procedure Note Ciaran Turcios MD - 04/24/2024 INDICATION: edema Venous duplex ultrasound left lower extremity Comparison: None Findings: The common femoral vein and proximal greater saphenous veins are fully compressible with normal Doppler color flow and spectral tracings. Study was not completed due to patient pain. IMPRESSION: 1. Negative for left lower extremity deep vein thrombosis in the CFV and GSV. Distal veins were not assessed. This document has been electronically signed by: Ciaran Turcios MD on 04/24/2024 22:36:21 us Fifi SCHWARZ CV VASCULAR PROCEDURES Final Re sult * CT Lower Extremity wo Contrast Left [...] -------- FINAL REPORT -------- Dictated By: Mónica Grag Dictated Date: 04/09/2024 17:02 ET Assigned Physician: Mónica Garg Reviewed and Electronically Signed By: Mónica Garg Signed Date: 04/09/2024 17:06 ET Workstation ID: [id number] Transcribed By: Self Edit Transcribed Date: 04/09/2024 [...] is severe osteoarthritis as well with near [id number]-oa-lzsi articulation. ??The quadriceps and patellar tendons are [...] There is severeosteoarthritis as well with near zjkw-rt-[id number] articulation. 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 Do not modify or discontinue any currently active code status orders. * Full Code - Default Date Activated Date Inactivated Comments 05/14/2024 2:50 PM 05/14/2024 5:52 PM This is order is used when code status has not been discussed with the patient, or code status is otherwise unknown/unconfirmed To update the patient's code status, place a code status order. Do not modify or discontinue any currently active code status orders. * Full Code - Default Date Activated Date Inactivated Comments 01/27/2024 4:05 [...] currently active code status orders. Care Teams Art Class Model Relationship Specialty Start Date End Date Livan Rosales MD [address] [place] [address] [address] [place], [place] PCP - General Internal Medicine 01/17/24
--- OUTSIDE RECORDS SUMMARY | 2024-05-18 09:35 | XMS_ITS | Encounter Summary ---
Author Organization [facility] Address [address] [place] [address] Care Team Providers Care Telecasting Technician Name Role Phone Livan Rosales MD Primary Care Provider Encounter Details Date Type Department Care Team (Late st Contact Info) Description 02/21/2024 Lab Requisition [facility] - Main Lab [address] [facility] [place] [address] Berry Garcia MD [address] [facility] [address] [place], [address] Tachycardia, unspecified Social History Tobacco Use [...] for your loved ones. For example, child and family services specialist or elderly care for an older [...] Orientation Straight 04/20/2024 9: 50 AM EST documented as of this encounter Functional Status * Are you deaf or do you have serious difficulty hearing? Answer Date of Assessment Author No 01/17/2024 8:00 AM EST Azevedo RN * Are you blind or do you have serious difficulty seeing, even when wearing glasses? Answer Date of Assessment Author No 01/17/2024 8:00 AM EST Azevedo RN * Do you have serious difficulty [...] Basic metabolic panel (02/21/2024 5:32 AM EST) Sodium 139 133 - 145 mmol/L LAB CHEMISTRY METHOD 02/21/2024 10:07 AM [facility] Potassium 4.3 3.5 - 5.5 mmol/L LAB CHEMISTRY METHOD 02/21/2024 10:07 AM [facility] Chloride 107 96 - 110 mmol/L LAB CHEMISTRY METHOD 02/21/2024 10:07 AM [facility] CO2 26 21 - 32 mmol/L LAB CHEMISTRY METHOD 02/21/2024 10:07 AM [facility] Anion Gap 6 3 - 11 LAB CHEMISTRY METHOD 02/21/2024 10:07 AM [facility] Glucose 86 70 - 100 mg/dL LAB CHEMISTRY METHOD 02/21/2024 10:07 AM [facility] BUN 8 5 - 25 mg/dL LAB CHEMISTRY METHOD 02/21/2024 10:07 AM [facility] Creatinine 0.79 0.70 - 1.30 mg/dL LAB CHEMISTRY METHOD 02/21/2024 10:07 AM [facility] eGFR 118 >=60 mL/min/1. 73m2 LAB CHEMISTRY METHOD 02/21/2024 10:07 AM [facility] Comment:Calculation based on the??Chronic Kidney Disease Epidemiology Collaboration (CKD-EPI) equation refit??without adjustment for race. BUN/Creatinine Ratio 10.1 LAB CHEMISTRY METHOD 02/21/2024 10:07 AM [facility] Calcium 8.3(L) 8.5 - 10.5 mg/dL LAB CHEMISTRY METHOD 02/21/2024 10:07 AM [facility] Blood Venous blood specimen / Unknown Venipuncture / Unknown 02/21/2024 5:32 AM EST 02/21/2024 9:14 AM EST us Berry Garcia MD LAB BLOOD ORDERABLES Final Resul t [facility] [address] [place] [address], * (ABNORMAL) Complete blood count (02/21/2024 5:32 AM EST) WBC 6.0 4.8 - 10.8 K/mcL LAB HEMETOLOGY METHOD 02/21/2024 9:57 AM [facility] RBC 4.40(L) 4.50 - 5.50 M/mcL LAB HEMETOLOGY METHOD 02/21/2024 9:57 AM [facility] Hemoglobin 11.3(L) 13.5 - 17.5 g/dL LAB HEMETOLOGY METHOD 02/21/2024 9:57 AM [facility] Hematocrit 35.8(L) 42.0 - 54.0 % LAB HEMETOLOGY METHOD 02/21/2024 9:57 AM EST [facility] MCV 82.1 79.0 - 98.0 FL LAB HEMETOLOGY METHOD 02/21/2024 9:57 AM [facility] MCH 25.9(L) 27.0 - 32.0 pcg LAB HEMETOLOGY METHOD 02/21/2024 9:57 AM [facility] MCHC 31.6(L) 32.0 - 37.0 g/dL LAB HEMETOLOGY METHOD 02/21/2024 9:57 AM [facility] RDW 13.9 11.0 - 15.0 % LAB HEMETOLOGY METHOD 02/21/2024 9:57 AM [facility] Platelets 385 130 - 400 K/mcL LAB HEMETOLOGY METHOD 02/21/2024 9:57 AM [facility] MPV 9.3 7.0 - 11.0 FL LAB HEMETOLOGY METHOD 02/21/2024 9:57 AM [facility] NRBC 0.0 <1.0 % LAB HEMETOLOGY METHOD 02/21/2024 9:57 AM [facility] NRBC Absolute 0.00 <0.10 K/mcL LAB HEMETOLOGY METHOD 02/21/2024 9:57 AM [facility] Blood Venous blood specimen / Unknown Venipuncture / Unknown 02/21/2024 5:32 AM EST 02/21/2024 9:14 AM EST us Berry Garcia MD LAB BLOOD ORDERABLES Final Resul t [facility] [address] [place] [address], documented in this encounter Visit Diagnoses Diagnosis Tachycardia, unspecified documented in this encounter Care Teams Telecasting Technician Relationship Specialty Start Date End Date Livan Rosales MD [address] [place] [address] [address] GRISELDA Moore PCP - General Internal Medicine 01/17/24 documented as of this encounter
--- OUTSIDE RECORDS SUMMARY | 2024-05-18 09:35 | XMS_ITS | Clinical Summary ---
Author Organization [facility] Address [address] [place] [address] Phone Care Team Providers Care Talent Acquisition Lead Name Role Phone Livan Rosales Primary Care Provider [phone] [facility] Unavailable [phone] Reason for Visit and Chief Complaint Established Patient Plan of Treatment Future Appointments Date Time Location Provi dylan Post Op Visit/Follow Up 05/30/2024 9:20AM [facility], Leann Esquivel MD Last Documented On 5 10:13AM ; [facility] Established Patient 06/10/2024 9:40AM [facility] Jericho Dominguez MD Last Documented On 5 10:03AM ; [facility], Assessments Includes: Assessments from this encounter No [...] from this encounter No Physical Exam Recorded Insurance Includes: Active Insurance Policies Plan Name Member ID Group # Subscriber Relationship Effect brianda Dates 1 - [facility] [id number] Danielle Villar Self Clinical Notes Includes: Clinical Notes from this encounter No Clinical Notes Recorded
--- OUTSIDE RECORDS SUMMARY | 2024-05-18 09:35 | XMS_ITS | Clinical Summary ---
Author Organization [facility] Address [address] [place] [address] Phone Care Team Providers Care Alternative Education Teacher Name Role Phone Livan Rosales Primary Care Provider [phone] [facility] [phone] Reason for Visit and Chief Complaint Established Patient Plan of Treatment Pending Tests Order Diagnosis Results Due Ordering P marianader Follow Up - Appointment 1 Month Pain in left leg Elie Ruiz MD Last Documented On 5 11:23AM ; [facility] Future Appointments Date Time Location Provi dylan Post Op Visit/Follow Up 05/30/2024 9:20AM [facility] Leann Esquivel MD Last Documented On 5 10:13AM ; [facility] Established Patient 06/10/2024 9:40AM [facility] Jericho Dominguez MD Last Documented On 5 10:03AM ; [facility] Assessments Includes: Assessments from this encounter No [...] Includes: Review of Systems from this encounter Diagnosis: Left patella tendon rupture Primary ORIF/repair on 01/18/2024 Revision repair with application of external fixator 01/31/2024 Noted lateral subluxation of the patella on 04/01/2024. The patient is a 38-year-old gentleman well-known to the orthopedic trauma service. He is grossly noncompliant. He also manipulates his story and tells different providers different stories at different times. We are always cautious to present in the room with a witness present. The patient felt a twist and pop in his leg on last visit and was seen by my colleague Dr. Dominguez. The patient was found to have lateral subluxation of the patella. He was offered flexion of the knee to help realign this patella he was explained the risks and benefits at that time. Per the review of the records the patient declined. He presents today now approximately 1 week later for repeat evaluation. The Ex-Fix is still in place the pin sites are healthy. I cannot feel any disruption of the insertion of the patella tendon no palpable defects at the repair. I did inform the patient of the findings and the gravity of the situation of his leg I did inform him that he will need a brace for this knee long-term that I do not think his patella will track properly and at this point he is not a candidate for an MPFL repair. Potentially long-term however not now. At present we need to ensure that his extensor mechanism holds and that he continues to be able to straight leg raise ultimately. But I do not think his patella will track properly at all. I did discuss this with him. He did express understanding of this. We have called several companies namely [facility] care, and [employer] as well as an orthotic company to obtain a brace for this patient to help with pushes patella over medially. Once this brace can be obtained I will then plan for removal of the external fixator. I discussed this with the patient. f/u in 1month. Hopefully he will be able to have a brace that he can bring with him at that time. If he does not we will assess where we are at that point in the status of the brace. The patient understands and is amenable to this plan.He came today with the card from [facility]. He spoke to an Homero Marshall. . He states that they have told him that the brace will be ready on 06/11/2024 at 3 PM. My suggestion would be that we potentially booking for surgery for the end of that week in elective fashion and that he can bring the brace on the day of the surgery. Mental Status Includes: Mental Status from this encounter No Mental Status Recorded Functional Status Includes: Functional Status from this encounter No Functional Status Recorded Physical Exam Includes: Physical Exam from this encounter No Physical Exam Recorded Encounters Encounter Provider Location Date Check-In Time Check-Out Time Diagnosis Established Patient Elie Ruiz MD [facility] 10:40AM 10:01AM Insurance Includes: Active Insurance Policies Plan Name Member ID Group # Subscriber Relationship Effect brianda Dates 1 - [facility] [id number] Danielle Mccormack Clinical Notes Includes: Clinical Notes from this encounter * Progress note Date Encounter Last Documented by 05/09/2024 Established Patient Last ojumedanish watkins on 05/09/2024; 11:23 AM, Elie Ruiz MD; [facility], Plan StartCited - Pain in left leg Follow Up/Appointment: 1 Month EndCited User Defined 4 Diagnosis: Left patella tendon rupture Primary ORIF/repair on 01/18/2024 Revision repair with application of external fixator 01/31/2024 Noted lateral subluxation of the patella on 04/01/2024. The patient is a 38-year-old gentleman well-known to the orthopedic trauma service. He is grossly noncompliant. He also manipulates his story and tells different providers different stories at different times. We are always cautious to present in the room with a witness present. The patient felt a twist and pop in his leg on last visit and was seen by my colleague Dr. Dominguez. The patient was found to have lateral subluxation of the patella. He was offered flexion of the knee to help realign this patella he was explained the risks and benefits at that time. Per the review of the records the patient declined. He presents today now approximately 1 week later for repeat evaluation. The Ex-Fix is still in place the pin sites are healthy. I cannot feel any disruption of the insertion of the patella tendon no palpable defects at the repair. I did inform the patient of the findings and the gravity of the situation of his leg I did inform him that he will need a brace for this knee long-term that I do not think his patella will track properly and at this point he is not a candidate for an MPFL repair. Potentially long-term however not now. At present we need to ensure that his extensor mechanism holds and that he continues to be able to straight leg raise ultimately. But I do not think his patella will track properly at all. I did discuss this with him. He did express understanding of this. We have called several companies namely [employer] [facility], and [employer] as well as an orthotic company to obtain a brace for this patient to help with pushes patella over medially. Once this brace can be obtained I will then plan for removal of the external fixator. I discussed this with the patient. f/u in 1month. Hopefully he will be able to have a brace that he can bring with him at that time. If he does not we will assess where we are at that point in the status of the brace. The patient understands and is amenable to this plan.He came today with the card from [facility]. He spoke to an Homero Marshall. . He states that they have told him that the brace will be ready on 06/11/2024 at 3 PM. My suggestion would be that we potentially booking for surgery for the end of that week in elective fashion and that he can bring the brace on the day of the surgery.
--- OUTSIDE RECORDS SUMMARY | 2024-05-18 09:35 | XMS_ITS ---
Author Organization [facility] Address [address] [place] [address] Phone Care Team Providers Care Firmware Software Verification Engineer Name Role Phone Livan Rosales Primary Care Provider [phone] [facility] Un[facility] [phone] Plan of Treatment Future Appointments Date Time Location Provi dylan Post Op Visit/Follow Up 05/30/2024 9:20AM [facility] Leann Esquivel MD Last Documented On 5 10:13AM ; [facility] Established Patient 06/10/2024 9:40AM [facility] Jericho Dominguez MD Last Documented On 5 10:03AM ; [facility] Assessments Includes: Assessments for all patient encounters No Assessments Recorded Medical Equipment - Implanted Devices Includes: Current and historical Devices No Medical Equipment Recorded Medications Administered Includes: Administered Medications in patient's chart No Administered Medications Recorded Results Includes: Results from 05/19/2023 through 05/18/2024 No Results Recorded For Specified Dates History of Present Illness History of Present Illness not supported for this document type No History of Present Illness Recorded Social History No Social History Recorded - Smoking Status Unknown Procedures and Surgical History Includes: Procedures from 05/19/2023 through 05/18/2024 Procedures Code Diagnosis Performing Provider Service Location Service Date X-Ray Exam Of Knee, 3 views (Left) 73004 Pain in left leg Jericho Dominguez MD [facility] 04/09/2024 Last Documented On 5 10:31AM ; [facility] X-Ray of tibia and fibia, 2 views (Left) 66537 Pain in left leg Jericho Dominguez MD [facility] 04/09/2024 Last Documented On 5 10:31AM ; [facility], X-Ray of Femur, minimum 2 views (Left) 21530 Pain in left leg Jericho Dmoinguez MD [facility], 04/09/2024 Last Documented On 5 10:31AM ; [facility], Apply Bone Fixation Device (Left, Aerial Hurricane Hunter Surgeon) 52824 Strain of musc/tend at lower leg level, left leg, init Tiburcio Johnson MD [facility] - Inpatient 01/31/2024 Last Documented On 4 3:12PM ; [facility], Repair/Graft 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, Aerial Hurricane Hunter Surgeon) 53893 Strain of musc/tend at lower leg level, left leg, init Tiburcio Johnson MD [facility] - [facility]patient 01/31/2024 Last Documented On 4 3:12PM ; [facility], Apply Bone Fixation Device (Left) 85266 Pain due to internal orthopedic prosth dev/grft, init Leann Esquivel MD [facility] - [facility]patient 01/31/2024 Last Documented On 4 3:12PM ; [facility], Repair/Graft 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) 40970 Strain of musc/tend at lower leg level, left leg, init Leann Esquivel MD [facility] - [facility]patient 01/31/2024 Last Documented On 4 3:12PM ; [facility], Repair Of 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, Aerial Hurricane Hunter Surgeon, survey rodman) 58043 Strain of musc/tend at lower leg level, left leg, init Jolynn SCHWARZ [facility] - [facility]patient 01/18/2024 Last Documented On 5 1:36PM ; [facility], Repair Of 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) 37848 Strain of musc/tend at lower leg level, left leg, init Tiburcio Johnson MD [facility] - [facility]patient 01/18/2024 Last Documented On 4 2:46PM ; [facility], Medical History Includes: Medical History in patient's [...] Physical Exam Recorded Encounters Includes: Encounters from 05/19/2023 through 05/18/2024 Encounter Provider Location Date Check-In Time Check-Out Time Diagnosis Established Patient [facility]40[facility] 10:01AM Post Op Visit/Follow Up [facility] 9:00AM 10:29AM Post Op Visit/Follow Up [facility] 10:20[facility] 11:43AM Post Op Visit/Follow Up [facility] 10:20AM 10:50AM Post Op Visit/Follow Up [facility] 9:00AM 9:35AM Post Op Visit/Follow Up [facility], 9:40AM 9:57AM Insurance Includes: Active Insurance Policies Plan Name Member ID Group # Subscriber Relationship Effect brianda Dates 1 - [facility] [id number] Danielle Villar [place] Clinical Notes Includes: Signed Clinical Notes starting from 01/23/2022 * Progress note Date Encounter Last Documented by 05/09/2024 Established Patient Kwabena watkins on 05/09/2024; 11:23 AM, Elie Ruiz MD; [facility], Plan StartCited - Pain in left leg [...] called several companies namely surgical care, and [employer] as well as an orthotic company to [...] plan.He came today with the card from [facility]. He spoke to an Homero Marshall. . He states that they have told him that the brace will be ready on 06/11/2024 at 3 PM. My suggestion would be that we potentially booking for surgery for the end of that week in elective fashion and that he can bring the brace on the day of the surgery. * Progress note Date Encounter Last Documented by 04/16/2024 Post Op Visit/Follow Up Last doc umented on 04/16/2024; 10:24 AM, Leann Esquivel MD; [facility], Top of Document Diagnosis: Left patella tendon rupture Primary ORIF/repair [...] called several companies namely [employer] care, and [employer] as well as an orthotic company to obtain a brace for this patient to help with pushes patella over medially. Once this brace can be obtained I will then plan for removal of the external fixator. I discussed this with the patient. He is can a follow-up with me on the of this month. Hopefully he will be able to have a brace that he can bring with him at that time. If he does not we will assess where we are at that point in the status of the brace. The patient understands and is amenable to this plan. * Progress note Date Encounter Last Documented by 04/09/2024 Post Op Visit/Follow Up Last doc umented on 04/09/2024; 11:46 AM, Jericho Dominguez MD; [facility], Chief Complaint Dx: Left patella tendon rupture [...] on 04/01/2024; 10:54 AM, Leann Esquivel MD; [facility], Top of Document Dx: Left patella tendon [...] on 03/18/2024; 9:24 AM, Jericho Dominguez MD; [facility], Chief Complaint Dx: Left patella tendon rupture [...] on 02/15/2024; 10:45 AM, Elie Ruiz MD; [facility], Plan StartCited - Unsp fracture of left [...] not to. Seen today with the medical scribe in the room. States the pain is improved. States there is no numbness or tingling. Physical examination [place] in position. Wound healing well. No signs [...]
--- OUTSIDE RECORDS SUMMARY | 2024-05-18 09:35 | XMS_ITS | Data Portability ---
Author Organization [facility], Main Office Address [address] [place] [address] Care Team Providers Care Director Of Content And Programming Name Role Phone [facility] OTHER Assessment No assessment recorded. Plan of [...] Details Recorded Time Left patellar tendon rupture [id number] 9100 Active [address], [place], [address], [facility] 5 05:39:03 Acute pain 569229372 Active [address], [place], [address], [facility] [facility] 5 05:39:18 Fracture of upper end of fibula 42077129 Active [address], [place], [address], [facility] [employer] [facility] 5 05:40:07 Anxiety 48977143 Active [address], [place], [address], [facility] [employer] [facility] 5 05:40:50 Attention deficit hyperactivi ty disorder 094498441 Active [address], [place], [address], [facility] [employer] 5 05:40:57 Tachycardia 7197748 Active [address], [address], [place], [address], [facility] [employer] 5 05:41:05 Asthenia 46047323 Active [address], [address], [place], [address], [facility] [employer] 5 05:42:19 Obstructive sleep apnea syndrome 84208333 Active [address], [address], [place], [address], [facility] [employer] 5 05:42:29 Problem Notes None recorded. Medical Equipment None Reported. Vitals Date Recorded Heart rate Respiratory rate Body temperature Oxygen saturation Oxygen saturation in Arterial blood by Pulse oximetry Systolic blood pressure Diastolic blood pressure Provider Name and Address Organization Details Last Updated DateTime 5 100 /min 18 /min 97.9 [degF] 94 % 94 % 140 mm[Hg] 71 mm[Hg] GENET WHITE NP [address], [address], [place], [address], [facility] [employer] 5 14:20:45 Social History None recorded. Functional Status None recorded. Mental Status None recorded. Family History Nothing Reported. Medical History No medical history recorded. Gynecological HistoryNo gynecological history recorded. Obstetrics History GPAL:G 0 P 0 0 0 0 Past Encounters Encounter ID Performer Location Encounter Start Date Encounter Closed Date Diagnosis/Indication Diagnosis SNOMED-CT Code Diagnosis ICD10 Code Diagnosis Note [id number] [place] [address] 02/20/2024 11:22:09 02/21/2024 12:21:51 Fracture of upper end of fibula 56784365 S89.D Left patellar tendon rupture requiring revision and placement of external fixator by Dr. Esquivel.Nonw eightbeari ng left lower extremityc ontinue to use walker or crutches for ambulation .continue oxycodone 5-10 mg q4h prncontinu e gabapentin 200 mg bidasa 81 mg bid x 3 moscontinu e PT Ara/up with orthopedic surgery as planned Left bowser lar tendon rupture [id number] 8367856 S76.112D see above Acute pain 164095781 R52 see pain med plan abovemonit or painmonito r utilizatio n of narcs and wean as tolerated Asthenia 41670561 R53.1 continue PT OTindepend ent at baseline Tachycardia 5402593 R00. 0 tachycardi c 150s with [id number] -130s at restdrinki ng a monster and on adderall (see HPI)check HR prior to adderall administra tionwill obtain an ECG to make sure hes not in afibmonito r vitals qshift x 3 days Obstructiv e sleep apnea syndrome 77906623 G47.33 not on CPAPshould have outpatient sleep study Attention deficit hyperactivity disorder 332132771 F90.9 continue adderall 35 mg dailymonit or HR prior to giving med Anxiety 91082267 F41.9 continue sertraline 50 mg qhscontinu e ambien 5 mg qhs prn for sleeprefus ed psych eval with [facility] [address] [id number] GENTE WHITE NP [place] [address] [place] [address] 02/26/2024 14:20:03 02/28/2024 08:26:45 Fracture of upper end of fibula 05871997 S89.202D Left patellar tendon rupture requiring revision [...] go home. Left bowser lar tendon rupture [id number] 9869126 S76.112D see above Acute pain 296336460 R52 Pain controlled - continue APAP, gabapentin , and oxycodone. monitor pain, adjust meds as needed.mon itor utilizatio n of narcs and wean as tolerated Asthenia 55414186 R53.1 continue PT OTindepend ent at baseline Tachycardia 5074936 R00. 0 Monitor HR, check prior to adderall use daily.Avoi d caffeine - encouraged pt. to drink decaf coffee and avoid other drinks with high caffeine levels Check with nsg. re: EKG results Obstructiv e sleep apnea syndrome 86590785 G47.33 not on CPAPshould have outpatient sleep study Attention deficit hyperactivity disorder 879264981 F90.9 continue adderall 35 mg dailymonit or HR prior to giving med Anxiety 87740166 F41.9 continue sertraline 50 mg qhscontinu e ambien 5 mg qhs prn for sleeprefus ed psych eval with [employer] [address] [id number] JASPAL BENDER, [employer]ITE [employer]-C [place] [address] [place] [address] 03/05/2024 08:14:56 03/06/2024 15:48:02 Fracture of upper end of fibula 16448192 S89.202D Left patellar tendon rupture requiring revision [...] surgery fe Left bowser lar tendon rupture [id number] 2247037 S76.112D see above Asthenia 35705035 R53.1 returning home tomorrowin dependent at baselineus ing crutches and cane to ambulateho me PT OT set up Tachycardia 7834955 R00. 0 Monitor HR while on adderallAv oid caffeine - encouraged pt. to drink decaf coffee and avoid other drinks with high caffeine levels f/up with pcp Obstructiv e sleep apnea syndrome 00261901 G47.33 not on CPAPshould have outpatient sleep study Attention deficit hyperactivity disorder 352062570 F90.9 continue adderall 35 mg dailymonit or HR prior to taking medf/up with pcp Anxiety 89352049 F41.9 continue sertraline 50 mg qhscontinu e [...] Steve Member ID Guarantor Name 02/20/2024 1 [facility] - DOS ON OR AFTER 2022 - MEDICARE ADVANTAGE [place] RE[place]ACEMENT/ADV ANTAGE - PPO) Danielle Villar [id number] Danielle Villar 02/26/2024 1 [facility] - DOS ON OR AFTER 2022 - [place]/ADV ANTAGE - PPO) Danielle Villar [id number] Danielle Villar 03/05/2024 1 [facility] - DOS ON OR AFTER 2022 - [place]V ANTAGE - PPO) Danielle Villar [id number] Danielle Villar Notes Date Note Type Note Provider Name and Address Organization Details Recorded Time 02/20/2024 text/html Pt is a 38-year- old male being seen today for a transfer of care. Pt has a recent fall with left patellar tendon rupture s/p repair on 01/18/2024. Once stable he was transferred to [place] to complete rehab. He was seen today [...] obesity, OSMAR, anxiety JASPAL BENDER NP-C [address], [address], [place], [address], [facility] 02/21/2024 06:04:41 02/26/2024 text/html Danielle is seen [...] obesity, OSMAR, anxiety GENET WHITE NP [address], [address], [place], [address], [facility] 02/26/2024 14:45:59 03/05/2024 text/html Pt is a 38-year- old male being seen today for a discharge summary visit. Pt has a recent fall with left patellar tendon rupture s/p repair on 01/18/2024. Once stable he was transferred to [place] to complete rehab. Patient is being discharge [...] PMH obesity, OSMAR, anxiety [facility] [address], [address], [place], [address], [facility] [employer] 03/05/2024 09:04:12 OBGyn Episode No OBEpisode recorded.
--- OUTSIDE RECORDS SUMMARY | 2024-05-18 09:35 | XMS_ITS | Clinical Summary ---
Author Organization [facility] Address [address] [place] [address] Phone Care Team Providers Care Astronomy Instructor Name Role Phone Livan Rosales Primary Care Provider [phone] [facility] Un[facility] [phone] Reason for Visit and Chief Complaint Post Op Visit/Follow Up Plan of Treatment Future Appointments Date Time Location Provi dylan Post Op Visit/Follow Up 05/30/2024 9:20AM [facility] Leann Esquivel MD Last Documented On 5 10:13AM ; [facility] Established Patient 06/10/2024 9:40AM [facility] Jericho Dominguez MD Last Documented On 5 10:03AM ; [facility] Assessments Includes: Assessments from [...] Post Op Visit/Follow Up Leann Esquivel MD [facility] 04/17/19 9:00AM 10:29AM Insurance Includes: Active Insurance Policies Plan Name Member ID Group # Subscriber Relationship Effect brianda Dates 1 - [facility] [id number] Danielle Villar Self Clinical Notes Includes: Clinical Notes from this encounter * Progress note Date Encounter Last Documented by 04/16/2024 Post Op Visit/Follow Up Last doc umented on 04/16/2024; 10:24 AM, Leann Esquivel MD; [facility], Top of Document Diagnosis: Left patella tendon [...] called several companies namely [employer] care, and [employer] as well as an orthotic company to obtain a brace for this patient to help with pushes patella over medially. Once this brace can be obtained I will then plan for removal of the external fixator. I discussed this with the patient. He is can a follow-up with me on the 17 of this month. Hopefully he will be able to have a brace that he can bring with him at that time. If he does not we will assess where we are at that point in the status of the brace. The patient understands and is amenable to this plan.
--- OUTSIDE RECORDS SUMMARY | 2024-05-18 09:35 | XMS_ITS | Clinical Summary ---
Author Organization [facility] Address [address] [place] [address] Phone Care Team Providers Care Engineering Model Maker Name Role Phone Livan Rosales Primary Care Provider [phone] [facility] Unavailable [phone] Reason for Visit and Chief Complaint Post Op Visit/Follow Up Plan of Treatment Future Appointments Date Time Location Provi dylan Post Op Visit/Follow Up 05/30/2024 9:20AM [facility], Leann Esquivel MD Last Documented On 5 10:13AM ; [facility], Established Patient 06/10/2024 9:40AM [facility] Jericho Dominguez MD Last Documented On 5 10:03AM ; [facility], Assessments Includes: Assessments from this encounter No [...] Subscriber Relationship Effect brianda Dates 1 - [facility] [id number] Danielle Villar Self Clinical Notes Includes: Clinical Notes from this encounter No Clinical Notes Recorded
--- OUTSIDE RECORDS SUMMARY | 2024-05-18 09:35 | XMS_ITS | Clinical Summary ---
Author Organization [facility] Address [address] [place] [address] Phone Care Team Providers Care Airplane Refueler Name Role Phone Livan Rosales Primary Care Provider [phone] [facility] Unavailable [phone] Reason for Visit and Chief Complaint Established Patient Plan of Treatment Future Appointments Date Time Location Provi dylan Post Op Visit/Follow Up 05/30/2024 9:20AM [facility], Leann Esquivel MD Last Documented On 5 10:13AM ; [facility] Established Patient 06/10/2024 9:40AM [facility] Jericho Dominguez MD Last Documented On 5 10:03AM ; [facility], Assessments Includes: Assessments from this encounter No [...] Effect brianda Dates 1 - [facility] [id number] Danielle Villar Self Clinical Notes Includes: Clinical Notes from this encounter No Clinical Notes Recorded
--- OUTSIDE RECORDS SUMMARY | 2024-05-18 09:35 | XMS_ITS | Encounter Summary ---
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 Role Phone Livan Rosales MD Primary Care Provider + [phone] Reason for Referral * Home Health (Routine) - Pending Review Specialty Diagnoses / Procedures Referred By Javier austin Referred To Contact Home Health Services Diagnoses Patellar tendon avulsion, left, sequela Faviola Carvajal MD [address] [place] [address] Phone: tel: fax: Referral ID Status Reason Start Date Expiration Date Visits Requested Visits Authorized [id number] Pending Review Consult and Treat 05/16/2024 05/16/2025 1 1 Reason for Visit * Reason Comments Leg Pain Left leg pain * Auth/Cert (Routine) Specialty Diagnoses / Procedures Referred By Javier austin Referred To Contact Diagnoses Complication of procedure, initial encounter Mechanical complication external fixation device w/internal component, initial encounter Procedures [facility] IP/OBS CARE INITIAL MODERATE LEVEL PER DAY Richy Johnson MD [address] [place] [id number] Phone: tel: fax: [facility] Main OR [address] [place] [address] Phone: tel: Referral ID Status Reason Start Date Expiration Date Visits Re quested Visits Authorized [id number] 1 1 Encounter Details Date Type Department Care Team (Latest Contact Info) Description 05/14/2024 10:38 AM EDT - 05/16/2024 4:00 PM EDT Hospital Encounter [facility] Medical Surgical Unit [address] [place] [address] Rudy Ruiz MD [address] [place] [address] Richy Johnson MD [address] [place] [address] Faviola Carvajal MD [address] [place] [address] Complication of procedure, initial encounter (Primary Dx); Mechanical complication external fixation device w/internal component, initial encounter; Tendon rupture, traumatic, patella, left, sequela; Patellar tendon avulsion, left, sequela Discharge Disposition: [place] [place] [facility] [place] Social History Tobacco Use Types Packs/Day Years [...] care for your loved ones. For example, children's entertainer or elderly care for an older adult? [...] Mass Index 46.03 05/14/2024 10:58 AM EDT documented in this encounter Functional Status * [...] Walker RN documented in this encounter Discharge Summaries * Faviola Carvajal MD - 05/16/2024 1:33 PM EDT Images from the original note were not included. LEIPSIC DISCHARGE SUMMARY Patient Information Danielle Villar : 1985 [38 y.o.] Admitting Provider Richy Johnson MD Discharge Provider Faviola Carvajal MD, Faviola Carvajal MD Primary Care Physician Livan Rosales MD Admission Date 05/14/2024 Discharge Date 05/16/2024 Summary of Hospital Problems Primary Discharge Diagnosis: Left patellar tendon rupture status post patellar tendon repair with long leg cast placement presenting with rerupture of his patellar tendon Patient seen by Ortho and underwent removal fixation of the device on 05/15/2024. ADHD Discharge Destination: Home Code Status at Discharge: Full Code - Confirmed Inpatient Consultants: Ortho : Dr. Elie Duron Procedures Performed Left lower extremity hardware removal on 05-15-[address] Ruiz Discharge Medications Medication List TAKE these medications acetaminophen 500 mg tablet Commonly known as: TYLENOL Take 2 tablets (1,000 mg total) by mouth every 8 (eight) hours if needed for moderate pain. Do not exceed 3 grams of Tylenol per day. You can take 1-2 tabs every 8 hours * amphetamine-dextroamphetamine 5 mg tablet Commonly known as: ADDERALL Take 1 tablet (5 mg total) by mouth 1 (one) time each day. Total 35 mg daily Max Daily Amount: 5 mg * amphetamine-dextroamphetamine 15 mg tablet Commonly known as: ADDERALL Take 2 tablets (30 mg total) by mouth 1 (one) time each day. Max Daily Amount: 30 mg aspirin 325 mg EC tablet Take 1 tablet (325 mg total) by mouth 1 (one) time each day. furosemide 40 mg tablet Commonly known as: LASIX Take 1 tablet (40 mg total) by mouth 1 (one) time each day. for 30 days gabapentin 100 mg capsule Commonly known as: NEURONTIN Take 1 capsule (100 mg total) by mouth 2 (two) times a day. oxyCODONE 5 mg immediate release tablet Commonly known as: ROXICODONE Take 1-2 tablets (5-10 mg total) by mouth every 6 (six) hours if needed for severe pain. Max Daily Amount: 40 mg Ozempic 1 mg/dose (4 mg/3 mL) injection pen Generic drug: semaglutide Inject 1 mg under the skin every 7 (seven) days. sertraline 25 mg tablet Commonly known as: ZOLOFT Take 1 tablet (25 mg total) by mouth 1 (one) time each day. zolpidem 5 mg tablet Commonly known as: AMBIEN Take 1 tablet (5 mg total) by mouth at bedtime as needed. at bedtime Max Daily Amount: 5 mg * This list has 2 medication(s) that are the same as other medications prescribed for you. Read thedirections carefully, and ask your doctor or other care provider to review them with you. Hospital Course Summary CHIEF COMPLAINT Left lower extremity pain HISTORY OF PRESENT ILLNESS Danielle Villar is a 38 y.o. male past medical history significant for left patellar tendon rupture status post patellar tendon repair with long leg cast placement by Dr. Johnson on 01/17/2025. Patient returned to [facility] ED after having taken down the cast and falling resulting in rerupture patellar tendon, underwent left patellar tendon repair with Ex-Fix placement by Dr. Esquivel on 01/30/2025. Per Ortho surgery plan was to wait 3 months for the tendon to heal before removing the Ex-Fix. Patient discharged home to follow-up with orthopedic surgery team as an outpatient. However patient did not show up to multiple follow-up appointments. Today patient states that he was cleaning around the pin sites when he felt a pop resulting in left lower extremity pain. States he has been using a wheelchairand walker. States his current pain management is not helping. Arrival to ED, blood pressure 137/95, heart rate 109, respirate 18, O2 sat 98% on room air, afebrile. Left knee x-ray showed diffuse soft tissue swelling, no acute fracture identified. Patient was seen by Dr. Johnson who recommend admitting patient to the medical service, n.p.o. after midnight and they will take to the patient or in the morning. Patient received IV Dilaudid and admitted hospital for further workup treatment. Hospital course: 38 y.o. male past medical history significant for left patellar tendon rupture status post patellartendon repair with long leg cast placement by Dr. Johnson on 01/17/2025. Patient returned to [facility] ED after having taken down the cast and falling resulting in rerupture patellar tendon, underwent left patellar tendon repair with Ex-Fix placement by Dr. Esquivel on 01/30/2025. Per Ortho surgery plan was to wait 3 months for the tendon to heal before removing the Ex-Fix. Patient discharged home to follow-up with orthopedic surgery team as an outpatient. However patient did not show up to multiple follow-up appointments. Today patient states that he was cleaning around the pin sites when he felt a pop resulting in left lower extremity pain. Left patellar tendon rupture status post patellar tendon repair with long leg cast placement presenting with rerupture of his patellar tendon Patient seen by Ortho and underwent removal fixation of the device today on 05/15/2024. Per Ortho Nonweightbearing left lower extremity. Keep the brace on at all times. Okay to change dressing intoto 3 days and replace with new clean dressing. Reinforce dressing as necessary. Rest, ice, elevate.Resume regular home diet. Follow-up in 1 to 2 weeks in the office for wound check and possible initiation of some therapy and range of motion in the brace. Counseled the patient aggressively that he needs to be nonweightbearing and avoid trying to bend his knee and to keep the brace on at all times. Noncompliance will likely lead to a catastrophic failure of his surgery. Patient to be on aspirin 325 mg daily for 30 days from surgery. Pain management with Tylenol and as needed oxycodone ADHD on Adderall 35 mg daily. Medication not given today. Insomnia on Ambien as needed Depression on sertraline Patient seen by OT and PT and recommending no services at this time. Patient stable and will be discharged home. Physical Exam at time of Discharge BP (!) 141/80 (BP Location: Right arm, Patient Position: Lying) Pulse 79 Temp 36.4 ??C (97.6 ??F) (Temporal) Resp 18 Ht 1.803 m (71 ) Wt 150 kg (330 lb) BMI 46.03 kg/m?? Physical Exam Gen: Alert oriented ., NAD CV -RRR no MGR Lungs -CTAB Abd - Soft, non-tender, non-distended Extremities -left lower extremity in dressing and brace Neuro Alert Labs/Imaging XR Tibia Fibula 2 Views Left Result Date: 05/14/2024 XR TIBIA FIBULA 2 VIEWS LEFT INDICATION: external fixation TECHNIQUE: XR TIBIA FIBULA 2 VIEWS LEFT COMPARISON: No priors available. FINDINGS/IMPRESSION: External fixation screws of the tibial diaphysis are intact. Osteopenia and degenerative changes. -------- FINAL REPORT -------- Dictated By: Mónica Garg Dictated Date: 05/14/2024 15:45 ET Assigned Physician: Mónica Garg Reviewed and Electronically Signed By: Mónica Garg SignedDate: 05/14/2024 15:46 ET Workstation ID: [id number] Transcribed By: Self Edit Transcribed Date: 05/14/2024 15:45 ET XR Femur 2+ Views Left Result Date: 05/14/2024 XR FEMUR 2+ VIEWS LEFT INDICATION: ? external fixator dislodgement TECHNIQUE: XR FEMUR 2+ VIEWS LEFT COMPARISON: Comparison examination is under a different [id number] FINDINGS/IMPRESSION: There has been interval dislodgment of the femoral external fixation screws inthe femoral diaphysis now terminating in the soft tissues. Osteopenia and degenerative changes. Anatomic alignment. -------- FINAL REPORT -------- Dictated By: Mónica Garg Dictated Date: 05/14/2024 15:42 ET Assigned Physician: Mónica Garg Reviewed and Electronically Signed By: Mónica Garg Signed Date: 05/14/2024 15:45 ET Workstation ID: [id number] Transcribed By: Self Edit Transcribed Date: 05/14/2024 15:42 ET No results found for: INR , PROTIME Lab Results Component Value Date NA 137 05/16/2024 K 3.6 05/16/2024 CL 105 05/16/2024 CO2 27 05/16/2024 GLUCOSE 93 05/16/2024 BUN 11 05/16/2024 CREATININE 0.76 05/16/2024 CALCIUM 8.8 05/16/2024 PROT 6.5 01/28/2024 ALBUMIN 3.0 (L) 01/28/2024 BILITOT 0.4 01/28/2024 AST 26 01/28/2024 ALT 44 01/28/2024 PHOS 4.3 01/28/2024 MG 2.2 01/28/2024 ALKPHOS 72 01/28/2024 EGFR 119 05/16/2024 Lab Results Component Value Date WBC 7.6 05/16/2024 HGB 11.8 (L) 05/16/2024 HCT 37.5 (L) 05/16/2024 MCV 77.6 (L) 05/16/2024 PLT 424 (H) 05/16/2024 No results found for this or any previous visit (from the past week). Imaging: XR Tibia Fibula 2 Views Left Narrative: XR TIBIA FIBULA 2 VIEWS LEFT INDICATION: external fixation TECHNIQUE: XR TIBIA FIBULA 2 VIEWS LEFT COMPARISON: No priors available. Impression: FINDINGS/IMPRESSION: External fixation screws of the tibial diaphysis are intact. Osteopenia and degenerative changes. -------- FINAL REPORT -------- Dictated By: Mónica Garg Dictated Date: 05/14/2024 15:45 ET Assigned Physician: Mónica Garg Reviewed and Electronically Signed By: Mónica Garg Signed Date: 05/14/2024 15:46 ET Workstation ID: [id number] Transcribed By: Self Edit Transcribed Date: 05/14/2024 15:45 ET XR Femur 2+ Views Left Narrative: XR FEMUR 2+ VIEWS LEFT INDICATION: ? external fixator dislodgement TECHNIQUE: XR FEMUR 2+ VIEWS LEFT COMPARISON: Comparison examination is under a different [id number] Impression: FINDINGS/IMPRESSION: There has been interval dislodgment of the femoral external fixation screws in the femoral diaphysis now terminating in the soft tissues. Osteopenia and degenerative changes. Anatomic alignment. -------- FINAL REPORT -------- Dictated By: Mónica Garg Dictated Date: 05/14/2024 15:42 ET Assigned Physician: Mónica Garg Reviewed and Electronically Signed By: Mónica Garg Signed Date: 05/14/2024 15:45 ET Workstation ID: [id number] Transcribed By: Self Edit Transcribed Date: 05/14/2024 15:42 ET Follow-Up Instructions and Recommendations ORTHOPEDIC DISCHARGE INSTRUCTIONS Diagnosis: Left lower extremity ex fix dislodgement Surgery: Left lower extremity hardware removal on 05-15-[address] Ruiz - Follow up with [facility] in 2 weeks. If you do not already have a follow-up appointment listed below in your discharge instructions, please call to schedule one within 1 to 2 days of discharge. If you are unable to keep your appointment, please contact the office. Contact information is listed below. - Follow up: 05-30-24 at 9:20 AM - Nonweightbearing on your left lower extremity with walker/crutch protection or wheelchair use. Keep this extremity elevated (preferably above the level of your heart) while in bed or sitting. - To prevent blood clots, continue aspirin 325 mg daily for a total of 30 days after your surgery. - Keep the knee immobilizer in place at all times. It may be taken off to perform skin checks and evaluate for skin breakdown. It is very important that your knee remain straight at all times until instructed to do otherwise. - Please leave the dressings in place until the follow up appointment. If the dressings fall off orbecome saturated, please replace with similar dressings (Xeroform, gauze, Tegaderm). Keep the dressings clean and dry. - Keep taking your narcotic pain medication as needed for severe pain. You may cut the pills in half. You should continue to take stool softeners while taking narcotics. Do not drink alcohol, drive, or take other narcotics while taking this medication. You may also take Tylenol and ibuprofen for pain as instructed. It can be helpful to take ibuprofen with food to prevent GI upset. Do not take Tylenol or ibuprofen if you have been told not to for medical reasons. - You may apply ice to reduce swelling and improve pain. Do not apply the ice directly to your skinand apply for no more than 20 minutes at a time. - You may resume your regular diet. Drink fluids to keep yourself hydrated. - Do not drive until cleared to do so at your follow up appointment. - Please call [facility] with any questions or concerns. [facility] [address] [place] [address] More than 30 minutes spent on the discharge summary. documented in this encounter Discharge Instructions * Discharge Instructions* CHONG Pina - 05/15/2024 10:10 AM EDT ORTHOPEDIC DISCHARGE INSTRUCTIONS Diagnosis: Left lower extremity ex fix dislodgement Surgery: Left lower extremity hardware removal on 05-15-[address] Ruiz - Follow up with [facility] in 2 weeks. If you do not already have a follow-up appointment listed below in your discharge instructions, please call to schedule one within 1 to 2 days of discharge. If you are unable to keep your appointment, please contact the office. Contact information is listed below. - Follow up: 05-30-24 at 9:20 AM - Nonweightbearing on your left lower extremity with walker/crutch protection or wheelchair use. Keep this extremity elevated (preferably above the level of your heart) while in bed or sitting. - To prevent blood clots, continue aspirin 325 mg daily for a total of 30 days after your surgery. - Keep the knee immobilizer in place at all times. It may be taken off to perform skin checks and evaluate for skin breakdown. It is very important that your knee remain straight at all times until instructed to do otherwise. - Please leave the dressings in place until the follow up appointment. If the dressings fall off orbecome saturated, please replace with similar dressings (Xeroform, gauze, Tegaderm). Keep the dressings clean and dry. - Keep taking your narcotic pain medication as needed for severe pain. You may cut the pills in half. You should continue to take stool softeners while taking narcotics. Do not drink alcohol, drive, or take other narcotics while taking this medication. You may also take Tylenol and ibuprofen for pain as instructed. It can be helpful to take ibuprofen with food to prevent GI upset. Do not take Tylenol or ibuprofen if you have been told not to for medical reasons. - You may apply ice to reduce swelling and improve pain. Do not apply the ice directly to your skinand apply for no more than 20 minutes at a time. - You may resume your regular diet. Drink fluids to keep yourself hydrated. - Do not drive until cleared to do so at your follow up appointment. - Please call [facility] with any questions or concerns. [facility] [address] [place] [address] documented in this encounter Medications at Time of Discharge acetaminophen (TYLENOL) 500 mg tablet Take 2 tablets (1,000 mg total) by mouth every 8 (eight) hours if needed for moderate pain. Do not exceed 3 grams of Tylenol per day. You can take 1-2 tabs every 8 hours 30 tablet 05/15/2024 amphetamine-dextr oamphetamine (ADDERALL) 15 mg tablet Take 2 tablets (30 mg total) by mouth 1 (one) time each day. Max Daily Amount: 30 mg amphetamine-dextr oamphetamine (ADDERALL) 5 mg tablet Take 1 tablet (5 mg total) by mouth 1 (one) time each day. Total 35 mg daily Max Daily Amount: 5 mg aspirin 325 mg EC tablet Take 1 tablet (325 mg total) by mouth 1 (one) time each day. 30 tablet 05/15/2024 furosemide (LASIX) 40 mg tablet Take 1 tablet (40 mg total) by mouth 1 (one) time each day. for 30 days oxyCODONE (ROXICODONE) 5 mg immediate release tabletIndications :Tendon rupture, traumatic, patella, left, sequela Take 1-2 tablets (5-10 mg total) by mouth every 6 (six) hours if needed for severe pain. Max Daily Amount: 40 mg 20 tablet 05/15/2024 Ozempic 1 mg/dose (4 mg/3 mL) injection pen Inject 1 mg under the skin every 7 (seven) days. 04/23/2024 sertraline (ZOLOFT) 25 mg tablet Take 1 tablet (25 mg total) by mouth 1 (one) time each day. zolpidem (AMBIEN) 5 mg tablet Take 1 tablet (5 mg total) by mouth at bedtime as needed. at bedtime Max Daily Amount: 5 mg 05/09/2024 documented as of this encounter Ordered Prescriptions Prescription Sig Dispense Quantity Refills Last Filled Start Date End Date acetaminophen (TYLENOL) 500 mg tablet Take 2 tablets (1,000 mg total) by mouth every 8 (eight) hours if needed for moderate pain. Do not exceed 3 grams of Tylenol per day. You can take 1-2 tabs every 8 hours 30 tablet 05/15/2024 aspirin 325 mg EC tablet Take 1 tablet (325 mg total) by mouth 1 (one) time each day. 30 tablet 05/15/2024 oxyCODONE (ROXICODONE) 5 mg immediate release tabletIndications: Tendon rupture, traumatic, patella, left, sequela Take 1-2 tablets (5-10 mg total) by mouth every 6 (six) hours if needed for severe pain. Max Daily Amount: 40 mg 20 tablet 05/15/2024 documented in this encounter Discharge Disposition Disposition Code Departure Means Destination Comment s Home-Health Care [facility] documented in this encounter Progress Notes * Rachael De RN - 05/16/2024 4:47 PM EDT Patient states understanding to discharge instructions. IV line removed. Meds to bed arranged for patient. Patient to follow up with all out patient providers. Patient states he does not have any questions. Iftikhar driving patient home. * Breana Peg, PT - 05/16/2024 11:15 AM EDT [facility] Physical Therapy Evaluation & Treatment PT Discharge Recommendations: Home independent Staff Recommendations for safe patient handling: supervision with walker NWB left LE Modified Ware Scale Score: AM-PAC 6 Clicks Scoring Form: Unable: 1 A Lot: 2 A Little: 3 None: 4 How much difficulty does the patient currently have? Turning over in bed (including adjustment of bedclothes, sheets, and blankets) [] [] [] [x] Sitting down on and standing up from a chair with arms (wheelchair, bedside commode etc [] [] [] [x] Moving from lying on back to sitting on the side of the bed [] [] [] [x] How much help from another person does the patient currently need? Moving to and from a bed to a chair ( including a wheelchair) [] [] [] [x] To walk in hospital room [] [] [] [x] Climbing 3-5 steps with a railing [x] [] [] [] Score: 23 /24 score indicates the pt is appropriate for discharge home with therapy recommendation above Precautions RUE Weight Bearing Status: Full LUE Weight Bearing Status: Full RLE Weight Bearing Status: Full LLE Weight Bearing Status: Non Weight Orthopedic Precautions: (strict NWB L LE and brace to be on at all times locked in extension.) Orthoses Applied: (hinged metal upright brace locked in extension) Fall prevention education provided including use of call light in hospital, use of appropriate assistive device, safe mobility techniques, and safety measures at home. PT Received On: 05/16/24 PT Start Time: 1115 PT Stop Time: 1145 PT Time Calculation (min): 30 min General Family/Caregiver Present: No Precautions RUE Weight Bearing Status: Full LUE Weight Bearing Status: Full RLE Weight Bearing Status: Full LLE Weight Bearing Status: Non Weight Orthopedic Precautions: (strict NWB L LE and brace to be on at all times locked in extension.) Orthoses Applied: (hinged metal upright brace locked in extension) Cognition Overall Cognitive Status: Within Functional Limits Arousal/Alertness: Appropriate responses to stimuli Orientation Level: Oriented X4 Following Commands: Follows all commands and directions without difficulty Hearing: Intact Vision: Intact Speech: Intact Integumentary: mod edema left LE with surgical dressing on upper thigh and medial roblero with dressing History of Present Illness: Patient is a 38 y.o. male admitted to [facility] on 05/14/2024. Patient Active Problem List Diagnosis Patellar tendon avulsion, left, sequela Complication of procedure, initial encounter Tendon rupture, traumatic, patella, left, sequela Past Medical History: Diagnosis Date Obesity (BMI 30.0-34.9) Patellar tendon rupture 01/17/2024 left Past Surgical History: Procedure Laterality Date PATELLAR TENDON REPAIR Left 01/18/2024 Social History Home Living Environment: Home Living Type of Home: Apartment Lives With: Alone Home Adaptive Equipment: Walker - rolling, Wheelchair-manual, Bedside commode Home Layout: One level Home Access: Elevator Prior Function Level of [place]: Independent with mobility and functional transfers Ambulation Status: Household ambulator (the pt states he alternated between using a walker and the wc at home) Indoor Mobility Assistance: Independent Stairs Assistance : Not Applicable Prior Device Use: Manual wheelchair, Walker Which is your dominant hand?: Right General Assessment 05/16/24 1115 PT Last Visit PT Received On 05/16/24 General Family/Caregiver Present No PT Time Calculation PT Start Time 1115 PT Stop Time 1145 PT Time Calculation (min) 30 min Precautions RUE Weight Bearing Status Full LUE Weight Bearing Status Full RLE Weight Bearing Status Full LLE Weight Bearing Status Non Weight Orthopedic Precautions (strict NWB L LE and brace to be on at all times locked in extension.) Orthoses Applied (hinged metal upright brace locked in extension) Pain Assessment Pain Assessment 0-10 Pain Score 3 (pain 3 at rest and 5 as leg being lowered to the floor) Cognition Overall Cognitive Status WFL Arousal/Alertness Appropriate responses to stimuli Orientation Level Oriented X4 Following Commands Follows all commands and directions without difficulty Home Living Type of Home Apartment Lives With Alone Home Adaptive Equipment Walker - rolling;Wheelchair-manual;Bedside commode Home Layout One level Home Access Elevator Prior Function Level of [place] Independent with mobility and functional transfers Ambulation Status Household ambulator (the pt states he alternated between using a walker and the wc at home) Indoor Mobility Assistance Independent Stairs Assistance Not Applicable Prior Device Use Manual wheelchair;Walker Which is your dominant hand? Right Sensation Light Touch No apparent deficits Proprioception Proprioception No apparent deficits Static Sitting Balance Static Sitting-Level of Assistance Independent Static Sitting-Balance Support Feet supported;No upper extremity supported Dynamic Sitting Balance Dynamic Sitting-Level of Assistance Independent Dynamic Sitting-Balance Forward lean Dynamic Sitting-Balance Support Feet supported;Right upper extremity supported;Left upper extremitysupported Static Standing Balance Static Standing-Level of Assistance Supervision Static Standing-Balance Support Right upper extremity supported;Left upper extremity supported Dynamic Standing Balance Dynamic Standing-Level of Assistance Supervision Dynamic Standing-Balance Ambulation Dynamic Standing-Balance Support Right upper extremity supported;Left upper extremity supported Bed Mobility Sitting to Lying Assistance Independent Lying to Sitting Assistance Independent Transfers Sit to Stand Assistance Supervision Chair/Bed to Chair/Bed Transfer Assistance Supervision Ambulation Walking Assistance Supervision Device Rolling walker Distance Ambulated (ft) 20 (able to amb 20' x 2 with walker) Comments the pt was able to mainatin NWB with all transfers and ambulaiton with a walker Stairs Reason(s) not performed: Not applicable RUE Assessment RUE Assessment Within Functional Limits LUE Assessment LUE Assessment Within Functional Limits RLE Assessment RLE Assessment Within Functional Limits LLE Assessment LLE Assessment Impaired LLE Assessment Comments hip and ankle appear 5/5 knee NT as locked in extension due to preautions PT Assessment PT Assessment Results Decreased strength;Decreased endurance Prognosis Good Evaluation/Treatment Tolerance Patient tolerated treatment well Medical Staff Made Aware Yes Plan Treatment/Interventions LE strengthening/ROM;Endurance training;Patient/family training;Gait training;Balance training PT Plan Skilled PT PT Frequency 2-5 days per week PT Discharge Recommendations Home independent PT - Evaluation Status Complete PT Evaluation Time Entry PT Evaluation (Moderate) Time Entry 30 Treatment performed during evaluation: None performed ADDITIONAL COMMENTS: Chart reviewed. RN clears pt for session. Pt agrees to participate and presented in supine upon PT arrival. All lines in place. G Medical precautions observed appropriately. Initiated education on the importance of PT, bed mobility safety, Transfer Safety, Ambulation Safety , Therapy Plan of Care, Home Safety, Energy Conservations strategies, and importance of OOB activity . Pt verbalized understanding. EXIT STATUS: Session ended with patient supine, tray table and call light within reach, and RN made aware. Physical Therapy Assessment/Plan Danielle Villar is a 38 y.o. male admitted to [facility] on 05/14/2024 for Complication of procedure, initial encounter [T81.9XXA] Mechanical complication external fixation device w/internal component, initial encounter [T84.199A]. Pt presents with decreased activity tolerance. Pt performed bed mobility Independent, HOB elevated, Transfers with Supervision, FWW and ambulates Supervision with FWW 20 ft . Pt will benefit from skilled acute PT during hospital stay to improve the deficits listed above and optimize function. PT recommends Home independent when medically stable for safe discharge and to optimize functional mobility and independence. Goals Encounter Problems Encounter Problems (Active) Template: Physical Therapy Problem: PT Short Term Goals Dates: Start: 05/16/24 Goal: PT STG 1 the pt will ambulate 40' with walker NWB left Mod I Dates: Start: 05/16/24 Expected End: 05/23/24 Goal: PT STG 2 The pt will be I with transfers NWB left Dates: Start: 05/16/24 Expected End: 05/23/24 Encounter Problems (Resolved) There are no resolved problems. Education Documentation Precautions, taught by Breana Ruvalcaba PT at 05/16/2024 1:05 PM. Learner: Patient Readiness: Acceptance Method: Explanation Response: Verbalizes Understanding, Demonstrated Understanding Comment: Pt educated on NWB status and need to keep L knee in brace in extension at all times. He appears to have a good understanding Mobility Training, taught by Breana Ruvalcaba PT at 05/16/2024 1:05 PM. Learner: Patient Readiness: Acceptance Method: Explanation Response: Verbalizes Understanding, Demonstrated Understanding Comment: Pt educated on NWB status and need to keep L knee in brace in extension at all times. He appears to have a good understanding Education Comments No comments found. Breana Ruvalcaba PT * Carina Taylor RN - 05/16/2024 11:12 AM EDT 05/16/24 1111 Initial Transition Plan Initial Transition Plan Home (Declined VNA) Transportation Transportation at discharge (needs assistance w transportation home) What day is the transport expected? 05/16/24 Final Discharge Disposition Home or Self Care * Sabrina Machado, OT - 05/16/2024 10:45 AM EDT [facility] Occupational Therapy Evaluation DATE: May TIME IN: 1045 TIME OUT: 1120 Pt: Danielle Villar ROOM: [address] [place] [address] Discharge Recommendation: Home Independent without services Equipment Recommendation: walker Staff recommendations for safe patient handling: Supervision Assessment: Patient is a 38 y.o. y.o. male presenting for OT evaluation following admission due to removal of external fixator to L LE. Pt currently requires no assistance for ADLs and no assistance for functional transfers/mobility. Pt will continue to benefit from skilled acute care OT services this admission to facilitate improvements in the areas of deficit listed above and to progress towardtheir PLOF with ADLs and IADLs. OT Time Calculation OT Start Time: 1045 OT Stop Time: 1120 OT Time Calculation (min): 35 min History of Present Illness: Patient is a 38 y.o. male admitted to [facility] on 05/14/2024. Occupational Therapy evaluation and treatment ordered to assess ADL independence, safety, and functional mobility for discharge planning. Patient Active Problem List Diagnosis Patellar tendon avulsion, left, sequela Complication of procedure, initial encounter Tendon rupture, traumatic, patella, left, sequela Past Medical History: Diagnosis Date Obesity (BMI 30.0-34.9) Patellar tendon rupture 01/17/2024 left Past Surgical History: Procedure Laterality Date PATELLAR TENDON REPAIR Left 01/18/2024 Subjective Patient agreeable to engage in OT evaluation and treatment. Objective Patient was identified by name and x2. Hearing: Intact Speech: Intact Vision: Vision: Intact 05/16/241044 OT Last Visit OT Received On 05/16/24 General Family/Caregiver Present No OT Time Calculation OT Start Time 1045 OT Stop Time 1120 OT Time Calculation (min) 35 min Precautions Medical Precautions Fall Risk Safety Interventions Call cuello within reach;ID band on;Bed alarm RUE Weight Bearing Status Full LUE Weight Bearing Status Full RLE Weight Bearing Status Full LLE Weight Bearing Status Non Weight Orthoses Applied (locked hinge brace) Pain Assessment Pain Assessment 0-10 Pain Score 7 Pain Type Surgical pain Pain Location Leg Pain Orientation Left Home Living Type of Home Apartment Lives With Alone Home Adaptive Equipment Walker - rolling;Wheelchair-manual;Crutches Home Layout One level (with elevator) Bathroom Shower/Tub Tub/shower unit Bathroom Toilet Standard Bathroom Equipment None Prior Function Level of [place] Independent with mobility and functional transfers Ambulation Status Household ambulator Indoor Mobility Assistance Independent Stairs Assistance Independent Prior Device Use Manual wheelchair;Walker Which is your dominant hand? Right ADL/IADL History ADL Assistance (Self Care) Independent Homemaking Assistance (Functional Cognition) Independent ADL Eating Assistance Independent Grooming Assistance Independent Oral Hygiene Assistance Independent Bathing Assistance Independent UE Dressing Assistance Independent LE Dressing Assistance Independent Toileting Assistance Independent Bed Mobility Sitting to Lying Assistance Minimum assistance (assistnace with L LE) Lying to Sitting Assistance Minimum assistance (assistance with lifting L LE) Functional Transfers Sit to Stand Assistance Supervision (with RW) Functional Mobility Walking Assistance Supervision Device Rolling walker Distance Ambulated (ft) 12 (pt able to maintain L LE NWB precautions t/o) Cognition Overall Cognitive Status WFL Perception Inattention/Neglect Appears intact Proprioception Proprioception No apparent deficits Sensation Light Touch No apparent deficits Hand Function Gross Grasp Functional Coordination Coordination Functional RUE Assessment RUE Assessment Within Functional Limits LUE Assessment LUE Assessment Within Functional Limits RLE Assessment RLE Assessment Within Functional Limits LLE Assessment LLE Assessment Impaired OT Assessment OT Assessment Results At baseline Prognosis Good Evaluation/Treatment Tolerance Patient tolerated treatment well Plan Treatment Interventions ADL retraining OT Plan Skilled OT OT Frequency 2-5 days per week OT Duration of Sessions 30-60 min per session OT Treatments per day 1 time per day OT - Evaluation Status Complete OT Discharge Recommendations Home independent Equipment Recommended Walker-rolling OT Evaluation Time Entry OT Evaluation (Low) Time Entry 35 AM-PAC 6 Clicks Occupational Therapy Scoring Form: Unable: 1 A Lot: 2 A Little: 3 None: 4 How much help from another person does the patient currently need? Putting on and taking off regular lower body clothing [] [] [] [x] Bathing (including washing, rinsing and drying) [] [] [] [x] Toileting, which includes using toilet, bed nunez, or urinal [] [] [] [x] Putting on and taking off regular upper body clothing [] [] [] [x] Personal grooming such as brushing teeth [] [] [] [x] Eating meals [] [] [] [x] Score: 24 /24 Score indicates pt is safe/appropriate to discharge home with therapy recommendation listed above. *Score of 18 and below indicates rehab is needed* *Score of over 18 indicates pt is safe to discharge home* ADDITIONAL COMMENTS: Chart reviewed. RN clears pt for session. Pt agrees to participate and received supine with HOB elevated. All lines in place. No family or guests present during session. Medical precautions observed appropriately. Initiated education on Role of OT, WB Status, and ADL Techniques and Safety . Pt verbalized understanding. EXIT STATUS: Session ended with patient supine with HOB elevated. Needs in reach. RN made aware. OT Goals Pt seen for OT eval and treatment session to assess ADL and functional status. See above for details of evaluation/treatment session. OT Assessment OT Assessment Results: At baseline Prognosis: Good Evaluation/Treatment Tolerance: Patient tolerated treatment well Plan Treatment Interventions: ADL retraining OT Plan: Skilled OT OT Frequency : 2-5 days per week OT Duration of Sessions: 30-60 min per session OT Treatments per day: 1 time per day OT - Evaluation Status: Complete OT Discharge Recommendations: Home independent Equipment Recommended: Walker-rolling Encounter Problems Encounter Problems (Active) Template: Occupational Therapy Problem: OT Short Term Goals Dates: Start: 05/16/24 Goal: pt will complete toilet txfer with RW while maintaining L LE non weight bearing precautions IND Dates: Start: 05/16/24 Expected End: 05/23/24 Goal: pt will complete bed mobility IND Dates: Start: 05/16/24 Expected End: 05/23/24 Encounter Problems (Resolved) There are no resolved problems. Education Documentation Body Mechanics, taught by Sabrina Machado OT at 05/16/2024 1:23 PM. Learner: Patient Readiness: Eager Method: Explanation Response: Verbalizes Understanding Precautions, taught by Sabrina Machado OT at 05/16/2024 1:23 PM. Learner: Patient Readiness: Eager Method: Explanation Response: Verbalizes Understanding ADL Training, taught by Sabrina Machado OT at 05/16/2024 1:23 PM. Learner: Patient Readiness: Eager Method: Explanation Response: Verbalizes Understanding Education Comments No comments found. Sabrina Machado OT * Sayra Donovan RN - 05/16/2024 10:37 AM EDT Problem: Sensory: Acute Pain Goal: Ability to develop a pain control plan will improve Outcome: Progressing Goals: Identify possible barriers to meeting goals/advancing plan of care: pain control, NWB, cleared by ortho Stability of the patient: Moderately Stable - Low risk of patient condition declining or worsening End of Shift Summary: Patient drowsy, but easily arousable. Cooperative with plan of care and medications. Verbalizes some pain, scheduled EST and oxycodone prn. Offers no other complaints. Dressingsto LLE intact - some staining - ortho PA aware. Possible discharge today. Care ongoing at this time. * CHONG Pina - 05/16/2024 8:12 AM EDT Orthopedic Trauma Progress Note CHIEF COMPLAINT Postop follow up SURGERY Left lower extremity hardware removal on 05-15-[address] Ruiz ASSESSMENT/PLAN Patient is postop day 1 status post left lower extremity hardware removal by Dr. Ruiz. Patient is stable. - Weightbearing: Continue nonweightbearing on affected extremity with walker/crutch/wheelchair protection - Activity: Encourage out of bed with fall risk protocol; continue foot and ankle pumps while resting; elevate affected extremity above level of heart while resting; maintain left knee in full extension at all times - Therapy: Continue PT/OT - Pain control: Continue current regimen; apply ice to affected area as needed - Dressing/wound care/DME: Dressing should remain clean and dry; dressings may be changed by nursing with similar dressing (Xeroform, gauze, Tegaderm) if they become saturated or fall off; keep left knee brace on at all times locked in full extension except it may be removed once daily for skin checks - Misc: Continue IS; appreciate medical team management of comorbidities - DVT prophylaxis: Pneumatic compression stockings; PO ASA 325 mg daily for 30 days from surgery - Dispo: Anticipate discharge to home when medically appropriate; patient appropriate for dischargeto next level of care from orthopedic standpoint when medically cleared, discharge instructions included in the discharge tab SUBJECTIVE Overnight: No overnight events reported. Patient states he is generally doing well. States that the pain is well- controlled. Patient denies numbness and paresthesias. OBJECTIVE Vitals: 05/16/24 0350 BP: (!) 141/80 Pulse: 84 Resp: 17 Temp: 36.2 ??C (97.2 ??F) SpO2: 97% General: Alert and cooperative, lying comfortably in bed, in no acute distress HEENT: Normocephalic and atraumatic Pulmonary: No increased work of breathing appreciated and able to speak in full sentences Musculoskeletal: Left lower extremity- hinged knee brace in place, dressings with some sanguinous strikethrough, no erythema/drainage appreciated, fires EHL/FHL, dorsiflexion/plantarflexion intact, sensation intact distally, appears well-perfused Skin: Generally normal tone, dry, warm Lab Results Component Value Date WBC 7.6 05/16/2024 HGB 11.8 (L) 05/16/2024 HCT 37.5 (L) 05/16/2024 PLT 424 (H) 05/16/2024 Lab Results Component Value Date NA 137 05/15/2024 K 3.5 05/15/2024 CL 104 05/15/2024 BUN 7 05/15/2024 CREATININE 0.69 (L) 05/15/2024 GLUCOSE 88 05/15/2024 CALCIUM 8.6 05/15/2024 No results found for: SEDRATE , CRP , URICACID Lab Results Component Value Date HGBA1C 6.9 (H) 01/28/2024 No results found for: PT , APTT Above discussed with and agreed to by Dr. Dominguez . Patient encounter performed with LAYLA Colbert at bedside. LOULOU BlnacasC * Carina Taylor RN - 05/15/2024 4:37 PM EDT 05/15/24 1634 Initial Transition Plan Initial Transition Plan Home (Declines VNA) Discharge Planning Living Arrangements Alone Type of Residence Private residence Assistive Devices Eyeglasses;Cane Support Systems Extended family;Friends Medication Coverage Has Med Coverage Under Insurance Plan Yes Medication Affordability No concerns related to payment for meds Transportation Transportation at discharge Other (comment) (will need a ride home) ICC met w Pt at bedside, confirmed demographics. ISAI: 05/18 Barriers: s/p fall, s/p Tendon rupture, traumatic, patella, left, sequela 01/18/2024 w/ Ex-fix repair 01/30. pain management, wound care, OR 05/15, PT eval Dispo: w/c, walker, med rides for transportation needs. neglected OPT surgical F/U r/t patient did not show up to multiple follow-up appointments. * Faviola Carvajal MD - 05/15/2024 3:50 PM EDT Images from the original note were not included. CAREY PROGRESS NOTE Date: 05/15/2024 Author: Faviola Carvajal MD Patient ID: Danielle Villar is a 38 y.o. male : 1985 MR#: [id number] 05/14/2024 SUBJECTIVE Patient seen and examined after procedure today. Postprocedure still very drowsy. Scheduled Medications PRN Medications IV Medications acetaminophen, 1,000 mg, q8h EDER amphetamine-dextroamphetamine, 30 mg, Daily amphetamine-dextroamphetamine, 5 mg, Daily [START ON 05/16/2024] aspirin, 325 mg, Daily ceFAZolin, 3 g, q6h furosemide, 40 mg, Daily sertraline, 25 mg, Daily acetaminophen, 1,000 mg, Once PRN diphenhydrAMINE, 12.5 mg, Once PRN haloperidol, 1 mg, Once PRN HYDROmorphone, 1 mg, q3h PRN naloxone, 0.04 mg, PRN ondansetron (ZOFRAN-ODT) disintegrating tablet, 4 mg, q8h PRN Or ondansetron, 4 mg, q8h PRN ondansetron (PF), 4 mg, Once PRN oxyCODONE, 10 mg, q6h PRN oxyCODONE, 5 mg, Once PRN zolpidem, 5 mg, Nightly PRN OBJECTIVE Vitals: 05/15/24 1152 05/15/24 1213 05/15/24 1245 05/15/24 1500 BP: 131/83 114/85 (!) 128/99 (!) 126/92 BP Location: Right arm;Upper Right arm;Upper Right arm;Upper Right arm;Upper Patient Position: Lying Lying Lying Pulse: 89 80 81 81 Resp: 16 16 16 16 Temp: TempSrc: SpO2: 98% 96% 99% 99% Weight: Height: Intake/Output Summary (Last 24 hours) at 05/15/2024 1550 Last data filed at 05/15/2024 0933 Gross per 24 hour Intake 330 ml Output 800 ml Net -470 ml Wt Readings from Last 1 Encounters: 05/14/24 1058 150 kg (330 lb) PHYSICAL EXAM: Gen: Drowsy at this time., NAD CV -RRR no MGR Lungs -CTAB Abd - Soft, non-tender, non-distended Extremities -left lower extremity in dressing and brace neuro -drowsy RESULTS: CBC BMP Results from last 7 days Lab Units 05/15/24 0423 WBC AUTO K/mcL 4.4* HEMOGLOBIN g/dL 12.3* HEMATOCRIT % 39.0* PLATELETS K/mcL 429* Results from last 7 days Lab Units 05/15/24 0423 SODIUM mmol/L 137 POTASSIUM mmol/L 3.5 CHLORIDE mmol/L 104 CO2 mmol/L 29 ANION GAP 4 BUN mg/dL 7 CREATININE mg/dL 0.69* CALCIUM mg/dL 8.6 Results from last 7 days Lab Units 05/15/24 0423 GLUCOSE mg/dL 88 No lab exists for component: TBIL , BILID No results found for this or any previous visit (from the past week). Imaging: XR Tibia Fibula 2 Views Left Narrative: XR TIBIA FIBULA 2 VIEWS LEFT INDICATION: external fixation TECHNIQUE: XR TIBIA FIBULA 2 VIEWS LEFT COMPARISON: No priors available. Impression: FINDINGS/IMPRESSION: External fixation screws of the tibial diaphysis are intact. Osteopenia and degenerative changes. -------- FINAL REPORT -------- Dictated By: Mónica Garg Dictated Date: 05/14/2024 15:45 ET Assigned Physician: Mónica Garg Reviewed and Electronically Signed By: Mónica Garg Signed Date: 05/14/2024 15:46 ET Workstation ID: [id number] Transcribed By: Self Edit Transcribed Date: 05/14/2024 15:45 ET XR Femur 2+ Views Left Narrative: XR FEMUR 2+ VIEWS LEFT INDICATION: ? external fixator dislodgement TECHNIQUE: XR FEMUR 2+ VIEWS LEFT COMPARISON: Comparison examination is under a different [id number] Impression: FINDINGS/IMPRESSION: There has been interval dislodgment of the femoral external fixation screws in the femoral diaphysis now terminating in the soft tissues. Osteopenia and degenerative changes. Anatomic alignment. -------- FINAL REPORT -------- Dictated By: Mónica Garg Dictated Date: 05/14/2024 15:42 ET Assigned Physician: Mónica Garg Reviewed and Electronically Signed By: Mónica Garg Signed Date: 05/14/2024 15:45 ET Workstation ID: [id number] Transcribed By: Self Edit Transcribed Date: 05/14/2024 15:42 ET ASSESSMENT & PLAN 38 y.o. male past medical history significant for left patellar tendon rupture status post patellartendon repair with long leg cast placement by Dr. Johnson on 01/17/2025. Patient returned to [facility] after having taken down the cast and falling resulting in rerupture patellar tendon, underwent left patellar tendon repair with Ex-Fix placement by Dr. Esquivel on 01/30/2025. Per Ortho surgery plan was to wait 3 months for the tendon to heal before removing the Ex-Fix. Patient discharged home to follow-up with orthopedic surgery team as an outpatient. However patient did not show up to multiple follow-up appointments. Today patient states that he was cleaning around the pin sites when he felt a pop resulting in left lower extremity pain. Left patellar tendon rupture status post patellar tendon repair with long leg cast placement presenting with rerupture of his patellar tendon Patient seen by Ortho and underwent removal fixation of the device today on 05/15/2024. Per Ortho Nonweightbearing left lower extremity. Keep the brace on at all times. Okay to change dressing intoto 3 days and replace with new clean dressing. Reinforce dressing as necessary. Rest, ice, elevate.Resume regular home diet. Follow-up in 1 to 2 weeks in the office for wound check and possible initiation of some therapy and range of motion in the brace. Counseled the patient aggressively that he needs to be nonweightbearing and avoid trying to bend his knee and to keep the brace on at all times. Noncompliance will likely lead to a catastrophic failure of his surgery. Pain management with Tylenol and as needed oxycodone ADHD on Adderall 35 mg daily. Medication not given today. Insomnia on Ambien as needed Depression on sertraline DVT Prophylaxis SCDs Full Code - Confirmed Disposition patient to be seen by PT, if pain controlled likely to be discharged tomorrow morning. * Breana Ruvalcaba PT - 05/15/2024 3:06 PM EDT Therapy session was attempted for Danielle Villar by Breana Ruvalcaba PT on 05/15/2024. The patient wasunable to be seen for the following reason(s): Other: attempted to see pt, pt just up from PACU and still very drowsy. Nursing requesting to hold eval at this time Plan for return visit: As soon as possible * Sabrina Machado OT - 05/15/2024 1:54 PM EDT Therapy session was attempted for Danielle Villar by Sabrina Machado OT on 05/15/2024. The patient was unable to be seen for the following reason(s): Other: Nurse recommended for OT to let pt rest at this time Plan for return visit: Tomorrow * Linda Harvey RN - 05/14/2024 4:52 PM EDT ED RN HANDOFF (All [place] Below Must Be Completed) Reason/Diagnosis for Admission: mechanical complication of external fixation Type of Admission: [x] Medsurg, [] Telemetry Already in a Hospital Bed: [] Yes / [] No Room Considerations/Precautions (ex: fever, diarrhea, or any infectious concerns): [] Yes / [x] No Transfer Man: [] Yes / [] No If YES, Cardiac Rhythm: [] NSR, [] SB, [] ST, [] A-FIB, [] A-Flutter, [] Pacemaker, [] 1st Degree HB, [] 2nd Degree HB, [] 3rd Degree HB Reason for Transfer Man: VS: Visit Vitals BP (!) 148/87 Pulse (!) 115 Temp 37.1 ??C (98.8 ??F) Resp 18 Ht 1.803 m (71 ) Wt 150 kg (330 lb) SpO2 97% BMI 46.03 kg/m?? Smoking Status Former BSA 2.61 m?? Current Mental Status: A/O x [x]4, []3, []2, []1 Current Ambulation Status: denies weightbearing, can stand-pivot IV Access: [x] Yes / [] No Field IV present: [] Yes / [] No Hx of Violence: [] Yes / [] No / [] Unknown Fall Risk:[] Yes / [] No Yellow Bracelet Applied [] Yes / [] No Yellow Socks Applied [] Yes / [] No Patient Belongings inventoried and BL completed: [x] Yes / [] No Patient belongings stored in the security closet: [] Yes (If Yes please supply Security bag #): [] No Patient Medications stored in Pharmacy: [] Yes (If Yes please supply Medication Security bag #): [] No ED Summary of Care: Had surgery in [facility] for his ligaments, Pt states he was trying to put on his pants today and felt the bar extend and felt pain. Also reports some bloody discharge. Pt did follow upwith orthopedics a couple weeks ago and was told he would continue to have the external fixation for a few more weeks. Submitted by and Phone Extension: [phone] * Patito Mcguire RN - 05/14/2024 10:52 AM EDT Patient had surgery in [facility] for prevent ligaments being torn again. Has left leg tico- can stand and pivot but mostly wc bound. Today attempting to put pants on and felt the bar extend inside and a pain shot up his leg. * CHONG Kaiser - 05/14/2024 10:38 AM EDT Images from the original note were not included. Emergency Medicine Note Patient Name: Danielle Villar Initial Evaluation: 05/14/2024 : 1985 Patient's PCP: Livan Rosales MD Emergency Physician: CHONG Kaiser History of Present Illness Chief Complaint: Chief Complaint Patient presents with Leg Pain Left leg pain HPI: This is a 38-year-old male with a past medical history of left patellar tendon rupture with rerupture, left proximal fibular head fracture with external fixation who presents today with left leg pain. Patient reports that approximately 830 this morning he was cleaning around his external fixator inhis left leg when the top pin shot out . Reports significant pain since that time, slight bloody discharge. He reports he last saw orthopedics 2 weeks ago at which time they report he will continue to have this external fixator for a few more weeks. Pain is worsened with any movement of the leg. He denies any weightbearing on this leg at home. Per chart review patient was admitted 01/26 to 02/05 for left patellar tendon rupture requiring revision and placement of external fixator by Dr. Bruce, after initial rupture on 01/17. Since that timehe has presented to the emergency department on 3 instances for pain to the left leg. Most recentlypatient was seen on 05/04, at that time he underwent an XR of left knee as well as left foot and ankle with a possible nondisplaced fracture of the cuboid noted, he declined ultrasound at that time. He was discharged with a 3-day course of oxycodone 10 mg which was filled on 05/08. ROS: I have performed a ROS with the pertinent positives and negatives documented in the history ofpresent illness. Previous History Past Medical History: Diagnosis Date Obesity (BMI 30.0-34.9) Patellar tendon rupture 01/17/2024 left Past Surgical History: Procedure Laterality Date PATELLAR TENDON REPAIR Left 01/18/2024 Social History Tobacco Use Smoking status: Former Types: Cigarettes Smokeless tobacco: Never No family history on file. is allergic to cat dander and pineapple. No current facility-administered medications on file prior to encounter. Current Outpatient Medications on File Prior to Encounter Medication Sig Dispense Refill amphetamine-dextroamphetamine (ADDERALL) 15 mg tablet Take 2 tablets (30 mg total) by mouth 1 (one)time each day. Max Daily Amount: 30 mg amphetamine-dextroamphetamine (ADDERALL) 5 mg tablet Take 1 tablet (5 mg total) by mouth 1 (one) time each day. Total 35 mg daily Max Daily Amount: 5 mg furosemide (LASIX) 40 mg tablet Take 1 tablet (40 mg total) by mouth 1 (one) time each day. for 30 days gabapentin (NEURONTIN) 100 mg capsule Take 1 capsule (100 mg total) by mouth 2 (two) times a day. [] oxyCODONE (ROXICODONE) 10 mg immediate release tablet Take 1 tablet (10 mg total) by mouth every 6 (six) hours if needed for severe pain for up to 3 days. Max Daily Amount: 40 mg 10 tablet 0 sertraline (ZOLOFT) 50 mg tablet Take 1 tablet (50 mg total) by mouth at bedtime. Physical Exam ED Triage Vitals [05/14/24 1058] Temp Heart Rate Resp BP 36.4 ??C (97.5 ??F) 109 18 (!) 137/95 SpO2 Temp Source Heart Rate Source Patient Position 98 % Oral Monitor Sitting BP Location FiO2 (%) Left arm -- Constitutional: Patient alert and oriented, in no acute distress, non-toxic appearing Respiratory: No increased work of breathing or accessory muscle use. Musculoskeletal: There is edema to the left lower extremity no erythema warmth noted. External fixator in place. The most superior pain in the femur is at a 5, slight bloody discharge surrounding. Leg is diffusely tender. +dopplerable pedal pulses bilaterally Neurological: Alert and oriented x3, acting appropriately Psych: Normal mood and affect Results Vitals: 05/14/24 1058 05/14/24 1444 BP: (!) 137/95 (!) 148/87 BP Location: Left arm Patient Position: Sitting Pulse: 109 (!) 115 Resp: 18 18 Temp: 36.4 ??C (97.5 ??F) 37.1 ??C (98.8 ??F) TempSrc: Oral SpO2: 98% 97% Weight: 150 kg (330 lb) Height: 1.803 m (71 ) Labs Reviewed - No data to display Abnormal Labs Reviewed - No data to display XR Tibia Fibula 2 Views Left Final Result FINDINGS/IMPRESSION: External fixation screws of the tibial diaphysis are intact. Osteopenia and degenerative changes. -------- FINAL REPORT -------- Dictated By: Mónica Garg Dictated Date: 05/14/2024 15:45 ET Assigned Physician: Mónica Garg Reviewed and Electronically Signed By: Mónica Garg Signed Date: 05/14/2024 15:46 ET Workstation ID: [id number] Transcribed By: Self Edit Transcribed Date: 05/14/2024 15:45 ET XR Femur 2+ Views Left Final Result FINDINGS/IMPRESSION: There has been interval dislodgment of the femoral external fixation screws inthe femoral diaphysis now terminating in the soft tissues. Osteopenia and degenerative changes. Anatomic alignment. -------- FINAL REPORT -------- Dictated By: Mónica Garg Dictated Date: 05/14/2024 15:42 ET Assigned Physician: Mónica Garg Reviewed and Electronically Signed By: Mónica Garg Signed Date: 05/14/2024 15:45 ET Workstation ID: [id number] Transcribed By: Self Edit Transcribed Date: 05/14/2024 15:42 ET Critical Care Time None ? Differential Diagnosis Acute on chronic pain, post operative pain, dislodgment this fixator, femur fracture Medical Decision Making 38-year-old male presenting with concern for dislodgment of external fixator. On exam patient is alert and oriented no acute distress hemodynamically stable and afebrile.There is edema to the left lower extremity no erythema warmth noted. External fixator in place. The most superior pain in the femur is at a 5 was 6 light bloody discharge surrounding. Leg is diffusely tender. +dopplerable pedal pulses bilaterally. Xr pending Medications naloxone (NARCAN) injection 0.04 mg (has no administration in time range) ondansetron ODT (ZOFRAN-ODT) disintegrating tablet 4 mg (has no administration in time range) Or ondansetron (PF) (ZOFRAN) injection 4 mg (has no administration in time range) HYDROmorphone (PF) (DILAUDID) injection 1 mg (1 mg intravenous Given 05/14/24 1250) HYDROmorphone (PF) (DILAUDID) injection 1 mg (1 mg intravenous Given 05/14/24 1502) ED Course as of 05/14/241651 Tue May 14, 2024 [address] Johnson from orthopedics who recommends admission to medical service, n.p.o. after midnight with plan for operating room tomorrow to remove external fixation device from femur. [BT] ED Course User Index [BT] CHONG Kaiser Clinical Impressions as of 05/14/241651 Complication of procedure, initial encounter Mechanical complication external fixation device w/internal component, initial encounter Procedures Procedures Diagnosis 1. Complication of procedure, initial encounter 2. Mechanical complication external fixation device w/internal component, initial encounter Disposition Admit to Inpatient ED Prescriptions None Physician Attestation This is a split/shared visit with Rudy Ruiz MD. I personally performed the medical decision making (MDM) for the care of this patient on 05/14/24 as documented below 38-year-old male with history of left patellar tendon rupture and rerupture requiring external fixation comes to the ED after feeling like the external fixation device has moved. X-ray confirms the external fixation device is no longer in place. Orthopedics consulted. Patient admitted to the medical service for surgical intervention by orthopedics. CHONG Kaiser 05/14/24 4:52 PM EDT CHONG Kaiser PA 05/14/24 1207 CHONG Kaiser 05/14/24 1227 Rudy Ruiz MD 05/14/24 1510 CHONG Kaiser 05/14/24 1652 CHONG Kaiser 05/14/24 2216 Cosigned by Rudy Ruiz MD at 05/16/2024 11:47 AM EDT documented in this encounter H&P Notes * CHONG Sutherland - 05/14/2024 3:37 PM EDT Images from the original note were not included. CAREY HISTORY AND PHYSICAL Please contact author [CHONG Sutherland] via [employer]. Patient: Danielle Villar Admission Date/Time: 05/14/2024 10:38 AM : 1985 [38 y.o.] Patient's PCP: Livan Rosales MD Attending Provider: Rudy Ruiz MD;* CHIEF COMPLAINT Left lower extremity pain HISTORY OF PRESENT ILLNESS Danielle Villar is a 38 y.o. male past medical history significant for left patellar tendon rupture status post patellar tendon repair with long leg cast placement by Dr. Johnson on 01/17/2025. Patient returned to [facility] ED after having taken down the cast and falling resulting in rerupture patellar tendon, underwent left patellar tendon repair with Ex-Fix placement by Dr. Esquivel on 01/30/2025. Per Ortho surgery plan was to wait 3 months for the tendon to heal before removing the Ex-Fix. Patient discharged home to follow-up with orthopedic surgery team as an outpatient. However patient did not show up to multiple follow-up appointments. Today patient states that he was cleaning around the pin sites when he felt a pop resulting in left lower extremity pain. States he has been using a wheelchairand walker. States his current pain management is not helping. Arrival to ED, blood pressure 137/95, heart rate 109, respirate 18, O2 sat 98% on room air, afebrile. Left knee x-ray showed diffuse soft tissue swelling, no acute fracture identified. Patient was seen by Dr. Johnson who recommend admitting patient to the medical service, n.p.o. after midnight and they will take to the patient or in the morning. Patient received IV Dilaudid and admitted hospital for further workup treatment. Review of Systems All points in 12 point review of systems are negative or as per above MEDICAL HISTORY Past Medical History Past Medical History: Diagnosis Date ??? Obesity (BMI 30.0-34.9) ??? Patellar tendon rupture 01/17/2024 left Past Surgical History Past Surgical History: Procedure Laterality Date ??? PATELLAR TENDON REPAIR Left 01/18/2024 Social History reports that he has quit smoking. His smoking use included cigarettes. He has never used smokeless tobacco. Family History family history is not on file. Allergies is allergic to cat dander and pineapple. Home Medications Current Outpatient Medications Medication Instructions ??? gabapentin (NEURONTIN) 100 mg, oral, 2 times daily ??? sertraline (ZOLOFT) 50 mg, oral, Nightly OBJECTIVE Vitals Visit Vitals BP (!) 148/87 Pulse (!) 115 Temp 37.1 ??C (98.8 ??F) Resp 18 Temp (24hrs), Av.8 ??C (98.2 ??F), Min:36.4 ??C (97.5 ??F), Max:37.1 ??C (98.8 ??F) Body mass index is 46.03 kg/m??. No results found for: PTWT , PTHT Physical Examination General: Age appropriate, pleasant. No acute distress. Laying comfortably on exam stretcher. Skin: Warm, dry, intact, no diaphoresis. HEENT: Atraumatic, normocephalic head, Patient is handling secretions without trismus or drooling. Speaking in full sentences. Neck: Soft/supple, full range of motion. No cervical spine tenderness noted. Cardiology: Regular rate and rhythm, no rubs or gallops, S1 and S2 auscultated. Respiratory: Clear to auscultation bilaterally, no wheezes, rales or rhonchi. No accessory muscle use, retractions or tripoding; speaking in full sentences without difficulties. Abdominal/GI: Abdomen is not distended, Normal bowel sounds, abdomen soft and non-tender. No CVA tenderness. Peripheral Vascular: No edema on lower legs. Radial pulse 2 + and Dorsalis Pedis 1+ bilaterally. Neurological: No focal deficit. CN II-XII grossly intact. Call Center Analyst strength equal 5/5 bilateral upper extremities. Upper and lower extremities with strength 5/5 and equal bilaterally. Musculoskeletal: No calf tenderness or asymmetry. Ex fix on left lower extremity from mid tibia to mid femoral, femoral prescription elevated, small amount of bleeding noted no erythema noted Psychiatric: Appears anxious depressed mood & affect. LAB RESULTS (most recent) HEMATOLOGY Lab Results Component Value Date WBC 10.1 04/24/2024 HGB 11.9 (L) 04/24/2024 HCT 37.9 (L) 04/24/2024 MCV 79.8 04/24/2024 PLT 338 04/24/2024 CHEMISTRY Lab Results Component Value Date GLUCOSE 72 04/24/2024 NA 137 04/24/2024 K 4.8 04/24/2024 CO2 25 04/24/2024 CL 104 04/24/2024 BUN 14 04/24/2024 CREATININE 0.92 04/24/2024 EGFR 111 04/24/2024 CALCIUM 9.0 04/24/2024 MG 2.2 01/28/2024 PHOS 4.3 01/28/2024 ANIONGAP 8 04/24/2024 Radiology XR Femur 2+ Views Left (Results Pending) XR Tibia Fibula 2 Views Left (Results Pending) ASSESSMENT & PLAN Left lower extremity pain 38 y.o. male past medical history significant for left patellar tendon rupture status post patellartendon repair with long leg cast placement by Dr. Johnson on 01/17/2025. Patient returned to [facility] ED after having taken down the cast and falling resulting in rerupture patellar tendon, underwent left patellar tendon repair with Ex-Fix placement by Dr. Esquivel on 01/30/2025. Per Ortho surgery plan was to wait 3 months for the tendon to heal before removing the Ex-Fix. Patient discharged home to follow-up with orthopedic surgery team as an outpatient. Patient was seen by Dr. Johnson who recommend admitting patient to the medical service, n.p.o. after midnight and they will take to the patient or in the morning. Ortho surgery will follow Keep patient n.p.o. after midnight As needed analgesics, antipyretics, antiemetics Patient will undergo ex fix removal with examination under anesthesia to be performed by Dr. Ruiz tomorrow, X-ray of left tibia/fibula - pending Wound care Continue Lasix 40 mg daily ADHD Continue with Adderall 35 mg daily Insomnia Continue home med Ambien as needed Depression Continue home med sertraline DVT Prophylaxis: Hold chemical prophylaxis per surgery request Pneumoboots Code Status: Full code HCP: Patient refused to list any customer contact sales associate is his healthcare proxy or emergency contact Case Discussed with Dr. Johnson Cosigned by Richy Johnson MD at 05/14/2024 6:00 PM EDT Associated attestation - Richy Johnson MD - 05/14/2024 6:00 PM EDT This is a split/shared visit with CHONG Sutherland. I personally performed the medical decision making (MDM) for the care of this patient on 05/14/24 as documented below I have personally reviewed medical records and interpreted vital signs labs and radiology data of this patient. I discussed the case with ED department as well as Berna. I agree with physical exam assessment and plan as outlined in Berna's note. 38-year-old with left lower extremity pain and displaced hardware. Patient is planned to be taken to the operating room tomorrow. N.p.o. postmidnight. Agree with analgesics for now. She will get Dilaudid 0.5 to 1 mg for moderate to severe pain. Agree with continuation of Lasix. Chronic management as per Berna's note Richy Johnson MD 05/14/24 5:59 PM EDT documented in this encounter Procedure Notes * Elie Shetty MD - 05/15/2024 8:51 AM EDT REMOVAL FIXATION DEVICE EXTERNAL EXTR LOWER (L) OPERATIVE NOTE Date: 05/14/2024 - 05/15/2024 Location: [facility] OR Name: Danielle Villar, : 1985, Diagnosis Pre-op Diagnosis * Tendon rupture, traumatic, patella, left, sequela [S86.812S] Post-op Diagnosis * Tendon rupture, traumatic, patella, left, sequela [S86.812S] Procedures * REMOVAL FIXATION DEVICE EXTERNAL EXTR LOWER Additional Procedures Indications: Danielle Villar is an 38 y.o. male who is having surgery for * No pre-op diagnosis entered *. Surgeon(s) & Awnings Mechanic(s) * Elie Shetty MD - Primary Awnings Mechanic CHONG Howard certified Anesthesia: general ASA: III Estimated Blood Loss: Minimal Drains: * No LDAs found * Specimen: none Procedure Details: Patient seen and examined in the preoperative holding area. He was given preoperative antibiotics. Informed consent was obtained with the patient. He was taken the operating room placed supine on the OR table.He was placed under anesthesia. We then sterilely prepped and draped the left lower leg. I then proceeded to remove the external fixator components and remove the pins from his femur and tibia.Large C-arm fluoroscopic guidance was used to identify that all the hardware was removed and that there was no fractures in the bones.Pin sites were clean and no purulence was noted. The pin sites were cleaned with curette and Betadine and then irrigated with half liter of normal saline. Pin sites were left open to allow for secondary healing and granulation. They were covered with Xeroform and then gauze and Tegaderm. I did do range of motion of the kneeAnd found that patient had approximately 10 degrees of range of motion from 0 to 10 degrees. He was stiff and appears that the tendon has healed. Patient was placed into a hinged [place] knee brace locked in full extension. He was then awoken and transferred to the recovery room in stable condition. Postop instructions Nonweightbearing left lower extremity. Keep the brace on at all times. Okay to change dressing intoto 3 days and replace with new clean dressing. Reinforce dressing as necessary. Rest, ice, elevate.Resume regular home diet. Follow-up in 1 to 2 weeks in the office for wound check and possible initiation of some therapy and range of motion in the brace. Counseled the patient aggressively that he needs to be nonweightbearing and avoid trying to bend his knee and to keep the brace on at all times. Noncompliance will likely lead to a catastrophic failure of his surgery. Complications: None; patient tolerated the procedure well. Disposition: PACU - hemodynamically stable. Condition: stable documented in this encounter Consult Notes * CHONG Pina - 05/14/2024 2:26 PM EDT Orthopedic Trauma Consult Note CHIEF COMPLAINT Left lower extremity pain ASSESSMENT/PLAN Patient presents with left lower extremity pain. Patient is stable. Imaging demonstrates dislodgement of the femoral screws of the ex fix. Given this and the fact that the patient is approximately 3 months status post left patella tendon repair with ex fix placement, patient would benefit from removal of the ex fix as well as evaluation of left knee mobility under anesthesia. Patient communicatedunderstanding and agreement. - Weightbearing: Continue nonweightbearing on affected extremity - Activity: Elevate affected extremity above level of heart while resting; maintain left knee in strict extension at all times - Pain control: Continue current regimen - Dressing/wound care/DME: Wounds should be covered with a dry/sterile dressing - Misc: Continue IS; appreciate medical team management of comorbidities - Diet: Appropriate for a diet for now but should be NPO at 11:59 PM on 05/14 - Proc: Anticipate Left lower extremity ex fix removal with examination under anesthesia to be performed by Dr. Ruiz tomorrow, 05-15-24, with consent to be obtained at that time - Imaging: X-ray of left tibia/fibula has been ordered - DVT prophylaxis: Initiate mechanical DVT prophylaxis and hold chemical DVT prophylaxis HPI Patient is a 38 y.o. male who presents with left lower extremity pain. On 01-16-25, patient sustained a fall off of his scooter resulting in left lower extremity pain. Patient presented to [facility] ED. On 01-17-25, patient underwent left patellar tendon repair with long leg cast placement by Dr. Johnson. On 01-26-25, patient returned to [facility] ED after having taken down thecast and falling resulting in left lower extremity pain. On 01-30-25, patient underwent left patellar tendon repair with ex fix placement by Dr. Esquivel. Plan was to wait 3 months for the tendon to heal before removing the ex fix. Patient did not show up to multiple trauma clinic appointments. On 05-14-24, around 8:30 AM, patient was cleaning around the pin sites when he felt a pop resulting in left l ower extremity pain. On arrival, vitals were unremarkable. X-ray of the left femur demonstrated dislodgement of the femoral pins. Orthopedics was consulted. Patient states he is generally doing well. Reports that his left lower extremity pain is stable compared to prior. States that he has been using a wheelchair since January and has not applied any weight to his left lower extremity during that time. Patient denies numbness and paresthesias. Above information obtained from patient, patient's family if present, medical staff, and/or medicaldocumentation. ROS Patient states he is generally doing well. Reports that his left lower extremity pain is stable compared to prior. States that he has been using a wheelchair since January and has not applied any weight to his left lower extremity during that time. Patient denies numbness and paresthesias. PAST MEDICAL HISTORY He has a past medical history of Obesity (BMI 30.0-34.9) and Patellar tendon rupture (01/17/2024). PAST SURGICAL HISTORY He has a past surgical history that includes Patellar tendon repair (Left, 01/18/2024). ALLERGIES Cat dander and Pineapple MEDICATIONS Home Medications gabapentin (NEURONTIN) 100 mg capsule Take 1 capsule (100 mg total) by mouth 2 (two) times a day. oxyCODONE (ROXICODONE) 10 mg immediate release tablet () Take 1 tablet (10 mg total) by mouth every 6 (six) hours if needed for severe pain for up to 3 days. Max Daily Amount: 40 mg sertraline (ZOLOFT) 50 mg tablet Take 1 tablet (50 mg total) by mouth at bedtime. SOCIAL HISTORY He reports that he has quit smoking. His smoking use included cigarettes. He has never used smokeless tobacco. No history on file for alcohol use and drug use. FAMILY HISTORY family history is not on file. VITALS Vitals: 05/14/24 1444 BP: (!) 148/87 Pulse: (!) 115 Resp: 18 Temp: 37.1 ??C (98.8 ??F) SpO2: 97% PHYSICAL EXAM General: Alert and cooperative, lying comfortably in bed, in no acute distress HEENT: Normocephalic and atraumatic Pulmonary: No increased work of breathing appreciated and able to speak in full sentences Musculoskeletal: Left lower extremity- ex fix present with femoral screws elevated relative to the skin, tibial screws appear to be nondisplaced, pin sites with no erythema/drainage, fires EHL/FHL, dorsiflexion/plantarflexion intact, sensation intact distally, appears well-perfused Skin: Generally normal tone, dry, warm LABS Lab Results Component Value Date WBC 10.1 04/24/2024 HGB 11.9 (L) 04/24/2024 HCT 37.9 (L) 04/24/2024 PLT 338 04/24/2024 Lab Results Component Value Date NA 137 04/24/2024 K 4.8 04/24/2024 CL 104 04/24/2024 BUN 14 04/24/2024 CREATININE 0.92 04/24/2024 GLUCOSE 72 04/24/2024 CALCIUM 9.0 04/24/2024 No results found for: SEDRATE , CRP , URICACID Lab Results Component Value Date HGBA1C 6.9 (H) 01/28/2024 No results found for: PT , APTT IMAGING XR Knee 1-2 Views Left Narrative: History: Left knee pain. Recent fall with tendon rupture and surgery. Comparison: 04/09/2024 Findings: AP and crossfire lateral views of the left knee. The femorotibial and patellofemoral joint spaces appear intact. No acute fracture is identified. Knee brace apparatus noted. There is diffuse soft tissue swelling. Impression: Impression: Diffuse soft tissue swelling. No acute fracture identified. imedo ([id number]) -------- FINAL REPORT -------- Dictated By: Vanessa Reese Dictated Date: 05/04/2024 09:34 ET Assigned Physician: Vanessa Reese Reviewed and Electronically Signed By: Vanessa Reese Signed Date: 05/04/2024 09:36 ET Workstation ID: [id number] Transcribed By: Self Edit Transcribed Date: 05/04/2024 09:34 ET XR Ankle 3+ Views Left Narrative: History: Left ankle pain since recent fall. Comparison: Left tib-fib 04/24/2024 Findings: AP, oblique and lateral views of the left ankle. Marked soft tissue swelling is noted, especially along the lateral side of the ankle. No acute fracture is seen. Impression: Impression: 1. Marked soft tissue swelling. 2. No acute fracture identified. Network [employer] PA ([id number]) -------- FINAL REPORT -------- Dictated By: Vanessa Reese Dictated Date: 05/04/2024 09:32 ET Assigned Physician: Vanessa Reese Reviewed and Electronically Signed By: Vanessa Reese Signed Date: 05/04/2024 09:34 ET Workstation ID: [id number] Transcribed By: Self Edit Transcribed Date: 05/04/2024 09:34 ET XR Foot 3+ Views Left Narrative: History: Left foot pain since recent fall. Comparison: No comparison imaging at this institution. Findings: AP, oblique and lateral views of the left foot. A linear radiolucency appears to extend through the lateral cortex of the cuboid bone, seen only inthe oblique projection, with overlying soft tissue swelling, suspicious for nondisplaced fracture. The remainder of the included osseous structures appear unremarkable. The articular spaces are well-maintained. Impression: Impression: Possible nondisplaced fracture of the cuboid. Telerad CHONG ([id number]) -------- FINAL REPORT -------- Dictated By: Vanessa Reese Dictated Date: 05/04/2024 09:30 ET Assigned Physician: Vanessa Reese Reviewed and Electronically Signed By: Vanessa Reese Signed Date: 05/04/2024 09:32 ET Workstation ID: [id number] Transcribed By: Self Edit Transcribed Date: 05/04/2024 09:30 ET Above discussed with and agreed to by Dr. Alex Mcintosh PA-C documented in this encounter Plan of Treatment Scheduled Referrals Name Type Priority Associated Diagnoses Order Schedule Ambulatory referral to Home Health Outpatient Referral Routine Patellar tendon avulsion, left, sequela 1 Occurrences starting 05/16/2024 until 05/16/2025 documented as of this encounter Procedures Procedure Name Priority Date/Time Associated Diagnosis Comments CBC WITH AUTO DIFFERENTIAL Routine 05/16/2024 8:01 AM EDT CBC AND DIFFERENTIAL Routine 05/16/2024 8:01 AM EDT BASIC METABOLIC PANEL Routine 05/16/2024 8:01 AM EDT REMOVAL FIXATION DEVICE EXTERNAL EXTR [...] VIEWS LEFT STAT 05/14/2024 1:45 PM EDT documented in this encounter Results * (ABNORMAL) CBC auto differential (05/16/2024 8:01 AM EDT) [facility] WBC 7.6 4.8 - 10.8 K/mcL LAB HEMETOLOGY METHOD 05/16/2024 8:17 AM [facility] RBC 4.80 4.50 - 5.50 M[facility] LAB HEMETOLOGY METHOD 05/16/2024 8:17 AM [facility] Hemoglobin 11.8(L) 13.5 - 17.5 g/dL LAB HEMETOLOGY METHOD 05/16/2024 8:17 AM [facility] Hematocrit 37.5(L) 42.0 - 54.0 % LAB HEMETOLOGY METHOD 05/16/2024 8:17 AM [facility] MCV 77.6(L) 79.0 - 98.0 FL LAB HEMETOLOGY METHOD 05/16/2024 8:17 AM [facility] MCH 24.4(L) 27.0 - 32.0 pcg LAB HEMETOLOGY METHOD 05/16/2024 8:17 AM [facility] MCHC 31.5(L) 32.0 - 37.0 g/dL LAB HEMETOLOGY METHOD 05/16/2024 8:17 AM [facility] RDW 16.4(H) 11.0 - 15.0 % LAB HEMETOLOGY METHOD 05/16/2024 8:17 AM [facility] Platelets 424(H) 130 - 400 K/mcL LAB HEMETOLOGY METHOD 05/16/2024 8:17 AM [facility] MPV 8.8 7.0 - 11.0 FL LAB HEMETOLOGY METHOD 05/16/2024 8:17 AM [facility] NRBC 0.0 <1.0 % LAB HEMETOLOGY METHOD 05/16/2024 8:17 AM [facility] NRBC Absolute 0.00 <0.10 K/mcL LAB HEMETOLOGY METHOD 05/16/2024 8:17 AM [facility] Neutrophils Relative 63.7 % LAB HEMETOLOGY METHOD 05/16/2024 8:17 AM [facility] Lymphocytes Relative 24.6 % LAB HEMETOLOGY METHOD 05/16/2024 8:17 AM [facility] Monocytes Relative 10.0 % LAB HEMETOLOGY METHOD 05/16/2024 8:17 AM [facility] Eosinophils Relative 1.3 % LAB HEMETOLOGY METHOD 05/16/2024 8:17 AM [facility] Basophils Relative 0.3 % LAB HEMETOLOGY METHOD 05/16/2024 8:17 AM [facility] Immature Granulocytes Relative 0.1 % LAB HEMETOLOGY METHOD 05/16/2024 8:17 AM [facility] Neutrophils Absolute 4.86 1.50 - 7.00 K/mcL LAB HEMETOLOGY METHOD 05/16/2024 8:17 AM [facility] Lymphocytes Absolute 1.88 1.00 - 5.00 K/mcL LAB HEMETOLOGY METHOD 05/16/2024 8:17 AM [facility] Monocytes Absolute 0.76 0.20 - 1.00 K[facility] LAB HEMETOLOGY METHOD 05/16/2024 8:17 AM EDT [facility] Eosinophils Absolute 0.10 0.00 - 0.50 K[facility] LAB HEMETOLOGY METHOD 05/16/2024 8:17 AM EDT [facility] Basophils Absolute 0.02 0.00 - 0.20 K[facility] LAB HEMETOLOGY METHOD 05/16/2024 8:17 AM EDT [facility] Immature Granulocytes Absolute 0.01 0.00 - 0.03 K[facility] LAB HEMETOLOGY METHOD 05/16/2024 8:17 AM T [facility] Blood Venous blood specimen / Unknown Venipuncture / Unknown 05/16/2024 8:01 AM EDT 05/16/2024 8:11 AM EDT us Faviola Carvajal MD LAB BLOOD ORDERABLES Final Resul t [facility] [address] [place] [address], * Basic metabolic panel (05/16/2024 8:01 AM EDT) Sodium 137 133 - 145 mmol/L LAB CHEMISTRY METHOD 05/16/2024 8:48 AM T [facility] Potassium 3.6 3.5 - 5.5 mmol/L LAB CHEMISTRY METHOD 05/16/2024 8:48 AM [facility] Chloride 105 96 - 110 mmol/L LAB CHEMISTRY METHOD 05/16/2024 8:48 AM [facility] CO2 27 21 - 32 mmol/L LAB CHEMISTRY METHOD 05/16/2024 8:48 AM [facility] Anion Gap 5 3 - 11 LAB CHEMISTRY METHOD 05/16/2024 8:48 AM EDT [facility] Glucose 93 70 - 100 mg/dL LAB CHEMISTRY METHOD 05/16/2024 8:48 AM EDT [facility] BUN 11 5 - 25 mg/dL LAB CHEMISTRY METHOD 05/16/2024 8:48 AM EDT [facility] Creatinine 0.76 0.70 - 1.30 mg/dL LAB CHEMISTRY METHOD 05/16/2024 8:48 AM EDT [facility] eGFR 119 >=60 mL/min/1. 73m2 LAB CHEMISTRY METHOD 05/16/2024 8:48 AM EDT [facility] Comment:Calculation based on the??Chronic Kidney Disease Epidemiology Collaboration (CKD-EPI) equation refit??without adjustment for race. BUN/Creatinine Ratio 14.5 LAB CHEMISTRY METHOD 05/16/2024 8:48 AM EDT [facility] Calcium 8.8 8.5 - 10.5 mg/dL LAB CHEMISTRY METHOD 05/16/2024 8:48 AM EDT [facility] Blood Venous blood specimen / Unknown Venipuncture / Unknown 05/16/2024 8:01 AM EDT 05/16/2024 8:11 AM EDT us Faviola Carvajal MD LAB BLOOD ORDERABLES Final Resul t [facility] [address] [place] [address], * (ABNORMAL) Complete blood count (05/15/2024 4:23 AM EDT) WBC 4.4(L) 4.8 - 10.8 K/mcL LAB HEMETOLOGY METHOD 05/15/2024 4:39 AM EDT [facility] RBC 5.00 4.50 - 5.50 M/mcL LAB HEMETOLOGY METHOD 05/15/2024 4:39 AM EDT [facility] Hemoglobin 12.3(L) 13.5 - 17.5 g/dL LAB HEMETOLOGY METHOD 05/15/2024 4:39 AM EDT [facility] Hematocrit 39.0(L) 42.0 - 54.0 % LAB HEMETOLOGY METHOD 05/15/2024 4:39 AM [facility] MCV 78.2(L) 79.0 - 98.0 FL LAB HEMETOLOGY METHOD 05/15/2024 4:39 AM EDT [facility] MCH 24.6(L) 27.0 - 32.0 pcg LAB HEMETOLOGY METHOD 05/15/2024 4:39 AM EDT [facility] MCHC 31.5(L) 32.0 - 37.0 g/dL LAB HEMETOLOGY METHOD 05/15/2024 4:39 AM [facility] RDW 16.2(H) 11.0 - 15.0 % LAB HEMETOLOGY [facility]24 [facility] Plate[facility] 429(H) 130 - 400 K/mcL LAB HEMETOLOGY METHOD 05/15/2024 4:39 AM [facility] MPV 8.8 7.0 - 11.0 FL LAB HEMETOLOGY METHOD 05/15/2024 4:39 AM [facility] NRBC 0.0 <1.0 % LAB HEMETOLOGY METHOD 05/15/2024 4:39 AM [facility] NRBC Absolute 0.00 <0.10 K/mcL LAB HEMETOLOGY METHOD 05/15/2024 4:39 AM [facility] Blood Venous blood specimen / Unknown Venipuncture / Unknown 05/15/2024 4:23 AM EDT 05/15/2024 4:31 AM EDT us Ana Paula SCHWARZ LAB BLOOD ORDERABLES Final R esult [facility] [address] [place] [address], * (ABNORMAL) Basic metabolic panel (05/15/2024 4:23 AM EDT) Sodium 137 133 - 145 mmol/L LAB CHEMISTRY METHOD 05/15/2024 5:04 AM [facility] Potassium 3.5 3.5 - 5.5 mmol/L LAB CHEMISTRY METHOD 05/15/2024 5:04 AM [facility] Chloride 104 96 - 110 mmol/L LAB CHEMISTRY METHOD 05/15/2024 5:04 AM [facility] CO2 29 21 - 32 mmol/L LAB CHEMISTRY METHOD 05/15/2024 5:04 AM [facility] Anion Gap 4 3 - 11 LAB CHEMISTRY METHOD 05/15/2024 5:04 AM [facility] Glucose 88 70 - 100 mg/dL LAB CHEMISTRY METHOD 05/15/2024 5:04 AM [facility] BUN 7 5 - 25 mg/dL LAB CHEMISTRY METHOD 05/15/2024 5:04 AM [facility] Creatinine 0.69(L) 0.70 - 1.30 mg/dL LAB CHEMISTRY METHOD 05/15/2024 5:04 AM [facility] eGFR 123 >=60 mL/min/1. 73m2 LAB CHEMISTRY METHOD 05/15/2024 5:04 AM [facility] Comment:Calculation based on the??Chronic Kidney Disease Epidemiology Collaboration (CKD-EPI) equation refit??without adjustment for race. BUN/Creatinine Ratio 10.1 LAB CHEMISTRY METHOD 05/15/2024 5:04 AM [facility] Calcium 8.6 8.5 - 10.5 mg/dL LAB CHEMISTRY METHOD 05/15/2024 5:04 AM [facility] Blood Venous blood specimen / Unknown Venipuncture / Unknown 05/15/2024 4:23 AM EDT 05/15/2024 4:31 AM EDT us Ana Paula SCHWARZ LAB BLOOD ORDERABLES Final R esult [facility] ([facility] [address] [place] [address], [place] [phone] * XR Tibia Fibula 2 Views Left (05/14/2024 3:02 PM EDT) Anatomical Region Laterality Modality Lower Extremities, Lower [...] Signed Date: 05/14/2024 15:46 ET Workstation ID: [id number] Transcribed By: Self Edit Transcribed Date: 05/14/2024 [...] Signed Date: 05/14/2024 15:46 ET Workstation ID: [id number] Transcribed By: Self Edit Transcribed Date: 05/14/2024 [...] Signed Date: 05/14/2024 15:45 ET Workstation ID: [id number] Transcribed By: Self Edit Transcribed Date: 05/14/2024 15:42 ET Narrative 05/14/2024 3:45 PM EDT XR FEMUR 2+ VIEWS LEFT INDICATION: ? external fixator dislodgement TECHNIQUE: XR FEMUR 2+ VIEWS LEFT COMPARISON: Comparison examination is under a different [id number] Procedure Note Mónica Garg MD - 05/14/2024 XR FEMUR 2+ VIEWS LEFT INDICATION: ? external fixator dislodgement TECHNIQUE: XR FEMUR 2+ VIEWS LEFT COMPARISON: Comparison examination is under a different [id number] IMPRESSION: FINDINGS/IMPRESSION: There has been interval dislodgment of the femoralexternal fixation screws in the femoral diaphysis now terminating in thesoft tissues. Osteopenia and degenerative changes. Anatomic alignment. -------- FINAL REPORT -------- Dictated By: Mónica Garg Dictated Date: 05/14/2024 15:42 ET Assigned Physician: Mónica Garg Reviewed and Electronically Signed By: Mónica Garg Signed Date: 05/14/2024 15:45 ET Workstation ID: [id number] Transcribed By: Self Edit Transcribed Date: 05/14/2024 15:42 ET Alejandra Nicholas SCHWARZ IMG XR PROCEDURES Final Result documented in this encounter Visit Diagnoses Diagnosis Complication of procedure, initial encounter- Primary Complication of procedure, initial encounter Mechanical complication external fixation device w/internal component, initial encounter Tendon rupture, traumatic, patella, left, sequela Patellar tendon avulsion, left, sequela documented in this encounter Admitting Diagnoses Diagnosis Complication of procedure, initial encounter documented in this encounter Administered Medications Inactive Administered Medications - up to 3 most recent administrations Medication Order MAR Action Action Date Dose Rate Site acetaminophen (TYLENOL) tablet 1,000 mg 1,000 mg, oral, Every 8 hours scheduled, First dose on Mon05/14/24 at 2200, For 2 days, Scheduled medication for mild pain Given 05/16/2024 6:48 AM EDT 1,000 mg Given 05/15/2024 9:37 PM EDT 1,000 mg Given 05/15/2024 6:24 AM EDT 1,000 mg acetaminophen (TYLENOL) tablet 1,000 mg 1,000 mg, oral, Once as needed, mild pain, Starting on Mon05/15/24 at 1138, For 1 dose, Phase II/On Unit, If patient has not received tylenol in the last 6 hours amphetamine-dextroamphetamine (ADDERALL) tablet 30 mg 30 mg, oral, Daily, First dose (after last modification) on Mon05/15/24 at 0900 Given 05/16/2024 9:17 AM EDT 30 mg amphetamine-dextroamphetamine (ADDERALL) tablet 5 mg 5 mg, oral, Daily, First dose on Mon05/15/24 at 0900 Given 05/16/2024 9:17 AM EDT 5 mg aspirin EC tablet 325 mg 325 mg, oral, Daily, First dose on Mon05/16/24 at 0900, Do not crush, chew, or split., Indication: VTE/PE Prophylaxis Given 05/16/2024 9:17 AM EDT 325 mg ceFAZolin (ANCEF) 3 g in sterile water 30 mL IV syringe 3 g, intravenous, Administer over 3 Minutes, Every 6 hours, First dose on Mon05/15/24 at 1500, For 3 doses, Recovery & On Unit, Indication: Prophylaxis-Surgical Given 05/16/2024 3:48 AM EDT 3 g Given 05/15/2024 9:37 PM EDT 3 g Given 05/15/2024 3:56 PM EDT 3 g diphenhydrAMINE (BENADRYL) injection 12.5 mg 12.5 mg, intravenous, Once as needed, nausea and vomitting, Starting on Mon05/15/24 at 1138, For 1 dose, Phase II/On Unit, Give as THIRD antiemetic in order set. Only if this has not been given in the operating room or in PACU. furosemide (LASIX) tablet 40 mg 40 mg, oral, Daily, First dose on Mon05/15/24 at 0900 Given 05/16/2024 9:18 AM EDT 40 mg haloperidol lactate (HALDOL) injection 1 mg 1 mg, intravenous, Once as needed, nausea and vomitting, Starting on Mon05/15/24 at 1138, For 1 dose, Phase II/On Unit, Give as SECOND antiemetic in order set. Only if this has not been given in the operating room or in PACU. May be ordered via either intramuscular or intravenous route. If ordered IV, maximum of 5 mg/minute. HYDROmorphone (PF) (DILAUDID) injection 1 mg 1 mg, intravenous, Once, On Mon05/14/24 at 1225, For 1 dose Given 05/14/2024 12:50 PM EDT 1 mg HYDROmorphone (PF) (DILAUDID) injection 1 mg 1 mg, intravenous, Once, On Mon05/14/24 at 1441, For 1 dose Given 05/14/2024 3:02 PM EDT 1 mg HYDROmorphone (PF) (DILAUDID) injection 1 mg 1 mg, intravenous, Every 3 hours PRN, severe pain or when therapies for moderate pain were not effective, Starting on Mon05/14/24 at 1752 Given 05/15/2024 3:57 PM EDT 1 mg Given 05/15/2024 6:25 AM EDT 1 mg Given 05/15/2024 1:52 AM EDT 1 mg lactated Ringer's infusion intravenous, Continuous PRN, Starting on Mon05/15/24 at 0840, Anesthesia Intraprocedure Continued from OR 05/15/2024 9:40 AM EDT New Bag 05/15/2024 8:40 AM EDT 125 mL/hr ondansetron (PF) (ZOFRAN) injection 4 mg 4 mg, intravenous, Every 8 hours PRN, vomiting, nausea, Starting on Mon05/14/24 at 1449, -ONLY give IV if patient is unable to take orally. -If inadequate response within 30 minutes, proceed to next-line agent or contact provider if no further options ordered. ondansetron (PF) (ZOFRAN) injection 4 mg 4 mg, intravenous, Once as needed, nausea, vomiting, Starting on Mon05/15/24 at 1138, For 1 dose, Phase II/On Unit, Give as FIRST antiemetic in order set Infuse over 2 minutes. ondansetron ODT (ZOFRAN-ODT) disintegrating tablet 4 mg 4 mg, oral, Every 8 hours PRN, vomiting, nausea, Starting on Mon05/14/24 at 1449, -Give IV if patient is unable to take orally. -If inadequate response within 30 minutes, proceed to next-line agent or contact provider if no further options ordered. For ODT tablets: -Do not remove from blister pack until just before administering. -Patient should allow tablet to dissolve on tongue. oxyCODONE (ROXICODONE) immediate release tablet 10 mg 10 mg, oral, Every 6 hours PRN, moderate pain or when therapies for mild pain were not effective, Starting on Mon05/14/24 at 1752 Given 05/16/2024 10:59 AM EDT 1 0 mg Given 05/15/2024 4:11 AM EDT 10 mg oxyCODONE (ROXICODONE) immediate release tablet 5 mg 5 mg, oral, Once as needed, moderate pain, Starting on Mon05/15/24 at 1138, For 1 dose, Phase II/On Unit sertraline (ZOLOFT) tablet 25 mg 25 mg, oral, Daily, First dose on Mon05/15/24 at 0900 Given 05/16/2024 9:17 AM EDT 25 mg documented in this encounter Discontinued Medications Medication Sig Discontinue Reason Start Date End Da te sertraline (ZOLOFT) 50 mg tablet Take 1 tablet (50 mg total) by mouth at bedtime. Stop Taking at Discharge 02/06/2024 05/16/2024 oxyCODONE (ROXICODONE) 10 mg immediate release tabletIndications:Pain Take 1 tablet (10 mg total) by mouth every 6 (six) hours if needed for severe pain for up to 3 days. Max Daily Amount: 40 mg Stop Taking at Discharge 05/04/2024 05/16/2024 documented as of this encounter Historical Medications * This list may reflect changes made after this encounter. Ozempic 1 mg/dose (4 mg/3 mL) injection pen Inject 1 mg under the skin every 7 (seven) days. 04/23/2024 sertraline (ZOLOFT) 25 mg tablet Take 1 tablet (25 mg total) by mouth 1 (one) time each day. zolpidem (AMBIEN) 5 mg tablet Take 1 tablet (5 mg total) by mouth at bedtime as needed. at bedtime Max Daily Amount: 5 mg 05/09/2024 furosemide (LASIX) 40 mg tablet Take 1 tablet (40 mg total) by mouth 1 (one) time each day. for 30 days amphetamine-dextr oamphetamine (ADDERALL) 15 mg tablet Take 2 tablets (30 mg total) by mouth 1 (one) time each day. Max Daily Amount: 30 mg amphetamine-dextr oamphetamine (ADDERALL) 5 mg tablet Take 1 tablet (5 mg total) by mouth 1 (one) time each day. Total 35 mg daily Max Daily Amount: 5 mg added in this encounter Active and Recently Administered Medications Times are shown in EDT. Scheduled Medication Order 05/14/2024 05/15/2024 05/16/2024 acetaminophen (TYLENOL) tablet 1,000 mg 1,000 mg, oral, Every 8 hours scheduled, First dose on Mon05/14/24 at 2200, For 2 days, Scheduled medication for mild pain 2202 (Given - Provider: Leia Dubose RN) 0624 (Given - Provider: Sayra Katz RN)0841 (APR Hold - Provider: Automatic Transfer Provider - Reason: Patient not available)1138 (APR Unhold - Provider: Automatic Transfer Provider)1431 (Not Given - Provider: Geovanna Rojo RN - Reason: Patient/Resident/Agen t refused - education provided )2137 (Given - Provider: Peggy Monae RN) 0648 (Given - Provider: Peggy Monae RN)1631 (Not Given - Provider: Sayra Donovan RN - Reason: Patient/Resident/Agen t refused - education provided ) amphetamine-dextroamph etamine (ADDERALL) tablet 30 mg 30 mg, oral, Daily, First dose (after last modification) on Mon05/15/24 at 0900 0841 (APR Hold - Provider: Automatic Transfer Provider - Reason: Patient not available)0900 (Hold - Provider: Sayra Katz RN - Reason: See Provider Order)1138 (APR Unhold - Provider: Automatic Transfer Provider) 0917 (Given - Provider: Sayra Donovan RN) amphetamine-dextroamph etamine (ADDERALL) tablet 5 mg 5 mg, oral, Daily, First dose on Mon05/15/24 at 0900 0841 (APR Hold - Provider: Automatic Transfer Provider - Reason: Patient not available)0900 (Hold - Provider: Sayra Katz RN - Reason: See Provider Order)1138 (APR Unhold - Provider: Automatic Transfer Provider) 0917 (Given - Provider: Sayra Donovan RN) aspirin EC tablet 325 mg 325 mg, oral, Daily, First dose on Darcy 05/16/24 at 0900, Do not crush, chew, or split., Indication: VTE/PE Prophylaxis 09 (Given - Provider: Sayra Donovan RN) ceFAZolin (ANCEF) 3 g in sterile water 30 mL IV syringe (COMPLETED) 3 g, intravenous, Administer over 3 Minutes, Once, On Mon05/15/24 at 0900, For 1 dose, Preprocedure, Please give pre-op, Indication: Prophylaxis-Surgical 0853 (New Bag - Provider: Rina Turpin CRNA) ceFAZolin (ANCEF) 3 g in sterile water 30 mL IV syringe (COMPLETED) 3 g, intravenous, Administer over 3 Minutes, Every 6 hours, First dose on Mon05/15/24 at 1500, For 3 doses, Recovery & On Unit, Indication: Prophylaxis-Surgical 1556 (Given - Provider: Geovanna Rojo RN)2137 (Given - Provider: Peggy Monae RN) 0348 (Given - Provider: Peggy Monae RN) furosemide (LASIX) tablet 40 mg 40 mg, oral, Daily, First dose on Mon05/15/24 at 0900 0841 (APR Hold - Provider: Automatic Transfer Provider - Reason: Patient not available)0900 (Hold - Provider: Sayra Katz RN - Reason: See Provider Order)1138 (APR Unhold - Provider: Automatic Transfer Provider) 0918 (Given - Provider: Sayra Donovan, LAYLA) HYDROmorphone (PF) (DILAUDID) injection 1 mg (COMPLETED) 1 mg, intravenous, Once, On Mon05/14/24 at 1225, For 1 dose 1250 (Given - Provider: Patito Mcguire, LAYLA) HYDROmorphone (PF) (DILAUDID) injection 1 mg (COMPLETED) 1 mg, intravenous, Once, On Mon05/14/24 at 1441, For 1 dose 1502 (Given - Provider: Patito Mcguire, LAYLA) sertraline (ZOLOFT) tablet 25 mg 25 mg, oral, Daily, First dose on Mon05/15/24 at 0900 0841 (APR Hold - Provider: Automatic Transfer Provider - Reason: Patient not available)0900 (Not Given - Provider: Sayra Katz RN - Reason: See Provider Order)1138 (APR Unhold - Provider: Automatic Transfer Provider) 0917 (Given - Provider: Sayra Donovan, LAYLA) PRN Medication Order 05/14/2024 05/15/2024 05/16/2024 acetaminophen (TYLENOL) tablet 1,000 mg 1,000 mg, oral, Once as needed, mild pain, Starting on Mon05/15/24 at 1138, For 1 dose, Phase II/On Unit, If patient has not received tylenol in the last 6 hours diphenhydrAMINE (BENADRYL) injection 12.5 mg 12.5 mg, intravenous, Once as needed, nausea and vomitting, Starting on Mon05/15/24 at 1138, For 1 dose, Phase II/On Unit, Give as THIRD antiemetic in order set. Only if this has not been given in the operating room or in PACU. haloperidol lactate (HALDOL) injection 1 mg 1 mg, intravenous, Once as needed, nausea and vomitting, Starting on Mon05/15/24 at 1138, For 1 dose, Phase II/On Unit, Give as SECOND antiemetic in order set. Only if this has not been given in the operating room or in PACU. May be ordered via either intramuscular or intravenous route. If ordered IV, maximum of 5 mg/minute. HYDROmorphone (PF) (DILAUDID) injection 1 mg 1 mg, intravenous, Every 3 hours PRN, severe pain or when therapies for moderate pain were not effective, Starting on Mon05/14/24 at 1752 1817 (Given - Provider: Leia Dubose RN)2204 (Given - Provider: Leia Dubose RN) 0152 (Given - Provider: Leia Dubose RN)0625 (Given - Provider: Sayra Katz, LAYLA)0841 (APR Hold - Provider: Automatic Transfer Provider - Reason: Patient not available)1138 (APR Unhold - Provider: Automatic Transfer Provider)1557 (Given - Provider: Geovanna Rojo RN) lactated Ringer's infusion (CANCELED) intravenous, Continuous PRN, Starting on Mon05/15/24 at 0840, Anesthesia Intraprocedure 0840 (New Bag - Provider: Rina Turpin CRNA)0933 (Anesthesia Volume Adjustment - Provider: Rina Turpin CRNA)0940 (Continued from OR - Provider: Nette Starkey RN (Dee) - Comment: 200ml on arrival to pacu) naloxone (NARCAN) injection 0.04 mg 0.04 mg, intravenous, As needed, opioid reversal, IV Push every 1 min for 10 doses, Starting on Mon05/14/24 at 1450, For 10 doses, To Dilute: -Use 0.4 mg/mL vial , withdraw 1 mL and add 9 mL NS -FOLLOWING DILUTION, dose of 0.04 mg = 1 mL For PARTIAL Opioid Reversal: -For respiratory rate LESS than 10 or [place] Opioid-induced Sedation Scale (POSS) equal to 4 -May be repeated at 1 minute intervals to restore adequate respirations -Administer up to 10 doses (0.4 mg) 0841 (APR Hold - Provider: Automatic Transfer Provider - Reason: Patient not available)1138 (APR Unhold - Provider: Automatic Transfer Provider) ondansetron (PF) (ZOFRAN) injection 4 mg(Linked Group 1) 4 mg, intravenous, Every 8 hours PRN, vomiting, nausea, Starting on Mon05/14/24 at 1449, -ONLY give IV if patient is unable to take orally. -If inadequate response within 30 minutes, proceed to next-line agent or contact provider if no further options ordered. 0841 ([facility] Hold - Provider: Automatic Transfer Provider - Reason: Patient not available)1138 ([facility] Unhold - Provider: Automatic Transfer Provider) ondansetron (PF) (ZOFRAN) injection 4 mg 4 mg, intravenous, Once as needed, nausea, vomiting, Starting on Mon05/15/24 at 1138, For 1 dose, Phase II/On Unit, Give as FIRST antiemetic in order set Infuse over 2 minutes. ondansetron ODT (ZOFRAN-ODT) disintegrating tablet 4 mg(Linked Group 1) 4 mg, oral, Every 8 hours PRN, vomiting, nausea, Starting on Mon05/14/24 at 1449, -Give IV if patient is unable to take orally. -If inadequate response within 30 minutes, proceed to next-line agent or contact provider if no further options ordered. For ODT tablets: -Do not remove from blister pack until just before administering. -Patient should allow tablet to dissolve on tongue. 0841 ([facility] Hold - Provider: Automatic Transfer Provider - Reason: Patient not available)1138 ([facility] Unhold - Provider: Automatic Transfer Provider) oxyCODONE (ROXICODONE) immediate release tablet 10 mg 10 mg, oral, Every 6 hours PRN, moderate pain or when therapies for mild pain were not effective, Starting on Mon05/14/24 at 1752 0411 (Given - Provider: Sayra Katz RN)0841 ([facility] Hold - Provider: Automatic Transfer Provider - Reason: Patient not available)1138 ([facility] Unhold - Provider: Automatic Transfer Provider) 1059 (Given - Provider: Sayra Donovan RN) oxyCODONE (ROXICODONE) immediate release tablet 5 mg 5 mg, oral, Once as needed, moderate pain, Starting on Mon05/15/24 at 1138, For 1 dose, Phase II/On Unit zolpidem (AMBIEN) tablet 5 mg 5 mg, oral, Nightly PRN, sleep, Starting on Mon05/14/24 at 1752 0841 ([facility] Hold - Provider: Automatic Transfer Provider - Reason: Patient not available)1138 ([facility] Unhold - Provider: Automatic Transfer Provider) Linked Groups Order Group 1: ondansetron ODT (ZOFRAN-ODT) disintegrating tablet 4 mgJump to med 4 mg, oral, Every 8 hours PRN, vomiting, nausea, Starting on Mon05/14/24 at 1449, -Give IV if patient is unable to take orally. -If inadequate response within 30 minutes, proceed to next-line agent or contact provider if no further options ordered. For ODT tablets: -Do not remove from blister pack until just before administering. -Patient should allow tablet to dissolve on tongue. Or ondansetron (PF) (ZOFRAN) injection 4 mgJump to med 4 mg, intravenous, Every 8 hours PRN, vomiting, nausea, Starting on Mon05/14/24 at 1449, -ONLY give IV if patient is unable to take orally. -If inadequate response within 30 minutes, proceed to next-line agent or contact provider if no further options ordered. documented in this encounter Orders Medications Ordered That Robi ht Not Have Been Administered Count Last Ordered Date First Ordered Date acetaminophen (TYLENOL) tablet 1,000 mg 1 0 05/15/2024 ceFAZolin (ANCEF) 3 g in [place] water 30 mL IV syringe 1 05/15/2024 diphenhydrAMINE (BENADRYL) i njection 12.5 mg 2 05/15/2024 fentaNYL (PF) (SUBLIMAZE) injection 50 mcg 1 05/15/2024 haloperidol lactate (HALDOL) injection 1 mg 2 05/15/2024 HYDROmorphone (PF) injection 0.5 mg 1 05/15 ondansetron (PF) (ZOFRAN) injection 4 mg 2 05/15/2024 05/14/2024 oxyCODONE (ROXICODONE) immed iate release tablet 5 mg 2 05/15/2024 amphetamine-dextroamphetamin e (ADDERALL) tablet 30 mg 1 05/14/2024 HYDROmorphone (PF) (DILAUDID ) injection 0.5 mg 1 05/14/2024 HYDROmorphone (PF) (DILAUDID ) injection 1 mg 1 05/14/2024 naloxone (NARCAN) injection 0.04 mg 1 04/01 /2025 ondansetron ODT (ZOFRAN-ODT) disintegrating tablet 4 mg 1 05/14/2024 zolpidem (AMBIEN) tablet 5 mg 1 05/14/2024 Admission Count Last Ordered Date First Orde red Date ADMIT TO INPATIENT 1 05/14/2024 Transfer Count Last Ordered Date First Orde red Date ED TO FLOOR BED REQUEST 1 05/14/2024 Discharge Count Last Ordered Date First Orde red Date DISCHARGE PATIENT 1 05/16/2024 documented in this encounter Care Teams Straight Knife Machine Cutter Relationship Specialty Start Date End Date Livan Rosales MD [address] [place] [address] [address] [place], [place] PCP - General Internal Medicine 01/17/24 documented as of this encounter
--- OUTSIDE RECORDS SUMMARY | 2024-05-18 09:36 | XMS_ITS | Encounter Summary ---
Author Organization [facility] Address [address] [place] [address] Care Team Providers Care Geophysical E Logger Name Role Phone Livan Rosales MD Primary Care Provider + [phone] Reason for Visit * Auth/Cert (Routine) Specialty Diagnoses / Procedures Referred By Contac t Referred To Contact Diagnoses Complication of procedure, initial encounter Mechanical complication external fixation device w/internal component, initial encounter Procedures [facility] IP/OBS CARE INITIAL MODERATE LEVEL PER DAY Richy Johnson MD [address] [place] [id number] Phone: tel: fax: [facility] OR [address] [place] [phone] Phone: tel: Referral ID Status Reason Start Date Expiration Date Visits Re quested Visits Authorized [id number] 1 1 Encounter Details Date Type Department Care Team (Late st Contact Info) Description 05/15/2024 8:40 AM EDT Anesthesia Event [facility] OR [address] [place] [phone] Gucci Rodriguez MD [address] [place] [phone] Rina Turpin CRNA [address] [place] [phone] Anesthesia Record Procedure Summary Procedure Name Responsible Anesthesiologist Anesthesia Start Time Anesthesia Stop Time REMOVAL FIXATION DEVICE EXTERNAL EXTR LOWER (Left: Extremity Lower) Gucci Rodriguez MD 05/15/24 0840 05/15/24 0933 Events Date Time Event Comment 05/15/2024 0755 0840 An Start 0840 An Start Data The patient wa s reevaluated immediately before moderate or deep sedation use and before anesthesia induction. 0840 In Room 0847 An Induction 0849 An Intubation 0851 Proc Start 0918 Proc Fin 0926 An Extubation 0928 an stop data 0930 Out of Room 0930 Transport to PACU/ICU Patien t reassessed and ready for transfer, airway stable. Patient transport to designated recovery area. {Transport to PACU/ICU:[id number]} 0933 Handoff to RN I completed my handoff to the receiving nurse during which we: 1. Identified the patient 2. Identified the responsible provider 3. Reviewed the pertinent medical history 4. Discussed the surgical course 5. Reviewed intra-op anesthesia management and issues during anesthesia 6. Set expectations for post-procedure period 7. Allowed opportunity for questions and acknowledgement of understanding. 0933 An Stop Meds Name Total propofol (DIPRIVAN) injection 10 mg/mL 4 00 mg fentaNYL (SUBLIMAZE) injection 100 mcg ondansetron 2 mg/mL 4 mg midazolam (VERSED) injection 1 mg/mL 2 m g lidocaine PF (XYLOCAINE-MPF) local injec tion 2% 100 mg dexamethasone (DECADRON) injection 4 mg/ mL 8 mg ceFAZolin (ANCEF) 3 g in sterile water 3 0 mL IV syringe 3 g ketorolac (TORADOL) injection 30 mg 30 m g ketamine (KETALAR) injection 50 mg/mL sy ringe 50 mg haloperidol (HALDOL) injection 2 mg phenylephrine 1 mg/10 mL (100 mcg/mL) in 0.9% NaCl IV syringe 400 mcg ePHEDrine (AKOVAZ) PF injection 5 mg/mL 5 mg lactated Ringer's infusion 300 mL * Agents Name N2O Inspired N2O * Blood No blood administrations on file. Lines, Drains, and Airways Type Details Placement Removal Wound Incision; N; Knee; Anterior, Left; incision 01/18/24 1116 by Wound Incision; 01/31/24; Yes; Knee; Anterior, Left; at operative site 01/31/24 0000 by Gail Zambrano RN Wound Incision; 01/31/24; N; Yes; Leg; Anterior, Distal, Left, Upper; at operative site 01/31/24 0000 by Gail Zambrano RN Wound Incision; 01/31/24; N; Yes; Leg; Anterior, Distal, Left, Upper; at operative site 01/31/24 0000 by Gail Zambrano RN Wound Incision; 01/31/24; N; Yes; Pretibial; Left, Proximal; at operative site 01/31/24 0000 by Gail Zambrano RN Wound Incision; 01/31/24; N; Yes; Pretibial; Left, Medial; at operative site 01/31/24 0000 by Gail Zambrano RN Wound Abrasion; 02/02/24; 0300; N; Yes; Arm; Anterior, Distal, Left, Lower; patient scratch arm against Ex. Fix 02/02/24 0300 by Korin Davis RN Peripheral IV Placement Date: 03/09; Placement Time: 1250; Catheter Size: 20 G; Orientation: Anterior, Distal, Left, Upper; Location: Arm; Site Prep: Chlorhexidine; Insertion Attempts: 2; Patient Tolerance: Tolerated well; Removal Date: 05/16/24; Removal Time: 16405/14/24 1250 by Patito Mcguire RN 05/16/24 1647 by Rachael De RN LMA 05/15/24; 0849 (ha watkins via procedure documentation); 5; Classic; 05/15/24; 0926 05/15/24 0849 by Rina Turpin CRNA 05/15/24 0926 by Rina Turpin CRNA documented in this encounter Social History Tobacco Use Types Packs/Day Years [...] for your loved ones. For example, child care associate or elderly care for an older adult? [...] AM Walker RN documented in this encounter Progress Notes * Rina Turpin CRNA - 05/15/2024 9:33 AM EDT Patient: Danielle Villar Procedure Summary Date: 05/15/24 Room / Location: [facility] OR / [facility] OR Anesthesia Start: 839 Anesthesia Stop: 932 Procedure: REMOVAL FIXATION DEVICE EXTERNAL EXTR LOWER (Left: Extremity Lower) Diagnosis: Tendon rupture, traumatic, patella, left, sequela Surgeons: Elie Shetty MD Responsible Provider: Gucci Rodriguez MD Anesthesia Type: general ASA Status: 3 Anesthesia Plan: general Last Vitals: Vitals Value Taken Time BP 104/51 05/15/24 0933 Temp 97 05/15/24 0933 Pulse 91 05/15/24 0933 Resp 15 05/15/24 0933 SpO2 97 05/15/24 0933 Pain Score: 10 - Worst possible pain Anesthesia Post Evaluation Patient location during evaluation: PACU Patient participation: complete - patient participated Level of consciousness: awake Pain score: 0 Pain management: adequate Airway patency: patent Anesthetic complications: no Cardiovascular status: stable Respiratory status: face mask and spontaneous ventilation Hydration status: stable Comments: Patient was seen and evaluated prior to discharge from PACU. Note may have been written at a later time due to clinical necessity. Nausea: No Vomiting: No There were no known notable events for this encounter. * Rina Turpin CRNA - 05/15/2024 8:58 AM EDTAssociated Order(s): Intubation General Information and Staff Patient location during procedure: OR Performed by: Rina Turpin CRNA Authorized by: Gucci Rodriguez MD Intubation Airway not difficult Urgency: elective Final [...] 05/15/2024 8:49 AMStop Time: 05/15/2024 8:49 AM * Gucci Rodriguez MD - 05/15/2024 7:52 AM EDT 38 y.o. male scheduled for Complication of procedure, initial encounter; Mechanical complication exte* [REMOVAL FIXATION DEVICE EXTERNAL EXTR LOWER (Left: Extremity Lower)] Ht Readings from Last 1 Encounters: 05/14/24 1.803 m (71 ) Wt Readings from Last 1 Encounters: 05/14/24 150 kg (330 lb) Body mass index is 46.03 kg/m??. Past Medical History: Diagnosis Date Obesity (BMI 30.0-34.9) Patellar tendon rupture 01/17/2024 left Past Surgical History: Procedure Laterality Date PATELLAR TENDON REPAIR Left 01/18/2024 Anesthesia complications Denies Allergies Allergen Reactions Cat Dander itchy eyes, throat irritation, runny nose Pineapple Prior to Admission medications Medication Sig Start Date End Date Taking? Authorizing Provider Ozempic 1 mg/dose (4 mg/3 mL) injection pen Inject 1 mg under the skin every 7 (seven) days. 04/23/24 Yes Historical Provider, zolpidem (AMBIEN) 5 mg tablet Take 1 tablet (5 mg total) by mouth at bedtime as needed. at bedtime Max Daily Amount: 5 mg 05/09/24 Yes Jimy ProviderMD amphetamine-dextroamphetamine (ADDERALL) 15 mg tablet Take 2 tablets (30 mg total) by mouth 1 (one)time each day. Max Daily Amount: 30 mg Jimy Schilling MD amphetamine-dextroamphetamine (ADDERALL) 5 mg tablet Take 1 tablet (5 mg total) by mouth 1 (one) time each day. Total 35 mg daily Max Daily Amount: 5 mg Jimy Schilling MD furosemide (LASIX) 40 mg tablet Take 1 tablet (40 mg total) by mouth 1 (one) time each day. for 30 days Jimy Schilling MD gabapentin (NEURONTIN) 100 mg capsule Take 1 capsule (100 mg total) by mouth 2 (two) times a day. 02/06/24 03/07/24 Betsy Esteban MD sertraline (ZOLOFT) 25 mg tablet Take 1 tablet (25 mg total) by mouth 1 (one) time each day. Jimy ProviderMD sertraline (ZOLOFT) 50 mg tablet Take 1 tablet (50 mg total) by mouth at bedtime. 02/06/24 03/07/24 Betsy Esteban MD I have personally reviewed all the patient's medications with them prior to anesthesia. Current In-hospital Medications acetaminophen, 1,000 mg, oral, q8h EDER amphetamine-dextroamphetamine, 30 mg, oral, Daily amphetamine-dextroamphetamine, 5 mg, oral, Daily furosemide, 40 mg, oral, Daily sertraline, 25 mg, oral, Daily PRN medications: HYDROmorphone, naloxone, ondansetron (ZOFRAN-ODT) disintegrating tablet OR ondansetron, oxyCODONE, zolpidem Social History Tobacco Use Smoking status: Former Types: Cigarettes Smokeless tobacco: Never Is the patient a current smoker (e.g. cigarette, cigar, pip, e-cigarette, or mariajuana)? Yes [] No[x] Patient previously instructed to abstain from smoking on the day of procedure? Yes [] No[] Patient smoked on the day of procedure? Yes [] No[] ASPIRE smoking VBR: [] Not interested in quitting [] Interested in quitting- referred to treatment [] Interested in quitting - treatment provided Visit Vitals BP (!) 145/82 (BP Location: Right arm;Upper, Patient Position: Lying) Pulse 86 Temp 36.5 ??C (97.7 ??F) (Oral) Resp 16 Ht 1.803 m (71 ) Wt 150 kg (330 lb) SpO2 99% BMI 46.03 kg/m?? Smoking Status Former BSA 2.61 m?? LABS: Lab Results Component Value Date WBC 4.4 (L) 05/15/2024 HGB 12.3 (L) 05/15/2024 HCT 39.0 (L) 05/15/2024 MCV 78.2 (L) 05/15/2024 PLT 429 (H) 05/15/2024 Lab Results Component Value Date GLUCOSE 88 05/15/2024 CALCIUM 8.6 05/15/2024 NA 137 05/15/2024 K 3.5 05/15/2024 CO2 29 05/15/2024 CL 104 05/15/2024 BUN 7 05/15/2024 CREATININE 0.69 (L) 05/15/2024 No results found for: INR , PROTIME No results found for: PTT Relevant Problems No relevant active problems Clinical information reviewed: Tobacco Allergies Meds Med Hx Surg Hx Fam Hx Soc Hx Anesthesia Plan ASA 3 Anesthesia Plan: general General Anesthesia Considerations: ETT Anesthesia Considerations general ETT Anesthesia Risks Discussed dental injury, nausea, pain, sore throat, corneal abrasion, allergic reaction and serious complications Induction method: intravenous Postoperative administration of opioids is intended. Anesthetic plan and risks discussed with patient. Use of blood products discussed with patient who. Anesthesia Plan discussed with ASSISTANT RESEARCH SCIENTIST. Anesthesia Evaluation Airway Mallampati: II Thyromental distance: >3 FB Neck ROM: fullnot intubatedno noted risk Dental Pulmonary breath sounds clear to auscultation Cardiovascular Rhythm: regular Rate: normal Neuro/Psych Mental Status: alert and oriented GI/Hepatic/Renal Endo/Other Comments: Morbid obesity Abdominal Abdomen: soft. Bowel sounds: normal. PONV RISK SCORE: 2 Vitals: 05/14/24 1058 05/14/24 1444 05/14/24 1729 05/15/24 0300 BP: (!) 137/95 (!) 148/87 (!) 145/97 (!) 145/82 BP Location: Left arm Right arm;Upper Patient Position: Sitting Lying Pulse: 109 (!) 115 (!) 113 86 Resp: 18 18 20 16 Temp: 36.4 ??C (97.5 ??F) 37.1 ??C (98.8 ??F) 36.6 ??C (97.9 ??F) 36.5 ??C (97.7 ??F) TempSrc: Oral Oral SpO2: 98% 97% 96% 99% Weight: 150 kg (330 lb) Height: 1.803 m (71 ) SpO2 Readings from Last 1 Encounters: 05/15/24 99% WBC Date Value Ref Range Status 05/15/2024 4.4 (L) 4.8 - 10.8 K/mcL Final RBC Date Value Ref Range Status 05/15/2024 5.00 4.50 - 5.50 M/mcL Final Hemoglobin Date Value Ref Range Status 05/15/2024 12.3 (L) 13.5 - 17.5 g/dL Final Hematocrit Date Value Ref Range Status 05/15/2024 39.0 (L) 42.0 - 54.0 % Final Platelets Date Value Ref Range Status 05/15/2024 429 (H) 130 - 400 K/mcL Final MCV Date Value Ref Range Status 05/15/2024 78.2 (L) 79.0 - 98.0 FL Final Allergies Allergen Reactions Cat Dander itchy eyes, throat irritation, runny nose Pineapple STOP BANG: No data recorded NPO Status: No data recorded documented in this encounter Plan of Treatment Not on file documented as of this encounter Procedures Procedure Name Priority Date/Time Associated Diagnosis Comments TH AN LMA(NO CHARGE) Routine 05/15/2024 8:58 AM EDT documented in this encounter Results * TH AN LMA(NO CHARGE) (05/15/2024 8:58 AM EDT) Rina Brito CRNA - 05/15/2024 8:58 AM EDT Rina [...] Rodriguez MD ANESTHESIA ORDERABLES Final Re sult documented in this encounter Visit Diagnoses Not on filedocumented in this encounter Administered Medications Inactive Administered Medications - up to 3 most recent administrations Medication Order MAR Action Action Date Dose Rate Site ceFAZolin (ANCEF) 3 g in sterile water 30 mL IV syringe 3 g, intravenous, Administer over 3 Minutes, Once, On Mon05/15/24 at 0900, For 1 dose, Preprocedure, Please give pre-op, Indication: Prophylaxis-Surgical New Bag 05/15/2024 8:53 AM EDT 3 g dexAMETHasone (DECADRON) injection intravenous, As needed, Starting on Mon05/15/24 at 0854, Anesthesia Intraprocedure Given 05/15/2024 8:54 AM EDT 8 mg ePHEDrine sulfate (PF) (AKOVAZ) 5 mg/mL injection intravenous, As needed, Starting on Mon05/15/24 at 0903, Anesthesia Intraprocedure Given 05/15/2024 9:03 AM EDT 5 mg fentaNYL (PF) (SUBLIMAZE) injection intravenous, As needed, Starting on Mon05/15/24 at 0847, Anesthesia Intraprocedure Given 05/15/2024 8:51 AM EDT 50 mcg Given 05/15/2024 8:47 AM EDT 50 mcg haloperidol lactate (HALDOL) injection intramuscular, As needed, Starting on Mon05/15/24 at 0908, Anesthesia Intraprocedure Given 05/15/2024 9:08 AM EDT 2 mg ketamine (KETALAR) injection intravenous, As needed, Starting on Mon05/15/24 at 0851, Anesthesia Intraprocedure Given 05/15/2024 8:54 AM EDT 25 mg Given 05/15/2024 8:51 AM EDT 25 mg ketorolac (TORADOL) injection intravenous, As needed, Starting on Mon05/15/24 at 0908, Anesthesia Intraprocedure Given 05/15/2024 9:08 AM EDT 30 mg lactated Ringer's infusion intravenous, Continuous PRN, Starting on Mon05/15/24 at 0840, Anesthesia Intraprocedure Continued from OR 05/15/2024 9:40 AM EDT New Bag 05/15/2024 8:40 AM EDT 125 mL/hr lidocaine (PF) (XYLOCAINE-MPF) 2 % injection injection, As needed, Starting on Mon05/15/24 at 0847, Anesthesia Intraprocedure Given 05/15/2024 8:47 AM EDT 100 mg midazolam (VERSED) injection intravenous, As needed, Starting on Mon05/15/24 at 0840, Anesthesia Intraprocedure Given 05/15/2024 8:40 AM EDT 2 mg ondansetron (PF) (ZOFRAN) injection intravenous, As needed, Starting on Mon05/15/24 at 0906, Anesthesia Intraprocedure Given 05/15/2024 9:06 AM EDT 4 mg phenylephrine (MARIO-SYNEPHRINE) injection intravenous, As needed, Starting on Mon05/15/24 at 0857, Anesthesia Intraprocedure Given 05/15/2024 9:02 AM EDT 10 0 mcg Given 05/15/2024 8:57 AM EDT 100 mcg Given 05/15/2024 8:54 AM EDT 100 mcg propofoL (DIPRIVAN) injection intravenous, As needed, Starting on Mon05/15/24 at 0847, Anesthesia Intraprocedure Given 05/15/2024 8:47 AM EDT 40 0 mg documented in this encounter Care Teams Geophysical E Logger Relationship Specialty Start Date End Date Livan Rosales MD [address] [place] [address] Dr Patricia Moore MA PCP - General Internal Medicine 01/17/24 documented as of this encounter
--- OUTSIDE RECORDS SUMMARY | 2024-05-18 09:36 | XMS_ITS | Encounter Summary ---
Author Organization [facility] Address [address] [place] [address] Care Team Providers Care Immigration Services Officer Name Role Phone Livan Rosales MD Primary Care Provider + [phone] Reason for Visit * Reason Comments Leg Pain Left leg pain * Auth/Cert (Routine) Specialty Diagnoses / Procedures Referred By Contac t Referred To Contact Diagnoses Complication of procedure, initial encounter Mechanical complication external fixation device w/internal component, initial encounter Procedures [facility] IP/OBS CARE INITIAL MODERATE LEVEL PER DAY Richy Johnson MD [address] [place] [address] Phone: tel: fax: [facility] OR [address] [place] [phone] Phone: tel: Referral ID Status Reason Start Date Expiration Date Visits Re quested Visits Authorized [id number] 1 1 Encounter Details Date Type Department Care Team (Late st Contact Info) Description 05/15/2024 8:30 AM EDT - 05/15/2024 10:00 AM EDT Surgery [facility] OR [address] [place] [phone] Elie Shetty MD [address] [place] [phone] REMOVAL FIXATION DEVICE EXTERNAL EXTR LOWER Surgery Details Date/Time Status Location OR Service Patient Class Case Class Case Type Trauma Case? 05/15/2024 8:30 AM Posted [facility] OR OR 03 Orthopedics Inpatient Panel 1 Procedure LRB Anes Op Region Wound Class Comments REMOVAL FIXATION DEVICE EXTERNAL EXTR LOWER Left general Extremity Lower Class I/ Clean Removal hardware LLE Surgeon Surgeon Role Service Panel Elie Shetty MD Primary Orthopedics 1 Case Notes Hardware removal left lower extremity with exam under anesthesia, c arm documented in this encounter Social History Tobacco [...] for your loved ones. For example, child neurologist or elderly care for an older adult? [...] Sign Reading Time Taken Comments Blood Pressure 127/73 05/15/2024 10:00 AM EDT Pulse 89 05/15/2024 10:00 AM EDT Temperature 36.2 ??C (97.1 ??F) 05/15/2024 9:33 AM ED T Respiratory Rate 14 05/15/2024 10:00 AM EDT Oxygen Saturation 98% 05/15/2024 10:00 AM EDT Inhaled Oxygen Concentration - - Weight [...] from the original note were not included. [place] DISCHARGE SUMMARY Patient Information Danielle Villar : [...] Dr. Johnson on 01/17/2025. Patient returned to [facility] ED after having taken down the [...] Dr. Johnson on 01/17/2025. Patient returned to [facility] ED after having taken down the [...] Garg SignedDate: 05/14/2024 15:46 ET Workstation ID: [id number] Transcribed By: Self Edit Transcribed Date: 05/14/2024 15:45 ET XR Femur 2+ Views Left Result Date: 05/14/2024 XR FEMUR 2+ VIEWS LEFT INDICATION: ? external fixator dislodgement TECHNIQUE: XR FEMUR 2+ VIEWS LEFT COMPARISON: Comparison examination is under a different [id number] FINDINGS/IMPRESSION: There has been interval dislodgment of the femoral external fixation screws inthe femoral diaphysis now terminating in the soft tissues. Osteopenia and degenerative changes. Anatomic alignment. -------- FINAL REPORT -------- Dictated By: Mónica Garg Dictated Date: 05/14/2024 15:42 ET Assigned Physician: Mónica Garg Reviewed and Electronically Signed By: Mónica Garg Signed Date: 05/14/2024 15:45 ET Workstation ID: [id number] Transcribed By: Self Edit Transcribed Date: 05/14/2024 [...] Signed Date: 05/14/2024 15:46 ET Workstation ID: [id number] Transcribed By: Self Edit Transcribed Date: 05/14/2024 15:45 ET XR Femur 2+ Views Left Narrative: XR FEMUR 2+ VIEWS LEFT INDICATION: ? external fixator dislodgement TECHNIQUE: XR FEMUR 2+ VIEWS LEFT COMPARISON: Comparison examination is under a different [id number] Impression: FINDINGS/IMPRESSION: There has been interval dislodgment of the femoral external fixation screws in the femoral diaphysis now terminating in the soft tissues. Osteopenia and degenerative changes. Anatomic alignment. -------- FINAL REPORT -------- Dictated By: Mónica Garg Dictated Date: 05/14/2024 15:42 ET Assigned Physician: Mónica Garg Reviewed and Electronically Signed By: Mónica Garg Signed Date: 05/14/2024 15:45 ET Workstation ID: [id number] Transcribed By: Self Edit Transcribed Date: 05/14/2024 15:42 ET Follow-Up Instructions and Recommendations ORTHOPEDIC DISCHARGE INSTRUCTIONS Diagnosis: Left lower extremity ex fix dislodgement Surgery: Left lower extremity hardware removal on 05-15-[address] Ruiz - Follow up with [facility] in 2 weeks. If [...] your follow up appointment. - Please call [facility] with any questions or concerns. [facility] [address] [place] [phone] More than 30 minutes spent on the discharge summary. documented in this encounter Discharge Instructions * Discharge Instructions* CHONG Pina - 05/15/2024 10:10 AM EDT ORTHOPEDIC DISCHARGE INSTRUCTIONS Diagnosis: Left lower extremity ex fix dislodgement Surgery: Left lower extremity hardware removal on 05-15-[address] Ruiz - Follow up with [facility] in 2 weeks. If [...] your follow up appointment. - Please call [facility] with any questions or concerns. [facility] [address] [place] [phone] documented in this encounter Medications at Time [...] Departure Means Destination Comment s Home-Health Care [facility] documented in this encounter Progress Notes * Rachael De RN - 05/16/2024 4:47 PM EDT Patient states understanding to discharge instructions. IV line removed. Meds to bed arranged for patient. Patient to follow up with all out patient providers. Patient states he does not have any questions. Iftikhar driving patient home. * Breana Ruvalcaba, PT - 05/16/2024 11:15 AM EDT [facility] Physical Therapy Evaluation & Treatment PT Discharge Recommendations: Home independent Staff Recommendations for safe patient handling: supervision with walker NWIldefonso left PETTY Modified Nadine Scale Score: AM-PAC 6 Clicks Scoring Form: [...] is a 38 y.o. male admitted to [facility] on 05/14/2024. Patient Active Problem List Diagnosis [...] Home Access: Elevator Prior Function Level of [place]: Independent with mobility and functional transfers Ambulation [...] Home Access Elevator Prior Function Level of [place] Independent with mobility and functional transfers Ambulation [...] is a 38 y.o. male admitted to [facility] on 05/14/2024 for Complication of procedure, initial [...] Disposition Home or Self Care * Sabrina Machado OT - 05/16/2024 10:45 AM EDT [facility] Occupational Therapy Evaluation DATE: May TIME IN: 1045 TIME OUT: 1120 Pt: Danielle Villar ROOM: [address] [place] [address] Discharge Recommendation: Home Independent without services Equipment [...] is a 38 y.o. male admitted to [facility] on 05/14/2024. Occupational Therapy evaluation and treatment [...] Hearing: Intact Speech: Intact Vision: Vision: Intact 05/16/24 1045 OT Last Visit OT Received On 05/16/24 [...] Bathroom Equipment None Prior Function Level of [place] Independent with mobility and functional transfers Ambulation [...] encounter performed with LAYLA Colbert at bedside. Gerson Mcintosh PA-C * Carina Taylor RN - 05/15/2024 4:37 [...] repair 01/30. pain management, wound care, OR 4/2, PT eval Dispo: w/c, walker, med rides for transportation needs. neglected OPT surgical F/U r/t patient did not show up to multiple follow-up appointments. * Faviola Carvajal MD - 05/15/2024 3:50 PM EDT Images from the original note were not included. CAREY PROGRESS NOTE Date: 05/15/2024 Author: Faviola Carvajal MD Patient ID: Danielle Villar is a 38 y.o. male : 1985 MR#: [id number] 05/14/2024 SUBJECTIVE Patient seen and examined after [...] Signed Date: 05/14/2024 15:46 ET Workstation ID: [id number] Transcribed By: Self Edit Transcribed Date: 05/14/2024 15:45 ET XR Femur 2+ Views Left Narrative: XR FEMUR 2+ VIEWS LEFT INDICATION: ? external fixator dislodgement TECHNIQUE: XR FEMUR 2+ VIEWS LEFT COMPARISON: Comparison examination is under a different [id number] Impression: FINDINGS/IMPRESSION: There has been interval dislodgment of the femoral external fixation screws in the femoral diaphysis now terminating in the soft tissues. Osteopenia and degenerative changes. Anatomic alignment. -------- FINAL REPORT -------- Dictated By: Mónica Garg Dictated Date: 05/14/2024 15:42 ET Assigned Physician: Mónica Garg Reviewed and Electronically Signed By: Mónica Garg Signed Date: 05/14/2024 15:45 ET Workstation ID: [id number] Transcribed By: Self Edit Transcribed Date: 05/14/2024 15:42 ET ASSESSMENT & PLAN 38 y.o. male past medical history significant for left patellar tendon rupture status post patellartendon repair with long leg cast placement by Dr. Johnson on 01/17/2025. Patient returned to [facility] ED after having taken down the [...] infectious concerns): [] Yes / [x] No Internal Combustion Engineer: [] Yes / [] No If YES, Cardiac Rhythm: [] NSR, [] SB, [] ST, [] A-FIB, [] A-Flutter, [] Pacemaker, [] 1st Degree HB, [] 2nd Degree HB, [] 3rd Degree HB Reason for Internal Combustion Engineer: VS: Visit Vitals BP (!) 148/87 Pulse [...] ED Summary of Care: [place] [facility] [place], Pt states he was trying to put on his pants today and felt the bar extend and felt pain. Also reports some bloody discharge. Pt did follow upwith orthopedics a couple weeks ago and was told he would continue to have the external fixation for a few more weeks. Submitted by and Phone Extension: Cynthia [phone] * Patito Mcguire RN - 05/14/2024 10:52 AM EDT Patient had surgery in [facility] for prevent ligaments being torn again. Has [...] at which time they report he will continueto have this external fixator for a few [...] Signed Date: 05/14/2024 15:46 ET Workstation ID: [id number] Transcribed By: Self Edit Transcribed Date: 05/14/2024 [...] Mónica Garg Reviewed and Electronically Signed By: Móniac Garg Signed Date: 05/14/2024 15:45 ET Workstation ID: [id number] Transcribed By: Self Edit Transcribed Date: 05/14/2024 [...] Given 05/14/24 1502) ED Course as of 05/14/24 1652 Tue May 14, 2024 [address] Johnson from orthopedics who recommends admission to medical service, n.p.o. after midnight with plan for operating room tomorrow to remove external fixation device from femur. [BT] ED Course User Index [BT] CHONG Kaiser Clinical Impressions as of 05/14/24 1652 Complication of procedure, initial encounter Mechanical complication [...] PHYSICAL Please contact author [CHONG Sutherland] via Piktochart/[employer]. Patient: Danielle Villar Admission Date/Time: 05/14/2024 10:38 [...] Dr. Johnson on 01/17/2025. Patient returned to [facility] ED after having taken down the [...] No focal deficit. CN II-XII grossly intact. Environmental Geologist strength equal 5/5 bilateral upper extremities. Upper [...] Dr. Johnson on 01/17/2025. Patient returned to [facility] ED after having taken down the [...] code HCP: Patient refused to list any machine repair person is his healthcare proxy or emergency contact Case Discussed with Dr. Johnson Cosigned by Richy Johnson MD at 05/14/2024 6:00 PM EDT Associated attestation - Richy Johnson MD - 05/14/2024 6:00 PM EDT This is a split/shared visit with CHONG Sutherland. I personally performed the medical decision making (MDM) for the care of this patient on 04/01/25 as documented below I have personally reviewed [...] OPERATIVE NOTE Date: 05/14/2024 - 05/15/2024 Location: [facility] OR Name: Danielle Villar, : 1985, Diagnosis Pre-op Diagnosis * Tendon rupture, traumatic, patella, left, sequela [S86.812S] Post-op Diagnosis * Tendon rupture, traumatic, patella, left, sequela [S86.812S] Procedures * REMOVAL FIXATION DEVICE EXTERNAL EXTR LOWER Additional Procedures Indications: Danielle Villar is an 38 y.o. male who is having surgery for * No pre-op diagnosis entered *. Surgeon(s) & Mouthpiece Maker(s) * Elie Shetty MD - Primary Mouthpiece Maker CHONG Howard certified Anesthesia: general ASA: III [...] healed. Patient was placed into a hinged [place] knee brace locked in full extension. He [...] left lower extremity pain. Patient presented to [facility] ED. On 01-17-25, patient underwent left patellar tendon repair with long leg cast placement by Dr. Johnson. On 01-26-25, patient returned to [facility] ED after having taken down thecast [...] tissue swelling. No acute fracture identified. Telerad PA ([id number]) -------- FINAL REPORT -------- Dictated By: Vanessa Reese Dictated Date: 05/04/2024 09:34 ET Assigned Physician: Vanessa Reese Reviewed and Electronically Signed By: Vanessa Reese Signed Date: 05/04/2024 09:36 ET Workstation ID: [id number] Transcribed By: Self Edit Transcribed Date: 05/04/2024 [...] 2. No acute fracture identified. Telerad PA ([id number]) -------- FINAL REPORT -------- Dictated By: Vanessa Reese Dictated Date: 05/04/2024 09:32 ET Assigned Physician: Vanessa Reese Reviewed and Electronically Signed By: Vanessa Reese Signed Date: 05/04/2024 09:34 ET Workstation ID: [id number] Transcribed By: Self Edit Transcribed Date: 05/04/2024 [...] nondisplaced fracture of the cuboid. Telerad CHONG ([id number]) -------- FINAL REPORT -------- Dictated By: Vanessa Reese Dictated Date: 05/04/2024 09:30 ET Assigned Physician: Vanessa Reese Reviewed and Electronically Signed By: Vanessa Reese Signed Date: 05/04/2024 09:32 ET Workstation ID: [id number] Transcribed By: Self Edit Transcribed Date: 05/04/2024 09:30 ET Above discussed with and agreed to by Dr. Alex Mcintosh PA-C documented in this encounter Plan of Treatment Scheduled Referrals Name Type Priority Associated Diagnoses Order Schedule Ambulatory referral to [facility] Out[facility] Referral Routine Patellar tendon avulsion, [...] CBC auto differential (05/16/2024 8:01 AM EDT) [facility] WBC 7.6 4.8 - 10.8 K/mcL LAB HEMETOLOGY METHOD 05/16/2024 8:17 AM [facility] RBC 4.80 4.50 - 5.50 M/mcL LAB HEMETOLOGY METHOD 05/16/2024 8:17 AM [facility] Hemoglobin 11.8(L) 13.5 - 17.5 g/dL LAB HEMETOLOGY METHOD 05/16/2024 8:17 AM [facility] Hematocrit 37.5(L) 42.0 - 54.0 % LAB HEMETOLOGY METHOD 05/16/2024 8:17 AM [facility] MCV 77.6(L) 79.0 - 98.0 FL LAB HEMETOLOGY METHOD 05/16/2024 8:17 AM [facility] MCH 24.4(L) 27.0 - 32.0 pcg LAB HEMETOLOGY METHOD 05/16/2024 8:17 AM [facility] MCHC 31.5(L) 32.0 - 37.0 g/dL LAB HEMETOLOGY METHOD 05/16/2024 8:17 AM [facility] RDW 16.4(H) 11.0 - 15.0 % LAB HEMETOLOGY METHOD 05/16/2024 8:17 AM [facility] Platelets 424(H) 130 - 400 K/mcL LAB HEMETOLOGY METHOD 05/16/2024 8:17 AM [facility] MPV 8.8 7.0 - 11.0 FL LAB HEMETOLOGY METHOD 05/16/2024 8:17 AM [facility] NRBC 0.0 <1.0 % LAB HEMETOLOGY METHOD 05/16/2024 8:17 AM [facility] NRBC Absolute 0.00 <0.10 K/mcL LAB HEMETOLOGY METHOD 05/16/2024 8:17 AM T [facility] Neutrophils Relative 63.7 % LAB HEMETOLOGY METHOD 05/16/2024 8:17 AM [facility] Lymphocytes Relative 24.6 % LAB HEMETOLOGY METHOD 05/16/2024 8:17 AM [facility] Monocytes Relative 10.0 % LAB HEMETOLOGY METHOD 05/16/2024 8:17 AM [facility] Eosinophils Relative 1.3 % LAB HEMETOLOGY METHOD 05/16/2024 8:17 AM [facility] Basophils Relative 0.3 % LAB HEMETOLOGY METHOD 05/16/2024 8:17 AM [facility] Immature Granulocytes Relative 0.1 % LAB HEMETOLOGY METHOD 05/16/2024 8:17 AM [facility] Neutrophils Absolute 4.86 1.50 - 7.00 K/mcL LAB HEMETOLOGY METHOD 05/16/2024 8:17 AM [facility] Lymphocytes Absolute 1.88 1.00 - 5.00 K/mcL LAB HEMETOLOGY METHOD 05/16/2024 8:17 AM [facility] Monocytes Absolute 0.76 0.20 - 1.00 K/mcL LAB HEMETOLOGY METHOD 05/16/2024 8:17 AM [facility] Eosinophils Absolute 0.10 0.00 - 0.50 K/mcL LAB HEMETOLOGY METHOD 05/16/2024 8:17 AM [facility] Basophils Absolute 0.02 0.00 - 0.20 K/mcL LAB HEMETOLOGY METHOD 05/16/2024 8:17 AM [facility] Immature Granulocytes Absolute 0.01 0.00 - 0.03 K/mcL LAB HEMETOLOGY METHOD 05/16/2024 8:17 AM [facility] Blood Venous blood specimen / Unknown Venipuncture / Unknown 05/16/2024 8:01 AM EDT 05/16/2024 8:11 AM EDT us Faviola Carvajal MD LAB BLOOD ORDERABLES Final Resul t [facility] [address] [place] [address], * Basic metabolic panel (05/16/2024 8:01 AM EDT) Sodium 137 133 - 145 mmol/L LAB CHEMISTRY METHOD 05/16/2024 8:48 AM [facility] Potassium 3.6 3.5 - 5.5 mmol/L LAB CHEMISTRY METHOD 05/16/2024 8:48 AM [facility] Chloride 105 96 - 110 mmol/L LAB CHEMISTRY METHOD 05/16/2024 8:48 AM [facility] CO2 27 21 - 32 mmol/L LAB CHEMISTRY METHOD 05/16/2024 8:48 AM [facility] Anion Gap 5 3 - 11 LAB CHEMISTRY METHOD 05/16/2024 8:48 AM [facility] Glucose 93 70 - 100 mg/dL LAB CHEMISTRY METHOD 05/16/2024 8:48 AM [facility] BUN 11 5 - 25 mg/dL LAB CHEMISTRY METHOD 05/16/2024 8:48 AM [facility] Creatinine 0.76 0.70 - 1.30 mg/dL LAB CHEMISTRY METHOD 05/16/2024 8:48 AM [facility] eGFR 119 >=60 mL/min/1. 73m2 LAB CHEMISTRY METHOD 05/16/2024 8:48 AM [facility] Comment:Calculation based on the??Chronic Kidney Disease Epidemiology Collaboration (CKD-EPI) equation refit??without adjustment for race. BUN/Creatinine Ratio 14.5 LAB CHEMISTRY METHOD 05/16/2024 8:48 AM EDT [facility] Calcium 8.8 8.5 - 10.5 mg/dL LAB CHEMISTRY METHOD 05/16/2024 8:48 AM [facility] Blood Venous blood specimen / Unknown Venipuncture / Unknown 05/16/2024 8:01 AM EDT 05/16/2024 8:11 AM EDT us Faviola Carvajal MD LAB BLOOD ORDERABLES Final Resul t [facility] [address] [place] [address], [place] [phone] * (ABNORMAL) Complete blood count (05/15/2024 4:23 AM EDT) WBC 4.4(L) 4.8 - 10.8 K/mcL LAB HEMETOLOGY METHOD 05/15/2024 4:39 AM [facility] RBC 5.00 4.50 - 5.50 M/mcL LAB HEMETOLOGY METHOD 05/15/2024 4:39 AM [facility] Hemoglobin 12.3(L) 13.5 - 17.5 g/dL LAB HEMETOLOGY METHOD 05/15/2024 4:39 AM [facility] Hematocrit 39.0(L) 42.0 - 54.0 % LAB HEMETOLOGY METHOD 05/15/2024 4:39 AM [facility] MCV 78.2(L) 79.0 - 98.0 FL LAB HEMETOLOGY METHOD 05/15/2024 4:39 AM [facility] MCH 24.6(L) 27.0 - 32.0 pcg LAB HEMETOLOGY METHOD 05/15/2024 4:39 AM [facility] MCHC 31.5(L) 32.0 - 37.0 g/dL LAB HEMETOLOGY METHOD 05/15/2024 4:39 AM EDT [facility] RDW 16.2(H) 11.0 - 15.0 % LAB HEMETOLOGY METHOD 05/15/2024 4:39 AM EDT [facility] Platelets 429(H) 130 - 400 K/mcL LAB HEMETOLOGY METHOD 05/15/2024 4:39 AM EDT [facility] MPV 8.8 7.0 - 11.0 FL LAB HEMETOLOGY METHOD 05/15/2024 4:39 AM EDT [facility] NRBC 0.0 <1.0 % LAB HEMETOLOGY METHOD 05/15/2024 4:39 AM EDT [facility] NRBC Absolute 0.00 <0.10 K/mcL LAB HEMETOLOGY METHOD 05/15/2024 4:39 AM EDT [facility] Blood Venous blood specimen / Unknown Venipuncture / Unknown 05/15/2024 4:23 AM EDT 05/15/2024 4:31 AM EDT us Ana Paula SCHWARZ LAB BLOOD ORDERABLES Final R esult [facility] [address] [place] [address], * (ABNORMAL) Basic metabolic panel (05/15/2024 4:23 AM EDT) Sodium 137 133 - 145 mmol/L LAB CHEMISTRY METHOD 05/15/2024 5:04 AM EDT [facility] Potassium 3.5 3.5 - 5.5 mmol/L LAB CHE[facility]STR[facility] Chloride 104 96 - 110 mmol/L LAB CHEMISTRY METHOD 05/15/2024 5:04 AM [facility] CO2 29 21 - 32 mmol/L LAB CHEMISTRY METHOD 05/15/2024 5:04 AM [facility] Anion Gap 4 3 - 11 LAB CHEMISTRY METHOD 05/15/2024 5:04 AM [facility] Glucose 88 70 - 100 mg/dL LAB CHEMISTRY METHOD 05/15/2024 5:04 AM [facility] BUN 7 5 - 25 mg/dL LAB CHEMISTRY METHOD 05/15/2024 5:04 AM [facility] Creatinine 0.69(L) 0.70 - 1.30 mg/dL LAB CHEMISTRY METHOD 05/15/2024 5:04 AM [facility] eGFR 123 >=60 mL/min/1. 73m2 LAB CHEMISTRY METHOD 05/15/2024 5:04 AM [facility] Comment:Calculation based on the??Chronic Kidney Disease Epidemiology Collaboration (CKD-EPI) equation refit??without adjustment for race. BUN/Creatinine Ratio 10.1 LAB CHEMISTRY METHOD 05/15/2024 5:04 AM [facility] Calcium 8.6 8.5 - 10.5 mg/dL LAB CHEMISTRY METHOD 05/15/2024 5:04 AM [facility] Blood Venous blood specimen / Unknown Venipuncture / Unknown 05/15/2024 4:23 AM EDT 05/15/2024 4:31 AM EDT us Ana Paula SCHWARZ LAB BLOOD ORDERABLES Final R esult [facility] [address] [place] [address], * XR Tibia Fibula 2 Views Left [...] Signed Date: 05/14/2024 15:46 ET Workstation ID: [id number] Transcribed By: Self Edit Transcribed Date: 05/14/2024 [...] Signed Date: 05/14/2024 15:46 ET Workstation ID: [id number] Transcribed By: Self Edit Transcribed Date: 05/14/2024 [...] Signed Date: 05/14/2024 15:45 ET Workstation ID: [id number] Transcribed By: Self Edit Transcribed Date: 05/14/2024 15:42 ET Narrative 05/14/2024 3:45 PM EDT XR FEMUR 2+ VIEWS LEFT INDICATION: ? external fixator dislodgement TECHNIQUE: XR FEMUR 2+ VIEWS LEFT COMPARISON: Comparison examination is under a different [id number] Procedure Note Mónica Garg MD - 05/14/2024 XR FEMUR 2+ VIEWS LEFT INDICATION: ? external fixator dislodgement TECHNIQUE: XR FEMUR 2+ VIEWS LEFT COMPARISON: Comparison examination is under a different [id number] IMPRESSION: FINDINGS/IMPRESSION: There has been interval dislodgment of the femoralexternal fixation screws in the femoral diaphysis now terminating in thesoft tissues. Osteopenia and degenerative changes. Anatomic alignment. -------- FINAL REPORT -------- Dictated By: Mónica Garg Dictated Date: 05/14/2024 15:42 ET Assigned Physician: Mónica Garg Reviewed and Electronically Signed By: Mónica Garg Signed Date: 05/14/2024 15:45 ET Workstation ID: [id number] Transcribed By: Self Edit Transcribed Date: 05/14/2024 15:42 ET Alejandra SCHWARZ IMKatherine XR PROCEDURES Final Result documented in this encounter Visit Diagnoses Diagnosis Complication of procedure, initial encounter- Primary Complication of procedure, initial encounter Mechanical complication external fixation device w/internal component, initial encounter Tendon rupture, traumatic, patella, left, sequela Patellar tendon avulsion, left, sequela Tendon rupture, traumatic, patella, left, sequela documented in this encounter Admitting [...] Given 05/16/2024 9:17 AM EDT 325 mg diphenhydrAMINE (BENADRYL) injection 12.5 mg 12.5 mg, [...] Given 05/15/2024 1:52 AM EDT 1 mg ondansetron (PF) (ZOFRAN) injection 4 mg 4 [...] (APR Unhold - Provider: Automatic Transfer Provider) 09 (Given - Provider: Sayra Donovan RN) aspirin EC tablet 325 mg 325 mg, oral, Daily, First dose on Darcy 05/16/24 at 0900, Do not crush, chew, or split., Indication: VTE/PE Prophylaxis 916 (Given - Provider: Sayra Donovan RN) ceFAZolin [...] Indication: Prophylaxis-Surgical 1556 (Given - Provider: Geovanna Rojo, RN)2137 (Given - Provider: Peggy Monae RN) [...] 1 dose 1502 (Given - Provider: Patito Mcguire RN) sertraline (ZOLOFT) tablet 25 mg 25 mg, [...] at 1752 1817 (Given - Provider: Leia Dubose, RN)2204 (Given - Provider: Leia Dubose RN) 0152 (Given - Provider: Leia Dubose RN)0625 (Given - Provider: Sayra Katz, LAYLA)0841 ([facility] Hold - Provider: Automatic Transfer Provider - Reason: Patient not available)1138 ([facility] Unhold - Provider: Automatic Transfer Provider)1557 (Given - Provider: Geovanna Rojo RN) naloxone (NARCAN) injection 0.04 mg 0.04 mg, [...] up to 10 doses (0.4 mg) 0841 ([facility] Hold - Provider: Automatic Transfer Provider - Reason: Patient not available)1138 ([facility] Unhold - Provider: Automatic Transfer Provider) ondansetron (PF) (ZOFRAN) injection 4 mg(Linked Group 1) 4 mg, intravenous, Every 8 hours PRN, vomiting, nausea, Starting on Mon05/14/24 at 1449, -ONLY give IV if patient is unable to take orally. -If inadequate response within 30 minutes, proceed to next-line agent or contact provider if no further options ordered. 0841 ([facility] Hold - Provider: Automatic Transfer Provider - Reason: Patient not available)1138 ([facility] Unhold - Provider: Automatic Transfer Provider) ondansetron [...] allow tablet to dissolve on tongue. 0841 ([facility] Hold - Provider: Automatic Transfer Provider - Reason: Patient not available)1138 ([facility] Unhold - Provider: Automatic Transfer Provider) oxyCODONE (ROXICODONE) immediate release tablet 10 mg 10 mg, oral, Every 6 hours PRN, moderate pain or when therapies for mild pain were not effective, Starting on Mon05/14/24 at 1752 0411 (Given - Provider: Sayra Katz RN)0841 ([facility] Hold - Provider: Automatic Transfer Provider - Reason: Patient not available)1138 ([facility] Unhold - Provider: Automatic Transfer Provider) 1059 (Given - Provider: Sayra Donovan RN) oxyCODONE (ROXICODONE) immediate release tablet 5 mg 5 mg, oral, Once as needed, moderate pain, Starting on Mon05/15/24 at 1138, For 1 dose, Phase II/On Unit zolpidem (AMBIEN) tablet 5 mg 5 mg, oral, Nightly PRN, sleep, Starting on Mon05/14/24 at 1752 0841 ([facility] Hold - Provider: Automatic Transfer Provider - Reason: Patient not available)1138 ([facility] Unhold - Provider: Automatic Transfer Provider) Linked [...] Ordered Date acetaminophen (TYLENOL) tablet 1,000 mg 2 0 05/15/2024 05/14/2024 aspirin EC tablet 325 mg 1 05/15/2024 ceFAZolin (ANCEF) 3 g in [place] water 30 mL IV syringe 2 05/15/2024 diphenhydrAMINE (BENADRYL) i njection 12.5 mg 2 05/15/2024 fentaNYL (PF) (SUBLIMAZE) injection 50 mcg 1 05/15/2024 haloperidol lactate (HALDOL) injection 1 mg 2 05/15/2024 HYDROmorphone (PF) injection 0.5 mg 1 05/15 ondansetron (PF) (ZOFRAN) injection 4 mg 2 05/15/2024 05/14/2024 oxyCODONE (ROXICODONE) immed iate release tablet 5 mg 2 05/15/2024 amphetamine-dextroamphetamin e (ADDERALL) tablet 30 mg 2 05/14/2024 amphetamine-dextroamphetamin e (ADDERALL) tablet 5 mg 1 05/14/2024 furosemide (LASIX) tablet 40 mg 1 HYDROmorphone (PF) (DILAUDID ) injection 0.5 mg 1 05/14/2024 HYDROmorphone (PF) (DILAUDID ) injection 1 mg 4 05/14/2024 naloxone (NARCAN) injection 0.04 mg 1 05/14 ondansetron ODT (ZOFRAN-ODT) disintegrating tablet 4 mg 1 05/14/2024 oxyCODONE (ROXICODONE) immed iate release tablet 10 mg 1 05/14/2024 sertraline (ZOLOFT) tablet 25 mg 1 05/15/19 zolpidem (AMBIEN) tablet 5 mg 1 05/14/2024 Admission Count Last Ordered Date First Orde red Date ADMIT TO INPATIENT 1 05/14/2024 Transfer Count Last Ordered Date First Orde red Date ED TO FLOOR BED REQUEST 1 05/14/2024 Discharge Count Last Ordered Date First Orde red Date DISCHARGE PATIENT 1 05/16/2024 documented in this encounter Care Teams Immigration Services Officer Relationship Specialty Start Date End Date Livan Rosales MD [address] [place] [address] Dr [address] [place] PCP - General Internal Medicine 01/17/24 documented as of this encounter
[2024-05-18 09:48] VITALS: BP 138/90; PULSE 110; TEMP 36.8; O2SAT 96
--- NOTE | 2024-05-18 09:48 | MHC.OFFWIV ---
Intake Vital Signs 05/18/24 09:48 Height 5 ft 11 in BMI Reason not done Patient refused/unable BP 138/90 H Blood Pressure Location Rt brachial Position Sitting Pulse 110 H Pulse Source Pulse Oximeter Temp 98.2 F Temp Source Oral Pulse Oximetry (%) 96 Oxygen Delivery Method Room Air Intake Visit Reasons: EP-Lower lip swollen Patient Tobacco Use Status: Current everyday Tobacco user Allergies cat dander Allergy (Severe, Verified 05/18/24 10:46) Itchy Eyes No Known Drug Allergies Allergy (Severe, Verified 05/18/24 10:46) none Seasonal Allergies Allergy (Intermediate, Verified 05/18/24 10:46) snee pineapple Allergy (Verified 05/18/24 10:46) Itching Medication List - Last Reconciled 05/18/24 by ANTOINETTE Green-ANDRES albuterol sulfate 90 mcg/actuation (Ventolin HFA) 2 puffs inhalation RQ4H PRN 30 days B-complex with vitamin C 1 cap PO DAILY 90 days cholecalciferol (vitamin D3) 25 mcg PO DAILY 90 days dextroamphetamine-amphetamine 15 mg (Adderall) 30 mg PO DAILY dextroamphetamine-amphetamine 5 mg (Adderall) 5 mg PO DAILY furosemide 40 mg See Protocol PO DAILY 30 days [hand held shower head As directed] [Hip Kit with long handle As directed] oxycodone mg PO semaglutide 1 mg (0.75 mL) subcut QWEEK 4 weeks sertraline 25 mg PO DAILY [Shoe horn As directed] [shower chair As directed] [Sock aid As directed] zolpidem (Ambien) 5 mg PO BEDTIME Do you need a note to return to daycare/school/sports/work: No HPI HPI Comments History of Present Illness Details - The patient is a 38-year-old male presenting with swollen bottom lip, right side . - The swelling began on , following surgical intervention on Monday. - The patient reports no previous history of similar symptoms. - Reports taking meds post-op but none that he has not taken previously - He is not on ACEI -Denies fever, chills, chest pain, trouble swallowing. Exam Awake alert NAD Managing secretions Speaking in full sentences Very mild edema of Right lower lip; no ulcers, no tongue swelling, no drooling. No ac adenopathy Multiple face piercings including the lip. Not new. No infection. Normal respirations Mild tachycardia, BP borderline During the visit, I explained to the patient that the swelling likely resulted from the placement of an endotracheal tube used during their recent surgical procedure. The tube and securing tape might have applied pressure, leading to swelling that should gradually resolve. Options to manage symptoms were discussed, including hydration, saltwater rinses, and use of Vaseline to maintain moisture on the lips. I advised against the use of hydrogen peroxide. I also explored potential medication solutions with the patient, who consented to the use of ibuprofen to help manage inflammation and discomfort. The importance of taking ibuprofen with food was emphasized. In case of worsening symptoms or lack of improvement, the patient was informed of the option to contact their primary care physician or revisit the clinic. Additionally, follow-up logistics with the patient?s healthcare system were confirmed. 1. Swollen Lip: The swelling is attributed to postoperative effects due to an endotracheal tube. Treatment consists of ibuprofen for inflammation and symptomatic relief, alongside non-pharmacologic measures such as hydration, use of Vaseline, and saltwater rinses. The patient was cautioned to avoid hydrogen peroxide use. 2. incidental tachycardia; reviewed chart, this is chronic. f/u with pcp. same for BP. [facility] Medical History (Updated 04/16/24 @ 04:34 by Livan Rosales MD) Abdominal pain Abdominal swelling Alcoholism Asthma Chronic constipation Dyspnea Elevated LFTs GERD without esophagitis Morbid obesity with BMI of 40.0-44.9, adult Obesity (BMI 30-39.9) Pure hypercholesterolemia Rupture of left patellar tendon Schizoaffective disorder Schizoaffective disorder, bipolar type Smoker Vasectomy evaluation Vasectomy evaluation Vitamin D deficiency Surgical History (Updated 05/18/24 @ 10:56 by Bertha Martinez, [facility]) No significant past surgical history Family History Mother No problems noted. Father No problems noted. Social History Household Members: None Household Members Other:: none Housing: Apartment Do you presently have visiting nurse or other home services: No Alcohol intake: current Alcohol intake frequency: 3 or more drinks per day Alcohol type: beer and hard liquor Patient Tobacco Use Status: Current everyday Tobacco user Tobacco use type: Cigarette Cigarette Packs Per Day: 1 Cigarettes Per Day: 20.0 e-Cigarette/Vaping Use: Former Use Second Hand Smoke Exposure: No Substance Use Type: Marijuana service: No Current occupational status: disabled Sexual orientation: Don't Know Cognitive needs: No Hearing needs: No Vision needs: No Physical Exam Vital Signs: Last Vital Signs Temp 98.2 F 05/18/24 09:48 Pulse 110 H 05/18/24 09:48 BP 138/90 H 05/18/24 09:48 Pulse Ox 96 05/18/24 09:48 Oxygen Delivery Method Room Air 05/18/24 09:48 Assessment & Plan Assessment & Plan (1) Swollen lip: Code(s): R22.0 - Localized swelling, mass and lump, head (2) Smoker: Code(s): F17.200 - Nicotine dependence, unspecified, uncomplicated (3) Post-operative state: Code(s): Z98.890 - Other specified postprocedural states (4) Tachycardia: Code(s): R00.0 - Tachycardia, unspecified (5) Elevated blood pressure reading: Code(s): R03.0 - Elevated blood-pressure reading, without diagnosis of hypertension Plan . Medications: New ibuprofen 600 mg PO Q8H 7 days PRN 21 tabs 0RF pain Patient Instructions: - Take ibuprofen three times a day with food for inflammation and pain. - Perform warm saltwater rinses regularly. - Apply Vaseline to keep lips moisturized. - Stay hydrated with plenty of fluids. - Avoid using hydrogen peroxide on the lip. - Monitor the swelling, and should it persist or worsen, consult your primary care physician. Patient was informed and verbally consented to the use of an ambient scribe for clinic note documentation during this visit. Coding Level of Care Code Est Pt Level 4 (18494) Diagnoses Swollen lip R22.0 Smoker F17.200 Post-operative state Z98.890 Tachycardia R00.0 Elevated blood pressure reading R03.0
== END 2024-05-18 11:47 | disposition home or self-care (01) ==
LOC: HO.HMCWIC 09:33
PROVIDERS: PCP Internal Medicine; Visit Provider Nurse Practitioner Family
DX: R22.0 Localized swelling, mass and lump, head (principal); F17.200 Nicotine dependence, unspecified, uncomplicated; Z98.890 Other specified postprocedural states; R00.0 Tachycardia, unspecified; R03.0 Elevated blood-pressure reading, without diagnosis of hypertension

== ENCOUNTER → 2024-05-18 09:33 | Outpatient (BNVA) | payer OTHER, SELFPAY | PROVIDERS: PCP Internal Medicine; Visit Provider Nurse Practitioner Family | DX: R22.0 Localized swelling, mass and lump, head (principal); R00.0 Tachycardia, unspecified; R03.0 Elevated blood-pressure reading, without diagnosis of hypertension; Z98.890 Other specified postprocedural states; F17.200 Nicotine dependence, unspecified, uncomplicated; Z71.6 Tobacco abuse counseling | CPT/HCPCS: 99212 ==

== ENCOUNTER → 2024-07-22 08:07 | Outpatient (BNVA) | payer OTHER, SELFPAY | PROVIDERS: PCP Internal Medicine; Visit Provider Surgery ==

== ENCOUNTER 2024-08-27 13:29 | Outpatient (AMB) | payer OTHER, SELFPAY ==
--- NOTE | 2024-08-27 13:31 | MHC.PC.OV ---
Vital Signs 08/27/24 13:33 Height 5 ft 11 in Weight 291 lb 6 oz BMI 40.6 BP 132/86 Blood Pressure Location Lt brachial Position Sitting Pulse 119 H Pulse Source Pulse Oximeter Pulse Oximetry (%) 97 Oxygen Delivery Method Room Air Intake Visit Reasons: 4 Months f/u- A1C needed Retail Advertising Sales Manager Required: No Accompanied by: Self / Same As Patient Allergies cat dander Allergy (Severe, Verified 08/27/24 13:58) Itchy Eyes No Known Drug Allergies Allergy (Severe, Verified 08/27/24 13:58) none Seasonal Allergies Allergy (Intermediate, Verified 08/27/24 13:58) snee pineapple Allergy (Verified 08/27/24 13:58) Itching Medication List - Last Reconciled 08/27/24 by Livan Rosales MD albuterol sulfate 90 mcg/actuation (Ventolin HFA) 2 puffs inhalation RQ4H PRN 30 days B-complex with vitamin C 1 cap PO DAILY 90 days cholecalciferol (vitamin D3) 25 mcg PO DAILY 90 days dextroamphetamine-amphetamine 15 mg (Adderall) 30 mg PO DAILY dextroamphetamine-amphetamine 5 mg (Adderall) 5 mg PO DAILY furosemide 40 mg PO DAILY [hand held shower head As directed] [Hip Kit with long handle As directed] ibuprofen 600 mg PO Q8H PRN 7 days oxycodone mg PO semaglutide 2 mg (0.75 mL) subcut QWEEK 4 weeks sertraline 25 mg PO DAILY [Shoe horn As directed] [shower chair As directed] [Sock aid As directed] zolpidem (Ambien) 5 mg PO BEDTIME Tobacco use date assessed: 08/27/24 Dental Screening Dental Screen Date: 08/27/24 Did you have a dental visit in the last 12 months?: No Did you have a dental problem in the last 6 months where you did not have access to dental care?: No Was dental information given to patient?: Patient has dentist HPI 4 Months f/u- A1C needed HPI Details Patient comes in today for his follow-up visit States that he feels okay Notes that his left knee is still bothering him frequently but it feels a lot better than it did a few months ago He denies any headaches or dizziness Denies any chest pains, no increased shortness of breath No nausea/vomiting, no abdominal pain No change in bowel habits noted He has no follow-up labs done recently He is also requesting for a prescription for nicotine patches to again help him quit smoking [facility] Medical History Rupture of left patellar tendon GERD without esophagitis Schizoaffective disorder Dyspnea Vasectomy evaluation Chronic constipation Obesity (BMI 30-39.9) Morbid obesity with BMI of 40.0-44.9, adult Abdominal pain Abdominal swelling Vasectomy evaluation Schizoaffective disorder, bipolar type Smoker Vitamin D deficiency Pure hypercholesterolemia Elevated LFTs Alcoholism Asthma Surgical History History of surgery on lower extremity No significant past surgical history Family History Mother No problems noted. Father No problems noted. Social History Household Members: None Household Members Other:: none Housing: Apartment Do you presently have visiting nurse or other home services: No Alcohol intake: current Alcohol intake frequency: 3 or more drinks per day Alcohol type: beer and hard liquor Patient Tobacco Use Status: Current everyday Tobacco user Tobacco use type: Cigarette Cigarette Packs Per Day: 1 Cigarettes Per Day: 7 e-Cigarette/Vaping Use: Former Use Second Hand Smoke Exposure: No Substance Use Type: Marijuana service: No Current occupational status: disabled Sexual orientation: Don't Know Cognitive needs: No Hearing needs: No Vision needs: No Questionnaire PHQ-9 Over the last 2 weeks, how often have you been bothered by any of the following problems? 1. Little interest or pleasure in doing things: not at all 2. Feeling down, depressed, or hopeless: not at all 3. Trouble falling or staying asleep, or sleeping too much: not at all 4. Feeling tired or having little energy: not at all 5. Poor appetite or overeating: not at all 6. Feeling bad about yourself - or that you are a failure or have let yourself or your family down: not at all 7. Trouble concentrating on things, such as reading the newspaper or watching television: not at all 8. Moving or speaking so slowly that other people could have noticed. Or the opposite - being so fidgety or restless that you have been moving around a lot more than usual: not at all 9. Thoughts that you would be better off or of hurting yourself in some way: not at all Total score: 0 Depression Screening Interpretation: Negative Depression Screening Done: Yes 60414 - PHQ-9 Billing: Yes Source: Developed by Drs. Zay Lopez, Tonya Ornelas, Holger Bourgeois and colleagues, with an educational suellen from [employer]. Thrive Questionnaire Date Thrive assessed: 08/27/24 I am a: Patient What is your living situation today?: I have a steady place to live Within the past 12 months, did the food you bought not last and you didn't have the money to get more?: Never true Within the past 12 months, did you worry whether your food would run out before you got money to buy more?: Never true Do you have trouble paying for medicines?: No Do you have trouble getting transportation to medical appointments?: No Do you have trouble paying your heating and electricity bill?: No Do you have trouble taking care of your child, family member or friend?: No Do you have trouble with day-to-day activities such as bathing, preparing meals, shopping, managing finances, etc.?: No Are you currently unemployed and looking for a job?: No Are you interested in more education?: No Please select the resources that you would like help with: None Currently or been in a relationship where the following occur: No concerns reported THRIVE Score: 0 AUDIT C Alcohol Use Questionnaire (AUDIT-C) 1. How often do you have a drink containing alcohol?: Never 3. How often do you have six or more drinks on one occasion?: Never Total Score: 0 Score Reviewed/Action Taken: Yes KITTY-7 AMB Questionnaire KITTY-7 Date KITTY - 7 assessed: 08/27/24 Feeling nervous, anxious, or on edge: 0 = Not at all Not being able to stop or control worryin = Not at all Worrying too much about different things: 0 = Not at all Trouble relaxin = Not at all Being so restless that it is hard to sit still: 0 = Not at all Becoming easily annoyed or irritable: 0 = Not at all Feeling afraid as if something awful might happen: 0 = Not at all Total KITTY-7 score (0-4 normal; 5-9 mild; 10-14 moderate; 15-21 severe): 0 Source: Developed by Drs. Zay Lopez, Tonya Ornelas, Holger Bourgeois and colleagues, with an educational suellen from [employer]. Review of Systems Const Denies chills, Reports difficulty sleeping (Zolpidem helps), Reports fatigue, Denies fever(s) and Denies headache(s) ENT Denies dysphagia, Denies dizziness, Denies otalgia, Denies headache(s), Denies neck pain, Denies odynophagia and Denies sore throat Card Denies chest pain and Reports dyspnea on exertion (mild) Resp Denies chest congestion, Denies cough and Reports dyspnea on exertion (mild) GI Denies abdominal pain, Reports constipation (chronic athough he reports moving his bowels daily), Denies dysphagia, Denies diarrhea, Denies nausea, Denies odynophagia and Denies vomiting Denies hematuria, Denies difficulty urinating, Denies nocturia and Denies urinary frequency Musc Details: recurrent leg pain/cramps with walking Reports back pain, Reports myalgias (diffuse), Reports arthralgias (left knee - S/P surgery for fracture and dislocation) and Denies neck pain Skin/Breast Denies rash Neuro Denies dizziness and Denies headache(s) Psych Reports anxiety, Denies depression, Reports difficulty concentrating and Denies irritability Endo Reports fatigue Physical exam (Primary Care) Vital Signs: Last Vital Signs Pulse 119 H 08/27/24 13:33 BP 132/86 08/27/24 13:33 Pulse Ox 97 08/27/24 13:33 Oxygen Delivery Method Room Air 08/27/24 13:33 BMI result Body Mass Index 40.6 Tobacco/Smoking Status: Tobacco use Status Tobacco use date assessed 08/27/24 08/27/24 13:35 Patient Tobacco Use Status Current everyday Tobacco 08/27/24 13:35 Tobacco use type Cigarette 08/27/24 13:35 e-Cigarette/Vaping Use Former Use 08/27/24 13:35 PHQ-9: PHQ-9 Score PHQ-9: Total score 0 08/27/24 14:00 Depression Screening Interpretation: Negative Thrive Assessment: Date of Thrive Assessment Date Thrive assessed 08/27/24 08/27/24 13:35 Currently or been in a relationship where the following occur: No concerns reported Const General: no acute distress and alert HENMT Ears: TM's normal bilaterally and EAC's normal Throat: Yes posterior oropharynx normal and Yes tonsils normal (no TP congestion) Neck Neck: Yes supple and No lymphadenopathy Thyroid: Thyroid normal Resp Auscultation: clear to auscultation bilaterally, no rales and no wheezes Cardio Rate: regular rate Rhythm: regular rhythm Heart sounds: no murmurs GI Palpation (GI): Soft to palpation and nontender Auscultation: normal bowel sounds General: Yes no CVA tenderness Back/Spine/Pelvis Back: no CVA tenderness Thoracic/Lumbar Spine: No lumbar spinal tenderness Skin Rashes: no rashes Extrem General: No clubbing, No cyanosis and Yes edema (2+ bipedal edema) Coding Level of Care Code Est Pt Level 4 (59036) Diagnoses Rupture of left patellar tendon, sequela S86.812S Encounter type: sequela Generalized edema R60.1 Edema type: generalized GERD without esophagitis K21.9 Pure hypercholesterolemia E78.00 Type 2 diabetes mellitus with hyperglycemia, without long-term current use of insulin E11.65 Diabetes mellitus type: type 2 Diabetes mellitus exhibits curator insulin use: without senior care use Diabetes mellitus complication status: with hyperglycemia Vitamin D deficiency E55.9 Mild intermittent asthma without complication J45.20 Asthma severity: mild Asthma persistence: intermittent Asthma complication type: uncomplicated Chronic idiopathic constipation K59.04 Midline low back pain without sciatica, unspecified chronicity M54.50 Chronicity: unspecified Back pain laterality: midline Sciatica presence: without sciatica Alcoholism F10.20 Insomnia, unspecified type G47.00 Insomnia type: unspecified Schizoaffective disorder, bipolar type F25.0 Smoker F17.200 Morbid obesity with BMI of 45.0-49.9, adult E66.01; Z68.42 Additional Codes PHQ-9 - 06016 - PHQ-9 Billing: Yes ([id number]) Assessment & Plan Assessment & Plan (1) Rupture of left patellar tendon: Code(s): S86.812A - Strain of other muscle(s) and tendon(s) at lower leg level, left leg, initial encounter Category: Medical Qualifiers: Encounter type: sequela Qualified Code(s): S86.812S - Strain of other muscle(s) and tendon(s) at lower leg level, left leg, sequela Plan: Patient's left knee injury occurred in January 2024 He first underwent left patellar tendon repair on 01/18/2024 but he ruptured the tendon again after removing some of his cast He had a revision surgery done on 01/31/2024 and was at rehab for over a month Patient states that his left knee is still bothering him but the pain now is a lot better than it was a few months ago Follow up with orthopedics as scheduled (2) Edema: Code(s): R60.9 - Edema, unspecified Category: Medical Qualifiers: Edema type: generalized Qualified Code(s): R60.1 - Generalized edema Plan: This is most likely stasis or dependent edema Continue Furosemide 40 mg Q AM PRN (3) GERD without esophagitis: Code(s): K21.9 - Gastro-esophageal reflux disease without esophagitis Category: Medical Plan: He had abdominal US done in December 2023 revealed heterogeneous liver texture with nodular surface raising suspicion for liver parenchymal disease or liver cirrhosis. (+) recanalized umbilical vein raises the possibility of portal hypertension and portosystemic shunting. May consider correlation with cross-sectional imaging CT scan or MRI for further investigation. No ultrasound evidence of gallbladder disease or gallstones and the pancreas is not well visualized and is obscured by bowel gas Dietary restrictions reinforced Continue Omeprazole 40 mg QD Follow up with GI as scheduled (4) Pure hypercholesterolemia: Code(s): E78.00 - Pure hypercholesterolemia, unspecified Category: Medical Plan: Reinforced low cholesterol diet We have been holding off on starting him on cholesterol-lowering medications due to his elevated LFTs Will have patient recheck his labs and fasting lipids ABIGAIL for follow-up (5) Diabetes mellitus: Code(s): E11.9 - Type 2 diabetes mellitus without complications Category: Medical Qualifiers: Diabetes mellitus type: type 2 Diabetes mellitus exhibits curator insulin use: without exhibits curator use Diabetes mellitus complication status: with hyperglycemia Qualified Code(s): E11.65 - Type 2 diabetes mellitus with hyperglycemia Plan: His HgbA1c was at 7.4% when last checked in September 2023 (was at 6.6% back in June 2023) - goal is at least <7.0% Reinforced diabetic diet He was also previously referred for dietary counseling He is currently on Semaglutide 0.5 mg SQ once a week (6) Vitamin D deficiency: Code(s): E55.9 - Vitamin D deficiency, unspecified Category: Medical Plan: Continue Vitamin D3 1000 units QD (7) Asthma: Code(s): J45.909 - Unspecified asthma, uncomplicated Category: Medical Qualifiers: Asthma severity: mild Asthma persistence: intermittent Asthma complication type: uncomplicated Qualified Code(s): J45.20 - Mild intermittent asthma, uncomplicated Plan: Continue Albuterol HFA 1 to 2 inhalations Q 6 hours as needed (8) Chronic idiopathic constipation: Code(s): K59.04 - Chronic idiopathic constipation Category: Medical Plan: Patient states that this is currently well-controlled Reinforced increased oral fluids and dietary fiber Continue Linzess 145 mcg Q AM, Metamucil 0.4 gm BID PRN and MagOx 500 mg BID Follow up with GI as scheduled (9) Low back pain: Code(s): M54.50 - Low back pain, unspecified Category: Medical Qualifiers: Chronicity: unspecified Back pain laterality: midline Sciatica presence: without sciatica Qualified Code(s): M54.50 - Low back pain, unspecified Plan: Lumbar spine x-rays done back in April 2022 came out unremarkable Reinforced activity and weight-lifting restrictions Continue Tizanidine 4 mg TID PRN (10) Alcoholism: Code(s): F10.20 - Alcohol dependence, uncomplicated Category: Medical Plan: Patient is currently still taking about 10 to 20 nips a day - he is again encouraged to try to quit drinking Continue Campral 333 mg BID Continue Thiamine 100 mg QD as well as his Vitamin B complex and Vitamin C daily (11) Insomnia: Code(s): G47.00 - Insomnia, unspecified Category: Medical Qualifiers: Insomnia type: unspecified Qualified Code(s): G47.00 - Insomnia, unspecified Plan: Sleep hygiene reinforced Continue Trazodone 50 mg Q HS (12) Schizoaffective disorder, bipolar type: Code(s): F25.0 - Schizoaffective disorder, bipolar type Category: Medical Plan: He was on Aripiprazole ER 400 mg IM Q 30 days and [place] 300 mg QD and 600 mg Q HS previously but states that he stopped taking these on his own and states that his psychiatrist was agreeable to this He was also on Adderall XR 35 mg total daily dose (30 mg + 5 mg) QD instead previously but now appears to be only on Lorazepam 1 mg QD PRN Follow up with psychiatry as scheduled (sees Johnny Macias) (13) Smoker: Code(s): F17.200 - Nicotine dependence, unspecified, uncomplicated Category: Social Hx Plan: Patient is counseled again on smoking cessation Per request, Rx for nicotine patches sent in to his pharmacy of choice (14) Morbid obesity with BMI of 45.0-49.9, adult: Code(s): E66.01 - Morbid (severe) obesity due to excess calories; Z68.42 - Body mass index [BMI] 45.0-49.9, adult Category: Medical Plan: Reinforced diet/exercise as tolerated/lose weight He was previously referred to weight management but states that he has not yet been contacted regarding his referral but as he has been losing weight lately (likely due to his Semaglutide), he is happy to continue as is for now Plan Follow up in 4 months Orders: Orders AMB Hemoglobin A1c 08/27/24 Z13.9 - Encounter for screening, unspecified Medications: New nicotine 1 patch transdermal Q24H 28 ea 3RF 28 days F17.200 - Nicotine dependence, unspecified, uncomplicated
[2024-08-27 13:33] VITALS: BP 132/86; PULSE 119; O2SAT 97; BMI 40.6
--- OUTSIDE RECORDS SUMMARY | 2024-08-27 14:51 | XMS_ITS | Clinical Summary ---
Author Organization [facility] Address [address] [place] [address] Phone Care Team Providers Care Dye Reel Operator Name Role Phone Livan Rosales MD Primary Care Provider Allergies Active Allergy Reactions Criticality Noted Date Comments Cat Dander 01/27/2024 itchy eyes, throat irritation, runny nose Pineapple 01/27/2024 Medications gabapentin (NEURONTIN) 100 mg capsule Take 1 capsule (100 mg total) by mouth 2 (two) times a day. 02/06/2024 Active amphetamine-dex troamphetamine (ADDERALL) 5 mg tablet [...] bedtime Max Daily Amount: 5 mg 05/09/2024 Active sertraline (ZOLOFT) 25 mg tablet Take 1 tablet (25 mg total) by mouth 1 (one) time each day. Active Ozempic 1 mg/dose (4 mg/3 mL) injection pen Inject 1 mg under the skin every 7 (seven) days. 04/23/2024 Active oxyCODONE (ROXICODONE) 5 mg immediate release tabletIndicatio ns:Tendon rupture, traumatic, patella, left, sequela Take 1-2 tablets (5-10 mg total) by mouth every 6 (six) hours if needed for severe pain. Max Daily Amount: 40 mg 20 tablet 05/15/2024 Active aspirin 325 mg EC tablet Take 1 tablet (325 mg total) by mouth 1 (one) time each day. 30 tablet 05/15/2024 Active acetaminophen (TYLENOL) 500 mg tablet Take 2 tablets (1,000 mg total) by mouth every 8 (eight) hours if needed for moderate pain. Do not exceed 3 grams of Tylenol per day. You can take 1-2 tabs every 8 hours 30 tablet 05/15/2024 Active Active Problems Problem Noted Date Diagnosed Date Complication of procedure, initial encounter 02/2024 Tendon rupture, traumatic, patella, left, sequel a 05/14/2024 Patellar tendon avulsion, left, sequela 01/30/20 Resolved Problems Problem Noted Date Diagnosed Date Resolved Date Patellar tendon rupture, lef t, subsequent encounter 01/29/2024 02/06/2024 Rupture of left patellar [place], subsequent encounter 01/27/2024 02/06/2024 Patellar fracture 01/17/2024 01/19/2024 Surgical History Surgery Date Site/Laterality Comments PATELLAR [...] for your loved ones. For example, children's nursery assistant or elderly care for an older adult? [...] 01/17/2024 7:59 AM EST Sexual Orientation Straight 06/27/2024 8: 44 AM EDT Obstetrics History Last Filed Vital Signs Vital Sign Reading Time Taken Comments Blood Pressure 129/78 05/16/2024 3:09 PM EDT Pulse 89 05/16/2024 3:09 PM EDT Temperature 36 C (96.8 F) 05/16/2024 3:09 PM EDT Respiratory Rate 18 [...] 5 Years) and At-Risk Patients (6 to 49 Years) (2 of 2 - PCV) 07/16/2015 07/15/2014, 07/23/2010 Cholesterol Screening (Lipid Panel) 01/16/2022 Depression Screening 01/16/2022 HIV Screening 01/16/2022 Hepatitis C Screening 01/16/2022 Medicare Annual Wellness Visit 01/16/2022 COVID-19 Vaccine ( - season) 2023 DTaP,Tdap,and Td Vaccines (8 - Td or Tdap) 07/15/2024 07/15/2014, 08/06/2008, 06/30/1999, Additional history exists Influenza Vaccine (#1) 2024 , 12/21/2017, 10/31/2016, Additional history exists Social Influencers of Health Screening 01/27/2025 01/28/2024 HIB Vaccines Completed 05/17/1989 IPV Vaccines Completed 04/28/1993, 05/1989, 09/21/1988, Additional history exists Varicella Vaccines Completed 04/12/2005, 07/12/2002 MMR Vaccines Completed 05/16/2005, 06/1991, 05/22/1988 Hepatitis A Vaccines Aged Out 07/15/2014, 12/17/19 11 No longer eligible based on patient's age to complete this topic Hepatitis B Vaccines Completed 07/15/2014, 02/24/2014, 01/20/2014, Additional history exists HPV Vaccines Aged Out No longer eligi ble based on patient's age to complete this topic Meningococcal ACWY Vaccine Aged Out N o longer eligible based on patient's age to complete this topic Meningococcal B Vaccine Aged Out No l onger eligible based on patient's age to complete this topic RSV Immunization Patients Under 20 months Aged Out No longer eligible based on patient's age to complete this topic Medical Devices Implanted Type Area Clinical Informatics Educator Device Identifier Shelf Expiration Date Model / Serial / Lot [place] 4h Arbor Rn Informatics Fixation - Sn/A - [id number] Implanted:Qty: 10 on 01/31/2024 by Leann Esquivel MD at [facility] Internal and External Fixation Left: Leg [facility] 1173.0001 / N/A / N/A Bar Carbn Fiber [id number] Abror Rn Informatics Fixation - Sn/A - [id number] Implanted:Qty: 4 on 01/31/2024 by Leann Esquivel MD at [facility] Internal and External Fixation Left: Femur [facility] 5173.1135 / N/A / N/A Pin Schanz [id number] Slf Drill 40mm Cortical Thrd Ss Arbor - Sn/A - [id number] Implanted:Qty: 2 on 01/31/2024 by Leann Esquivel MD at [facility] Internal and External Fixation Left: Femur [facility] [id number] / N/A / N/A Pin Schanz [id number] Slf Drill 40mm Cortical Thrd Ss Arbor - Sn/A - [id number] Implanted:Qty: 2 on 01/31/2024 by Leann Esquivel MD at [facility] Internal and External Fixation Left: Leg [facility] [id number] / N/A / N/A Insurance [facility] MEDIC[facility] Member Subscriber Plan / Payer (Ef fective 2021-Present) Name:Danielle Villar Relation to Subscriber:Self Name:Danielle Villar Payer ID:[id number] Group ID:[id number] Type:Not on file Address: [place] [address] [address] [id number] Advance Directives Documents on File Type Date Recorded Patient Disability Advocate Expl anation Advance Directives and Livin g [...] currently active code status orders. Care Teams Dye Reel Operator Relationship Specialty Start Date End Date Livan Rosales MD [address] [place] [address] Dr [address] [place] PCP - General Internal Medicine 01/17/24
--- OUTSIDE RECORDS SUMMARY | 2024-08-27 14:51 | XMS_ITS | Data Portability ---
Author Organization [facility], Main Office Address [address] [place] [address] Care Team Providers Care Military Communications Specialist Name Role Phone [facility] OTHER Assessment No assessment recorded. Plan [...] Details Recorded Time Left patellar tendon rupture [id number] 9100 Active [address] , [address], [place], [address], [facility] 5 05:39:03 Acute pain 149922594 Active [address] , [address], [place], [address], [facility] [employer] [facility] 5 05:39:18 Fracture of upper end of fibula 48817921 Active [address] , [address], [place], [address], [facility] [employer] [facility] 5 05:40:07 Anxiety 54858492 Active 20[address], [address], [place], [address], [facility] [employer] [facility] 5 05:40:50 Attention deficit hyperactivi ty disorder 691443268 Active [address] [facility], [address], [place], [address], [facility] [employer] [facility] 5 05:40:57 Tachycardia 4591255 Active [address] [facility], [address], [place], [address], [facility] [employer] 5 05:41:05 Asthenia 82582986 Active [address] [facility], [address], [place], [address], [facility] [employer] 5 05:42:19 Obstructive sleep apnea syndrome 17060889 Active [address] [facility], [address], [place], [address], [facility] [employer] 5 05:42:29 Problem Notes None recorded. Medical Equipment None Reported. Vitals Date Recorded Heart rate Respiratory rate Body temperature Oxygen saturation Oxygen saturation in Arterial blood by Pulse oximetry Systolic And Diastolic Provider Name and Address Organization Details Last Updated DateTime 5 100 /min 18 /min 97.9 [degF] 94 % 94 % 140/71 mm[Hg] GENET WHITE NP [address] [facility] [address], [address], [place], [address], [place] [employer] 5 14:20:45 Social History None recorded. Functional Status None recorded. Mental Status None recorded. Family History Nothing Reported. Medical History No medical history recorded. Gynecological HistoryNo gynecological history recorded. Obstetrics History GPAL:G 0 P 0 0 0 0 Past Encounters Encounter ID Performer Location Encounter Start Date Encounter Closed Date Diagnosis/Indication Diagnosis SNOMED-CT Code Diagnosis ICD10 Code Diagnosis Note [id number] [address] [place] [address] 02/20/2024 11:22:09 02/21/2024 12:21:51 Fracture of upper end of fibula 44243122 S89.D Left patellar tendon rupture requiring revision and placement of external fixator by Dr. Esquivel.Nonw eightbeari ng left lower extremityc ontinue to use walker or crutches for ambulation .continue oxycodone 5-10 mg q4h prncontinu e gabapentin 200 mg bidasa 81 mg bid x 3 moscontinu e PT Ara/up with orthopedic surgery as planned Left bowser lar tendon rupture [id number] 0017594 S76.112D see above Acute pain 077343833 R52 see pain med plan abovemonit or painmonito r utilizatio n of narcs and wean as tolerated Asthenia 45022843 R53.1 continue PT OTindepend ent at baseline Tachycardia 2023093 R00. 0 tachycardi c 150s with uahwrry116 -130s at restdrinki ng a monster and on adderall (see HPI)check HR prior to adderall administra tionwill obtain an ECG to make sure hes not in afibmonito r vitals qshift x 3 days Obstructiv e sleep apnea syndrome 04344685 G47.33 not on CPAPshould have outpatient sleep study Attention deficit hyperactivity disorder 368406554 F90.9 continue adderall 35 mg dailymonit or HR prior to giving med Anxiety 24582401 F41.9 continue sertraline 50 mg qhscontinu e ambien 5 mg qhs prn for sleeprefus ed psych eval with health drive [id number] GENET WHITE NP [facility] [address] [place] [address] 02/26/2024 14:20:03 02/28/2024 08:26:45 Fracture of upper end of fibula 07047670 S89.202D Left patellar tendon rupture requiring revision [...] go home. Left bowser lar tendon rupture [id number] 7813383 S76.112D see above Acute pain 656104911 R52 Pain controlled - continue APAP, gabapentin , and oxycodone. monitor pain, adjust meds as needed.mon itor utilizatio n of narcs and wean as tolerated Asthenia 67991033 R53.1 continue PT OTindepend ent at baseline Tachycardia 1288198 R00. 0 Monitor HR, check prior to adderall use daily.Avoi d caffeine - encouraged pt. to drink decaf coffee and avoid other drinks with high caffeine levels Check with nsg. re: EKG results Obstructiv e sleep apnea syndrome 30842206 G47.33 not on CPAPshould have outpatient sleep study Attention deficit hyperactivity disorder 921604162 F90.9 continue adderall 35 mg dailymonit or HR prior to giving med Anxiety 78763678 F41.9 continue sertraline 50 mg qhscontinu e ambien 5 mg qhs prn for sleeprefus ed psych eval with [facility] [address] [id number] JASPAL BENDER, RACKING MACHINE OPERATOR-C [facility] [address] [place] [address] 03/05/2024 08:14:56 03/06/2024 15:48:02 Fracture of upper end of fibula 82450927 S89.D Left patellar tendon rupture requiring revision [...] surgery fe Left bowser lar tendon rupture [id number] 3869835 S76.112D see above Asthenia 60914378 R53.1 returning home tomorrowin dependent at baselineus ing crutches and cane to ambulateho me PT OT set up Tachycardia 3713369 R00. 0 Monitor HR while on adderallAv oid caffeine - encouraged pt. to drink decaf coffee and avoid other drinks with high caffeine levels f/up with pcp Obstructiv e sleep apnea syndrome 65095155 G47.33 not on CPAPshould have outpatient sleep study Attention deficit hyperactivity disorder 331033826 F90.9 continue adderall 35 mg dailymonit or HR prior to taking medf/up with pcp Anxiety 52099723 F41.9 continue sertraline 50 mg qhscontinu e ambien 5 mg qhs prn for sleeprefus ed psych eval with health drive while heref/up with pcp Health Concerns Section Related Observation LastModified by Organization Detai ls LastModified Time None Recorded Concern Status LastModified by Organization Details LastModified Time None Recorded Advance Directives Directive None Recorded Payers Insurance Date Sequence Insurance Name Policy Number Policy Steve Covered Member ID Steve Member ID Guarantor Name 03/05/2024 1 [facility] - DOS ON OR AFTER 2022 - MEDICARE ADVANTAGE [place] (MEDICARE REPLACEMENT/ADV ANTAGE - PPO) Danielle Villar [id number] Danielle Villar Notes Date Note Type Note Provider Name and Address Organization Details Recorded Time 02/20/2024 text/html Pt is a 38-year- old male being seen today for a transfer of care. Pt has a recent fall with left patellar tendon rupture s/p repair on 01/18/2024. Once stable he was transferred to [place] to complete rehab. He was seen today [...] have pain. PMH obesity, OSMAR, anxiety JASPAL BENDER, RACKING MACHINE OPERATOR-C [address] [facility] [facility], [address], [place], [address], [facility] [employer] [facility] 02/21/2024 06:04:41 02/26/2024 text/html [facility]le is [facility]. He is a [...] obesity, OSMAR, anxiety GENET WHITE NP [address] [facility], [address], [place], [address], [employer] [facility] 02/26/2024 14:45:59 03/05/2024 text/html Pt is a 38-year- old male being seen today for a discharge summary visit. Pt has a recent fall with left patellar tendon rupture s/p repair on 01/18/2024. Once stable he was transferred to [place] to complete rehab. Patient is being discharge [...] PCP follow up. PMH obesity, OSMAR, anxiety MONIKA ROEC [address] [facility], [address], [place], [address], [employer] [facility] 03/05/2024 09:04:12 OBGyn Episode No OBEpisode recorded.
== END 2024-08-27 14:06 | disposition home or self-care (01) ==
LOC: HO.HMCH 13:30
PROVIDERS: PCP Internal Medicine; Visit Provider Internal Medicine
DX: E11.65 Type 2 diabetes mellitus with hyperglycemia (principal); F10.20 Alcohol dependence, uncomplicated; E66.01 Morbid (severe) obesity due to excess calories; Z68.42 Body mass index [BMI] 45.0-49.9, adult; F25.0 Schizoaffective disorder, bipolar type; S86.812S Strain of other muscle(s) and tendon(s) at lower leg level, left leg, sequela; R60.1 Generalized edema; K21.9 Gastro-esophageal reflux disease without esophagitis; E78.00 Pure hypercholesterolemia, unspecified; E55.9 Vitamin D deficiency, unspecified; J45.20 Mild intermittent asthma, uncomplicated; K59.04 Chronic idiopathic constipation

== ENCOUNTER → 2024-08-27 13:29 | Outpatient (BNVA) | payer OTHER, SELFPAY | PROVIDERS: PCP Internal Medicine; Visit Provider Internal Medicine | DX: K21.9 Gastro-esophageal reflux disease without esophagitis (principal); R60.1 Generalized edema; E78.00 Pure hypercholesterolemia, unspecified; E11.65 Type 2 diabetes mellitus with hyperglycemia; E55.9 Vitamin D deficiency, unspecified; J45.20 Mild intermittent asthma, uncomplicated; K59.04 Chronic idiopathic constipation; M54.50 Low back pain, unspecified; F10.20 Alcohol dependence, uncomplicated; G47.00 Insomnia, unspecified; F25.0 Schizoaffective disorder, bipolar type; F17.210 Nicotine dependence, cigarettes, uncomplicated; S86.812S Strain of other muscle(s) and tendon(s) at lower leg level, left leg, sequela; E66.01 Morbid (severe) obesity due to excess calories; X58.XXXS Exposure to other specified factors, sequela; Z68.42 Body mass index [BMI] 45.0-49.9, adult | CPT/HCPCS: 96127; 99212 ==

== ENCOUNTER 2024-09-20 08:56 | Outpatient (REF) | payer OTHER, SELFPAY ==
--- OUTSIDE RECORDS SUMMARY | 2024-09-20 09:08 | XMS_ITS | Clinical Summary ---
Author Organization [facility] Address [address] [place] [address] Phone Care Team Providers Care Transmission Inspector Name Role Phone Livan Rosales MD Primary Care Provider [phone] Allergies Active Allergy Reactions Criticality Noted Date [...] care for your loved ones. For example, childcare center director or elderly care for an older adult? [...] 07/15/2014, 07/23/2010 Cholesterol Screening (Lipid Panel) 01/16/2022 HIV Screening 01/16/2022 Hepatitis C Screening 01/16/2022 Medicare Annual Wellness Visit 01/16/2022 COVID-19 Vaccine ( season) 2023 Depression Screening 02/14/2024 DTaP,Tdap,and Td Vaccines (8 - Td or [...] this topic Medical Devices Implanted Type Area Spring Upholsterer Device Identifier Shelf Expiration Date Model / Serial / Lot Clamp Manteca 4h Arbor Teacher Instrumental Fixation - Sn/A - [id number] Implanted:Qty: 10 on 01/31/2024 by Leann Esquivel MD at [facility] Internal and External Fixation Left: Leg [facility] 1173.0001 / N/A / N/A Bar Carbn Fiber [id number] Abror Teacher Instrumental Fixation - Sn/A - [id number] Implanted:Qty: 4 on 01/31/2024 by Leann Esquivel MD at [facility] Internal and External Fixation Left: Femur [facility] 5173.1135 / N/A / N/A Pin Schanz [id number] Slf Drill 40mm Cortical Thrd Ss Arbor - Sn/A - [id number] Implanted:Qty: 2 on 01/31/2024 by Leann Esquivel MD at [facility] Internal and External Fixation Left: Femur [facility] 2173.6404 / N/A / N/A Pin Schanz [id number] Slf Drill 40mm Cortical Thrd Ss Arbor - Sn/A - [id number] Implanted:Qty: 2 on 01/31/2024 by Leann Esquivel MD at [facility] Internal and External Fixation Left: Leg [facility] 2173.9405 / N/A / N/A Insurance [facility] MEDICARE Member Subscriber Plan / Payer (Ef fective 2021-Present) Name:Danielle Villar Relation to Subscriber:Self Name:Danielle Villar Payer ID:[id number] Group ID:[id number] Type:Not on file Address: [place] [address] [address] [phone] Advance Directives Documents on File Type Date Recorded Patient Mental Health Associate Expl anation Advance Directives and Livin g [...] currently active code status orders. Care Teams Transmission Inspector Relationship Specialty Start Date End Date Livan Rosales MD [address] [place] [address] Dr [address] [facility] PCP - General Internal Medicine 01/17/24
[2024-09-20 09:11] LABS: MANUAL DIFF FLAG NO
[2024-09-20 09:43] LABS: Hematocrit 41.0 % (42.0-52.0); Hemoglobin 13.6 g/dl (14.0-18.0); Imm Gran Abs Auto 0.01 X10*3/uL (0.00-0.03); Imm Gran Pct Auto 0.2 % (0.0-0.4); Lymphocytes Absolute Auto 2.4 X10*3/uL (1.2-4.9); Mean Corpuscular HGB Conc 33.2 g/dl (31.0-36.0); Mean Corpuscular Hemoglobin 26.0 pg (27.0-33.0); Mean Corpuscular Volume 78.4 fL (80.0-98.0); NRBC Abs Auto 0.000 X10*3/uL (0.0-0.012); NRBC Pct Auto 0.0 /100WBC (0.0-0.2); Platelet Count 337 X10*3/uL (160-400); Red Blood Count 5.23 X10*6/uL (4.60-5.80); White Blood Count 5.4 X10*3/uL (4.8-10.8)
[2024-09-20 09:49] LABS: Hemoglobin A1C 133.3661 umol/L; Total Hemoglobin (HGBA1C) 3644.3939 umol/L
[2024-09-20 09:53] LABS: Appearance Urine Clear; Glucose Urine UA Negative (Negative); PH 6.5 (5.0-9.0); Specific Gravity - Urine 1.025 (1.005-1.025)
[2024-09-20 10:37] LABS: Alanine Aminotransferase 35 U/L (0-40); Albumin Level 3.9 g/dL (3.5-5.0); Alkaline Phosphatase 78 U/L (39-117); Anion Gap 11 (12-20); Aspartate Amino Transferase 28 U/L (5-37); Blood Urea Nitrogen 11 mg/dL (9-16); Calcium 8.5 mg/dL (8.4-10.2); Carbon Dioxide 26 mmol/L (22-29); Chloride 111 mmol/L (96-108); Cholesterol 203 mg/dL (<200); Estimated Glomerular Filt Rate > 60; HDL Cholesterol 67 mg/dL (>40); Potassium 3.6 mmol/L (3.3-5.1); Sodium 144 mmol/L (135-145); Total Protein 7.1 g/dL (6.5-8.0); Triglycerides 86 mg/dL (<150)
[2024-09-20 10:54] LABS: Folate 7.3 ng/mL (> or = 4.0); Vitamin B12 412 pg/mL (200-900)
[2024-09-20 11:11] LABS: Microalbum/Creatinine Ratio Ur 3.4 ug/mg cr (<30)
[2024-09-25 17:08] LABS: FIB-ALT 26 U/L (9-46); FIB-Alpha-2-Macroglobulin 120 mg/dL (106-279); FIB-Apolipoprotein A1 200 mg/dL (94-176); FIB-GGT 33 U/L (3-90); FIB-Haptoglobin 201 mg/dL (43-212); FIB-Total Bilirubin 0.3 mg/dL (0.2-1.2); Liver Fibrosis Score 0.02; Liver Fibrosis Stage F0; Nec Inflam Act Grade A0; Nec Inflam Act Score 0.08
== END 2024-09-20 08:57 | disposition home or self-care (01) ==
LOC: HO.LAB 08:56
PROVIDERS: PCP Internal Medicine; Visit Provider Internal Medicine
DX: E11.9 Type 2 diabetes mellitus without complications (principal); E55.9 Vitamin D deficiency, unspecified; E78.00 Pure hypercholesterolemia, unspecified; E53.8 Deficiency of other specified B group vitamins; D64.9 Anemia, unspecified; R79.89 Other specified abnormal findings of blood chemistry; R30.0 Dysuria
CPT/HCPCS: 36415; 80053; 80061; 81003; 81596; 82043; 82306; 82570; 82607; 82746; 83036; 84443; 85025

== ENCOUNTER 2024-11-19 15:24 | Outpatient (AMB) | payer OTHER, SELFPAY ==
--- NOTE | 2024-11-19 16:02 | MHC.PC.OV ---
Vital Signs 11/19/24 16:03 Height 5 ft 11 in Weight 335 lb 2 oz BMI 46.7 BP 130/90 H Blood Pressure Location Rt brachial Position Sitting Pulse 112 H Pulse Source Pulse Oximeter Temp 97.4 F Temp Source Temporal Artery Scan Pulse Oximetry (%) 96 Oxygen Delivery Method Room Air Intake Visit Reasons: left leg swelling Entry Level Programmer Required: No Baker Doughnut: Not Required per policy Accompanied by: Self / Same As Patient Allergies cat dander Allergy (Severe, Verified 11/27/24 06:05) Itchy Eyes No Known Drug Allergies Allergy (Severe, Verified 11/27/24 06:05) none Seasonal Allergies Allergy (Intermediate, Verified 11/27/24 06:05) snee pineapple Allergy (Verified 11/27/24 06:05) Itching aripiprazole (From [facility]) Adverse Reaction (Intermediate, Verified 11/27/24 06:05) Swelling of leg Medication List - Last Reconciled 11/27/24 by Livan Rosales MD albuterol sulfate 90 mcg/actuation (Ventolin HFA) 2 puffs inhalation RQ4H PRN 30 days azithromycin take 500 mg today (day 1), then 250 mg for 4 days (days 2-5) PO B-complex with vitamin C 1 cap PO DAILY 90 days bumetanide 1 mg PO DAILY cholecalciferol (vitamin D3) 25 mcg PO DAILY 90 days dextroamphetamine-amphetamine 15 mg (Adderall) 30 mg PO DAILY dextroamphetamine-amphetamine 5 mg (Adderall) 5 mg PO DAILY furosemide 40 mg PO DAILY [hand held shower head As directed] [Hip Kit with long handle As directed] ibuprofen 600 mg PO Q8H PRN 7 days nicotine 1 patch transdermal Q24H 28 days nicotine 1 patch transdermal DAILY 7 days nicotine 1 patch transdermal Q24H 28 days semaglutide 2 mg (0.75 mL) subcut QWEEK 4 weeks sertraline 25 mg PO DAILY [Shoe horn As directed] [shower chair As directed] [Sock aid As directed] zolpidem (Ambien) 5 mg PO BEDTIME Tobacco use date assessed: 11/19/24 Dental Screening Dental Screen Date: 11/19/24 HPI left leg swelling HPI Details Patient comes in today complaining of increased swelling over his left leg for the past few days States that the Furosemide that he is currently on does not seem to be helping with his swelling at this time States that he needs a few other Rx refilled He would also like to go back on nicotine patches to help him quit smoking He was taking Semaglutide to help with weight loss but states that he has not been able to get his prescription refilled for the past couple of months now and he has gained all or most of the weight that he lost previously back as a result Adds that he has been experiencing (+) symptoms of cough and congestion for over a week now States that his throat feels sore at times and he has been coughing up some thick whitish to yellowish phlegm recently He denies any headaches or dizziness; denies any fever Denies any exertional chest pains or increased shortness of breath No nausea/vomiting, no abdominal pain No change in bowel habits noted [facility] Medical History Rupture of left patellar tendon GERD without esophagitis Schizoaffective disorder Dyspnea Vasectomy evaluation Chronic constipation Obesity (BMI 30-39.9) Morbid obesity with BMI of 40.0-44.9, adult Abdominal pain Abdominal swelling Vasectomy evaluation Schizoaffective disorder, bipolar type Smoker Vitamin D deficiency Pure hypercholesterolemia Elevated LFTs Alcoholism Asthma Surgical History History of surgery on lower extremity No significant past surgical history Family History Mother No problems noted. Father No problems noted. Social History Household Members: None Household Members Other:: none Housing: Apartment Do you presently have visiting nurse or other home services: No Alcohol intake: current Alcohol intake frequency: 3 or more drinks per day Alcohol type: beer and hard liquor Patient Tobacco Use Status: Current everyday Tobacco user Tobacco use type: Cigarette Cigarette Packs Per Day: 0.5 Cigarettes Per Day: 10 e-Cigarette/Vaping Use: Former Use Second Hand Smoke Exposure: Yes Substance Use Type: Marijuana service: No Current occupational status: disabled Sexual orientation: Don't Know Cognitive needs: No Hearing needs: No Vision needs: No Questionnaire Thrive Questionnaire Date Thrive assessed: 08/27/24 I am a: Patient What is your living situation today?: I have a steady place to live Within the past 12 months, did the food you bought not last and you didn't have the money to get more?: Never true Within the past 12 months, did you worry whether your food would run out before you got money to buy more?: Never true Do you have trouble paying for medicines?: No Do you have trouble getting transportation to medical appointments?: No Do you have trouble paying your heating and electricity bill?: No Do you have trouble taking care of your child, family member or friend?: No Do you have trouble with day-to-day activities such as bathing, preparing meals, shopping, managing finances, etc.?: No Are you currently unemployed and looking for a job?: No Are you interested in more education?: No Please select the resources that you would like help with: None Currently or been in a relationship where the following occur: No concerns reported THRIVE Score: 0 AUDIT C Alcohol Use Questionnaire (AUDIT-C) 1. How often do you have a drink containing alcohol?: Never 3. How often do you have six or more drinks on one occasion?: Never Total Score: 0 Score Reviewed/Action Taken: Yes KITTY-7 AMB Questionnaire KITTY-7 Date KITTY - 7 assessed: 08/27/24 Source: Developed by Drs. Zay Lopez, Tonya Ornelas, Holger Bourgeois and colleagues, with an educational suellen from [employer]. Review of Systems Const Denies chills, Reports difficulty sleeping (Zolpidem helps), Reports fatigue, Denies fever(s) and Denies headache(s) ENT Denies dysphagia, Denies dizziness, Denies otalgia, Denies headache(s), Denies neck pain, Denies odynophagia and Denies sore throat Card Denies chest pain and Reports dyspnea on exertion (mild) Resp Reports chest congestion (mild), Reports cough (on and off), Reports dyspnea on exertion (mild) and Denies wheezing GI Denies abdominal pain, Reports constipation (chronic athough he reports moving his bowels daily), Denies dysphagia, Denies diarrhea, Denies nausea, Denies odynophagia and Denies vomiting Denies hematuria, Denies difficulty urinating, Denies nocturia and Denies urinary frequency Musc Reports back pain, Reports myalgias (diffuse), Reports arthralgias (left knee - S/P surgery for fracture and dislocation) and Denies neck pain Skin/Breast Denies rash Neuro Denies dizziness and Denies headache(s) Psych Reports anxiety, Denies depression, Reports difficulty concentrating and Denies irritability Endo Reports fatigue Leonel/Lymph Details: increased swelling of the left leg Aller/Immun Denies wheezing Physical exam (Primary Care) Vital Signs: Last Vital Signs Temp 97.4 F 11/19/24 16:03 Pulse 112 H 11/19/24 16:03 BP 130/90 H 11/19/24 16:03 Pulse Ox 96 11/19/24 16:03 Oxygen Delivery Method Room Air 11/19/24 16:03 BMI result Body Mass Index 46.7 Tobacco/Smoking Status: Tobacco use Status Tobacco use date assessed 11/19/24 11/19/24 16:05 Patient Tobacco Use Status Current everyday Tobacco 11/19/24 16:02 Tobacco use type Cigarette 11/19/24 16:02 e-Cigarette/Vaping Use Former Use 11/19/24 16:02 Thrive Assessment: Date of Thrive Assessment Date Thrive assessed 08/27/24 11/19/24 16:02 Currently or been in a relationship where the following occur: No concerns reported Const General: no acute distress and alert HENMT Ears: TM's normal bilaterally and EAC's normal Throat: Yes posterior oropharynx normal and Yes tonsils normal (no TP congestion) Neck Neck: Yes supple and No lymphadenopathy Thyroid: Thyroid normal Resp Auscultation: no crackles, no rales, rhonchi (occasional ) throughout and no wheezes Cardio Rate: regular rate Rhythm: regular rhythm Heart sounds: no murmurs GI Palpation (GI): Soft to palpation and nontender Auscultation: normal bowel sounds General: Yes no CVA tenderness Back/Spine/Pelvis Back: no CVA tenderness Thoracic/Lumbar Spine: No lumbar spinal tenderness Skin Rashes: no rashes Extrem General: No clubbing, No cyanosis and Yes edema (increased over the left lower extremity) Coding Level of Care Code Est Pt Level 4 (62816) Diagnoses Upper respiratory tract infection, unspecified type J06.9 URI type: unspecified URI Mild intermittent asthma without complication J45.20 Asthma severity: mild Asthma persistence: intermittent Asthma complication type: uncomplicated Generalized edema R60.1 Edema type: generalized Rupture of left patellar tendon, sequela S86.812S Encounter type: sequela GERD without esophagitis K21.9 Pure hypercholesterolemia E78.00 Type 2 diabetes mellitus with hyperglycemia, without long-term current use of insulin E11.65 Diabetes mellitus type: type 2 Diabetes mellitus termite control technician insulin use: without termite control technician use Diabetes mellitus complication status: with hyperglycemia Vitamin D deficiency E55.9 Chronic idiopathic constipation K59.04 Midline low back pain without sciatica, unspecified chronicity M54.50 Chronicity: unspecified Back pain laterality: midline Sciatica presence: without sciatica Alcoholism F10.20 Insomnia, unspecified type G47.00 Insomnia type: unspecified Schizoaffective disorder, bipolar type F25.0 Smoker F17.200 Morbid obesity with BMI of 45.0-49.9, adult E66.01; Z68.42 Assessment & Plan Assessment & Plan (1) Upper respiratory tract infection: Code(s): J06.9 - Acute upper respiratory infection, unspecified Category: Medical Qualifiers: URI type: unspecified URI Qualified Code(s): J06.9 - Acute upper respiratory infection, unspecified Plan: Will go ahead and start patient empirically on Azithromycin QD x 5 days (2) Asthma: Code(s): J45.909 - Unspecified asthma, uncomplicated Category: Medical Qualifiers: Asthma severity: mild Asthma persistence: intermittent Asthma complication type: uncomplicated Qualified Code(s): J45.20 - Mild intermittent asthma, uncomplicated Plan: Appears controlled Continue Albuterol HFA 1 to 2 inhalations Q 6 hours as needed - Rx refilled (3) Edema: Code(s): R60.9 - Edema, unspecified Category: Medical Qualifiers: Edema type: generalized Qualified Code(s): R60.1 - Generalized edema Plan: Especially over the left lower extremity - this is most likely stasis or dependent edema and does not appear to be due to DVT As Furosemide 40 mg Q AM PRN does not appear to be helping with his current edema, we will hold Furosemide at this time and start patient instead on Bumetanide 1 mg Q AM Patient is advised to continue to keep his left lower extremity elevated as often as he can to help manage his edema (4) Rupture of left patellar tendon: Code(s): S86.812A - Strain of other muscle(s) and tendon(s) at lower leg level, left leg, initial encounter Category: Medical Qualifiers: Encounter type: sequela Qualified Code(s): S86.812S - Strain of other muscle(s) and tendon(s) at lower leg level, left leg, sequela Plan: Patient's left knee injury occurred in January 2024 He first underwent left patellar tendon repair on 01/18/2024 but he ruptured the tendon again after removing some of his cast He had a revision surgery done on 01/31/2024 and was at rehab for over a month Patient states that his left knee is still bothering him but the pain now is a lot better than it was a few months ago Follow up with orthopedics as scheduled (5) GERD without esophagitis: Code(s): K21.9 - Gastro-esophageal reflux disease without esophagitis Category: Medical Plan: He had abdominal US done in December 2023 that revealed a heterogeneous liver texture with nodular surface raising suspicion for liver parenchymal disease or liver cirrhosis. (+) recanalized umbilical vein raises the possibility of portal hypertension and portosystemic shunting. May consider correlation with cross-sectional imaging CT scan or MRI for further investigation. No ultrasound evidence of gallbladder disease or gallstones and the pancreas is not well visualized and is obscured by bowel gas Dietary restrictions reinforced Continue Omeprazole 40 mg QD Follow up with GI as scheduled (6) Pure hypercholesterolemia: Code(s): E78.00 - Pure hypercholesterolemia, unspecified Category: Medical Plan: Reinforced low cholesterol diet We have been holding off on starting him on cholesterol-lowering medications due to his elevated LFTs Will have patient recheck his labs and fasting lipids before his appointment next month for follow-up (7) Diabetes mellitus: Code(s): E11.9 - Type 2 diabetes mellitus without complications Category: Medical Qualifiers: Diabetes mellitus type: type 2 Diabetes mellitus termite control technician insulin use: without senior care use Diabetes mellitus complication status: with hyperglycemia Qualified Code(s): E11.65 - Type 2 diabetes mellitus with hyperglycemia Plan: His HgbA1c was at 5.5% when last checked a couple of months ago in September 2024 - goal is at least <7.0% Reinforced diabetic diet He has been previously referred for dietary counseling He was on Semaglutide but has been off the medication for a few weeks now due to his supposedly not being able to get his prescription refilled We will go ahead and start him back on Semaglutide at 2 mg SQ once a week (8) Vitamin D deficiency: Code(s): E55.9 - Vitamin D deficiency, unspecified Category: Medical Plan: Continue Vitamin D3 1000 units QD (9) Chronic idiopathic constipation: Code(s): K59.04 - Chronic idiopathic constipation Category: Medical Plan: Patient states that this is currently still well-controlled Reinforced increased oral fluids and dietary fiber intake Continue Linzess 145 mcg Q AM, Metamucil 0.4 gm BID PRN and MagOx 500 mg BID Follow up with GI as scheduled (10) Low back pain: Code(s): M54.50 - Low back pain, unspecified Category: Medical Qualifiers: Chronicity: unspecified Back pain laterality: midline Sciatica presence: without sciatica Qualified Code(s): M54.50 - Low back pain, unspecified Plan: Lumbar spine x-rays done back in April 2022 came out unremarkable and have advised patient that his recurrent low back pain is most likely related to his weight Reinforced activity and weight-lifting restrictions Continue Tizanidine 4 mg TID PRN (11) Alcoholism: Code(s): F10.20 - Alcohol dependence, uncomplicated Category: Medical Plan: Patient is currently still taking about 10 to 20 nips a day - he is again encouraged to try to quit drinking Continue Campral 333 mg BID Continue Thiamine 100 mg QD as well as his Vitamin B complex and Vitamin C daily (12) Insomnia: Code(s): G47.00 - Insomnia, unspecified Category: Medical Qualifiers: Insomnia type: unspecified Qualified Code(s): G47.00 - Insomnia, unspecified Plan: Sleep hygiene reinforced Continue Zolpidem 5 mg Q HS PRN (13) Schizoaffective disorder, bipolar type: Code(s): F25.0 - Schizoaffective disorder, bipolar type Category: Medical Plan: He was on Aripiprazole ER 400 mg IM Q 30 days and [place] 300 mg QD and 600 mg Q HS previously but states that he stopped taking these on his own and states that his psychiatrist was agreeable to this He appears to have been started on Sertraline 25 mg QD recently He was also on Adderall XR 35 mg total daily dose (30 mg + 5 mg) QD instead previously Follow up with psychiatry as scheduled (sees Johnny Macias) (14) Smoker: Code(s): F17.200 - Nicotine dependence, unspecified, uncomplicated Category: Social Hx Plan: Patient is counseled again on complete smoking cessation Per request, Rx for nicotine patches were again sent in to his pharmacy of choice (15) Morbid obesity with BMI of 45.0-49.9, adult: Code(s): E66.01 - Morbid (severe) obesity due to excess calories; Z68.42 - Body mass index [BMI] 45.0-49.9, adult Category: Medical Plan: Reinforced diet/exercise as tolerated/lose weight He was previously referred to weight management but states that he has not yet been contacted regarding his referral He will be started back on his Semaglutide injections, 2 mg SQ Q week to help him lose weight again - he has gained most or all of the weight he lost previously back at present Plan Follow up as scheduled next month Orders: Orders Complete Blood Count Auto Diff 1 Month D64.9 - Anemia, unspecified, R60.1 - Generalized edema Comprehensive Met. Panel 1 Month R60.1 - Generalized edema TSH reflex Free T4 1 Month E78.00 - Pure hypercholesterolemia, unspecified, R60.1 - Generalized edema UA CC w/rflx Micro + Cult 1 Month R30.0 - Dysuria, R60.1 - Generalized edema Medications: New azithromycin take 500 mg today (day 1), then 250 mg for 4 days (days 2-5) PO 6 tabs 0RF nicotine 1 patch transdermal DAILY 7 ea 0RF 7 days F17.200 - Nicotine dependence, unspecified, uncomplicated nicotine 1 patch transdermal Q24H 28 ea 5RF 28 days F17.200 - Nicotine dependence, unspecified, uncomplicated bumetanide HOLD Furosemide while taking this medication 1 mg PO DAILY 15 tabs 0RF edema Changed From albuterol sulfate 90 mcg/actuation 2 puffs inhalation RQ4H 30 days PRN 8.5 grams 0RF Shortness Of Breath/Wheezing To albuterol sulfate 90 mcg/actuation (Ventolin HFA) 2 puffs inhalation RQ4H PRN 8.5 grams 0RF Shortness Of Breath/Wheezing 30 days Refilled nicotine 1 patch transdermal Q24H 28 ea 3RF 28 days F17.200 - Nicotine dependence, unspecified, uncomplicated semaglutide 2 mg (0.75 mL) subcut QWEEK 3 mL 0RF 4 weeks
[2024-11-19 16:03] VITALS: BP 130/90; PULSE 112; TEMP 36.3; O2SAT 96; BMI 46.7
--- OUTSIDE RECORDS SUMMARY | 2024-11-19 18:35 | XMS_ITS | Data Portability ---
Author Organization [facility], Main Office Address [address] [facility] [place] [address] Care Team Providers Care Rubber Insulator Name Role Phone [facility] ([facility]) OTHER Assessment No assessment recorded. Plan [...] Details Recorded Time Left patellar tendon rupture [id number] 9100 Active [address] , [address], [place], [address], [facility] 5 05:39:03 Acute pain 394974929 Active 20[address] , [address], [place], [address], [facility] 5 05:39:18 Fracture of upper end of fibula 95918721 Active [address] , [address], [place], [address], [facility] 5 05:40:07 Anxiety 09969214 Active 20[address], [address], [place], [address], [facility] 5 05:40:50 Attention deficit hyperactivi ty disorder 119943238 Active 2024 [address] [facility], [address], [place], [address], [facility] 5 05:40:57 Tachycardia 5425142 Active 2024 [address] [facility], [address], [place], [address], [facility] 5 05:41:05 Asthenia 91481774 Active 2024 [address] [facility], [address], [place], [address], [facility] 5 05:42:19 Obstructive sleep apnea syndrome 84054079 Active 2024 [address] [facility], [address], [place], [address], [facility] 5 05:42:29 Problem Notes None recorded. Medical Equipment None Reported. Vitals Date Recorded Heart rate Respiratory rate Body temperature Oxygen saturation Oxygen saturation in Arterial blood by Pulse oximetry Systolic And Diastolic Provider Name and Address Organization Details Last Updated DateTime 5 100 /min 18 /min 97.9 [degF] 94 % 94 % 140/71 mm[Hg] GENET WHITE NP [address] [facility], [address], [place], [address], [facility] its learning 5 14:20:45 Social History None recorded. Functional Status None recorded. Mental Status None recorded. Family History Nothing Reported. Medical History No medical history recorded. Gynecological HistoryNo gynecological history recorded. Obstetrics History GPAL:G 0 P 0 0 0 0 Past Encounters Encounter ID Performer Location Encounter Start Date Encounter Closed Date Diagnosis/Indication Diagnosis SNOMED-CT Code Diagnosis ICD10 Code Diagnosis IMO Codes Diagnosis Note [id number] [place] [address] 02/20/2024 11:22:09 02/21/2024 12:21:51 Fracture of upper end of fibula 34211921 S89.D Left patellar tendon rupture requiring revision and placement of external fixator by Dr. Esquivel.Nonw eightbeari ng left lower extremityc ontinue to use walker or crutches for ambulation .continue oxycodone 5-10 mg q4h prncontinu e gabapentin 200 mg bidasa 81 mg bid x 3 moscontinu e PT Ara/up with orthopedic surgery as planned Left bowser lar tendon rupture [id number] 9401090 S76.112D see above Acute pain 822521064 R52 see pain med plan abovemonit or painmonito r utilizatio n of narcs and wean as tolerated Asthenia 35631848 R53.1 continue PT OTindepend ent at baseline Tachycardia 4421532 R00. 0 tachycardi c 150s with viqfrpr249 -130s at restdrinki ng a monster and on adderall (see HPI)check HR prior to adderall administra tionwill obtain an ECG to make sure hes not in afibmonito r vitals qshift x 3 days Obstructiv e sleep apnea syndrome 36343825 G47.33 not on CPAPshould have outpatient sleep study Attention deficit hyperactivity disorder 051174404 F90.9 continue adderall 35 mg dailymonit or HR prior to giving med Anxiety 64650709 F41.9 continue sertraline 50 mg qhscontinu e ambien 5 mg qhs prn for sleeprefus ed psych eval with [email or web address] [id number] GENET WHITE NP [facility] [address] [place] [address] 02/26/2024 14:20:03 02/28/2024 08:26:45 Fracture of upper end of fibula 94259459 S89.202D Left patellar tendon rupture requiring revision [...] go home. Left bowser lar tendon rupture [id number] 7176426 S76.112D see above Acute pain 766658893 R52 Pain controlled - continue APAP, gabapentin , and oxycodone. monitor pain, adjust meds as needed.mon itor utilizatio n of narcs and wean as tolerated Asthenia 58913008 R53.1 continue PT OTindepend ent at baseline Tachycardia 6317504 R00. 0 Monitor HR, check prior to adderall use daily.Avoi d caffeine - encouraged pt. to drink decaf coffee and avoid other drinks with high caffeine levels Check with nsg. re: EKG results Obstructiv e sleep apnea syndrome 29412977 G47.33 not on CPAPshould have outpatient sleep study Attention deficit hyperactivity disorder 326080636 F90.9 continue adderall 35 mg dailymonit or HR prior to giving med Anxiety 64756113 F41.9 continue sertraline 50 mg qhscontinu e ambien 5 mg qhs prn for sleeprefus ed psych eval with [email or web address] [id number] JASPAL BENDER, ADMITTING COORDINATOR-C [facility] [address] [place] [address] 03/05/2024 08:14:56 03/06/2024 15:48:02 Fracture of upper end of fibula 80340016 S89.202D Left patellar tendon rupture requiring revision [...] surgery fe Left bowser lar tendon rupture [id number] 5053317 S76.112D see above Asthenia 12088992 R53.1 returning home tomorrowin dependent at baselineus ing crutches and cane to ambulateho me PT OT set up Tachycardia 0558795 R00. 0 Monitor HR while on adderallAv oid caffeine - encouraged pt. to drink decaf coffee and avoid other drinks with high caffeine levels f/up with pcp Obstructiv e sleep apnea syndrome 16389516 G47.33 not on CPAPshould have outpatient sleep study Attention deficit hyperactivity disorder 957614521 F90.9 continue adderall 35 mg dailymonit or HR prior to taking medf/up with pcp Anxiety 10521323 F41.9 continue sertraline 50 mg qhscontinu e [...] Steve Member ID Guarantor Name 03/05/2024 1 [facility] - DOS ON OR AFTER 2022 - MEDICARE ADVANTAGE [place] & [place] (MEDICARE REPLACEMENT/ADV ANTAGE - PPO) Danielle Villar [id number] Danielle Villar Notes Date Note Type Note Provider Name and Address Organization Details Recorded Time 02/20/2024 text/html Pt is a 38-year-old male being seen today for a transfer of care. Pt has a recent fall with left patellar tendon rupture s/p repair on 01/18/2024. Once stable he was transferred to [place] to complete rehab. He was seen today [...] pain. PMH obesity, OSMAR, anxiety JASPAL BENDER, ADMITTING COORDINATOR-C [address] [facility], [address], [place], [address], [facility] 02/21/2024 06:04:41 02/26/2024 text/html Danielle is seen today for an acute visit. He is a [...] OSMAR, anxiety GENET WHITE NP [address] [facility], [address], [place], [address], [facility] 02/26/2024 14:45:59 03/05/2024 text/html Pt is a 38-year-old male being seen today for a discharge summary visit. Pt has a recent fall with left patellar tendon rupture s/p repair on 01/18/2024. Once stable he was transferred to [place] to complete rehab. Patient is being discharge [...] obesity, OSMAR, anxiety [address] [address] [facility], [address], [place], [address], [facility] 03/05/2024 09:04:12 OBGyn Episode No OBEpisode recorded.
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
== END 2024-11-19 16:30 | disposition home or self-care (01) ==
LOC: HO.HMCH 15:24
PROVIDERS: PCP Internal Medicine; Visit Provider Internal Medicine
DX: E11.65 Type 2 diabetes mellitus with hyperglycemia (principal); F10.20 Alcohol dependence, uncomplicated; F25.0 Schizoaffective disorder, bipolar type; Z68.42 Body mass index [BMI] 45.0-49.9, adult; E66.01 Morbid (severe) obesity due to excess calories; J06.9 Acute upper respiratory infection, unspecified; R60.1 Generalized edema; J45.20 Mild intermittent asthma, uncomplicated; K21.9 Gastro-esophageal reflux disease without esophagitis; E78.00 Pure hypercholesterolemia, unspecified; E55.9 Vitamin D deficiency, unspecified; S86.812S Strain of other muscle(s) and tendon(s) at lower leg level, left leg, sequela

== ENCOUNTER → 2024-11-19 15:24 | Outpatient (BNVA) | payer OTHER, SELFPAY | PROVIDERS: PCP Internal Medicine; Visit Provider Internal Medicine | DX: J45.20 Mild intermittent asthma, uncomplicated (principal); J06.9 Acute upper respiratory infection, unspecified; R60.1 Generalized edema; K21.9 Gastro-esophageal reflux disease without esophagitis; E78.00 Pure hypercholesterolemia, unspecified; E11.65 Type 2 diabetes mellitus with hyperglycemia; E55.9 Vitamin D deficiency, unspecified; K59.04 Chronic idiopathic constipation; M54.50 Low back pain, unspecified; F10.20 Alcohol dependence, uncomplicated; G47.00 Insomnia, unspecified; F25.0 Schizoaffective disorder, bipolar type; F17.210 Nicotine dependence, cigarettes, uncomplicated; E66.01 Morbid (severe) obesity due to excess calories; S86.812S Strain of other muscle(s) and tendon(s) at lower leg level, left leg, sequela; X58.XXXS Exposure to other specified factors, sequela; Z68.42 Body mass index [BMI] 45.0-49.9, adult | CPT/HCPCS: 99212 ==

== ENCOUNTER 2024-12-31 09:44 | Outpatient (AMB) | payer OTHER, SELFPAY ==
[2024-12-31 10:28] VITALS: BP 136/82; PULSE 108; O2SAT 99; BMI 48.3
--- NOTE | 2024-12-31 10:28 | MHC.PC.OV ---
Vital Signs 12/31/24 10:28 Height 5 ft 11 in Weight 346 lb 2 oz BMI 48.3 BP 136/82 Blood Pressure Location Lt brachial Position Sitting Pulse 108 H Pulse Source Pulse Oximeter Pulse Oximetry (%) 99 Oxygen Delivery Method Room Air Intake Visit Reasons: 4 mnth f/u Lathe Tender Required: No Accompanied by: Self / Same As Patient Allergies cat dander Allergy (Severe, Verified 12/31/24 12:17) Itchy Eyes No Known Drug Allergies Allergy (Severe, Verified 12/31/24 12:17) none Seasonal Allergies Allergy (Intermediate, Verified 12/31/24 12:17) snee pineapple Allergy (Verified 12/31/24 12:17) Itching aripiprazole (From Abiliy) Adverse Reaction (Intermediate, Verified 12/31/24 12:17) Swelling of leg Medication List - Last Reconciled 12/31/24 by Livan Rosales MD albuterol sulfate 90 mcg/actuation (Ventolin HFA) 2 puffs inhalation RQ4H PRN 30 days B-complex with vitamin C 1 cap PO DAILY 90 days bumetanide 1 mg PO DAILY cholecalciferol (vitamin D3) 25 mcg PO DAILY 90 days dextroamphetamine-amphetamine 15 mg (Adderall) 30 mg PO DAILY dextroamphetamine-amphetamine 5 mg (Adderall) 5 mg PO DAILY furosemide 40 mg PO DAILY [hand held shower head As directed] [Hip Kit with long handle As directed] ibuprofen 600 mg PO Q8H PRN 7 days nicotine 1 patch transdermal Q24H 28 days nicotine 1 patch transdermal DAILY 7 days nicotine 1 patch transdermal Q24H 28 days quetiapine 100 mg PO DAILY semaglutide 2 mg (0.75 mL) subcut QWEEK 4 weeks sertraline 25 mg PO DAILY [Shoe horn As directed] [shower chair As directed] [Sock aid As directed] zolpidem (Ambien) 5 mg PO BEDTIME Tobacco use date assessed: 12/31/24 Dental Screening Dental Screen Date: 12/31/24 HPI 4 mn f/u HPI Details Patient comes in today for his follow up visit He continues to complain of increased swelling and pain of both lower extremities, which he feels is getting worse now and he needs to have his Furosemide Rx refilled ABIGAIL He has gained over 10 pounds since his last visit here last month and since August 2024, has gained over 50 pounds (291 to 346) He has reportedly not been able to get his Semaglutide prescription refilled for the past few months (even though the Rx was sent in last month) and states that he also needs this refilled ABIGAIL so he can get back on it Notes (+) fatigue and ARMENTA lately as a result of his significant weight gain recently He denies any headaches or dizziness Denies any exertional chest pains No nausea/vomiting, no abdominal pain No change in bowel habits noted He did not get his follow up labs done prior to coming in for his appointment today despite being reminded to get them done at his appointment last month He is also requesting for a doctor's letter to allow his employer / work to be able to accommodate his request to be able to get up and move around every so often due to his recent left leg/knee injury [facility] Medical History Rupture of left patellar tendon GERD without esophagitis Schizoaffective disorder Dyspnea Vasectomy evaluation Chronic constipation Obesity (BMI 30-39.9) Morbid obesity with BMI of 40.0-44.9, adult Abdominal pain Abdominal swelling Vasectomy evaluation Schizoaffective disorder, bipolar type Smoker Vitamin D deficiency Pure hypercholesterolemia Elevated LFTs Alcoholism Asthma Surgical History History of surgery on lower extremity No significant past surgical history Family History Mother No problems noted. Father No problems noted. Social History Household Members: None Household Members Other:: none Housing: Apartment Do you presently have visiting nurse or other home services: No Alcohol intake: current Alcohol intake frequency: 3 or more drinks per day Alcohol type: beer and hard liquor Patient Tobacco Use Status: Current everyday Tobacco user Tobacco use type: Cigarette Cigarette Packs Per Day: 0.5 Cigarettes Per Day: 10 e-Cigarette/Vaping Use: Former Use Second Hand Smoke Exposure: Yes Substance Use Type: Marijuana service: No Current occupational status: disabled Sexual orientation: Don't Know Cognitive needs: No Hearing needs: No Vision needs: No Questionnaire PHQ-9 Over the last 2 weeks, how often have you been bothered by any of the following problems? 1. Little interest or pleasure in doing things: not at all 2. Feeling down, depressed, or hopeless: not at all 3. Trouble falling or staying asleep, or sleeping too much: not at all 4. Feeling tired or having little energy: not at all 5. Poor appetite or overeating: not at all 6. Feeling bad about yourself - or that you are a failure or have let yourself or your family down: not at all 7. Trouble concentrating on things, such as reading the newspaper or watching television: not at all 8. Moving or speaking so slowly that other people could have noticed. Or the opposite - being so fidgety or restless that you have been moving around a lot more than usual: not at all 9. Thoughts that you would be better off or of hurting yourself in some way: not at all Total score: 0 Depression Screening Interpretation: Negative Depression Screening Done: Yes 90187 - PHQ-9 Billing: Yes Source: Developed by Drs. Zay Lopez, Tonya Ornelas, Holger Bourgeois and colleagues, with an educational suellen from [employer]. Thrive Questionnaire Date Thrive assessed: 12/31/24 I am a: Patient What is your living situation today?: I have a steady place to live Within the past 12 months, did the food you bought not last and you didn't have the money to get more?: Never true Within the past 12 months, did you worry whether your food would run out before you got money to buy more?: Never true Do you have trouble paying for medicines?: No Do you have trouble getting transportation to medical appointments?: No Do you have trouble paying your heating and electricity bill?: No Do you have trouble taking care of your child, family member or friend?: No Do you have trouble with day-to-day activities such as bathing, preparing meals, shopping, managing finances, etc.?: No Are you currently unemployed and looking for a job?: No Are you interested in more education?: No Please select the resources that you would like help with: None Currently or been in a relationship where the following occur: No concerns reported THRIVE Score: 0 AUDIT C Alcohol Use Questionnaire (AUDIT-C) 1. How often do you have a drink containing alcohol?: Never 3. How often do you have six or more drinks on one occasion?: Never Total Score: 0 Score Reviewed/Action Taken: Yes KITTY-7 AMB Questionnaire KITTY-7 Date KITTY - 7 assessed: 12/31/24 Feeling nervous, anxious, or on edge: 0 = Not at all Not being able to stop or control worryin = Not at all Worrying too much about different things: 0 = Not at all Trouble relaxin = Not at all Being so restless that it is hard to sit still: 0 = Not at all Becoming easily annoyed or irritable: 0 = Not at all Feeling afraid as if something awful might happen: 0 = Not at all Total KITTY-7 score (0-4 normal; 5-9 mild; 10-14 moderate; 15-21 severe): 0 Source: Developed by Drs. Zay Lopez, Tonya Ornelas, Holger Bourgeois and colleagues, with an educational suellen from [employer]. Review of Systems Const Denies chills, Reports difficulty sleeping (Zolpidem helps), Reports fatigue, Denies fever(s), Denies headache(s) and Reports weight gain ENT Denies dysphagia, Denies dizziness, Denies otalgia, Denies headache(s), Denies neck pain, Denies odynophagia and Denies sore throat Card Denies chest pain and Reports dyspnea on exertion Resp Denies chest congestion, Reports cough (on and off), Reports dyspnea on exertion and Denies wheezing GI Denies abdominal pain, Reports constipation (chronic athough he reports moving his bowels daily), Denies dysphagia, Denies diarrhea, Denies nausea, Denies odynophagia and Denies vomiting Denies hematuria, Denies difficulty urinating, Denies nocturia and Denies urinary frequency Musc Reports back pain, Reports myalgias (diffuse), Reports arthralgias (left knee - S/P surgery for fracture and dislocation) and Denies neck pain Skin/Breast Denies rash Neuro Denies dizziness and Denies headache(s) Psych Reports anxiety, Denies depression, Reports difficulty concentrating and Denies irritability Endo Reports fatigue Leonel/Lymph Details: increased swelling of both legs, worse in the left leg Aller/Immun Denies wheezing Physical exam (Primary Care) Vital Signs: Last Vital Signs Pulse 108 H 12/31/24 10:28 BP 136/82 12/31/24 10:28 Pulse Ox 99 12/31/24 10:28 Oxygen Delivery Method Room Air 12/31/24 10:28 BMI result Body Mass Index 48.3 Tobacco/Smoking Status: Tobacco use Status Tobacco use date assessed 12/31/24 12/31/24 10:31 Patient Tobacco Use Status Current everyday Tobacco 12/31/24 10:31 Tobacco use type Cigarette 12/31/24 10:31 e-Cigarette/Vaping Use Former Use 12/31/24 10:31 PHQ-9: PHQ-9 Score PHQ-9: Total score 0 12/31/24 12:19 Depression Screening Interpretation: Negative Thrive Assessment: Date of Thrive Assessment Date Thrive assessed 12/31/24 12/31/24 10:41 Currently or been in a relationship where the following occur: No concerns reported Const General: no acute distress and alert HENMT Ears: TM's normal bilaterally and EAC's normal Throat: Yes posterior oropharynx normal and Yes tonsils normal (no TP congestion) Neck Neck: Yes supple and No lymphadenopathy Thyroid: Thyroid normal Resp Auscultation: no crackles, no rales, rhonchi (occasional ) throughout and no wheezes Cardio Rate: regular rate Rhythm: regular rhythm Heart sounds: no murmurs GI Palpation (GI): Soft to palpation and nontender Auscultation: normal bowel sounds General: Yes no CVA tenderness Back/Spine/Pelvis Back: no CVA tenderness Thoracic/Lumbar Spine: No lumbar spinal tenderness Skin Rashes: no rashes Extrem General: No clubbing, No cyanosis and Yes edema (increased over both lower extremities, worse on the left side) Coding Level of Care Code Est Pt Level 4 (42077) Diagnoses Mild intermittent asthma without complication J45.20 Asthma severity: mild Asthma persistence: intermittent Asthma complication type: uncomplicated Generalized edema R60.1 Edema type: generalized Rupture of left patellar tendon, sequela S86.812S Encounter type: sequela GERD without esophagitis K21.9 Pure hypercholesterolemia E78.00 Type 2 diabetes mellitus with hyperglycemia, without long-term current use of insulin E11.65 Diabetes mellitus type: type 2 Diabetes mellitus manager intermediate insulin use: without senior care use Diabetes mellitus complication status: with hyperglycemia Vitamin D deficiency E55.9 Chronic idiopathic constipation K59.04 Midline low back pain without sciatica, unspecified chronicity M54.50 Chronicity: unspecified Back pain laterality: midline Sciatica presence: without sciatica Alcoholism F10.20 Insomnia, unspecified type G47.00 Insomnia type: unspecified Schizoaffective disorder, bipolar type F25.0 Smoker F17.200 Morbid obesity with BMI of 45.0-49.9, adult E66.01; Z68.42 Additional Codes PHQ-9 - 90962 - PHQ-9 Billing: Yes ([id number]) Assessment & Plan Assessment & Plan (1) Asthma: Code(s): J45.909 - Unspecified asthma, uncomplicated Category: Medical Qualifiers: Asthma severity: mild Asthma persistence: intermittent Asthma complication type: uncomplicated Qualified Code(s): J45.20 - Mild intermittent asthma, uncomplicated Plan: Appears controlled at present Continue Albuterol HFA 1 to 2 inhalations Q 6 hours as needed (2) Edema: Code(s): R60.9 - Edema, unspecified Category: Medical Qualifiers: Edema type: generalized Qualified Code(s): R60.1 - Generalized edema Plan: Over both lower extremities but worse on the left side - this is most likely stasis or dependent edema His left knee injury late last year is likely causing the left side to be worse He was tried on Bumetanide 1 mg QD for a couple of weeks last month with some relief Patient would like to go back on his Furosemide 40 mg QD (Rx refilled) and is wondering if he can be switched to a higher dose than 40 mg but advised that he should at least go and get his labs done first so we can find out how his renal function is at present Patient is also advised to continue to keep his legs elevated as often as he can to help manage his edema (3) Rupture of left patellar tendon: Code(s): S86.812A - Strain of other muscle(s) and tendon(s) at lower leg level, left leg, initial encounter Category: Medical Qualifiers: Encounter type: sequela Qualified Code(s): S86.812S - Strain of other muscle(s) and tendon(s) at lower leg level, left leg, sequela Plan: Patient's left knee injury occurred in January 2024 He first underwent left patellar tendon repair on 01/18/2024 but he ruptured the tendon again after removing some of his cast He had a revision surgery done on 01/31/2024 and was at rehab for over a month Patient states that his left knee is still bothering him but the pain now is a lot better than it was earlier this year Follow up with orthopedics as scheduled (4) GERD without esophagitis: Code(s): K21.9 - Gastro-esophageal reflux disease without esophagitis Category: Medical Plan: Abdominal US done in December 2023 revealed a heterogeneous liver texture with nodular surface raising suspicion for liver parenchymal disease or liver cirrhosis. (+) recanalized umbilical vein raises the possibility of portal hypertension and portosystemic shunting. May consider correlation with cross-sectional imaging CT scan or MRI for further investigation. No ultrasound evidence of gallbladder disease or gallstones and the pancreas is not well visualized and is obscured by bowel gas Dietary restrictions reinforced Continue Omeprazole 40 mg QD Follow up with GI as scheduled (5) Pure hypercholesterolemia: Code(s): E78.00 - Pure hypercholesterolemia, unspecified Category: Medical Plan: Reinforced low cholesterol diet We have been holding off on starting him on cholesterol-lowering medications due to his elevated LFTs Will have patient recheck his labs and fasting lipids ABIGAIL for follow-up - he was supposed to get them done before his appointment today but he did not get them done (6) Diabetes mellitus: Code(s): E11.9 - Type 2 diabetes mellitus without complications Category: Medical Qualifiers: Diabetes mellitus type: type 2 Diabetes mellitus manager intermediate insulin use: without manager intermediate use Diabetes mellitus complication status: with hyperglycemia Qualified Code(s): E11.65 - Type 2 diabetes mellitus with hyperglycemia Plan: His HgbA1c was at 5.5% when last checked a few months ago in September 2024 - goal is at least <7.0% Reinforced diabetic diet He has been previously referred for dietary counseling He was on Semaglutide but has been off the medication for a few months now due to his supposedly not being able to get his prescription refilled We will start him back on Semaglutide 2 mg SQ once a week - Rx sent (7) Vitamin D deficiency: Code(s): E55.9 - Vitamin D deficiency, unspecified Category: Medical Plan: Continue Vitamin D3 1000 units QD (8) Chronic idiopathic constipation: Code(s): K59.04 - Chronic idiopathic constipation Category: Medical Plan: Patient states that this is currently still well-controlled Reinforced increased oral fluids and dietary fiber intake Continue Linzess 145 mcg Q AM, Metamucil 0.4 gm BID PRN and MagOx 500 mg BID Follow up with GI as scheduled (9) Low back pain: Code(s): M54.50 - Low back pain, unspecified Category: Medical Qualifiers: Chronicity: unspecified Back pain laterality: midline Sciatica presence: without sciatica Qualified Code(s): M54.50 - Low back pain, unspecified Plan: Lumbar spine x-rays done back in April 2022 came out unremarkable and have advised patient that his recurrent low back pain is most likely related to his weight Reinforced activity and weight-lifting restrictions Continue Tizanidine 4 mg TID PRN (10) Alcoholism: Code(s): F10.20 - Alcohol dependence, uncomplicated Category: Medical Plan: Patient is currently still taking about 10 to 20 nips a day - he is again encouraged to try to quit drinking Continue Campral 333 mg BID Continue Thiamine 100 mg QD as well as his Vitamin B complex and Vitamin C daily (11) Insomnia: Code(s): G47.00 - Insomnia, unspecified Category: Medical Qualifiers: Insomnia type: unspecified Qualified Code(s): G47.00 - Insomnia, unspecified Plan: Sleep hygiene reinforced Continue Zolpidem 5 mg Q HS PRN (12) Schizoaffective disorder, bipolar type: Code(s): F25.0 - Schizoaffective disorder, bipolar type Category: Medical Plan: He was on Aripiprazole ER 400 mg IM Q 30 days and [place] 300 mg QD and 600 mg Q HS previously but states that he stopped taking these on his own and states that his psychiatrist was agreeable to this Continue Sertraline 25 mg QD He was also on Adderall XR 35 mg total daily dose (30 mg + 5 mg) QD instead previously Follow up with psychiatry as scheduled (sees Johnny Macias) (13) Smoker: Code(s): F17.200 - Nicotine dependence, unspecified, uncomplicated Category: Social Hx Plan: Patient is counseled again on complete smoking cessation Per request, Rx for nicotine patches were again sent in to his pharmacy of choice last month (14) Morbid obesity with BMI of 45.0-49.9, adult: Code(s): E66.01 - Morbid (severe) obesity due to excess calories; Z68.42 - Body mass index [BMI] 45.0-49.9, adult Category: Medical Plan: Reinforced diet/exercise as tolerated/lose weight He was previously referred to weight management but states that he has not yet been contacted regarding his referral He will be started back on his Semaglutide injections, 2 mg SQ Q week to help him lose weight again - he has gained over 50 pounds since August 2024 Plan Follow up as scheduled in February 2025 Medications: Refilled semaglutide 2 mg (0.75 mL) subcut QWEEK 3 mL 0RF 4 weeks furosemide 40 mg PO DAILY 90 tabs 0RF
== END 2024-12-31 11:07 | disposition home or self-care (01) ==
LOC: HO.HMCH 09:45
PROVIDERS: PCP Internal Medicine; Visit Provider Internal Medicine
DX: J45.20 Mild intermittent asthma, uncomplicated (principal); R60.1 Generalized edema; S86.812S Strain of other muscle(s) and tendon(s) at lower leg level, left leg, sequela; K21.9 Gastro-esophageal reflux disease without esophagitis; E78.00 Pure hypercholesterolemia, unspecified; E11.65 Type 2 diabetes mellitus with hyperglycemia; E55.9 Vitamin D deficiency, unspecified; K59.04 Chronic idiopathic constipation; F10.20 Alcohol dependence, uncomplicated; F25.0 Schizoaffective disorder, bipolar type; E66.01 Morbid (severe) obesity due to excess calories; Z68.42 Body mass index [BMI] 45.0-49.9, adult; M54.50 Low back pain, unspecified; G47.00 Insomnia, unspecified; F17.200 Nicotine dependence, unspecified, uncomplicated

== ENCOUNTER → 2024-12-31 09:44 | Outpatient (BNVA) | payer OTHER, SELFPAY | PROVIDERS: PCP Internal Medicine; Visit Provider Internal Medicine | DX: J45.20 Mild intermittent asthma, uncomplicated (principal); E66.01 Morbid (severe) obesity due to excess calories; R60.1 Generalized edema; K21.9 Gastro-esophageal reflux disease without esophagitis; E78.00 Pure hypercholesterolemia, unspecified; E11.65 Type 2 diabetes mellitus with hyperglycemia; E55.9 Vitamin D deficiency, unspecified; K59.04 Chronic idiopathic constipation; M54.50 Low back pain, unspecified; F10.20 Alcohol dependence, uncomplicated; G47.00 Insomnia, unspecified; F25.0 Schizoaffective disorder, bipolar type; S86.812S Strain of other muscle(s) and tendon(s) at lower leg level, left leg, sequela; F17.210 Nicotine dependence, cigarettes, uncomplicated; Z68.42 Body mass index [BMI] 45.0-49.9, adult | CPT/HCPCS: 96127; 99212 ==

== ENCOUNTER 2025-01-01 08:56 | Outpatient (REF) | payer OTHER, SELFPAY ==
[2025-01-01 09:08] LABS: MANUAL DIFF FLAG NO
[2025-01-01 10:07] LABS: Hematocrit 43.4 % (42.0-52.0); Hemoglobin 14.1 g/dl (14.0-18.0); Imm Gran Abs Auto 0.01 X10*3/uL (0.00-0.03); Imm Gran Pct Auto 0.2 % (0.0-0.4); Lymphocytes Absolute Auto 2.4 X10*3/uL (1.2-4.9); Mean Corpuscular HGB Conc 32.5 g/dl (31.0-36.0); Mean Corpuscular Hemoglobin 26.3 pg (27.0-33.0); Mean Corpuscular Volume 81.0 fL (80.0-98.0); NRBC Abs Auto 0.000 X10*3/uL (0.0-0.012); NRBC Pct Auto 0.0 /100WBC (0.0-0.2); Platelet Count 312 X10*3/uL (160-400); Red Blood Count 5.36 X10*6/uL (4.60-5.80); White Blood Count 5.6 X10*3/uL (4.8-10.8)
[2025-01-01 10:13] LABS: Appearance Urine Clear; Glucose Urine UA Negative (Negative); PH 5.5 (5.0-9.0); Specific Gravity - Urine 1.025 (1.005-1.025)
[2025-01-01 10:38] LABS: Alanine Aminotransferase 36 U/L (0-40); Albumin Level 4.2 g/dL (3.5-5.0); Alkaline Phosphatase 59 U/L (39-117); Anion Gap 13 (12-20); Aspartate Amino Transferase 30 U/L (5-37); Blood Urea Nitrogen 11 mg/dL (9-16); Calcium 9.1 mg/dL (8.4-10.2); Carbon Dioxide 26 mmol/L (22-29); Chloride 107 mmol/L (96-108); Estimated Glomerular Filt Rate > 60; Potassium 4.1 mmol/L (3.3-5.1); Sodium 142 mmol/L (135-145); Total Protein 7.5 g/dL (6.5-8.0)
[2025-01-01 10:39] LABS: NT Pro B Type Natriuretic Pept < 15.8 pg/mL (<300)
--- OUTSIDE RECORDS SUMMARY | 2025-01-01 16:35 | XMS_ITS | Data Portability ---
Author Organization [facility], Main Office Address [address], [address] [place] [address] Care Team Providers Care Green Hide Inspector Name Role Phone [facility] ([facility]) OTHER Assessment No [...] Details Recorded Time Left patellar tendon rupture [id number] 9100 Active [address] , [address], [place], [address], [facility] 5 05:39:03 Acute pain 744911590 Active [address] , [address], [place], [address], [facility] [employer] ([facility]) [facility] 5 05:39:18 Fracture of upper end of fibula 56560020 Active [address] , [address], [place], [address], [facility] [employer] ([facility]) [facility] 5 05:40:07 Anxiety 38514572 Active [address], [address], [place], [address], [facility] [employer] ([facility]) [facility] 5 05:40:50 Attention deficit hyperactivi ty disorder 374584492 Active [address] [facility], [address], [place], [address], [facility] 5 05:40:57 Tachycardia 4397280 Active [address] [facility], [address], [place], [address], [facility] 5 05:41:05 Asthenia 45361462 Active [address], [address], [place], [address], [facility] 5 05:42:19 Obstructive sleep apnea syndrome 90082058 Active [address] [facility], [address], [place], [address], [facility] 5 05:42:29 Problem Notes None recorded. Medical Equipment None Reported. Vitals Date Recorded Heart rate Respiratory rate Body temperature Oxygen saturation Oxygen saturation in Arterial blood by Pulse oximetry Systolic And Diastolic Provider Name and Address Organization Details Last Updated DateTime 5 100 /min 18 /min 97.9 [degF] 94 % 94 % 140/71 mm[Hg] GENET WHITE NP [address], [address], [place], [address], [facility] 5 14:20:45 Social History None recorded. Functional Status None recorded. Mental Status None recorded. Family History Nothing Reported. Medical History No medical history recorded. Gynecological HistoryNo gynecological history recorded. Obstetrics History GPAL:G 0 P 0 0 0 0 Past Encounters Encounter ID Performer Location Encounter Start Date Encounter Closed Date Diagnosis/Indication Diagnosis SNOMED-CT Code Diagnosis ICD10 Code Diagnosis IMO Codes Diagnosis Note [id number] [place] [address] 02/20/2024 11:22:09 02/21/2024 12:21:51 Fracture of upper end of fibula 14706568 S89.D Left patellar tendon rupture requiring revision and placement of external fixator by Dr. Esquivel.Nonw eightbeari ng left lower extremityc ontinue to use walker or crutches for ambulation .continue oxycodone 5-10 mg q4h prncontinu e gabapentin 200 mg bidasa 81 mg bid x 3 moscontinu e PT Ara/up with orthopedic surgery as planned Left bowser lar tendon rupture [id number] 4624670 S76.112D see above Acute pain 359474103 R52 see pain med plan abovemonit or painmonito r utilizatio n of narcs and wean as tolerated Asthenia 01418520 R53.1 continue PT OTindepend ent at baseline Tachycardia 8122681 R00. 0 tachycardi c 150s with ybxslut502 -130s at restdrinki ng a monster and on adderall (see HPI)check HR prior to adderall administra tionwill obtain an ECG to make sure hes not in afibmonito r vitals qshift x 3 days Obstructiv e sleep apnea syndrome 87035007 G47.33 not on CPAPshould have outpatient sleep study Attention deficit hyperactivity disorder 820469467 F90.9 continue adderall 35 mg dailymonit or HR prior to giving med Anxiety 60601799 F41.9 continue sertraline 50 mg qhscontinu e ambien 5 mg qhs prn for sleeprefus ed psych eval with [email or web address] [id number] GENET WHITE NP [facility] [address] [place] [address] 02/26/2024 14:20:03 02/28/2024 08:26:45 Fracture of upper end of fibula 44008529 S89.202D Left patellar tendon rupture requiring revision [...] go home. Left bowser lar tendon rupture [id number] 1757378 S76.112D see above Acute pain 984525890 R52 Pain controlled - continue APAP, gabapentin , and oxycodone. monitor pain, adjust meds as needed.mon itor utilizatio n of narcs and wean as tolerated Asthenia 02672737 R53.1 continue PT OTindepend ent at baseline Tachycardia 0991350 R00. 0 Monitor HR, check prior to adderall use daily.Avoi d caffeine - encouraged pt. to drink decaf coffee and avoid other drinks with high caffeine levels Check with nsg. re: EKG results Obstructiv e sleep apnea syndrome 61684922 G47.33 not on CPAPshould have outpatient sleep study Attention deficit hyperactivity disorder 750360155 F90.9 continue adderall 35 mg dailymonit or HR prior to giving med Anxiety 70995009 F41.9 continue sertraline 50 mg qhscontinu e ambien 5 mg qhs prn for sleeprefus ed psych eval with [email or web address] [address] [id number] JASPAL BENDER, GREENHOUSE TECHNICIAN-C [facility] [address] [place] [address] 03/05/2024 08:14:56 03/06/2024 15:48:02 Fracture of upper end of fibula 75618358 S89.202D Left patellar tendon rupture requiring revision [...] surgery fe Left bowser lar tendon rupture [id number] 4045403 S76.112D see above Asthenia 04476270 R53.1 returning home tomorrowin dependent at baselineus ing crutches and cane to ambulateho me PT OT set up Tachycardia 4625035 R00. 0 Monitor HR while on adderallAv oid caffeine - encouraged pt. to drink decaf coffee and avoid other drinks with high caffeine levels f/up with pcp Obstructiv e sleep apnea syndrome 30001981 G47.33 not on CPAPshould have outpatient sleep study Attention deficit hyperactivity disorder 773160124 F90.9 continue adderall 35 mg dailymonit or HR prior to taking medf/up with pcp Anxiety 00636734 F41.9 continue sertraline 50 mg qhscontinu e [...] Steve Member ID Guarantor Name 03/05/2024 1 [facility] - DOS ON OR AFTER 2022 - MEDICARE ADVANTAGE [place] (MEDICARE REPLACEMENT/ADV ANTAGE - PPO) Danielle Villar [id number] Danielle Villar Notes Date Note Type Note Provider Name and Address Organization Details Recorded Time 02/20/2024 text/html Pt is a 38-year-old male being seen today for a transfer of care. Pt has a recent fall with left patellar tendon rupture s/p repair on 01/18/2024. Once stable he was transferred to [place] to complete rehab. He was seen today [...] pain. PMH obesity, OSMAR, anxiety JASPAL BENDER, GREENHOUSE TECHNICIAN-C [address], [address], [place], [address], [facility] 02/21/2024 06:04:41 02/26/2024 text/html Danielle is [...] obesity, OSMAR, anxiety GENET WHITE NP [address], [address], [place], [address], [facility] 02/26/2024 14:45:59 03/05/2024 text/html Pt is a 38-year-old male being seen today for a discharge summary visit. Pt has a recent fall with left patellar tendon rupture s/p repair on 01/18/2024. Once stable he was transferred to [place] to complete rehab. Patient is being discharge [...] PMH obesity, OSMAR, anxiety [address], [address], [place], [address], [facility] 03/05/2024 09:04:12 OBGyn Episode No OBEpisode recorded.
--- OUTSIDE RECORDS SUMMARY | 2025-01-01 16:35 | XMS_ITS | Clinical Summary ---
Author Organization [address] [place] [address] [place] [address] Phone Care Team Providers Care Procurement Inspector Name Role Phone Livan Rosales MD [...] EDT - 10/28/2024 12:51 AM EDT Emergency [facility] Emergency [address] [place] [address] Jessica Duron MD Left leg swelling (Primary [...] care for your loved ones. For example, children librarian or elderly care for an older adult? [...] this topic Medical Devices Implanted Type Area Transportation Manager Device Identifier Shelf Expiration Date Model / Serial / Lot Clamp [place] 4h Arbor Returned Item Clerk Fixation - Sn/A - [id number] Implanted:Qty: 10 on 01/31/2024 by Leann Esquivel MD at [facility] Internal and External Fixation Left: Leg [facility] 1173.0001 / N/A / N/A Bar Carbn Fiber [id number] Abror Returned Item Clerk Fixation - Sn/A - [id number] Implanted:Qty: 4 on 01/31/2024 by Leann Esquivel MD at [facility] Internal and External Fixation Left: Femur [facility] 5173.1135 / N/A / N/A Pin Schanz [id number] Slf Drill 40mm Cortical Thrd Ss Arbor - Sn/A - [id number] Implanted:Qty: 2 on 01/31/2024 by Leann Esquivel MD at [facility] Internal and External Fixation Left: Femur [facility] 2173.6404 / N/A / N/A Pin Schanz [id number] Slf Drill 40mm Cortical Thrd Ss Arbor - Sn/A - [id number] Implanted:Qty: 2 on 01/31/2024 by Leann Esquivel MD at [facility] Internal and External Fixation Left: Leg [facility] 2173.9405 / N/A / N/A Procedures Procedure [...] CBC auto differential (10/28/2024 12:09 AM EDT) [facility] WBC 8.1 4.8 - 10.8 K/mcL LAB HEMETOLOGY METHOD 10/28/2024 12:45 AM [facility] RBC 4.80 4.50 - 5.50 M/mcL LAB HEMETOLOGY METHOD 10/28/2024 12:45 AM [facility] Hemoglobin 12.6(L) 13.5 - 17.5 g/dL LAB HEMETOLOGY METHOD 10/28/2024 12:45 AM [facility] Hematocrit 40.2(L) 42.0 - 54.0 % LAB HEMETOLOGY METHOD 10/28/2024 12:45 AM [facility] MCV 83.2 79.0 - 98.0 FL LAB HEMETOLOGY METHOD 10/28/2024 12:45 AM [facility] MCH 26.1(L) 27.0 - 32.0 pcg LAB HEMETOLOGY METHOD 10/28/2024 12:45 AM [facility] MCHC 31.3(L) 32.0 - 37.0 g/dL LAB HEMETOLOGY METHOD 10/28/2024 12:45 AM [facility] RDW 15.0 11.0 - 15.0 % LAB HEMETOLOGY METHOD 10/28/2024 12:45 AM [facility] Platelets 310 130 - 400 K/mcL LAB HEMETOLOGY METHOD 10/28/2024 12:45 AM [facility] MPV 9.9 7.0 - 11.0 FL LAB HEMETOLOGY METHOD 10/28/2024 12:45 AM [facility] NRBC 0.0 <1.0 % LAB HEMETOLOGY METHOD 10/28/2024 12:45 AM [facility] NRBC Absolute 0.00 <0.10 K/mcL LAB HEMETOLOGY METHOD 10/28/2024 12:45 AM [facility] Neutrophils Relative 54.5 % LAB HEMETOLOGY METHOD 10/28/2024 12:45 AM [facility] Lymphocytes Relative 32.9 % LAB HEMETOLOGY METHOD 10/28/2024 12:45 AM [facility] Monocytes Relative 9.1 % LAB HEMETOLOGY METHOD 10/28/2024 12:45 AM [facility] Eosinophils Relative 2.3 % LAB HEMETOLOGY METHOD 10/28/2024 12:45 AM [facility] Basophils Relative 0.6 % LAB HEMETOLOGY METHOD 10/28/2024 12:45 AM [facility] Immature Granulocytes Relative 0.6 % LAB HEMETOLOGY METHOD 10/28/2024 12:45 AM [facility] Neutrophils Absolute 4.43 1.50 - 7.00 K/mcL LAB HEMETOLOGY METHOD 10/28/2024 12:45 AM [facility] Lymphocytes Absolute 2.68 1.00 - 5.00 K/mcL LAB HEMETOLOGY METHOD 10/28/2024 12:45 AM [facility] Monocytes Absolute 0.74 0.20 - 1.00 K/mcL LAB HEMETOLOGY METHOD 10/28/2024 12:45 AM [facility] Eosinophils Absolute 0.19 0.00 - 0.50 K/[facility] LAB HEMETOLOGY METHOD 10/28/2024 12:45 AM EDT [facility] Basophils Absolute 0.05 0.00 - 0.20 K/[facility] LAB HEMETOLOGY METHOD 10/28/2024 12:45 AM EDT [facility] Immature Granulocytes Absolute 0.05(H) 0.00 - 0.03 K/[facility] LAB HEMETOLOGY METHOD 10/28/2024 12:45 AM EDT [facility] Blood Venous blood specimen / Unknown Venipuncture / Unknown 10/28/2024 12:09 AM EDT 10/28/2024 12:16 AM EDT us Dean Faye MD LAB BLOOD ORDERABLES Final Result [facility] [address] [place] [address], * (ABNORMAL) Basic metabolic panel (10/28/2024 12:09 AM EDT) Sodium 139 133 - 145 mmol/L LAB CHEMISTRY METHOD 10/28/2024 12:37 AM [facility] Potassium 3.8 3.5 - 5.5 mmol/L LAB CHEMISTRY METHOD 10/28/2024 12:37 AM [facility] Chloride 108 96 - 110 mmol/L LAB CHEMISTRY METHOD 10/28/2024 12:37 AM [facility] CO2 25 21 - 32 mmol/L LAB CHEMISTRY METHOD 10/28/2024 12:37 AM [facility] Anion Gap 6 3 - 11 LAB CHEMISTRY METHOD 10/28/2024 12:37 AM [facility] Glucose 161(H) 70 - 100 mg/dL LAB CHEMISTRY METHOD 10/28/2024 12:37 AM [facility] BUN 11 5 - 25 mg/dL LAB CHEMISTRY METHOD 10/28/2024 12:37 AM EDT [facility] Creatinine 0.81 0.70 - 1.30 mg/dL LAB CHEMISTRY METHOD 10/28/2024 12:37 AM EDT [facility] eGFR 116 >=60 mL/min/1. 73m2 LAB CHEMISTRY METHOD 10/28/2024 12:37 AM EDT [facility] Comment:Calculation based on the Chronic Kidney Disease Epidemiology Collaboration (CKD-EPI) equation refit without adjustment for race. BUN/Creatinine Ratio 13.6 LAB CHEMISTRY METHOD 10/28/2024 12:37 AM EDT [facility] Calcium 8.3(L) 8.5 - 10.5 mg/dL LAB CHEMISTRY METHOD 10/28/2024 12:37 AM EDT [facility] Blood Venous blood specimen / Unknown Venipuncture / Unknown 10/28/2024 12:09 AM EDT 10/28/2024 12:16 AM EDT us Dean Faye MD LAB BLOOD ORDERABLES Final Result [facility] [address] [place] [address], * Vascular US Duplex Lower Extremity Venous [...] Signed Date: 10/28/2024 03:08 ET Workstation ID: [id number] Transcribed By: Self Edit Transcribed Date: 10/28/2024 [...] Signed Date: 10/28/2024 03:08 ET Workstation ID: [id number] Transcribed By: Self Edit Transcribed Date: 10/28/2024 03:06 ET Dean Faye MD CV VASCULAR PROCEDURES Anastasiia l Result from Last 3 Months Insurance [facility] MEDICARE Member Subscriber Plan / Payer (Ef fective 2021-Present) Name:DANIELLE MANZO JR Relation to Subscriber:Self Name:Danielle Manzo Payer ID:[id number] Group ID:[id number] Type:Not on file Address: [address] [place] [address] [facility] MEDICARE Member Subscriber Plan / Payer (Ef fective 2021-Present) Name:DANIELLE MANZO JR Relation to Subscriber:Self Name:Danielle Manzo Payer ID:[id number] Group ID:[id number] Type:Not on file Address: [address] [place] [address] MEDICAID - [place] Advance Directives Documents on File Type Date Recorded Patient Materials Supervisor Expl anation Advance Directives and Livin g [...] currently active code status orders. Care Teams Procurement Inspector Relationship Specialty Start Date End Date Livan Rosales MD [address] [place] [address] [address] [place] PCP - General Internal Medicine 01/17/24
--- OUTSIDE RECORDS SUMMARY | 2025-01-01 16:35 | XMS_ITS | Encounter Summary ---
Author Organization [facility] Address [address] [place] [address] Care Team Providers Care Laborer Pipeline Name Role Phone Livan Rosales MD Primary Care Provider [phone] Encounter Details Date Type Department Care Team (Late st Contact Info) Description 02/21/2024 Lab Requisition [facility] Main Lab [address] [facility] [place] [address] Berry Garcia MD [address] [facility] [address] [place], [address] Tachycardia, unspecified Social History Tobacco Use [...] for your loved ones. For example, children's ministry director or elderly care for an older [...] [facility] Comment:Calculation based on the Chronic [...] MD LAB BLOOD ORDERABLES Final Resul t [facility] [address] [place] [address], * (ABNORMAL) Complete blood count (02/21/2024 5:32 [...] LAB HEMETOLOGY METHOD 02/21/2024 9:57 AM EST [facility] MCV 82.1 79.0 - 98.0 [...] MD LAB BLOOD ORDERABLES Final Resul t [facility] [address] [place] [address], documented in this encounter Visit Diagnoses Diagnosis Tachycardia, unspecified documented in this encounter Care Teams Laborer Pipeline Relationship Specialty Start Date End Date Livan Rosales MD [address] [place] [address] Dr Patricia [place], [place] PCP - General Internal Medicine 01/17/24 documented as of this encounter
== END 2025-01-01 08:57 | disposition home or self-care (01) ==
LOC: HO.LAB 08:56
PROVIDERS: PCP Internal Medicine; Visit Provider Internal Medicine
DX: R60.1 Generalized edema (principal); R30.0 Dysuria; R06.09 Other forms of dyspnea; E78.00 Pure hypercholesterolemia, unspecified; D64.9 Anemia, unspecified
CPT/HCPCS: 36415; 80053; 81003; 83880; 84443; 85025